=== PATIENT | male | born 1955 | race African-American/Black ===

== ENCOUNTER 2016-08-25 15:22 | Inpatient (IN) | payer OTHER ==
[2016-08-25 15:35] VITALS: BMI 25.5
--- NOTE | 2016-08-25 15:36 | PDOC ---
Rapid Medical Evaluation Time Seen by Provider: 08/25/16 15:29 Medical Evaluation: Allergies Allergy/AdvReac Type Severity Reaction Status Date / Time Penicillins Allergy Severe Rash Verified 08/25/16 15:32 seafood Allergy Severe Rash Uncoded 08/25/16 15:32 08/25/16 15:34 I have performed a brief in-person evaluation of this patient. The patient presents with a chief complaint of: 61y/o M cardiac hx, COPD p/w 1 week progressive cough, SOB. Sent by Dr. Neves to r/o PNA. Pertinent physical exam findings: tachy, O2 86-94% bibasilar coarse breath sounds, slight wheezing abd soft tachy I have ordered the following: sepsis protocol initiated 2/2 tachy and relative hypoxia, r/o pna ekg, cxr The patient will proceed to the ED for further evaluation.
[2016-08-25 16:22] LABS: BASOPHIL 0.3 % (0-2.0); MCH 28.4 pg (25.7-33.7); MCHC 33.3 g/dl (32.0-35.9); MEAN CELL VOLUME 85.1 fl (80-96); MEAN PLT VOLUME 7.6 fl (7.5-11.1); NEUTROPHILS 83.7 % (42.8-82.8); PLATELET COUNT 385 K/MM3 (134-434); RDW 15.2 % (11.9-15.9); WHITE BLOOD COUNT 11.2 K/mm3 (4.0-10.0)
[2016-08-25] MEDS ORDERED: ALBUTEROL SO4 2.5/IPRATROPIUM 0.5 INH SOL 3 ML VIAL.NEB. NEB ONE ×3 (16:37→17:30)
[2016-08-25 16:47] LABS: URINE APPEARANCE CLEAR; URINE BILIRUBIN NEGATIVE (NEGATIVE); URINE BLOOD NEGATIVE (NEGATIVE); URINE COLOR YELLOW; URINE GLUCOSE (UA) NEGATIVE (NEGATIVE); URINE KETONE TRACE (NEGATIVE); URINE LEUK ESTERASE NEGATIVE (NEGATIVE); URINE NITRITE NEGATIVE (NEGATIVE); URINE PROTEIN NEGATIVE (NEGATIVE); URINE UROBILINOGEN NEGATIVE E.U./dl (0.2-1.0)
--- NOTE | 2016-08-25 16:56 | PDOC ---
History of Present Illness <Gabriela Carter - Last Filed: 08/25/16 18:23> - History of Present Illness Initial Comments: 08/25/16 17:29 The patient is a 61 year old male with a past medical hx of COPD, asthma, CAD s/ p PCI and stents s/p CABG in 2013, HTN, HLD who presents to the ED complaining of cough and shortness of breath for 4 days. He reports his cough is productive. The patient reports he saw his PCP on Wednesday and was given a Zpack for his symptoms. The patient notes no relief of his symptoms despite taking the Zpack. The patient states he has oxygen at home but is not fully dependent on it. He states he used his nebulizer treatment one time today. He reports associated chills and diarrhea. The patient denies fever, chest pain The patient denies nausea, vomiting, abdominal pain PCP: Dr. Hendrix Advertising Agent: Dr. Bernabe Social: Former smoker Allergies: Penicillins <Cheri Solorio - Last Filed: 08/25/16 18:42> - General Chief Complaint: Shortness of Breath Stated Complaint: SOB, WHEEZING Time Seen by Provider: 08/25/16 15:29 Past History - Past Medical History Anemia: No Asthma: No Cancer: No Cardiac Disorders: Yes ([place], stent, BYPASS) CVA: No COPD: Yes CHF: Yes Dementia: No Diabetes: No GI Disorders: No Disorders: No HTN: Yes Hypercholesterolemia: Yes Liver Disease: No Psychiatric Problems: Yes (anxiety) Seizures: No Thyroid Disease: No - Surgical History Abdominal Surgery: No Appendectomy: No Cardiac Surgery: Yes (Stent, cardiaccath) Cholecystectomy: No Lung Surgery: No Neurologic Surgery: No Orthopedic Surgery: Yes (KNEE) - Immunization History Immunization Up to Date: Yes - Psycho/Social/Smoking Cessation Hx Anxiety: No Suicidal Ideation: No Smoking Status: No Smoking History: Former smoker Have you smoked in the past 12 months: No Number of Cigarettes Smoked Daily: 0 If you are a former smoker, when did you quit?: 2 years Information on smoking cessation initiated: No Hx Alcohol Use: No Drug/Substance Use Hx: No Substance Use Type: None Hx Substance Use Treatment: No <Gabriela Carter - Last Filed: 08/25/16 18:23> <Cheri Solorio - Last Filed: 02/28/17 18:42> - Past Medical History Allergies/Adverse Reactions: Allergies Allergy/AdvReac Type Severity Reaction Status Date / Time Penicillins Allergy Severe Rash Verified 08/25/16 15:32 seafood Allergy Severe Rash Uncoded 08/25/16 15:32 Home Medications: Ambulatory Orders Acetaminophen [Tylenol .Regular Strength -] 650 mg PO Q6H PRN #0 tablet Albuterol 2.5/Ipratropium 0.5 [Duoneb -] 1 amp NEB QIDR amp 05/27/16 Budesonide/Formeterol Fumarate [SYMBICORT 80/4.5mcg -] 1 puff IH BID inhaler Clopidogrel Bisulfate [Plavix -] 75 mg PO DAILY tablet 05/27/16 Furosemide [Lasix -] 40 mg PO DAILY tablet 05/27/16 Metoprolol Tartrate [Lopressor -] 25 mg PO DAILY 08/25/16 Prednisone [Deltasone -] 10 mg PO DAILY 08/25/16 Respiratory Specific PMHX - Complaint Specific PMHX Angina: No <Gabriela Carter - Last Filed: 08/25/16 18:23> Review of Systems - Review of Systems Able to Perform ROS?: Yes Comments:: 08/25/16 17:29 CONSTITUTIONAL: +Chills Absent: fever, diaphoresis, generalized weakness, malaise, loss of appetite HEENT: Absent: rhinorrhea, nasal congestion, throat pain, throat swelling, difficulty swallowing, mouth swelling, ear pain, eye pain, visual Changes CARDIOVASCULAR: Absent: chest pain, syncope, palpitations, irregular heart rate, lightheadedness , peripheral edema RESPIRATORY: +Cough, shortness of breath. Absent: orthopnea, wheezing, stridor, hemoptysis GASTROINTESTINAL: +Diarrhea Absent: abdominal pain, abdominal distension, nausea, vomiting, constipation, melena, hematochezia GENITOURINARY: Absent: dysuria, frequency, urgency, hesitancy, hematuria, flank pain, genital pain MUSCULOSKELETAL: Absent: myalgia, arthralgia, joint swelling SKIN: Absent: rash, itching, pallor NEUROLOGIC: Absent: headache, focal weakness or paresthesias, dizziness, unsteady gait, seizure, mental status changes, bladder or bowel incontinence PSYCHIATRIC: Absent: anxiety, depression, suicidal or homicidal ideation, hallucinations. <Cheri Solorio - Last Filed: 08/25/16 18:42> *Physical Exam - Vital Signs Last Vital Signs Temp Pulse Resp BP Pulse Ox 98.1 F 116 H 24 130/98 94 L 08/25/16 15:32 08/25/16 15:32 08/25/16 15:32 08/25/16 15:32 08/25/16 15:32 <Gabriela Carter - Last Filed: 08/25/16 18:23> - Vital Signs Last Vital Signs Temp Pulse Resp BP Pulse Ox 98.1 F 116 H 24 130/98 94 L 08/25/16 15:32 08/25/16 15:32 08/25/16 15:32 08/25/16 15:32 08/25/16 15:32 - Physical Exam Comments: GENERAL: Well developed, well nourished. Awake and alert. HEENT: Normocephalic, atraumatic. PERRLA, EOMI. No conjunctival pallor. Sclera are non- icteric. Moist mucous membranes. Oropharynx is clear. NECK: Supple. Full ROM. No JVD. Carotid pulses 2+ and symmetric, without bruits. No thyromegaly. No lymphadenopathy. CARDIOVASCULAR: +Tachycardic. Regular rhythm. No murmurs, rubs, or gallops. Distal pulses are 2 + and symmetric. PULMONARY: +Hypoxic, dyspneic, scattered rhonchorous breath sounds. No rales. ABDOMINAL: Soft. Non-tender. Non-distended. No rebound or guarding. No organomegaly. Normoactive bowel sounds. MUSCULOSKELETAL Normal range of motion at all joints. No bony deformities or tenderness. No CVA tenderness. EXTREMITIES: +1+ pitting edema bilateral lower extremities. No cyanosis. No clubbing. No calf tenderness. SKIN: Warm and dry. Normal capillary refill. No rashes. No jaundice. NEUROLOGICAL: Alert, awake, appropriate. Cranial nerves 2-12 intact. No deficits to light touch and temperature in face, upper extremities and lower extremities. Normal speech. PSYCHIATRIC: Cooperative. Good eye contact. Appropriate mood and affect. <IsisCheri perez - Last Filed: 08/25/16 18:42> ED Treatment Course - LABORATORY CBC & Chemistry Diagram: 08/25/16 16:06 08/25/16 16:06 - ADDITIONAL ORDERS Additional order review: Laboratory Results 08/25/16 16:06 INR Cancelled PTT (Actin FS) Cancelled 08/25/16 16:06 RBC 4.66 MCV 85.1 MCHC 33.3 RDW 15.2 D MPV 7.6 Neutrophils % 83.7 H Lymphocytes % 10.2 D Monocytes % 5.8 Eosinophils % 0.0 Basophils % 0.3 - Medications Given in the ED: ED Medications Discontinued Medications Generic Name Dose Route Start Last Admin Trade Name Freq PRN Reason Stop Dose Admin Albuterol/Ipratropium 1 amp 08/25/16 16:37 08/25/16 16:44 Duoneb - NEB 08/25/16 16:38 1 amp ONCE ONE Administration <Gabriela Carter - Last Filed: 08/25/16 18:23> - LABORATORY CBC & Chemistry Diagram: 08/25/16 16:06 08/25/16 16:06 - ADDITIONAL ORDERS Additional order review: Laboratory Results 08/25/16 08/25/16 08/25/16 17:15 16:06 16:06 INR PTT (Actin FS) VBG pH 7.33 POC VBG pCO2 65.7 H* D POC VBG pO2 24.9 L Mixed VBG HCO3 34.3 H Sodium 138 Potassium 4.6 Chloride 95 L Carbon Dioxide 32 Anion Gap 11 BUN 12 D Creatinine 0.9 Creat Clearance w eGFR > 60 Random Glucose 115 H D Lactic Acid 1.392 Calcium 9.6 Total Bilirubin 0.9 D AST 20 D ALT 27 D Alkaline Phosphatase 206 H D Creatine Kinase 80 Troponin I < 0.02 D B-Natriuretic Peptide 46.19 Total Protein 8.2 D Albumin 3.8 D Urine Color Urine Appearance Urine pH Ur Specific [place] Urine Protein Urine Glucose (UA) Urine Ketones Urine Blood Urine Nitrite Urine Bilirubin Urine Urobilinogen Ur Leukocyte Esterase 08/25/16 08/25/16 16:06 16:06 INR Cancelled PTT (Actin FS) Cancelled VBG pH POC VBG pCO2 POC VBG pO2 Mixed VBG HCO3 Sodium Potassium Chloride Carbon Dioxide Anion Gap BUN Creatinine Creat Clearance w eGFR Random Glucose Lactic Acid Calcium Total Bilirubin AST ALT Alkaline Phosphatase Creatine Kinase Troponin I B-Natriuretic Peptide Total Protein Albumin Urine Color Yellow Urine Appearance Clear Urine pH 5.0 Ur Specific [place] 1.023 Urine Protein Negative Urine Glucose (UA) Negative Urine Ketones Trace H Urine Blood Negative Urine Nitrite Negative Urine Bilirubin Negative Urine Urobilinogen Negative Ur Leukocyte Esterase Negative 08/25/16 16:06 Influenza Types A,B Antigen (ISRA) - Final Nasopharyngeal Swab - Final 08/25/16 16:06 RBC 4.66 MCV 85.1 MCHC 33.3 RDW 15.2 D MPV 7.6 Neutrophils % 83.7 H Lymphocytes % 10.2 D Monocytes % 5.8 Eosinophils % 0.0 Basophils % 0.3 - RADIOLOGY Radiograph Interpretation: 08/25/16 17:40 Chest X-Ray No discrete infiltrate or pleural effusion is noted. There has been no definite interval change in comparison to a previous radiographic study of 2015. Advanced centrilobular emphysema is noted (as also visualized on a chest CT exam of 02/12/2016). The heart, demarco and mediastinum demonstrate no obvious abnormality. Status post median sternotomy. Impression: No definite interval change is seen as discussed. Reported By: Nacho Avalos MD 08/25/16 1720 - Medications Given in the ED: ED Medications Discontinued Medications Generic Name Dose Route Start Last Admin Trade Name Freq PRN Reason Stop Dose Admin Albuterol/Ipratropium 1 amp 08/25/16 16:37 08/25/16 16:44 Duoneb - NEB 08/25/16 16:38 1 amp ONCE ONE Administration <Cheir Solorio - Last Filed: 08/25/16 18:42> Medical Decision Making - Medical Decision Making 08/25/16 16:57 61 yo male with PMH copd,CAD, s/p cabg presents for increasing dyspnea and cough for past 3-4 adys -he was referred in by his pulmonololgist Dr Neves -primary physician Dr Todd Vs tachycardia 115, hypoxic 89% on room air -course rhonchi b/l on lung asculatation -cvs tachy -scant pitting edema differential includes pna,copd exacerbation,chf -curently receiving resp treatment and placed on 2 L nasal cannula 08/25/16 18:20 negative cardiac enzyme -bnp is normal cxr negative IMP copd exavcerba <Gabriela Carter - Last Filed: 08/25/16 18:23> - Medical Decision Making 08/25/16 18:[address] Hendrix at 1824, patients case was discussed <Cheri Solorio - Last Filed: 08/25/16 18:42> *DC/Admit/Observation/Transfer - Discharge Dispostion Admit: Yes <Gabriela Carter - Last Filed: 08/25/16 18:23> - Attestations Scribe Attestion: 08/25/16 17:29 Documentation prepared by Cheri Solorio, acting as dental assistant medical assistant for Gabriela Carter MD/DO. <Cheri Solorio - Last Filed: 08/25/16 18:42> Diagnosis at time of Disposition: COPD exacerbation, Acute on chronic respiratory failure with hypoxemia, Cough - Referrals Referrals: Yohana Hendrix MD [Primary Care Provider] -
[2016-08-25 17:00] LABS: ALBUMIN 3.8 g/dl (3.4-5.0); ANION GAP 11 (8-16); BILIRUBIN,TOTAL 0.9 mg/dL (0.2-1.0); CALCIUM 9.6 mg/dL (8.5-10.1); CO2 32 mmol/L (21-32); CREATININE 0.9 mg/dL (0.7-1.3); GLUCOSE,RANDOM 115 mg/dL (74-106); SGOT/AST 20 U/L (15-37); SGPT/ALT 27 U/L (12-78); TOT PROT 8.2 g/dl (6.4-8.2)
[2016-08-25 17:03] LABS: ALK PHOS 206 U/L (45-117); TROPONIN I < 0.02 ng/ml (0.00-0.05)
[2016-08-25 17:26] LABS: VENOUS PH 7.33 (7.32-7.42)
[2016-08-25] MEDS ORDERED: methylPREDNISolone NA SUCC 125 MG/2 ML VIAL IVPB ONE (17:26)
[2016-08-25 17:27] LABS: VENOUS BLOOD GAS HCO3 34.3 meq/L (19-25)
[2016-08-25] MEDS ORDERED: methylPREDNISolone NA SUCC 125 MG/2 ML VIAL ONE (17:30)
[2016-08-25 17:59] LABS: INR 1.06 (0.82-1.09); PROTHROMBIN TIME (PATIENT) 11.7 SEC (9.98-11.88)
[2016-08-25] MEDS: cefTRIAXone 1 GM/50 ML BAG (PRE-DOCKED) IVPB SCH (22:39)
[2016-08-25] MEDS: ALPRAZolam 0.25 MG TABLET PO PRN (22:40)
[2016-08-25] MEDS: AZITHROMYCIN IVPB 250 MG in DEXTROSE 5%-WATER - 250 ML IVPB SCH (22:52)
[2016-08-25] MEDS: BUDESONIDE/FORMETEROL FUMARATE 80/4.5 mcg INHALER IH SCH (22:52)
[2016-08-26] MEDS: ALBUTEROL SO4 2.5/IPRATROPIUM 0.5 INH SOL 3 ML VIAL.NEB. NEB SCH ×3 (00:18→11:10)
--- NOTE | 2016-08-26 00:38 | HOSP ---
Subjective - Review of Symptoms Events since last encounter: RN call to inform that patient was getting IV azithromycin and it infiltrated in surrounding tissue Patient seen and examined. Patient complains of pain in site of infiltration, denies and numbness and weakness. Denies rash, Moving all fingers of left had. on exam FL 151/78 hr 119 SPO2 95% ON 2 L chest ; scattered rhonci breath sounds. No rales. CVS s1s2 normal local exam: Left upper limb moving all fingers, sensation to touch intact, power 5/5, peripheral pulses palpable. mild swelling preset in site of infiltration, tender to touch, no erythema. Adv ; Remove IV line from site of infiltration. limb elevation cold compression Physical Examination Vital Signs: Vital Signs Temperature 98.1 F 08/25/16 15:32 Pulse Rate 118 H 08/25/16 19:02 Respiratory Rate 20 08/25/16 19:02 Blood Pressure 139/108 08/25/16 19:02 O2 Sat by Pulse Oximetry (%) 100 08/25/16 19:02 Visit type - Emergency Visit Emergency Visit: Yes ED Registration Date: 08/25/16 Care time: The patient presented to the Emergency Department on the above date and was hospitalized for further evaluation of their emergent condition. - New Patient This patient is new to me today: Yes Date on this admission: 08/26/16 - Critical Care Critical Care patient: No
[2016-08-26] MEDS: ACETAMINOPHEN 325 MG TABLET (FP) PO PRN ×2 (00:44→10:40)
[2016-08-26] MEDS: methylPREDNISolone NA SUCC 40 MG/1 ML VIAL IVPB SCH ×2 (01:43→10:40)
[2016-08-26] MEDS ORDERED: PT OWN MED DRAWER 7, Y5N ONE ×2 (06:23→21:16)
[2016-08-26 07:28] LABS: MCH 28.3 pg (25.7-33.7); MCHC 33.1 g/dl (32.0-35.9); MEAN CELL VOLUME 85.5 fl (80-96); MEAN PLT VOLUME 7.2 fl (7.5-11.1); PLATELET COUNT 347 K/MM3 (134-434); RDW 14.7 % (11.9-15.9); WHITE BLOOD COUNT 8.4 K/mm3 (4.0-10.0)
[2016-08-26 07:59] LABS: ALBUMIN 3.2 g/dl (3.4-5.0); ANION GAP 7 (8-16); BILIRUBIN,TOTAL 0.6 mg/dL (0.2-1.0); CALCIUM 9.3 mg/dL (8.5-10.1); CO2 31 mmol/L (21-32); CREATININE 0.8 mg/dL (0.7-1.3); GLUCOSE,RANDOM 124 mg/dL (74-106); SGOT/AST 15 U/L (15-37); SGPT/ALT 20 U/L (12-78)
[2016-08-26 08:00] LABS: ALK PHOS 175 U/L (45-117); TOT PROT 7.1 g/dl (6.4-8.2)
[2016-08-26] MEDS: CLOPIDOGREL BISULFATE 75 MG TABLET (FP) PO SCH (10:40)
[2016-08-26] MEDS: FUROSEMIDE 40 MG TABLET (FP) PO SCH (10:42)
[2016-08-26] MEDS: BUDESONIDE/FORMETEROL FUMARATE 80/4.5 mcg INHALER IH SCH ×2 (10:42→21:25)
[2016-08-26] MEDS: cefTRIAXone 1 GM/50 ML BAG (PRE-DOCKED) IVPB SCH ×2 (11:37→21:25)
[2016-08-26] MEDS: AZITHROMYCIN IVPB 250 MG in DEXTROSE 5%-WATER - 250 ML IVPB SCH (12:17)
--- NOTE | 2016-08-26 13:19 | CONSULT ---
Consultation: REQUESTING PROVIDER: CONSULT REQUEST: We have been asked to medically evaluate this patient for sob HISTORY OF PRESENT ILLNESS: This is a 61 yo m with PMH of COPD on 2L at home (noncompliant), past heavy smoker, asthma, CAD s/p PCI, CABG 2013, HTN, HLD, who presents due to SOB that started 4 days ago and has gotten worse. He reports increased cough productive of yellow flem, chills and diarrhea. His PCP prescribed him a Z Pack past wed, which helped loosen his respiratory secretions but didnt improve his sob. He currently feels unimproved from presentation. He is able to ambulate to bathroom on 2 L O2. He denies f/c, n/v, chest pain, abd pain, h/a, rhinorrhea or throat pain. Denies sick contacts. 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 REVIEW OF SYSTEMS: CONSTITUTIONAL: Absent: diaphoresis, malaise, loss of appetite, weight change HEENT: Absent: rhinorrhea, nasal congestion, throat pain, throat swelling CARDIOVASCULAR: Absent: chest pain, syncope, palpitations, peripheral edema RESPIRATORY: Absent: orthopnea, stridor, hemoptysis GASTROINTESTINAL: Absent: abdominal pain, abdominal distension, nausea, vomiting GENITOURINARY: Absent: dysuria MUSCULOSKELETAL: Absent: myalgia, arthralgia SKIN: Absent: rash, itching, pallor HEMATOLOGIC/IMMUNOLOGIC: Absent: frequent infections ENDOCRINE: Absent: heat intolerance, cold intolerance NEUROLOGIC: Absent: headache, focal weakness or paresthesias, dizziness PSYCHIATRIC: Absent: anxiety, depression PHYSICAL EXAMINATION Vital Signs - 24 hr 08/25/16 08/25/16 08/26/16 19:02 21:00 01:48 Temperature 98.9 F Pulse Rate 118 H 119 H 89 Respiratory 20 24 Rate Blood Pressure 139/108 151/78 O2 Sat by Pulse 100 95 Oximetry (%) 08/26/16 08/26/16 08/26/16 02:00 06:00 10:00 Temperature 97.8 F 97.8 F Pulse Rate 92 H 108 H Respiratory 20 24 Rate Blood Pressure 127/72 127/78 O2 Sat by Pulse 100 Oximetry (%) GENERAL: Awake, alert, and fully oriented, in no acute distress. HEAD: Normal with no signs of trauma. EYES: Pupils equal, round and reactive to light, extraocular movements intact, sclera anicteric, conjunctiva clear. EARS, NOSE, THROAT: Moist mucous membranes. NECK: supple without JVD LUNGS: diffusely restricted air movement, no wheezes HEART: Regular rate and rhythm, normal S1 and S2 ABDOMEN: Soft, nontender, not distended, normoactive bowel sounds MUSCULOSKELETAL: No CVA tenderness. UPPER EXTREMITIES: No peripheral edema. LOWER EXTREMITIES: No peripheral edema. NEUROLOGICAL: Cranial nerves II-XII grossly intact. Normal speech. PSYCHIATRIC: Cooperative. Good eye contact. Appropriate mood and affect. SKIN: Warm, dry Laboratory Results - last 24 hr 08/26/16 08/26/16 07:15 07:15 WBC 8.4 RBC 4.35 Hgb 12.3 Hct 37.2 MCV 85.5 MCHC 33.1 RDW 14.7 Plt Count 347 MPV 7.2 L Sodium 137 Potassium 4.6 Chloride 99 Carbon Dioxide 31 Anion Gap 7 L BUN 15 D Creatinine 0.8 Creat Clearance w eGFR > 60 Random Glucose 124 H Calcium 9.3 Total Bilirubin 0.6 D AST 15 D ALT 20 D Alkaline Phosphatase 175 H Total Protein 7.1 Albumin 3.2 L Active Medications Generic Name Dose Route Start Last Admin Trade Name Freq PRN Reason Stop Dose Admin Acetaminophen 650 mg 08/25/16 21:11 08/26/16 10:40 Tylenol - PO 650 mg Q6H PRN Administration FEVER OR PAIN Albuterol/Ipratropium 1 amp 08/26/16 00:00 08/26/16 06:11 Duoneb - NEB 1 amp QIDR VIOLA Administration Alprazolam 0.5 mg 08/25/16 21:13 08/25/16 22:40 Xanax - PO 0.5 mg HS PRN Administration Budesonide/Formoterol Fumarate 1 puff 08/25/16 22:00 08/26/16 10:42 Symbicort 80/4.5mcg - IH 1 inh BID VIOLA Administration Ceftriaxone Sodium 1 gm 08/25/16 22:00 08/26/16 11:37 Rocephin 1gm Ivpb (Pre-Docked) IVPB 1 gm BID VIOLA Administration Clopidogrel Bisulfate 75 mg 08/26/16 10:00 08/26/16 10:40 Plavix - PO 75 mg DAILY VIOLA Administration Furosemide 40 mg 08/26/16 10:00 08/26/16 10:42 Lasix - PO 40 mg DAILY VIOLA Administration Azithromycin 250 mg/ Dextrose 250 mls @ 250 mls/hr 08/25/16 21:15 08/26/16 12: 17 IVPB 08/27/16 10:59 250 mls/hr DAILY VIOLA Administration Methylprednisolone Sodium Succinate 40 mg 08/26/16 02:00 08/26/16 10:40 Solu-Medrol - IVPB 40 mg Q8H-IV VIOLA Administration ASSESSMENT/PLAN: Acute on chonic COPD exacerbation with hypoxemic, hypercarbic respiratory failure -possibly superimposed PNA -CXR unremarkable -noncompliant with home O2 (supposed to wear continuously) -clinically unimproved at this time -Medrol 40 Q8 -azithromycin, rocephin day 2 -daliresp, spiriva -symbicort, dioneb -supplemental O2 NC, possible BIPAP if desats -will require pulmonary rehab CAD -s/p PCI, CABG -No apparent acute events/exacerbation -regular outpatient cardiac f/u HTN -lasix HLD -continue home meds Dispo: We will continue to follow the patient. Thank you for this consultative opportunity. Problem List - Problems (1) Acute on chronic respiratory failure with hypoxemia Code(s): J96.21 - ACUTE AND CHRONIC RESPIRATORY FAILURE WITH HYPOXIA (2) Acute on chronic respiratory failure with hypoxia and hypercapnia Code(s): J96.21 - ACUTE AND CHRONIC RESPIRATORY FAILURE WITH HYPOXIA J96.22 - ACUTE AND CHRONIC RESPIRATORY FAILURE WITH HYPERCAPNIA (3) COPD exacerbation Code(s): J44.1 - CHRONIC OBSTRUCTIVE PULMONARY DISEASE W (ACUTE) EXACERBATION (4) Cough Code(s): R05 - COUGH (5) Abnormal LFTs Code(s): R79.89 - OTHER SPECIFIED ABNORMAL FINDINGS OF BLOOD CHEMISTRY (6) Anxiety Code(s): F41.9 - ANXIETY DISORDER, UNSPECIFIED (7) CAD (coronary artery disease) Code(s): I25.10 - ATHSCL HEART DISEASE OF [place] CORONARY ARTERY W/O ANG PCTRS Qualifiers: Coronary Disease-Associated Artery/Lesion type: [place] artery [place] vs. transplanted heart: [place] heart Associated angina: without angina Qualified Code(s): I25.10 - Atherosclerotic heart disease of [place] coronary artery without angina pectoris (8) COPD (chronic obstructive pulmonary disease) Code(s): J44.9 - CHRONIC OBSTRUCTIVE PULMONARY DISEASE, UNSPECIFIED (9) HTN (hypertension) Code(s): I10 - ESSENTIAL (PRIMARY) HYPERTENSION Qualifiers: Hypertension type: essential hypertension Qualified Code(s): I10 - Essential (primary) hypertension (10) History of coronary artery bypass graft Code(s): Z95.1 - PRESENCE OF AORTOCORONARY BYPASS GRAFT (11) History of percutaneous coronary intervention Code(s): Z98.89 - OTHER SPECIFIED POSTPROCEDURAL STATES * DO NOT USE * (12) Hypercholesterolemia Code(s): E78.0 - PURE HYPERCHOLESTEROLEMIA * DO NOT USE * (13) Pneumonia Code(s): J18.9 - PNEUMONIA, UNSPECIFIED ORGANISM Visit type - Emergency Visit Emergency Visit: Yes ED Registration Date: 08/25/16 Care time: The patient presented to the Emergency Department on the above date and was hospitalized for further evaluation of their emergent condition. - New Patient This patient is new to me today: Yes Date on this admission: 08/26/16 - Critical Care Critical Care patient: No
--- NOTE | 2016-08-26 13:59 | PN ---
Teaching Attending Note Name of Resident: Monique Rhoades ATTENDING PHYSICIAN STATEMENT I saw and evaluated the patient. I reviewed the resident's note and discussed the case with the resident. I agree with the resident's findings and plan as documented. PULMONARY CONSULTATION IMP ACUTE ON CHRONIC HYPOXEMIC/HYPERCAPNEC RESPIRATORY FAILURE COPD EXACERBATION ASHD /P CABG,STENTS HTN HLD PLAN IV STEROIDS INHALED BRONCHODILATORS O2 BIPAP IF PT DEVELOPES INCREASED RESPIRATORY DISTRESS,HYPERCAPNEA ANTIBIOTICS ABG DALIRESP DR GONZALEZ Problem List - Problems (1) Acute on chronic respiratory failure with hypoxia and hypercapnia Code(s): J96.21 - ACUTE AND CHRONIC RESPIRATORY FAILURE WITH HYPOXIA J96.22 - ACUTE AND CHRONIC RESPIRATORY FAILURE WITH HYPERCAPNIA (2) COPD exacerbation Code(s): J44.1 - CHRONIC OBSTRUCTIVE PULMONARY DISEASE W (ACUTE) EXACERBATION (3) Cough Code(s): R05 - COUGH (4) Anxiety Code(s): F41.9 - ANXIETY DISORDER, UNSPECIFIED (5) CAD (coronary artery disease) Code(s): I25.10 - ATHSCL HEART DISEASE OF [place] CORONARY ARTERY W/O ANG PCTRS Qualifiers: Coronary Disease-Associated Artery/Lesion type: [place] artery [place] vs. transplanted heart: [place] heart Associated angina: without angina Qualified Code(s): I25.10 - Atherosclerotic heart disease of [place] coronary artery without angina pectoris (6) COPD (chronic obstructive pulmonary disease) Code(s): J44.9 - CHRONIC OBSTRUCTIVE PULMONARY DISEASE, UNSPECIFIED (7) HTN (hypertension) Code(s): I10 - ESSENTIAL (PRIMARY) HYPERTENSION Qualifiers: Hypertension type: essential hypertension Qualified Code(s): I10 - Essential (primary) hypertension (8) History of coronary artery bypass graft Code(s): Z95.1 - PRESENCE OF AORTOCORONARY BYPASS GRAFT
--- NOTE | 2016-08-26 14:13 | EKG ---
Test Reason : Blood Pressure : / mmHG Vent. Rate : 110 BPM Atrial Rate : 110 BPM P-R Int : 112 ms QRS Dur : 130 ms QT Int : 352 ms P-R-T Axes : 079 085 061 degrees QTc Int : 476 ms POOR DATA QUALITY, INTERPRETATION MAY BE ADVERSELY AFFECTED SINUS TACHYCARDIA WITH OCCASIONAL PREMATURE VENTRICULAR COMPLEXES POSSIBLE LEFT ATRIAL ENLARGEMENT RIGHT BUNDLE BRANCH BLOCK ABNORMAL ECG WHEN COMPARED WITH ECG OF 21-MAY-2016 16:33, PREMATURE VENTRICULAR COMPLEXES ARE NOW PRESENT Confirmed by BRIANNA RAMOS, TORSTEN ([id number]) on 08/26/2016 2:13:27 PM Referred By: Confirmed By:TORSTEN REED MD
[2016-08-26] MEDS: methylPREDNISolone NA SUCC 125 MG/2 ML VIAL IVPB SCH ×2 (15:05→20:33)
[2016-08-26] MEDS: TIOTROPIUM BROMIDE 18 MCG/INH (DEVICE W/ 5 CAPSULES) IH SCH (16:50)
[2016-08-26] MEDS: ROFLUMILAST 500 MCG TABLET PO SCH (16:50)
--- NOTE | 2016-08-26 18:33 | HP ---
DATE OF ADMISSION: HISTORY: This is a 61-year-old male known to have COPD, ASHD status post coronary artery bypass graft surgery who was sent by Dr. Neves to the emergency room because of increasing shortness of breath. In the ER, chest x-ray was done, which was no infiltrate. Got admitted with the diagnosis of acute exacerbation of COPD. This morning he is feeling a little better. PHYSICAL EXAMINATION: General: Awake, alert, and oriented not in distress. Vital Signs: BP 130/80, pulse 72, respirations 20, temperature 97. HEENT: Unremarkable. NECK: Supple. No JVD. LUNGS: Air entry poor both sides. HEART: S1, S2 normal. No S3, S4. ABDOMEN: Soft, nontender. EXTREMITIES: Legs, no edema. NEUROLOGIC: Grossly normal. LABORATORY: At the time of admission, WBC 11.2 and this morning 8.4. Hemoglobin 12.3. Chemistry: Electrolytes are normal. Albumin 3.2. Chest x-ray: Chronic changes, no acute infiltrate. IMPRESSION: Exacerbation of chronic obstructive pulmonary disease, arteriosclerotic heart disease. PLAN: IV steroids. IV antibiotics. Pulmonary consult, Dr. Neves. Will follow. ARACELY JIMENEZ M.D. [id number]
[2016-08-26] MEDS: ALBUTEROL SO4 0.083% IH SOL 2.5 MG/3 ML VIAL.NEB. NEB PRN (20:41)
[2016-08-26] MEDS: ALPRAZolam 0.25 MG TABLET PO PRN (21:25)
[2016-08-27] MEDS: methylPREDNISolone NA SUCC 125 MG/2 ML VIAL IVPB SCH ×4 (03:25→20:09)
[2016-08-27] MEDS: ALBUTEROL SO4 0.083% IH SOL 2.5 MG/3 ML VIAL.NEB. NEB PRN ×2 (03:38→20:00)
--- NOTE | 2016-08-27 09:03 | PN ---
Progress Note, Physician Chief Complaint: SOB persists History of Present Illness: Dr Zapien pulmonary consult appreciated - Current Medication List Current Medications: Active Medications Acetaminophen (Tylenol -) 650 mg PO Q6H PRN PRN Reason: FEVER OR PAIN Last Admin: 08/26/16 10:40 Dose: 650 mg Albuterol Sulfate (Ventolin 0.083% Nebulizer Soln -) 1 amp NEB Q4H PRN PRN Reason: SHORT OF BREATH/WHEEZING Last Admin: 08/27/16 03:38 Dose: 1 amp Alprazolam (Xanax -) 0.5 mg PO HS PRN Last Admin: 08/26/16 21:25 Dose: 0.5 mg Budesonide/Formoterol Fumarate (Symbicort 80/4.5mcg -) 1 puff IH BID [facility] Last Admin: 08/26/16 21:25 Dose: 1 inh Ceftriaxone Sodium (Rocephin 1gm Ivpb (Pre-Docked)) 1 gm IVPB BID [facility] Last Admin: 08/26/16 21:25 Dose: 1 gm Clopidogrel Bisulfate (Plavix -) 75 mg PO DAILY [facility] Last Admin: 08/26/16 10:40 Dose: 75 mg Furosemide (Lasix -) 40 mg PO DAILY [facility] Last Admin: 08/26/16 10:42 Dose: 40 mg Azithromycin 250 mg/ Dextrose 250 mls @ 250 mls/hr IVPB DAILY [facility] Stop: 08/27/16 10:59 Last Admin: 08/26/16 12:17 Dose: 250 mls/hr Methylprednisolone Sodium Succinate (Solu-Medrol -) 60 mg IVPB Q6H-IV [facility] Last Admin: 08/27/16 03:25 Dose: 60 mg Roflumilast (Daliresp -) 500 mcg PO DAILY [facility] Last Admin: 08/26/16 16:50 Dose: 500 mcg Tiotropium [place] (Spiriva -) 1 puff IH DAILY [facility] Last Admin: 08/26/16 16:50 Dose: 1 pfu - Objective Vital Signs: Vital Signs Temperature 97.9 F 08/27/16 06:00 Pulse Rate 109 H 08/27/16 06:00 Respiratory Rate 18 08/27/16 06:00 Blood Pressure 116/70 08/27/16 06:00 O2 Sat by Pulse Oximetry (%) 98 08/26/16 21:00 Constitutional: Yes: Mild Distress Eyes: Yes: WNL HENT: Yes: WNL Neck: Yes: WNL Cardiovascular: Yes: WNL Respiratory: Yes: On Nasal O2, SOB Gastrointestinal: Yes: WNL ...Rectal Exam: Yes: Deferred Genitourinary: Yes: WNL Breast(s): Yes: WNL Musculoskeletal: Yes: WNL Neurological: Yes: Alert Labs: CBC, BMP 08/26/16 07:15 08/26/16 07:15 INR, PTT INR 1.06 (0.82-1.09) 08/25/16 16:06 Assessment/Plan Continue same trt
[2016-08-27] MEDS ORDERED: PT OWN MED DRAWER 7, Y5N ONE ×2 (09:57→20:42)
[2016-08-27] MEDS: ROFLUMILAST 500 MCG TABLET PO SCH (10:18)
[2016-08-27] MEDS: FUROSEMIDE 40 MG TABLET (FP) PO SCH (10:18)
[2016-08-27] MEDS: cefTRIAXone 1 GM/50 ML BAG (PRE-DOCKED) IVPB SCH ×2 (10:19→21:13)
[2016-08-27] MEDS: CLOPIDOGREL BISULFATE 75 MG TABLET (FP) PO SCH (10:19)
[2016-08-27] MEDS: TIOTROPIUM BROMIDE 18 MCG/INH (DEVICE W/ 5 CAPSULES) IH SCH (10:19)
[2016-08-27] MEDS: BUDESONIDE/FORMETEROL FUMARATE 80/4.5 mcg INHALER IH SCH ×2 (10:23→21:13)
[2016-08-27] MEDS: AZITHROMYCIN IVPB 250 MG in DEXTROSE 5%-WATER - 250 ML IVPB SCH (10:23)
--- NOTE | 2016-08-27 11:35 | PN ---
Physical Exam: SUBJECTIVE: Patient seen and examined Patient resting in bed comfortably NAD. No acute events. afebrile and hemodynamically stable. 98% on 2 L. states he vomited at night duwe to severe cough, which has now improved. States he feels a little less sob as well. yellow sputum. 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 Denies f/c , chest pain, abd pain, n/v, h/a, diarrhea, dysuria. OBJECTIVE: Vital Signs Period Temp Pulse Resp BP Sys/Ellison Pulse Ox Last 24 Hr 97.2 F-98.5 F 109-112 16-24 116-142/68-79 98 GENERAL: Awake, alert, and fully oriented, in no acute distress. HEAD: Normal with no signs of trauma. EYES: Pupils equal, round and reactive to light, extraocular movements intact, sclera anicteric, conjunctiva clear. EARS, NOSE, THROAT: Moist mucous membranes. NECK: supple without JVD LUNGS: slightly improved air movement HEART: Regular rate and rhythm, normal S1 and S2 ABDOMEN: Soft, nontender, not distended, normoactive bowel sounds MUSCULOSKELETAL: No CVA tenderness. UPPER EXTREMITIES: No peripheral edema. LOWER EXTREMITIES: No peripheral edema. NEUROLOGICAL: Cranial nerves II-XII grossly intact. Normal speech. PSYCHIATRIC: Cooperative. Good eye contact. Appropriate mood and affect. SKIN: Warm, dry Active Medications Generic Name Dose Route Start Last Admin Trade Name Freq PRN Reason Stop Dose Admin Acetaminophen 650 mg 08/25/16 21:11 08/26/16 10:40 Tylenol - PO 650 mg Q6H PRN Administration FEVER OR PAIN Albuterol Sulfate 1 amp 08/26/16 14:03 08/27/16 03:38 Ventolin 0.083% Nebulizer Soln - NEB 1 amp Q4H PRN Administration SHORT OF BREATH/WHEEZING Alprazolam 0.5 mg 08/25/16 21:13 08/26/16 21:25 Xanax - PO 0.5 mg HS PRN Administration Budesonide/Formoterol Fumarate 1 puff 08/25/16 22:00 08/27/16 10:23 Symbicort 80/4.5mcg - IH 1 inh BID [facility] Administration Ceftriaxone Sodium 1 gm 08/25/16 22:00 08/27/16 10:19 Rocephin 1gm Ivpb (Pre-Docked) IVPB 1 gm BID [facility] Administration Clopidogrel Bisulfate 75 mg 08/26/16 10:00 08/27/16 10:19 Plavix - PO 75 mg DAILY [facility] Administration Furosemide 40 mg 08/26/16 10:00 08/27/16 10:18 Lasix - PO 40 mg DAILY [facility] Administration Methylprednisolone Sodium Succinate 60 mg 08/26/16 15:00 08/27/16 10:18 Solu-Medrol - IVPB 60 mg Q6H-IV [facility] Administration Roflumilast 500 mcg 08/26/16 14:15 08/27/16 10:18 Daliresp - PO 500 mcg DAILY [facility] Administration Tiotropium [place] 1 puff 08/26/16 14:15 08/27/16 10:19 Spiriva - IH 1 pfu DAILY [facility] Administration ASSESSMENT/PLAN: 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 Thank you for this consultative opportunity. Problem List - Problems (1) Acute on chronic respiratory failure with hypoxemia Code(s): J96.21 - ACUTE AND CHRONIC RESPIRATORY FAILURE WITH HYPOXIA (2) Acute on chronic respiratory failure with hypoxia and hypercapnia Code(s): J96.21 - ACUTE AND CHRONIC RESPIRATORY FAILURE WITH HYPOXIA J96.22 - ACUTE AND CHRONIC RESPIRATORY FAILURE WITH HYPERCAPNIA (3) COPD exacerbation Code(s): J44.1 - CHRONIC OBSTRUCTIVE PULMONARY DISEASE W (ACUTE) EXACERBATION (4) Cough Code(s): R05 - COUGH (5) Abnormal LFTs Code(s): R79.89 - OTHER SPECIFIED ABNORMAL FINDINGS OF BLOOD CHEMISTRY (6) Anxiety Code(s): F41.9 - ANXIETY DISORDER, UNSPECIFIED (7) CAD (coronary artery disease) Code(s): I25.10 - ATHSCL HEART DISEASE OF [place] CORONARY ARTERY W/O ANG PCTRS Qualifiers: Coronary Disease-Associated Artery/Lesion type: [place] artery [place] vs. transplanted heart: [place] heart Associated angina: without angina Qualified Code(s): I25.10 - Atherosclerotic heart disease of [place] coronary artery without angina pectoris (8) COPD (chronic obstructive pulmonary disease) Code(s): J44.9 - CHRONIC OBSTRUCTIVE PULMONARY DISEASE, UNSPECIFIED (9) HTN (hypertension) Code(s): I10 - ESSENTIAL (PRIMARY) HYPERTENSION Qualifiers: Hypertension type: essential hypertension Qualified Code(s): I10 - Essential (primary) hypertension (10) History of coronary artery bypass graft Code(s): Z95.1 - PRESENCE OF AORTOCORONARY BYPASS GRAFT (11) History of percutaneous coronary intervention Code(s): Z98.89 - OTHER SPECIFIED POSTPROCEDURAL STATES * DO NOT USE * (12) Hypercholesterolemia Code(s): E78.0 - PURE HYPERCHOLESTEROLEMIA * DO NOT USE * (13) Pneumonia Code(s): J18.9 - PNEUMONIA, UNSPECIFIED ORGANISM Visit type - Emergency Visit Emergency Visit: Yes ED Registration Date: 08/25/16 Care time: The patient presented to the Emergency Department on the above date and was hospitalized for further evaluation of their emergent condition. - New Patient This patient is new to me today: No - Critical Care Critical Care patient: No - Discharge Referral Referred to [facility] Med P.C.: No
--- NOTE | 2016-08-27 16:13 | PN ---
Teaching Attending Note Name of Resident: Monique Rhoades ATTENDING PHYSICIAN STATEMENT I saw and evaluated the patient. I reviewed the resident's note and discussed the case with the resident. I agree with the resident's findings and plan as documented. IMP ACUTE ON CHRONIC HYPOXEMIC/HYPERCAPNEC RESPIRATORY FAILURE COPD EXACERBATION ASHD /P CABG,STENTS HTN HLD PLAN IV STEROIDS INHALED BRONCHODILATORS O2 BIPAP IF PT DEVELOPES INCREASED RESPIRATORY DISTRESS,HYPERCAPNEA ANTIBIOTICS ABG ONEYDA DAMON MD
[2016-08-27] MEDS: ALPRAZolam 0.25 MG TABLET PO PRN (20:45)
[2016-08-28] MEDS: methylPREDNISolone NA SUCC 125 MG/2 ML VIAL IVPB SCH ×4 (04:13→20:58)
[2016-08-28] MEDS: ALBUTEROL SO4 0.083% IH SOL 2.5 MG/3 ML VIAL.NEB. NEB PRN ×3 (06:35→14:00)
--- NOTE | 2016-08-28 08:59 | PN ---
Progress Note, Physician Chief Complaint: SOB persists History of Present Illness: On IV steroids and IV antibiotics - Current Medication List Current Medications: Active Medications Acetaminophen (Tylenol -) 650 mg PO Q6H PRN PRN Reason: FEVER OR PAIN Last Admin: 08/26/16 10:40 Dose: 650 mg Albuterol Sulfate (Ventolin 0.083% Nebulizer Soln -) 1 amp NEB Q4H PRN PRN Reason: SHORT OF BREATH/WHEEZING Last Admin: 08/28/16 06:35 Dose: 1 amp Alprazolam (Xanax -) 0.5 mg PO HS PRN Last Admin: 08/27/16 20:45 Dose: 0.5 mg Budesonide/Formoterol Fumarate (Symbicort 80/4.5mcg -) 1 puff IH BID [facility] Last Admin: 08/27/16 21:13 Dose: 1 inh Ceftriaxone Sodium (Rocephin 1gm Ivpb (Pre-Docked)) 1 gm IVPB BID [facility] Last Admin: 08/27/16 21:13 Dose: 1 gm Clopidogrel Bisulfate (Plavix -) 75 mg PO DAILY [facility] Last Admin: 08/27/16 10:19 Dose: 75 mg Furosemide (Lasix -) 40 mg PO DAILY [facility] Last Admin: 08/27/16 10:18 Dose: 40 mg Methylprednisolone Sodium Succinate (Solu-Medrol -) 60 mg IVPB Q6H-IV [facility] Last Admin: 08/28/16 04:13 Dose: 60 mg Roflumilast (Daliresp -) 500 mcg PO DAILY [facility] Last Admin: 08/27/16 10:18 Dose: 500 mcg Tiotropium [place] (Spiriva -) 1 puff IH DAILY [facility] Last Admin: 08/27/16 10:19 Dose: 1 pfu - Objective Vital Signs: Vital Signs Temperature 98.3 F 08/28/16 06:00 Pulse Rate 101 H 08/28/16 06:00 Respiratory Rate 18 08/28/16 06:00 Blood Pressure 133/81 08/28/16 06:00 O2 Sat by Pulse Oximetry (%) 98 08/27/16 21:00 Constitutional: Yes: Mild Distress Eyes: Yes: WNL HENT: Yes: WNL Neck: Yes: WNL Cardiovascular: Yes: WNL Respiratory: Yes: On Nasal O2, Poor Air Entry Gastrointestinal: Yes: WNL ...Rectal Exam: Yes: Deferred Genitourinary: Yes: WNL Musculoskeletal: Yes: WNL Edema: LUE: Trace, RUE: Trace, LLE: Trace, RLE: Trace Neurological: Yes: Alert Psychiatric: Yes: WNL Labs: CBC, BMP 08/26/16 07:15 08/26/16 07:15 INR, PTT INR 1.06 (0.82-1.09) 08/25/16 16:06 Assessment/Plan Continue same trt
[2016-08-28] MEDS ORDERED: PT OWN MED DRAWER 7, Y5N ONE ×2 (09:02→20:53)
[2016-08-28] MEDS: CLOPIDOGREL BISULFATE 75 MG TABLET (FP) PO SCH (10:13)
[2016-08-28] MEDS: FUROSEMIDE 40 MG TABLET (FP) PO SCH (10:13)
[2016-08-28] MEDS: TIOTROPIUM BROMIDE 18 MCG/INH (DEVICE W/ 5 CAPSULES) IH SCH (10:14)
[2016-08-28] MEDS: cefTRIAXone 1 GM/50 ML BAG (PRE-DOCKED) IVPB SCH (10:14)
[2016-08-28] MEDS: ROFLUMILAST 500 MCG TABLET PO SCH (10:15)
[2016-08-28] MEDS: BUDESONIDE/FORMETEROL FUMARATE 80/4.5 mcg INHALER IH SCH ×2 (10:15→20:59)
--- NOTE | 2016-08-28 12:51 | PN ---
Teaching Attending Note Name of Resident: Monique Rhoades ATTENDING PHYSICIAN STATEMENT I saw and evaluated the patient. I reviewed the resident's note and discussed the case with the resident. I agree with the resident's findings and plan as documented. PULMONARY alert,less dyspneic,+cough IMP ACUTE ON CHRONIC HYPOXEMIC/HYPERCAPNEC RESPIRATORY FAILURE COPD EXACERBATION ASHD /P CABG,STENTS HTN HLD PLAN CONTINUE IV STEROIDS SAME DOSE INHALED BRONCHODILATORS O2 BIPAP IF PT DEVELOPES INCREASED RESPIRATORY DISTRESS,HYPERCAPNEA ANTIBIOTICS DALIRESP DR GONZALEZ Problem List - Problems (1) Acute on chronic respiratory failure with hypoxia and hypercapnia Code(s): J96.21 - ACUTE AND CHRONIC RESPIRATORY FAILURE WITH HYPOXIA J96.22 - ACUTE AND CHRONIC RESPIRATORY FAILURE WITH HYPERCAPNIA (2) COPD exacerbation Code(s): J44.1 - CHRONIC OBSTRUCTIVE PULMONARY DISEASE W (ACUTE) EXACERBATION (3) Cough Code(s): R05 - COUGH (4) Anxiety Code(s): F41.9 - ANXIETY DISORDER, UNSPECIFIED (5) CAD (coronary artery disease) Code(s): I25.10 - ATHSCL HEART DISEASE OF [place] CORONARY ARTERY W/O ANG PCTRS Qualifiers: Coronary Disease-Associated Artery/Lesion type: [place] artery [place] vs. transplanted heart: [place] heart Associated angina: without angina Qualified Code(s): I25.10 - Atherosclerotic heart disease of [place] coronary artery without angina pectoris (6) COPD (chronic obstructive pulmonary disease) Code(s): J44.9 - CHRONIC OBSTRUCTIVE PULMONARY DISEASE, UNSPECIFIED (7) HTN (hypertension) Code(s): I10 - ESSENTIAL (PRIMARY) HYPERTENSION Qualifiers: Hypertension type: essential hypertension Qualified Code(s): I10 - Essential (primary) hypertension (8) History of coronary artery bypass graft Code(s): Z95.1 - PRESENCE OF AORTOCORONARY BYPASS GRAFT Problem List - Problems (1) Acute on chronic respiratory failure with hypoxia and hypercapnia Code(s): J96.21 - ACUTE AND CHRONIC RESPIRATORY FAILURE WITH HYPOXIA J96.22 - ACUTE AND CHRONIC RESPIRATORY FAILURE WITH HYPERCAPNIA (2) COPD exacerbation Code(s): J44.1 - CHRONIC OBSTRUCTIVE PULMONARY DISEASE W (ACUTE) EXACERBATION (3) Cough Code(s): R05 - COUGH (4) Anxiety Code(s): F41.9 - ANXIETY DISORDER, UNSPECIFIED (5) CAD (coronary artery disease) Code(s): I25.10 - ATHSCL HEART DISEASE OF [place] CORONARY ARTERY W/O ANG PCTRS Qualifiers: Coronary Disease-Associated Artery/Lesion type: [place] artery [place] vs. transplanted heart: [place] heart Associated angina: without angina Qualified Code(s): I25.10 - Atherosclerotic heart disease of [place] coronary artery without angina pectoris (6) COPD (chronic obstructive pulmonary disease) Code(s): J44.9 - CHRONIC OBSTRUCTIVE PULMONARY DISEASE, UNSPECIFIED (7) HTN (hypertension) Code(s): I10 - ESSENTIAL (PRIMARY) HYPERTENSION Qualifiers: Hypertension type: essential hypertension Qualified Code(s): I10 - Essential (primary) hypertension (8) History of coronary artery bypass graft Code(s): Z95.1 - PRESENCE OF AORTOCORONARY BYPASS GRAFT
--- NOTE | 2016-08-28 15:57 | PN ---
Physical Exam: SUBJECTIVE: Patient seen and examined Patient resting in bed comfortably NAD. No acute events. afebrile and hemodynamically stable. 97% on 3 L. States he feels a little less sob and less cough. clearer sputum. 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 Denies f/c, chest pain, abd pain, n/v, h/a, diarrhea, dysuria. OBJECTIVE: Vital Signs Period Temp Pulse Resp BP Sys/Ellison Pulse Ox Last 24 Hr 97.9 F-98.3 F 84-121 16-22 124-140/74-89 93-98 GENERAL: Awake, alert, and fully oriented, in no acute distress. HEAD: Normal with no signs of trauma. EYES: Pupils equal, round and reactive to light, extraocular movements intact, sclera anicteric, conjunctiva clear. EARS, NOSE, THROAT: Moist mucous membranes. NECK: supple without JVD LUNGS: slightly improved air movement, diffuse wheezes HEART: Regular rate and rhythm, normal S1 and S2 ABDOMEN: Soft, nontender, not distended, normoactive bowel sounds MUSCULOSKELETAL: No CVA tenderness. UPPER EXTREMITIES: No peripheral edema. LOWER EXTREMITIES: No peripheral edema. NEUROLOGICAL: Cranial nerves II-XII grossly intact. Normal speech. PSYCHIATRIC: Cooperative. Good eye contact. Appropriate mood and affect. SKIN: Warm, dry Active Medications Generic Name Dose Route Start Last Admin Trade Name Freq PRN Reason Stop Dose Admin Acetaminophen 650 mg 08/25/16 21:11 08/26/16 10:40 Tylenol - PO 650 mg Q6H PRN Administration FEVER OR PAIN Albuterol Sulfate 1 amp 08/26/16 14:03 08/28/16 14:00 Ventolin 0.083% Nebulizer Soln - NEB 1 amp Q4H PRN Administration SHORT OF BREATH/WHEEZING Alprazolam 0.5 mg 08/25/16 21:13 08/27/16 20:45 Xanax - PO 0.5 mg HS PRN Administration Alprazolam 0.5 mg 08/28/16 15:48 Xanax - PO TID PRN ANXIETY Budesonide/Formoterol Fumarate 1 puff 08/25/16 22:00 08/28/16 10:15 Symbicort 80/4.5mcg - IH 1 inh BID [facility] Administration Clopidogrel Bisulfate 75 mg 08/26/16 10:00 08/28/16 10:13 Plavix - PO 75 mg DAILY [facility] Administration Furosemide 40 mg 08/26/16 10:00 08/28/16 10:13 Lasix - PO 40 mg DAILY [facility] Administration Methylprednisolone Sodium Succinate 60 mg 08/26/16 15:00 08/28/16 15:26 Solu-Medrol - IVPB 60 mg Q6H-IV [facility] Administration Roflumilast 500 mcg 08/26/16 14:15 08/28/16 10:15 Daliresp - PO 500 mcg DAILY [facility] Administration Tiotropium [place] 1 puff 08/26/16 14:15 08/28/16 10:14 Spiriva - IH 1 pfu DAILY [facility] Administration ASSESSMENT/PLAN: 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 Thank you for this consultative opportunity. Problem List - Problems (1) Acute on chronic respiratory failure with hypoxemia Code(s): J96.21 - ACUTE AND CHRONIC RESPIRATORY FAILURE WITH HYPOXIA (2) Acute on chronic respiratory failure with hypoxia and hypercapnia Code(s): J96.21 - ACUTE AND CHRONIC RESPIRATORY FAILURE WITH HYPOXIA J96.22 - ACUTE AND CHRONIC RESPIRATORY FAILURE WITH HYPERCAPNIA (3) COPD exacerbation Code(s): J44.1 - CHRONIC OBSTRUCTIVE PULMONARY DISEASE W (ACUTE) EXACERBATION (4) Cough Code(s): R05 - COUGH (5) Abnormal LFTs Code(s): R79.89 - OTHER SPECIFIED ABNORMAL FINDINGS OF BLOOD CHEMISTRY (6) Anxiety Code(s): F41.9 - ANXIETY DISORDER, UNSPECIFIED (7) CAD (coronary artery disease) Code(s): I25.10 - ATHSCL HEART DISEASE OF [place] CORONARY ARTERY W/O ANG PCTRS Qualifiers: Coronary Disease-Associated Artery/Lesion type: [place] artery [place] vs. transplanted heart: [place] heart Associated angina: without angina Qualified Code(s): I25.10 - Atherosclerotic heart disease of [place] coronary artery without angina pectoris (8) COPD (chronic obstructive pulmonary disease) Code(s): J44.9 - CHRONIC OBSTRUCTIVE PULMONARY DISEASE, UNSPECIFIED (9) HTN (hypertension) Code(s): I10 - ESSENTIAL (PRIMARY) HYPERTENSION Qualifiers: Hypertension type: essential hypertension Qualified Code(s): I10 - Essential (primary) hypertension (10) History of coronary artery bypass graft Code(s): Z95.1 - PRESENCE OF AORTOCORONARY BYPASS GRAFT (11) History of percutaneous coronary intervention Code(s): Z98.89 - OTHER SPECIFIED POSTPROCEDURAL STATES * DO NOT USE * (12) Hypercholesterolemia Code(s): E78.0 - PURE HYPERCHOLESTEROLEMIA * DO NOT USE * (13) Pneumonia Code(s): J18.9 - PNEUMONIA, UNSPECIFIED ORGANISM Visit type - Emergency Visit Emergency Visit: Yes ED Registration Date: 08/25/16 Care time: The patient presented to the Emergency Department on the above date and was hospitalized for further evaluation of their emergent condition. - New Patient This patient is new to me today: No - Critical Care Critical Care patient: No - Discharge Referral Referred to [facility] Med P.C.: No
[2016-08-28] MEDS: ALPRAZolam 0.25 MG TABLET PO PRN (16:00)
--- NOTE | 2016-08-28 16:26 | CON.CARD ---
Consult Consult Specialty:: Cardiology Reason for Consultation:: SOB - History of Present Illness History of Present Illness: This is a 61 yo m with PMH of COPD on 2L at home (noncompliant), past heavy smoker, asthma, CAD s/p PCI, CABG 2013, HTN, HLD, who presents due to SOB that started 4 days ago and has gotten worse. He reports increased cough productive of yellow flem, chills and diarrhea. His PCP prescribed him a Z Pack past wed, which helped loosen his respiratory secretions but didnt improve his sob. He currently feels unimproved from presentation. He is able to ambulate to bathroom on 2 L O2. He denies f/c, n/v, chest pain, abd pain, h/a, rhinorrhea or throat pain. Denies sick contacts. 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 CABG SVG to RCA 2013 Dr. Medrano Medical History Reviewed Condition Date Treating Physician Comments Abnormal stress test showing inferior wall ischemia April 09, 2014 [facility] CAD- Stent o RCA 2007 [facility] COPD QUALITY RN oRCA prior stent site, o/w nonobstructive ds 2013 Dr. Nava [facility] Rheumatoid Arthritis unsucesfull QUALITY RN attempt 2013 [facility] - History Source History Provided By: Patient, Medical Record - Past Medical History Cardio/Vascular: Yes: CAD, HTN, Hyperlipdemia Pulmonary: Yes: COPD - Past Surgical History Past Surgical History: Yes: CABG, Stent - Alcohol/Substance Use Hx Alcohol Use: No - Smoking History Smoking history: Former smoker Have you smoked in the past 12 months: No Aproximately how many cigarettes per day: 0 If you are a former smoker, when did you quit?: 2 years Home Medications - Allergies Allergies/Adverse Reactions: Allergies Allergy/AdvReac Type Severity Reaction Status Date / Time Penicillins Allergy Severe Rash Verified 08/25/16 15:32 seafood Allergy Severe Rash Uncoded 08/25/16 15:32 - Home Medications Home Medications: Ambulatory Orders Acetaminophen [Tylenol .Regular Strength -] 650 mg PO Q6H PRN #0 tablet Albuterol 2.5/Ipratropium 0.5 [Duoneb -] 1 amp NEB QIDR amp 05/27/16 Budesonide/Formeterol Fumarate [SYMBICORT 80/4.5mcg -] 1 puff IH BID inhaler Clopidogrel Bisulfate [Plavix -] 75 mg PO DAILY tablet 05/27/16 Furosemide [Lasix -] 40 mg PO DAILY tablet 05/27/16 Metoprolol Tartrate [Lopressor -] 25 mg PO DAILY 08/25/16 Prednisone [Deltasone -] 10 mg PO DAILY 08/25/16 Family Disease History - Family Disease History Family Disease History: Other: Brother (Lupus) Review of Systems - Review of Systems Constitutional: reports: No Symptoms Eyes: reports: No Symptoms HENT: reports: No Symptoms Neck: reports: No Symptoms Cardiovascular: reports: No Symptoms Respiratory: reports: SOB Gastrointestinal: reports: No Symptoms Genitourinary: reports: No Symptoms Breasts: reports: No Symptoms Reported Musculoskeletal: reports: No Symptoms Integumentary: reports: No Symptoms Neurological: reports: No Symptoms Endocrine: reports: No Symptoms Hematology/Lymphatic: reports: No Symptoms Psychiatric: reports: No Symptoms Vital Signs: Vital Signs Temperature 97.9 F 08/28/16 14:57 Pulse Rate 121 H 08/28/16 14:57 Respiratory Rate 22 08/28/16 14:57 Blood Pressure 140/74 08/28/16 14:57 O2 Sat by Pulse Oximetry (%) 93 L 08/28/16 10:05 Constitutional: Yes: Well Nourished, No Distress, Calm Eyes: Yes: WNL, Conjunctiva Clear, EOM Intact HENT: Yes: WNL, Atraumatic, Normocephalic Neck: Yes: WNL, Supple, Trachea Midline Respiratory: Yes: Diminished, SOB, Wheezes Gastrointestinal: Yes: WNL, Normal Bowel Sounds Renal/: Yes: WNL Cardiovascular: Yes: WNL, Regular Rate and Rhythm Musculoskeletal: Yes: WNL Extremities: Yes: WNL Integumentary: Yes: WNL Neurological: Yes: WNL, Alert, Oriented ...Motor Strength: WNL Psychiatric: Yes: WNL, Alert, Oriented - Other Data Labs, Other Data: CBC, BMP 08/26/16 07:15 08/26/16 07:15 INR, PTT INR 1.06 (0.82-1.09) 08/25/16 16:06 Laboratory Tests 08/25/16 08/25/16 08/25/16 16:06 16:06 16:06 WBC 11.2 H D RBC 4.66 Hgb 13.2 D Hct 39.6 MCV 85.1 MCHC 33.3 RDW 15.2 D Plt Count 385 MPV 7.6 Neutrophils % 83.7 H Lymphocytes % 10.2 D Monocytes % 5.8 Eosinophils % 0.0 Basophils % 0.3 INR 1.06 PTT (Actin FS) 32.0 VBG pH POC VBG pCO2 POC VBG pO2 Mixed VBG HCO3 Sodium Potassium Chloride Carbon Dioxide Anion Gap BUN Creatinine Creat Clearance w eGFR Random Glucose Lactic Acid Calcium Total Bilirubin AST ALT Alkaline Phosphatase Creatine Kinase Troponin I B-Natriuretic Peptide Total Protein Albumin Urine Color Yellow Urine Appearance Clear Urine pH 5.0 Ur Specific [place] 1.023 Urine Protein Negative Urine Glucose (UA) Negative Urine Ketones Trace H Urine Blood Negative Urine Nitrite Negative Urine Bilirubin Negative Urine Urobilinogen Negative Ur Leukocyte Esterase Negative 08/25/16 08/25/16 08/25/16 16:06 16:06 17:08 WBC RBC Hgb Hct MCV MCHC RDW Plt Count MPV Neutrophils % Lymphocytes % Monocytes % Eosinophils % Basophils % INR PTT (Actin FS) VBG pH POC VBG pCO2 POC VBG pO2 Mixed VBG HCO3 Sodium 138 Potassium 4.6 Chloride 95 L Carbon Dioxide 32 Anion Gap 11 BUN 12 D Creatinine 0.9 Creat Clearance w eGFR > 60 Random Glucose 115 H D Lactic Acid 1.392 1.541 Calcium 9.6 Total Bilirubin 0.9 D AST 20 D ALT 27 D Alkaline Phosphatase 206 H D Creatine Kinase 80 Troponin I < 0.02 D B-Natriuretic Peptide 46.19 Total Protein 8.2 D Albumin 3.8 D Urine Color Urine Appearance Urine pH Ur Specific [place] Urine Protein Urine Glucose (UA) Urine Ketones Urine Blood Urine Nitrite Urine Bilirubin Urine Urobilinogen Ur Leukocyte Esterase 08/25/16 08/26/16 08/26/16 17:15 07:15 07:15 WBC 8.4 RBC 4.35 Hgb 12.3 Hct 37.2 MCV 85.5 MCHC 33.1 RDW 14.7 Plt Count 347 MPV 7.2 L Neutrophils % Lymphocytes % Monocytes % Eosinophils % Basophils % INR PTT (Actin FS) VBG pH 7.33 POC VBG pCO2 65.7 H* D POC VBG pO2 24.9 L Mixed VBG HCO3 34.3 H Sodium 137 Potassium 4.6 Chloride 99 Carbon Dioxide 31 Anion Gap 7 L BUN 15 D Creatinine 0.8 Creat Clearance w eGFR > 60 Random Glucose 124 H Lactic Acid Calcium 9.3 Total Bilirubin 0.6 D AST 15 D ALT 20 D Alkaline Phosphatase 175 H Creatine Kinase Troponin I B-Natriuretic Peptide Total Protein 7.1 Albumin 3.2 L Urine Color Urine Appearance Urine pH Ur Specific [place] Urine Protein Urine Glucose (UA) Urine Ketones Urine Blood Urine Nitrite Urine Bilirubin Urine Urobilinogen Ur Leukocyte Esterase Imaging - Results Chest X-ray: Image Reviewed (emphysema s/p cabg) EKG: Image Reviewed (sr rep abn) Assessment/Plan ashd s/p pci s/p cabg copd chf hld Plan cont present rx check bnp cont lasix cont plavix
[2016-08-29] MEDS: methylPREDNISolone NA SUCC 125 MG/2 ML VIAL IVPB SCH ×4 (04:15→21:30)
[2016-08-29] MEDS: ALBUTEROL SO4 0.083% IH SOL 2.5 MG/3 ML VIAL.NEB. NEB PRN ×3 (05:44→22:20)
[2016-08-29] MEDS: ALPRAZolam 0.25 MG TABLET PO PRN ×3 (09:03→22:31)
[2016-08-29] MEDS: FUROSEMIDE 40 MG TABLET (FP) PO SCH (09:03)
[2016-08-29] MEDS: CLOPIDOGREL BISULFATE 75 MG TABLET (FP) PO SCH (09:03)
--- NOTE | 2016-08-29 09:03 | PN ---
Progress Note, Physician History of Present Illness: Still C/O SOB - Current Medication List Current Medications: Active Medications Acetaminophen (Tylenol -) 650 mg PO Q6H PRN PRN Reason: FEVER OR PAIN Last Admin: 08/26/16 10:40 Dose: 650 mg Albuterol Sulfate (Ventolin 0.083% Nebulizer Soln -) 1 amp NEB Q4H PRN PRN Reason: SHORT OF BREATH/WHEEZING Last Admin: 08/29/16 05:44 Dose: 1 amp Alprazolam (Xanax -) 0.5 mg PO TID PRN PRN Reason: ANXIETY Last Admin: 08/28/16 16:00 Dose: 0.5 mg Budesonide/Formoterol Fumarate (Symbicort 80/4.5mcg -) 1 puff IH BID [facility] Last Admin: 08/28/16 20:59 Dose: 1 inh Clopidogrel Bisulfate (Plavix -) 75 mg PO DAILY [facility] Last Admin: 08/28/16 10:13 Dose: 75 mg Furosemide (Lasix -) 40 mg PO DAILY [facility] Last Admin: 08/28/16 10:13 Dose: 40 mg Methylprednisolone Sodium Succinate (Solu-Medrol -) 60 mg IVPB Q6H-IV [facility] Last Admin: 08/29/16 04:15 Dose: 60 mg Roflumilast (Daliresp -) 500 mcg PO DAILY [facility] Last Admin: 08/28/16 10:15 Dose: 500 mcg Tiotropium [place] (Spiriva -) 1 puff IH DAILY [facility] Last Admin: 08/28/16 10:14 Dose: 1 pfu - Objective Vital Signs: Vital Signs Temperature 97.9 F 08/29/16 06:00 Pulse Rate 105 H 08/29/16 06:00 Respiratory Rate 22 08/29/16 06:00 Blood Pressure 149/83 08/29/16 06:00 O2 Sat by Pulse Oximetry (%) 93 L 08/28/16 21:00 Constitutional: Yes: Mild Distress Eyes: Yes: WNL HENT: Yes: WNL Neck: Yes: WNL Cardiovascular: Yes: WNL Respiratory: Yes: Poor Air Entry Gastrointestinal: Yes: WNL ...Rectal Exam: Yes: Deferred Genitourinary: Yes: WNL Breast(s): Yes: WNL Musculoskeletal: Yes: WNL Extremities: Yes: WNL Edema: Yes Edema: LUE: Trace, RUE: Trace, LLE: Trace, RLE: Trace Peripheral Pulses WNL: Yes Neurological: Yes: Alert Labs: CBC, BMP 08/26/16 07:15 08/26/16 07:15 INR, PTT INR 1.06 (0.82-1.09) 08/25/16 16:06
[2016-08-29] MEDS ORDERED: PT OWN MED DRAWER 7, Y5N ONE ×2 (09:05→21:02)
[2016-08-29] MEDS: TIOTROPIUM BROMIDE 18 MCG/INH (DEVICE W/ 5 CAPSULES) IH SCH (09:10)
[2016-08-29] MEDS: BUDESONIDE/FORMETEROL FUMARATE 80/4.5 mcg INHALER IH SCH ×2 (09:10→22:31)
[2016-08-29] MEDS: ROFLUMILAST 500 MCG TABLET PO SCH (09:10)
--- NOTE | 2016-08-29 09:10 | PN ---
Progress Note, Physician History of Present Illness: This is a 61 yo m with PMH of COPD on 2L at home (noncompliant), past heavy smoker, asthma, CAD s/p PCI, CABG 2013, HTN, HLD, who presents due to SOB that started 4 days ago and has gotten worse. He reports increased cough productive of yellow flem, chills and diarrhea. His PCP prescribed him a Z Pack past wed, which helped loosen his respiratory secretions but didnt improve his sob. He currently feels unimproved from presentation. He is able to ambulate to bathroom on 2 L O2. He denies f/c, n/v, chest pain, abd pain, h/a, rhinorrhea or throat pain. Denies sick contacts. 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 CABG SVG to RCA 2013 Dr. Medrano Medical History Reviewed Condition Date Treating Physician Comments Abnormal stress test showing inferior wall ischemia April 09, 2014 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 [facility] Rheumatoid Arthritis unsucesfull MOLDER attempt 2013 [facility] - Current Medication List Current Medications: Active Medications Acetaminophen (Tylenol -) 650 mg PO Q6H PRN PRN Reason: FEVER OR PAIN Last Admin: 08/26/16 10:40 Dose: 650 mg Albuterol Sulfate (Ventolin 0.083% Nebulizer Soln -) 1 amp NEB Q4H PRN PRN Reason: SHORT OF BREATH/WHEEZING Last Admin: 08/29/16 05:44 Dose: 1 amp Alprazolam (Xanax -) 0.5 mg PO TID PRN PRN Reason: ANXIETY Last Admin: 08/28/16 16:00 Dose: 0.5 mg Budesonide/Formoterol Fumarate (Symbicort 80/4.5mcg -) 1 puff IH BID [facility] Last Admin: 08/28/16 20:59 Dose: 1 inh Clopidogrel Bisulfate (Plavix -) 75 mg PO DAILY [facility] Last Admin: 08/28/16 10:13 Dose: 75 mg Furosemide (Lasix -) 40 mg PO DAILY [facility] Last Admin: 08/28/16 10:13 Dose: 40 mg Methylprednisolone Sodium Succinate (Solu-Medrol -) 60 mg IVPB Q6H-IV [facility] Last Admin: 08/29/16 04:15 Dose: 60 mg Roflumilast (Daliresp -) 500 mcg PO DAILY [facility] Last Admin: 08/28/16 10:15 Dose: 500 mcg Tiotropium [place] (Spiriva -) 1 puff IH DAILY [facility] Last Admin: 08/28/16 10:14 Dose: 1 pfu - Objective Vital Signs: Vital Signs Temperature 97.9 F 08/29/16 06:00 Pulse Rate 105 H 08/29/16 06:00 Respiratory Rate 22 08/29/16 06:00 Blood Pressure 149/83 08/29/16 06:00 O2 Sat by Pulse Oximetry (%) 93 L 08/28/16 21:00 Eyes: Yes: WNL, Conjunctiva Clear, EOM Intact HENT: Yes: WNL, Atraumatic, Normocephalic Neck: Yes: WNL, Supple, Trachea Midline Cardiovascular: Yes: WNL, Regular Rate and Rhythm Respiratory: Yes: WNL, Poor Air Entry, SOB, Wheezes Gastrointestinal: Yes: WNL, Normal Bowel Sounds Genitourinary: Yes: WNL Musculoskeletal: Yes: WNL Extremities: Yes: WNL Edema: No Edema: LLE: 1+, RLE: 1+ Integumentary: Yes: WNL Neurological: Yes: WNL, Alert, Oriented ...Motor Strength: WNL Psychiatric: Yes: WNL Labs: CBC, BMP 08/26/16 07:15 08/26/16 07:15 INR, PTT INR 1.06 (0.82-1.09) 08/25/16 16:06 Assessment/Plan ashd s/p pci s/p cabg copd chf hld Plan cont present rx check bnp cont lasix cont plavix
--- NOTE | 2016-08-29 11:59 | PN ---
Progress Note, Physician History of Present Illness: pulmonary alert,less dyspneic - Current Medication List Current Medications: Active Medications Acetaminophen (Tylenol -) 650 mg PO Q6H PRN PRN Reason: FEVER OR PAIN Last Admin: 08/26/16 10:40 Dose: 650 mg Albuterol Sulfate (Ventolin 0.083% Nebulizer Soln -) 1 amp NEB Q4H PRN PRN Reason: SHORT OF BREATH/WHEEZING Last Admin: 08/29/16 05:44 Dose: 1 amp Alprazolam (Xanax -) 0.5 mg PO TID PRN PRN Reason: ANXIETY Last Admin: 08/29/16 09:03 Dose: 0.5 mg Budesonide/Formoterol Fumarate (Symbicort 80/4.5mcg -) 1 puff IH BID [facility] Last Admin: 08/29/16 09:10 Dose: 1 inh Clopidogrel Bisulfate (Plavix -) 75 mg PO DAILY [facility] Last Admin: 08/29/16 09:03 Dose: 75 mg Furosemide (Lasix -) 40 mg PO DAILY [facility] Last Admin: 08/29/16 09:03 Dose: 40 mg Methylprednisolone Sodium Succinate (Solu-Medrol -) 60 mg IVPB Q6H-IV [facility] Last Admin: 08/29/16 09:03 Dose: 60 mg Roflumilast (Daliresp -) 500 mcg PO DAILY [facility] Last Admin: 08/29/16 09:10 Dose: 500 mcg Tiotropium [place] (Spiriva -) 1 puff IH DAILY [facility] Last Admin: 08/29/16 09:10 Dose: 1 pfu - Objective Vital Signs: Vital Signs Temperature 97.7 F 08/29/16 09:00 Pulse Rate 120 H 08/29/16 09:00 Respiratory Rate 22 08/29/16 09:00 Blood Pressure 145/82 08/29/16 09:00 O2 Sat by Pulse Oximetry (%) 97 08/29/16 09:00 Constitutional: Yes: Well Nourished, Calm Eyes: Yes: WNL HENT: Yes: WNL Neck: Yes: WNL Cardiovascular: Yes: Regular Rate and Rhythm, S1, S2 Respiratory: Yes: Rhonchi ([place] rhonchi) Gastrointestinal: Yes: Normal Bowel Sounds, Soft Extremities: Yes: WNL Edema: Yes Labs: CBC, BMP 08/26/16 07:15 08/26/16 07:15 INR, PTT INR 1.06 (0.82-1.09) 08/25/16 16:06 Problem List - Problems (1) Acute on chronic respiratory failure with hypoxia and hypercapnia Code(s): J96.21 - ACUTE AND CHRONIC RESPIRATORY FAILURE WITH HYPOXIA J96.22 - ACUTE AND CHRONIC RESPIRATORY FAILURE WITH HYPERCAPNIA (2) COPD exacerbation Code(s): J44.1 - CHRONIC OBSTRUCTIVE PULMONARY DISEASE W (ACUTE) EXACERBATION (3) Cough Code(s): R05 - COUGH (4) Anxiety Code(s): F41.9 - ANXIETY DISORDER, UNSPECIFIED (5) CAD (coronary artery disease) Code(s): I25.10 - ATHSCL HEART DISEASE OF [place] CORONARY ARTERY W/O ANG PCTRS Qualifiers: Coronary Disease-Associated Artery/Lesion type: [place] artery [place] vs. transplanted heart: [place] heart Associated angina: without angina Qualified Code(s): I25.10 - Atherosclerotic heart disease of [place] coronary artery without angina pectoris (6) COPD (chronic obstructive pulmonary disease) Code(s): J44.9 - CHRONIC OBSTRUCTIVE PULMONARY DISEASE, UNSPECIFIED (7) HTN (hypertension) Code(s): I10 - ESSENTIAL (PRIMARY) HYPERTENSION Qualifiers: Hypertension type: essential hypertension Qualified Code(s): I10 - Essential (primary) hypertension (8) History of coronary artery bypass graft Code(s): Z95.1 - PRESENCE OF AORTOCORONARY BYPASS GRAFT Assessment/Plan IMP ACUTE ON CHRONIC HYPOXEMIC/HYPERCAPNEC RESPIRATORY FAILURE COPD EXACERBATION ASHD /P CABG,STENTS HTN HLD PLAN CONTINUE IV STEROIDS INHALED BRONCHODILATORS O2 BIPAP IF PT DEVELOPES INCREASED RESPIRATORY DISTRESS,HYPERCAPNEA ANTIBIOTICS DALIRESP DR GONZALEZ Problem List - Problems (1) Acute on chronic respiratory failure with hypoxia and hypercapnia Code(s): J96.21 - ACUTE AND CHRONIC RESPIRATORY FAILURE WITH HYPOXIA J96.22 - ACUTE AND CHRONIC RESPIRATORY FAILURE WITH HYPERCAPNIA (2) COPD exacerbation Code(s): J44.1 - CHRONIC OBSTRUCTIVE PULMONARY DISEASE W (ACUTE) EXACERBATION (3) Cough Code(s): R05 - COUGH (4) Anxiety Code(s): F41.9 - ANXIETY DISORDER, UNSPECIFIED (5) CAD (coronary artery disease) Code(s): I25.10 - ATHSCL HEART DISEASE OF [place] CORONARY ARTERY W/O ANG PCTRS Qualifiers: Coronary Disease-Associated Artery/Lesion type: [place] artery [place] vs. transplanted heart: [place] heart Associated angina: without angina Qualified Code(s): I25.10 - Atherosclerotic heart disease of [place] coronary artery without angina pectoris (6) COPD (chronic obstructive pulmonary disease) Code(s): J44.9 - CHRONIC OBSTRUCTIVE PULMONARY DISEASE, UNSPECIFIED (7) HTN (hypertension) Code(s): I10 - ESSENTIAL (PRIMARY) HYPERTENSION Qualifiers: Hypertension type: essential hypertension Qualified Code(s): I10 - Essential (primary) hypertension (8) History of coronary artery bypass graft Code(s): Z95.1 - PRESENCE OF AORTOCORONARY BYPASS GRAFT
[2016-08-30] MEDS: methylPREDNISolone NA SUCC 125 MG/2 ML VIAL IVPB SCH ×2 (02:26→09:07)
[2016-08-30] MEDS ORDERED: PT OWN MED DRAWER 7, Y5N ONE ×2 (08:53→21:00)
[2016-08-30] MEDS: FUROSEMIDE 40 MG TABLET (FP) PO SCH (09:06)
[2016-08-30] MEDS: ROFLUMILAST 500 MCG TABLET PO SCH (09:07)
[2016-08-30] MEDS: CLOPIDOGREL BISULFATE 75 MG TABLET (FP) PO SCH (09:07)
[2016-08-30] MEDS: TIOTROPIUM BROMIDE 18 MCG/INH (DEVICE W/ 5 CAPSULES) IH SCH (09:07)
[2016-08-30] MEDS: BUDESONIDE/FORMETEROL FUMARATE 80/4.5 mcg INHALER IH SCH ×2 (09:08→21:44)
--- NOTE | 2016-08-30 09:31 | PN ---
Progress Note, Physician History of Present Illness: This is a 61 yo m with PMH of COPD on 2L at home (noncompliant), past heavy smoker, asthma, CAD s/p PCI, CABG 2013, HTN, HLD, who presents due to SOB that started 4 days ago and has gotten worse. He reports increased cough productive of yellow flem, chills and diarrhea. His PCP prescribed him a Z Pack past wed, which helped loosen his respiratory secretions but didnt improve his sob. He currently feels unimproved from presentation. He is able to ambulate to bathroom on 2 L O2. He denies f/c, n/v, chest pain, abd pain, h/a, rhinorrhea or throat pain. Denies sick contacts. 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 CABG SVG to RCA 2013 Dr. 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 Nava [facility] Rheumatoid Arthritis unsucesfull AUTOMOTIVE PARTS COORDINATOR attempt 2013 [facility] - Current Medication List Current Medications: Active Medications Acetaminophen (Tylenol -) 650 mg PO Q6H PRN PRN Reason: FEVER OR PAIN Last Admin: 08/26/16 10:40 Dose: 650 mg Albuterol Sulfate (Ventolin 0.083% Nebulizer Soln -) 1 amp NEB Q4H PRN PRN Reason: SHORT OF BREATH/WHEEZING Last Admin: 08/29/16 22:20 Dose: 1 amp Alprazolam (Xanax -) 0.5 mg PO TID PRN PRN Reason: ANXIETY Last Admin: 08/29/16 22:31 Dose: 0.5 mg Budesonide/Formoterol Fumarate (Symbicort 80/4.5mcg -) 1 puff IH BID [facility] Last Admin: 08/30/16 09:08 Dose: 1 inh Clopidogrel Bisulfate (Plavix -) 75 mg PO DAILY [facility] Last Admin: 08/30/16 09:07 Dose: 75 mg Furosemide (Lasix -) 40 mg PO DAILY [facility] Last Admin: 08/30/16 09:06 Dose: 40 mg Methylprednisolone Sodium Succinate (Solu-Medrol -) 60 mg IVPB Q6H-IV [facility] Last Admin: 08/30/16 09:07 Dose: 60 mg Roflumilast (Daliresp -) 500 mcg PO DAILY [facility] Last Admin: 08/30/16 09:07 Dose: 500 mcg Tiotropium [place] (Spiriva -) 1 puff IH DAILY [facility] Last Admin: 08/30/16 09:07 Dose: 1 pfu - Objective Vital Signs: Vital Signs Temperature 97.6 F 08/30/16 09:16 Pulse Rate 108 H 08/30/16 09:16 Respiratory Rate 24 08/30/16 09:16 Blood Pressure 120/90 08/30/16 09:16 O2 Sat by Pulse Oximetry (%) 100 08/29/16 21:00 Eyes: Yes: WNL, Conjunctiva Clear, EOM Intact HENT: Yes: WNL, Atraumatic, Normocephalic Neck: Yes: WNL, Supple, Trachea Midline Cardiovascular: Yes: WNL, Regular Rate and Rhythm Respiratory: Yes: WNL, Regular, CTA Bilaterally Gastrointestinal: Yes: WNL, Normal Bowel Sounds Genitourinary: Yes: WNL Musculoskeletal: Yes: WNL Extremities: Yes: WNL Edema: No Integumentary: Yes: WNL Neurological: Yes: WNL, Alert, Oriented ...Motor Strength: WNL Psychiatric: Yes: WNL Labs: CBC, BMP 08/26/16 07:15 08/26/16 07:15 INR, PTT INR 1.06 (0.82-1.09) 08/25/16 16:06
--- NOTE | 2016-08-30 12:43 | PN ---
Progress Note, Physician History of Present Illness: PULMONARY ALERT,LESS CONGESTED,STILL VERY DYSPNEIC WITH MIN EXERTION - Current Medication List Current Medications: Active Medications Acetaminophen (Tylenol -) 650 mg PO Q6H PRN PRN Reason: FEVER OR PAIN Last Admin: 08/26/16 10:40 Dose: 650 mg Albuterol Sulfate (Ventolin 0.083% Nebulizer Soln -) 1 amp NEB Q4H PRN PRN Reason: SHORT OF BREATH/WHEEZING Last Admin: 08/29/16 22:20 Dose: 1 amp Alprazolam (Xanax -) 0.5 mg PO TID PRN PRN Reason: ANXIETY Last Admin: 08/29/16 22:31 Dose: 0.5 mg Budesonide/Formoterol Fumarate (Symbicort 80/4.5mcg -) 1 puff IH BID [facility] Last Admin: 08/30/16 09:08 Dose: 1 inh Clopidogrel Bisulfate (Plavix -) 75 mg PO DAILY [facility] Last Admin: 08/30/16 09:07 Dose: 75 mg Furosemide (Lasix -) 40 mg PO DAILY [facility] Last Admin: 08/30/16 09:06 Dose: 40 mg Methylprednisolone Sodium Succinate (Solu-Medrol -) 60 mg IVPB Q6H-IV [facility] Last Admin: 08/30/16 09:07 Dose: 60 mg Roflumilast (Daliresp -) 500 mcg PO DAILY [facility] Last Admin: 08/30/16 09:07 Dose: 500 mcg Tiotropium [place] (Spiriva -) 1 puff IH DAILY [facility] Last Admin: 08/30/16 09:07 Dose: 1 pfu - Objective Vital Signs: Vital Signs Temperature 97.6 F 08/30/16 09:16 Pulse Rate 108 H 08/30/16 09:16 Respiratory Rate 24 08/30/16 09:16 Blood Pressure 120/90 08/30/16 09:16 O2 Sat by Pulse Oximetry (%) 95 08/30/16 09:00 Constitutional: Yes: Well Nourished, Calm Eyes: Yes: WNL HENT: Yes: WNL Neck: Yes: WNL Cardiovascular: Yes: Regular Rate and Rhythm, S1, S2 Respiratory: Yes: Rhonchi (ELIUD RHONCHI) Gastrointestinal: Yes: Normal Bowel Sounds, Soft Extremities: Yes: WNL Edema: Yes Labs: CBC, BMP Problem List - Problems (1) Acute on chronic respiratory failure with hypoxia and hypercapnia Code(s): J96.21 - ACUTE AND CHRONIC RESPIRATORY FAILURE WITH HYPOXIA J96.22 - ACUTE AND CHRONIC RESPIRATORY FAILURE WITH HYPERCAPNIA (2) COPD exacerbation Code(s): J44.1 - CHRONIC OBSTRUCTIVE PULMONARY DISEASE W (ACUTE) EXACERBATION (3) Cough Code(s): R05 - COUGH (4) Anxiety Code(s): F41.9 - ANXIETY DISORDER, UNSPECIFIED (5) CAD (coronary artery disease) Code(s): I25.10 - ATHSCL HEART DISEASE OF [place] CORONARY ARTERY W/O ANG PCTRS Qualifiers: Coronary Disease-Associated Artery/Lesion type: [place] artery [place] vs. transplanted heart: [place] heart Associated angina: without angina Qualified Code(s): I25.10 - Atherosclerotic heart disease of [place] coronary artery without angina pectoris (6) COPD (chronic obstructive pulmonary disease) Code(s): J44.9 - CHRONIC OBSTRUCTIVE PULMONARY DISEASE, UNSPECIFIED (7) HTN (hypertension) Code(s): I10 - ESSENTIAL (PRIMARY) HYPERTENSION Qualifiers: Hypertension type: essential hypertension Qualified Code(s): I10 - Essential (primary) hypertension (8) History of coronary artery bypass graft Code(s): Z95.1 - PRESENCE OF AORTOCORONARY BYPASS GRAFT Assessment/Plan IMP ACUTE ON CHRONIC HYPOXEMIC/HYPERCAPNEC RESPIRATORY FAILURE COPD EXACERBATION ASHD /P CABG,STENTS HTN HLD PLAN TAPER STEROIDS INHALED BRONCHODILATORS O2 BIPAP IF PT DEVELOPES INCREASED RESPIRATORY DISTRESS,HYPERCAPNEA ONEYDA GONZALEZ Problem List - Problems (1) Acute on chronic respiratory failure with hypoxia and hypercapnia Code(s): J96.21 - ACUTE AND CHRONIC RESPIRATORY FAILURE WITH HYPOXIA J96.22 - ACUTE AND CHRONIC RESPIRATORY FAILURE WITH HYPERCAPNIA (2) COPD exacerbation Code(s): J44.1 - CHRONIC OBSTRUCTIVE PULMONARY DISEASE W (ACUTE) EXACERBATION (3) Cough Code(s): R05 - COUGH (4) Anxiety Code(s): F41.9 - ANXIETY DISORDER, UNSPECIFIED (5) CAD (coronary artery disease) Code(s): I25.10 - ATHSCL HEART DISEASE OF [place] CORONARY ARTERY W/O ANG PCTRS Qualifiers: Coronary Disease-Associated Artery/Lesion type: [place] artery [place] vs. transplanted heart: [place] heart Associated angina: without angina Qualified Code(s): I25.10 - Atherosclerotic heart disease of [place] coronary artery without angina pectoris (6) COPD (chronic obstructive pulmonary disease) Code(s): J44.9 - CHRONIC OBSTRUCTIVE PULMONARY DISEASE, UNSPECIFIED (7) HTN (hypertension) Code(s): I10 - ESSENTIAL (PRIMARY) HYPERTENSION Qualifiers: Hypertension type: essential hypertension Qualified Code(s): I10 - Essential (primary) hypertension (8) History of coronary artery bypass graft Code(s): Z95.1 - PRESENCE OF AORTOCORONARY BYPASS GRAFT
[2016-08-30] MEDS: ALBUTEROL SO4 0.083% IH SOL 2.5 MG/3 ML VIAL.NEB. NEB PRN (13:20)
--- NOTE | 2016-08-30 13:33 | PN ---
Progress Note, Physician Chief Complaint: SOB History of Present Illness: Case discussed with Dr Neves ,patient may need pulmonery rehab - Current Medication List Current Medications: Active Medications Acetaminophen (Tylenol -) 650 mg PO Q6H PRN PRN Reason: FEVER OR PAIN Last Admin: 08/26/16 10:40 Dose: 650 mg Albuterol Sulfate (Ventolin 0.083% Nebulizer Soln -) 1 amp NEB Q4H PRN PRN Reason: SHORT OF BREATH/WHEEZING Last Admin: 08/29/16 22:20 Dose: 1 amp Alprazolam (Xanax -) 0.5 mg PO TID PRN PRN Reason: ANXIETY Last Admin: 08/29/16 22:31 Dose: 0.5 mg Budesonide/Formoterol Fumarate (Symbicort 80/4.5mcg -) 1 puff IH BID [facility] Last Admin: 08/30/16 09:08 Dose: 1 inh Clopidogrel Bisulfate (Plavix -) 75 mg PO DAILY [facility] Last Admin: 08/30/16 09:07 Dose: 75 mg Furosemide (Lasix -) 40 mg PO DAILY [facility] Last Admin: 08/30/16 09:06 Dose: 40 mg Levofloxacin (Levaquin 500 Mg Premixed Ivpb -) 100 mls @ 100 mls/hr IVPB DAILY [facility] Methylprednisolone Sodium Succinate (Solu-Medrol -) 40 mg IVPB Q8H-IV [facility] Roflumilast (Daliresp -) 500 mcg PO DAILY [facility] Last Admin: 08/30/16 09:07 Dose: 500 mcg Tiotropium [place] (Spiriva -) 1 puff IH DAILY [facility] Last Admin: 08/30/16 09:07 Dose: 1 pfu - Objective Vital Signs: Vital Signs Temperature 97.6 F 08/30/16 09:16 Pulse Rate 108 H 08/30/16 09:16 Respiratory Rate 24 08/30/16 09:16 Blood Pressure 120/90 08/30/16 09:16 O2 Sat by Pulse Oximetry (%) 95 08/30/16 09:00 Constitutional: Yes: Mild Distress, Pallor HENT: Yes: WNL Neck: Yes: WNL Cardiovascular: Yes: WNL Respiratory: Yes: On Nasal O2 Gastrointestinal: Yes: WNL ...Rectal Exam: Yes: Deferred Genitourinary: Yes: WNL Edema: LLE: 1+, RLE: 1+ Labs: CBC, BMP 08/26/16 07:15 08/26/16 07:15 INR, PTT INR 1.06 (0.82-1.09) 08/25/16 16:06 Assessment/Plan Continue same trt
[2016-08-30] MEDS: methylPREDNISolone NA SUCC 40 MG/1 ML VIAL IVPB SCH ×3 (14:49→17:37)
[2016-08-30] MEDS: ALPRAZolam 0.25 MG TABLET PO PRN ×2 (14:51→21:44)
[2016-08-30] MEDS: LEVOFLOXACIN 500 MG IVPB 100 ML IVPB SCH (14:55)
[2016-08-31] MEDS: methylPREDNISolone NA SUCC 40 MG/1 ML VIAL IVPB SCH (01:55)
--- NOTE | 2016-08-31 09:37 | PN ---
Progress Note, Physician Chief Complaint: SOB persists History of Present Illness: COPD and ASHD Feels little better needs pulmonary rehab - Current Medication List Current Medications: Active Medications Acetaminophen (Tylenol -) 650 mg PO Q6H PRN PRN Reason: FEVER OR PAIN Last Admin: 08/26/16 10:40 Dose: 650 mg Albuterol Sulfate (Ventolin 0.083% Nebulizer Soln -) 1 amp NEB Q4H PRN PRN Reason: SHORT OF BREATH/WHEEZING Last Admin: 08/30/16 13:20 Dose: 1 amp Alprazolam (Xanax -) 0.5 mg PO TID PRN PRN Reason: ANXIETY Last Admin: 08/30/16 21:44 Dose: 0.5 mg Budesonide/Formoterol Fumarate (Symbicort 80/4.5mcg -) 1 puff IH BID [facility] Last Admin: 08/30/16 21:44 Dose: 1 inh Clopidogrel Bisulfate (Plavix -) 75 mg PO DAILY [facility] Last Admin: 08/30/16 09:07 Dose: 75 mg Furosemide (Lasix -) 40 mg PO DAILY [facility] Last Admin: 08/30/16 09:06 Dose: 40 mg Levofloxacin (Levaquin 500 Mg Premixed Ivpb -) 100 mls @ 100 mls/hr IVPB DAILY [facility] Last Admin: 08/30/16 14:55 Dose: 100 mls/hr Methylprednisolone Sodium Succinate (Solu-Medrol -) 40 mg IVPB Q8H-IV [facility] Last Admin: 08/31/16 01:55 Dose: 40 mg Roflumilast (Daliresp -) 500 mcg PO DAILY [facility] Last Admin: 08/30/16 09:07 Dose: 500 mcg Tiotropium [place] (Spiriva -) 1 puff IH DAILY [facility] Last Admin: 08/30/16 09:07 Dose: 1 pfu - Objective Vital Signs: Vital Signs Temperature 97.8 F 08/31/16 06:00 Pulse Rate 115 H 08/31/16 06:00 Respiratory Rate 22 08/31/16 06:00 Blood Pressure 135/89 08/31/16 06:00 O2 Sat by Pulse Oximetry (%) 99 08/30/16 21:00 Constitutional: Yes: Anxious Eyes: Yes: WNL HENT: Yes: WNL Neck: Yes: WNL Cardiovascular: Yes: WNL Respiratory: Yes: On Nasal O2, Poor Air Entry Gastrointestinal: Yes: WNL ...Rectal Exam: Yes: Deferred Genitourinary: Yes: WNL Musculoskeletal: Yes: WNL Edema: LLE: Trace, RLE: Trace Integumentary: Yes: WNL Neurological: Yes: Alert ...Motor Strength: WNL Labs: CBC, BMP 08/26/16 07:15 08/26/16 07:15 INR, PTT INR 1.06 (0.82-1.09) 08/25/16 16:06 Assessment/Plan Short term pulmonary rehab
[2016-08-31] MEDS: BUDESONIDE/FORMETEROL FUMARATE 80/4.5 mcg INHALER IH SCH ×2 (10:10→21:26)
[2016-08-31] MEDS: CLOPIDOGREL BISULFATE 75 MG TABLET (FP) PO SCH (10:11)
[2016-08-31] MEDS: FUROSEMIDE 40 MG TABLET (FP) PO SCH (10:11)
[2016-08-31] MEDS: ROFLUMILAST 500 MCG TABLET PO SCH (10:12)
[2016-08-31] MEDS: TIOTROPIUM BROMIDE 18 MCG/INH (DEVICE W/ 5 CAPSULES) IH SCH (10:20)
[2016-08-31] MEDS: ALPRAZolam 0.25 MG TABLET PO PRN ×2 (10:28→21:26)
[2016-08-31] MEDS: LEVOFLOXACIN 500 MG IVPB 100 ML IVPB SCH (10:28)
[2016-08-31] MEDS: predniSONE 20 MG TABLET (UD) PO SCH ×2 (10:29→21:26)
--- NOTE | 2016-08-31 10:51 | PN ---
Progress Note, Physician History of Present Illness: This is a 61 yo m with PMH of COPD on 2L at home (noncompliant), past heavy smoker, asthma, CAD s/p PCI, CABG 2013, HTN, HLD, who presents due to SOB that started 4 days ago and has gotten worse. He reports increased cough productive of yellow flem, chills and diarrhea. His PCP prescribed him a Z Pack past wed, which helped loosen his respiratory secretions but didnt improve his sob. He currently feels unimproved from presentation. He is able to ambulate to bathroom on 2 L O2. He denies f/c, n/v, chest pain, abd pain, h/a, rhinorrhea or throat pain. Denies sick contacts. 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 CABG SVG to RCA 2013 Dr. Medrano Medical History Reviewed Condition Date Treating Physician Comments Abnormal stress test showing inferior wall ischemia April 09, 2014 [facility] CAD- Stent o RCA 2007 [facility] COPD GRINDER TENDER oRCA prior stent site, o/w nonobstructive ds 2013 Dr. Nava [facility] Rheumatoid Arthritis unsucesfull GRINDER TENDER attempt 2013 [facility] - Current Medication List Current Medications: Active Medications Acetaminophen (Tylenol -) 650 mg PO Q6H PRN PRN Reason: FEVER OR PAIN Last Admin: 08/26/16 10:40 Dose: 650 mg Albuterol Sulfate (Ventolin 0.083% Nebulizer Soln -) 1 amp NEB Q4H PRN PRN Reason: SHORT OF BREATH/WHEEZING Last Admin: 08/30/16 13:20 Dose: 1 amp Alprazolam (Xanax -) 0.5 mg PO TID PRN PRN Reason: ANXIETY Last Admin: 08/31/16 10:28 Dose: 0.5 mg Budesonide/Formoterol Fumarate (Symbicort 80/4.5mcg -) 1 puff IH BID [facility] Last Admin: 08/31/16 10:10 Dose: 1 inh Clopidogrel Bisulfate (Plavix -) 75 mg PO DAILY [facility] Last Admin: 08/31/16 10:11 Dose: 75 mg Furosemide (Lasix -) 40 mg PO DAILY [facility] Last Admin: 08/31/16 10:11 Dose: 40 mg Levofloxacin (Levaquin 500 Mg Premixed Ivpb -) 100 mls @ 100 mls/hr IVPB DAILY [facility] Last Admin: 08/31/16 10:28 Dose: 100 mls/hr Prednisone (Deltasone -) 20 mg PO BID [facility] Last Admin: 08/31/16 10:29 Dose: 20 mg Roflumilast (Daliresp -) 500 mcg PO DAILY [facility] Last Admin: 08/31/16 10:12 Dose: 500 mcg Tiotropium [place] (Spiriva -) 1 puff IH DAILY [facility] Last Admin: 08/31/16 10:20 Dose: 1 pfu - Objective Vital Signs: Vital Signs Temperature 97 F L 08/31/16 10:00 Pulse Rate 118 H 08/31/16 10:00 Respiratory Rate 22 08/31/16 10:00 Blood Pressure 126/79 08/31/16 10:00 O2 Sat by Pulse Oximetry (%) 99 08/30/16 21:00 Eyes: Yes: WNL, Conjunctiva Clear, EOM Intact HENT: Yes: WNL, Atraumatic, Normocephalic Neck: Yes: WNL, Supple, Trachea Midline Cardiovascular: Yes: WNL, Regular Rate and Rhythm Respiratory: Yes: WNL, Regular, CTA Bilaterally Gastrointestinal: Yes: WNL, Normal Bowel Sounds Genitourinary: Yes: WNL Musculoskeletal: Yes: WNL Extremities: Yes: WNL Edema: No Integumentary: Yes: WNL Neurological: Yes: WNL, Alert, Oriented ...Motor Strength: WNL Psychiatric: Yes: WNL Labs: CBC, BMP 08/26/16 07:15 08/26/16 07:15 INR, PTT INR 1.06 (0.82-1.09) 08/25/16 16:06 Assessment/Plan ashd s/p pci s/p cabg copd chf hld Plan cont present rx check bnp cont lasix cont plavix
[2016-08-31] MEDS: ALBUTEROL SO4 0.083% IH SOL 2.5 MG/3 ML VIAL.NEB. NEB PRN ×2 (10:54→22:30)
--- NOTE | 2016-08-31 15:10 | PN ---
Physical Exam: SUBJECTIVE: Patient seen and examined Patient resting in bed comfortably NAD. No acute events. afebrile and hemodynamically stable. 98% on 3 L NC. States he feels a little better. Reduced cough and clearer sputum. Ambulating with O2. States he feels below his baseline 1 year ago. Denies f/c, chest pain, abd pain, n/v, h/a, diarrhea, dysuria. OBJECTIVE: Vital Signs Period Temp Pulse Resp BP Sys/Ellison Pulse Ox Last 24 Hr 97 F-97.8 F 106-120 16-22 126-136/79-95 95-99 GENERAL: Awake, alert, and fully oriented, in no acute distress. HEAD: Normal with no signs of trauma. EYES: Pupils equal, round and reactive to light, extraocular movements intact, sclera anicteric, conjunctiva clear. EARS, NOSE, THROAT: Moist mucous membranes. NECK: supple without JVD LUNGS: slightly improved air movement, no wheeze HEART: Regular rate and rhythm, normal S1 and S2 ABDOMEN: Soft, nontender, not distended, normoactive bowel sounds MUSCULOSKELETAL: No CVA tenderness. UPPER EXTREMITIES: No peripheral edema. LOWER EXTREMITIES: No peripheral edema. NEUROLOGICAL: Cranial nerves II-XII grossly intact. Normal speech. PSYCHIATRIC: Cooperative. Good eye contact. Appropriate mood and affect. SKIN: Warm, dry Active Medications Generic Name Dose Route Start Last Admin Trade Name Freq PRN Reason Stop Dose Admin Acetaminophen 650 mg 08/25/16 21:11 08/26/16 10:40 Tylenol - PO 650 mg Q6H PRN Administration FEVER OR PAIN Albuterol Sulfate 1 amp 08/26/16 14:03 08/31/16 10:54 Ventolin 0.083% Nebulizer Soln - NEB 1 amp Q4H PRN Administration SHORT OF BREATH/WHEEZING Alprazolam 0.5 mg 08/28/16 15:48 08/31/16 10:28 Xanax - PO 0.5 mg TID PRN Administration ANXIETY Budesonide/Formoterol Fumarate 1 puff 08/25/16 22:00 08/31/16 10:10 Symbicort 80/4.5mcg - IH 1 inh BID [facility] Administration Clopidogrel Bisulfate 75 mg 08/26/16 10:00 08/31/16 10:11 Plavix - PO 75 mg DAILY [facility] Administration Furosemide 40 mg 08/26/16 10:00 08/31/16 10:11 Lasix - PO 40 mg DAILY [facility] Administration Levofloxacin 100 mls @ 100 mls/hr 08/30/16 13:30 08/31/16 10:28 Levaquin 500 Mg Premixed Ivpb - IVPB 100 mls/hr DAILY [facility] Administration Prednisone 20 mg 08/31/16 10:00 08/31/16 10:29 Deltasone - PO 20 mg BID [facility] Administration Roflumilast 500 mcg 08/26/16 14:15 08/31/16 10:12 Daliresp - PO 500 mcg DAILY [facility] Administration Tiotropium [place] 1 puff 08/26/16 14:15 08/31/16 10:20 Spiriva - IH 1 pfu DAILY [facility] Administration ASSESSMENT/PLAN: Acute on chonic COPD exacerbation with hypoxemic, hypercarbic respiratory failure -possibly superimposed PNA -CXR unremarkable -noncompliant with home O2 (supposed to wear continuously) -slight clinical improvement -finishd azithromycin, rocephin -levaquin day 2 -daliresp, spiriva -symbicort, albuterol, spiriva -supplemental O2 NC, possible BIPAP if desats -will require pulmonary rehab CAD -s/p PCI, CABG -No apparent acute events/exacerbation -regular outpatient cardiac f/u HTN -lasix HLD -continue home meds Dispo: We will continue to follow the patient. Thank you for this consultative opportunity. Problem List - Problems (1) Acute on chronic respiratory failure with hypoxemia Code(s): J96.21 - ACUTE AND CHRONIC RESPIRATORY FAILURE WITH HYPOXIA (2) Acute on chronic respiratory failure with hypoxia and hypercapnia Code(s): J96.21 - ACUTE AND CHRONIC RESPIRATORY FAILURE WITH HYPOXIA J96.22 - ACUTE AND CHRONIC RESPIRATORY FAILURE WITH HYPERCAPNIA (3) COPD exacerbation Code(s): J44.1 - CHRONIC OBSTRUCTIVE PULMONARY DISEASE W (ACUTE) EXACERBATION (4) Cough Code(s): R05 - COUGH (5) Abnormal LFTs Code(s): R79.89 - OTHER SPECIFIED ABNORMAL FINDINGS OF BLOOD CHEMISTRY (6) Anxiety Code(s): F41.9 - ANXIETY DISORDER, UNSPECIFIED (7) CAD (coronary artery disease) Code(s): I25.10 - ATHSCL HEART DISEASE OF [place] CORONARY ARTERY W/O ANG PCTRS Qualifiers: Coronary Disease-Associated Artery/Lesion type: [place] artery [place] vs. transplanted heart: [place] heart Associated angina: without angina Qualified Code(s): I25.10 - Atherosclerotic heart disease of [place] coronary artery without angina pectoris (8) COPD (chronic obstructive pulmonary disease) Code(s): J44.9 - CHRONIC OBSTRUCTIVE PULMONARY DISEASE, UNSPECIFIED (9) HTN (hypertension) Code(s): I10 - ESSENTIAL (PRIMARY) HYPERTENSION Qualifiers: Hypertension type: essential hypertension Qualified Code(s): I10 - Essential (primary) hypertension (10) History of coronary artery bypass graft Code(s): Z95.1 - PRESENCE OF AORTOCORONARY BYPASS GRAFT (11) History of percutaneous coronary intervention Code(s): Z98.89 - OTHER SPECIFIED POSTPROCEDURAL STATES * DO NOT USE * (12) Hypercholesterolemia Code(s): E78.0 - PURE HYPERCHOLESTEROLEMIA * DO NOT USE * (13) Pneumonia Code(s): J18.9 - PNEUMONIA, UNSPECIFIED ORGANISM Visit type - Emergency Visit Emergency Visit: Yes ED Registration Date: 08/25/16 Care time: The patient presented to the Emergency Department on the above date and was hospitalized for further evaluation of their emergent condition. - New Patient This patient is new to me today: No - Critical Care Critical Care patient: No - Discharge Referral Referred to [facility] No
--- NOTE | 2016-08-31 16:34 | PN ---
Progress Note (short form) - Note Progress Note: PULMONARY Breathing slightly improved. Still with cough productive of rai sputum and wheezing with exertion. Last Vital Signs Temp Pulse Resp BP Pulse Ox 98.1 F 122 H 22 135/70 98 08/31/16 15:24 08/31/16 15:24 08/31/16 15:24 08/31/16 15:24 08/31/16 10:54 Gen: NAD in chair Heart: tachycardic, regular Lung: scattered wheezes, rhonchi Abd: soft, nontender Ext: + edema CBC, BMP 08/26/16 07:15 08/26/16 07:15 Active Medications Acetaminophen (Tylenol -) 650 mg PO Q6H PRN PRN Reason: FEVER OR PAIN Last Admin: 08/26/16 10:40 Dose: 650 mg Albuterol Sulfate (Ventolin 0.083% Nebulizer Soln -) 1 amp NEB Q4H PRN PRN Reason: SHORT OF BREATH/WHEEZING Last Admin: 08/31/16 10:54 Dose: 1 amp Budesonide/Formoterol Fumarate (Symbicort 80/4.5mcg -) 1 puff IH BID [facility] Last Admin: 08/31/16 10:10 Dose: 1 inh Clopidogrel Bisulfate (Plavix -) 75 mg PO DAILY [facility] Last Admin: 08/31/16 10:11 Dose: 75 mg Furosemide (Lasix -) 40 mg PO DAILY [facility] Last Admin: 08/31/16 10:11 Dose: 40 mg Levofloxacin (Levaquin 500 Mg Premixed Ivpb -) 100 mls @ 100 mls/hr IVPB DAILY [facility] Last Admin: 08/31/16 10:28 Dose: 100 mls/hr Prednisone (Deltasone -) 20 mg PO BID [facility] Last Admin: 08/31/16 10:29 Dose: 20 mg Roflumilast (Daliresp -) 500 mcg PO DAILY [facility] Last Admin: 08/31/16 10:12 Dose: 500 mcg Tiotropium [place] (Spiriva -) 1 puff IH DAILY [facility] Last Admin: 08/31/16 10:20 Dose: 1 pfu A/P Acute on Chronic Hypoxic and Hypercapneic Respiratory Failure Acute COPD Exacerbation CAD HTN Hyperlipidemia - prednisone taper - complete antibiotic course - inhaled brochodilators - O2 to keep SpO2 >90% - lasix - agree with pulmonary rehab - DVT prophylaxis
[2016-09-01] MEDS: ALBUTEROL SO4 0.083% IH SOL 2.5 MG/3 ML VIAL.NEB. NEB PRN ×3 (06:40→22:00)
--- NOTE | 2016-09-01 08:47 | PN ---
Progress Note, Physician Chief Complaint: Pt sitting up at bedside; shows faint pink on tissue after blowing nose; denies sheri bleed. No chest pain; +dyspnea on mild exertion. He is anxious (worried over whether it is better to return home, a "small and dirty place" where he takes care of himself, or go to a temporary fpc "to get stronger first "). History of Present Illness: The patient is a 61 year old male with a past medical hx of COPD, asthma, CAD s/ p PCI and stents s/p CABG in 2013, HTN, HLD who presents to the ED complaining of cough and shortness of breath for 4 days. He reports his cough is productive. The patient reports he saw his PCP on Wednesday and was given a Zpack for his symptoms. The patient notes no relief of his symptoms despite taking the Zpack. The patient states he has oxygen at home but is not fully dependent on it. He states he used his nebulizer treatment one time today. He reports associated chills and diarrhea. The patient denies fever, chest pain The patient denies nausea, vomiting, abdominal pain - Current Medication List Current Medications: Active Medications Acetaminophen (Tylenol -) 650 mg PO Q6H PRN PRN Reason: FEVER OR PAIN Last Admin: 08/26/16 10:40 Dose: 650 mg Albuterol Sulfate (Ventolin 0.083% Nebulizer Soln -) 1 amp NEB Q4H PRN PRN Reason: SHORT OF BREATH/WHEEZING Last Admin: 09/01/16 06:40 Dose: 1 amp Alprazolam (Xanax -) 0.5 mg PO TID PRN PRN Reason: ANXIETY Last Admin: 08/31/16 21:26 Dose: 0.5 mg Budesonide/Formoterol Fumarate (Symbicort 80/4.5mcg -) 1 puff IH BID [facility] Last Admin: 08/31/16 21:26 Dose: 1 inh Clopidogrel Bisulfate (Plavix -) 75 mg PO DAILY [facility] Last Admin: 08/31/16 10:11 Dose: 75 mg Furosemide (Lasix -) 40 mg PO DAILY [facility] Last Admin: 08/31/16 10:11 Dose: 40 mg Levofloxacin (Levaquin 500 Mg Premixed Ivpb -) 100 mls @ 100 mls/hr IVPB DAILY [facility] Last Admin: 08/31/16 10:28 Dose: 100 mls/hr Prednisone (Deltasone -) 20 mg PO BID [facility] Last Admin: 08/31/16 21:26 Dose: 20 mg Roflumilast (Daliresp -) 500 mcg PO DAILY [facility] Last Admin: 08/31/16 10:12 Dose: 500 mcg Tiotropium [place] (Spiriva -) 1 puff IH DAILY [facility] Last Admin: 08/31/16 10:20 Dose: 1 pfu - Objective Vital Signs: Vital Signs Temperature 98.0 F 09/01/16 06:00 Pulse Rate 106 H 09/01/16 06:00 Respiratory Rate 20 09/01/16 06:00 Blood Pressure 143/86 09/01/16 06:00 O2 Sat by Pulse Oximetry (%) 97 08/31/16 21:00 Constitutional: Yes: Anxious Eyes: Yes: WNL HENT: Yes: WNL Neck: Yes: WNL Cardiovascular: Yes: Tachycardia Respiratory: Yes: Diminished, Wheezes Gastrointestinal: Yes: Soft ...Rectal Exam: Yes: Deferred Genitourinary: No: Anuria Musculoskeletal: Yes: WNL Extremities: Yes: WNL Edema: No Peripheral Pulses WNL: Yes Integumentary: Yes: WNL Neurological: Yes: Alert, Oriented Psychiatric: Yes: Alert, Oriented Labs: CBC, BMP 08/26/16 07:15 08/26/16 07:15 INR, PTT INR 1.06 (0.82-1.09) 08/25/16 16:06 - ....Imaging Chest X-ray: Image Reviewed (COPD (emphysema); no acute infiltrate or congestion ) Problem List - Problems (1) COPD exacerbation Code(s): J44.1 - CHRONIC OBSTRUCTIVE PULMONARY DISEASE W (ACUTE) EXACERBATION (2) Cough Code(s): R05 - COUGH (3) Abnormal LFTs Code(s): R79.89 - OTHER SPECIFIED ABNORMAL FINDINGS OF BLOOD CHEMISTRY (4) Anxiety Code(s): F41.9 - ANXIETY DISORDER, UNSPECIFIED (5) CAD (coronary artery disease) Code(s): I25.10 - ATHSCL HEART DISEASE OF [place] CORONARY ARTERY W/O ANG PCTRS Qualifiers: Coronary Disease-Associated Artery/Lesion type: [place] artery [place] vs. transplanted heart: [place] heart Associated angina: without angina Qualified Code(s): I25.10 - Atherosclerotic heart disease of [place] coronary artery without angina pectoris (6) HTN (hypertension) Code(s): I10 - ESSENTIAL (PRIMARY) HYPERTENSION Qualifiers: Hypertension type: essential hypertension Qualified Code(s): I10 - Essential (primary) hypertension (7) History of coronary artery bypass graft Assessment/Plan: quit cigarettes after the CABG in 2014. Pt was on metoprolol "for years"; f/u pulmonary workup. If no bronchial asthma, consider restarting beta blockers. On clopidogrel (though denies allergy to ASA). Code(s): Z95.1 - PRESENCE OF AORTOCORONARY BYPASS GRAFT (8) History of percutaneous coronary intervention Code(s): Z98.89 - OTHER SPECIFIED POSTPROCEDURAL STATES * DO NOT USE * (9) Hypercholesterolemia Assessment/Plan: f/u lipid panel (HDL>120 a year ago). Code(s): E78.0 - PURE HYPERCHOLESTEROLEMIA * DO NOT USE * (10) Diastolic CHF Code(s): I50.30 - UNSPECIFIED DIASTOLIC (CONGESTIVE) HEART FAILURE (11) Nosebleed Assessment/Plan: no gross bleed noted; Hb WNL. On clopidogrel. Continue observation. Code(s): R04.0 - EPISTAXIS
[2016-09-01] MEDS ORDERED: PT OWN MED DRAWER 7, Y5N ONE ×3 (09:07→13:21)
[2016-09-01] MEDS: predniSONE 20 MG TABLET (UD) PO SCH ×2 (09:10→21:02)
[2016-09-01] MEDS: FUROSEMIDE 40 MG TABLET (FP) PO SCH (09:10)
[2016-09-01] MEDS: LEVOFLOXACIN 500 MG IVPB 100 ML IVPB SCH (09:10)
[2016-09-01] MEDS: ROFLUMILAST 500 MCG TABLET PO SCH (09:10)
[2016-09-01] MEDS: ALPRAZolam 0.25 MG TABLET PO PRN ×2 (09:10→21:02)
[2016-09-01] MEDS: CLOPIDOGREL BISULFATE 75 MG TABLET (FP) PO SCH (09:10)
[2016-09-01] MEDS: BUDESONIDE/FORMETEROL FUMARATE 80/4.5 mcg INHALER IH SCH ×2 (09:13→21:02)
--- NOTE | 2016-09-01 09:21 | PN ---
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 If no he can be discharged home with VNS - Current Medication List Current Medications: Active Medications Acetaminophen (Tylenol -) 650 mg PO Q6H PRN PRN Reason: FEVER OR PAIN Last Admin: 08/26/16 10:40 Dose: 650 mg Albuterol Sulfate (Ventolin 0.083% Nebulizer Soln -) 1 amp NEB Q4H PRN PRN Reason: SHORT OF BREATH/WHEEZING Last Admin: 09/01/16 06:40 Dose: 1 amp Alprazolam (Xanax -) 0.5 mg PO TID PRN PRN Reason: ANXIETY Last Admin: 09/01/16 09:10 Dose: 0.5 mg Budesonide/Formoterol Fumarate (Symbicort 80/4.5mcg -) 1 puff IH BID [facility] Last Admin: 09/01/16 09:13 Dose: 1 inh Clopidogrel Bisulfate (Plavix -) 75 mg PO DAILY [facility] Last Admin: 09/01/16 09:10 Dose: 75 mg Furosemide (Lasix -) 40 mg PO DAILY [facility] Last Admin: 09/01/16 09:10 Dose: 40 mg Levofloxacin (Levaquin 500 Mg Premixed Ivpb -) 100 mls @ 100 mls/hr IVPB DAILY [facility] Last Admin: 09/01/16 09:10 Dose: 100 mls/hr Prednisone (Deltasone -) 20 mg PO BID [facility] Last Admin: 09/01/16 09:10 Dose: 20 mg Roflumilast (Daliresp -) 500 mcg PO DAILY [facility] Last Admin: 09/01/16 09:10 Dose: 500 mcg Tiotropium [place] (Spiriva -) 1 puff IH DAILY [facility] Last Admin: 08/31/16 10:20 Dose: 1 pfu - Objective Vital Signs: Vital Signs Temperature 98.0 F 09/01/16 06:00 Pulse Rate 106 H 09/01/16 06:00 Respiratory Rate 20 09/01/16 06:00 Blood Pressure 143/86 09/01/16 06:00 O2 Sat by Pulse Oximetry (%) 97 08/31/16 21:00 Constitutional: Yes: No Distress Eyes: Yes: WNL HENT: Yes: WNL Neck: Yes: WNL Cardiovascular: Yes: WNL Respiratory: Yes: WNL, On Nasal O2 ...Rectal Exam: Yes: Deferred Genitourinary: Yes: WNL Edema: LUE: 1+, RUE: 1+, LLE: 1+, RLE: 1+ Neurological: Yes: Alert ...Motor Strength: WNL Psychiatric: Yes: WNL Labs: CBC, BMP 08/26/16 07:15 08/26/16 07:15 INR, PTT INR 1.06 (0.82-1.09) 08/25/16 16:06
[2016-09-01] MEDS: TIOTROPIUM BROMIDE 18 MCG/INH (DEVICE W/ 5 CAPSULES) IH SCH (12:00)
--- NOTE | 2016-09-01 14:05 | PN ---
Progress Note (short form) - Note Progress Note: PULMONARY Breathing slightly improved. cough productive of yellow sputum and wheezing with exertion. Last Vital Signs Temp Pulse Resp BP Pulse Ox 97.8 F 123 H 20 137/83 95 09/01/16 09:20 09/01/16 09:20 09/01/16 09:20 09/01/16 09:20 09/01/16 09:00 Gen: NAD in chair Heart: tachycardic, regular Lung: distant breath sounds Abd: soft, nontender Ext: + edema CBC, BMP 08/26/16 07:15 08/26/16 07:15 Active Medications Acetaminophen (Tylenol -) 650 mg PO Q6H PRN PRN Reason: FEVER OR PAIN Last Admin: 08/26/16 10:40 Dose: 650 mg Albuterol Sulfate (Ventolin 0.083% Nebulizer Soln -) 1 amp NEB Q4H PRN PRN Reason: SHORT OF BREATH/WHEEZING Last Admin: 09/01/16 12:11 Dose: 1 amp Alprazolam (Xanax -) 0.5 mg PO TID PRN PRN Reason: ANXIETY Last Admin: 09/01/16 09:10 Dose: 0.5 mg Budesonide/Formoterol Fumarate (Symbicort 80/4.5mcg -) 1 puff IH BID [facility] Last Admin: 09/01/16 09:13 Dose: 1 inh Clopidogrel Bisulfate (Plavix -) 75 mg PO DAILY [facility] Last Admin: 09/01/16 09:10 Dose: 75 mg Furosemide (Lasix -) 40 mg PO DAILY [facility] Last Admin: 09/01/16 09:10 Dose: 40 mg Levofloxacin (Levaquin 500 Mg Premixed Ivpb -) 100 mls @ 100 mls/hr IVPB DAILY [facility] Last Admin: 09/01/16 09:10 Dose: 100 mls/hr Prednisone (Deltasone -) 20 mg PO BID [facility] Last Admin: 09/01/16 09:10 Dose: 20 mg Roflumilast (Daliresp -) 500 mcg PO DAILY [facility] Last Admin: 09/01/16 09:10 Dose: 500 mcg Tiotropium [place] (Spiriva -) 1 puff IH DAILY [facility] Last Admin: 08/31/16 10:20 Dose: 1 pfu A/P Acute on Chronic Hypoxic and Hypercapneic Respiratory Failure Acute COPD Exacerbation CAD HTN Hyperlipidemia - prednisone taper - complete antibiotic course - inhaled brochodilators - O2 to keep SpO2 >90% - lasix - recommend inpatient pulmonary rehab - DVT prophylaxis
--- NOTE | 2016-09-02 09:21 | PN ---
Progress Note, Physician Chief Complaint: SOB little better History of Present Illness: DC home cancelled Dr Marshall highly recommends pulmonary rehab - Current Medication List Current Medications: Active Medications Acetaminophen (Tylenol -) 650 mg PO Q6H PRN PRN Reason: FEVER OR PAIN Last Admin: 08/26/16 10:40 Dose: 650 mg Albuterol Sulfate (Ventolin 0.083% Nebulizer Soln -) 1 amp NEB Q4H PRN PRN Reason: SHORT OF BREATH/WHEEZING Last Admin: 09/01/16 22:00 Dose: 1 amp Alprazolam (Xanax -) 0.5 mg PO TID PRN PRN Reason: ANXIETY Last Admin: 09/01/16 21:02 Dose: 0.5 mg Budesonide/Formoterol Fumarate (Symbicort 80/4.5mcg -) 1 puff IH BID [facility] Last Admin: 09/01/16 21:02 Dose: 1 inh Clopidogrel Bisulfate (Plavix -) 75 mg PO DAILY [facility] Last Admin: 09/01/16 09:10 Dose: 75 mg Furosemide (Lasix -) 40 mg PO DAILY [facility] Last Admin: 09/01/16 09:10 Dose: 40 mg Levofloxacin (Levaquin 500 Mg Premixed Ivpb -) 100 mls @ 100 mls/hr IVPB DAILY [facility] Last Admin: 09/01/16 09:10 Dose: 100 mls/hr Prednisone (Deltasone -) 20 mg PO BID [facility] Last Admin: 09/01/16 21:02 Dose: 20 mg Roflumilast (Daliresp -) 500 mcg PO DAILY [facility] Last Admin: 09/01/16 09:10 Dose: 500 mcg Tiotropium [place] (Spiriva -) 1 puff IH DAILY [facility] Last Admin: 09/01/16 12:00 Dose: 1 pfu - Objective Vital Signs: Vital Signs Temperature 98.1 F 09/02/16 04:00 Pulse Rate 107 H 09/02/16 04:00 Respiratory Rate 20 09/02/16 04:00 Blood Pressure 119/78 09/02/16 04:00 O2 Sat by Pulse Oximetry (%) 97 09/01/16 21:00 Constitutional: Yes: Anxious Eyes: Yes: WNL HENT: Yes: WNL Neck: Yes: WNL Cardiovascular: Yes: WNL Respiratory: Yes: On Nasal O2 Gastrointestinal: Yes: WNL ...Rectal Exam: Yes: WNL Edema: LUE: Trace, RUE: Trace, LLE: Trace, RLE: Trace Neurological: Yes: Alert Psychiatric: Yes: Alert Labs: CBC, BMP 08/26/16 07:15 08/26/16 07:15 INR, PTT INR 1.06 (0.82-1.09) 08/25/16 16:06
[2016-09-02] MEDS: ROFLUMILAST 500 MCG TABLET PO SCH (09:40)
[2016-09-02] MEDS: TIOTROPIUM BROMIDE 18 MCG/INH (DEVICE W/ 5 CAPSULES) IH SCH (09:40)
[2016-09-02] MEDS: CLOPIDOGREL BISULFATE 75 MG TABLET (FP) PO SCH (09:41)
[2016-09-02] MEDS: predniSONE 20 MG TABLET (UD) PO SCH ×2 (09:41→22:07)
[2016-09-02] MEDS: FUROSEMIDE 40 MG TABLET (FP) PO SCH (09:41)
[2016-09-02] MEDS: LEVOFLOXACIN 500 MG IVPB 100 ML IVPB SCH (09:41)
[2016-09-02] MEDS: BUDESONIDE/FORMETEROL FUMARATE 80/4.5 mcg INHALER IH SCH ×2 (09:41→22:07)
[2016-09-02] MEDS ORDERED: ATORVASTATIN CA 40 MG TABLET (FP) PO ONE (09:45)
--- NOTE | 2016-09-02 12:20 | PN ---
Progress Note, Physician History of Present Illness: This is a 61 yo m with PMH of COPD on 2L at home (noncompliant), past heavy smoker, asthma, CAD s/p PCI, CABG 2013, HTN, HLD, who presents due to SOB that started 4 days ago and has gotten worse. He reports increased cough productive of yellow flem, chills and diarrhea. His PCP prescribed him a Z Pack past wed, which helped loosen his respiratory secretions but didnt improve his sob. He currently feels unimproved from presentation. He is able to ambulate to bathroom on 2 L O2. He denies f/c, n/v, chest pain, abd pain, h/a, rhinorrhea or throat pain. Denies sick contacts. 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 CABG SVG to RCA 2013 Dr. 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 attempt 2013 [facility] - Current Medication List Current Medications: Active Medications Acetaminophen (Tylenol -) 650 mg PO Q6H PRN PRN Reason: FEVER OR PAIN Last Admin: 08/26/16 10:40 Dose: 650 mg Albuterol Sulfate (Ventolin 0.083% Nebulizer Soln -) 1 amp NEB Q4H PRN PRN Reason: SHORT OF BREATH/WHEEZING Last Admin: 09/01/16 22:00 Dose: 1 amp Alprazolam (Xanax -) 0.5 mg PO TID PRN PRN Reason: ANXIETY Last Admin: 09/01/16 21:02 Dose: 0.5 mg Budesonide/Formoterol Fumarate (Symbicort 80/4.5mcg -) 1 puff IH BID [facility] Last Admin: 09/02/16 09:41 Dose: 1 inh Clopidogrel Bisulfate (Plavix -) 75 mg PO DAILY [facility] Last Admin: 09/02/16 09:41 Dose: 75 mg Furosemide (Lasix -) 40 mg PO DAILY [facility] Last Admin: 09/02/16 09:41 Dose: 40 mg Levofloxacin (Levaquin 500 Mg Premixed Ivpb -) 100 mls @ 100 mls/hr IVPB DAILY [facility] Last Admin: 09/02/16 09:41 Dose: 100 mls/hr Prednisone (Deltasone -) 20 mg PO BID [facility] Last Admin: 09/02/16 09:41 Dose: 20 mg Roflumilast (Daliresp -) 500 mcg PO DAILY [facility] Last Admin: 09/02/16 09:40 Dose: 500 mcg Tiotropium [place] (Spiriva -) 1 puff IH DAILY [facility] Last Admin: 09/02/16 09:40 Dose: 1 pfu - Objective Vital Signs: Vital Signs Temperature 98.3 F 09/02/16 09:00 Pulse Rate 101 H 09/02/16 10:21 Respiratory Rate 20 09/02/16 09:00 Blood Pressure 130/67 09/02/16 09:00 O2 Sat by Pulse Oximetry (%) 97 09/02/16 10:21 Eyes: Yes: WNL, Conjunctiva Clear, EOM Intact HENT: Yes: WNL, Atraumatic, Normocephalic Neck: Yes: WNL, Supple, Trachea Midline Cardiovascular: Yes: WNL, Regular Rate and Rhythm Respiratory: Yes: WNL, Regular, CTA Bilaterally Gastrointestinal: Yes: WNL, Normal Bowel Sounds Genitourinary: Yes: WNL Musculoskeletal: Yes: WNL Extremities: Yes: WNL Edema: No Integumentary: Yes: WNL Neurological: Yes: WNL, Alert, Oriented ...Motor Strength: WNL Psychiatric: Yes: WNL Labs: CBC, BMP 08/26/16 07:15 08/26/16 07:15 INR, PTT INR 1.06 (0.82-1.09) 08/25/16 16:06 Assessment/Plan Problems (1) COPD exacerbation Code(s): J44.1 - CHRONIC OBSTRUCTIVE PULMONARY DISEASE W (ACUTE) EXACERBATION (2) Cough Code(s): R05 - COUGH (3) Abnormal LFTs Code(s): R79.89 - OTHER SPECIFIED ABNORMAL FINDINGS OF BLOOD CHEMISTRY (4) Anxiety Code(s): F41.9 - ANXIETY DISORDER, UNSPECIFIED (5) CAD (coronary artery disease) Code(s): I25.10 - ATHSCL HEART DISEASE OF [place] CORONARY ARTERY W/O ANG PCTRS Qualifiers: Coronary Disease-Associated Artery/Lesion type: [place] artery [place] vs. transplanted heart: lime heart Associated angina: without angina Qualified Code(s): I25.10 - Atherosclerotic heart disease of [place] coronary artery without angina pectoris (6) HTN (hypertension) Code(s): I10 - ESSENTIAL (PRIMARY) HYPERTENSION Qualifiers: Hypertension type: essential hypertension Qualified Code(s): I10 - Essential (primary) hypertension (7) History of coronary artery bypass graft Assessment/Plan: quit cigarettes after the CABG in 2014. Pt was on metoprolol "for years"; f/u pulmonary workup. If no bronchial asthma, consider restarting beta blockers. On clopidogrel (though denies allergy to ASA). Code(s): Z95.1 - PRESENCE OF AORTOCORONARY BYPASS GRAFT (8) History of percutaneous coronary intervention Code(s): Z98.89 - OTHER SPECIFIED POSTPROCEDURAL STATES * DO NOT USE * (9) Hypercholesterolemia Assessment/Plan: f/u lipid panel (HDL>120 a year ago). Code(s): E78.0 - PURE HYPERCHOLESTEROLEMIA * DO NOT USE * (10) Diastolic CHF Code(s): I50.30 - UNSPECIFIED DIASTOLIC (CONGESTIVE) HEART FAILURE (11) Nosebleed Assessment/Plan: no gross bleed noted; Hb WNL. On clopidogrel. Continue observation. Code(s): R04.0 - EPISTAXIS
[2016-09-02] MEDS: ALPRAZolam 0.25 MG TABLET PO PRN ×2 (14:26→22:07)
--- NOTE | 2016-09-02 15:45 | PN ---
Progress Note (short form) - Note Progress Note: PULMONARY VSS/AFEBNRILE SUBJECTIVE IMPROVEMENT ANICTERIC DISTANT WITYH SCATTERED WHEEZE S1S2 BS+ SOFT NO EDEMA LABS/MEDS/NOTES/IMAGING REVIEWED IMP ACUTE ON CHRONIC HYPOXEMIC/HYPERCAPNEC RESPIRATORY FAILURE RESOLVED COPD EXACERBATION ASHD /P CABG,STENTS HTN HLD PLAN ORAL STEROIDS INHALED BRONCHODILATORS O2 BIPAP IF PT DEVELOPES INCREASED RESPIRATORY DISTRESS,HYPERCAPNEA ANTIBIOTICS DALIRESP NO OBJECTION TO CONTINUING TREATMENT AT SHORT TERM REHAB Leo DAMON MD
[2016-09-02] MEDS ORDERED: PT OWN MED DRAWER 7, Y5N ONE (22:01)
[2016-09-02] MEDS: ALBUTEROL SO4 0.083% IH SOL 2.5 MG/3 ML VIAL.NEB. NEB PRN (22:29)
[2016-09-03] MEDS: ALBUTEROL SO4 0.083% IH SOL 2.5 MG/3 ML VIAL.NEB. NEB PRN (06:30)
[2016-09-03] MEDS ORDERED: PT OWN MED DRAWER 7, Y5N ONE (08:34)
[2016-09-03] MEDS: CLOPIDOGREL BISULFATE 75 MG TABLET (FP) PO SCH (09:05)
[2016-09-03] MEDS: FUROSEMIDE 40 MG TABLET (FP) PO SCH (09:05)
[2016-09-03] MEDS: TIOTROPIUM BROMIDE 18 MCG/INH (DEVICE W/ 5 CAPSULES) IH SCH (09:05)
[2016-09-03] MEDS: BUDESONIDE/FORMETEROL FUMARATE 80/4.5 mcg INHALER IH SCH (09:05)
[2016-09-03] MEDS: predniSONE 20 MG TABLET (UD) PO SCH (09:05)
[2016-09-03] MEDS: LEVOFLOXACIN 500 MG IVPB 100 ML IVPB SCH (09:05)
[2016-09-03 09:09] VITALS: BP 137/77; PULSE 110; TEMP 97.5
--- NOTE | 2016-09-03 09:12 | DS ---
Physical Examination Vital Signs: Vital Signs Temperature 98.5 F 09/03/16 06:00 Pulse Rate 106 H 09/03/16 06:00 Respiratory Rate 18 09/03/16 06:00 Blood Pressure 128/70 09/03/16 06:00 O2 Sat by Pulse Oximetry (%) 98 09/02/16 21:00 Findings/Remarks: Admitted with exacerbation of COPD treated with IV steroids and antibiotics Improved,needs pulmonary rehab .He is also known to have ASHD S/P CABG Constitutional: Yes: Mild Distress Eyes: Yes: WNL HENT: Yes: WNL Neck: Yes: WNL Cardiovascular: Yes: WNL Respiratory: Yes: On Nasal O2 Gastrointestinal: Yes: WNL ...Rectal Exam: Yes: Deferred Renal/: Yes: WNL Edema: Yes Edema: LUE: Trace, RUE: Trace, LLE: Trace, RLE: Trace Neurological: Yes: Alert ...Motor Strength: WNL Psychiatric: Yes: Alert Labs: CBC, BMP 08/26/16 07:15 08/26/16 07:15 Discharge Summary Reason For Visit: OBSTRUCTIVE CHRONIC BRONCHITIS WITH EXACERBATION Current Active Problems Acute on chronic respiratory failure with hypoxemia (Acute) Acute on chronic respiratory failure with hypoxia and hypercapnia (Acute) COPD exacerbation (Acute) Cough (Acute) Diastolic CHF (Acute) Nosebleed (Acute) - Instructions Diet, Activity, Other Instructions: PLEASE HAVE STUDENT OUTREACH COORDINATOR CALL RESPIRATORY [phone] TO REMIND THE PATIENT OF THE DATE OF SLEEP CONSULTATION APPOINTMENT ALREADY SCHEDULED. Referrals: Yohana Hendrix MD [Primary Care Provider] - - Home Medications Comprehensive Discharge Medication List: Ambulatory Orders Acetaminophen [Tylenol .Regular Strength -] 650 mg PO Q6H PRN #0 tablet Albuterol 2.5/Ipratropium 0.5 [Duoneb -] 1 amp NEB QIDR amp 05/27/16 Budesonide/Formeterol Fumarate [SYMBICORT 80/4.5mcg -] 1 puff IH BID inhaler Clopidogrel Bisulfate [Plavix -] 75 mg PO DAILY tablet 05/27/16 Furosemide [Lasix -] 40 mg PO DAILY tablet 05/27/16 Metoprolol Tartrate [Lopressor -] 25 mg PO DAILY 08/25/16 Prednisone [Deltasone -] 10 mg PO DAILY 08/25/16
[2016-09-03] MEDS: ALPRAZolam 0.25 MG TABLET PO PRN (09:34)
[2016-09-03] MEDS: ROFLUMILAST 500 MCG TABLET PO SCH (10:04)
== END 2016-09-03 10:53 | DRG 140 ==
LOC: JER 15:22 → JERBED 18:33 → J5S 19:17
PROVIDERS: ADMIT Internal Medicine; ATTEND Internal Medicine
PROC: 3E0F7GC Introduction of Other Therapeutic Substance into Respiratory Tract, Via Natural or Artificial Opening (ICD-10-PCS; principal; 2016-08-26)
DX: J44.1 Chronic obstructive pulmonary disease with (acute) exacerbation (principal); J96.21 Acute and chronic respiratory failure with hypoxia; J96.22 Acute and chronic respiratory failure with hypercapnia; I11.0 Hypertensive heart disease with heart failure; I50.30 Unspecified diastolic (congestive) heart failure; F41.9 Anxiety disorder, unspecified; R04.0 Epistaxis; I25.10 Atherosclerotic heart disease of native coronary artery without angina pectoris; R79.89 Other specified abnormal findings of blood chemistry; F17.210 Nicotine dependence, cigarettes, uncomplicated; Z95.5 Presence of coronary angioplasty implant and graft; Z91.14 Patient's other noncompliance with medication regimen; Z99.81 Dependence on supplemental oxygen; Z95.1 Presence of aortocoronary bypass graft
CPT/HCPCS: 36415; 71010-TC; 80053; 80061; 81003; 82550; 82803; 83605; 83721; 83880; 84484; 85025; 85027; 85610; 85730; 87040; 87254; 87804; 93005; 93010; 94640; 94761; 99284-25

== ENCOUNTER 2016-12-27 08:42 | Emergency (ER) | payer OTHER ==
[2016-12-27 08:59] VITALS: BMI 25.0
[2016-12-27] MEDS ORDERED: KETOROLAC TROMETHAMINE 30 MG/1 ML VIAL IVPUSH ONE (09:21)
--- NOTE | 2016-12-27 09:21 | PDOC ---
History of Present Illness - General History Source: Patient, Old Records Exam Limitations: No Limitations - History of Present Illness Initial Comments: 12/27/16 09:51 The patient is a 61 year old male with a past medical history of COPD (on home O2 2L NC), asthma, CAD s/p PCI and stents s/p CABG in 2013, HTN, HLD who presents to the emergency department today with shortness of breath and left suprapubic pain for 2 days. The patient states that his pain was manageable when first presenting but has since become worsening. He notes that his pain is exacerbated by movement. He had one episode on non-bilious non-bloody vomit yesterday. PCP: Dr. Hendrix [phone] PAST MEDICAL HISTORY: COPD, asthma, CAD, HTN, HLD PAST SURGICAL HISTORY: PCI and stents s/p CABG in 2013, SOCIAL HISTORY: Former smoker (quit 2013). Denies EtOH use since 1978 ALLERGIES: Penicillins, Seafood <Sid Morales - Last Filed: 12/27/16 12:24> - General History Source: Patient, Old Records Exam Limitations: No Limitations <Mine Mcdermott - Last Filed: 12/27/16 14:04> - General Chief Complaint: Pain, Acute Stated Complaint: PELVIC PAIN Time Seen by Provider: 12/27/16 09:14 Past History <Sid Morales - Last Filed: 12/27/16 12:24> - Past Medical History Anemia: No Asthma: No Cancer: No Cardiac Disorders: Yes (PR, stent, BYPASS) CVA: No COPD: Yes CHF: Yes Dementia: No Diabetes: No GI Disorders: No Disorders: No HTN: Yes Hypercholesterolemia: Yes Liver Disease: No Psychiatric Problems: Yes (anxiety) Seizures: No Thyroid Disease: No - Surgical History Abdominal Surgery: No Appendectomy: No Cardiac Surgery: Yes (Stent, cardiaccath) Cholecystectomy: No Lung Surgery: No Neurologic Surgery: No Orthopedic Surgery: Yes (KNEE) - Immunization History Immunization Up to Date: Yes - Psycho/Social/Smoking Cessation Hx Anxiety: No Suicidal Ideation: No Smoking Status: No Smoking History: Former smoker Have you smoked in the past 12 months: No Number of Cigarettes Smoked Daily: 0 If you are a former smoker, when did you quit?: 2 years Information on smoking cessation initiated: No Hx Alcohol Use: No (1978) Drug/Substance Use Hx: No Substance Use Type: None Hx Substance Use Treatment: No <Mine Mcdermott - Last Filed: 12/27/16 14:04> - Past Medical History Allergies/Adverse Reactions: Allergies Allergy/AdvReac Type Severity Reaction Status Date / Time Penicillins Allergy Severe Rash Verified 08/25/16 15:32 seafood Allergy Severe Rash Uncoded 08/25/16 15:32 Home Medications: Ambulatory Orders Albuterol 2.5/Ipratropium 0.5 [Duoneb -] 1 amp NEB QIDR amp 05/27/16 Budesonide/Formeterol Fumarate [SYMBICORT 80/4.5mcg -] 1 puff IH BID inhaler Clopidogrel Bisulfate [Plavix -] 75 mg PO DAILY tablet 05/27/16 Furosemide [Lasix -] 40 mg PO DAILY tablet 05/27/16 Prednisone [Deltasone -] 10 mg PO DAILY 08/25/16 Clindamycin [Cleocin -] 300 mg PO TID #21 capsule 12/27/16 Ramipril 5 mg PO DAILY 12/27/16 Simvastatin 40 mg PO DAILY 12/27/16 Review of Systems - Review of Systems Able to Perform ROS?: Yes Comments:: 12/27/16 09:51 CONSTITUTIONAL: Absent: fever, chills, diaphoresis, generalized weakness, malaise, loss of appetite HEENT: Absent: rhinorrhea, nasal congestion, throat pain, throat swelling, difficulty swallowing, mouth swelling, ear pain, eye pain, visual Changes CARDIOVASCULAR: Absent: chest pain, syncope, palpitations, irregular heart rate, lightheadedness , peripheral edema RESPIRATORY: Present: Shortness of breath Absent: cough, dyspnea with exertion, orthopnea, wheezing, stridor, hemoptysis GASTROINTESTINAL: Present: vomiting, left suprabupic pain Absent: abdominal distension, nausea, diarrhea, constipation, melena, hematochezia GENITOURINARY: Absent: dysuria, frequency, urgency, hesitancy, hematuria, flank pain, genital pain MUSCULOSKELETAL: Absent: myalgia, arthralgia, joint swelling SKIN: Absent: rash, itching, pallor HEMATOLOGIC/IMMUNOLOGIC: Absent: easy bleeding, easy bruising, lymphadenopathy, frequent infections ENDOCRINE: Absent: unexplained weight gain, unexplained weight loss, heat intolerance, cold intolerance NEUROLOGIC: Absent: headache, focal weakness or paresthesias, dizziness, unsteady gait, seizure, mental status changes, bladder or bowel incontinence PSYCHIATRIC: Absent: anxiety, depression, suicidal or homicidal ideation, hallucinations. <Sid Morales - Last Filed: 12/27/16 12:24> *Physical Exam - Vital Signs Last Vital Signs Temp Pulse Resp BP Pulse Ox 97.5 F L 109 H 22 125/87 99 12/27/16 08:50 12/27/16 08:50 12/27/16 08:50 12/27/16 08:50 12/27/16 08:50 - Physical Exam Comments: 12/27/16 09:51 GENERAL: Well developed, well nourished. Awake and alert. In no acute distress. HEENT: Normocephalic, atraumatic. PERRLA, EOMI. No conjunctival pallor. Sclera are non- icteric. Moist mucous membranes. Oropharynx is clear. NECK: Supple. Full ROM. No JVD. Carotid pulses 2+ and symmetric, without bruits. No thyromegaly. No lymphadenopathy. CARDIOVASCULAR: Regular rate and rhythm. No murmurs, rubs, or gallops. Distal pulses are 2+ and symmetric. PULMONARY: (+) No evidence of respiratory distress. Lungs clear to auscultation bilaterally. No wheezing, rales or rhonchi. Breath sounds are discount but clear ABDOMINAL: (+) Soft. LLQ and left inguinal tenderness no inguinal hernias, penis is circumcised. Non-distended. No rebound or guarding. No organomegaly. Normoactive bowel sounds. MUSCULOSKELETAL Normal range of motion at all joints. No bony deformities or tenderness. No CVA tenderness. EXTREMITIES: No cyanosis. No clubbing. No edema. No calf tenderness. SKIN: Warm and dry. Normal capillary refill. No rashes. No jaundice. NEUROLOGICAL: Alert, awake, appropriate. Cranial nerves 2-12 intact. No deficits to light touch and temperature in face, upper extremities and lower extremities. No motor deficits in the in face, upper extremities and lower extremities. Normoreflexic in the upper and lower extremities. Normal speech. Toes are downgoing bilaterally. Gait is normal without ataxia. PSYCHIATRIC: Cooperative. Good eye contact. Appropriate mood and affect. <Sid Morales - Last Filed: 12/27/16 12:24> - Vital Signs Last Vital Signs Temp Pulse Resp BP Pulse Ox 97.5 F L 109 H 22 125/87 99 12/27/16 08:50 12/27/16 08:50 12/27/16 08:50 12/27/16 08:50 12/27/16 08:50 <Mine Mcdermott - Last Filed: 12/27/16 14:04> ED Treatment Course - LABORATORY CBC & Chemistry Diagram: 12/27/16 09:25 12/27/16 09:25 - ADDITIONAL ORDERS Additional order review: Laboratory Results 12/27/16 09:25 Phosphorus Cancelled - RADIOLOGY Radiograph Interpretation: 12/27/16 10:52 EXAM#: TYPE/EXAM: RESULT: [id number] CT/ABDOMEN PELVIS CT W/O CONTR ADDENDUM * ADDENDUM #1 Addendum: Centrilobular emphysema is seen involving the partially imaged lower chest. ORIGINAL REPORT Abdomen and pelvis CT (without contrast) Clinical information: left lower quadrant pain Multiplanar imaging was performed. As requested no intravenous or oral contrast was administered. Diffuse colonic diverticulosis is noted without evidence of acute diverticulitis. Mild to moderate prostate enlargement. Small left inguinal hernia containing fat only. The appendix appears unremarkable. Colonic fecal retention which is probably moderate. No evidence of pneumoperitoneum, free intraperitoneal fluid or bowel obstruction. A right flank hernia is noted into which the descending colon bulges. No left-sided flank hernia is seen. There is equivocal subtle hepatic surface irregularity along the right lobe inferiorly. Clinical/ laboratory correlation is suggested in regards to possible cirrhosis. The spleen, pancreas, gallbladder, and adrenal glands and kidneys demonstrate no discrete noncontrast pathology. There is mild atherosclerotic dilatation of the infrarenal aorta. Somewhat prominent atherosclerotic aortic wall calcifications are noted. No definite lymphadenopathy is seen. Impression: No definite CT findings of acute pathology are identified. Colonic diverticulosis. Right flank hernia with the ascending colon bulging into the hernia defect. Small left inguinal hernia containing fat only. Equivocal subtle CT evidence of hepatic cirrhosis. atherosclerotic aortic wall calcifications are noted which may be somewhat more prominent than would be expected for the patient's chronologic age. Mild L1 superior endplate compression fracture which appears chronic. No bony retropulsion is seen. Reported By: Nacho Avalos MD 12/27/[address] (without contrast) Clinical information: left lower quadrant pain Multiplanar imaging was performed. As requested no intravenous or oral contrast was administered. Diffuse colonic diverticulosis is noted without evidence of acute diverticulitis. Mild to moderate prostate enlargement. Small left inguinal hernia containing fat only. The appendix appears unremarkable. Colonic fecal retention which is probably moderate. No evidence of pneumoperitoneum, free intraperitoneal fluid or bowel obstruction. A right flank hernia is noted into which the descending colon bulges. No left-sided flank hernia is seen. There is equivocal subtle hepatic surface irregularity along the right lobe inferiorly. Clinical/ laboratory correlation is suggested in regards to possible cirrhosis. The spleen, pancreas, gallbladder, and adrenal glands and kidneys demonstrate no discrete noncontrast pathology. There is mild atherosclerotic dilatation of the infrarenal aorta. Somewhat prominent atherosclerotic aortic wall calcifications are noted. No definite lymphadenopathy is seen. Impression: No definite CT findings of acute pathology are identified. Colonic diverticulosis. Right flank hernia with the ascending colon bulging into the hernia defect. Small left inguinal hernia containing fat only. Equivocal subtle CT evidence of hepatic cirrhosis. atherosclerotic aortic wall calcifications are noted which may be somewhat more prominent than would be expected for the patient's chronologic age. Mild L1 superior endplate compression fracture which appears chronic. No bony retropulsion is seen. Reported By: Nacho Avalos MD [id number] - Medications Given in the ED: ED Medications Discontinued Medications Generic Name Dose Route Start Last Admin Trade Name Mauriq PRN Reason Stop Dose Admin Ketorolac Tromethamine 30 mg 12/27/16 09:21 12/27/16 09:28 Toradol Injection - IVPUSH 12/27/16 09:22 30 mg ONCE ONE Administration <Sid Morales - Last Filed: 12/27/16 12:24> - LABORATORY CBC & Chemistry Diagram: 12/27/16 09:25 12/27/16 09:25 <Mine Mcdermott - Last Filed: 12/27/16 14:04> Medical Decision Making - Medical Decision Making 12/27/16 09:23 61-year-old male with history of COPDon home O2 2 L nasal cannula, CHF, hypertension, coronary artery disease status post CABG presents the emergency Department with complaints of 2 day history of left lower quadrant pain radiating into the groin. Differential diagnosis includes but is not limited to : Diverticulitis/diverticulosis, nephrolithiasis, UTI, muscular strain. Plan: 1. Labs 2. Urine analysis 3. EKG 4. Pain management 5. Antiemetics 6. CT scan of abdomen and pelvis without contrast 7. Observe and reevaluate 12/27/16 14:00 Addendum: Labs are reviewed and are noted in the EMR. Urine analysis showed several red blood cells therefore CT scan of the abdomen and pelvis was performed which shows a small fat containing left inguinal hernia, diverticular disease without evidence of diverticulitis and no other acute intra-abdominal process. I have reevaluated the patient at this time and he continues to complain of left groin pain at this time. He appears to have inguinal lymphadenopathy that is present to palpation. The left lower extremity ultrasound to rule out DVT was obtained and was indeed negative for deep vein thrombosis. I have discussed the case with the patient's primary care physician and the plan is to discharge home, follow up with Dr. Richter tomorrow and will discharge on clindamycin 300 mg 3 times a day for 7 days. I have also instructed the patient to return to the emergency department if his symptoms persist, worsen, or new symptoms arise. <Mine Mcdermott - Last Filed: 12/27/16 14:04> *DC/Admit/Observation/Transfer - Attestations Scribe Attestion: 12/27/16 09:52 Documentation prepared by Sid Morales, acting as medical technologist blood bank for Mine Mcdermott MD. <Sid Morales - Last Filed: 12/27/16 12:24> - Discharge Dispostion Admit: No - Attestations Physician Attestion: 12/27/16 09:24 I, Dr. Mine Mcdermott, attest that the scribes documentation that appears above has been prepared under my direction and personally reviewed by me in its entirety. I confirmed that the note above accurately reflects all work, treatment, procedures, and medical decision-making performed by me. <Mine Mcdermott - Last Filed: 12/27/16 14:04> Diagnosis at time of Disposition: LLQ pain - Discharge Dispostion Disposition: HOME Condition at time of disposition: Stable - Prescriptions Prescriptions: Clindamycin [Cleocin -] 300 mg PO TID #21 capsule - Referrals Referrals: Yohana Hendrix MD [Primary Care Provider] - - Patient Instructions Printed Discharge Instructions: Groin Hernia -- Adult Additional Instructions: You are being discharged with a precription for an antibiotic called Clindamycin 300-take one tablet 3 times per day for one week for a presumed lymphadenitis. Please follow-up with Dr. Richter in the office tomorrow. You may take tylenol as needed for pain. Return to the ED if symptoms persist, worsen or new symptoms arise.
[2016-12-27] MEDS ORDERED: KETOROLAC TROMETHAMINE 30 MG/1 ML VIAL ONE (09:35)
[2016-12-27 09:46] LABS: WHITE BLOOD COUNT 16.3 K/mm3 (4.0-10.0)
[2016-12-27 09:50] LABS: URINE APPEARANCE CLEAR; URINE BILIRUBIN NEGATIVE (NEGATIVE); URINE BLOOD NEGATIVE (NEGATIVE); URINE COLOR YELLOW; URINE GLUCOSE (UA) NEGATIVE (NEGATIVE); URINE KETONE TRACE (NEGATIVE); URINE LEUK ESTERASE NEGATIVE (NEGATIVE); URINE NITRITE NEGATIVE (NEGATIVE); URINE UROBILINOGEN NEGATIVE E.U./dl (0.2-1.0)
[2016-12-27 09:50] LABS: BASOPHIL 0.3 % (0-2.0); EOSINOPHIL 0.8 % (0-4.5); MCH 25.9 pg (25.7-33.7); MCHC 32.3 g/dl (32.0-35.9); MEAN CELL VOLUME 80.1 fl (80-96); MEAN PLT VOLUME 7.3 fl (7.5-11.1); NEUTROPHILS 75.7 % (42.8-82.8); PLATELET COUNT 532 K/MM3 (134-434); RDW 15.1 % (11.9-15.9)
[2016-12-27 09:54] LABS: URINE PROTEIN 1+ (NEGATIVE)
[2016-12-27 09:55] LABS: ANION GAP 9 (8-16); BILIRUBIN,TOTAL 0.5 mg/dL (0.2-1.0); CALCIUM 9.4 mg/dL (8.5-10.1); CO2 30 mmol/L (21-32); CREATININE 0.8 mg/dL (0.7-1.3); GLUCOSE,RANDOM 112 mg/dL (74-106); MAGNESIUM 2.1 mg/dL (1.8-2.4); PHOSPHOROUS 3.3 mg/dL (2.5-4.9); SGOT/AST 25 U/L (15-37); SGPT/ALT 26 U/L (12-78); TOT PROT 7.7 g/dl (6.4-8.2)
[2016-12-27 09:55] LABS: URINE MUCUS FEW; URINE RBC <1 /hpf (0-3); URINE WBC 4 /hpf (3-5)
[2016-12-27 09:56] LABS: ALK PHOS 213 U/L (45-117); TROPONIN I < 0.02 ng/ml (0.00-0.05)
[2016-12-27 10:53] VITALS: BP 134/76; PULSE 68; TEMP 98.2
[2016-12-27] MEDS ORDERED: OXYCODONE/APAP 5/325MG COMBO TABLET PO ONE (11:02)
[2016-12-27] MEDS ORDERED: OXYCODONE/APAP 5/325MG COMBO TABLET ONE (11:04)
[2016-12-27] MEDS ORDERED: CLINDAMYCIN HCL 150 MG CAPSULE (FP) PO ONE (12:35)
[2016-12-27] MEDS ORDERED: CLINDAMYCIN HCL 150 MG CAPSULE (FP) ONE (12:39)
--- NOTE | 2016-12-27 17:24 | EKG ---
Test Reason : Blood Pressure : / mmHG Vent. Rate : 106 BPM Atrial Rate : 106 BPM P-R Int : 120 ms QRS Dur : 130 ms QT Int : 354 ms P-R-T Axes : 077 086 072 degrees QTc Int : 470 ms SINUS TACHYCARDIA RIGHT BUNDLE BRANCH BLOCK ABNORMAL ECG WHEN COMPARED WITH ECG OF 25-AUG-2016 16:17, PREMATURE VENTRICULAR COMPLEXES ARE NO LONGER PRESENT Confirmed by BRIANNA RAMOS, TORSTEN ([id number]) on 12/27/2016 5:23:58 PM Referred By: Confirmed By:TORSTEN REED MD
== END 2016-12-27 15:10 | disposition home or self-care (01) ==
LOC: JER 08:42
PROC: 3E0333Z Introduction of Anti-inflammatory into Peripheral Vein, Percutaneous Approach (ICD-10-PCS; principal; 2016-12-27)
DX: R10.32 Left lower quadrant pain (principal); I25.10 Atherosclerotic heart disease of native coronary artery without angina pectoris; I11.0 Hypertensive heart disease with heart failure; Z95.1 Presence of aortocoronary bypass graft; Z95.5 Presence of coronary angioplasty implant and graft; E78.00 Pure hypercholesterolemia, unspecified; Z99.81 Dependence on supplemental oxygen
CPT/HCPCS: 36415; 71020-TC; 74176-TC; 80053; 81003; 81015; 82550; 82553; 83690; 83735; 84100; 84484; 85025; 93005; 93010; 93971-TC; 96374; 99282-25

== ENCOUNTER 2017-01-02 16:32 | Inpatient (IN) | payer OTHER ==
[2017-01-02 16:39] VITALS: BMI 24.2
[2017-01-02 17:59] LABS: BASOPHIL 0.2 % (0-2.0); EOSINOPHIL 0.1 % (0-4.5); MCHC 31.6 g/dl (32.0-35.9); MEAN CELL VOLUME 79.1 fl (80-96); MEAN PLT VOLUME 7.3 fl (7.5-11.1); NEUTROPHILS 85.2 % (42.8-82.8); PLATELET COUNT 510 K/MM3 (134-434); RDW 15.4 % (11.9-15.9); WHITE BLOOD COUNT 15.2 K/mm3 (4.0-10.0)
--- NOTE | 2017-01-02 17:59 | PDOC ---
History of Present Illness - General Chief Complaint: SIRS, Suspected/Possible Stated Complaint: PAIN, ACUTE Time Seen by Provider: 01/02/17 16:50 - History of Present Illness Initial Comments: 01/02/17 17:52 Patient is a 61M with a PMH of CAD s/p stents and bypass, HLD and HTN here today complaining of left inguinal pain. He visited this emergency department on 12/27 with similar complaints. His white count was elevated to 16. His CT showed a non-incarcerated hernia in his right flank and left inguinal area, and a chronic compression fracture in L1. His UA was normal. He was discharged with clindamycin and told to follow up with his pcp. He presented again to the ED because the pain in left inguinal pain. The pain radiates down his left leg and to his left back. He states that he had one episode of clear emesis. He endorses shortness of breath. He denies saddle anesthesia, bowel incontinence, problems urinating, pain in testicles, chest pain, fevers and chills. His last bowel movement was this morning and did not contain blood. Past History - Past Medical History Allergies/Adverse Reactions: Allergies Allergy/AdvReac Type Severity Reaction Status Date / Time Penicillins Allergy Severe Rash Verified 01/02/17 16:34 seafood Allergy Severe Rash Uncoded 01/02/17 16:34 Home Medications: Ambulatory Orders Albuterol 2.5/Ipratropium 0.5 [Duoneb -] 1 amp NEB QIDR amp 05/27/16 Budesonide/Formeterol Fumarate [SYMBICORT 80/4.5mcg -] 1 puff IH BID inhaler Clopidogrel Bisulfate [Plavix -] 75 mg PO DAILY tablet 05/27/16 Furosemide [Lasix -] 40 mg PO DAILY tablet 05/27/16 Prednisone [Deltasone -] 10 mg PO DAILY 08/25/16 Clindamycin [Cleocin -] 300 mg PO TID #21 capsule 12/27/16 Oxycodone HCl/Acetaminophen [Percocet 5-325 mg Tablet] 1 tab PO Q4H #10 tablet MDD 4 12/27/16 Ramipril 5 mg PO DAILY 12/27/16 Simvastatin 40 mg PO DAILY 12/27/16 Anemia: No Asthma: No Cancer: No Cardiac Disorders: Yes (FL, stent, BYPASS) CVA: No COPD: Yes CHF: Yes Dementia: No Diabetes: No GI Disorders: No Disorders: No HTN: Yes Hypercholesterolemia: Yes Liver Disease: No Psychiatric Problems: Yes (anxiety) Seizures: No Thyroid Disease: No Other medical history: o2 prn - Surgical History Abdominal Surgery: No Appendectomy: No Cardiac Surgery: Yes (Stent, cardiaccath) Cholecystectomy: No Lung Surgery: No Neurologic Surgery: No Orthopedic Surgery: Yes (KNEE) - Immunization History Immunization Up to Date: Yes - Psycho/Social/Smoking Cessation Hx Anxiety: No Suicidal Ideation: No Smoking Status: No Smoking History: Former smoker Have you smoked in the past 12 months: No Number of Cigarettes Smoked Daily: 0 If you are a former smoker, when did you quit?: 2 years Information on smoking cessation initiated: No Hx Alcohol Use: No Drug/Substance Use Hx: No Substance Use Type: None Hx Substance Use Treatment: No Abd/GI Specific PMHX - Complaint Specific PMHX GERD: No GI Ulcer Disease: No Review of Systems - Review of Systems Constitutional: No: Chills, Fever HEENTM: No: Recent change in vision Respiratory: Yes: Shortness of Breath Cardiac (ROS): No: Chest Pain, Palpitations ABD/GI: Yes: Nausea, Vomiting. No: Constipated, Diarrhea : No: Dysuria, Frequency, Incontinence Musculoskeletal: Yes: Back Pain, Joint Pain, Muscle Pain Integumentary: No: Rash Neurological: No: Headache *Physical Exam - Vital Signs Last Vital Signs Temp Pulse Resp BP Pulse Ox 98.1 F 132 H 20 118/65 93 L 01/02/17 16:35 01/02/17 16:35 01/02/17 16:35 01/02/17 16:35 01/02/17 16:35 - Physical Exam Comments: 01/02/17 18:25 Constitutional: Well nourished, overweight, in moderate distress Head: Normocephalic, atraumatic HEENT: External inspection is normal, loss of front right tooth CV: Tachycardic, regular rhythm, no murmurs, rubs or gallops Resp: Normal work of breathing, clear to auscultation bilaterally Abd: Tender in lower left quadrant, no palpable organomegaly or pulsatile masses , no palpable hernias. Normal bowel sounds. : Normal external genitalia, no inguinal hernia Rectal: Normal rectal tone, no sheri blood or masses Ext: 2+ pulses in lower extremities, warm Neuro: No focal neuro deficits, 2+ DTRs in both knees, CN2-12 intact ED Treatment Course - LABORATORY CBC & Chemistry Diagram: 01/02/17 17:43 01/02/17 17:43 Medical Decision Making - Medical Decision Making 01/02/17 18:31 Patient is a 61 year old male with history of CAD s/p stents and bypass, and COPD here today complaining of inguinal pain. Tachycardic with ECG showing RBBB. RBBB is unchanged from ECG on 08/17/16. No new changes on his ECG. Differential diagnosis for the left inguinal pain includes, but is not limited to: musculoskeletal pain, radiculopathy, incarcerated hernia, diverticulitis, UTI. Believe that radiculopathy is most likely given prior re-assuring CT scans on 12/27, normal UA on 12/27 and physical exam. Due to persistent tachycardia, will get D-dimer to attempt to rule out PE. CMP, CBC and UA also ordered. Prior CT showed chronic fracture of L1. 01/02/17 20:07 D-dimer >5000. CTA ordered to rule out PE. 01/02/17 21:15 Hip and pelvis x-ray reviewed and show no fracture or dislocation. CTA negative for PE. HR down from 130 to 104 after fluids. *DC/Admit/Observation/Transfer Diagnosis at time of Disposition: Intractable pain, Sinus tachycardia Compression fracture of first lumbar vertebra Qualifiers: Encounter type: initial encounter Fracture type: closed Qualified Code(s): S32.010A - Wedge compression fracture of first lumbar vertebra, initial encounter for closed fracture Radiculopathy Qualifiers: Spinal region: lumbar Qualified Code(s): M54.16 - Radiculopathy, lumbar region - Discharge Dispostion Condition at time of disposition: Fair Admit: Yes - Referrals Referrals: Yohana Hendrix MD [Primary Care Provider] -
[2017-01-02] MEDS ORDERED: SODIUM CHLORIDE 500 ML IV STA (18:03)
[2017-01-02] MEDS ORDERED: ALBUTEROL SO4 2.5/IPRATROPIUM 0.5 INH SOL 3 ML VIAL.NEB. NEB ONE (18:14)
[2017-01-02 18:26] LABS: URINE APPEARANCE CLEAR; URINE BILIRUBIN NEGATIVE (NEGATIVE); URINE BLOOD NEGATIVE (NEGATIVE); URINE COLOR YELLOW; URINE GLUCOSE (UA) NEGATIVE (NEGATIVE); URINE KETONE TRACE (NEGATIVE); URINE LEUK ESTERASE NEGATIVE (NEGATIVE); URINE NITRITE NEGATIVE (NEGATIVE); URINE PROTEIN NEGATIVE (NEGATIVE); URINE UROBILINOGEN 2.0 E.U/dl E.U./dl (0.2-1.0)
[2017-01-02 18:32] LABS: ALBUMIN 3.2 g/dl (3.4-5.0); ALK PHOS 178 U/L (45-117); ANION GAP 7 (8-16); BILIRUBIN,TOTAL 0.6 mg/dL (0.2-1.0); CALCIUM 8.8 mg/dL (8.5-10.1); CO2 32 mmol/L (21-32); GLUCOSE,RANDOM 125 mg/dL (74-106); SGOT/AST 18 U/L (15-37); SGPT/ALT 19 U/L (12-78); TOT PROT 7.6 g/dl (6.4-8.2)
--- NOTE | 2017-01-02 21:08 | PDOC ---
Attending Attestation - Resident Resident Name: Raul Shahid - ED Attending Attestation I have performed the following: I have examined & evaluated the patient, The case was reviewed & discussed with the resident, I agree w/resident's findings & plan, Exceptions are as noted - HPI HPI: 01/02/17 21:10 61-year-old male with multiple comorbidities, presents to the ER with atraumatic left sided low back pain, left hip pain and left leg pain for the past several days that is not effectively controlled by mouth Percocet, and is increased in severity. Patient been seen and evaluated in this ER previously and underwent a CT of abdomen and pelvis which revealed a compression fracture of the superior endplate of L1, a left inguinal hernia containing fat only, but no evidence of nephrolithiasis or other acute intra-abdominal pathology. - Physicial Exam PE: 01/02/17 21:14 In the ER, patient is awake and alert, tachycardic, afebrile, in mild distress. Physical exam reveals reproducible left lower back paraspinal tenderness to palpation, pain with internal/external rotation of left hip as well as pain along the proximal anterior aspect of the left thigh. Patient is neurovascularly intact distally with intact DTRs and good rectal tone as per Dr. Gaffney's evaluation. - Medical Decision Making 01/02/17 21:15 Patient is a 61-year-old male with multiple comorbidities who presents with signs and symptoms of likely L1 radiculopathy that may be related to the compression fracture identified earlier on the CT. There is no evidence of cauda equina or conus medullaris at this time. Left hip x-ray reveals no evidence of significant DJD or avascular necrosis of the left hip. Patient's EKG is unchanged from previous and reveals underlying RBBB; d-dimer was elevated and CTA was obtained. There is no evidence of pulmonary embolism at this time. Will discuss with PMD. Will reassess.
[2017-01-02] MEDS ORDERED: morphine CARPU-JECT 4 MG/1 ML DISP.SYRIN IVPUSH ONE (22:35)
[2017-01-02] MEDS ORDERED: morphine CARPU-JECT 4 MG/1 ML DISP.SYRIN ONE (23:35)
[2017-01-02] MEDS ORDERED: OXYCODONE/APAP 5/325MG COMBO TABLET PO SCH (23:45)
[2017-01-02] MEDS ORDERED: HYDROmorphone HCL CARPU-JECT 1 MG/1 ML DISP.SYRIN IVPB PRN (23:59)
[2017-01-02] MEDS ORDERED: ONDANSETRON 4 MG/2 ML VIAL IVPB PRN (23:59)
[2017-01-03] MEDS: oxyCODONE HCL 5 MG TABLET PO PRN ×3 (06:50→21:40)
[2017-01-03] MEDS: ACETAMINOPHEN 325 MG TABLET (FP) PO PRN ×3 (06:53→21:40)
[2017-01-03 07:38] LABS: BASOPHIL 0.6 % (0-2.0); EOSINOPHIL 1.9 % (0-4.5); MCH 25.7 pg (25.7-33.7); MCHC 32.6 g/dl (32.0-35.9); NEUTROPHILS 68.3 % (42.8-82.8); PLATELET COUNT 409 K/MM3 (134-434); RDW 15.4 % (11.9-15.9); WHITE BLOOD COUNT 8.8 K/mm3 (4.0-10.0)
[2017-01-03 08:17] LABS: ALBUMIN 2.6 g/dl (3.4-5.0); ALK PHOS 149 U/L (45-117); ANION GAP 5 (8-16); BILIRUBIN,TOTAL 0.6 mg/dL (0.2-1.0); CALCIUM 8.6 mg/dL (8.5-10.1); CO2 33 mmol/L (21-32); CREATININE 0.8 mg/dL (0.7-1.3); GLUCOSE,RANDOM 77 mg/dL (74-106); SGOT/AST 17 U/L (15-37); SGPT/ALT 16 U/L (12-78); TOT PROT 6.3 g/dl (6.4-8.2)
[2017-01-03] MEDS: RAMIPRIL 5 MG CAPSULE (FP) PO SCH (09:47)
[2017-01-03] MEDS: predniSONE 10 MG TABLET (UD) PO SCH (09:47)
[2017-01-03] MEDS: BUDESONIDE/FORMETEROL FUMARATE 80/4.5 mcg INHALER IH SCH ×2 (09:48→21:22)
[2017-01-03] MEDS: CLOPIDOGREL BISULFATE 75 MG TABLET (FP) PO SCH (09:48)
[2017-01-03] MEDS: LIDOCAINE 5% TOPICAL PATCH TP SCH (09:48)
[2017-01-03] MEDS: FUROSEMIDE 40 MG TABLET (FP) PO SCH (09:48)
--- NOTE | 2017-01-03 09:54 | PN ---
Progress Note (short form) - Note Progress Note: NEUROSURGERY H/O CAD s/p CABG and stent, HTN, COPD, hypercholesterolemia reportedly with back pain and L hip/thigh pain for about 10l days duration; no reported trauma Chart reviewed CT scans of chest (7-7) and Abd (7-2) reviewed relevant to spine pathology L1 mild superior endplate depression of approximately 10-15% centrally with mild superior endplate retropulsion but no canal compromise; osteopenia Does not appear to be a neurosurgical candidate given relatively mild CT scan pathology of spine Medical management for osteoporosis Consider pain management input for pain (pain management injection vs vertebroplasty if persistent pain) DVT prophylaxis Full consult to follow
[2017-01-03] MEDS: ALBUTEROL SO4 2.5/IPRATROPIUM 0.5 INH SOL 3 ML VIAL.NEB. NEB SCH ×4 (11:33→23:04)
--- NOTE | 2017-01-03 12:46 | HP ---
Admitting History and Physical - Primary Care Physician PCP: Yohana Hendrix - Admission Chief Complaint: Left lumbar pain Radiates to Left LE History of Present Illness: 61 yrs old man multiple medical co-morbidities H/O HTN, COPD Emphysema GOLD stage 4 on Home O2 CAD chronic back pain, patient has been having lower back pain for past few wks fort that he visited ED last wk work up shows compression fracture of LA Endplate, patient was discharged home on Po pain medication, remained symptomatic, now pain aggravated to 10/10 radiates to Left Hip, LE like electrical sensations, unable to sleep to pain denies any sensory loss in saddle area or bowel bl;adder incontinence, considering L1 compression fracture, intractable pain and co-morbidities admitted for inpatient pain management and evaluation, denies any fever, chills, nausea, vomiting, dysuria or diarrhea, at base line ET limited. On Home O2. - Past Medical History Cardiovascular: Yes: CAD, HTN, Hyperlipdemia Pulmonary: Yes: COPD - Past Surgical History Past Surgical History: Yes: CABG, Stent - Smoking History Smoking history: Former smoker Have you smoked in the past 12 months: No Aproximately how many cigarettes per day: 0 If you are a former smoker, when did you quit?: 2 years - Alcohol/Substance Use Hx Alcohol Use: No Home Medications - Allergies Allergies/Adverse Reactions: Allergies Allergy/AdvReac Type Severity Reaction Status Date / Time Penicillins Allergy Severe Rash Verified 01/02/17 16:34 seafood Allergy Severe Rash Uncoded 01/02/17 16:34 - Home Medications Home Medications: Ambulatory Orders Albuterol 2.5/Ipratropium 0.5 [Duoneb -] 1 amp NEB QIDR amp 05/27/16 Budesonide/Formeterol Fumarate [SYMBICORT 80/4.5mcg -] 1 puff IH BID inhaler Clopidogrel Bisulfate [Plavix -] 75 mg PO DAILY tablet 05/27/16 Furosemide [Lasix -] 40 mg PO DAILY tablet 05/27/16 Prednisone [Deltasone -] 10 mg PO DAILY 08/25/16 Clindamycin [Cleocin -] 300 mg PO TID #21 capsule 12/27/16 Oxycodone HCl/Acetaminophen [Percocet 5-325 mg Tablet] 1 tab PO Q4H #10 tablet MDD 4 12/27/16 Ramipril 5 mg PO DAILY 12/27/16 Simvastatin 40 mg PO DAILY 12/27/16 Family Disease History - Family Disease History Family Disease History: Heart Disease: Grandparent, Other: Brother (Lupus) Review of Systems - Review of Systems Constitutional: denies: Chills, Diaphoresis, Fever, Unintentional Wgt. Loss HENT: reports: No Symptoms. denies: Difficult Swallowing, Ear Discharge Neck: reports: No Symptoms. denies: Decreased ROM, Lumps, Pain on Movement Cardiovascular: reports: No Symptoms. denies: Chest Pain, Edema, Palpitations Respiratory: reports: Exercise Intolerance, Orthopnea, SOB on Exertion Gastrointestinal: denies: Abdominal Pain, Bloating, Constipation Breasts: reports: No Symptoms Reported Musculoskeletal: reports: Back Pain, Decreased ROM, Extremity Pain, Muscle Pain. denies: Joint Swelling Neurological: reports: No Symptoms. denies: Change in LOC, Change in Speech, Confusion Endocrine: reports: No Symptoms. denies: Excessive Sweating, Flushing Hematology/Lymphatic: reports: No Symptoms. denies: Easily Bruised, Excessive Bleeding Psychiatric: reports: No Symptoms Pain Intensity: 10 Physical Examination Vital Signs: Vital Signs Temperature 98.6 F 01/03/17 09:37 Pulse Rate 99 H 01/03/17 11:33 Respiratory Rate 18 01/03/17 09:37 Blood Pressure 114/67 01/03/17 09:37 O2 Sat by Pulse Oximetry (%) 100 01/03/17 11:33 P Exam: Middle aged man looks elder to his age c/o sever Back pain HEENT: Mm moist, no anemia, PERRLA, EOMI NECK: No JVd, No Bruit, Normal thyroid CHEST: B/L Distant sound , Crepts + CVS: s1S2 R no m/g/R ABD: No distention, mild inguinal hermit, no Distention, Non tender Bs + EXT: Tenderness in Lumbar area, No edema feet, No calf Tenderness, Pulses + DEHYDROGENATION SUPERVISOR: AOX3 Normal speech Normal Cranil N 2-12 Noral sensation; Motor Exam Limited due to pain no gross weakness Reflex + Cerbellar Not tested due tp pain. Labs: CBC, BMP 01/03/17 06:05 01/03/17 06:05 Laboratory Results - last 24 hr 01/02/17 01/02/17 01/02/17 17:43 17:43 18:11 WBC 15.2 H RBC 4.38 Hgb 10.9 L Hct 34.7 L MCV 79.1 L MCH 25.0 L MCHC 31.6 L RDW 15.4 Plt Count 510 H MPV 7.3 L Neutrophils % 85.2 H Lymphocytes % 8.9 D Monocytes % 5.6 Eosinophils % 0.1 D Basophils % 0.2 D-Dimer Sodium 135 L Potassium 4.5 Chloride 96 L Carbon Dioxide 32 Anion Gap 7 L BUN 19 H D Creatinine 1.0 D Creat Clearance w eGFR > 60 Random Glucose 125 H Hemoglobin A1c % Calcium 8.8 Total Bilirubin 0.6 AST 18 D ALT 19 D Alkaline Phosphatase 178 H Total Protein 7.6 Albumin 3.2 L Urine Color Yellow Urine Appearance Clear Urine pH 5.0 Ur Specific [place] 1.020 Urine Protein Negative Urine Glucose (UA) Negative Urine Ketones Trace H Urine Blood Negative Urine Nitrite Negative Urine Bilirubin Negative Urine Urobilinogen 2.0 e.u/dl Ur Leukocyte Esterase Negative 01/02/17 01/03/17 01/03/17 18:11 06:05 06:05 WBC 8.8 D RBC 4.05 Hgb 10.4 L Hct 32.0 L MCV 79.0 L MCH 25.7 MCHC 32.6 RDW 15.4 Plt Count 409 MPV 7.0 L Neutrophils % 68.3 Lymphocytes % 19.9 D Monocytes % 9.3 Eosinophils % 1.9 D Basophils % 0.6 D-Dimer > 5000 H Sodium 138 Potassium 4.7 Chloride 100 Carbon Dioxide 33 H Anion Gap 5 L BUN 17 Creatinine 0.8 Creat Clearance w eGFR > 60 Random Glucose 77 D Hemoglobin A1c % Calcium 8.6 Total Bilirubin 0.6 AST 17 ALT 16 Alkaline Phosphatase 149 H Total Protein 6.3 L Albumin 2.6 L Urine Color Urine Appearance Urine pH Ur Specific [place] Urine Protein Urine Glucose (UA) Urine Ketones Urine Blood Urine Nitrite Urine Bilirubin Urine Urobilinogen Ur Leukocyte Esterase Imaging - Results Chest X-ray: Report Reviewed (COPD) X-ray: Report Reviewed (Rt Hip and Pelvis chronic JDJ) Cat Scan: Report Reviewed (Abdomen 12/27/2016; No Renal calculi L1 Endplate compression fracture) EKG: Report Reviewed (Sinus Tcahycardia) Problem List - Problems (1) Compression fracture of L1 lumbar vertebra Assessment/Plan: Patient present L1 radiculopathy with Ct shows L1 endplate compression fracture , no clinical sign of cord compression, Pain control, Neurosurgery consult, F/U MRI Lumbosacral spine. Code(s): S32.010A - WEDGE COMPRESSION FRACTURE OF FIRST LUMBAR VERTEBRA, INIT Qualifiers: Encounter type: initial encounter Fracture type: closed Qualified Code(s): S32.010A - Wedge compression fracture of first lumbar vertebra, initial encounter for closed fracture (2) Acute on chronic respiratory failure with hypoxia and hypercapnia Assessment/Plan: Cont all home medication atient is on Po prednisone Code(s): J96.21 - ACUTE AND CHRONIC RESPIRATORY FAILURE WITH HYPOXIA J96.22 - ACUTE AND CHRONIC RESPIRATORY FAILURE WITH HYPERCAPNIA (3) Diastolic CHF Assessment/Plan: compeated cont Lasix Code(s): I50.30 - UNSPECIFIED DIASTOLIC (CONGESTIVE) HEART FAILURE Qualifiers : Congestive heart failure chronicity: chronic Qualified Code(s): I50.32 - Chronic diastolic (congestive) heart failure (4) CAD (coronary artery disease) Assessment/Plan: S/P CABG no active issue cont all home medications. Code(s): I25.10 - ATHSCL HEART DISEASE OF [place] CORONARY ARTERY W/O ANG PCTRS Qualifiers: Coronary Disease-Associated Artery/Lesion type: [place] artery [place] vs. transplanted heart: [place] heart Associated angina: without angina Qualified Code(s): I25.10 - Atherosclerotic heart disease of [place] coronary artery without angina pectoris (5) Hypercholesterolemia Assessment/Plan: Cont Statin F/U Lipid panel Code(s): E78.0 - PURE HYPERCHOLESTEROLEMIA * DO NOT USE * (6) HTN (hypertension) Assessment/Plan: Well controlled cont all home meds. Code(s): I10 - ESSENTIAL (PRIMARY) HYPERTENSION Qualifiers: Hypertension type: essential hypertension Qualified Code(s): I10 - Essential (primary) hypertension (7) Inguinal hernia Assessment/Plan: Left sided Non obstructed as per Ct only fatty tissue Code(s): K40.90 - UNIL INGUINAL HERNIA, W/O OBST OR GANGR, NOT SPCF RECUR
[2017-01-03] MEDS ORDERED: ALPRAZolam 0.25 MG TABLET PO PRN (13:43)
[2017-01-03] MEDS: ATORVASTATIN CA 20 MG TABLET (FP) PO SCH (21:21)
[2017-01-03] MEDS: LIDOCAINE PATCH REMOVAL MC SCH (21:22)
[2017-01-04] MEDS: ALBUTEROL SO4 2.5/IPRATROPIUM 0.5 INH SOL 3 ML VIAL.NEB. NEB SCH ×3 (06:40→18:49)
[2017-01-04 08:39] LABS: ALBUMIN 2.7 g/dl (3.4-5.0); ANION GAP 7 (8-16); CALCIUM 8.7 mg/dL (8.5-10.1); CO2 31 mmol/L (21-32); GLUCOSE,RANDOM 82 mg/dL (74-106)
[2017-01-04 08:43] LABS: ALK PHOS 148 U/L (45-117); BILIRUBIN,TOTAL 0.6 mg/dL (0.2-1.0); CREATININE 0.7 mg/dL (0.7-1.3); SGOT/AST 15 U/L (15-37); SGPT/ALT 14 U/L (12-78); TOT PROT 6.4 g/dl (6.4-8.2)
[2017-01-04 09:45] LABS: BASOPHIL 0.3 % (0-2.0); EOSINOPHIL 1.7 % (0-4.5); MCHC 32.6 g/dl (32.0-35.9); MEAN CELL VOLUME 79.7 fl (80-96); MEAN PLT VOLUME 7.2 fl (7.5-11.1); NEUTROPHILS 78.4 % (42.8-82.8); PLATELET COUNT 404 K/MM3 (134-434); RDW 15.4 % (11.9-15.9); WHITE BLOOD COUNT 10.3 K/mm3 (4.0-10.0)
[2017-01-04] MEDS: FUROSEMIDE 40 MG TABLET (FP) PO SCH (11:23)
[2017-01-04] MEDS: LIDOCAINE 5% TOPICAL PATCH TP SCH (11:23)
[2017-01-04] MEDS: ACETAMINOPHEN 325 MG TABLET (FP) PO PRN ×2 (11:25→20:10)
[2017-01-04] MEDS: oxyCODONE HCL 5 MG TABLET PO PRN ×2 (11:25→20:11)
[2017-01-04] MEDS: CLOPIDOGREL BISULFATE 75 MG TABLET (FP) PO SCH (11:25)
[2017-01-04] MEDS: predniSONE 10 MG TABLET (UD) PO SCH (11:25)
[2017-01-04] MEDS: RAMIPRIL 5 MG CAPSULE (FP) PO SCH (11:25)
[2017-01-04] MEDS: BUDESONIDE/FORMETEROL FUMARATE 80/4.5 mcg INHALER IH SCH ×2 (11:26→22:43)
[2017-01-04] MEDS: ENOXAPARIN NA (PORCINE) 40 MG/0.4 ML DISP.SYRIN SQ SCH (11:26)
--- NOTE | 2017-01-04 13:51 | EKG ---
Test Reason : Blood Pressure : / mmHG Vent. Rate : 128 BPM Atrial Rate : 128 BPM P-R Int : 126 ms QRS Dur : 128 ms QT Int : 310 ms P-R-T Axes : 079 094 064 degrees QTc Int : 452 ms SINUS TACHYCARDIA POSSIBLE LEFT ATRIAL ENLARGEMENT RIGHT BUNDLE BRANCH BLOCK ABNORMAL ECG WHEN COMPARED WITH ECG OF 27-DEC-2016 10:56, NO SIGNIFICANT CHANGE WAS FOUND Confirmed by ELOISA TIRADO MD ([id number]) on 01/04/2017 1:50:37 PM Referred By: Confirmed By:ELOISA TIRADO MD
--- NOTE | 2017-01-04 14:20 | PN ---
Progress Note (short form) - Note Progress Note: NEUROSURGERY CONSULT DICTATED H/O CAD s/p CABG and stent, HTN, COPD, RA, hypercholesterolemia reportedly with back pain and L hip/thigh pain for about 10l days duration; no reported trauma. Has been on steroids frequently Chart reviewed PE: Geneal- occ B wheeze; Neuro- L IP/Quad 3-4- pain limited; Sensation- mild numbness L anrterio thigh CT scans of chest (7-7) and Abd (7-2): L1 mild superior endplate depression of approximately 10-15% centrally with mild superior endplate retropulsion but no canal compromise; osteopenia Not a neurosurgical candidate given relatively mild CT scan pathology of spine Medical management for osteoporosis Added gabapentin Tx d/w pt Consider pain management input if persistent pain DVT prophylaxis
[2017-01-04] MEDS: GABAPENTIN 100 MG CAPSULE (FP) PO SCH ×2 (15:28→22:43)
--- NOTE | 2017-01-04 19:54 | PN ---
Progress Note, Physician Chief Complaint: Lt lower quadrant pain persists History of Present Illness: Admitted with Lt lower quadrent pain No real positive findings - Current Medication List Current Medications: Active Medications Acetaminophen (Tylenol -) 325 mg PO Q4H PRN PRN Reason: PAIN Stop: 01/06/17 00:07 Last Admin: 01/04/17 11:25 Dose: 325 mg Albuterol/Ipratropium (Duoneb -) 1 amp NEB QIDR [facility] Last Admin: 01/04/17 18:49 Dose: 1 amp Alprazolam (Xanax -) 0.5 mg PO Q8H PRN PRN Reason: ANXIETY Last Admin: 01/04/17 11:24 Dose: 0.5 mg Atorvastatin Calcium (Lipitor -) 20 mg PO HS [facility] Last Admin: 01/03/17 21:21 Dose: 20 mg Budesonide/Formoterol Fumarate (Symbicort 80/4.5mcg -) 1 puff IH BID [facility] Last Admin: 01/04/17 11:26 Dose: 1 puff Clopidogrel Bisulfate (Plavix -) 75 mg PO DAILY [facility] Last Admin: 01/04/17 11:25 Dose: 75 mg Enoxaparin Sodium (Lovenox -) 40 mg SQ DAILY [facility] Last Admin: 01/04/17 11:26 Dose: 40 mg Furosemide (Lasix -) 40 mg PO DAILY [facility] Last Admin: 01/04/17 11:23 Dose: 40 mg Gabapentin (Neurontin -) 100 mg PO TID [facility] Last Admin: 01/04/17 15:28 Dose: 100 mg Hydromorphone HCl (Dilaudid Injection -) 1 mg IVPB Q6H PRN PRN Reason: PAIN Lidocaine (Lidoderm Patch -) 1 patch TP DAILY [facility] Last Admin: 01/04/17 11:23 Dose: 1 patch Miscellaneous (Lidoderm Patch Removal) 1 each MC DAILY@2200 [facility] Last Admin: 01/03/17 21:22 Dose: 1 each Ondansetron HCl (Zofran Injection) 4 mg IVPB Q6H PRN PRN Reason: NAUSEA Oxycodone HCl (Roxicodone -) 5 mg PO Q4H PRN PRN Reason: PAIN Last Admin: 01/04/17 11:25 Dose: 5 mg Prednisone (Deltasone -) 10 mg PO DAILY [facility] Last Admin: 01/04/17 11:25 Dose: 10 mg Ramipril (Altace -) 5 mg PO DAILY [facility] Last Admin: 01/04/17 11:25 Dose: 5 mg - Objective Vital Signs: Vital Signs Temperature 97.8 F 01/04/17 16:47 Pulse Rate 105 H 01/04/17 16:47 Respiratory Rate 20 01/04/17 16:47 Blood Pressure 122/69 01/04/17 16:47 O2 Sat by Pulse Oximetry (%) 96 01/04/17 11:24 Constitutional: Yes: Mild Distress Eyes: Yes: WNL HENT: Yes: WNL Neck: Yes: WNL Cardiovascular: Yes: WNL Respiratory: Yes: WNL Gastrointestinal: Yes: WNL ...Rectal Exam: Yes: Deferred Genitourinary: Yes: WNL Edema: No Psychiatric: Yes: WNL Labs: CBC, BMP 01/04/17 06:10 01/04/17 06:10 Assessment/Plan case examined with Dr Humphrey At present advised pain management
--- NOTE | 2017-01-04 20:25 | CONSULT ---
Consult Consult Specialty:: General Surgery Referred by:: Dr. Hendrix Reason for Consultation:: possible left inguinal hernia - History of Present Illness Chief Complaint: left groin pain History of Present Illness: 61yo M with multiple medical problems including CAD s/p CABG and stents on plavix, COPD on home O2 and steroids, chronic back pain, complains of severe left groin pain for at least a week with radiation to the testicle, LLQ, as well as left sacroiliac region and gluteal pain. It hurts when he moves, is not associated with urinary or bowel symptoms, no nausea or vomiting. He has seen his PMD recently, who thought he had possibly a chronically incarcerated inguinal hernia, and has seen a surgeon as an outpatient, who told him he did not appreciate a hernia, and he should go to the ER if the pain got worse. He was in the ER 12/27 and had an abd/pelvis CT showing small LIH with fat only and chronic L1 endplate compression fx. He returned to ER yesterday and was admitted with intractable pain. Has been seen by neurosurgery and has MRI pending, but per NS, CT changes are too mild for surgery. Surgery is consulted to evaluate for left inguinal hernia. - History Source History Provided By: Patient, Medical Record, Caregiver (Dr. Hendrix) Limitations to Obtaining History: No Limitations - Past Medical History Cardio/Vascular: Yes: CAD, HTN, Hyperlipdemia Pulmonary: Yes: COPD, O2 Dependent Musculoskeletal: Yes: Chronic low back pain - Past Surgical History Past Surgical History: Yes: CABG, Stent - Alcohol/Substance Use Hx Alcohol Use: No (quit 1978) History of Substance Use: reports: None - Smoking History Smoking history: Former smoker Have you smoked in the past 12 months: No Aproximately how many cigarettes per day: 0 (1.5ppd x many years) If you are a former smoker, when did you quit?: 2 years Home Medications - Allergies Allergies/Adverse Reactions: Allergies Allergy/AdvReac Type Severity Reaction Status Date / Time Penicillins Allergy Severe Rash Verified 01/02/17 16:34 seafood Allergy Severe Rash Uncoded 01/02/17 16:34 - Home Medications Home Medications: Ambulatory Orders Albuterol 2.5/Ipratropium 0.5 [Duoneb -] 1 amp NEB QIDR amp 05/27/16 Budesonide/Formeterol Fumarate [SYMBICORT 80/4.5mcg -] 1 puff IH BID inhaler Clopidogrel Bisulfate [Plavix -] 75 mg PO DAILY tablet 05/27/16 Furosemide [Lasix -] 40 mg PO DAILY tablet 05/27/16 Prednisone [Deltasone -] 10 mg PO DAILY 08/25/16 Clindamycin [Cleocin -] 300 mg PO TID #21 capsule 12/27/16 Oxycodone HCl/Acetaminophen [Percocet 5-325 mg Tablet] 1 tab PO Q4H #10 tablet MDD 4 12/27/16 Ramipril 5 mg PO DAILY 12/27/16 Simvastatin 40 mg PO DAILY 12/27/16 Family Disease History - Family Disease History Family Disease History: Heart Disease: Grandparent, Other: Brother (Lupus) Review of Systems - Review of Systems Cardiovascular: denies: Chest Pain, Palpitations Respiratory: reports: Exercise Intolerance, SOB on Exertion. denies: Cough Gastrointestinal: reports: Abdominal Pain (LLQ/left groin) Genitourinary: reports: Testicular Pain (left - from groin). denies: Burning, Dysuria Musculoskeletal: reports: Back Pain, Extremity Pain (back of left knee, pain radiating down leg), Joint Pain (posterior left hip - over SI region and gluteus , paraspinal) Integumentary: denies: Bruising, Rash Physical Exam Vital Signs: Vital Signs Temperature 97.8 F 01/04/17 16:47 Pulse Rate 105 H 01/04/17 16:47 Respiratory Rate 20 01/04/17 16:47 Blood Pressure 122/69 01/04/17 16:47 O2 Sat by Pulse Oximetry (%) 96 01/04/17 11:24 Constitutional: Yes: Well Nourished, Anxious, Moderate Distress Eyes: Yes: Conjunctiva Clear, EOM Intact HENT: Yes: Atraumatic, Normocephalic Neck: Yes: Supple, Trachea Midline Cardiovascular: Yes: Regular Rate and Rhythm, Tachycardia (mild) Respiratory: Yes: Regular, On Nasal O2 (2L), Rhonchi (few scattered), SOB on Exertion Gastrointestinal: Yes: Normal Bowel Sounds, Soft, Hernia (possible small impulse at left inguinal ring - extremely uncomfortable with palpation of bilateral inguinal canals, L>R; left cord itself nontender, left testicle itself nontender, groin area and canal very tender). No: Distention, Tenderness (except as exam nears left groin) ...Rectal Exam: Yes: Deferred Renal/: No: CVA Tenderness - Left (tender lower down over left sacroiliac area and gluteus), Scrotal Edema Musculoskeletal: Yes: Back Pain, Muscle Pain Extremities: No: Cool, Cyanosis Edema: No Peripheral Pulses WNL: Yes Integumentary: No: Jaundice, Rash Neurological: Yes: Alert, Oriented Psychiatric: Yes: Alert, Oriented Labs: CBC, BMP 01/04/17 06:10 01/04/17 06:10 Imaging - Results X-ray: Report Reviewed (no acute pathology left hip/pelvis) Cat Scan: Report Reviewed (L1 superior endplate and vertebral body chronic compression deformities), Image Reviewed (R flank hernia with ascending colon ( asymptomatic), small left fat-containing inguinal hernia) Ultrasound: Report Reviewed (no DVT) MRI: Pending (lumbosacral spine) Problem List - Problems (1) Left groin pain Assessment/Plan: incidental finding of right flank hernia - asymptomatic - would not treat small fat-containing left inguinal hernia on CT difficult to appreciate hernia on clinical exam pt's pain pattern, discomfort with exam of bilateral inguinal rings and posterior left pain is not consistent with LIH being the primary source of his discomfort L1 compression fracture, even if chronic, could be related MRI pending poor surgical candidate secondary to comorbidities - would not repair LIH at this time would treat pending MRI results for pain as per neurosurgery consider PT consult, possible orthotics for lower back brace? Thank you for the opportunity to participate in the care of this patient Code(s): R10.32 - LEFT LOWER QUADRANT PAIN (2) Compression fracture of L1 lumbar vertebra Assessment/Plan: neurosurgery consulted MRI pending could be related to pain radiating to left posterior and anterior regions, including groin Code(s): S32.010A - WEDGE COMPRESSION FRACTURE OF FIRST LUMBAR VERTEBRA, INIT Qualifiers: Encounter type: initial encounter Fracture type: closed Qualified Code(s): S32.010A - Wedge compression fracture of first lumbar vertebra, initial encounter for closed fracture (3) CAD (coronary artery disease) Code(s): I25.10 - ATHSCL HEART DISEASE OF [place] CORONARY ARTERY W/O ANG PCTRS Qualifiers: Coronary Disease-Associated Artery/Lesion type: [place] artery [place] vs. transplanted heart: [place] heart Associated angina: without angina Qualified Code(s): I25.10 - Atherosclerotic heart disease of [place] coronary artery without angina pectoris (4) COPD (chronic obstructive pulmonary disease) Assessment/Plan: on home O2, 2L NC - states he doesn't use it all the time severe emphysematous changes with bullae bilaterally on CT Code(s): J44.9 - CHRONIC OBSTRUCTIVE PULMONARY DISEASE, UNSPECIFIED Qualifiers : COPD type: emphysema Emphysema type: unspecified Qualified Code( s): J43.9 - Emphysema, unspecified (5) Diastolic CHF Code(s): I50.30 - UNSPECIFIED DIASTOLIC (CONGESTIVE) HEART FAILURE Qualifiers : Congestive heart failure chronicity: chronic Qualified Code(s): I50.32 - Chronic diastolic (congestive) heart failure (6) HTN (hypertension) Code(s): I10 - ESSENTIAL (PRIMARY) HYPERTENSION Qualifiers: Hypertension type: essential hypertension Qualified Code(s): I10 - Essential (primary) hypertension
[2017-01-04] MEDS: LIDOCAINE PATCH REMOVAL MC SCH (22:43)
[2017-01-04] MEDS: ATORVASTATIN CA 20 MG TABLET (FP) PO SCH (22:43)
[2017-01-05] MEDS: ALBUTEROL SO4 2.5/IPRATROPIUM 0.5 INH SOL 3 ML VIAL.NEB. NEB SCH ×5 (06:12→23:36)
[2017-01-05] MEDS: GABAPENTIN 100 MG CAPSULE (FP) PO SCH ×3 (06:37→22:59)
--- NOTE | 2017-01-05 08:44 | PN ---
Progress Note (short form) - Note Progress Note: NEUROSURGERY Pain improving Sitting up at bedside PE: Geneal- occ B wheeze; Neuro- L IP/Quad 3-4- pain limited; Sensation- mild numbness L anterior thigh CT scans of chest (7-7) and Abd (7-2): L1 mild superior endplate depression of approximately 10-15% centrally with mild superior endplate retropulsion but no canal compromise; osteopenia MRI- small intrathecal 7 mm L2 lesion c/w schwannoma or meningioma; L L2-3 foramenal HNP with L L2-3 root impingement Not a neurosurgical candidate given relatively mild CT scan pathology of spine Added gabapentin, can increase to 300 mg tid Tx d/w pt Consider pain management input if persistent pain DVT prophylaxis D/W Dr Hendrix
--- NOTE | 2017-01-05 09:11 | PN ---
Progress Note, Physician Chief Complaint: Still has pain,but less History of Present Illness: MRI report noted Case discussed in detail with Dr Wen His symptoms are consistent with MRI findings,herniated lumbar disc Advised epidural ing by pain management - Current Medication List Current Medications: Active Medications Acetaminophen (Tylenol -) 325 mg PO Q4H PRN PRN Reason: PAIN Stop: 01/06/17 00:07 Last Admin: 01/04/17 20:10 Dose: 325 mg Albuterol/Ipratropium (Duoneb -) 1 amp NEB QIDR [facility] Last Admin: 01/05/17 06:12 Dose: 1 amp Alprazolam (Xanax -) 0.5 mg PO Q8H PRN PRN Reason: ANXIETY Last Admin: 01/04/17 11:24 Dose: 0.5 mg Atorvastatin Calcium (Lipitor -) 20 mg PO HS [facility] Last Admin: 01/04/17 22:43 Dose: 20 mg Budesonide/Formoterol Fumarate (Symbicort 80/4.5mcg -) 1 puff IH BID [facility] Last Admin: 01/04/17 22:43 Dose: 1 puff Clopidogrel Bisulfate (Plavix -) 75 mg PO DAILY [facility] Last Admin: 01/04/17 11:25 Dose: 75 mg Enoxaparin Sodium (Lovenox -) 40 mg SQ DAILY [facility] Last Admin: 01/04/17 11:26 Dose: 40 mg Furosemide (Lasix -) 40 mg PO DAILY [facility] Last Admin: 01/04/17 11:23 Dose: 40 mg Gabapentin (Neurontin -) 100 mg PO TID [facility] Last Admin: 01/05/17 06:37 Dose: 100 mg Hydromorphone HCl (Dilaudid Injection -) 1 mg IVPB Q6H PRN PRN Reason: PAIN Lidocaine (Lidoderm Patch -) 1 patch TP DAILY [facility] Last Admin: 01/04/17 11:23 Dose: 1 patch Miscellaneous (Lidoderm Patch Removal) 1 each MC DAILY@2200 [facility] Last Admin: 01/04/17 22:43 Dose: 1 each Ondansetron HCl (Zofran Injection) 4 mg IVPB Q6H PRN PRN Reason: NAUSEA Oxycodone HCl (Roxicodone -) 5 mg PO Q4H PRN PRN Reason: PAIN Last Admin: 01/04/17 20:11 Dose: 5 mg Prednisone (Deltasone -) 10 mg PO DAILY [facility] Last Admin: 01/04/17 11:25 Dose: 10 mg Ramipril (Altace -) 5 mg PO DAILY [facility] Last Admin: 01/04/17 11:25 Dose: 5 mg - Objective Vital Signs: Vital Signs Temperature 98.4 F 01/05/17 07:09 Pulse Rate 99 H 01/05/17 07:09 Respiratory Rate 20 01/05/17 07:09 Blood Pressure 128/74 01/05/17 07:09 O2 Sat by Pulse Oximetry (%) 96 01/04/17 21:00 Constitutional: Yes: Mild Distress Eyes: Yes: WNL HENT: Yes: WNL Neck: Yes: WNL Cardiovascular: Yes: WNL Respiratory: Yes: On BiPap, On Nasal O2, Poor Air Entry Gastrointestinal: Yes: Normal Bowel Sounds ...Rectal Exam: Yes: Deferred Genitourinary: Yes: WNL Edema: No Labs: CBC, BMP 01/04/17 06:10 01/04/17 06:10 Assessment/Plan Consult Dr Long pain management
[2017-01-05] MEDS: FUROSEMIDE 40 MG TABLET (FP) PO SCH (09:44)
[2017-01-05] MEDS: predniSONE 10 MG TABLET (UD) PO SCH (09:44)
[2017-01-05] MEDS: CLOPIDOGREL BISULFATE 75 MG TABLET (FP) PO SCH (09:44)
[2017-01-05] MEDS: oxyCODONE HCL 5 MG TABLET PO PRN ×2 (09:44→19:55)
[2017-01-05] MEDS: RAMIPRIL 5 MG CAPSULE (FP) PO SCH (09:44)
[2017-01-05] MEDS: LIDOCAINE 5% TOPICAL PATCH TP SCH (09:44)
[2017-01-05] MEDS: ENOXAPARIN NA (PORCINE) 40 MG/0.4 ML DISP.SYRIN SQ SCH (09:44)
[2017-01-05] MEDS: ACETAMINOPHEN 325 MG TABLET (FP) PO PRN ×2 (09:45→19:55)
--- NOTE | 2017-01-05 09:48 | CONS ---
DATE OF CONSULTATION: 01/04/2017 REQUESTING PHYSICIAN: Yohana Hendrix MD CONSULTING PHYSICIAN: Raul Alicea MD, Neurosurgery. CHIEF COMPLAINT: Left-sided back pain, hip pain, and left knee pain. HISTORY OF PRESENT ILLNESS: The patient is a 61-year-old, right-handed male with a history of coronary artery disease status post CABG and stent placement, hypertension, COPD, rheumatoid arthritis, and hypercholesterolemia, with complaint of left-sided lower back and left-sided leg pain of 10 days' duration. He stated that he did not sustain any recent fall or trauma. He had been coughing quite a lot because of his COPD. He has not done so recently. He denied any fevers or chills or any recent infection. PAST MEDICAL HISTORY: Significant for coronary artery disease, hypertension, COPD, rheumatoid arthritis, hypercholesterolemia. CURRENT MEDICATIONS: Include Lidoderm patch, Zofran, prednisone, Tylenol, Altace, Lovenox, Xanax, DuoNeb, Lipitor, Lasix, Roxicodone, Plavix, and Dilaudid p.r.n. ALLERGIES: There are allergies to PENICILLIN and SEAFOOD. SOCIAL HISTORY: He used to smoke up to 2013, when he quit. He drinks alcohol socially. He is not working. REVIEW OF SYSTEMS: Otherwise negative for major cardiovascular, pulmonary, gastrointestinal, genitourinary, endocrinological, neurological, psychological problems except for the above. PHYSICAL EXAMINATION: Vital Signs: Temperature is 98.4, blood pressure is 120/72 with pulse rate of 100. O2 saturation is 96% on 2 L. HEENT: Examination shows him to be normocephalic, atraumatic, anicteric. Neck: Supple with no carotid bruit. Coronary: Examination demonstrated a regular rhythm. Lungs: Clear bilaterally. Abdomen: Benign. Extremities: Examination shows no signs of DVT. Neurologic: He is awake, alert, and oriented x4. Cranial nerve examination is intact 2-12. Motor examination shows weakness in his left iliopsoas and quadriceps with approx 3 to 4-/5 strength. Sensory examination shows diminished sensation in the left anterior thigh just short of the left knee. Deep tendon reflexes are hyporeflexic throughout. There is no pathologic long-track sign. Gait is not tested for safety reasons. Lower Back: Examination shows left-sided paraspinal muscle spasm near the lumbosacral junction. He has a positive straight leg raise on the left side at about 45 degrees, as well as a positive left-sided Marco maneuver. LABORATORY EXAMINATION: White blood cell count 10,300, hemoglobin is 10.6, and platelet count is 404,000. Serum sodium is 137, potassium is 4.7. BUN and creatinine are 14 and 0.7, respectively. Urinalysis shows trace ketone. CT scan of the abdomen was reviewed from 8 days earlier, which demonstrated from the spine perspective an L1 superior endplate depression of approximately 10% to 15% . The similar finding was re-demonstrated on a CTA of the chest done 2 days earlier. There is mild bulging in the superior cortex of L1 but no significant compromise of the spinal canal. On a CTA of the chest, the patient is noted to have significant emphysematous changes. Lower extremity duplex demonstrated no DVT. IMPRESSION: 1. Superior L1 endplate osteoporotic compression fracture. 2. Left lower extremity radicular pain. 3. Coronary artery disease/hypertension. 4. Rheumatoid arthritis. 5. Hypercholesterolemia. RECOMMENDATIONS: The patient presented with a 10-day history of left-sided back pain and left-sided hip, groin, and left knee pain. He also has associated weakness of the proximal left lower extremity. His admission hip x-ray did not demonstrate acute pathology such as avascular necrosis by report. He may indeed have lumbar radiculopathy even though there is no significant canal compromise or neurological element of compression at this time. Of course, pain management could be considered if the pain persists. I took the liberty of putting the patient on gabapentin 300 mg p.o. t.i.d. for the treatment of his radicular symptoms. Hopefully, the medication and physical therapy can help with symptoms adequately. MRI is indicated to locate any compressive lesions to address his source of pain. I do not see indications for neurosurgical intervention at this time as patient has not undergone much medical treatment, and his condition is improving. All questions were answered. The pros and cons of treatment approaches were discussed. RAUL ALICEA M.D. IRINA/[id number] MTDD
[2017-01-05] MEDS: BUDESONIDE/FORMETEROL FUMARATE 80/4.5 mcg INHALER IH SCH ×2 (09:51→22:04)
--- NOTE | 2017-01-05 16:40 | CONSULT ---
Consult Consult Specialty:: Pain Management Referred by:: Dr. Richter Reason for Consultation:: Back pain - History of Present Illness Chief Complaint: Back pain History of Present Illness: 61 yr old with acute onset of back pain with h/o chronic back pain with multiple medical comorbidities, pain 7/10 radiating left lower extremity with numbness and tingling. medication is helping. no bowel/bladder incontinence. - History Source History Provided By: Patient Limitations to Obtaining History: No Limitations - Past Medical History ACID PURIFIER: No: Alzheimer's, CVA, Dementia, Migraine, Multiple Sclerosis, Peripheral Neuropathy, Parkinson's, Seizure, Syncope, TIA, Vertigo, Other Cardio/Vascular: Yes: CAD, HTN, Hyperlipdemia Pulmonary: Yes: COPD Musculoskeletal: Yes: Chronic low back pain - Past Surgical History Past Surgical History: Yes: CABG, Stent - Alcohol/Substance Use Hx Alcohol Use: No History of Substance Use: reports: None - Smoking History Smoking history: Former smoker Have you smoked in the past 12 months: No Aproximately how many cigarettes per day: 0 If you are a former smoker, when did you quit?: 2 years Home Medications - Allergies Allergies/Adverse Reactions: Allergies Allergy/AdvReac Type Severity Reaction Status Date / Time Penicillins Allergy Severe Rash Verified 01/02/17 16:34 seafood Allergy Severe Rash Uncoded 01/02/17 16:34 - Home Medications Home Medications: Ambulatory Orders Albuterol 2.5/Ipratropium 0.5 [Duoneb -] 1 amp NEB QIDR amp 05/27/16 Budesonide/Formeterol Fumarate [SYMBICORT 80/4.5mcg -] 1 puff IH BID inhaler Clopidogrel Bisulfate [Plavix -] 75 mg PO DAILY tablet 05/27/16 Furosemide [Lasix -] 40 mg PO DAILY tablet 05/27/16 Prednisone [Deltasone -] 10 mg PO DAILY 08/25/16 Clindamycin [Cleocin -] 300 mg PO TID #21 capsule 12/27/16 Oxycodone HCl/Acetaminophen [Percocet 5-325 mg Tablet] 1 tab PO Q4H #10 tablet MDD 4 12/27/16 Ramipril 5 mg PO DAILY 12/27/16 Simvastatin 40 mg PO DAILY 12/27/16 Family Disease History - Family Disease History Family Disease History: Heart Disease: Grandparent, Other: Brother (Lupus) Review of Systems - Review of Systems Constitutional: reports: No Symptoms Eyes: reports: No Symptoms HENT: reports: No Symptoms Neck: reports: No Symptoms Respiratory: reports: Exercise Intolerance, SOB, SOB on Exertion Gastrointestinal: reports: No Symptoms Genitourinary: reports: No Symptoms Musculoskeletal: reports: Back Pain, Decreased ROM Neurological: reports: Numbness Endocrine: reports: No Symptoms Psychiatric: reports: No Symptoms Pain Intensity: 7 Physical Exam Vital Signs: Vital Signs Temperature 97.8 F 01/05/17 15:23 Pulse Rate 106 H 01/05/17 15:23 Respiratory Rate 21 01/05/17 15:23 Blood Pressure 118/63 01/05/17 09:34 O2 Sat by Pulse Oximetry (%) 96 01/04/17 21:00 Constitutional: Yes: Well Nourished Eyes: Yes: WNL HENT: Yes: WNL Neck: Yes: WNL Respiratory: Yes: On Nasal O2 Gastrointestinal: Yes: WNL Musculoskeletal: Yes: Back Pain, Joint Stiffness, Muscle Pain Extremities: Yes: WNL Edema: No Neurological: Yes: WNL, Alert, Oriented, Cran Nerves II-XII Intact, Paresthesia ...Motor Strength: WNL Psychiatric: Yes: WNL Labs: CBC, BMP 01/04/17 06:10 01/04/17 06:10 Current Medications Generic Name Dose Route Start Last Admin Trade Name Freq PRN Reason Stop Dose Admin Acetaminophen 325 mg 01/03/17 00:08 01/05/17 09:45 Tylenol - PO 01/06/17 00:07 325 mg Q4H PRN Administration PAIN Albuterol/Ipratropium 1 amp 01/03/17 00:00 01/05/17 11:00 Duoneb - NEB 1 amp QIDR [facility] Administration Alprazolam 0.5 mg 01/03/17 13:43 01/04/17 11:24 Xanax - PO 0.5 mg Q8H PRN Administration ANXIETY Atorvastatin Calcium 20 mg 01/03/17 22:00 01/04/17 22:43 Lipitor - PO 20 mg HS [facility] Administration Budesonide/Formoterol Fumarate 1 puff 01/03/17 10:00 01/05/17 09:51 Symbicort 80/4.5mcg - IH 1 puff BID [facility] Administration Clopidogrel Bisulfate 75 mg 01/03/17 10:00 01/05/17 09:44 Plavix - PO 75 mg DAILY [facility] Administration Enoxaparin Sodium 40 mg 01/04/17 10:00 01/05/17 09:44 Lovenox - SQ 40 mg DAILY [facility] Administration Furosemide 40 mg 01/03/17 10:00 01/05/17 09:44 Lasix - PO 40 mg DAILY [facility] Administration Gabapentin 100 mg 01/04/17 14:30 01/05/17 14:11 Neurontin - PO 100 mg TID [facility] Administration Hydromorphone HCl 1 mg 01/02/17 23:59 Dilaudid Injection - IVPB Q6H PRN PAIN Lidocaine 1 patch 01/03/17 10:00 01/05/17 09:44 Lidoderm Patch - TP 1 patch DAILY [facility] Administration Miscellaneous 1 each 01/03/17 22:00 01/04/17 22:43 Lidoderm Patch Removal MC 1 each DAILY@2200 [facility] Administration Ondansetron HCl 4 mg 01/02/17 23:59 Zofran Injection IVPB Q6H PRN NAUSEA Oxycodone HCl 5 mg 01/03/17 00:08 01/05/17 09:44 Roxicodone - PO 5 mg Q4H PRN Administration PAIN Prednisone 10 mg 01/03/17 10:00 01/05/17 09:44 Deltasone - PO 10 mg DAILY [facility] Administration Ramipril 5 mg 01/03/17 10:00 01/05/17 09:44 Altace - PO 5 mg DAILY [facility] Administration Imaging - Results X-ray: Pending MRI: Pending Problem List - Problems (1) Lumbar disc herniation Assessment/Plan: Patient will benefit with lumbar epidural but he is on plavix which needs to hold for 7-10 days. he will benefit with outpatient PT. and current medication. Thank for your kind referral Dr. Long [phone] Code(s): M51.26 - OTHER INTERVERTEBRAL DISC DISPLACEMENT, LUMBAR REGION
[2017-01-05] MEDS ORDERED: PT OWN MED DRAWER 7, Y5N ONE (22:06)
[2017-01-05] MEDS: ATORVASTATIN CA 20 MG TABLET (FP) PO SCH (22:59)
[2017-01-05] MEDS: LIDOCAINE PATCH REMOVAL MC SCH (23:00)
[2017-01-06] MEDS: oxyCODONE HCL 5 MG TABLET PO PRN ×2 (00:36→07:32)
[2017-01-06] MEDS: ALBUTEROL SO4 2.5/IPRATROPIUM 0.5 INH SOL 3 ML VIAL.NEB. NEB SCH (06:07)
[2017-01-06] MEDS: GABAPENTIN 100 MG CAPSULE (FP) PO SCH (06:23)
[2017-01-06 07:26] VITALS: BP 145/73; PULSE 102; TEMP 97.2
--- NOTE | 2017-01-06 08:19 | PN ---
Progress Note (short form) - Note Progress Note: NEUROSURGERY Pain 7-810, worse in AM Standing up at bedside PE: Geneal- Lungs clear B; Neuro- L IP/Quad 3-4- pain limited; Sensation- mild numbness L anterior thigh CT scans of chest (7-7) and Abd (7-2): L1 mild superior endplate depression of approximately 10-15% centrally with mild superior endplate retropulsion but no canal compromise; osteopenia MRI- small intrathecal 7 mm L2 lesion c/w benign schwannoma or meningioma; L L2- 3 foramenal HNP with L L2-3 root impingement; L2 fx is chronic Not a neurosurgical candidate as patient has not tried much medical/ conservative tx If worsening neurological condition or pain despite conservative tx could consider surgical intervention Added gabapentin, can increase to 300 mg tid LS MRI with conchita baseline to assess intrathecal lesion needed prior any surgical intervention Pain management input noted Cardiology input for holding ASA/plavix potentially per pain management DVT prophylaxis D/W Dr Hendrix yesterday
--- NOTE | 2017-01-06 09:03 | DS ---
Physical Examination Vital Signs: Vital Signs Temperature 97.2 F L 01/06/17 07:26 Pulse Rate 102 H 01/06/17 07:26 Respiratory Rate 20 01/06/17 07:26 Blood Pressure 145/73 01/06/17 07:26 O2 Sat by Pulse Oximetry (%) 96 01/06/17 07:26 Findings/Remarks: Herniated disc Constitutional: Yes: No Distress Eyes: Yes: WNL HENT: Yes: WNL Neck: Yes: WNL Cardiovascular: Yes: WNL Respiratory: Yes: Poor Air Entry Gastrointestinal: Yes: WNL ...Rectal Exam: Yes: Deferred Renal/: Yes: WNL Musculoskeletal: Yes: WNL Extremities: Yes: WNL Edema: No Neurological: Yes: WNL ...Motor Strength: WNL Psychiatric: Yes: Alert Labs: CBC, BMP 01/04/17 06:10 01/04/17 06:10 Discharge Summary Reason For Visit: COMPRESSION FRACTURE OF L1 LUMBER VERTEB Current Active Problems Compression fracture of L1 lumbar vertebra (Acute) Inguinal hernia (Acute) Intractable pain (Acute) Left groin pain (Acute) Lumbar disc herniation (Acute) Radiculopathy (Acute) Sinus tachycardia (Acute) - Instructions Referrals: Yohana Hendrix MD [Primary Care Provider] - - Home Medications Comprehensive Discharge Medication List: Ambulatory Orders Albuterol 2.5/Ipratropium 0.5 [Duoneb -] 1 amp NEB QIDR amp 05/27/16 Budesonide/Formeterol Fumarate [SYMBICORT 80/4.5mcg -] 1 puff IH BID inhaler Clopidogrel Bisulfate [Plavix -] 75 mg PO DAILY tablet 05/27/16 Furosemide [Lasix -] 40 mg PO DAILY tablet 05/27/16 Prednisone [Deltasone -] 10 mg PO DAILY 08/25/16 Clindamycin [Cleocin -] 300 mg PO TID #21 capsule 12/27/16 Oxycodone HCl/Acetaminophen [Percocet 5-325 mg Tablet] 1 tab PO Q4H #10 tablet MDD 4 12/27/16 Ramipril 5 mg PO DAILY 12/27/16 Simvastatin 40 mg PO DAILY 12/27/16
[2017-01-06] MEDS ORDERED: PT OWN MED DRAWER 7, Y5N ONE (09:41)
[2017-01-06] MEDS: FUROSEMIDE 40 MG TABLET (FP) PO SCH (09:43)
[2017-01-06] MEDS: predniSONE 10 MG TABLET (UD) PO SCH (09:43)
[2017-01-06] MEDS: RAMIPRIL 5 MG CAPSULE (FP) PO SCH (09:43)
[2017-01-06] MEDS: LIDOCAINE 5% TOPICAL PATCH TP SCH (09:43)
[2017-01-06] MEDS: CLOPIDOGREL BISULFATE 75 MG TABLET (FP) PO SCH (09:44)
[2017-01-06] MEDS: ENOXAPARIN NA (PORCINE) 40 MG/0.4 ML DISP.SYRIN SQ SCH (09:44)
[2017-01-06] MEDS: BUDESONIDE/FORMETEROL FUMARATE 80/4.5 mcg INHALER IH SCH (09:44)
== END 2017-01-06 13:17 | disposition home or self-care (01) | DRG 543 ==
LOC: JER 16:32 → JERBED 22:39 → UNDOADMIN 22:51 → JERBED 22:51 → J8W 23:45
PROVIDERS: ADMIT Internal Medicine; ATTEND Internal Medicine
DX: M80.88XA Other osteoporosis with current pathological fracture, vertebra(e), initial encounter for fracture (principal); I50.32 Chronic diastolic (congestive) heart failure; M51.16 Intervertebral disc disorders with radiculopathy, lumbar region; I25.10 Atherosclerotic heart disease of native coronary artery without angina pectoris; Z95.1 Presence of aortocoronary bypass graft; Z95.5 Presence of coronary angioplasty implant and graft; J44.9 Chronic obstructive pulmonary disease, unspecified; I25.2 Old myocardial infarction; F41.9 Anxiety disorder, unspecified; K40.90 Unilateral inguinal hernia, without obstruction or gangrene, not specified as recurrent; I45.10 Unspecified right bundle-branch block; M85.88 Other specified disorders of bone density and structure, other site; Z99.81 Dependence on supplemental oxygen; I11.0 Hypertensive heart disease with heart failure; Z87.891 Personal history of nicotine dependence; R20.2 Paresthesia of skin; D36.10 Benign neoplasm of peripheral nerves and autonomic nervous system, unspecified
CPT/HCPCS: 36415; 71275-TC; 72148-TC; 73523-TC; 80053; 81003; 83036; 85025; 85379; 93005; 93010; 93970-TC; 94640; 99285-25

== ENCOUNTER 2017-10-20 16:44 | Inpatient (IN) | payer OTHER ==
--- NOTE | 2017-10-20 16:47 | PDOC ---
Rapid Medical Evaluation Time Seen by Provider: 10/20/17 16:46 Medical Evaluation: Allergies Allergy/AdvReac Type Severity Reaction Status Date / Time Penicillins Allergy Severe Rash Verified 01/02/17 16:34 seafood Allergy Severe Rash Uncoded 01/02/17 16:34 10/20/17 16:46 I have performed a brief in-person evaluation of this patient. The patient presents with a chief complaint of: hx of HTN, COPD, emphysema, CAD , CHF, having b/l leg swelling, R leg pain "feels like there's a nail in my foot " x 2 days Pertinent physical exam findings: audible wheezing, dyspnea on exertion, tachy to 122 I have ordered the following: labs, ekg, cxr The patient will proceed to the ED for further evaluation. Discharge Disposition - Diagnosis Edema - Referrals - Patient Instructions - Post Discharge Activity
[2017-10-20] MEDS ORDERED: ASPIRIN 81 MG CHEWABLE TABLETS PO ONE (16:50)
--- NOTE | 2017-10-20 18:53 | PDOC ---
History of Present Illness - General Chief Complaint: Edema Stated Complaint: EDEMA Time Seen by Provider: 10/20/17 16:46 - History of Present Illness Initial Comments: 10/20/17 20:12 The patient is a 62 year old male with a history of HTN, HLD, COPD, CHF who presents for evaluation of lower extremity swelling and pain. The patient reports worsening lower extremity edema and pain with difficulty walking over the past few days prompting his presentation to the ED for evaluation. The patient reports that he is on 40mg Lasix for chronic lower extremity edema, but notes that it has been helping to improve his symptoms. He otherwise denies fevers, chills, SOB, chest pain, nausea, vomiting, abdominal pain, or changes with urination or bowel movements. Past History - Past Medical History Allergies/Adverse Reactions: Allergies Allergy/AdvReac Type Severity Reaction Status Date / Time Penicillins Allergy Severe Rash Verified 10/20/17 16:46 seafood Allergy Severe Rash Uncoded 10/20/17 16:46 Home Medications: Ambulatory Orders Albuterol 2.5/Ipratropium 0.5 [Duoneb -] 1 amp NEB QIDR amp 05/27/16 Budesonide/Formeterol Fumarate [SYMBICORT 80/4.5mcg -] 1 puff IH BID inhaler Clopidogrel Bisulfate [Plavix -] 75 mg PO DAILY tablet 05/27/16 Furosemide [Lasix -] 40 mg PO DAILY tablet 05/27/16 predniSONE [Deltasone -] 10 mg PO DAILY 08/25/16 Ramipril 5 mg PO DAILY 12/27/16 Simvastatin 40 mg PO DAILY 12/27/16 Acetaminophen W/ Codeine #3 [Tylenol # 3 -] 1 tab PO BID 10/20/17 Anemia: No Asthma: No Cancer: No Cardiac Disorders: Yes (OK, stent, BYPASS) CVA: No COPD: Yes (2L) CHF: Yes Dementia: No Diabetes: No GI Disorders: No Disorders: No HTN: Yes Hypercholesterolemia: Yes Liver Disease: No Psychiatric Problems: Yes (anxiety) Seizures: No Thyroid Disease: No - Surgical History Abdominal Surgery: No Appendectomy: No Cardiac Surgery: Yes (Stent, cardiaccath) Cholecystectomy: No Lung Surgery: No Neurologic Surgery: No Orthopedic Surgery: Yes (KNEE) - Immunization History Immunization Up to Date: Yes - Suicide/Smoking/Psychosocial Hx Smoking Status: No Smoking History: Former smoker Have you smoked in the past 12 months: No Number of Cigarettes Smoked Daily: 0 If you are a former smoker, when did you quit?: 3YRS Information on smoking cessation initiated: No Hx Alcohol Use: No Drug/Substance Use Hx: No Substance Use Type: None Hx Substance Use Treatment: No Review of Systems - Review of Systems Comments:: 10/20/17 20:15 Constitutional: No fevers, chills, fatigue, malaise HEENT: No Rhinorrhea, nasal congestion, visual changes Cardiovascular: No chest pain, syncope, palpitations, lightheadedness Respiratory: No Cough, SOB, Hemoptysis, Gastrointestinal: No Abdominal pain, Nausea, Vomiting, Constipation, Diarrhea, Melena Genitourinary: No Dysuria, Frequency, Urgency, Hesitancy, Hematuria, Flank pain Musculoskeletal: No Myalgia, arthralgia Skin: Lower Extremity Swelling and Pain. No rashes, itching, bruising, pallor Neurologic: No Headache, Dizziness, Numbness, Weakness, or Tingling Psychiatric: No Hallucinations. No SI or HI *Physical Exam - Vital Signs Last Vital Signs Temp Pulse Resp BP Pulse Ox 98.3 F 122 H 22 140/45 98 10/20/17 16:47 10/20/17 16:47 10/20/17 16:47 10/20/17 16:47 10/20/17 16:47 - Physical Exam Comments: 10/20/17 20:16 General Appearance: Nourished. No Apparent Distress HEENT: EOMI, STEVE. No Pharyngeal Erythema, Tonsillar Exudate, Tonsillar Erythema Neck: No Cervical Lymphadenopathy Respiratory/Chest: Lungs Clear, Normal Breath Sounds. No Crackles, Rales, Rhonchi, Wheezing Cardiovascular: Regular Rhythm, Regular Rate. No Murmur, Gallops, Rubs Gastrointestinal/Abdominal: Normal Bowel Sounds, Soft. No Guarding, Rebound, Tenderness Musculoskeletal: No CVA Tenderness Extremity: 2+ Pitting Edema in the lower extremities right leg worse then the left leg. Tenderness to palpation along the right lower extremity. Normal Capillary Refill Integumentary: Normal Color, Dry, Warm Neurologic: Fully Oriented, Alert, Normal Mood/Affect, Normal Response, Heart Score/ECG Review #1 ECG reviewed & interpreted by me at: 20:19 (Sinus Tachycardia to 116 with a RBBB and Left posterior fascicular block) General ECG Interpretation: Sinus Rhythm, No acute ischemic changes Compared to previous ECG there are: No significant change ED Treatment Course - LABORATORY CBC & Chemistry Diagram: 10/20/17 18:10 10/20/17 18:10 - RADIOLOGY Radiology Studies Ordered: Category Date Time Status DUPLEX VASCUL US-2LEGS [US] Stat Ultrasound 10/20/17 18:52 Ordered Medical Decision Making - Medical Decision Making 10/20/17 20:20 The patient is a 62 year old male with a history of HTN, HLD, COPD, CHF who presents for evaluation of lower extremity swelling and pain. Differential includes but is not limited to: ACS, CHF, DVT, Infectious, Metabolic Derangement. Given the patient's history we will obtain a cbc, cmp, bnp, troponin, chest plain film, ekg, and DVT US to evaluate further for possible etiologies. We will treat in the meantime with lasix here in the ED. We will continue to monitor and reassess. Likely observation admission for chf vs. fluid overload. 10/20/17 22:41 CBC demonstrates an elevated wbc to 12.5. CMP, bnp, troponin, are unremarkable. Chest plain film demonstrates hyperinflation, but no acute pathology as preliminarily read by ER physician. DVT US does not demonstrate evidence of DVT as read by our radiologist. Given the patient's worsening lower extremity edema with pain, we believe he requires observation admission for further management. We discussed the case with Dr. Hendrix who accepted the patient for admission. We discussed the results and plan with the patient who voiced understanding and is agreeable. *DC/Admit/Observation/Transfer Diagnosis at time of Disposition: Edema Qualifiers: Edema type: unspecified Qualified Code(s): R60.9 - Edema, unspecified Diastolic CHF Qualifiers: Heart failure chronicity: unspecified Qualified Code(s): I50.30 - Unspecified diastolic (congestive) heart failure - Discharge Dispostion Condition at time of disposition: Stable Admit: Yes - Referrals Referrals: Yohana Hendrix MD [Primary Care Provider] - - Patient Instructions - Post Discharge Activity
[2017-10-20] MEDS ORDERED: ASPIRIN 81 MG CHEWABLE TABLETS ONE (19:02)
--- NOTE | 2017-10-20 19:30 | PDOC ---
Attending Attestation - Resident Resident Name: Moses Mckeon
[2017-10-20] MEDS ORDERED: FUROSEMIDE 40 MG/4 ML INJECTABLE VIAL IVPUSH ONE (19:41)
[2017-10-20] MEDS ORDERED: FUROSEMIDE 40 MG/4 ML INJECTABLE VIAL ONE (19:56)
[2017-10-20 21:51] LABS: BASO % 0.3 % (0-2.0); EOS % 0.3 % (0-4.5); HEMATOCRIT 34.8 % (35.4-49); HEMOGLOBIN 11.5 GM/dL (11.7-16.9); LYMPH % 12.7 % (8-40); MCH 26.9 pg (25.7-33.7); MCHC 32.9 g/dl (32.0-35.9); MEAN CELL VOLUME 81.6 fl (80-96); MONO % 7.5 % (3.8-10.2); NEUT % 79.2 % (42.8-82.8); PLATELET COUNT 469 K/MM3 (134-434); RBC 4.27 M/mm3 (4.00-5.60); RDW 14.9 % (11.9-15.9); WHITE BLOOD COUNT 12.3 K/mm3 (4.0-10.0)
[2017-10-20 22:15] LABS: INR 1.12 (0.82-1.09); PROTHROMBIN TIME (PATIENT) 12.7 SEC (9.7-13.0)
[2017-10-20 22:25] LABS: ALBUMIN 3.1 g/dl (3.4-5.0); ANION GAP 6 (8-16); BILIRUBIN,TOTAL 0.8 mg/dL (0.2-1.0); BLOOD UREA NITROGEN 10 mg/dL (7-18); CALCIUM 8.8 mg/dL (8.5-10.1); CHLORIDE 99 mmol/L (98-107); CO2 31 mmol/L (21-32); CREATININE 0.9 mg/dL (0.7-1.3); GLUCOSE,RANDOM 73 mg/dL (74-106); POTASSIUM 4.5 mmol/L (3.5-5.1); SGOT/AST 19 U/L (15-37); SGPT/ALT 19 U/L (12-78); SODIUM 136 mmol/L (136-145); TOT PROT 7.7 g/dl (6.4-8.2)
[2017-10-20 22:28] LABS: ALK PHOS 160 U/L (45-117); N-TERMINAL BNP 110.88 pg/ml (5-125)
[2017-10-21 01:36] VITALS: BMI 25.2
[2017-10-21] MEDS: ALBUTEROL SO4 0.083% IH SOL 2.5 MG/3 ML VIAL.NEB. NEB PRN ×3 (09:58→20:20)
[2017-10-21] MEDS ORDERED: FUROSEMIDE 100 MG/10 ML INJECTABLE VIAL IVPB SCH (10:00)
[2017-10-21] MEDS ORDERED: ceFAZolin SODIUM 1 GM VIAL IVPB SCH (10:00)
[2017-10-21] MEDS ORDERED: ceFAZolin SODIUM 1 GM VIAL ONE ×2 (10:16→20:55)
[2017-10-21] MEDS ORDERED: DEXTROSE 5%-WATER - 50 ML IVPB ONE ×2 (10:16→20:55)
[2017-10-21] MEDS: FUROSEMIDE 40 MG/4 ML INJECTABLE VIAL IVPB SCH (10:18)
[2017-10-21] MEDS: CEFAZOLIN 1 GM in DEXTROSE 5%-WATER - 50 ML IVPB SCH ×2 (10:18→21:48)
[2017-10-21] MEDS: RAMIPRIL 5 MG CAPSULE (FP) PO SCH (10:18)
[2017-10-21] MEDS: HYDROCORTISONE SOD SUCCINATE 100 MG/2 ML VIAL IVPB SCH ×2 (10:18→17:10)
--- NOTE | 2017-10-21 10:39 | HP ---
DATE OF ADMISSION: 10/21/2017 This is a 62-year-old male known to have COPD, CHF, coronary artery disease, diabetes, and arthritis. Came to the emergency room yesterday with complaints of short of breath, right leg swelling, and inability to walk. All the symptoms are getting progressively worse. He had multiple admissions in the past, coronary artery bypass graft which was done about 4 years ago. He lives alone, has grown-up children. ALLERGIES: No known allergies. SOCIAL HISTORY: Not a smoker now. PHYSICAL EXAMINATION: General: At present, he is awake and talking, in severe distress. Vital Signs: Blood pressure is 120/70, temperature 98, pulse 106, respirations 20. HEENT: Unremarkable. Lungs: Bilateral wheeze present. Air entry is poor. Heart: S1, S2 normal. No S3 or S4. Abdomen: Soft. Musculoskeletal: There is tenderness all over the body. Right leg is swollen. There is no calf tenderness. Neurological: Examination is grossly normal. Chest x-ray negative. DVT studies negative. LABORATORY REPORTS: WBC 13.3, hemoglobin 11.5. Chemistry: Electrolytes are normal. Blood sugar 73. B peptide is normal, 110. IMPRESSION: 1. Acute exacerbation of chronic obstructive pulmonary disease. 2. Congestive heart failure. 3. Exacerbation of arthritis. PLAN: IV steroids, rheumatology consult to Dr. Larson, continue his present medications. Will follow. ARACELY JIMENEZ M.D. [id number]
--- NOTE | 2017-10-21 12:58 | EKG ---
Test Reason : Blood Pressure : / mmHG Vent. Rate : 116 BPM Atrial Rate : 116 BPM P-R Int : 140 ms QRS Dur : 126 ms QT Int : 354 ms P-R-T Axes : 113 123 095 degrees QTc Int : 492 ms SUSPECT ARM LEAD REVERSAL, INTERPRETATION ASSUMES NO REVERSAL SINUS TACHYCARDIA RIGHT BUNDLE BRANCH BLOCK LEFT POSTERIOR FASCICULAR BLOCK BIFASCICULAR BLOCK ABNORMAL ECG WHEN COMPARED WITH ECG OF 02-JAN-2017 16:50, NO SIGNIFICANT CHANGE WAS FOUND Confirmed by ARABELLA PIZANO MD ([id number]) on 10/21/2017 12:58:21 PM Referred By: Confirmed By:ARABELLA PIZANO MD
[2017-10-21] MEDS: ACETAMINOPHEN 325 MG TABLET (FP) PO PRN ×2 (13:12→17:09)
[2017-10-21] MEDS: oxyCODONE HCL 5 MG TABLET PO PRN ×2 (13:12→17:09)
[2017-10-21] MEDS: ATORVASTATIN CA 20 MG TABLET (FP) PO SCH (21:48)
[2017-10-22] MEDS: HYDROCORTISONE SOD SUCCINATE 100 MG/2 ML VIAL IVPB SCH ×3 (01:05→18:20)
[2017-10-22] MEDS: oxyCODONE HCL 5 MG TABLET PO PRN (01:05)
[2017-10-22] MEDS: ACETAMINOPHEN 325 MG TABLET (FP) PO PRN (01:06)
[2017-10-22] MEDS: ALBUTEROL SO4 0.083% IH SOL 2.5 MG/3 ML VIAL.NEB. NEB PRN ×3 (07:50→23:17)
--- NOTE | 2017-10-22 09:09 | PN ---
Progress Note, Physician Chief Complaint: SOB better History of Present Illness: Admitted with SOB and difficulty in walking SOB better,Rt calf pain and tenderness persists - Current Medication List Current Medications: Active Medications Acetaminophen (Tylenol -) 650 mg PO Q4H PRN PRN Reason: PAIN LEVEL 6-10 Stop: 10/24/17 11:48 Last Admin: 10/22/17 01:06 Dose: 650 mg Albuterol Sulfate (Ventolin 0.083% Nebulizer Soln -) 1 amp NEB Q4H PRN PRN Reason: SHORT OF BREATH/WHEEZING Last Admin: 10/21/17 20:20 Dose: 1 amp Atorvastatin Calcium (Lipitor -) 20 mg PO HS [facility] Last Admin: 10/21/17 21:48 Dose: 20 mg Clopidogrel Bisulfate (Plavix -) 75 mg PO DAILY [facility] Furosemide (Lasix Injection -) 80 mg IVPB DAILY [facility] Last Admin: 10/21/17 10:18 Dose: 80 mg Hydrocortisone Sodium Succinate (Solu-Cortef -) 100 mg IVPB Q8H [facility] Last Admin: 10/22/17 01:05 Dose: 100 mg Cefazolin Sodium 1 gm/ (Dextrose) 50 mls @ 100 mls/hr IVPB BID [facility] Last Admin: 10/21/17 21:48 Dose: 100 mls/hr Oxycodone HCl (Roxicodone -) 10 mg PO Q4H PRN PRN Reason: PAIN LEVEL 6-10 Last Admin: 10/22/17 01:05 Dose: 10 mg Ramipril (Altace -) 5 mg PO DAILY [facility] Last Admin: 10/21/17 10:18 Dose: 5 mg - Objective Vital Signs: Vital Signs Temperature 98.1 F 10/22/17 08:29 Pulse Rate 108 H 10/22/17 08:29 Respiratory Rate 20 10/22/17 08:29 Blood Pressure 130/69 10/22/17 08:29 O2 Sat by Pulse Oximetry (%) 98 10/21/17 21:00 Constitutional: Yes: Mild Distress Eyes: Yes: WNL HENT: Yes: WNL, Other Cardiovascular: Yes: WNL Respiratory: Yes: On Nasal O2 Gastrointestinal: Yes: WNL ...Rectal Exam: Yes: Deferred Genitourinary: Yes: WNL Musculoskeletal: Yes: Muscle Pain Extremities: Yes: Calf Tenderness Edema: No Integumentary: Yes: WNL Neurological: Yes: Alert Labs: CBC, BMP 10/20/17 18:10 10/20/17 18:10 INR, PTT INR 1.12 (0.82-1.09) 10/20/17 18:10 Assessment/Plan DC percoset Tylenol #3 for pain
[2017-10-22] MEDS ORDERED: ceFAZolin SODIUM 1 GM VIAL ONE ×2 (11:32→21:34)
[2017-10-22] MEDS ORDERED: DEXTROSE 5%-WATER - 50 ML IVPB ONE ×2 (11:33→21:35)
[2017-10-22] MEDS: CEFAZOLIN 1 GM in DEXTROSE 5%-WATER - 50 ML IVPB SCH ×2 (11:36→21:59)
[2017-10-22] MEDS: RAMIPRIL 5 MG CAPSULE (FP) PO SCH (11:36)
[2017-10-22] MEDS: FUROSEMIDE 40 MG/4 ML INJECTABLE VIAL IVPB SCH (11:36)
[2017-10-22] MEDS: CLOPIDOGREL BISULFATE 75 MG TABLET (FP) PO SCH (11:36)
[2017-10-22] MEDS: ACETAMINOPHEN WITH CODEINE 300MG/30MG TABLET PO PRN (14:51)
--- NOTE | 2017-10-22 16:39 | CONSULT ---
Consult Consult Specialty:: Rheumatology - History of Present Illness History of Present Illness: 62 year old male with a history of HTN, HLD, COPD, chronic low back paion, coronary artery disease (s/p CABG), CHF and rheumatoid arthritis, admitted with pain and edema and pain in lower limbs. The patient has history of sero-positive rheumatoid arthritis since 2005. I saw him once in my office in 2007, at that time he had very active disease, however he could not follow-up with me due to insurance problems. Apparently he did not follow-up with other rheumatologists and was not treated with DMARDs. The patient has been coping with the pain, however in the last few months he has had progression of pain in knees and hands and difficulty in walking. The pain is accompanied by 1 hour morning stiffness. - History Source History Provided By: Patient, Medical Record - Past Medical History Cardio/Vascular: Yes: CAD, HTN, Hyperlipdemia Pulmonary: Yes: COPD Musculoskeletal: Yes: Chronic low back pain Rheumatology: Yes: Rheumatoid Arthritis - Past Surgical History Past Surgical History: Yes: CABG, Stent - Alcohol/Substance Use Hx Alcohol Use: No History of Substance Use: reports: None - Smoking History Smoking history: Former smoker Have you smoked in the past 12 months: No Aproximately how many cigarettes per day: 0 If you are a former smoker, when did you quit?: 3YRS Home Medications - Allergies Allergies/Adverse Reactions: Allergies Allergy/AdvReac Type Severity Reaction Status Date / Time Penicillins Allergy Severe Rash Verified 10/20/17 16:46 seafood Allergy Severe Rash Uncoded 10/20/17 16:46 - Home Medications Home Medications: Ambulatory Orders Albuterol 2.5/Ipratropium 0.5 [Duoneb -] 1 amp NEB QIDR amp 05/27/16 Budesonide/Formeterol Fumarate [SYMBICORT 80/4.5mcg -] 1 puff IH BID inhaler Clopidogrel Bisulfate [Plavix -] 75 mg PO DAILY tablet 05/27/16 Furosemide [Lasix -] 40 mg PO DAILY tablet 05/27/16 predniSONE [Deltasone -] 10 mg PO DAILY 08/25/16 Ramipril 5 mg PO DAILY 12/27/16 Simvastatin 40 mg PO DAILY 12/27/16 Acetaminophen W/ Codeine #3 [Tylenol # 3 -] 1 tab PO BID 10/20/17 Family Disease History - Family Disease History Family Disease History: Heart Disease: Grandparent, Other: Brother (Lupus) Review of Systems - Review of Systems Constitutional: reports: Malaise Eyes: reports: No Symptoms HENT: reports: No Symptoms Neck: reports: No Symptoms Cardiovascular: reports: Shortness of Breath Respiratory: reports: SOB Gastrointestinal: reports: No Symptoms Musculoskeletal: reports: Other (See HPI) Physical Exam Vital Signs: Vital Signs Temperature 97.8 F 10/22/17 15:23 Pulse Rate 116 H 10/22/17 15:23 Respiratory Rate 20 10/22/17 15:23 Blood Pressure 110/60 10/22/17 15:23 O2 Sat by Pulse Oximetry (%) 98 10/22/17 09:00 Constitutional: Yes: Moderate Distress Eyes: Yes: WNL HENT: Yes: WNL Neck: Yes: WNL Cardiovascular: Yes: WNL Respiratory: Yes: Rales Gastrointestinal: Yes: WNL Musculoskeletal: Yes: Other (15 swollen joints (Swelling of both wrists, in the right hand swelling of the 2nd, 3rd and 5th MCPs and 1st, 2nd and 3rd PIPs. In the left hand swelling of the 2nd MPC and all PIPs. Both knees were swollen)) Labs: CBC, BMP 10/20/17 18:10 10/20/17 18:10 Problem List - Problems (1) Rheumatoid arthritis Assessment/Plan: Sero-positive rheumatoid arthritis, disease very active/ As the patient has significant COPD, and CHF, he is not candidate for Methotrextae of biological DMARDs. Plan: X rays hands and kenes. Start Sulfasalazine 500 gm PO BID for 1 week, then 1 gr BID. Code(s): M06.9 - RHEUMATOID ARTHRITIS, UNSPECIFIED (2) Rheumatoid arthritis involving ankle with positive rheumatoid factor Code(s): M05.779 - RHEU ARTHRIT W RHEU FACTOR OF UNSP ANK/FT W/O ORG/SYS INVOLV (3) Rheumatoid arthritis of multiple sites without organ or system involvement with positive rheumatoid factor Code(s): M05.79 - RHEU ARTHRITIS W RHEU FACTOR MULT SITE W/O ORG/SYS INVOLV
[2017-10-22] MEDS: ATORVASTATIN CA 20 MG TABLET (FP) PO SCH (21:59)
[2017-10-23] MEDS: HYDROCORTISONE SOD SUCCINATE 100 MG/2 ML VIAL IVPB SCH (01:40)
[2017-10-23 06:51] LABS: HEMATOCRIT 32.7 % (35.4-49); HEMOGLOBIN 11.1 GM/dL (11.7-16.9); MCH 27.6 pg (25.7-33.7); MCHC 33.9 g/dl (32.0-35.9); MEAN CELL VOLUME 81.4 fl (80-96); MEAN PLT VOLUME 6.9 fl (7.5-11.1); PLATELET COUNT 471 K/MM3 (134-434); RBC 4.02 M/mm3 (4.00-5.60); RDW 14.5 % (11.9-15.9); WHITE BLOOD COUNT 16.7 K/mm3 (4.0-10.0)
[2017-10-23] MEDS: ACETAMINOPHEN WITH CODEINE 300MG/30MG TABLET PO PRN ×2 (07:07→17:29)
[2017-10-23 07:20] LABS: ALBUMIN 2.7 g/dl (3.4-5.0); ANION GAP 3 (8-16); BLOOD UREA NITROGEN 19 mg/dL (7-18); CALCIUM 8.8 mg/dL (8.5-10.1); CHLORIDE 97 mmol/L (98-107); CO2 36 mmol/L (21-32); GLUCOSE,RANDOM 114 mg/dL (74-106); POTASSIUM 4.6 mmol/L (3.5-5.1); SODIUM 136 mmol/L (136-145)
[2017-10-23 07:31] LABS: ALK PHOS 134 U/L (45-117); BILIRUBIN,TOTAL 0.4 mg/dL (0.2-1.0); CREATININE 0.9 mg/dL (0.7-1.3); SGOT/AST 15 U/L (15-37); SGPT/ALT 13 U/L (12-78); TOT PROT 7.2 g/dl (6.4-8.2)
[2017-10-23] MEDS: ALBUTEROL SO4 0.083% IH SOL 2.5 MG/3 ML VIAL.NEB. NEB PRN ×2 (08:30→20:05)
--- NOTE | 2017-10-23 08:44 | PN ---
Progress Note, Physician Chief Complaint: Feels better - Current Medication List Current Medications: Active Medications Acetaminophen (Tylenol -) 650 mg PO Q4H PRN PRN Reason: PAIN LEVEL 6-10 Stop: 10/24/17 11:48 Last Admin: 10/22/17 01:06 Dose: 650 mg Acetaminophen/Codeine Phosphate (Tylenol # 3 -) 2 tab PO Q4H PRN PRN Reason: PAIN LEVEL 4 - 6 Last Admin: 10/23/17 07:07 Dose: 2 tab Albuterol Sulfate (Ventolin 0.083% Nebulizer Soln -) 1 amp NEB Q4H PRN PRN Reason: SHORT OF BREATH/WHEEZING Last Admin: 10/23/17 08:30 Dose: 1 amp Atorvastatin Calcium (Lipitor -) 20 mg PO HS [facility] Last Admin: 10/22/17 21:59 Dose: 20 mg Clopidogrel Bisulfate (Plavix -) 75 mg PO DAILY [facility] Last Admin: 10/22/17 11:36 Dose: 75 mg Furosemide (Lasix Injection -) 80 mg IVPB DAILY [facility] Last Admin: 10/22/17 11:36 Dose: 80 mg Cefazolin Sodium 1 gm/ (Dextrose) 50 mls @ 100 mls/hr IVPB BID [facility] Last Admin: 10/22/17 21:59 Dose: 100 mls/hr Methylprednisolone Sodium Succinate (Solu-Medrol -) 40 mg IVPUSH Q8H-IV [facility] Ramipril (Altace -) 5 mg PO DAILY [facility] Last Admin: 10/22/17 11:36 Dose: 5 mg Sulfasalazine (Azulfidine En-Tabs -) 500 mg PO BID [facility] Last Admin: 10/22/17 21:59 Dose: 500 mg - Objective Vital Signs: Vital Signs Temperature 97.7 F 10/23/17 06:46 Pulse Rate 99 H 10/23/17 06:46 Respiratory Rate 19 10/23/17 06:46 Blood Pressure 100/60 10/23/17 06:46 O2 Sat by Pulse Oximetry (%) 98 10/22/17 21:00 Constitutional: Yes: No Distress Eyes: Yes: WNL HENT: Yes: WNL Neck: Yes: WNL Cardiovascular: Yes: WNL Respiratory: Yes: WNL, On Nasal O2 Gastrointestinal: Yes: WNL ...Rectal Exam: Yes: Deferred Edema: LLE: 1+, RLE: 1+ Neurological: Yes: Alert Psychiatric: Yes: Alert Labs: CBC, BMP 10/23/17 06:27 10/23/17 06:27 INR, PTT INR 1.12 (0.82-1.09) 10/20/17 18:10 Assessment/Plan reduce IV steroids
[2017-10-23] MEDS ORDERED: DEXTROSE 5%-WATER - 50 ML IVPB ONE ×2 (09:50→20:47)
[2017-10-23] MEDS ORDERED: ceFAZolin SODIUM 1 GM VIAL ONE ×2 (09:50→20:46)
[2017-10-23] MEDS: CEFAZOLIN 1 GM in DEXTROSE 5%-WATER - 50 ML IVPB SCH ×2 (10:17→21:22)
[2017-10-23] MEDS: CLOPIDOGREL BISULFATE 75 MG TABLET (FP) PO SCH (10:21)
[2017-10-23] MEDS: RAMIPRIL 5 MG CAPSULE (FP) PO SCH (10:25)
[2017-10-23] MEDS: methylPREDNISolone NA SUCC 40 MG/1 ML VIAL IVPUSH SCH ×2 (10:32→17:29)
[2017-10-23] MEDS: FUROSEMIDE 40 MG/4 ML INJECTABLE VIAL IVPB SCH (10:40)
[2017-10-23] MEDS: ATORVASTATIN CA 20 MG TABLET (FP) PO SCH (21:20)
[2017-10-24] MEDS: methylPREDNISolone NA SUCC 40 MG/1 ML VIAL IVPUSH SCH ×3 (02:16→17:21)
[2017-10-24] MEDS: ALBUTEROL SO4 0.083% IH SOL 2.5 MG/3 ML VIAL.NEB. NEB PRN ×4 (02:52→23:19)
[2017-10-24 09:41] LABS: URINE APPEARANCE CLEAR; URINE BILIRUBIN NEGATIVE (<2.0 mg/dL); URINE BLOOD NEGATIVE (NEGATIVE); URINE COLOR AMBER; URINE GLUCOSE (UA) NEGATIVE (NEGATIVE); URINE KETONE NEGATIVE (NEGATIVE); URINE LEUK ESTERASE NEGATIVE (NEGATIVE); URINE NITRITE NEGATIVE (NEGATIVE); URINE PROTEIN NEGATIVE (NEGATIVE); URINE UROBILINOGEN 4.0 E.U/dl mg/dL (0.2-1.0)
--- NOTE | 2017-10-24 10:13 | PN ---
Progress Note, Physician Chief Complaint: Patient still c/o Rt knee and calf pain , less SOB - Current Medication List Current Medications: Active Medications Acetaminophen (Tylenol -) 650 mg PO Q4H PRN PRN Reason: PAIN LEVEL 6-10 Stop: 10/24/17 11:48 Last Admin: 10/22/17 01:06 Dose: 650 mg Acetaminophen/Codeine Phosphate (Tylenol # 3 -) 2 tab PO Q4H PRN PRN Reason: PAIN LEVEL 4 - 6 Last Admin: 10/23/17 17:29 Dose: 2 tab Albuterol Sulfate (Ventolin 0.083% Nebulizer Soln -) 1 amp NEB Q4H PRN PRN Reason: SHORT OF BREATH/WHEEZING Last Admin: 10/24/17 02:52 Dose: 1 amp Atorvastatin Calcium (Lipitor -) 20 mg PO HS [facility] Last Admin: 10/23/17 21:20 Dose: 20 mg Clopidogrel Bisulfate (Plavix -) 75 mg PO DAILY [facility] Last Admin: 10/23/17 10:21 Dose: 75 mg Furosemide (Lasix Injection -) 80 mg IVPB DAILY [facility] Last Admin: 10/23/17 10:40 Dose: 80 mg Cefazolin Sodium 1 gm/ (Dextrose) 50 mls @ 100 mls/hr IVPB BID [facility] Last Admin: 10/23/17 21:22 Dose: 100 mls/hr Methylprednisolone Sodium Succinate (Solu-Medrol -) 40 mg IVPUSH Q8H-IV [facility] Last Admin: 10/24/17 02:16 Dose: 40 mg Ramipril (Altace -) 5 mg PO DAILY [facility] Last Admin: 10/23/17 10:25 Dose: 5 mg Sulfasalazine (Azulfidine En-Tabs -) 500 mg PO BID [facility] Last Admin: 10/23/17 21:26 Dose: 500 mg - Objective Vital Signs: Vital Signs Temperature 98.2 F 10/24/17 06:00 Pulse Rate 90 10/24/17 06:00 Respiratory Rate 20 10/24/17 06:00 Blood Pressure 106/65 10/24/17 06:00 O2 Sat by Pulse Oximetry (%) 95 10/23/17 21:00 Labs: CBC, BMP 10/23/17 06:27 10/23/17 06:27 INR, PTT INR 1.12 (0.82-1.09) 10/20/17 18:10
--- NOTE | 2017-10-24 10:20 | PN ---
Progress Note, Physician Chief Complaint: Patient still c/o Rt knee and calf pain , less SOB History of Present Illness: 62 yrs old man multiple Co-morbidities including advanced COPD on Home O2, HTN, CAD s/p CABG, RA non complint with meds due to insurance issue, lives alone admitted with worsening joints swelling and pain with SOB so far w/u consistent with RA flare and imagong shows Rt LE Hematoma. - Current Medication List Current Medications: Active Medications Acetaminophen (Tylenol -) 650 mg PO Q4H PRN PRN Reason: PAIN LEVEL 6-10 Stop: 10/24/17 11:48 Last Admin: 10/22/17 01:06 Dose: 650 mg Acetaminophen/Codeine Phosphate (Tylenol # 3 -) 2 tab PO Q4H PRN PRN Reason: PAIN LEVEL 4 - 6 Last Admin: 10/23/17 17:29 Dose: 2 tab Albuterol Sulfate (Ventolin 0.083% Nebulizer Soln -) 1 amp NEB Q4H PRN PRN Reason: SHORT OF BREATH/WHEEZING Last Admin: 10/24/17 02:52 Dose: 1 amp Atorvastatin Calcium (Lipitor -) 20 mg PO HS [facility] Last Admin: 10/23/17 21:20 Dose: 20 mg Clopidogrel Bisulfate (Plavix -) 75 mg PO DAILY [facility] Last Admin: 10/23/17 10:21 Dose: 75 mg Furosemide (Lasix Injection -) 80 mg IVPB DAILY [facility] Last Admin: 10/23/17 10:40 Dose: 80 mg Cefazolin Sodium 1 gm/ (Dextrose) 50 mls @ 100 mls/hr IVPB BID [facility] Last Admin: 10/23/17 21:22 Dose: 100 mls/hr Methylprednisolone Sodium Succinate (Solu-Medrol -) 40 mg IVPUSH Q8H-IV [facility] Last Admin: 10/24/17 02:16 Dose: 40 mg Ramipril (Altace -) 5 mg PO DAILY [facility] Last Admin: 10/23/17 10:25 Dose: 5 mg Sulfasalazine (Azulfidine En-Tabs -) 500 mg PO BID [facility] Last Admin: 10/23/17 21:26 Dose: 500 mg - Objective Vital Signs: Vital Signs Temperature 98.2 F 10/24/17 06:00 Pulse Rate 90 10/24/17 06:00 Respiratory Rate 20 10/24/17 06:00 Blood Pressure 106/65 10/24/17 06:00 O2 Sat by Pulse Oximetry (%) 95 10/23/17 21:00 Middle aged man sick looking c/o Rt calf pain HEENT: Mm moist, no anemia, PERRLA EOMI NECK: No JVd No Bruit CHEST: CTA B/L CVS: S1S2 r no m/g/r ABD: No distention non tender Bs + EXT: Rt ankle, knee swelling + Tender, Rt Calf tenderness and swelling [employer]: [employer] non focal Labs: CBC, BMP 10/23/17 06:27 10/23/17 06:27 INR, PTT INR 1.12 (0.82-1.09) 10/20/17 18:10 - ....Imaging Other: Report Reviewed (LE Doppler Suspected Rt Calf hematoma) Problem List - Problems (1) Rheumatoid arthritis involving ankle with positive rheumatoid factor Assessment/Plan: admitted with RA flare evaluted by Rhematologist will cont current management. Code(s): M05.779 - RHEU ARTHRIT W RHEU FACTOR OF UNSP ANK/FT W/O ORG/SYS INVOLV Qualifiers: Laterality: bilateral Qualified Code(s): M05.771 - Rheumatoid arthritis with rheumatoid factor of right ankle and foot without organ or systems involvement; M05.772 - Rheumatoid arthritis with rheumatoid factor of left ankle and foot without organ or systems involvement; M05.772 - Rheumatoid arthritis with rheumatoid factor of left ankle and foot without organ or systems involvement; M05.772 - Rheumatoid arthritis with rheumatoid factor of left ankle and foot without organ or systems involvement; M05.772 - Rheumatoid arthritis with rheumatoid factor of left ankle and foot without organ or systems involvement (2) Acute on chronic respiratory failure with hypoxemia Assessment/Plan: Advance COPD worsening SOB improving with Nebs and V Steroids Code(s): J96.21 - ACUTE AND CHRONIC RESPIRATORY FAILURE WITH HYPOXIA (3) History of coronary artery bypass graft Assessment/Plan: At present compensated denies any chest pain no acute St T changes Code(s): Z95.1 - PRESENCE OF AORTOCORONARY BYPASS GRAFT (4) HTN (hypertension) Assessment/Plan: Well controlled cont Home meds Code(s): I10 - ESSENTIAL (PRIMARY) HYPERTENSION Qualifiers: Hypertension type: essential hypertension Qualified Code(s): I10 - Essential (primary) hypertension (5) Chronic pain Assessment/Plan: Optimize pain control Code(s): G89.29 - OTHER CHRONIC PAIN (6) Lower extremity edema Assessment/Plan: Rt LE swelling ultrasound suspected hematoma will F/U with Vascular consult Code(s): R60.0 - LOCALIZED EDEMA
[2017-10-24] MEDS ORDERED: ceFAZolin SODIUM 1 GM VIAL ONE (11:05)
[2017-10-24] MEDS ORDERED: PT OWN MED DRAWER 7, Y5N ONE ×2 (11:05→17:10)
[2017-10-24] MEDS: CLOPIDOGREL BISULFATE 75 MG TABLET (FP) PO SCH (11:08)
[2017-10-24] MEDS: RAMIPRIL 5 MG CAPSULE (FP) PO SCH (11:08)
[2017-10-24] MEDS: CEFAZOLIN 1 GM in DEXTROSE 5%-WATER - 50 ML IVPB SCH ×2 (11:09→23:00)
[2017-10-24] MEDS: FUROSEMIDE 40 MG/4 ML INJECTABLE VIAL IVPB SCH (11:09)
[2017-10-24] MEDS: ACETAMINOPHEN WITH CODEINE 300MG/30MG TABLET PO PRN ×2 (11:23→18:39)
[2017-10-24] MEDS: RANITIDINE HCL 150 MG/10 ML UNIT-DOSE PO SCH (11:43)
[2017-10-24] MEDS: NAPROXEN 250 MG TABLET (FP) PO SCH ×2 (11:43→17:11)
[2017-10-24] MEDS: ATORVASTATIN CA 20 MG TABLET (FP) PO SCH (22:59)
[2017-10-25] MEDS: methylPREDNISolone NA SUCC 40 MG/1 ML VIAL IVPUSH SCH ×2 (02:32→10:16)
[2017-10-25] MEDS: ALBUTEROL SO4 0.083% IH SOL 2.5 MG/3 ML VIAL.NEB. NEB PRN ×2 (07:37→10:40)
--- NOTE | 2017-10-25 08:47 | DS ---
Physical Examination Vital Signs: Vital Signs Temperature 97.8 F 10/25/17 05:30 Pulse Rate 87 10/25/17 05:30 Respiratory Rate 20 10/24/17 21:16 Blood Pressure 120/68 10/25/17 05:30 O2 Sat by Pulse Oximetry (%) 100 10/24/17 21:00 Findings/Remarks: Admitted with exacerbation of br asthma and joint pains Doing well,DC home on PO prednisone Constitutional: Yes: No Distress Eyes: Yes: WNL HENT: Yes: WNL Neck: Yes: WNL Cardiovascular: Yes: WNL Respiratory: Yes: WNL Gastrointestinal: Yes: WNL ...Rectal Exam: Yes: Deferred Renal/: Yes: WNL Breast(s): Yes: WNL Musculoskeletal: Yes: WNL Edema: Yes Edema: RLE: 1+ Neurological: Yes: Alert Psychiatric: Yes: Alert Labs: CBC, BMP 10/23/17 06:27 10/23/17 06:27 Discharge Summary Reason For Visit: CONGESTIVE HEART FAILURE, EDEMA Current Active Problems Chronic pain (Acute) Congestive cardiac failure (Acute) Diastolic CHF (Acute) Edema (Acute) Lower extremity edema (Acute) Rheumatoid arthritis (Acute) Rheumatoid arthritis involving ankle with positive rheumatoid factor (Acute) Rheumatoid arthritis of multiple sites without organ or system involvement with positive rheumatoid factor (Acute) Condition: Stable - Instructions Referrals: Yohana Hendrix MD [Primary Care Provider] - - Home Medications Comprehensive Discharge Medication List: Ambulatory Orders Albuterol 2.5/Ipratropium 0.5 [Duoneb -] 1 amp NEB QIDR amp 05/27/16 Budesonide/Formeterol Fumarate [SYMBICORT 80/4.5mcg -] 1 puff IH BID inhaler Clopidogrel Bisulfate [Plavix -] 75 mg PO DAILY tablet 05/27/16 Furosemide [Lasix -] 40 mg PO DAILY tablet 05/27/16 predniSONE [Deltasone -] 10 mg PO DAILY 08/25/16 Ramipril 5 mg PO DAILY 12/27/16 Simvastatin 40 mg PO DAILY 12/27/16 Acetaminophen W/ Codeine #3 [Tylenol # 3 -] 1 tab PO BID 10/20/17
[2017-10-25 10:05] VITALS: BP 131/74; PULSE 113; TEMP 98.5
[2017-10-25] MEDS ORDERED: PT OWN MED DRAWER 7, Y5N ONE (10:08)
[2017-10-25] MEDS: NAPROXEN 250 MG TABLET (FP) PO SCH (10:12)
[2017-10-25] MEDS: RAMIPRIL 5 MG CAPSULE (FP) PO SCH (10:14)
[2017-10-25] MEDS: CLOPIDOGREL BISULFATE 75 MG TABLET (FP) PO SCH (10:15)
[2017-10-25] MEDS: RANITIDINE HCL 150 MG/10 ML UNIT-DOSE PO SCH (10:15)
[2017-10-25] MEDS: FUROSEMIDE 40 MG/4 ML INJECTABLE VIAL IVPB SCH (10:16)
[2017-10-25] MEDS ORDERED: ceFAZolin SODIUM 1 GM VIAL ONE (11:02)
[2017-10-25] MEDS: CEFAZOLIN 1 GM in DEXTROSE 5%-WATER - 50 ML IVPB SCH (11:32)
== END 2017-10-25 14:38 | disposition home or self-care (01) | DRG 545 ==
LOC: JER 16:44 → JERBED 22:39 → J6S 10-21 00:54 → OBSVTOIN 10-21 09:21
PROVIDERS: ADMIT Internal Medicine; ATTEND Internal Medicine
DX: M05.772 Rheumatoid arthritis with rheumatoid factor of left ankle and foot without organ or systems involvement (principal); J96.21 Acute and chronic respiratory failure with hypoxia; I50.33 Acute on chronic diastolic (congestive) heart failure; I45.2 Bifascicular block; J45.901 Unspecified asthma with (acute) exacerbation; I11.0 Hypertensive heart disease with heart failure; J43.9 Emphysema, unspecified; M05.771 Rheumatoid arthritis with rheumatoid factor of right ankle and foot without organ or systems involvement; I25.10 Atherosclerotic heart disease of native coronary artery without angina pectoris; I25.2 Old myocardial infarction; E78.5 Hyperlipidemia, unspecified; F41.9 Anxiety disorder, unspecified; Z87.891 Personal history of nicotine dependence; Z95.1 Presence of aortocoronary bypass graft; Z91.14 Patient's other noncompliance with medication regimen; M05.79 Rheumatoid arthritis with rheumatoid factor of multiple sites without organ or systems involvement
CPT/HCPCS: 36415; 71046-TC-FY; 73130-TC-LR-FY; 73130-TC-RT-FY; 73562-TC-LT-FY; 73562-TC-RT-FY; 80053; 81003; 82550; 83735; 83880; 84443; 84484; 85025; 85027; 85610; 85651; 93005; 93010; 93970-TC; 94640; 99283-25; 99285-25; G0378

== ENCOUNTER 2017-11-05 20:12 | Inpatient (IN) | payer OTHER ==
--- NOTE | 2017-11-05 20:50 | PDOC ---
Rapid Medical Evaluation Chief Complaint: Wound Time Seen by Provider: 11/05/17 20:45 Medical Evaluation: Allergies Allergy/AdvReac Type Severity Reaction Status Date / Time Penicillins Allergy Severe Rash Verified 10/20/17 16:46 seafood Allergy Severe Rash Uncoded 10/20/17 16:46 11/05/17 20:45 I have performed a brief-in person evaluation of this patient. The patient presents with a chief complaint of:Right leg abscess Rx by Dr. Yohana Hendrix [phone] Hendrix today @1730 hrs and was sent to the ER to have abscess I&D by Dr. Delcid RX: Abscess right leg calf. Needs surgical consult by Dr. Delcid. May need I&D under anesthesia. Pt is on Plavix. Pertinent physical exam findings: Right Calf swelling/erythema/+pain I have ordered the following: US duplex right calf, CBC/cmp/Pt The patient will proceed to the ED for further evaluation. 11/05/17 20:[address] Delcid from triage to ascertain if Dr Delcid has been notified
[2017-11-05 21:21] LABS: BASO % 0.3 % (0-2.0); EOS % 0.5 % (0-4.5); HEMATOCRIT 33.4 % (35.4-49); HEMOGLOBIN 11.1 GM/dL (11.7-16.9); LYMPH % 8.9 % (8-40); MCHC 33.3 g/dl (32.0-35.9); MEAN CELL VOLUME 81.1 fl (80-96); MEAN PLT VOLUME 7.1 fl (7.5-11.1); MONO % 6.7 % (3.8-10.2); NEUT % 83.6 % (42.8-82.8); PLATELET COUNT 391 K/MM3 (134-434); RBC 4.12 M/mm3 (4.00-5.60); RDW 15.3 % (11.9-15.9); WHITE BLOOD COUNT 12.6 K/mm3 (4.0-10.0)
[2017-11-05 21:40] LABS: INR 1.1 (0.82-1.09); PROTHROMBIN TIME (PATIENT) 12.4 SEC (9.7-13.0)
[2017-11-05 21:53] LABS: ALBUMIN 2.9 g/dl (3.4-5.0); ALK PHOS 216 U/L (45-117); ANION GAP 7 (8-16); BILIRUBIN,TOTAL 0.5 mg/dL (0.2-1.0); BLOOD UREA NITROGEN 17 mg/dL (7-18); CALCIUM 8.4 mg/dL (8.5-10.1); CHLORIDE 101 mmol/L (98-107); CO2 29 mmol/L (21-32); CREATININE 0.9 mg/dL (0.7-1.3); GLUCOSE,RANDOM 108 mg/dL (74-106); POTASSIUM 4.2 mmol/L (3.5-5.1); SGOT/AST 33 U/L (15-37); SGPT/ALT 30 U/L (12-78); SODIUM 137 mmol/L (136-145); TOT PROT 6.7 g/dl (6.4-8.2)
[2017-11-06] MEDS ORDERED: CLINDAMYCIN 600MG PREMIX IVPB 600 MG/50 ML BAG IVPB ONE ×2 (00:18→03:02)
--- NOTE | 2017-11-06 00:49 | PDOC ---
History of Present Illness - General History Source: Patient Exam Limitations: No Limitations - History of Present Illness Initial Comments: 11/06/17 01:54 Patient is a 62 year old male with a significant past medical history of HTN, CAD, Hyperlipidemia, COPD Emphysema GOLD stage 4 on Home O2 CAD chronic back pain, who was sent to the ED by his PCP for surgical consult. Patient reports experiencing right calf edema that began earlier this week. He reports going to his PCP for evaluation, who fern puss from his right calf using a needle. Patient reports PCP advised going to the ED to be admitted and be evaluation by surgery to receive an Incision and drainage for his right leg. Denies chest pain, Sob. Denies fevers, chills. Denies fevers, chills. Denies contact with sick individuals, out of state travelling. Denies any other symptoms. Allergies: Seafood. Social History: Former smoker. No alcohol. No illicit drugs. Surgical History: CABG, Stent PMD: Dr. eHndrix, Dr. Delcid <Hao Gifford - Last Filed: 11/06/17 01:54> <Elaine Villela - Last Filed: 11/06/17 06:43> - General Chief Complaint: Wound Stated Complaint: ABCESS ON LEG Time Seen by Provider: 11/05/17 20:45 Past History <Hao Gifford - Last Filed: 11/06/17 01:54> - Past Medical History Anemia: No Asthma: No Cancer: No Cardiac Disorders: Yes (CO, stent, BYPASS) CVA: No COPD: Yes (2L) CHF: Yes Dementia: No Diabetes: No GI Disorders: No Disorders: No HTN: Yes Hypercholesterolemia: Yes Liver Disease: No Psychiatric Problems: Yes (anxiety) Seizures: No Thyroid Disease: No - Surgical History Abdominal Surgery: No Appendectomy: No Cardiac Surgery: Yes (Stent, cardiaccath) Cholecystectomy: No Lung Surgery: No Neurologic Surgery: No Orthopedic Surgery: Yes (KNEE) - Immunization History Immunization Up to Date: Yes - Suicide/Smoking/Psychosocial Hx Smoking Status: No Smoking History: Never smoked Have you smoked in the past 12 months: No Number of Cigarettes Smoked Daily: 0 If you are a former smoker, when did you quit?: 3YRS Information on smoking cessation initiated: No Hx Alcohol Use: No Drug/Substance Use Hx: No Substance Use Type: None Hx Substance Use Treatment: No <VillelaElaine - Last Filed: 11/06/17 06:43> - Past Medical History Allergies/Adverse Reactions: Allergies Allergy/AdvReac Type Severity Reaction Status Date / Time Penicillins Allergy Severe Rash Verified 11/05/17 20:51 seafood Allergy Severe Rash Uncoded 11/05/17 20:51 Home Medications: Ambulatory Orders Albuterol 2.5/Ipratropium 0.5 [Duoneb -] 1 amp NEB QIDR amp 05/27/16 Budesonide/Formeterol Fumarate [SYMBICORT 80/4.5mcg -] 1 puff IH BID inhaler Clopidogrel Bisulfate [Plavix -] 75 mg PO DAILY tablet 05/27/16 Furosemide [Lasix -] 40 mg PO DAILY tablet 05/27/16 predniSONE [Deltasone -] 10 mg PO DAILY 08/25/16 Ramipril 5 mg PO DAILY 12/27/16 Simvastatin 40 mg PO DAILY 12/27/16 Acetaminophen W/ Codeine #3 [Tylenol # 3 -] 1 tab PO BID 10/20/17 Review of Systems - Review of Systems Able to Perform ROS?: Yes Comments:: 11/06/17 01:54 GENERAL/CONSTITUTIONAL: No fever or chills. No weakness. HEAD, EYES, EARS, NOSE AND THROAT: No change in vision. No ear pain or discharge. No sore throat. CARDIOVASCULAR: No chest pain or shortness of breath. RESPIRATORY: No cough, wheezing, or hemoptysis. GASTROINTESTINAL: No nausea, vomiting, diarrhea or constipation. GENITOURINARY: No dysuria, frequency, or change in urination. MUSCULOSKELETAL: +Right calf pain. No neck or back pain. SKIN: No rash NEUROLOGIC: No headache, vertigo, loss of consciousness, or change in strength/ sensation. ENDOCRINE: No increased thirst. No abnormal weight change. HEMATOLOGIC/LYMPHATIC: No anemia, easy bleeding, or history of blood clots. ALLERGIC/IMMUNOLOGIC: No hives or skin allergy. <Hao Gifford - Last Filed: 11/06/17 01:54> *Physical Exam - Vital Signs Last Vital Signs Temp Pulse Resp BP Pulse Ox 97.8 F 122 H 16 101/53 96 11/05/17 20:44 11/05/17 20:44 11/05/17 20:44 11/05/17 20:44 11/05/17 20:44 - Physical Exam Comments: 11/06/17 01:55 GENERAL: Awake, alert, and fully oriented, in no acute distress HEAD: No signs of trauma EYES: PERRLA, EOMI, sclera anicteric, conjunctiva clear ENT: Auricles normal inspection, hearing grossly normal, nares patent, oropharynx clear without exudates. Moist mucosa NECK: Normal ROM, supple, no lymphadenopathy, JVD, or masses LUNGS: Breath sounds equal, clear to auscultation bilaterally. No wheezes, and no crackles HEART: Regular rate and rhythm, normal S1 and S2, no murmurs, rubs or gallops ABDOMEN: Soft, nontender, normoactive bowel sounds. No guarding, no rebound. No masses EXTREMITIES: +Right calf edema. +Right calf tenderness. No redness. +No hematoma Normal range of motion, no edema. No clubbing or cyanosis. No cords, erythema, or tenderness NEUROLOGICAL: Cranial nerves II through XII grossly intact. Normal speech, normal gait SKIN: Warm, Dry, normal turgor, no rashes or lesions noted. <Hao Gifford - Last Filed: 11/06/17 01:54> - Vital Signs Last Vital Signs Temp Pulse Resp BP Pulse Ox 97.8 F 122 H 16 101/53 96 11/05/17 20:44 11/05/17 20:44 11/05/17 20:44 11/05/17 20:44 11/05/17 20:44 <Elaine Villela - Last Filed: 11/06/17 06:43> ED Treatment Course - LABORATORY CBC & Chemistry Diagram: 11/05/17 21:13 11/05/17 21:13 - ADDITIONAL ORDERS Additional order review: Laboratory Results 11/05/17 11/05/17 21:13 21:13 PT with INR 12.40 INR 1.10 Sodium 137 Potassium 4.2 Chloride 101 Carbon Dioxide 29 Anion Gap 7 L BUN 17 Creatinine 0.9 Creat Clearance w eGFR > 60 Random Glucose 108 H Calcium 8.4 L Total Bilirubin 0.5 D AST 33 D ALT 30 D Alkaline Phosphatase 216 H D Total Protein 6.7 Albumin 2.9 L 11/05/17 21:13 RBC 4.12 MCV 81.1 MCHC 33.3 RDW 15.3 MPV 7.1 L Neutrophils % 83.6 H Lymphocytes % 8.9 D Monocytes % 6.7 Eosinophils % 0.5 Basophils % 0.3 <Hao Gifford - Last Filed: 11/06/17 01:54> - LABORATORY CBC & Chemistry Diagram: 11/05/17 21:13 11/05/17 21:13 - ADDITIONAL ORDERS Additional order review: Laboratory Results 11/05/17 11/05/17 21:13 21:13 PT with INR 12.40 INR 1.10 Sodium 137 Potassium 4.2 Chloride 101 Carbon Dioxide 29 Anion Gap 7 L BUN 17 Creatinine 0.9 Creat Clearance w eGFR > 60 Random Glucose 108 H Calcium 8.4 L Total Bilirubin 0.5 D AST 33 D ALT 30 D Alkaline Phosphatase 216 H D Total Protein 6.7 Albumin 2.9 L 11/05/17 21:13 RBC 4.12 MCV 81.1 MCHC 33.3 RDW 15.3 MPV 7.1 L Neutrophils % 83.6 H Lymphocytes % 8.9 D Monocytes % 6.7 Eosinophils % 0.5 Basophils % 0.3 <Elaine Villela - Last Filed: 11/06/17 06:43> Medical Decision Making - Medical Decision Making 11/06/17 06:42 Pt comes with abscess in his calf. Sent by PMD to get it drained by surgery service. Consult placed for surg and pt started on clindamycin as he is PCN allergic. <Elaine Villela - Last Filed: 11/06/17 06:43> *DC/Admit/Observation/Transfer - Attestations Scribe Attestion: 11/06/17 01:55 Documentation prepared by Hao Gifford, acting as medical review specialist for Elaine Villela MD/DO. <Hao Gifford - Last Filed: 11/06/17 01:54> - Discharge Dispostion Decision to Admit order: Yes <Elaine Villela - Last Filed: 11/06/17 06:43> Diagnosis at time of Disposition: Abscess of calf - Discharge Dispostion Condition at time of disposition: Guarded
[2017-11-06] MEDS ORDERED: VANCOMYCIN 1,000 MG in DEXTROSE 5%-WATER - 250 ML IVPB ONE (06:43)
--- NOTE | 2017-11-06 09:25 | HP ---
DATE OF ADMISSION: DATE OF DICTATION: 11/06/2017 HISTORY: This is a 62-year-old male known to have advanced COPD, coronary artery disease, status post who was recently admitted here with exacerbation of bronchial asthma and pneumonia now came to the office with swelling of the right leg. Needle aspiration showed pus so admitted with a diagnosis of abscess right leg. PHYSICAL EXAMINATION: Vital Signs: His blood pressure is 120/80, pulse 100, respirations 20, temperature 98. HEENT: Unremarkable. Neck: Supple. No JVD. Lungs: No wheezing. Heart: S1, S2 normal. No S3 or S4. Abdomen: Soft. Extremities: Right leg, there is tenderness and swelling mostly in the calf area. Neurologic: Grossly normal. LAB REPORTS: WBC 12.6, hemoglobin 11.1. Chemistry and electrolytes are normal. Blood sugar 108. Creatinine 0.9. IMPRESSION: 1. Abscess right calf. 2. Chronic obstructive pulmonary disease. PLAN: IV antibiotics. Surgical consult Dr. Delcid. ARACELY JIMENEZ M.D. [id number]
[2017-11-06] MEDS ORDERED: LIDOCAINE HCL 1%, 10 MG/ML (50 mL VIAL) SQ ONE (11:12)
[2017-11-06] MEDS ORDERED: LIDOCAINE HCL 1%, 10 MG/ML (20ML VIAL) NR ONE (11:35)
[2017-11-06] MEDS: ACETAMINOPHEN WITH CODEINE 300MG/30MG TABLET PO PRN ×2 (11:57→17:33)
--- NOTE | 2017-11-06 12:17 | CONSULT ---
Consult Consult Specialty:: Surgery Referred by:: Simeon - History of Present Illness Chief Complaint: c/O swelling in right leg for one week,. H/O CAD, chronic emphsema, hyperlipidemia, hypertension , oxygen dependent. - History Source History Provided By: Patient Limitations to Obtaining History: No Limitations - Past Medical History Cardio/Vascular: Yes: CAD, HTN, Hyperlipdemia Pulmonary: Yes: COPD Musculoskeletal: Yes: Chronic low back pain Rheumatology: Yes: Rheumatoid Arthritis - Past Surgical History Past Surgical History: Yes: CABG, Stent - Alcohol/Substance Use Hx Alcohol Use: No History of Substance Use: reports: None - Smoking History Smoking history: Never smoked Have you smoked in the past 12 months: No Aproximately how many cigarettes per day: 0 If you are a former smoker, when did you quit?: 3YRS Home Medications - Allergies Allergies/Adverse Reactions: Allergies Allergy/AdvReac Type Severity Reaction Status Date / Time Penicillins Allergy Severe Rash Verified 11/05/17 20:51 seafood Allergy Severe Rash Uncoded 11/05/17 20:51 - Home Medications Home Medications: Ambulatory Orders Albuterol 2.5/Ipratropium 0.5 [Duoneb -] 1 amp NEB QIDR amp 05/27/16 Budesonide/Formeterol Fumarate [SYMBICORT 80/4.5mcg -] 1 puff IH BID inhaler Clopidogrel Bisulfate [Plavix -] 75 mg PO DAILY tablet 05/27/16 Furosemide [Lasix -] 40 mg PO DAILY tablet 05/27/16 predniSONE [Deltasone -] 10 mg PO DAILY 08/25/16 Ramipril 5 mg PO DAILY 12/27/16 Simvastatin 40 mg PO DAILY 12/27/16 Acetaminophen W/ Codeine #3 [Tylenol # 3 -] 1 tab PO BID 10/20/17 Family Disease History - Family Disease History Family Disease History: Heart Disease: Grandparent, Other: Brother (Lupus) Review of Systems - Review of Systems Musculoskeletal: reports: Other (Pain in right calf) Physical Exam Vital Signs: Vital Signs Temperature 98 F 11/06/17 09:44 Pulse Rate 93 H 11/06/17 09:44 Respiratory Rate 20 11/06/17 09:44 Blood Pressure 107/64 11/06/17 09:44 O2 Sat by Pulse Oximetry (%) 100 11/06/17 03:40 Extremities: Yes: Other (There is a soft swelling over his right calf, No redness , no induration. ? abscess) Labs: CBC, BMP 11/05/17 21:13 11/05/17 21:13 Imaging - Results Ultrasound: Report Reviewed, Image Reviewed (Heterogeneous mass in right calf.) Problem List - Problems (1) Pain and swelling of right lower leg Code(s): M79.661 - PAIN IN RIGHT LOWER LEG; M79.89 - OTHER SPECIFIED SOFT TISSUE DISORDERS (2) COPD (chronic obstructive pulmonary disease) Code(s): J44.9 - CHRONIC OBSTRUCTIVE PULMONARY DISEASE, UNSPECIFIED Qualifiers: COPD type: emphysema Emphysema type: unspecified Qualified Code(s): J43.9 - Emphysema, unspecified (3) CAD (coronary artery disease) Code(s): I25.10 - ATHSCL HEART DISEASE OF [place] CORONARY ARTERY W/O ANG PCTRS Qualifiers: Coronary Disease-Associated Artery/Lesion type: [place] artery [place] vs. transplanted heart: [place] heart Associated angina: without angina Qualified Code(s): I25.10 - Atherosclerotic heart disease of [place] coronary artery without angina pectoris (4) HTN (hypertension) Code(s): I10 - ESSENTIAL (PRIMARY) HYPERTENSION Qualifiers: Hypertension type: essential hypertension Qualified Code(s): I10 - Essential (primary) hypertension Assessment/Plan Mass in right calf Heterogeneous mass as per ultrasound report , MRI is suggested. Will request MRI. Procedure: After explaining to the patient, consent was obtained for incision and drainage of ? abscess right leg. Time out was called. The right calf was cleansed with betadine. 1% lidocaine 10 ml was injected around the swelling in the right calf,with a no. 15 gauge needle. With a no.18 gauge needle, inserted through the anesthetised skin, was introduced into the swelling in the calf , in different direction. No pus was obtained. The aspirated fluid ( minimal , clear) was sent for culture and antibiotic sensitivity. Patient tolerated well. Tape applied. Impression : Mo acute purulent infection . Will request MRI as suggested by radiologist.
--- NOTE | 2017-11-06 12:41 | PROC ---
Procedure Note Procedure: Date : 11/05/2017 Place : Bed side. Planned : Aspiration of ? abscess right leg . Anesdthesia: Local 1%b lidocaine Surgeon : Dr. Bhavin Cruz Date 11/05/2017 Procedure: After explaining to the patient, consent was obtained for incision and drainage of ? abscess right leg. Time out was called. The right calf was cleansed with betadine. 1% lidocaine 10 ml was injected around the swelling in the right calf,with a no. 15 gauge needle. With a no.18 gauge needle, inserted through the anesthetised skin, was introduced into the swelling in the calf , in different direction. No pus was obtained. The aspirated fluid ( minimal , clear) was sent for culture and antibiotic sensitivity. Patient tolerated well. Tape applied. Impression : No acute purulent infection . Will request MRI as suggested by radiologist.
[2017-11-06] MEDS: ALBUTEROL SO4 0.083% IH SOL 2.5 MG/3 ML VIAL.NEB. NEB PRN ×2 (13:14→23:00)
[2017-11-06] MEDS: FUROSEMIDE 40 MG TABLET (FP) PO SCH (21:04)
[2017-11-06] MEDS: CLOPIDOGREL BISULFATE 75 MG TABLET (FP) PO SCH (21:04)
[2017-11-06] MEDS: predniSONE 10 MG TABLET (UD) PO SCH (21:04)
[2017-11-06] MEDS: RAMIPRIL 5 MG CAPSULE (FP) PO SCH (21:04)
[2017-11-06] MEDS: BUDESONIDE/FORMETEROL FUMARATE 80/4.5 mcg INHALER IH SCH (21:05)
[2017-11-07] MEDS: ALBUTEROL SO4 0.083% IH SOL 2.5 MG/3 ML VIAL.NEB. NEB PRN (08:31)
[2017-11-07] MEDS: predniSONE 10 MG TABLET (UD) PO SCH (09:35)
[2017-11-07] MEDS: RAMIPRIL 5 MG CAPSULE (FP) PO SCH (09:35)
[2017-11-07] MEDS: CLOPIDOGREL BISULFATE 75 MG TABLET (FP) PO SCH (09:35)
[2017-11-07] MEDS: ACETAMINOPHEN WITH CODEINE 300MG/30MG TABLET PO PRN ×2 (09:35→17:32)
[2017-11-07] MEDS: FUROSEMIDE 40 MG TABLET (FP) PO SCH (09:35)
[2017-11-07] MEDS: BUDESONIDE/FORMETEROL FUMARATE 80/4.5 mcg INHALER IH SCH ×2 (09:35→21:12)
--- NOTE | 2017-11-07 12:13 | PN ---
Progress Note, Physician - Current Medication List Current Medications: Active Medications Acetaminophen/Codeine Phosphate (Tylenol # 3 -) 1 tab PO Q6H PRN PRN Reason: PAIN LEVEL 6-10 Last Admin: 11/07/17 09:35 Dose: 1 tab Albuterol Sulfate (Ventolin 0.083% Nebulizer Soln -) 1 amp NEB Q6H PRN PRN Reason: SHORT OF BREATH/WHEEZING Last Admin: 11/07/17 08:31 Dose: 1 amp Budesonide/Formoterol Fumarate (Symbicort 80/4.5mcg -) 1 puff IH BID [facility] Last Admin: 11/07/17 09:35 Dose: 1 puff Clopidogrel Bisulfate (Plavix -) 75 mg PO DAILY [facility] Last Admin: 11/07/17 09:35 Dose: 75 mg Furosemide (Lasix -) 40 mg PO DAILY [facility] Last Admin: 11/07/17 09:35 Dose: 40 mg Prednisone (Deltasone -) 10 mg PO DAILY [facility] Last Admin: 11/07/17 09:35 Dose: 10 mg Ramipril (Altace -) 5 mg PO DAILY [facility] Last Admin: 11/07/17 09:35 Dose: 5 mg - Objective Vital Signs: Vital Signs Temperature 98 F 11/07/17 09:31 Pulse Rate 112 H 11/07/17 09:31 Respiratory Rate 24 11/07/17 09:31 Blood Pressure 121/70 11/07/17 09:31 O2 Sat by Pulse Oximetry (%) 100 11/06/17 21:00 Labs: CBC, BMP 11/05/17 21:13 11/05/17 21:13 INR, PTT INR 1.10 (0.82-1.09) 11/05/17 21:13 Problem List - Problems (1) Pain and swelling of right lower leg Code(s): M79.661 - PAIN IN RIGHT LOWER LEG; M79.89 - OTHER SPECIFIED SOFT TISSUE DISORDERS (2) COPD (chronic obstructive pulmonary disease) Code(s): J44.9 - CHRONIC OBSTRUCTIVE PULMONARY DISEASE, UNSPECIFIED Qualifiers: COPD type: emphysema Emphysema type: unspecified Qualified Code(s): J43.9 - Emphysema, unspecified (3) CAD (coronary artery disease) Code(s): I25.10 - ATHSCL HEART DISEASE OF [place] CORONARY ARTERY W/O ANG PCTRS Qualifiers: Coronary Disease-Associated Artery/Lesion type: [place] artery [place] vs. transplanted heart: [place] heart Associated angina: without angina Qualified Code(s): I25.10 - Atherosclerotic heart disease of [place] coronary artery without angina pectoris (4) HTN (hypertension) Code(s): I10 - ESSENTIAL (PRIMARY) HYPERTENSION Qualifiers: Hypertension type: essential hypertension Qualified Code(s): I10 - Essential (primary) hypertension Assessment/Plan Surgery: MRI is pending. He has no calf tenderness, no induration of calf. Continue antibiotics. Will follow MRI.
--- NOTE | 2017-11-07 14:58 | PN ---
Progress Note, Physician Chief Complaint: Leg pain better History of Present Illness: Case discussed with Dr Delcid MRI ordered Will discuss further after MRI - Current Medication List Current Medications: Active Medications Acetaminophen/Codeine Phosphate (Tylenol # 3 -) 1 tab PO Q6H PRN PRN Reason: PAIN LEVEL 6-10 Last Admin: 11/07/17 09:35 Dose: 1 tab Albuterol Sulfate (Ventolin 0.083% Nebulizer Soln -) 1 amp NEB Q6H PRN PRN Reason: SHORT OF BREATH/WHEEZING Last Admin: 11/07/17 08:31 Dose: 1 amp Budesonide/Formoterol Fumarate (Symbicort 80/4.5mcg -) 1 puff IH BID [facility] Last Admin: 11/07/17 09:35 Dose: 1 puff Clopidogrel Bisulfate (Plavix -) 75 mg PO DAILY [facility] Last Admin: 11/07/17 09:35 Dose: 75 mg Furosemide (Lasix -) 40 mg PO DAILY [facility] Last Admin: 11/07/17 09:35 Dose: 40 mg Prednisone (Deltasone -) 10 mg PO DAILY [facility] Last Admin: 11/07/17 09:35 Dose: 10 mg Ramipril (Altace -) 5 mg PO DAILY [facility] Last Admin: 11/07/17 09:35 Dose: 5 mg - Objective Vital Signs: Vital Signs Temperature 98.3 F 11/07/17 14:43 Pulse Rate 109 H 11/07/17 14:43 Respiratory Rate 24 11/07/17 14:43 Blood Pressure 102/67 11/07/17 14:43 O2 Sat by Pulse Oximetry (%) 98 11/07/17 09:00 Constitutional: Yes: No Distress Eyes: Yes: WNL HENT: Yes: WNL Neck: Yes: WNL Cardiovascular: Yes: Regular Rate and Rhythm Respiratory: Yes: On Nasal O2, Poor Air Entry Gastrointestinal: Yes: WNL ...Rectal Exam: Yes: Deferred Edema: No Edema: LLE: 1+ Neurological: Yes: Alert Labs: CBC, BMP 11/05/17 21:13 11/05/17 21:13 INR, PTT INR 1.10 (0.82-1.09) 11/05/17 21:13 Assessment/Plan Continue same trt
[2017-11-08] MEDS: ALBUTEROL SO4 0.083% IH SOL 2.5 MG/3 ML VIAL.NEB. NEB PRN ×2 (08:40→18:34)
[2017-11-08] MEDS: predniSONE 10 MG TABLET (UD) PO SCH (09:06)
[2017-11-08] MEDS: BUDESONIDE/FORMETEROL FUMARATE 80/4.5 mcg INHALER IH SCH ×2 (09:06→22:48)
[2017-11-08] MEDS: ACETAMINOPHEN WITH CODEINE 300MG/30MG TABLET PO PRN ×2 (09:06→18:10)
[2017-11-08] MEDS: FUROSEMIDE 40 MG TABLET (FP) PO SCH (09:07)
[2017-11-08] MEDS: RAMIPRIL 5 MG CAPSULE (FP) PO SCH (09:07)
--- NOTE | 2017-11-08 09:07 | PN ---
Progress Note, Physician Chief Complaint: Rt leg pain persists History of Present Illness: MRI showed large cystic mass calf muscle area - Current Medication List Current Medications: Active Medications Acetaminophen/Codeine Phosphate (Tylenol # 3 -) 1 tab PO Q6H PRN PRN Reason: PAIN LEVEL 6-10 Last Admin: 11/07/17 17:32 Dose: 1 tab Albuterol Sulfate (Ventolin 0.083% Nebulizer Soln -) 1 amp NEB Q6H PRN PRN Reason: SHORT OF BREATH/WHEEZING Last Admin: 11/07/17 08:31 Dose: 1 amp Budesonide/Formoterol Fumarate (Symbicort 80/4.5mcg -) 1 puff IH BID [facility] Last Admin: 11/07/17 21:12 Dose: 1 puff Furosemide (Lasix -) 40 mg PO DAILY [facility] Last Admin: 11/07/17 09:35 Dose: 40 mg Prednisone (Deltasone -) 10 mg PO DAILY [facility] Last Admin: 11/07/17 09:35 Dose: 10 mg Ramipril (Altace -) 5 mg PO DAILY [facility] Last Admin: 11/07/17 09:35 Dose: 5 mg - Objective Vital Signs: Vital Signs Temperature 98.4 F 11/08/17 06:51 Pulse Rate 104 H 11/08/17 06:51 Respiratory Rate 20 11/08/17 06:51 Blood Pressure 117/59 11/08/17 06:51 O2 Sat by Pulse Oximetry (%) 98 11/07/17 21:00 Constitutional: Yes: No Distress Eyes: Yes: WNL HENT: Yes: WNL Neck: Yes: WNL Cardiovascular: Yes: WNL Respiratory: Yes: WNL Gastrointestinal: Yes: WNL Musculoskeletal: Yes: Back Pain Neurological: Yes: Alert Labs: CBC, BMP 11/05/17 21:13 11/05/17 21:13 INR, PTT INR 1.10 (0.82-1.09) 11/05/17 21:13 - ....Imaging MRI: Report Reviewed Assessment/Plan Will discuss with Dr Delcid regarding surgical exicion
--- NOTE | 2017-11-08 12:41 | CON.CARD ---
Consult Consult Specialty:: Cardiology - History of Present Illness History of Present Illness: Patient is a 62 year old male with a significant past medical history of HTN, CAD, Hyperlipidemia, COPD Emphysema GOLD stage 4 on Home O2 CAD chronic back pain, who was sent to the ED by his PCP for surgical consult. Patient reports experiencing right calf edema that began earlier this week. He reports going to his PCP for evaluation, who fren puss from his right calf using a needle. Patient reports PCP advised going to the ED to be admitted and be evaluation by surgery to receive an Incision and drainage for his right leg. Denies chest pain, Sob. Denies fevers, chills. Denies fevers, chills. Denies contact with sick individuals, out of state travelling. Denies any other symptoms. Allergies: Seafood. Social History: Former smoker. No alcohol. No illicit drugs. Surgical History: CABG, Stent PMD: Dr. Hendrix, Dr. Delcid [facility] Abnormal stress test showing inferior wall ischemia April 09, 2014 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 [facility] Rheumatoid Arthritis unsucesful TRANSIT WORKER attempt 2013 [facility] - History Source History Provided By: Patient, Medical Record - Past Medical History Cardio/Vascular: Yes: CAD, HTN, Hyperlipdemia Pulmonary: Yes: COPD Musculoskeletal: Yes: Chronic low back pain Rheumatology: Yes: Rheumatoid Arthritis - Past Surgical History Past Surgical History: Yes: CABG, Stent - Alcohol/Substance Use Hx Alcohol Use: No History of Substance Use: reports: None - Smoking History Smoking history: Never smoked Have you smoked in the past 12 months: No Aproximately how many cigarettes per day: 0 If you are a former smoker, when did you quit?: 3YRS Home Medications - Allergies Allergies/Adverse Reactions: Allergies Allergy/AdvReac Type Severity Reaction Status Date / Time Penicillins Allergy Severe Rash Verified 11/05/17 20:51 seafood Allergy Severe Rash Uncoded 11/05/17 20:51 - Home Medications Home Medications: Ambulatory Orders Albuterol 2.5/Ipratropium 0.5 [Duoneb -] 1 amp NEB QIDR amp 05/27/16 Budesonide/Formeterol Fumarate [SYMBICORT 80/4.5mcg -] 1 puff IH BID inhaler Clopidogrel Bisulfate [Plavix -] 75 mg PO DAILY tablet 05/27/16 Furosemide [Lasix -] 40 mg PO DAILY tablet 05/27/16 predniSONE [Deltasone -] 10 mg PO DAILY 08/25/16 Ramipril 5 mg PO DAILY 12/27/16 Simvastatin 40 mg PO DAILY 12/27/16 Acetaminophen W/ Codeine #3 [Tylenol # 3 -] 1 tab PO BID 10/20/17 Family Disease History - Family Disease History Family Disease History: Heart Disease: Grandparent, Other: Brother (Lupus) Review of Systems - Review of Systems Constitutional: reports: No Symptoms Eyes: reports: No Symptoms HENT: reports: No Symptoms Neck: reports: No Symptoms Cardiovascular: reports: Edema Respiratory: reports: SOB, SOB on Exertion Gastrointestinal: reports: No Symptoms Genitourinary: reports: No Symptoms Breasts: reports: No Symptoms Reported Musculoskeletal: reports: No Symptoms Integumentary: reports: No Symptoms Neurological: reports: No Symptoms Endocrine: reports: No Symptoms Hematology/Lymphatic: reports: No Symptoms Psychiatric: reports: No Symptoms Vital Signs: Vital Signs Temperature 98.3 F 11/08/17 10:00 Pulse Rate 102 H 11/08/17 10:00 Respiratory Rate 20 11/08/17 10:00 Blood Pressure 137/75 11/08/17 10:00 O2 Sat by Pulse Oximetry (%) 98 11/08/17 09:00 Constitutional: Yes: Well Nourished, No Distress, Calm Eyes: Yes: WNL, Conjunctiva Clear, EOM Intact HENT: Yes: WNL, Atraumatic, Normocephalic Neck: Yes: WNL, Supple, Trachea Midline Respiratory: Yes: WNL, Regular, CTA Bilaterally Gastrointestinal: Yes: WNL, Normal Bowel Sounds Renal/: Yes: WNL Cardiovascular: Yes: WNL, Regular Rate and Rhythm Heart Sounds: Yes: S1, S2 Musculoskeletal: Yes: WNL Extremities: Yes: WNL Edema: LLE: 1+, RLE: 2+ Integumentary: Yes: WNL Neurological: Yes: WNL, Alert, Oriented ...Motor Strength: WNL Psychiatric: Yes: WNL, Alert, Oriented - Other Data Labs, Other Data: CBC, BMP 11/05/17 21:13 11/05/17 21:13 INR, PTT INR 1.10 (0.82-1.09) 11/05/17 21:13 Laboratory Tests 11/05/17 11/05/17 11/05/17 21:13 21:13 21:13 WBC 12.6 H RBC 4.12 Hgb 11.1 L Hct 33.4 L MCV 81.1 MCH 27.0 MCHC 33.3 RDW 15.3 Plt Count 391 MPV 7.1 L Neutrophils % 83.6 H Lymphocytes % 8.9 D Monocytes % 6.7 Eosinophils % 0.5 Basophils % 0.3 PT with INR 12.40 INR 1.10 Sodium 137 Potassium 4.2 Chloride 101 Carbon Dioxide 29 Anion Gap 7 L BUN 17 Creatinine 0.9 Creat Clearance w eGFR > 60 Random Glucose 108 H Calcium 8.4 L Total Bilirubin 0.5 D AST 33 D ALT 30 D Alkaline Phosphatase 216 H D Total Protein 6.7 Albumin 2.9 L Imaging - Results Chest X-ray: Image Reviewed (hyperinflated lungs no effusion) EKG: Pending Problem List - Problems (1) Abscess of calf Code(s): L02.419 - CUTANEOUS ABSCESS OF LIMB, UNSPECIFIED (2) Pain and swelling of right lower leg Code(s): M79.661 - PAIN IN RIGHT LOWER LEG; M79.89 - OTHER SPECIFIED SOFT TISSUE DISORDERS (3) Abnormal LFTs Code(s): R79.89 - OTHER SPECIFIED ABNORMAL FINDINGS OF BLOOD CHEMISTRY (4) Acute on chronic respiratory failure with hypoxemia Code(s): J96.21 - ACUTE AND CHRONIC RESPIRATORY FAILURE WITH HYPOXIA (5) Acute on chronic respiratory failure with hypoxia and hypercapnia Code(s): J96.21 - ACUTE AND CHRONIC RESPIRATORY FAILURE WITH HYPOXIA; J96.22 - ACUTE AND CHRONIC RESPIRATORY FAILURE WITH HYPERCAPNIA (6) Anxiety Code(s): F41.9 - ANXIETY DISORDER, UNSPECIFIED (7) CAD (coronary artery disease) Code(s): I25.10 - ATHSCL HEART DISEASE OF [place] CORONARY ARTERY W/O ANG PCTRS Qualifiers: Coronary Disease-Associated Artery/Lesion type: [place] artery [place] vs. transplanted heart: [place] heart Associated angina: without angina Qualified Code(s): I25.10 - Atherosclerotic heart disease of [place] coronary artery without angina pectoris (8) COPD (chronic obstructive pulmonary disease) Code(s): J44.9 - CHRONIC OBSTRUCTIVE PULMONARY DISEASE, UNSPECIFIED Qualifiers: COPD type: emphysema Emphysema type: unspecified Qualified Code(s): J43.9 - Emphysema, unspecified (9) COPD exacerbation Code(s): J44.1 - CHRONIC OBSTRUCTIVE PULMONARY DISEASE W (ACUTE) EXACERBATION (10) Chronic pain Code(s): G89.29 - OTHER CHRONIC PAIN (11) Compression fracture of L1 lumbar vertebra Code(s): S32.010A - WEDGE COMPRESSION FRACTURE OF FIRST LUMBAR VERTEBRA, INIT Qualifiers: Encounter type: initial encounter Fracture type: closed Qualified Code(s) : S32.010A - Wedge compression fracture of first lumbar vertebra, initial encounter for closed fracture (12) Congestive cardiac failure Code(s): I50.9 - HEART FAILURE, UNSPECIFIED (13) Cough Code(s): R05 - COUGH (14) Diastolic CHF Code(s): I50.30 - UNSPECIFIED DIASTOLIC (CONGESTIVE) HEART FAILURE Qualifiers: Heart failure chronicity: unspecified Qualified Code(s): I50.30 - Unspecified diastolic (congestive) heart failure (15) Edema Code(s): R60.9 - EDEMA, UNSPECIFIED Qualifiers: Edema type: unspecified Qualified Code(s): R60.9 - Edema, unspecified (16) HTN (hypertension) Code(s): I10 - ESSENTIAL (PRIMARY) HYPERTENSION Qualifiers: Hypertension type: essential hypertension Qualified Code(s): I10 - Essential (primary) hypertension (17) History of coronary artery bypass graft Code(s): Z95.1 - PRESENCE OF AORTOCORONARY BYPASS GRAFT (18) History of percutaneous coronary intervention Code(s): Z98.89 - OTHER SPECIFIED POSTPROCEDURAL STATES * DO NOT USE * (19) Hypercholesterolemia Code(s): E78.0 - PURE HYPERCHOLESTEROLEMIA * DO NOT USE * (20) Hyperkalemia Code(s): E87.5 - HYPERKALEMIA (21) Inguinal hernia Code(s): K40.90 - UNIL INGUINAL HERNIA, W/O OBST OR GANGR, NOT SPCF RECUR (22) Intractable pain Code(s): R52 - PAIN, UNSPECIFIED (23) LLQ pain Code(s): R10.32 - LEFT LOWER QUADRANT PAIN (24) Left groin pain Code(s): R10.32 - LEFT LOWER QUADRANT PAIN (25) Lower extremity edema Code(s): R60.0 - LOCALIZED EDEMA (26) Lumbar disc herniation Code(s): M51.26 - OTHER INTERVERTEBRAL DISC DISPLACEMENT, LUMBAR REGION (27) Nosebleed Code(s): R04.0 - EPISTAXIS (28) PSVT (paroxysmal supraventricular tachycardia) Code(s): I47.1 - SUPRAVENTRICULAR TACHYCARDIA (29) Pneumonia Code(s): J18.9 - PNEUMONIA, UNSPECIFIED ORGANISM (30) Radiculopathy Code(s): M54.10 - RADICULOPATHY, SITE UNSPECIFIED Qualifiers: Spinal region: lumbar Qualified Code(s): M54.16 - Radiculopathy, lumbar region (31) Rheumatoid arthritis Code(s): M06.9 - RHEUMATOID ARTHRITIS, UNSPECIFIED (32) Rheumatoid arthritis involving ankle with positive rheumatoid factor Code(s): M05.779 - RHEU ARTHRIT W RHEU FACTOR OF UNSP ANK/FT W/O ORG/SYS INVOLV Qualifiers: Laterality: bilateral Qualified Code(s): M05.771 - Rheumatoid arthritis with rheumatoid factor of right ankle and foot without organ or systems involvement; M05.772 - Rheumatoid arthritis with rheumatoid factor of left ankle and foot without organ or systems involvement; M05.772 - Rheumatoid arthritis with rheumatoid factor of left ankle and foot without organ or systems involvement; M05.772 - Rheumatoid arthritis with rheumatoid factor of left ankle and foot without organ or systems involvement; M05.772 - Rheumatoid arthritis with rheumatoid factor of left ankle and foot without organ or systems involvement (33) Rheumatoid arthritis of multiple sites without organ or system involvement with positive rheumatoid factor Code(s): M05.79 - RHEU ARTHRITIS W RHEU FACTOR MULT SITE W/O ORG/SYS INVOLV (34) Sinus tachycardia Code(s): R00.0 - TACHYCARDIA, UNSPECIFIED Assessment/Plan ashd cabg pci chf severe copd o2 dependent edema l ext abscess/cellulitis Plan check ekg BNP not sure patient in CHF will checks BNP
--- NOTE | 2017-11-08 19:26 | PN ---
Progress Note, Physician - Current Medication List Current Medications: Active Medications Acetaminophen/Codeine Phosphate (Tylenol # 3 -) 1 tab PO Q6H PRN PRN Reason: PAIN LEVEL 6-10 Last Admin: 11/08/17 18:10 Dose: 1 tab Albuterol Sulfate (Ventolin 0.083% Nebulizer Soln -) 1 amp NEB Q6H PRN PRN Reason: SHORT OF BREATH/WHEEZING Last Admin: 11/08/17 18:34 Dose: 1 amp Budesonide/Formoterol Fumarate (Symbicort 80/4.5mcg -) 1 puff IH BID [facility] Last Admin: 11/08/17 09:06 Dose: 1 puff Furosemide (Lasix -) 40 mg PO DAILY [facility] Last Admin: 11/08/17 09:07 Dose: 40 mg Prednisone (Deltasone -) 10 mg PO DAILY [facility] Last Admin: 11/08/17 09:06 Dose: 10 mg Ramipril (Altace -) 5 mg PO DAILY [facility] Last Admin: 11/08/17 09:07 Dose: 5 mg - Objective Vital Signs: Vital Signs Temperature 99 F 11/08/17 16:20 Pulse Rate 109 H 11/08/17 16:20 Respiratory Rate 20 11/08/17 16:20 Blood Pressure 99/47 11/08/17 16:20 O2 Sat by Pulse Oximetry (%) 98 11/08/17 09:00 Labs: CBC, BMP 11/05/17 21:13 11/05/17 21:13 INR, PTT INR 1.10 (0.82-1.09) 11/05/17 21:13 Problem List - Problems (1) Pain and swelling of right lower leg Code(s): M79.661 - PAIN IN RIGHT LOWER LEG; M79.89 - OTHER SPECIFIED SOFT TISSUE DISORDERS (2) COPD (chronic obstructive pulmonary disease) Code(s): J44.9 - CHRONIC OBSTRUCTIVE PULMONARY DISEASE, UNSPECIFIED Qualifiers: COPD type: emphysema Emphysema type: unspecified Qualified Code(s): J43.9 - Emphysema, unspecified (3) CAD (coronary artery disease) Code(s): I25.10 - ATHSCL HEART DISEASE OF [place] CORONARY ARTERY W/O ANG PCTRS Qualifiers: Coronary Disease-Associated Artery/Lesion type: [place] artery [place] vs. transplanted heart: [place] heart Associated angina: without angina Qualified Code(s): I25.10 - Atherosclerotic heart disease of [place] coronary artery without angina pectoris (4) HTN (hypertension) Code(s): I10 - ESSENTIAL (PRIMARY) HYPERTENSION Qualifiers: Hypertension type: essential hypertension Qualified Code(s): I10 - Essential (primary) hypertension Assessment/Plan MRI of the leg shows a multiseptated learge cyst extending from the popliteal fossa, ? bakers cyst. among the differential diagnosis. MRI of the right knee is suggested. This is a complex problem and probably an orthopedic problem. I have discussed with Dr. Hendrix. Will obtain orthopedic consultation, with Dr. De Los Santos. MRI of the right knee is requested.
[2017-11-08 20:32] VITALS: BMI 24.3
[2017-11-09] MEDS: ACETAMINOPHEN WITH CODEINE 300MG/30MG TABLET PO PRN ×2 (06:55→14:43)
[2017-11-09] MEDS: ALBUTEROL SO4 0.083% IH SOL 2.5 MG/3 ML VIAL.NEB. NEB PRN ×2 (07:10→20:10)
[2017-11-09 09:04] LABS: N-TERMINAL BNP 66.47 pg/ml (5-125)
--- NOTE | 2017-11-09 09:04 | PN ---
Progress Note, Physician Chief Complaint: C/O pain Rt knee and leg History of Present Illness: Case discussed with Dr Delcid ,advised MRI of Rt knee Also ortho consult to Dr De Los Santos - Current Medication List Current Medications: Active Medications Acetaminophen/Codeine Phosphate (Tylenol # 3 -) 1 tab PO Q6H PRN PRN Reason: PAIN LEVEL 6-10 Last Admin: 11/09/17 06:55 Dose: 1 tab Albuterol Sulfate (Ventolin 0.083% Nebulizer Soln -) 1 amp NEB Q6H PRN PRN Reason: SHORT OF BREATH/WHEEZING Last Admin: 11/09/17 07:10 Dose: 1 amp Budesonide/Formoterol Fumarate (Symbicort 80/4.5mcg -) 1 puff IH BID [facility] Last Admin: 11/08/17 22:48 Dose: 1 puff Furosemide (Lasix -) 40 mg PO DAILY [facility] Last Admin: 11/08/17 09:07 Dose: 40 mg Prednisone (Deltasone -) 10 mg PO DAILY [facility] Last Admin: 11/08/17 09:06 Dose: 10 mg Ramipril (Altace -) 5 mg PO DAILY [facility] Last Admin: 11/08/17 09:07 Dose: 5 mg - Objective Vital Signs: Vital Signs Temperature 98.6 F 11/09/17 06:52 Pulse Rate 95 H 11/09/17 06:52 Respiratory Rate 20 11/09/17 06:52 Blood Pressure 103/52 11/09/17 06:52 O2 Sat by Pulse Oximetry (%) 100 11/08/17 21:00 Constitutional: Yes: Anxious Eyes: Yes: WNL HENT: Yes: WNL Neck: Yes: WNL Cardiovascular: Yes: WNL Respiratory: Yes: On Nasal O2 Genitourinary: Yes: WNL Edema: RLE: 1+ Neurological: Yes: Alert Labs: CBC, BMP 11/05/17 21:13 11/05/17 21:13 INR, PTT INR 1.10 (0.82-1.09) 11/05/17 21:13 Assessment/Plan Will discuss with Dr Delcid regarding surgical exicion 11/09/17 Start mertazepam for sleep
[2017-11-09] MEDS ORDERED: PT OWN MED DRAWER 7, Y5N ONE (09:56)
[2017-11-09] MEDS: FUROSEMIDE 40 MG TABLET (FP) PO SCH (10:20)
[2017-11-09] MEDS: predniSONE 10 MG TABLET (UD) PO SCH (10:21)
[2017-11-09] MEDS: RAMIPRIL 5 MG CAPSULE (FP) PO SCH (10:21)
[2017-11-09] MEDS: BUDESONIDE/FORMETEROL FUMARATE 80/4.5 mcg INHALER IH SCH ×2 (10:22→21:42)
--- NOTE | 2017-11-09 11:50 | EKG ---
Test Reason : Blood Pressure : / mmHG Vent. Rate : 094 BPM Atrial Rate : 094 BPM P-R Int : 118 ms QRS Dur : 148 ms QT Int : 374 ms P-R-T Axes : 082 077 065 degrees QTc Int : 467 ms NORMAL SINUS RHYTHM RIGHT BUNDLE BRANCH BLOCK ABNORMAL ECG WHEN COMPARED WITH ECG OF 08-NOV-2017 14:13, NO SIGNIFICANT CHANGE WAS FOUND Confirmed by MD SAIGE, ZAID (2012) on 11/09/2017 11:50:18 AM Referred By: BRIANNA SARMIENTO DR Confirmed By:ZAID MOULTON MD
--- NOTE | 2017-11-09 11:56 | EKG ---
Test Reason : Blood Pressure : / mmHG Vent. Rate : 106 BPM Atrial Rate : 106 BPM P-R Int : 114 ms QRS Dur : 128 ms QT Int : 346 ms P-R-T Axes : 082 094 068 degrees QTc Int : 459 ms SINUS TACHYCARDIA RIGHT BUNDLE BRANCH BLOCK ABNORMAL ECG WHEN COMPARED WITH ECG OF 20-OCT-2017 18:05, NO SIGNIFICANT CHANGE WAS FOUND Confirmed by MD SAIGE, ZAID ([id number]) on 11/09/2017 11:55:53 AM Referred By: Confirmed By:ZAID MOULTON MD
[2017-11-09] MEDS ORDERED: LIDOCAINE HCL 1%, 10 MG/ML (50 mL VIAL) SQ ONE (12:42)
[2017-11-09] MEDS ORDERED: LIDOCAINE HCL 1%, 10 MG/ML (20ML VIAL) ONE (12:44)
--- NOTE | 2017-11-09 12:50 | PN ---
Progress Note, Physician Chief Complaint: Pt A&Ox3; c/o pain in right knee; no chest pain:; +hortness of breath on minimal exertion (chronic COPD). History of Present Illness: Patient is a 62 year old male with a significant past medical history of HTN, CAD-->CABG), Hyperlipidemia, COPD Emphysema GOLD stage 4 on Home O2 CAD chronic back pain, who was sent to the ED by his PCP for surgical consult. Patient reports experiencing right calf edema that began earlier this week. He reports going to his PCP for evaluation, who fern puss from his right calf using a needle. Patient reports PCP advised going to the ED to be admitted and be evaluation by surgery to receive an Incision and drainage for his right leg. Denies chest pain, Sob. Denies fevers, chills. Denies fevers, chills. Denies contact with sick individuals, out of state travelling. Denies any other symptoms. Allergies: Seafood. Social History: Former smoker (quit when underwent CABG several years ago). No alcohol. No illicit drugs. Surgical History: CABG, Stent PMD: Dr. Hendrix, Dr. Delcid - Current Medication List Current Medications: Active Medications Albuterol Sulfate (Ventolin 0.083% Nebulizer Soln -) 1 amp NEB Q6H PRN PRN Reason: SHORT OF BREATH/WHEEZING Last Admin: 11/09/17 07:10 Dose: 1 amp Budesonide/Formoterol Fumarate (Symbicort 80/4.5mcg -) 1 puff IH BID [facility] Last Admin: 11/09/17 10:22 Dose: 1 puff Furosemide (Lasix -) 40 mg PO DAILY [facility] Last Admin: 11/09/17 10:20 Dose: 40 mg Lidocaine HCl (Xylocaine 1%) 5 ml SQ ONCE ONE Stop: 11/09/17 12:43 Mirtazapine (Remeron -) 7.5 mg PO HS [facility] Prednisone (Deltasone -) 10 mg PO DAILY [facility] Last Admin: 11/09/17 10:21 Dose: 10 mg Ramipril (Altace -) 5 mg PO DAILY [facility] Last Admin: 11/09/17 10:21 Dose: 5 mg - Objective Vital Signs: Vital Signs Temperature 98.2 F 11/09/17 09:00 Pulse Rate 93 H 11/09/17 09:00 Respiratory Rate 20 11/09/17 09:00 Blood Pressure 119/65 11/09/17 09:00 O2 Sat by Pulse Oximetry (%) 100 11/09/17 09:00 Constitutional: Yes: Anxious Eyes: Yes: WNL HENT: Yes: WNL Neck: Yes: WNL Cardiovascular: Yes: Regular Rate and Rhythm Respiratory: Yes: Diminished Gastrointestinal: Yes: Soft ...Rectal Exam: Yes: Deferred Genitourinary: No: Anuria Breast(s): Yes: WNL Musculoskeletal: Yes: Muscle Weakness Extremities: Yes: Deformity (RLE bandaged (s/p right calf fluid removal)) Neurological: Yes: WNL Psychiatric: Yes: Other (anxiety/depression) Labs: CBC, BMP 11/05/17 21:13 11/05/17 21:13 INR, PTT INR 1.10 (0.82-1.09) 11/05/17 21:13 - ....Imaging EKG: Image Reviewed (NSR; RBBB) Problem List - Problems (1) Abscess of calf Assessment/Plan: s/p drainage today. F/u with surgeon; f/u cultures. Code(s): L02.419 - CUTANEOUS ABSCESS OF LIMB, UNSPECIFIED (2) Acute on chronic respiratory failure with hypoxemia Assessment/Plan: Pt has been attending pulmonary clinic (Dr. Neves). F?u ECHO for LVEF Code(s): J96.21 - ACUTE AND CHRONIC RESPIRATORY FAILURE WITH HYPOXIA (3) Anxiety Code(s): F41.9 - ANXIETY DISORDER, UNSPECIFIED (4) CAD (coronary artery disease) Assessment/Plan: s/p CABG ?2013 after coronary stents. Denies hx SD. Aggressive lipid control with statin, diet, exercise. Code(s): I25.10 - ATHSCL HEART DISEASE OF [place] CORONARY ARTERY W/O ANG PCTRS Qualifiers: Coronary Disease-Associated Artery/Lesion type: [place] artery [place] vs. transplanted heart: [place] heart Associated angina: without angina Qualified Code(s): I25.10 - Atherosclerotic heart disease of [place] coronary artery without angina pectoris (5) COPD (chronic obstructive pulmonary disease) Assessment/Plan: BNP 66.47 Quit cigarettes when had CABG ? 2013. Code(s): J44.9 - CHRONIC OBSTRUCTIVE PULMONARY DISEASE, UNSPECIFIED Qualifiers: COPD type: emphysema Emphysema type: unspecified Qualified Code(s): J43.9 - Emphysema, unspecified
--- NOTE | 2017-11-09 13:09 | CON.ORTH ---
Consult Reason for Consultation:: right calf swelling, knee pain - Past Medical History Cardio/Vascular: Yes: CAD, HTN, Hyperlipdemia Pulmonary: Yes: COPD Musculoskeletal: Yes: Chronic low back pain Rheumatology: Yes: Rheumatoid Arthritis - Past Surgical History Past Surgical History: Yes: CABG, Stent - Alcohol/Substance Use Hx Alcohol Use: No History of Substance Use: reports: None - Smoking History Smoking history: Never smoked Have you smoked in the past 12 months: No Aproximately how many cigarettes per day: 0 If you are a former smoker, when did you quit?: 3YRS Home Medications - Allergies Allergies/Adverse Reactions: Allergies Allergy/AdvReac Type Severity Reaction Status Date / Time Penicillins Allergy Severe Rash Verified 11/05/17 20:51 seafood Allergy Severe Rash Uncoded 11/05/17 20:51 - Home Medications Home Medications: Ambulatory Orders Albuterol 2.5/Ipratropium 0.5 [Duoneb -] 1 amp NEB QIDR amp 05/27/16 Budesonide/Formeterol Fumarate [SYMBICORT 80/4.5mcg -] 1 puff IH BID inhaler Clopidogrel Bisulfate [Plavix -] 75 mg PO DAILY tablet 05/27/16 Furosemide [Lasix -] 40 mg PO DAILY tablet 05/27/16 predniSONE [Deltasone -] 10 mg PO DAILY 08/25/16 Ramipril 5 mg PO DAILY 12/27/16 Simvastatin 40 mg PO DAILY 12/27/16 Acetaminophen W/ Codeine #3 [Tylenol # 3 -] 1 tab PO BID 10/20/17 Family Disease History - Family Disease History Family Disease History: Heart Disease: Grandparent, Other: Brother (Lupus) Physical Exam for Ortho Vital Signs: Vital Signs Temperature 98.2 F 11/09/17 09:00 Pulse Rate 93 H 11/09/17 09:00 Respiratory Rate 20 11/09/17 09:00 Blood Pressure 119/65 11/09/17 09:00 O2 Sat by Pulse Oximetry (%) 100 11/09/17 09:00 Labs: CBC, BMP 11/05/17 21:13 11/05/17 21:13 INR, PTT INR 1.10 (0.82-1.09) 11/05/17 21:13 - Lower Extremity Knee: Yes: Right, Pain, Swelling, Tenderness, Other (+ ttp medially, rom 0-130, + mcmurrays, calf tense no erythema, nvi) Imaging - Results X-ray: Report Reviewed, Image Reviewed MRI: Report Reviewed, Image Reviewed Assessment/Plan 62 year old male with a significant past medical history of HTN, CAD, Hyperlipidemia, COPD Emphysema GOLD stage 4 on Home O2 CAD chronic back pain, who was sent to the ED by his PCP for surgical consult. Patient reports experiencing right calf edema that began earlier this week. a/p Right knee internal derangement with ruptured bakers cyst After consent obtained, time out performed, under sterile technique calf was injected with 1% lidocaine, calf was aspirated and 30 cc of cloudy fluid was aspirated, aspiration tolerated well, compression dressing applied. fluid sent for analysis MRI was ordered for right knee wbat elevation ROM execises f/u with MRI d/w Dr. De Los Santos
[2017-11-09 14:33] LABS: GLUCOSE,SYNOVIAL FLUID 2 mg/dL
[2017-11-09 14:41] LABS: TOTAL PROTEIN,SYNOVIAL FLUID 4 gm/dL
[2017-11-09 15:15] LABS: SYNOVIAL FLUID RBC 0 /mm3
[2017-11-09 15:16] LABS: SYNOVIAL FLUID SOURCE SYNOVIAL
[2017-11-09 15:27] LABS: CRYSTALS,SYNOVIAL FLUID NEGATIVE
[2017-11-09 16:25] LABS: SYNOVIAL FLUID LYMPHOCYTES 7 %; SYNOVIAL FLUID MACROPHAGES 11 %; SYNOVIAL FLUID NEUTROPHILS 82 %
[2017-11-09] MEDS: MIRTAZAPINE 15 MG TABLET (FP) PO SCH (21:42)
[2017-11-10] MEDS: ALBUTEROL SO4 0.083% IH SOL 2.5 MG/3 ML VIAL.NEB. NEB PRN ×2 (07:20→13:12)
[2017-11-10] MEDS ORDERED: PT OWN MED DRAWER 7, Y5N ONE (09:09)
[2017-11-10] MEDS: predniSONE 10 MG TABLET (UD) PO SCH (09:16)
[2017-11-10] MEDS: BUDESONIDE/FORMETEROL FUMARATE 80/4.5 mcg INHALER IH SCH ×2 (09:16→21:29)
[2017-11-10] MEDS: FUROSEMIDE 40 MG TABLET (FP) PO SCH (09:16)
[2017-11-10] MEDS: RAMIPRIL 5 MG CAPSULE (FP) PO SCH (09:20)
[2017-11-10] MEDS: ACETAMINOPHEN WITH CODEINE 300MG/30MG TABLET PO PRN ×2 (11:14→21:28)
--- NOTE | 2017-11-10 12:54 | PN ---
Progress Note, Physician History of Present Illness: Patient is a 62 year old male with a significant past medical history of HTN, CAD, Hyperlipidemia, COPD Emphysema GOLD stage 4 on Home O2 CAD chronic back pain, who was sent to the ED by his PCP for surgical consult. Patient reports experiencing right calf edema that began earlier this week. He reports going to his PCP for evaluation, who fern puss from his right calf using a needle. Patient reports PCP advised going to the ED to be admitted and be evaluation by surgery to receive an Incision and drainage for his right leg. Denies chest pain, Sob. Denies fevers, chills. Denies fevers, chills. Denies contact with sick individuals, out of state travelling. Denies any other symptoms. Allergies: Seafood. Social History: Former smoker. No alcohol. No illicit drugs. Surgical History: CABG, Stent PMD: Dr. Hendrix, 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 Nava at [facility] Rheumatoid Arthritis unsucesful ETHYLBENZENE CONVERTER HELPER attempt 2013 [facility] - Current Medication List Current Medications: Active Medications Acetaminophen/Codeine Phosphate (Tylenol # 3 -) 1 tab PO Q6H PRN PRN Reason: PAIN 5-10 Last Admin: 11/10/17 11:14 Dose: 1 tab Albuterol Sulfate (Ventolin 0.083% Nebulizer Soln -) 1 amp NEB Q6H PRN PRN Reason: SHORT OF BREATH/WHEEZING Last Admin: 11/10/17 07:20 Dose: 1 amp Budesonide/Formoterol Fumarate (Symbicort 80/4.5mcg -) 1 puff IH BID [facility] Last Admin: 11/10/17 09:16 Dose: 1 puff Furosemide (Lasix -) 40 mg PO DAILY [facility] Last Admin: 11/10/17 09:16 Dose: 40 mg Mirtazapine (Remeron -) 7.5 mg PO HS [facility] Last Admin: 11/09/17 21:42 Dose: 7.5 mg Prednisone (Deltasone -) 10 mg PO DAILY [facility] Last Admin: 11/10/17 09:16 Dose: 10 mg Ramipril (Altace -) 5 mg PO DAILY [facility] Last Admin: 11/10/17 09:20 Dose: 5 mg - Objective Vital Signs: Vital Signs Temperature 98.6 F 11/10/17 06:00 Pulse Rate 92 H 11/10/17 06:00 Respiratory Rate 20 11/10/17 09:00 Blood Pressure 122/72 11/10/17 06:00 O2 Sat by Pulse Oximetry (%) 100 11/10/17 09:00 Eyes: Yes: WNL, Conjunctiva Clear, EOM Intact HENT: Yes: WNL, Atraumatic, Normocephalic Neck: Yes: WNL, Supple, Trachea Midline Cardiovascular: Yes: WNL, Regular Rate and Rhythm Respiratory: Yes: WNL, Regular, CTA Bilaterally Gastrointestinal: Yes: WNL, Normal Bowel Sounds Genitourinary: Yes: WNL Musculoskeletal: Yes: WNL Extremities: Yes: WNL Edema: Yes Integumentary: Yes: WNL Neurological: Yes: WNL, Alert, Oriented ...Motor Strength: WNL Psychiatric: Yes: WNL Labs: CBC, BMP 11/05/17 21:13 11/05/17 21:13 INR, PTT INR 1.10 (0.82-1.09) 11/05/17 21:13 Problem List - Problems (1) Abscess of calf Code(s): L02.419 - CUTANEOUS ABSCESS OF LIMB, UNSPECIFIED (2) Pain and swelling of right lower leg Code(s): M79.661 - PAIN IN RIGHT LOWER LEG; M79.89 - OTHER SPECIFIED SOFT TISSUE DISORDERS (3) Abnormal LFTs Code(s): R79.89 - OTHER SPECIFIED ABNORMAL FINDINGS OF BLOOD CHEMISTRY (4) Acute on chronic respiratory failure with hypoxemia Code(s): J96.21 - ACUTE AND CHRONIC RESPIRATORY FAILURE WITH HYPOXIA (5) Acute on chronic respiratory failure with hypoxia and hypercapnia Code(s): J96.21 - ACUTE AND CHRONIC RESPIRATORY FAILURE WITH HYPOXIA; J96.22 - ACUTE AND CHRONIC RESPIRATORY FAILURE WITH HYPERCAPNIA (6) Anxiety Code(s): F41.9 - ANXIETY DISORDER, UNSPECIFIED (7) CAD (coronary artery disease) Code(s): I25.10 - ATHSCL HEART DISEASE OF [place] CORONARY ARTERY W/O ANG PCTRS Qualifiers: Coronary Disease-Associated Artery/Lesion type: [place] artery [place] vs. transplanted heart: [place] heart Associated angina: without angina Qualified Code(s): I25.10 - Atherosclerotic heart disease of [place] coronary artery without angina pectoris (8) COPD (chronic obstructive pulmonary disease) Code(s): J44.9 - CHRONIC OBSTRUCTIVE PULMONARY DISEASE, UNSPECIFIED Qualifiers: COPD type: emphysema Emphysema type: unspecified Qualified Code(s): J43.9 - Emphysema, unspecified (9) COPD exacerbation Code(s): J44.1 - CHRONIC OBSTRUCTIVE PULMONARY DISEASE W (ACUTE) EXACERBATION (10) Chronic pain Code(s): G89.29 - OTHER CHRONIC PAIN (11) Compression fracture of L1 lumbar vertebra Code(s): S32.010A - WEDGE COMPRESSION FRACTURE OF FIRST LUMBAR VERTEBRA, INIT Qualifiers: Encounter type: initial encounter Fracture type: closed Qualified Code(s) : S32.010A - [place] compression fracture of first lumbar vertebra, initial encounter for closed fracture (12) Congestive cardiac failure Code(s): I50.9 - HEART FAILURE, UNSPECIFIED (13) Cough Code(s): R05 - COUGH (14) Diastolic CHF Code(s): I50.30 - UNSPECIFIED DIASTOLIC (CONGESTIVE) HEART FAILURE Qualifiers: Heart failure chronicity: unspecified Qualified Code(s): I50.30 - Unspecified diastolic (congestive) heart failure (15) Edema Code(s): R60.9 - EDEMA, UNSPECIFIED Qualifiers: Edema type: unspecified Qualified Code(s): R60.9 - Edema, unspecified (16) HTN (hypertension) Code(s): I10 - ESSENTIAL (PRIMARY) HYPERTENSION Qualifiers: Hypertension type: essential hypertension Qualified Code(s): I10 - Essential (primary) hypertension (17) History of coronary artery bypass graft Code(s): Z95.1 - PRESENCE OF AORTOCORONARY BYPASS GRAFT (18) History of percutaneous coronary intervention Code(s): Z98.89 - OTHER SPECIFIED POSTPROCEDURAL STATES * DO NOT USE * (19) Hypercholesterolemia Code(s): E78.0 - PURE HYPERCHOLESTEROLEMIA * DO NOT USE * (20) Hyperkalemia Code(s): E87.5 - HYPERKALEMIA (21) Inguinal hernia Code(s): K40.90 - UNIL INGUINAL HERNIA, W/O OBST OR GANGR, NOT SPCF RECUR (22) Intractable pain Code(s): R52 - PAIN, UNSPECIFIED (23) LLQ pain Code(s): R10.32 - LEFT LOWER QUADRANT PAIN (24) Left groin pain Code(s): R10.32 - LEFT LOWER QUADRANT PAIN (25) Lower extremity edema Code(s): R60.0 - LOCALIZED EDEMA (26) Lumbar disc herniation Code(s): M51.26 - OTHER INTERVERTEBRAL DISC DISPLACEMENT, LUMBAR REGION (27) Nosebleed Code(s): R04.0 - EPISTAXIS (28) PSVT (paroxysmal supraventricular tachycardia) Code(s): I47.1 - SUPRAVENTRICULAR TACHYCARDIA (29) Pneumonia Code(s): J18.9 - PNEUMONIA, UNSPECIFIED ORGANISM (30) Radiculopathy Code(s): M54.10 - RADICULOPATHY, SITE UNSPECIFIED Qualifiers: Spinal region: lumbar Qualified Code(s): M54.16 - Radiculopathy, lumbar region (31) Rheumatoid arthritis Code(s): M06.9 - RHEUMATOID ARTHRITIS, UNSPECIFIED (32) Rheumatoid arthritis involving ankle with positive rheumatoid factor Code(s): M05.779 - RHEU ARTHRIT W RHEU FACTOR OF UNSP ANK/FT W/O ORG/SYS INVOLV Qualifiers: Laterality: bilateral Qualified Code(s): M05.771 - Rheumatoid arthritis with rheumatoid factor of right ankle and foot without organ or systems involvement; M05.772 - Rheumatoid arthritis with rheumatoid factor of left ankle and foot without organ or systems involvement; M05.772 - Rheumatoid arthritis with rheumatoid factor of left ankle and foot without organ or systems involvement; M05.772 - Rheumatoid arthritis with rheumatoid factor of left ankle and foot without organ or systems involvement; M05.772 - Rheumatoid arthritis with rheumatoid factor of left ankle and foot without organ or systems involvement (33) Rheumatoid arthritis of multiple sites without organ or system involvement with positive rheumatoid factor Code(s): M05.79 - RHEU ARTHRITIS W RHEU FACTOR MULT SITE W/O ORG/SYS INVOLV (34) Sinus tachycardia Code(s): R00.0 - TACHYCARDIA, UNSPECIFIED Assessment/Plan - Problems (1) Abscess of calf Assessment/Plan: s/p drainage POD #1 F/u with surgeon; f/u cultures. Code(s): L02.419 - CUTANEOUS ABSCESS OF LIMB, UNSPECIFIED (2) Acute on chronic respiratory failure with hypoxemia Assessment/Plan: Pt has been attending pulmonary clinic (Dr. Neves). F?u ECHO for LVEF BNP nl. doubt CHF Code(s): J96.21 - ACUTE AND CHRONIC RESPIRATORY FAILURE WITH HYPOXIA (3) Anxiety Code(s): F41.9 - ANXIETY DISORDER, UNSPECIFIED (4) CAD (coronary artery disease) Assessment/Plan: s/p CABG ?2013 after coronary stents. Denies hx [place]. Aggressive lipid control with statin, diet, exercise. Code(s): I25.10 - ATHSCL HEART DISEASE OF [place] CORONARY ARTERY W/O ANG PCTRS Qualifiers: Coronary Disease-Associated Artery/Lesion type: [place] artery [place] vs. transplanted heart: [place] heart Associated angina: without angina Qualified Code(s): I25.10 - Atherosclerotic heart disease of [place] coronary artery without angina pectoris (5) COPD (chronic obstructive pulmonary disease) Assessment/Plan: BNP 66.47 Quit cigarettes when had CABG ? 2013. Code(s): J44.9 - CHRONIC OBSTRUCTIVE PULMONARY DISEASE, UNSPECIFIED Qualifiers: COPD type: emphysema Emphysema type: unspecified Qualified Code(s): J43.9 - Emphysema, unspecified
--- NOTE | 2017-11-10 14:10 | PN ---
Progress Note (short form) - Note Progress Note: Ortho Pt seen and examined s/p aspiration of calf. feeling better today. h/o of RA Selected Entries 11/10/17 06:00 Temperature 98.6 F Pulse Rate 92 H Respiratory 20 Rate Blood Pressure 122/72 Laboratory Tests 11/09/17 13:00 Synovial Source Synovial Synovial WBC 54941 Synovial Neutrophils 82 Synovial Crystals Negative cultures neg to date 1+ effusion, +ttp (improved), rom 0-110, calf less tense, nvi MRI + large joint effusion and bakers cyst a/p Fluid accumulation probably from RA, recent cultures neg No surgical intervention at this time elevation wbat ok to d/c from ortho pov can f/u as outpt d/w Dr. Horne
--- NOTE | 2017-11-10 14:27 | PN ---
Progress Note, Physician Chief Complaint: feels better History of Present Illness: 30 cc fluid removed from area MRI of the knee showed large amount of fluid in the knee - Current Medication List Current Medications: Active Medications Acetaminophen/Codeine Phosphate (Tylenol # 3 -) 1 tab PO Q6H PRN PRN Reason: PAIN 5-10 Last Admin: 11/10/17 11:14 Dose: 1 tab Albuterol Sulfate (Ventolin 0.083% Nebulizer Soln -) 1 amp NEB Q6H PRN PRN Reason: SHORT OF BREATH/WHEEZING Last Admin: 11/10/17 07:20 Dose: 1 amp Budesonide/Formoterol Fumarate (Symbicort 80/4.5mcg -) [address] [facility] Last Admin: 11/10/17 09:16 Dose: 1 puff Furosemide (Lasix -) [address] [facility] Last Admin: 11/10/17 09:16 Dose: 40 mg Mirtazapine (Remeron -) 7.[address] [facility] Last Admin: 11/09/17 21:42 Dose: 7.5 mg Prednisone (Deltasone -) [address] [facility] Last Admin: 11/10/17 09:16 Dose: 10 mg Ramipril (Altace -) [address] [facility] Last Admin: 11/10/17 09:20 Dose: 5 mg - Objective Vital Signs: Vital Signs Temperature 97.8 F 11/10/17 10:00 Pulse Rate 108 H 11/10/17 10:00 Respiratory Rate 20 11/10/17 10:00 Blood Pressure 126/74 11/10/17 10:00 O2 Sat by Pulse Oximetry (%) 100 11/10/17 09:00 Constitutional: Yes: Mild Distress Eyes: Yes: WNL HENT: Yes: WNL Neck: Yes: WNL Cardiovascular: Yes: Regular Rate and Rhythm Respiratory: Yes: On Nasal O2 Genitourinary: Yes: WNL Musculoskeletal: Yes: Joint Stiffness Labs: CBC, BMP 11/05/17 21:13 11/05/17 21:13 INR, PTT INR 1.10 (0.82-1.09) 11/05/17 21:13 Assessment/Plan Will discuss with Dr Delcid
[2017-11-10] MEDS: MIRTAZAPINE 15 MG TABLET (FP) PO SCH (21:29)
[2017-11-11] MEDS: ALBUTEROL SO4 0.083% IH SOL 2.5 MG/3 ML VIAL.NEB. NEB PRN (08:30)
--- NOTE | 2017-11-11 09:03 | DS ---
Physical Examination Vital Signs: Vital Signs Temperature 98 F 11/11/17 06:58 Pulse Rate 99 H 11/11/17 06:58 Respiratory Rate 20 11/11/17 06:58 Blood Pressure 114/68 11/11/17 06:58 O2 Sat by Pulse Oximetry (%) 100 11/10/17 21:00 Constitutional: Yes: Anxious, Pallor HENT: Yes: WNL Neck: Yes: WNL Cardiovascular: Yes: WNL Respiratory: Yes: On Nasal O2 ...Rectal Exam: Yes: WNL Breast(s): Yes: WNL Musculoskeletal: Yes: Joint Swelling Extremities: Yes: Calf Tenderness Edema: RLE: 1+ Neurological: Yes: Alert Psychiatric: Yes: Alert Labs: CBC, BMP 11/05/17 21:13 11/05/17 21:13 Discharge Summary Reason For Visit: ABSCELL OF CALF Current Active Problems Abscess of calf (Acute) Pain and swelling of right lower leg (Acute) Condition: Guarded - Instructions Referrals: Yohana Hendrix MD [Primary Care Provider] - - Home Medications Comprehensive Discharge Medication List: Ambulatory Orders Albuterol 2.5/Ipratropium 0.5 [Duoneb -] 1 amp NEB QIDR amp 05/27/16 Budesonide/Formeterol Fumarate [SYMBICORT 80/4.5mcg -] 1 puff IH BID inhaler Clopidogrel Bisulfate [Plavix -] 75 mg PO DAILY tablet 05/27/16 Furosemide [Lasix -] 40 mg PO DAILY tablet 05/27/16 predniSONE [Deltasone -] 10 mg PO DAILY 08/25/16 Ramipril 5 mg PO DAILY 12/27/16 Simvastatin 40 mg PO DAILY 12/27/16 Acetaminophen W/ Codeine #3 [Tylenol # 3 -] 1 tab PO BID 10/20/17
[2017-11-11] MEDS ORDERED: PT OWN MED DRAWER 7, Y5N ONE (09:22)
--- NOTE | 2017-11-11 09:26 | PN ---
Progress Note (short form) - Note Progress Note: Pt seen and examined. He states his left calf/lower leg still hurts, but is improving. He is able to ambulate and fully weight bear. NVI Good ROM throughout Still has moderate swelling of the left calf, ankle, lower leg. No drainage, no tense compartments. Fluid more consistent with RA inflammatory fluid than acute infection Imp Overall doing better, still with some pain and swelling. Rec Better elevation more of the day Can ambulate, WBAT No surgical intervention needed at this time
[2017-11-11] MEDS: FUROSEMIDE 40 MG TABLET (FP) PO SCH (09:58)
[2017-11-11] MEDS: predniSONE 10 MG TABLET (UD) PO SCH (09:58)
[2017-11-11] MEDS: RAMIPRIL 5 MG CAPSULE (FP) PO SCH (09:58)
[2017-11-11] MEDS: BUDESONIDE/FORMETEROL FUMARATE 80/4.5 mcg INHALER IH SCH (09:58)
[2017-11-11] MEDS: ACETAMINOPHEN WITH CODEINE 300MG/30MG TABLET PO PRN (10:04)
[2017-11-11 10:36] VITALS: BP 120/77; PULSE 120; TEMP 98.8
== END 2017-11-11 13:24 | disposition home or self-care (01) | DRG 545 ==
LOC: JER 20:12 → JERBED 11-06 00:49 → J8W 11-06 04:24
PROVIDERS: ADMIT Internal Medicine; ATTEND Internal Medicine
PROC: 0Y9H3ZX Drainage of Right Lower Leg, Percutaneous Approach, Diagnostic (ICD-10-PCS; principal; 2017-11-06)
PROC: 0S9C3ZX Drainage of Right Knee Joint, Percutaneous Approach, Diagnostic (ICD-10-PCS; 2017-11-09)
DX: M06.9 Rheumatoid arthritis, unspecified (principal); J96.21 Acute and chronic respiratory failure with hypoxia; I50.32 Chronic diastolic (congestive) heart failure; L02.415 Cutaneous abscess of right lower limb; M66.0 Rupture of popliteal cyst; M25.461 Effusion, right knee; I25.10 Atherosclerotic heart disease of native coronary artery without angina pectoris; E78.5 Hyperlipidemia, unspecified; J43.9 Emphysema, unspecified; Z99.81 Dependence on supplemental oxygen; M54.9 Dorsalgia, unspecified; Z87.891 Personal history of nicotine dependence; Z95.1 Presence of aortocoronary bypass graft; F41.9 Anxiety disorder, unspecified; I11.0 Hypertensive heart disease with heart failure; M23.8X1 Other internal derangements of right knee
CPT/HCPCS: 36415; 73718-TC; 73721-RT-TC; 80053; 80061; 82150; 82945; 83615; 83721; 83880; 84157; 84439; 85025; 85610; 87070; 87075; 87186; 87205; 89051; 89060; 93005; 93010; 93306-TC; 93971-TC; 94640; 99282-25

== ENCOUNTER 2018-05-25 13:27 | Emergency (ER) | payer OTHER ==
[2018-05-25 13:31] VITALS: BP 115/66; TEMP 98.6; BMI 22.3
[2018-05-25] MEDS ORDERED: ALBUTEROL SO4 2.5/IPRATROPIUM 0.5 INH SOL 3 ML VIAL.NEB. NEB ONE ×2 (16:05→16:54)
--- NOTE | 2018-05-25 16:24 | PDOC ---
History of Present Illness - History of Present Illness Initial Comments: Moses Noel Jr is a 63yo man with a PMH of CAD s/p CABG, COPD on home O2, HTN, HLD, CHF, RA on methotrexate, and anxiety who was sent to the ED by his primary physician for tachycardia and report of blood-tinged sputum and nasal secretions recently. Mr Noel reports that he has noticed some blood 'sometimes" when he coughs or blows his nose. He denies any significant episodes of bleeding at any point. He says that he actually feels at his baseline state of health, but he went to see his PMD about the blood. He reports that he was told that his heartbeat is very fast and that he needed to be seen in the ED because it might be something serious. He says that he was a little confused about the need to be seen because his heart rate is "always fast" and he believes it is due to his frequent albuterol use. 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 <Awilda Cho - Last Filed: 05/25/18 19:25> <Elisa Parks - Last Filed: 05/25/18 20:09> - General Chief Complaint: Tachycardia Stated Complaint: TACHYCARDIA (PCP SENT) Past History - Past Medical History Anemia: No Asthma: No Cancer: No Cardiac Disorders: Yes (SD, stent, BYPASS) CVA: No COPD: Yes (2L) CHF: Yes Dementia: No Diabetes: No GI Disorders: No Disorders: No HTN: Yes Hypercholesterolemia: Yes Liver Disease: No Psychiatric Problems: Yes (anxiety) Seizures: No Thyroid Disease: No - Surgical History Abdominal Surgery: No Appendectomy: No Cardiac Surgery: Yes (Stent, cardiaccath) Cholecystectomy: No Lung Surgery: No Neurologic Surgery: No Orthopedic Surgery: Yes (KNEE) - Immunization History Immunization Up to Date: Yes - Suicide/Smoking/Psychosocial Hx Smoking Status: No Smoking History: Unknown if ever smoked Have you smoked in the past 12 months: No Number of Cigarettes Smoked Daily: 0 If you are a former smoker, when did you quit?: 3YRS Hx Alcohol Use: No Drug/Substance Use Hx: No Substance Use Type: None Hx Substance Use Treatment: No <Awilda Cho - Last Filed: 05/25/18 19:25> <Elisa Parks Kaseyrosalinda - Last Filed: 05/25/18 20:09> - Past Medical History Allergies/Adverse Reactions: Allergies Allergy/AdvReac Type Severity Reaction Status Date / Time Penicillins Allergy Severe Rash Verified 05/25/18 13:31 seafood Allergy Severe Rash Uncoded 05/25/18 13:31 Home Medications: Ambulatory Orders Albuterol Sulfate Inhaler - [Ventolin Hfa Inhaler -] 1 - 2 inh PO Q4H PRN Budesonide/Formeterol Fumarate [SYMBICORT 160/4.5mcg -] 1 inh PO BID 05/25/18 Clopidogrel Bisulfate [Plavix] 75 mg PO DAILY 05/25/18 Folic Acid 1 mg PO DAILY 05/25/18 Furosemide [Lasix] 40 mg PO DAILY 05/25/18 Hydroxychloroquine Sulfate [Plaquenil] 200 mg PO BID 05/25/18 Methotrexate [Mexate -] 15 mg PO Q7D 05/25/18 Ramipril [Altace] 5 mg PO DAILY 05/25/18 Simvastatin [Zocor -] 40 mg PO HS 05/25/18 Review of Systems - Review of Systems Comments:: General: No fevers, no chills, no weight or appetite change, no malaise HEENT: No changes in vision, no changes in hearing, no congestion, no sore throat. +blood-tinged rhinorrhea CV: No chest pain, no palpitations, +chronic LE edema Pulm: +COPD, on home O2, no changes GI: No nausea or vomiting, no change in bowel habits, no melena. +heartburn : No frequency, no urgency, no dysuria Musc: +RA involving multiple joints. No recent injury Skin: No rash, no lesions, no erythema Endo: No excessive thirst, no heat/cold intolerance Heme: No unusual bruising or bleeding, no swollen glands Neuro: No syncope, no numbness/tingling, no focal weakness Vasc: No claudication Psych: No recent change in mood, no SI or HI <RaphaelAwilda hurd - Last Filed: 05/25/18 19:25> *Physical Exam - Vital Signs Last Vital Signs Temp Pulse Resp BP Pulse Ox 98.6 F 130 H 18 115/66 94 L 05/25/18 13:28 05/25/18 13:28 05/25/18 13:28 05/25/18 13:28 05/25/18 13:28 - Physical Exam Comments: General: Comfortable, no acute distress HEENT: PERRL, EOMI, voice normal, normal neck ROM, no LAD Cards: Tachycardic, regular, no murmur appreciated Pulm: Comfortable on supplemental O2 by NC. Poor air movement diffusely. No wheezing, crackles appreciated. Abd: Soft, nontender, nondistended Ext: Atraumatic. BLE 2+ pitting edema. Multiple joints warm, swollen (baseline per pt). ROM intact. Strength 5/5 and equal bilaterally Vasc: Extremities WWP. Skin: Normal color, no rashes or lesions Neuro: A&Ox3, CN grossly intact, normal speech, motor/sensory grossly intact and symmetric Psych: Mood appropriate to situation <Awilda Cho - Last Filed: 05/25/18 19:25> - Vital Signs Last Vital Signs Temp Pulse Resp BP Pulse Ox 98.6 F 118 H 20 115/66 100 05/25/18 13:28 05/25/18 17:27 05/25/18 17:27 05/25/18 13:28 05/25/18 17:27 <Elisa Parks - Last Filed: 05/25/18 20:09> Moderate Sedation - Procedure Monitoring Vital Signs: Procedure Monitoring Vital Signs Temperature 98.6 F 05/25/18 13:28 Pulse Rate 130 H 05/25/18 13:28 Respiratory Rate 18 05/25/18 13:28 Blood Pressure 115/66 05/25/18 13:28 O2 Sat by Pulse Oximetry (%) 94 L 05/25/18 13:28 <Awilda Cho - Last Filed: 05/25/18 19:25> - Procedure Monitoring Vital Signs: Procedure Monitoring Vital Signs Temperature 98.6 F 05/25/18 13:28 Pulse Rate 118 H 05/25/18 17:27 Respiratory Rate 20 05/25/18 17:27 Blood Pressure 115/66 05/25/18 13:28 O2 Sat by Pulse Oximetry (%) 100 05/25/18 17:27 <Elisa Parks - Last Filed: 05/25/18 20:09> ED Treatment Course - LABORATORY CBC & Chemistry Diagram: 05/25/18 16:42 05/25/18 16:42 - RADIOLOGY Radiology Studies Ordered: Category Date Time Status CHEST PA & LAT [RAD] Stat Radiology 05/25/18 15:58 Ordered <Awilda Cho - Last Filed: 05/25/18 19:25> - LABORATORY CBC & Chemistry Diagram: 05/25/18 16:42 05/25/18 16:42 - ADDITIONAL ORDERS Additional order review: Laboratory Results 05/25/18 05/25/18 05/25/18 18:17 18:17 16:42 PT with INR 14.10 H INR 1.19 H PTT (Actin FS) 28.3 Sodium 133 L Potassium 5.2 H Chloride 95 L Carbon Dioxide 31 Anion Gap 8 BUN 14 Creatinine 0.9 Creat Clearance w eGFR > 60 Random Glucose 84 Calcium 9.3 Total Bilirubin 0.9 AST 23 ALT 18 Alkaline Phosphatase 187 H Total Protein 7.8 Albumin 3.2 L TSH 1.26 D 05/25/18 16:42 RBC 3.98 L MCV 82.8 MCHC 34.6 RDW 16.2 H MPV 7.4 L Neutrophils % 76.9 Lymphocytes % 13.3 D Monocytes % 9.0 Eosinophils % 0.4 Basophils % 0.4 - RADIOLOGY Radiology Studies Ordered: Category Date Time Status CHEST CTA [CT] Stat CT Scan 05/25/18 18:13 Ordered DUPLEX VASCUL US-1 LEG [US] Stat Ultrasound 05/25/18 18:13 Completed - Medications Given in the ED: ED Medications Discontinued Medications Generic Name Dose Route Start Last Admin Trade Name Mauriq PRN Reason Stop Dose Admin Albuterol/Ipratropium 1 amp 05/25/18 16:05 05/25/18 17:00 Duoneb - NEB 05/25/18 16:06 1 amp ONCE ONE Administration Sodium Chloride 1,000 ml 05/25/18 16:35 05/25/18 18:35 Normal Saline - IV 05/25/18 16:36 Not Given ONCE ONE Sodium Chloride 500 ml 05/25/18 17:05 05/25/18 18:35 Normal Saline - IV 05/25/18 17:06 500 ml ONCE ONE Administration <Elisa Parks - Last Filed: 05/25/18 20:09> Medical Decision Making - Medical Decision Making 05/25/18 16:24 Moses Noel Jr is a 63yo...... - Per pt, feels at baseline. Vitals initially with tachycardia to 130, but HR 122 on EKG similar to previously recorded vitals. BP appears to be at pt's baseline - EKG with RBBB, similar to previous in chart - CBC, CMP, CXR, influenza swab for evaluation 05/25/18 19:27 - Labs reviewed, no concerning abnormalities - CXR without acute pathology - Tachycardia down to 118 per minute - Seen by Dr Parks. Patient reporting rt calf pain. Ordered right duplex ultrasound to r/o DVT and CTA to evaluate for PE given tachycardia. Patient signed out to Dr Sky. Discussed with Dr Parks. Awilda Cho PGY1 <Awilda Cho - Last Filed: 05/25/18 19:25> *DC/Admit/Observation/Transfer <Awilda Cho - Last Filed: 05/25/18 19:25> <Elisa Parks - Last Filed: 05/25/18 20:09> Diagnosis at time of Disposition: Sinus tachycardia, Leg pain - Referrals Referrals: Yohana Hendrix MD [Primary Care Provider] - - Patient Instructions - Post Discharge Activity
--- NOTE | 2018-05-25 16:34 | PDOC ---
Attending Attestation - Resident Resident Name: MarquisAwilda - ED Attending Attestation I have performed the following: I have examined & evaluated the patient, The case was reviewed & discussed with the resident, I agree w/resident's findings & plan - HPI HPI: 05/25/18 20:03 63YOM, with a significant past medical history of HIV (according to CONFIDENTIAL SECRETARY note from today, viral load controlled) HTN, DM, COPD, CAD, CVA and prostate cancer, who presents to the emergency department with, tachycardia. Patient was being seen at his PCPs office for slight hemoptysis and blood tinged nasal congestion when he blows his nose and was noted to be tachycardic. Patient endorses right calf pain which he believes is chronic, which he attributed to RA. He denies any recent fevers, chills, headache or dizziness. He denies any recent nausea, vomit, diarrhea or constipation. He denies any recent chest pain or shortness of breath. He denies any recent dysuria, frequency, urgency or hematuria. Allergies: Seafood. Social History: Former smoker. No alcohol. No illicit drugs. Surgical History: CABG, Stent PMD: Dr. Hendrix, Dr. Delcid - Physicial Exam PE: 05/25/18 20:03 NAD, well appearing, speaking clear sentences. PERRL, EOMI, MMM, nl conjunctiva , anicteric; neck supple. on supp O2. lungs clear, RRR, abdomen soft nontender. GONZALES x4, no focal neuro deficits. No peripheral edema. +RLE calf tenderness, popliteal tenderness. normal color for ethnicity, WWP. NVI - Medical Decision Making 05/25/18 20:04 DDx SOB: ACS, DVT, PE, CHF, pulmonary edema, pleurisy, pneumonia, viral syndrome. effusion. anemia, electrolyte/metabolic derangements. vitals with tachycardia in 130s (always elevated, baseline in high 90s to 120s) . on baseline O2 supplementation. spO2 94% on O2 but comfortable, speaking full sentences. labs and lytes normal, flu neg. coags normal. CXR with copd hyperinflated lungs, no focal infiltrate. EKG with sinus tachy 122 bpm, also old RBBB, no change from prior. Duplex and CTA to r/o DVt/PE respectively as he is tachycardic and has risk factors and higher tachycardia than usual. dispo ending per results. 05/25/18 20:05 05/25/18 20:06 05/25/18 20:08 Heart Score/ECG Review - ECG Impressions Normal ECG: Yes Tachycardia: Sinus Comment:: 05/25/18 20:07 EKG sinus tachycardia, no interval abnormalities, wide QRS, RBBB, ST and T wave segments and morphology normal. Nonspecific T wave abnormalities - unchanged from prior.
[2018-05-25] MEDS ORDERED: SODIUM CHLORIDE 0.9% 500 ML INFUS.BAG IV ONE ×2 (16:35→17:05)
[2018-05-25 17:16] LABS: BASO % 0.4 % (0-2.0); EOS % 0.4 % (0-4.5); HEMATOCRIT 32.9 % (35.4-49); HEMOGLOBIN 11.4 GM/dL (11.7-16.9); LYMPH % 13.3 % (8-40); MCH 28.6 pg (25.7-33.7); MCHC 34.6 g/dl (32.0-35.9); MEAN CELL VOLUME 82.8 fl (80-96); MEAN PLT VOLUME 7.4 fl (7.5-11.1); NEUT % 76.9 % (42.8-82.8); PLATELET COUNT 554 K/MM3 (134-434); RBC 3.98 M/mm3 (4.00-5.60); RDW 16.2 % (11.9-15.9)
[2018-05-25 17:28] VITALS: PULSE 118
[2018-05-25 17:45] LABS: ALBUMIN 3.2 g/dl (3.4-5.0); ALK PHOS 187 U/L (45-117); ANION GAP 8 MMOL/L (8-16); BILIRUBIN,TOTAL 0.9 mg/dL (0.2-1); BLOOD UREA NITROGEN 14 mg/dL (7-18); CALCIUM 9.3 mg/dL (8.5-10.1); CHLORIDE 95 mmol/L (98-107); CO2 31 mmol/L (21-32); CREATININE 0.9 mg/dL (0.55-1.3); GLUCOSE,RANDOM 84 mg/dL (74-106); POTASSIUM 5.2 mmol/L (3.5-5.1); SGOT/AST 23 U/L (15-37); SGPT/ALT 18 U/L (13-61); SODIUM 133 mmol/L (136-145); TOT PROT 7.8 g/dl (6.4-8.2)
[2018-05-25 18:44] LABS: INR 1.19 (0.83-1.09); PROTHROMBIN TIME (PATIENT) 14.1 SEC (9.7-13.0)
[2018-05-25 18:47] LABS: ACTIVATED PTT 28.3 SECONDS (25.2-36.5)
--- NOTE | 2018-05-26 11:59 | EKG ---
Test Reason : Blood Pressure : / mmHG Vent. Rate : 122 BPM Atrial Rate : 122 BPM P-R Int : 134 ms QRS Dur : 122 ms QT Int : 324 ms P-R-T Axes : 086 109 074 degrees QTc Int : 461 ms SINUS TACHYCARDIA POSSIBLE LEFT ATRIAL ENLARGEMENT RIGHT BUNDLE BRANCH BLOCK ABNORMAL ECG WHEN COMPARED WITH ECG OF 09-NOV-2017 09:09, QRS DURATION HAS DECREASED Confirmed by ARABELLA PIZANO MD ([id number]) on 05/26/2018 11:59:15 AM Referred By: Confirmed By:ARABELLA PIZANO MD
== END 2018-05-25 21:59 | disposition home or self-care (01) ==
LOC: JER 13:27
PROC: 3E0F7GC Introduction of Other Therapeutic Substance into Respiratory Tract, Via Natural or Artificial Opening (ICD-10-PCS; principal; 2018-05-25)
PROC: 3E0337Z Introduction of Electrolytic and Water Balance Substance into Peripheral Vein, Percutaneous Approach (ICD-10-PCS; 2018-05-25)
DX: R00.0 Tachycardia, unspecified (principal); M79.606 Pain in leg, unspecified; I25.10 Atherosclerotic heart disease of native coronary artery without angina pectoris; Z95.1 Presence of aortocoronary bypass graft; J44.9 Chronic obstructive pulmonary disease, unspecified; I10 Essential (primary) hypertension; E78.5 Hyperlipidemia, unspecified; M06.9 Rheumatoid arthritis, unspecified
CPT/HCPCS: 36415; 71046-TC-FY; 71275-TC; 80053; 84443; 85025; 85610; 85730; 87804; 93005; 93010; 93971-TC; 94640; 96360; 99282-25

== ENCOUNTER 2019-06-04 19:45 | Inpatient (IN) | payer OTHER ==
--- NOTE | 2019-06-04 20:02 | PDOC ---
History of Present Illness - General Chief Complaint: Shortness of Breath Stated Complaint: DIFFICULTY BREATHING Time Seen by Provider: 06/04/19 20:00 - History of Present Illness Initial Comments: 06/04/19 20:01 HPI: Patient denies fever, chills, night sweats, SIDDIQUI, vision change, chest pain, palpitations, SOB, cough, leg swelling, abdominal pain, nausea, vomiting, diarrhea, constipation, dysuria, hematuria, BPR, lightheadedness, weakness, sensory changes. PMHx: as noted above ROS: as noted SHx: Denies tobacco use; no alcohol use; no rec drugs Allergies: NKDA ROS: GENERAL/CONSTITUTIONAL: No fever or chills. No weakness. HEAD, EYES, EARS, NOSE AND THROAT: No change in vision. No ear pain or discharge. No sore throat. CARDIOVASCULAR: No chest pain or shortness of breath RESPIRATORY: No cough, wheezing, or hemoptysis. GASTROINTESTINAL: No nausea, vomiting, diarrhea or constipation. GENITOURINARY: No dysuria, frequency, or change in urination. MUSCULOSKELETAL: No joint or muscle swelling or pain. No neck or back pain. SKIN: No rash NEUROLOGIC: No headache, vertigo, loss of consciousness, or change in strength/ sensation. ENDOCRINE: No increased thirst. No abnormal weight change HEMATOLOGIC/LYMPHATIC: No anemia, easy bleeding, or history of blood clots. ALLERGIC/IMMUNOLOGIC: No hives or skin allergy. PE: GENERAL: Awake, alert, and fully oriented, no acute distress HEAD: No signs of trauma, normocephalic, atraumatic EYES: EOMI, sclera anicteric, conjunctiva clear ENT: Auricles normal inspection, hearing grossly normal, nares patent, oropharynx clear without exudates. Moist mucosa NECK: Normal ROM, no lymphadenopathy LUNGS: No increased work of breathing, symmetrical chest rise, clear to auscultation bilaterally, no wheezes, crackles or rhonchi HEART: Regular rate and rhythm, normal S1 and S2, no murmurs, peripheral pulses 2+ and equal bilaterally. ABDOMEN: Soft, nondistended, nontender, normoactive bowel sounds. No guarding, no rebound. No masses. No CVAT EXTREMITIES: Normal inspection, Normal range of motion, no edema. No clubbing or cyanosis. NEUROLOGICAL: Cranial nerves II through XII grossly intact. Normal speech, normal gait, no focal sensorimotor deficits SKIN: Warm, Dry, normal turgor, no rashes or lesions noted Past History - Past Medical History Allergies/Adverse Reactions: Allergies Allergy/AdvReac Type Severity Reaction Status Date / Time Penicillins Allergy Severe Rash Verified 05/25/18 13:31 seafood Allergy Severe Rash Uncoded 05/25/18 13:31 Home Medications: Ambulatory Orders Albuterol Sulfate Inhaler - [Ventolin Hfa Inhaler -] 1 - 2 inh PO Q4H PRN Budesonide/Formeterol Fumarate [SYMBICORT 160/4.5mcg -] 1 inh PO BID 05/25/18 Clopidogrel Bisulfate [Plavix] 75 mg PO DAILY 05/25/18 Folic Acid 1 mg PO DAILY 05/25/18 Furosemide [Lasix] 40 mg PO DAILY 05/25/18 Hydroxychloroquine Sulfate [Plaquenil] 200 mg PO BID 05/25/18 Methotrexate [Mexate -] 15 mg PO Q7D 05/25/18 Ramipril [Altace] 5 mg PO DAILY 05/25/18 Simvastatin [Zocor -] 40 mg PO HS 05/25/18 Anemia: No Asthma: No Cancer: No Cardiac Disorders: Yes ([place], stent, BYPASS) CVA: No COPD: Yes (2L) CHF: Yes Dementia: No Diabetes: No GI Disorders: No Disorders: No HTN: Yes Hypercholesterolemia: Yes Liver Disease: No Psychiatric Problems: Yes (anxiety) Seizures: No Thyroid Disease: No - Surgical History Abdominal Surgery: No Appendectomy: No Cardiac Surgery: Yes (Stent, cardiaccath) Cholecystectomy: No Lung Surgery: No Neurologic Surgery: No Orthopedic Surgery: Yes (KNEE) - Immunization History Immunization Up to Date: Yes - Psycho Social/Smoking Cessation Hx Smoking Status: No Smoking History: Unknown if ever smoked Have you smoked in the past 12 months: No Number of Cigarettes Smoked Daily: 0 If you are a former smoker, when did you quit?: 3YRS Hx Alcohol Use: No Drug/Substance Use Hx: No Substance Use Type: None Hx Substance Use Treatment: No
[2019-06-04] MEDS ORDERED: MAGNESIUM SULF 50% (8.12 MEQ/2 ML-1 GM VIAL) IVPB ONE (20:24)
[2019-06-04] MEDS ORDERED: ALBUTEROL SO4 2.5/IPRATROPIUM 0.5 INH SOL 3 ML VIAL.NEB. NEB ONE ×2 (20:24→20:45)
[2019-06-04] MEDS ORDERED: methylPREDNISolone NA SUCC 125 MG/2 ML VIAL IVPB ONE (20:24)
[2019-06-04] MEDS ORDERED: methylPREDNISolone NA SUCC 125 MG/2 ML VIAL ONE (20:43)
[2019-06-04] MEDS ORDERED: MAGNESIUM 1GM/D5W - 2 GM/200 ML IVPB IVPB ONE (20:44)
[2019-06-04 20:52] LABS: BASO % 0.2 % (0-2.0); HEMATOCRIT 44.2 % (35.4-49); LYMPH % 2.4 % (8-40); MCH 29.6 pg (25.7-33.7); MCHC 31.7 g/dl (32.0-35.9); MEAN CELL VOLUME 93.3 fl (80-96); MEAN PLT VOLUME 7.5 fl (7.5-11.1); MONO % 9.5 % (3.8-10.2); NEUT % 87.9 % (42.8-82.8); PLATELET COUNT 367 K/MM3 (134-434); RBC 4.74 M/mm3 (4.00-5.60); RDW 15.8 % (11.9-15.9); WHITE BLOOD COUNT 22.7 K/mm3 (4.0-10.0)
[2019-06-04] MEDS ORDERED: VANCOMYCIN 1,000 MG in DEXTROSE 5%-WATER - 250 ML IVPB ONE (20:53)
[2019-06-04] MEDS ORDERED: AZTREONAM 1 GM VIAL (RESTRICTED TO ID) IVPB ONE (20:55)
[2019-06-04] MEDS ORDERED: PROPOFOL 1,000,000 MCG/100 ML VIAL ONE (20:56)
[2019-06-04] MEDS ORDERED: PROPOFOL 20 ML ONE (20:56)
[2019-06-04] MEDS ORDERED: RAPID SEQUENCE INTUBATION KIT NR ONE (20:57)
[2019-06-04] MEDS ORDERED: SUCCINYLCHOLINE CHLORIDE 200 MG/10 ML VIAL IVPUSH ONE (21:00)
[2019-06-04] MEDS ORDERED: ETOMIDATE 20 MG/10 ML AMPUL IVPUSH ONE (21:00)
[2019-06-04 21:21] LABS: ALBUMIN 3.9 g/dl (3.4-5.0); ALK PHOS 102 U/L (45-117); ANION GAP 6 MMOL/L (8-16); BILIRUBIN,TOTAL 1.2 mg/dL (0.2-1); BLOOD UREA NITROGEN 23.9 mg/dL (7-18); CALCIUM 8.8 mg/dL (8.5-10.1); CHLORIDE 96 mmol/L (98-107); CO2 35 mmol/L (21-32); GLUCOSE,RANDOM 123 mg/dL (74-106); POTASSIUM 5.2 mmol/L (3.5-5.1); SGOT/AST 29 U/L (15-37); SGPT/ALT 34 U/L (13-61); SODIUM 137 mmol/L (136-145); TOT PROT 7.5 g/dl (6.4-8.2)
--- NOTE | 2019-06-04 21:31 | PDOC ---
History of Present Illness - General Chief Complaint: Shortness of Breath Stated Complaint: DIFFICULTY BREATHING Time Seen by Provider: 06/04/19 20:00 History Source: Patient Exam Limitations: No Limitations - History of Present Illness Initial Comments: 06/04/19 22:40 63yo man with a PMH of CAD s/p CABG, COPD on home O2 (on a list for lung transplant), HTN, HLD, HIV, CHF, RA on methotrexate, and anxiety presents to the emergency department with respiratory distress from home. Per the patient's family member, he was having SOB today over the past 24 hours and was increasingly short of breath. Per the daughter, she states he wanted to present earlier but did not. On history intake, the patient was speaking in 1 word answers and lethargic. He stated he felt short of breath and had chest tightness. Denies fevers, nausea, vomiting, dysuria, abdominal pain. Allergies: PCN Past History - Past Medical History Allergies/Adverse Reactions: Allergies Allergy/AdvReac Type Severity Reaction Status Date / Time Penicillins Allergy Severe Rash Verified 06/04/19 20:16 seafood Allergy Severe Rash Uncoded 06/04/19 20:16 Home Medications: Ambulatory Orders Albuterol Sulfate Inhaler - [Ventolin Hfa Inhaler -] 1 - 2 inh PO Q4H PRN Budesonide/Formeterol Fumarate [SYMBICORT 160/4.5mcg -] 1 inh PO BID 05/25/18 Clopidogrel Bisulfate [Plavix] 75 mg PO DAILY 05/25/18 Folic Acid 1 mg PO DAILY 05/25/18 Furosemide [Lasix] 40 mg PO DAILY 05/25/18 Hydroxychloroquine Sulfate [Plaquenil] 200 mg PO BID 05/25/18 Methotrexate [Mexate -] 15 mg PO Q7D 05/25/18 Ramipril [Altace] 5 mg PO DAILY 05/25/18 Simvastatin [Zocor -] 40 mg PO HS 05/25/18 Azithromycin 1 tab PO WEEKLY 06/04/19 Clonazepam 0.5 mg PO BID 06/04/19 Fluticasone/Umeclidin/Vilanter [Trelegy Ellipta 100-62.5-25] 1 puff 06/04/19 Anemia: No Asthma: No Cancer: No Cardiac Disorders: Yes ([place], stent, BYPASS) CVA: No COPD: Yes (2L) CHF: Yes Dementia: No Diabetes: No GI Disorders: No Disorders: No HTN: Yes Hypercholesterolemia: Yes Liver Disease: No Psychiatric Problems: Yes (anxiety) Seizures: No Thyroid Disease: No - Surgical History Abdominal Surgery: No Appendectomy: No Cardiac Surgery: Yes (Stent, cardiaccath) Cholecystectomy: No Lung Surgery: No Neurologic Surgery: No Orthopedic Surgery: Yes (KNEE) - Immunization History Immunization Up to Date: Yes - Psycho Social/Smoking Cessation Hx Smoking Status: No Smoking History: Unknown if ever smoked Have you smoked in the past 12 months: No Number of Cigarettes Smoked Daily: 0 If you are a former smoker, when did you quit?: 3YRS Hx Alcohol Use: No Drug/Substance Use Hx: No Substance Use Type: None Hx Substance Use Treatment: No Review of Systems - Review of Systems Able to Perform ROS?: No (AMS) *Physical Exam - Vital Signs Last Vital Signs Temp Pulse Resp BP Pulse Ox 108 H 24 H 123/60 99 06/04/19 20:12 06/04/19 20:12 06/04/19 20:12 06/04/19 20:42 Procedures - Intubation Intubation Method: orotracheal Blade used: Mac Tube Size (Fr): 7.0 Medications: Etomidate, Succinylcholine Tube position @ lip (cm): 24 Tube position confirmed by: Direct visualization, CO2 detector, Chest x-ray, Breath sounds Breath Sounds after Intubation: equal Intubation Complications: no complications Post Intubation Xray: Yes ED Treatment Course - LABORATORY CBC & Chemistry Diagram: 06/07/19 06:30 06/07/19 06:30 - ADDITIONAL ORDERS Additional order review: Laboratory Results 06/04/19 06/04/19 20:30 20:30 Anticoagulation Therapy No Result Required. O2 Delivery Device No Result Required. Oxygen Flow Rate No Result Required. Vent Mode No Result Required. Vent Rate No Result Required. Mechanical Rate No Result Required. Pressure Support Vent No Result Required. Sodium 137 Potassium 5.2 H Chloride 96 L Carbon Dioxide 35 H Anion Gap 6 L BUN 23.9 H Creatinine 1.0 Est GFR (CKD-EPI)AfAm 93.08 Est GFR (CKD-EPI)NonAf 80.31 Random Glucose 123 H Calcium 8.8 Total Bilirubin 1.2 H AST 29 ALT 34 Alkaline Phosphatase 102 Total Protein 7.5 Albumin 3.9 - RADIOLOGY Radiology Studies Ordered: Category Date Time Status HEAD CT WITHOUT CONTRAST [CT] Stat CT Scan 06/04/19 20:23 Ordered - Medications Given in the ED: ED Medications Discontinued Medications Generic Name Dose Route Start Last Admin Trade Name Rafi PRN Reason Stop Dose Admin Albuterol/Ipratropium 3 amp 06/04/19 20:24 06/04/19 20:40 Duoneb - NEB 06/04/19 20:25 3 amp ONCE ONE Administration Magnesium Sulfate 2 gm 06/04/19 20:24 06/04/19 20:40 Magnesium Sulfate IVPB 06/04/19 20:25 2 gm ONCE ONE Administration Methylprednisolone Sodium Succinate 125 mg 06/04/19 20:24 06/04/19 20:40 Solu-Medrol - IVPB 06/04/19 20:25 125 mg ONCE ONE Administration Medical Decision Making - Medical Decision Making 06/04/19 21:47 63yo man with a PMH of CAD s/p CABG, COPD on home O2 (on a list for lung transplant), HTN, HLD, HIV, CHF, RA on methotrexate, and anxiety presents to the emergency department with respiratory distress from home. Initial vitals: Initial Vital Signs Temp Pulse Resp BP Pulse Ox 98.7 F 103 H 27 H 147/56 L 100 06/04/19 19:45 06/04/19 19:45 06/04/19 19:45 06/04/19 19:45 06/04/19 19:45 Work up: COPD exacerbation likely given past medical history over CHF exacerbation based on POCUS and physical exam PE: severe decreased breath sounds with audible rhonchi cardiac: rrr without murmurs abdomen: diffusely tender on palpation PCOUS: echo shows decreased EF with LV lateral wall motion abnormality, no b lines on US, IVC 100% collapsible. no pericardial effusion. no pleural effusion Patient was placed on bipap given suspected hypercarbia respiratory failure. the patient was placed on for 15 minutes and determined to have worsening mental status. initially, the patient would respond to verbal and physical stimulation. Currently, the patient is not responding to physical stimulation but maintaining 100% O2 on 100% FiO2 on bipap. Consent to intubate obtained from patient's daughter. Laboratory Tests 06/04/19 06/04/19 06/04/19 20:20 20:30 20:30 WBC 22.7 H RBC 4.74 Hgb 14.0 Hct 44.2 D MCV 93.3 MCH 29.6 MCHC 31.7 L RDW 15.8 Plt Count 367 D MPV 7.5 Absolute Neuts (auto) 20.0 H Total Counted 100 Neutrophils % 87.9 H Neutrophils % (Manual) 87.0 H Band Neutrophils % 3.0 Lymphocytes % 2.4 L D Lymphocytes % (Manual) 2.0 L Monocytes % 9.5 Monocytes % (Manual) 8 Eosinophils % 0.0 D Basophils % 0.2 Nucleated RBC % 0 Differential Comment Man diff performed Platelet Estimate Adequate Platelet Comment Poikilocytosis 1+ Anisocytosis 1+ Macrocytosis 1+ Ovalocytes 1+ Anticoagulation Therapy Puncture Site Patient Temperature ABG pH ABG pCO2 at Pt Temp ABG pO2 at Pt Temp ABG HCO3 ABG O2 Sat (Measured) ABG O2 Content ABG Base Excess Michael Test Carboxyhemoglobin Methemoglobin O2 Delivery Device Oxygen Flow Rate Vent Mode Vent Rate Mechanical Rate PEEP Pressure Support Vent Sodium 137 Potassium 5.2 H Chloride 96 L Carbon Dioxide 35 H Anion Gap 6 L BUN 23.9 H Creatinine 1.0 Est GFR (CKD-EPI)AfAm 93.08 Est GFR (CKD-EPI)NonAf 80.31 Random Glucose 123 H Lactic Acid 4.0 H* Calcium 8.8 Magnesium 2.6 H Total Bilirubin 1.2 H AST 29 ALT 34 Alkaline Phosphatase 102 Creatine Kinase 196 Creatine Kinase Index 4.5 CK-MB (CK-2) 8.9 H Troponin I < 0.02 Total Protein 7.5 Albumin 3.9 06/04/19 06/04/19 20:30 21:35 WBC RBC Hgb Hct MCV MCH MCHC RDW Plt Count MPV Absolute Neuts (auto) Total Counted Neutrophils % Neutrophils % (Manual) Band Neutrophils % Lymphocytes % Lymphocytes % (Manual) Monocytes % Monocytes % (Manual) Eosinophils % Basophils % Nucleated RBC % Differential Comment Platelet Estimate Platelet Comment Poikilocytosis Anisocytosis Macrocytosis Ovalocytes Anticoagulation Therapy Cancelled No Result Required. Puncture Site Cancelled Right radial Patient Temperature Cancelled ABG pH Cancelled 7.09 L* ABG pCO2 at Pt Temp Cancelled > 100 H* ABG pO2 at Pt Temp Cancelled 323 H ABG HCO3 Cancelled No Result Required. ABG O2 Sat (Measured) Cancelled 99.3 H ABG O2 Content Cancelled 17.8 ABG Base Excess Cancelled No Result Required. Michael Test Cancelled Positive Carboxyhemoglobin Cancelled 0.7 Methemoglobin Cancelled < 1.0 O2 Delivery Device Cancelled No Result Required. Oxygen Flow Rate Cancelled 80% Vent Mode Cancelled A/c Vent Rate Cancelled 18 Mechanical Rate Cancelled No Result Required. PEEP Cancelled 5.0 Pressure Support Vent Cancelled 400 Sodium Potassium Chloride Carbon Dioxide Anion Gap BUN Creatinine Est GFR (CKD-EPI)AfAm Est GFR (CKD-EPI)NonAf Random Glucose Lactic Acid Calcium Magnesium Total Bilirubin AST ALT Alkaline Phosphatase Creatine Kinase Creatine Kinase Index CK-MB (CK-2) Troponin I Total Protein Albumin ABG consistent with hypercapnea hypoxic respiratory failure likely secondary to severe COPD exacerbation. Leukocytosis present, elevated lactic acid, and negative troponin. Aztreonam and vancomycin given in the emergency department. Patient was intubated (refer to procedure note) Patient was admitted to the ICU for COPD exacerbation requiring intubation and now in respiratory failure. EKG: NSR without ST elevations or depressions. bifasicular block noted. Dispo: Admit Discharge - Discharge Information Problems reviewed: Yes Clinical Impression/Diagnosis: Acute on chronic respiratory failure with hypoxia and hypercapnia Condition: Critical - Follow up/Referral - Patient Discharge Instructions - Post Discharge Activity
[2019-06-04] MEDS ORDERED: SODIUM CHLORIDE 1,000 ML IV STA (21:34)
[2019-06-04] MEDS ORDERED: fentaNYL CITRATE 250 MCG/5 ML VIAL IVPUSH ONE (21:52)
[2019-06-04] MEDS ORDERED: fentaNYL CITRATE 250 MCG/5 ML VIAL ONE (21:52)
[2019-06-04 21:54] LABS: ARTERIAL BLD GAS O2 SATURATION 99.3 % (95-98); CARBOXYHEMOGLOBIN 0.7 % (0-2)
[2019-06-04 21:59] LABS: ALLENS TEST POSITIVE
[2019-06-04] MEDS ORDERED: FENTANYL INJECTION 500 MCG in DEXTROSE 5%-WATER - 90 ML IVPB SCH ×2 (22:00→23:30)
[2019-06-04 22:03] LABS: ARTERIAL BLOOD GAS PCO2 > 100 mmHg (35-45); ARTERIAL BLOOD GAS PO2 323 mmHg (80-100); ARTERIAL BLOOD GAS pH 7.09 (7.35-7.45)
[2019-06-04] MEDS ORDERED: MIDAZOLAM 100 MG in SODIUM CHLORIDE 100 ML IVPB SCH (22:15)
[2019-06-04] MEDS ORDERED: MEROPENEM 1 GM in DEXTROSE 5%-WATER 100 ML IVPB ONE (22:17)
[2019-06-04] MEDS ORDERED: VANCOMYCIN 1 GM in D5W (PRE-DOCKED) 1,000 MG/250 ML IVPB ONE (22:18)
--- NOTE | 2019-06-04 22:33 | PDOC ---
Documentation entered by Flakita Jarvis SCRIBE, acting as scribe for Vahe Grimes MD. Vahe Grimes MD: This documentation has been prepared by the Simona villalpando Nirvannie, SCRIBE, under my direction and personally reviewed by me in its entirety. I confirm that the documentation accurately reflects all work, treatment, procedures, and medical decision making performed by me. Attending Attestation - Resident Resident Name: Alonzo Antoine - ED Attending Attestation I have performed the following: I have examined & evaluated the patient, The case was reviewed & discussed with the resident, I agree w/resident's findings & plan - HPI HPI: 06/04/19 22:13 CC: Shortness of breath and chest pain. HPI: 63 years old past medical history significant for CAD status post CABG COPD on home O2 awaiting lung transplant HIV, hypertension, hyperlipidemia, CHF, rheumatoid arthritis on methotrexate presents to the emergency department with weakness lethargy difficulty breathing History limited progressively worsening over the last few days. - Physicial Exam PE: 06/04/19 23:32 Vitals: Triage Vital signs reviewed General Appearance: Moderate respiratory distress Head: Atraumatic, Eyes: Pupils equal reactive round, extraocular movement intact Neck: Supple; no Nucal rigidity Chest Wall: Nontender Cardiac: Tachycardic Lungs: Coarse breath sounds at bases Abdomen: Soft mild diffuse tenderness no rebound no guarding Extremities: Full range of motion to all extremities, no cyanosis, clubbing, or edema Skin: Warm and dry, no rashes or lesions, no rash, no petechiae - Critical Care Time Total Critical Care Time: 45 Critical Care Statement: The care of this patient involved high complexity decision making to prevent further life threatening deterioration of the patient 's condition and/or to evaluate & treat vital organ system(s) failure or risk of failure. - Medical Decision Making 06/04/19 23:33 64 years old with multiple comorbidities end-stage CO2 awaiting lung transplant presents to the ED in respiratory distress afebrile Given lethargy and altered mental status sepsis work-up initiated Patient immediately placed on BiPAP however patient's mental status continued to deteriorate concern for airway compromise and protection of airway decision made to intubate patient See intubation note Patient successfully intubated with no complications stat ABG ordered ABG demonstrates hypercapnic respiratory failure Patient covered with broad-spectrum antibiotics aztreonam given given penicillin allergy. Given altered mental status and mild diffuse abdominal discomfort when patient was more alert will obtain CTs of head chest abdomen pelvis to rule out other underlying pathology ICU has been consulted Patient will be admitted to the ICU for further management disease
--- NOTE | 2019-06-04 23:01 | CONSULT ---
Consultation: REQUESTING PROVIDER: CONSULT REQUEST: We have been asked to medically evaluate this patient for (specify). HISTORY OF PRESENT ILLNESS: This is a 64 year old male with past medical history significant for HTN, HLD, DM, COPD (on home O2 and awaiting lung transplant), CAD (s/p CABG), CHF, RA (on methotrexate), CVA and prostate CA. Patient was unconscious and therefore unable to provide a history. As per ER team, he presented to the ER from home with complaints of gradually worsening SOB and chest pain over the past 24 hours. Upon presentation, he was lethargic and speaking in 1 word sentences. He denied any fevers, chills, nausea, vomiting, dysuria, or abdominal pain. He is allergic to Penicillins. REVIEW OF SYSTEMS: Unable to assess, patient sedated. PHYSICAL EXAMINATION Vital Signs - 24 hr 06/04/19 06/04/19 06/04/19 19:45 20:12 20:42 Temperature 98.7 F Pulse Rate 103 H Pulse Rate [ 108 H Left Radial] Respiratory 27 H 24 H Rate Blood Pressure 147/56 L Blood Pressure 123/60 [Left Arm] O2 Sat by Pulse 100 99 99 Oximetry (%) 06/04/19 21:32 Temperature Pulse Rate Pulse Rate [ Left Radial] Respiratory 18 Rate Blood Pressure Blood Pressure [Left Arm] O2 Sat by Pulse Oximetry (%) GENERAL: Intubated and sedated EYES: OMAR LUNGS: Decreased breath sounds B/L with audible rhonchi HEART: RRR, S1, S2, no wheezes or murmurs ABDOMEN: Soft, tender LOWER EXTREMITIES: Warm, well-perfused. No calf tenderness. No peripheral edema. NEUROLOGICAL: Intubated and sedated SKIN: Dry Laboratory Results - last 24 hr 06/04/19 06/04/19 06/04/19 20:20 20:30 20:30 WBC 22.7 H RBC 4.74 Hgb 14.0 Hct 44.2 D MCV 93.3 MCH 29.6 MCHC 31.7 L RDW 15.8 Plt Count 367 D MPV 7.5 Absolute Neuts (auto) 20.0 H Neutrophils % 87.9 H Lymphocytes % 2.4 L D Monocytes % 9.5 Eosinophils % 0.0 D Basophils % 0.2 Nucleated RBC % 0 Anticoagulation Therapy Puncture Site Patient Temperature ABG pH ABG pCO2 at Pt Temp ABG pO2 at Pt Temp ABG HCO3 ABG O2 Sat (Measured) ABG O2 Content ABG Base Excess Michael Test Carboxyhemoglobin Methemoglobin O2 Delivery Device Oxygen Flow Rate Vent Mode Vent Rate Mechanical Rate PEEP Pressure Support Vent Sodium 137 Potassium 5.2 H Chloride 96 L Carbon Dioxide 35 H Anion Gap 6 L BUN 23.9 H Creatinine 1.0 Est GFR (CKD-EPI)AfAm 93.08 Est GFR (CKD-EPI)NonAf 80.31 Random Glucose 123 H Lactic Acid 4.0 H* Calcium 8.8 Total Bilirubin 1.2 H AST 29 ALT 34 Alkaline Phosphatase 102 Total Protein 7.5 Albumin 3.9 06/04/19 06/04/19 20:30 21:35 WBC RBC Hgb Hct MCV MCH MCHC RDW Plt Count MPV Absolute Neuts (auto) Neutrophils % Lymphocytes % Monocytes % Eosinophils % Basophils % Nucleated RBC % Anticoagulation Therapy Cancelled No Result Required. Puncture Site Cancelled Right radial Patient Temperature Cancelled ABG pH Cancelled 7.09 L* ABG pCO2 at Pt Temp Cancelled > 100 H* ABG pO2 at Pt Temp Cancelled 323 H ABG HCO3 Cancelled No Result Required. ABG O2 Sat (Measured) Cancelled 99.3 H ABG O2 Content Cancelled 17.8 ABG Base Excess Cancelled No Result Required. Michael Test Cancelled Positive Carboxyhemoglobin Cancelled 0.7 Methemoglobin Cancelled < 1.0 O2 Delivery Device Cancelled No Result Required. Oxygen Flow Rate Cancelled 80% Vent Mode Cancelled A/c Vent Rate Cancelled 18 Mechanical Rate Cancelled No Result Required. PEEP Cancelled 5.0 Pressure Support Vent Cancelled 400 Sodium Potassium Chloride Carbon Dioxide Anion Gap BUN Creatinine Est GFR (CKD-EPI)AfAm Est GFR (CKD-EPI)NonAf Random Glucose Lactic Acid Calcium Total Bilirubin AST ALT Alkaline Phosphatase Total Protein Albumin Active Medications Generic Name Dose Route Start Last Admin Trade Name Freq PRN Reason Stop Dose Admin Midazolam HCl 100 mg/ Sodium 100 mls @ 2.8 mls/hr 06/04/19 22:15 Chloride IVPB TITR VIOLA Protocol 2.8 MG/HR ASSESSMENT/PLAN: 64M with PMH of [place], HLD, DM, COPD, CAD, CHF, RA, CVA and prostate CA. Presented to the ER from home on 06/04 with complaints of gradually worsening SOB and chest pain over the past 24 hours. He was lethargic on presentation and subsequently intubated. 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 - Head CT ordered #Respiratory - Acute on chronic respiratory failure with hypoxia and hypercapnia - ABG: pH 7.09, pCO2 >100, pO2 323 - CT Chest pending - CXR: Patchy infiltrates in Rt lower lobe, awaiting official reading - Duonebs, Solu-Medrol, Mag, #CVS - Hx of HTN: Will confirm and resume home meds when appropriate - POC US in ER: decreased EF with LV lateral wall motion abnormality, no b lines , IVC 100% collapsible, no pericardial effusion, no pleural effusion #ID - WBC 22.7 with neutrophilia - LA 4.0 - Blood, urine cx pending - Aztreonam, Imipenem, Vanco given #GI - CT AP pending #Renal - BUN 23.9, Cr 1.0 #FEN - N/S - K+ 5.2, #Dispo - Admit to ICU - We will continue to follow the patient. Thank you for this consultative opportunity. Visit type - Emergency Visit Emergency Visit: Yes ED Registration Date: 06/04/19 Care time: The patient presented to the Emergency Department on the above date and was hospitalized for further evaluation of their emergent condition. - New Patient This patient is new to me today: Yes Date on this admission: 06/07/19 - Critical Care Critical Care patient: Yes Total Critical Care Time (in minutes): 39 Critical Care Statement: The care of this patient involved high complexity decision making to prevent further life threatening deterioration of the patient 's condition and/or to evaluate & treat vital organ system(s) failure or risk of failure. ATTENDING PHYSICIAN STATEMENT I saw and evaluated the patient. I reviewed the resident's note and discussed the case with the resident. I agree with the resident's findings and plan as documented. SUBJECTIVE: OBJECTIVE: ASSESSMENT AND PLAN:
[2019-06-04] MEDS ORDERED: PROPOFOL 200 MG/20 ML VIAL IVPUSH ONE ×2 (23:07→23:08)
[2019-06-04] MEDS: PROPOFOL 1,000,000 MCG/100 ML VIAL IVPB SCH (23:09)
[2019-06-04] MEDS ORDERED: AZTREONAM 1 GM VIAL (RESTRICTED TO ID) ONE (23:14)
[2019-06-04] MEDS ORDERED: VANCOMYCIN IVPB ONE (23:14)
[2019-06-04 23:25] LABS: ANISOCYTOSIS 1+; MACROCYTOSIS 1+; OVALOCYTE 1+; PLATELET ESTIMATE ADEQUATE
[2019-06-05 00:14] LABS: ARTERIAL BLD GAS O2 SATURATION 99.5 % (95-98); ARTERIAL BLOOD GAS BASE EXCESS 0.2 meq/l (-2-2); ARTERIAL BLOOD GAS PO2 197 mmHg (80-100)
[2019-06-05 00:24] LABS: ALLENS TEST POSITIVE
[2019-06-05 00:26] LABS: ARTERIAL BLOOD GAS PCO2 80.2 mmHg (35-45)
[2019-06-05] MEDS ORDERED: PNEUMOC 13-VAL CONJ-DIP CRM/PF 0.5 ML DISP.SYRIN IM ONE ×2 (01:08→06:00)
[2019-06-05 03:03] LABS: MAGNESIUM 2.6 mg/dL (1.8-2.4)
[2019-06-05 05:57] LABS: ALLENS TEST POSITIVE
[2019-06-05 06:02] LABS: ARTERIAL BLD GAS O2 SATURATION 99.5 % (95-98); ARTERIAL BLOOD GAS BASE EXCESS 5.1 meq/l (-2-2); ARTERIAL BLOOD GAS PCO2 62.6 mmHg (35-45); ARTERIAL BLOOD GAS PO2 180 mmHg (80-100); ARTERIAL BLOOD GAS pH 7.33 (7.35-7.45)
[2019-06-05] MEDS ORDERED: SODIUM CHLORIDE 1,000 ML IV SCH ×4 (06:15→09:00)
[2019-06-05 07:05] LABS: HEMATOCRIT 34.9 % (35.4-49); HEMOGLOBIN 11.3 GM/dL (11.7-16.9); LYMPH % 1.5 % (8-40); MCH 29.8 pg (25.7-33.7); MCHC 32.5 g/dl (32.0-35.9); MEAN CELL VOLUME 91.8 fl (80-96); MEAN PLT VOLUME 7.5 fl (7.5-11.1); MONO % 2.6 % (3.8-10.2); NEUT % 95.9 % (42.8-82.8); PLATELET COUNT 282 K/MM3 (134-434); RDW 15.9 % (11.9-15.9); WHITE BLOOD COUNT 18.8 K/mm3 (4.0-10.0)
[2019-06-05 07:43] LABS: ALBUMIN 2.8 g/dl (3.4-5.0); BILIRUBIN,TOTAL 0.8 mg/dL (0.2-1); BLOOD UREA NITROGEN 16.7 mg/dL (7-18); CALCIUM 8.3 mg/dL (8.5-10.1); CREATININE 0.7 mg/dL (0.55-1.3); MAGNESIUM 2.9 mg/dL (1.8-2.4); PHOSPHOROUS 2.1 mg/dL (2.5-4.9); TOT PROT 5.9 g/dl (6.4-8.2)
[2019-06-05] MEDS: ALBUTEROL SO4 2.5/IPRATROPIUM 0.5 INH SOL 3 ML VIAL.NEB. NEB SCH ×4 (08:30→20:01)
[2019-06-05] MEDS: ALBUTEROL SO4 0.083% IH SOL 2.5 MG/3 ML VIAL.NEB. NEB SCH ×2 (08:30→12:00)
[2019-06-05] MEDS ORDERED: methylPREDNISolone NA SUCC 40 MG/1 ML VIAL IVPUSH SCH (10:00)
[2019-06-05 10:26] LABS: ANISOCYTOSIS 1+; MACROCYTOSIS 0; PLATELET ESTIMATE NORMAL
--- NOTE | 2019-06-05 11:15 | HP ---
DATE OF ADMISSION: 06/04/2019 HISTORY: This is a 64-year-old male known to me for many years diagnosed to have COPD, coronary artery disease, status post bypass surgery. Came to the emergency room yesterday with short of breath for the last 2-3 days. He was not getting better. He was feeling better. In the emergency room, he was hypoxic and was retaining CO2. Had to be intubated and placed on the respirator. Now he is in the ICU. He is awake. He wants tube to be taken out. PRESENT MEDICATIONS: Xanax 0.5 b.i.d., Viagra for the COPD, Symbicort inhalation, Plavix 75 mg once a day, simvastatin 40 mg once a day, and ramipril 5 mg once a day. PHYSICAL EXAMINATION: Vital Signs: His BP is 100/60, respirations 18, temperature 98, pulse 96. HEENT: Unremarkable. Has ET tube in place. Sedated. Lungs: Breath sounds reduced both sides. Heart: S1, S2 normal. No S3, S4. Abdomen: Soft. Extremities: Edema present. Neurologic: Sedated now. LABORATORY REPORTS: WBC at the time of admission was 22.7, this morning 18.8, hemoglobin 13.3, platelets 282. Chemistry; sodium 139, potassium 5, chloride 101, CO2 is 32, BUN 16, creatinine 0.6. Blood sugar 114, lactic acid came down to 1.1. Chest x-ray: No infiltrate. Expanded lung. Minimal congestion present. PLAN: Continue respirator. Continue his present medications. Will discuss with ICU attending. knows the patient well. We will follow. FINAL DIAGNOSIS: 1. Respiratory failure on respirator. 2. Chronic obstructive pulmonary disease. 3. Arteriosclerotic heart disease. Pro [id number]
--- NOTE | 2019-06-05 11:51 | PN ---
Physical Exam: SUBJECTIVE: Patient seen and examined. Taken off sedation around 0830 this morning after which patient slowly became arousable and started following commands. Extubated ~[address] on BiPAP with O2 saturation in the mid 90s. OBJECTIVE: Vital Signs Period Temp Pulse Resp BP Sys/Ellison Pulse Ox Last 24 Hr 97.8 F-98.7 F 96-108 15-27 90-147/56-86 89-100 GENERAL: The patient is awake, alert, and fully oriented HEAD: Normal with no signs of trauma. EYES: EOMI, no scleral icterus ENT: dry mucous membranes NECK: Trachea midline, supple LUNGS: Crackles bilaterally, worse at bases. no accessory muscle use HEART: RRR, no murmur ABDOMEN: Soft, nontender, nondistended, normoactive bowel sounds, no guarding EXTREMITIES: 2+ pulses, warm, well-perfused, no edema. NEUROLOGICAL: Normal speech, gait not observed. Normal gag reflex SKIN: Warm, dry Laboratory Results - last 24 hr 06/04/19 06/04/19 06/04/19 20:20 20:30 20:30 WBC 22.7 H RBC 4.74 Hgb 14.0 Hct 44.2 D MCV 93.3 MCH 29.6 MCHC 31.7 L RDW 15.8 Plt Count 367 D MPV 7.5 Absolute Neuts (auto) 20.0 H Total Counted 100 Neutrophils % 87.9 H Neutrophils % (Manual) 87.0 H Band Neutrophils % 3.0 Lymphocytes % 2.4 L D Lymphocytes % (Manual) 2.0 L Monocytes % 9.5 Monocytes % (Manual) 8 Eosinophils % 0.0 D Eosinophils % (Manual) Basophils % 0.2 Basophils % (Manual) Myelocytes % (Man) Promyelocytes % (Man) Blast Cells % (Manual) Nucleated RBC % 0 Metamyelocytes Differential Comment Man diff performed Hypochromia Platelet Estimate Adequate Platelet Comment Polychromasia Poikilocytosis 1+ Anisocytosis 1+ Microcytosis Macrocytosis 1+ Ovalocytes 1+ Anticoagulation Therapy Puncture Site Patient Temperature ABG pH ABG pCO2 at Pt Temp ABG pO2 at Pt Temp ABG HCO3 ABG O2 Sat (Measured) ABG O2 Content ABG Base Excess Michael Test Carboxyhemoglobin Methemoglobin O2 Delivery Device Oxygen Flow Rate Vent Mode Vent Rate Mechanical Rate PEEP Pressure Support Vent Sodium 137 Potassium 5.2 H Chloride 96 L Carbon Dioxide 35 H Anion Gap 6 L BUN 23.9 H Creatinine 1.0 Est GFR (CKD-EPI)AfAm 93.08 Est GFR (CKD-EPI)NonAf 80.31 Random Glucose 123 H Lactic Acid 4.0 H* Calcium 8.8 Phosphorus Magnesium 2.6 H Total Bilirubin 1.2 H AST 29 ALT 34 Alkaline Phosphatase 102 Creatine Kinase 196 Creatine Kinase Index 4.5 CK-MB (CK-2) 8.9 H Troponin I < 0.02 Total Protein 7.5 Albumin 3.9 Influenza A (Rapid) Influenza B (Rapid) 06/04/19 06/04/19 06/04/19 20:30 21:35 23:50 WBC RBC Hgb Hct MCV MCH MCHC RDW Plt Count MPV Absolute Neuts (auto) Total Counted Neutrophils % Neutrophils % (Manual) Band Neutrophils % Lymphocytes % Lymphocytes % (Manual) Monocytes % Monocytes % (Manual) Eosinophils % Eosinophils % (Manual) Basophils % Basophils % (Manual) Myelocytes % (Man) Promyelocytes % (Man) Blast Cells % (Manual) Nucleated RBC % Metamyelocytes Differential Comment Hypochromia Platelet Estimate Platelet Comment Polychromasia Poikilocytosis Anisocytosis Microcytosis Macrocytosis Ovalocytes Anticoagulation Therapy Cancelled No Result Required. No Result Required. Puncture Site Cancelled Right radial Right radial Patient Temperature Cancelled ABG pH Cancelled 7.09 L* 7.20 L ABG pCO2 at Pt Temp Cancelled > 100 H* 80.2 H* ABG pO2 at Pt Temp Cancelled 323 H 197 H ABG HCO3 Cancelled No Result Required. 29.9 H ABG O2 Sat (Measured) Cancelled 99.3 H 99.5 H ABG O2 Content Cancelled 17.8 16.6 ABG Base Excess Cancelled No Result Required. 0.2 Michael Test Cancelled Positive Positive Carboxyhemoglobin Cancelled 0.7 Methemoglobin Cancelled < 1.0 O2 Delivery Device Cancelled No Result Required. Vent Oxygen Flow Rate Cancelled 80% 60% Vent Mode Cancelled A/c A/c Vent Rate Cancelled 18 18 Mechanical Rate Cancelled No Result Required. Yes PEEP Cancelled 5.0 5.0 Pressure Support Vent Cancelled 400 400 Sodium Potassium Chloride Carbon Dioxide Anion Gap BUN Creatinine Est GFR (CKD-EPI)AfAm Est GFR (CKD-EPI)NonAf Random Glucose Lactic Acid Calcium Phosphorus Magnesium Total Bilirubin AST ALT Alkaline Phosphatase Creatine Kinase Creatine Kinase Index CK-MB (CK-2) Troponin I Total Protein Albumin Influenza A (Rapid) Influenza B (Rapid) 06/05/19 06/05/19 06/05/19 00:10 00:50 05:50 WBC RBC Hgb Hct MCV MCH MCHC RDW Plt Count MPV Absolute Neuts (auto) Total Counted Neutrophils % Neutrophils % (Manual) Band Neutrophils % Lymphocytes % Lymphocytes % (Manual) Monocytes % Monocytes % (Manual) Eosinophils % Eosinophils % (Manual) Basophils % Basophils % (Manual) Myelocytes % (Man) Promyelocytes % (Man) Blast Cells % (Manual) Nucleated RBC % Metamyelocytes Differential Comment Hypochromia Platelet Estimate Platelet Comment Polychromasia Poikilocytosis Anisocytosis Microcytosis Macrocytosis Ovalocytes Anticoagulation Therapy No Result Required. Puncture Site Right radial Patient Temperature ABG pH 7.33 L ABG pCO2 at Pt Temp 62.6 H ABG pO2 at Pt Temp 180 H ABG HCO3 32.1 H ABG O2 Sat (Measured) 99.5 H ABG O2 Content 16.3 ABG Base Excess 5.1 H Michael Test Positive Carboxyhemoglobin Methemoglobin O2 Delivery Device Vent Oxygen Flow Rate 60% Vent Mode A/c Vent Rate 18 Mechanical Rate Yes PEEP 5.0 Pressure Support Vent 400 Sodium Potassium Chloride Carbon Dioxide Anion Gap BUN Creatinine Est GFR (CKD-EPI)AfAm Est GFR (CKD-EPI)NonAf Random Glucose Lactic Acid 1.7 Calcium Phosphorus Magnesium Total Bilirubin AST ALT Alkaline Phosphatase Creatine Kinase Creatine Kinase Index CK-MB (CK-2) Troponin I Total Protein Albumin Influenza A (Rapid) Negative Influenza B (Rapid) Negative 06/05/19 06/05/19 06/05/19 06:00 06:20 06:20 WBC 18.8 H RBC 3.80 L Hgb 11.3 L Hct 34.9 L D MCV 91.8 MCH 29.8 MCHC 32.5 RDW 15.9 Plt Count 282 D MPV 7.5 Absolute Neuts (auto) 18.0 H Total Counted Neutrophils % 95.9 H Neutrophils % (Manual) 95.0 H Band Neutrophils % 0.0 Lymphocytes % 1.5 L D Lymphocytes % (Manual) 2.0 L Monocytes % 2.6 L Monocytes % (Manual) 2 L Eosinophils % 0.0 Eosinophils % (Manual) 0.0 Basophils % 0.0 Basophils % (Manual) 0.0 Myelocytes % (Man) 0 Promyelocytes % (Man) 0 Blast Cells % (Manual) 0 Nucleated RBC % 0 Metamyelocytes 1 Differential Comment Hypochromia 0 Platelet Estimate Normal Platelet Comment Polychromasia 0 Poikilocytosis 0 Anisocytosis 1+ Microcytosis 0 Macrocytosis 0 Ovalocytes Anticoagulation Therapy Puncture Site Patient Temperature ABG pH ABG pCO2 at Pt Temp ABG pO2 at Pt Temp ABG HCO3 ABG O2 Sat (Measured) ABG O2 Content ABG Base Excess Michael Test Carboxyhemoglobin Methemoglobin O2 Delivery Device Oxygen Flow Rate Vent Mode Vent Rate Mechanical Rate PEEP Pressure Support Vent Sodium 139 Potassium 5.0 Chloride 101 Carbon Dioxide 32 Anion Gap 6 L BUN 16.7 Creatinine 0.7 Est GFR (CKD-EPI)AfAm 117.22 Est GFR (CKD-EPI)NonAf 101.14 Random Glucose 114 H Lactic Acid 1.1 Calcium 8.3 L Phosphorus 2.1 L Magnesium 2.9 H Total Bilirubin 0.8 AST 25 ALT 25 Alkaline Phosphatase 76 Creatine Kinase Creatine Kinase Index CK-MB (CK-2) Troponin I Total Protein 5.9 L Albumin 2.8 L Influenza A (Rapid) Influenza B (Rapid) Active Medications Generic Name Dose Route Start Last Admin Trade Name Freq PRN Reason Stop Dose Admin Albuterol Sulfate 1 amp 06/05/19 08:00 06/05/19 08:30 Ventolin 0.083% Nebulizer Soln - NEB Not Given RQ4H VIOLA Albuterol/Ipratropium 1 amp 06/05/19 08:00 06/05/19 11:07 Duoneb - NEB 1 amp RQID VIOLA Administration Chlorhexidine Gluconate 1 applic 06/05/19 22:00 Hibiclens For Decolonization - TP HS VIOLA Clopidogrel Bisulfate 75 mg 06/05/19 11:45 Plavix - PO DAILY VIOLA Heparin Sodium (Porcine) 5,000 unit 06/05/19 14:00 Heparin - SQ TID VIOLA Propofol 1,000,000 mcg in 100 mls @ 4.218 mls/hr 06/04/19 23:15 06/04/19 23: 11 Diprivan - IVPB 6 mcg/kg/min TITR VIOLA 2.531 mls/hr Titration Protocol 10 MCG/KG/MIN Fentanyl 500 mcg/ Dextrose 100 mls @ 5 mls/hr 06/04/19 23:30 06/05/19 01:00 IVPB 50 mcg/hr TITR VIOLA 10 mls/hr Titration 25 MCG/HR Sodium Chloride 1,000 mls @ 75 mls/hr 06/05/19 09:00 06/05/19 09:16 Normal Saline - IV 75 mls/hr ASDIR VIOLA Administration Azithromycin 500 mg in 250 mls @ 250 mls/hr 06/05/19 11:45 Zithromax 500mg Ivpb (Pre-Docked) IVPB DAILY VIOLA Methylprednisolone Sodium Succinate 40 mg 06/05/19 18:00 Solu-Medrol - IVPUSH Q8H-IV VIOLA Mupirocin 1 applic 06/05/19 10:00 Bactroban Ointment (For Decolonization) - NS 06/10/19 09:59 BID VIOLA ASSESSMENT/PLAN: 64 y/o/m with PMH of [place], HLD, DM, COPD, CAD, CHF, RA, CVA and prostate CA. Presented to the ER from home on 06/04 with complaints of gradually worsening SOB and chest pain over the past 24 hours. He was lethargic on presentation and subsequently intubated. 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 Adjust BiPAP settings as necessary - CT Chest pending - CXR without significant change from prior, no obvious acute process seen, waiting official read - Emphysematous changes seen on chest CT - Duonebs - Solu-medrol 40mg IV Q8hr #CVS - Hx of HTN: Will confirm and resume home meds when appropriate - POC US in ER: decreased EF with LV lateral wall motion abnormality, no b lines , IVC 100% collapsible, no pericardial effusion, no pleural effusion #ID - WBC 18.8, afebrile, monitor - Lactic acid normalized - Blood, urine cx without growth to date - Aztreonam, Imipenem, Vanco given in ED - Started on Azithromycin 500mg daily #GI - CTAP - Mild hepatic steatosis with subtle hepatic surface nodularity is concerning for early cirrhosis. #Renal - BUN/Cr - 16.7/0.7 #Prophylaxis - Plavix #FEN - N/S @ 42mls/hr - monitor and replete lytes as needed #Dispo - Continue ICU monitoring Visit type - Emergency Visit Emergency Visit: Yes ED Registration Date: 06/04/19 Care time: The patient presented to the Emergency Department on the above date and was hospitalized for further evaluation of their emergent condition. - New Patient This patient is new to me today: Yes Date on this admission: 06/05/19 - Critical Care Critical Care patient: Yes Total Critical Care Time (in minutes): 36 Critical Care Statement: The care of this patient involved high complexity decision making to prevent further life threatening deterioration of the patient 's condition and/or to evaluate & treat vital organ system(s) failure or risk of failure. ATTENDING PHYSICIAN STATEMENT I saw and evaluated the patient. I reviewed the resident's note and discussed the case with the resident. I agree with the resident's findings and plan as documented. SUBJECTIVE: OBJECTIVE: ASSESSMENT AND PLAN:
[2019-06-05] MEDS: AZITHROMYCIN IVPB 500 MG/250 ML BAG IVPB SCH (11:59)
[2019-06-05] MEDS: CLOPIDOGREL BISULFATE 75 MG TABLET (FP) PO SCH (11:59)
--- NOTE | 2019-06-05 12:03 | PN ---
Teaching Attending Note Name of Resident: Kay Montejo ATTENDING PHYSICIAN STATEMENT I saw and evaluated the patient. I reviewed the resident's note and discussed the case with the resident. I agree with the resident's findings and plan as documented. SUBJECTIVE: Pt seen and examined in the ICU. Intubated, awake off sedation. Tolerated CPAP/ PS and subsequently extubated to BiPAP during rounds. OBJECTIVE: Vital Signs Period Temp Pulse Resp BP Sys/Ellison Pulse Ox Last 24 Hr 97.8 F-98.7 F 96-108 15-27 90-147/56-86 89-100 Intake & Output 06/02/19 06/03/19 06/04/19 06/05/19 23:59 23:59 23:59 23:59 Intake Total 1151 Output Total 350 Balance 801 Weight 58.559 kg 58.542 kg Gen: extubated Heart: RRR Lung: decreased breath sounds at the bases Abd: soft, nontender Ext: no edema CBC, BMP 06/05/19 06:20 06/05/19 06:20 Active Medications Albuterol Sulfate (Ventolin 0.083% Nebulizer Soln -) 1 amp NEB RQ4H VIOLA Last Admin: 06/05/19 12:00 Dose: Not Given Albuterol/Ipratropium (Duoneb -) 1 amp NEB RQID VIOLA Last Admin: 06/05/19 11:07 Dose: 1 amp Chlorhexidine Gluconate (Hibiclens For Decolonization -) 1 applic TP HS VIOLA Clopidogrel Bisulfate (Plavix -) 75 mg PO DAILY VIOLA Last Admin: 06/05/19 11:59 Dose: 75 mg Heparin Sodium (Porcine) (Heparin -) 5,000 unit SQ TID VIOLA Propofol (Diprivan -) 1,000,000 mcg in 100 mls @ 4.218 mls/hr IVPB TITR VIOLA; Protocol Last Titration: 06/04/19 23:11 Dose: 6 mcg/kg/min, 2.531 mls/hr Fentanyl 500 mcg/ Dextrose 100 mls @ 5 mls/hr IVPB TITR VIOLA Last Titration: 06/05/19 01:00 Dose: 50 mcg/hr, 10 mls/hr Sodium Chloride (Normal Saline -) 1,000 mls @ 75 mls/hr IV ASDIR VIOLA Last Admin: 06/05/19 09:16 Dose: 75 mls/hr Azithromycin (Zithromax 500mg Ivpb (Pre-Docked)) 500 mg in 250 mls @ 250 mls/ hr IVPB DAILY [facility] Last Admin: 06/05/19 11:59 Dose: 250 mls/hr Methylprednisolone Sodium Succinate (Solu-Medrol -) 40 mg IVPUSH Q8H-IV VIOLA Mupirocin (Bactroban Ointment (For Decolonization) -) 1 applic NS BID VIOLA Stop: 06/10/19 09:59 ASSESSMENT AND PLAN: Acute on Chronic Hypoxic and Hypercapneic Respiratory Failure Acute COPD Exacerbation Emphysema CAD HTN DM Hyperlipidemia Rheumatoid Arthritis h/o CVA Prostate Ca Anemia - pt extubated - continue BiPAP - continue medrol - inhaled bronchodilators standing and PRN - O2 to keep Spo2 88-92% - azithromycin - IVF - continue ICU monitoring critical care time spent in reviewing chart, evaluating patient and formulating plan 35 min
--- NOTE | 2019-06-05 13:36 | EKG ---
Test Reason : Blood Pressure : / mmHG Vent. Rate : 106 BPM Atrial Rate : 106 BPM P-R Int : 116 ms QRS Dur : 130 ms QT Int : 366 ms P-R-T Axes : 085 142 074 degrees QTc Int : 486 ms POOR DATA QUALITY, INTERPRETATION MAY BE ADVERSELY AFFECTED BASELINE ARTIFACT SINUS TACHYCARDIA WITH OCCASIONAL PREMATURE VENTRICULAR COMPLEXES RIGHT BUNDLE BRANCH BLOCK LEFT POSTERIOR FASCICULAR BLOCK BIFASCICULAR BLOCK ABNORMAL ECG WHEN COMPARED WITH ECG OF 25-MAY-2018 13:34, PREMATURE VENTRICULAR COMPLEXES ARE NOW PRESENT Confirmed by LINDSEY DE ANDA MD ([id number]) on 06/05/2019 1:35:53 PM Referred By: Confirmed By:LINDSEY DE ANDA MD
[2019-06-05] MEDS ORDERED: HEPARIN NA (PORCINE) 5,000 UNITS/ML 1ML VIAL SQ SCH (14:00)
[2019-06-05] MEDS: SODIUM CHLORIDE 1,000 ML IV SCH (14:10)
[2019-06-05 14:15] LABS: ARTERIAL BLD GAS O2 SATURATION 93.3 % (95-98); ARTERIAL BLOOD GAS BASE EXCESS 4.7 meq/l (-2-2); ARTERIAL BLOOD GAS PCO2 62.3 mmHg (35-45); ARTERIAL BLOOD GAS PO2 66.6 mmHg (80-100); ARTERIAL BLOOD GAS pH 7.33 (7.35-7.45)
[2019-06-05 14:24] LABS: ALLENS TEST POSITIVE
[2019-06-05] MEDS ORDERED: ALBUTEROL SO4 0.083% IH SOL 2.5 MG/3 ML VIAL.NEB. NEB PRN (15:40)
[2019-06-05] MEDS ORDERED: PT OWN MED DRAWER 7, Y5N ONE (17:00)
[2019-06-05] MEDS: methylPREDNISolone NA SUCC 40 MG/1 ML VIAL IVPUSH SCH (17:10)
[2019-06-05 21:01] LABS: EPI CELLS 2.7 /HPF (0-5/HPF); HYALINE CASTS 11 /lpf (0-8); PH,URINE 5.5 (5.0-8.0); URINE APPEARANCE CLOUDY; URINE BACTERIA 1.2 /hpf (NEGATIVE); URINE BILIRUBIN NEGATIVE (NEGATIVE); URINE COLOR YELLOW; URINE GLUCOSE (UA) NEGATIVE (NEGATIVE); URINE KETONE 1+ (NEGATIVE); URINE LEUK ESTERASE 1+ (NEGATIVE); URINE NITRITE NEGATIVE (NEGATIVE); URINE PROTEIN 1+ (NEGATIVE); URINE RBC 1107 /hpf (0-4); URINE WBC 32 /hpf (0-5)
[2019-06-05] MEDS: CHLORHEXIDINE GLUCONATE 4% CLEANSER FOR DECOLONIZATION TP SCH (21:18)
[2019-06-05] MEDS: MUPIROCIN 2% TOPICAL OINTMENT FOR DECOLONIZATION NS SCH (21:20)
[2019-06-06] MEDS: PROPOFOL 1,000,000 MCG/100 ML VIAL IVPB SCH (01:21)
[2019-06-06] MEDS: methylPREDNISolone NA SUCC 40 MG/1 ML VIAL IVPUSH SCH ×3 (01:22→17:24)
[2019-06-06] MEDS ORDERED: LABETALOL HCL 5 MG/1 ML (100MG/20 ML VIAL) IVPUSH ONE ×2 (04:12→04:57)
[2019-06-06 06:30] LABS: HEMATOCRIT 36.2 % (35.4-49); HEMOGLOBIN 11.9 GM/dL (11.7-16.9); MCHC 32.9 g/dl (32.0-35.9); MEAN CELL VOLUME 91.1 fl (80-96); MEAN PLT VOLUME 7.5 fl (7.5-11.1); PLATELET COUNT 292 K/MM3 (134-434); RBC 3.97 M/mm3 (4.00-5.60); RDW 16.2 % (11.9-15.9); WHITE BLOOD COUNT 18.2 K/mm3 (4.0-10.0)
[2019-06-06 06:46] LABS: ALBUMIN 3.1 g/dl (3.4-5.0); BILIRUBIN,TOTAL 0.6 mg/dL (0.2-1); CREATININE 0.8 mg/dL (0.55-1.3); MAGNESIUM 2.6 mg/dL (1.8-2.4); PHOSPHOROUS 3.2 mg/dL (2.5-4.9); TOT PROT 6.5 g/dl (6.4-8.2)
[2019-06-06 07:03] LABS: ARTERIAL BLD GAS O2 SATURATION 93.8 % (95-98); ARTERIAL BLOOD GAS BASE EXCESS 7.8 meq/l (-2-2); ARTERIAL BLOOD GAS PCO2 60.1 mmHg (35-45); ARTERIAL BLOOD GAS PO2 68.9 mmHg (80-100); ARTERIAL BLOOD GAS pH 7.38 (7.35-7.45)
[2019-06-06 07:09] LABS: ALLENS TEST POSITIVE
[2019-06-06] MEDS: ALBUTEROL SO4 2.5/IPRATROPIUM 0.5 INH SOL 3 ML VIAL.NEB. NEB SCH ×4 (07:50→20:22)
--- NOTE | 2019-06-06 09:22 | PN ---
Physical Exam: SUBJECTIVE: Patient seen and examined. Complaints that he feels anxious, still does not feel like he is breathing comfortably. No acute events overnight. OBJECTIVE: Vital Signs Period Temp Pulse Resp BP Sys/Ellison Pulse Ox Last 24 Hr 97.5 F-98.5 F 94-126 16-22 123-153/63-85 91-100 GENERAL: The patient is awake, alert, and fully oriented, in mild respiratory distress. HEAD: Normal with no signs of trauma. EYES: EOMI ENT: on BiPAP, dry mucous membranes NECK: trachea midline, supple LUNGS: crackles bilaterally, no accessory muscle use, no wheezing HEART: RRR, no murmur ABDOMEN: Soft, nontender, nondistended, normoactive bowel sounds, no guarding, no rebound EXTREMITIES: 2+ pulses, warm NEUROLOGICAL: Normal speech, gait not observed. PSYCH: anxious mood SKIN: Warm, dry Laboratory Results - last 24 hr 06/05/19 06/05/19 06/05/19 06:20 13:55 20:30 WBC RBC Hgb Hct MCV MCH MCHC RDW Plt Count MPV Neutrophils % (Manual) 95.0 H Band Neutrophils % 0.0 Lymphocytes % (Manual) 2.0 L Monocytes % (Manual) 2 L Eosinophils % (Manual) 0.0 Basophils % (Manual) 0.0 Myelocytes % (Man) 0 Promyelocytes % (Man) 0 Blast Cells % (Manual) 0 Metamyelocytes 1 Hypochromia 0 Platelet Estimate Normal Polychromasia 0 Poikilocytosis 0 Anisocytosis 1+ Microcytosis 0 Macrocytosis 0 Anticoagulation Therapy No Result Required. Puncture Site Right radial ABG pH 7.33 L ABG pCO2 at Pt Temp 62.3 H ABG pO2 at Pt Temp 66.6 L ABG HCO3 31.8 H ABG O2 Sat (Measured) 93.3 L ABG O2 Content 15.6 ABG Base Excess 4.7 H Michael Test Positive O2 Delivery Device No Result Required. Oxygen Flow Rate Yes Vent Mode No Result Required. Vent Rate 16 Mechanical Rate No Result Required. Pressure Support Vent No Result Required. Sodium Potassium Chloride Carbon Dioxide Anion Gap BUN Creatinine Est GFR (CKD-EPI)AfAm Est GFR (CKD-EPI)NonAf Random Glucose Calcium Phosphorus Magnesium Total Bilirubin AST ALT Alkaline Phosphatase Total Protein Albumin Urine Color Yellow Urine Appearance Cloudy Urine pH 5.5 Ur Specific [place] 1.021 Urine Protein 1+ H Urine Glucose (UA) Negative Urine Ketones 1+ H Urine Blood 3+ H Urine Nitrite Negative Urine Bilirubin Negative Urine Urobilinogen 1.0 Ur Leukocyte Esterase 1+ H Urine WBC (Auto) 32 Urine RBC (Auto) 1107 Urine Casts (Auto) 11 U Epithel Cells (Auto) 2.7 Urine Bacteria (Auto) 1.2 06/06/19 06/06/19 06/06/19 05:33 05:33 06:00 WBC 18.2 H RBC 3.97 L Hgb 11.9 Hct 36.2 MCV 91.1 MCH 30.0 MCHC 32.9 RDW 16.2 H Plt Count 292 MPV 7.5 Neutrophils % (Manual) Band Neutrophils % Lymphocytes % (Manual) Monocytes % (Manual) Eosinophils % (Manual) Basophils % (Manual) Myelocytes % (Man) Promyelocytes % (Man) Blast Cells % (Manual) Metamyelocytes Hypochromia Platelet Estimate Polychromasia Poikilocytosis Anisocytosis Microcytosis Macrocytosis Anticoagulation Therapy Puncture Site Left radial ABG pH 7.38 ABG pCO2 at Pt Temp 60.1 H ABG pO2 at Pt Temp 68.9 L ABG HCO3 34.4 H ABG O2 Sat (Measured) 93.8 L ABG O2 Content 15.5 ABG Base Excess 7.8 H Michael Test Positive O2 Delivery Device Bipap Oxygen Flow Rate Yes Vent Mode Vent Rate 16 Mechanical Rate Pressure Support Vent Sodium 139 Potassium 5.0 Chloride 98 Carbon Dioxide 36 H Anion Gap 5 L BUN 15.0 Creatinine 0.8 Est GFR (CKD-EPI)AfAm 110.96 Est GFR (CKD-EPI)NonAf 95.74 Random Glucose 130 H Calcium 9.0 Phosphorus 3.2 Magnesium 2.6 H Total Bilirubin 0.6 AST 25 ALT 28 Alkaline Phosphatase 80 Total Protein 6.5 Albumin 3.1 L Urine Color Urine Appearance Urine pH Ur Specific [place] Urine Protein Urine Glucose (UA) Urine Ketones Urine Blood Urine Nitrite Urine Bilirubin Urine Urobilinogen Ur Leukocyte Esterase Urine WBC (Auto) Urine RBC (Auto) Urine Casts (Auto) U Epithel Cells (Auto) Urine Bacteria (Auto) Active Medications Generic Name Dose Route Start Last Admin Trade Name Freq PRN Reason Stop Dose Admin Albuterol Sulfate 1 amp 06/05/19 15:40 06/06/19 04:20 Ventolin 0.083% Nebulizer Soln - NEB 1 amp RQ4H PRN Administration Dyspnea Albuterol/Ipratropium 1 amp 06/05/19 08:00 06/06/19 07:50 Duoneb - NEB 1 amp RQID VIOLA Administration Chlorhexidine Gluconate 1 applic 06/05/19 22:00 06/05/19 21:18 Hibiclens For Decolonization - TP 1 applic HS VIOLA Administration Clopidogrel Bisulfate 75 mg 06/05/19 11:45 06/05/19 11:59 Plavix - PO 75 mg DAILY VIOLA Administration Propofol 1,000,000 mcg in 100 mls @ 4.218 mls/hr 06/04/19 23:15 06/06/19 01: 21 Diprivan - IVPB Not Given TITR VIOLA Protocol 10 MCG/KG/MIN Azithromycin 500 mg in 250 mls @ 250 mls/hr 06/05/19 11:45 06/05/19 11:59 Zithromax 500mg Ivpb (Pre-Docked) IVPB 250 mls/hr DAILY VIOLA Administration Sodium Chloride 1,000 mls @ 42 mls/hr 06/05/19 13:51 06/05/19 14:10 Normal Saline - IV 42 mls/hr ASDIR VIOLA Administration Methylprednisolone Sodium Succinate 40 mg 06/05/19 18:00 06/06/19 01:22 Solu-Medrol - IVPUSH 40 mg Q8H-IV VIOLA Administration Mupirocin 1 applic 06/05/19 10:00 06/05/19 21:20 Bactroban Ointment (For Decolonization) - NS 06/10/19 09:59 Not Given BID VIOLA ASSESSMENT/PLAN: 64 y/o/m with PMH of [place], HLD, DM, COPD, CAD, CHF, RA, CVA and prostate CA. Presented to the ER from home on 06/04 with complaints of gradually worsening SOB and chest pain over the past 24 hours. He was lethargic on presentation and subsequently intubated. 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 Adjust BiPAP settings as necessary - Emphysematous changes seen on chest CT - Duonebs - Solu-medrol 40mg IV Q8hr #CVS - Hx of HTN: resume medications as appropriate - POC US in ER: decreased EF with LV lateral wall motion abnormality, no b lines , IVC 100% collapsible, no pericardial effusion, no pleural effusion - Can use Hydralazine for BP control, avoid Beta Blockers due to COPD exacerbation #ID - WBC 18.2, afebrile, monitor - Lactic acid normalized - Blood, urine cx without growth to date - Aztreonam, Imipenem, Vanco given in ED - Started on Azithromycin 500mg daily #GI - CTAP - Mild hepatic steatosis with subtle hepatic surface nodularity is concerning for early cirrhosis. #Renal - BUN/Cr - 15/0.8 #Prophylaxis - Plavix #FEN - N/S @ 42mls/hr - monitor and replete lytes as needed #Dispo - Continue ICU monitoring Visit type - Emergency Visit Emergency Visit: Yes ED Registration Date: 06/04/19 Care time: The patient presented to the Emergency Department on the above date and was hospitalized for further evaluation of their emergent condition. - New Patient This patient is new to me today: No - Critical Care Critical Care patient: Yes Total Critical Care Time (in minutes): 36 Critical Care Statement: The care of this patient involved high complexity decision making to prevent further life threatening deterioration of the patient 's condition and/or to evaluate & treat vital organ system(s) failure or risk of failure. ATTENDING PHYSICIAN STATEMENT I saw and evaluated the patient. I reviewed the resident's note and discussed the case with the resident. I agree with the resident's findings and plan as documented. SUBJECTIVE: OBJECTIVE: ASSESSMENT AND PLAN:
--- NOTE | 2019-06-06 09:55 | PN ---
Progress Note, Physician Chief Complaint: has problems in breathing History of Present Illness: S/P extubation on bipap - Current Medication List Current Medications: Active Medications Albuterol Sulfate (Ventolin 0.083% Nebulizer Soln -) 1 amp NEB RQ4H PRN PRN Reason: Dyspnea Last Admin: 06/06/19 04:20 Dose: 1 amp Albuterol/Ipratropium (Duoneb -) 1 amp NEB RQID [facility] Last Admin: 06/06/19 07:50 Dose: 1 amp Chlorhexidine Gluconate (Hibiclens For Decolonization -) 1 applic TP HS [facility] Last Admin: 06/05/19 21:18 Dose: 1 applic Clopidogrel Bisulfate (Plavix -) 75 mg PO DAILY [facility] Last Admin: 06/05/19 11:59 Dose: 75 mg Propofol (Diprivan -) 1,000,000 mcg in 100 mls @ 4.218 mls/hr IVPB TITR VIOLA; Protocol Last Admin: 06/06/19 01:21 Dose: Not Given Azithromycin (Zithromax 500mg Ivpb (Pre-Docked)) 500 mg in 250 mls @ 250 mls/ hr IVPB DAILY [facility] Last Admin: 06/05/19 11:59 Dose: 250 mls/hr Sodium Chloride (Normal Saline -) 1,000 mls @ 42 mls/hr IV ASDIR [facility] Last Admin: 06/05/19 14:10 Dose: 42 mls/hr Methylprednisolone Sodium Succinate (Solu-Medrol -) 40 mg IVPUSH Q8H-IV [facility]OLA Last Admin: 06/06/19 01:22 Dose: 40 mg Mupirocin (Bactroban Ointment (For Decolonization) -) 1 applic NS BID [facility] Stop: 06/10/19 09:59 Last Admin: 06/05/19 21:20 Dose: Not Given - Objective Vital Signs: Vital Signs Temperature 97.5 F L 06/06/19 06:00 Pulse Rate 107 H 06/06/19 08:00 Respiratory Rate 21 H 06/06/19 08:00 Blood Pressure 170/91 06/06/19 08:00 O2 Sat by Pulse Oximetry (%) 96 06/06/19 08:34 Constitutional: Yes: Moderate Distress Eyes: Yes: WNL HENT: Yes: WNL Neck: Yes: WNL Cardiovascular: Yes: Regular Rate and Rhythm, Tachycardia Respiratory: Yes: On BiPap Gastrointestinal: Yes: Normal Bowel Sounds ...Rectal Exam: Yes: Deferred Genitourinary: Yes: WNL Edema: LUE: 1+, RUE: 1+, LLE: 1+, RLE: 1+ Neurological: Yes: Alert Labs: CBC, BMP 06/06/19 05:33 06/06/19 05:33 Assessment/Plan Continue same trt
[2019-06-06] MEDS: CLOPIDOGREL BISULFATE 75 MG TABLET (FP) PO SCH (10:10)
[2019-06-06] MEDS: AZITHROMYCIN IVPB 500 MG/250 ML BAG IVPB SCH (10:53)
[2019-06-06] MEDS: MUPIROCIN 2% TOPICAL OINTMENT FOR DECOLONIZATION NS SCH ×2 (10:53→21:48)
--- NOTE | 2019-06-06 11:17 | PN ---
Teaching Attending Note Name of Resident: Kay Montejo ATTENDING PHYSICIAN STATEMENT I saw and evaluated the patient. I reviewed the resident's note and discussed the case with the resident. I agree with the resident's findings and plan as documented. SUBJECTIVE: Pt seen and examined in the ICU. Remains extubated on BiPAP. No fevers recorded. +cough and wheezing. OBJECTIVE: Vital Signs Period Temp Pulse Resp BP Sys/Ellison Pulse Ox Last 24 Hr 97.3 F-98.3 F 94-126 16-22 123-170/63-91 94-100 Intake & Output 06/03/19 06/04/19 06/05/19 06/06/19 23:59 23:59 23:59 23:59 Intake Total 2214 394 Output Total 2525 450 Balance -311 -56 Weight 58.559 kg 58.542 kg 60.963 kg Gen: tachypneic on BiPAP Heart: RRR Lung: scattered rhonchi Abd: soft, nontender Ext: + edema CBC, BMP 06/06/19 05:33 06/06/19 05:33 Active Medications Albuterol Sulfate (Ventolin 0.083% Nebulizer Soln -) 1 amp NEB RQ4H PRN PRN Reason: Dyspnea Last Admin: 06/06/19 04:20 Dose: 1 amp Albuterol/Ipratropium (Duoneb -) 1 amp NEB RQID [facility] Last Admin: 06/06/19 07:50 Dose: 1 amp Chlorhexidine Gluconate (Hibiclens For Decolonization -) 1 applic TP HS [facility] Last Admin: 06/05/19 21:18 Dose: 1 applic Clopidogrel Bisulfate (Plavix -) 75 mg PO DAILY [facility] Last Admin: 06/06/19 10:10 Dose: 75 mg Propofol (Diprivan -) 1,000,000 mcg in 100 mls @ 4.218 mls/hr IVPB TITR [facility]; Protocol Last Admin: 06/06/19 01:21 Dose: Not Given Azithromycin (Zithromax 500mg Ivpb (Pre-Docked)) 500 mg in 250 mls @ 250 mls/ hr IVPB DAILY [facility] Last Admin: 06/06/19 10:53 Dose: 250 mls/hr Sodium Chloride (Normal Saline -) 1,000 mls @ 42 mls/hr IV ASDIR [facility] Last Admin: 06/05/19 14:10 Dose: 42 mls/hr Methylprednisolone Sodium Succinate (Solu-Medrol -) 40 mg IVPUSH Q8H-IV [facility] Last Admin: 06/06/19 10:53 Dose: 40 mg Mupirocin (Bactroban Ointment (For Decolonization) -) 1 applic NS BID [facility] Stop: 06/10/19 09:59 Last Admin: 06/06/19 10:53 Dose: 1 applic ASSESSMENT AND PLAN: Acute on Chronic Hypoxic and Hypercapneic Respiratory Failure Acute COPD Exacerbation Emphysema CAD HTN DM Hyperlipidemia Rheumatoid Arthritis h/o CVA Prostate Ca Anemia - continue BiPAP - can attempt HFOT - continue medrol - inhaled bronchodilators standing and PRN - O2 to keep Spo2 88-92% - azithromycin - IVF - continue ICU monitoring critical care time spent in reviewing chart, evaluating patient and formulating plan 35 min
[2019-06-06] MEDS ORDERED: MORPHINE SULFATE 2 MG/ML VIAL IVPUSH ONE (11:45)
[2019-06-06] MEDS: SODIUM CHLORIDE 1,000 ML IV SCH (17:24)
[2019-06-06] MEDS: CHLORHEXIDINE GLUCONATE 4% CLEANSER FOR DECOLONIZATION TP SCH (21:48)
[2019-06-07] MEDS: methylPREDNISolone NA SUCC 40 MG/1 ML VIAL IVPUSH SCH ×3 (01:50→19:03)
[2019-06-07] MEDS: ALBUTEROL SO4 2.5/IPRATROPIUM 0.5 INH SOL 3 ML VIAL.NEB. NEB SCH ×4 (07:08→20:06)
--- NOTE | 2019-06-07 07:18 | PN ---
Physical Exam: SUBJECTIVE: Patient seen and examined by the bedside. Was anxious overnight and received 1mg Morphine, which alleviated his anxiety. OBJECTIVE: Vital Signs Period Temp Pulse Resp BP Sys/Ellison Pulse Ox Last 24 Hr 97.3 F-98.0 F 77-119 20-29 104-170/60-105 80-100 GENERAL: AOx3 HEAD: Normal with no signs of trauma. EYES: EOMI ENT: on BiPAP, dry mucous membranes NECK: trachea midline, supple LUNGS: crackles bilaterally, no accessory muscle use, no wheezing HEART: RRR, no murmur ABDOMEN: Soft, nontender, nondistended, normoactive bowel sounds, no guarding, no rebound EXTREMITIES: 2+ pulses, warm, no peripheral edema NEUROLOGICAL: Normal speech, gait not observed. PSYCH: anxious mood SKIN: Warm, dry Laboratory Results - last 24 hr 06/06/19 06:00 Puncture Site Left radial ABG pH 7.38 ABG pCO2 at Pt Temp 60.1 H ABG pO2 at Pt Temp 68.9 L ABG HCO3 34.4 H ABG O2 Sat (Measured) 93.8 L ABG O2 Content 15.5 ABG Base Excess 7.8 H Michael Test Positive O2 Delivery Device Bipap Oxygen Flow Rate Yes Vent Rate 16 Active Medications Generic Name Dose Route Start Last Admin Trade Name Freq PRN Reason Stop Dose Admin Albuterol Sulfate 1 amp 06/05/19 15:40 06/06/19 04:20 Ventolin 0.083% Nebulizer Soln - NEB 1 amp RQ4H PRN Administration Dyspnea Albuterol/Ipratropium 1 amp 06/05/19 08:00 06/07/19 07:08 Duoneb - NEB 1 amp RQID [facility] Administration Chlorhexidine Gluconate 1 applic 06/05/19 22:00 06/06/19 21:48 Hibiclens For Decolonization - TP 1 applic HS [facility] Administration Clopidogrel Bisulfate 75 mg 06/05/19 11:45 06/06/19 10:10 Plavix - PO 75 mg DAILY [facility] Administration Azithromycin 500 mg in 250 mls @ 250 mls/hr 06/05/19 11:45 06/06/19 10:53 Zithromax 500mg Ivpb (Pre-Docked) IVPB 250 mls/hr DAILY [facility] Administration Sodium Chloride 1,000 mls @ 42 mls/hr 06/05/19 13:51 06/06/19 17:24 Normal Saline - IV 42 mls/hr ASDIR [facility] Administration Methylprednisolone Sodium Succinate 40 mg 06/05/19 18:00 06/07/19 01:50 Solu-Medrol - IVPUSH 40 mg Q8H-IV [facility] Administration Mupirocin 1 applic 06/05/19 10:00 06/06/19 21:48 Bactroban Ointment (For Decolonization) - NS 06/10/19 09:59 1 applic BID [facility] Administration ASSESSMENT/PLAN: 64 y/o/m with PMH of [place], HLD, DM, COPD, CAD, CHF, RA, CVA and prostate CA. Presented to the ER from home on 06/04 with complaints of gradually worsening SOB and chest pain over the past 24 hours. He was lethargic on presentation and subsequently intubated. Extubated on 06/05 #ANHYDROUS [employer] - Extubated on 06/05 - Head CT - no acute pathology #Respiratory - Acute on chronic respiratory failure with hypoxia and hypercapnia requiring intubation on 06/04, extubated on 06/05 - Currently on BiPAP, will attempt to wean off BiPAP and start Hi Flow - CXR 06/07: Congestion at bases B/L, official read pending - Given 40mg Lasix - Emphysematous changes seen on chest CT 06/04 - Duonebs, Solu-medrol 40mg IV Q8hr #CVS - Hx of HTN: Can use Hydralazine for BP control, avoid Beta Blockers due to COPD exacerbation, resume home meds when appropriate - Cardio recs: BNP, Echo ordered - Clopidogrel 75mg (home emd) - POC US in ER: decreased EF with LV lateral wall motion abnormality, no b lines , IVC 100% collapsible, no pericardial effusion, no pleural effusion #ID - WBC 14.9, afebrile overnight - Lactic acid normalized - Blood, urine cx without growth to date - Azithromycin 500mg started 06/05 #GI - CTAP - Mild hepatic steatosis with subtle hepatic surface nodularity is concerning for early cirrhosis. #Renal - Cr 0.8 #Prophylaxis - Started on Heparin 5000U #FEN - N/S @ 42mls/hr - Resume diet once off BiPAP #Dispo - Continue ICU monitoring ATTENDING PHYSICIAN STATEMENT I saw and evaluated the patient. I reviewed the resident's note and discussed the case with the resident. I agree with the resident's findings and plan as documented. SUBJECTIVE: OBJECTIVE: ASSESSMENT AND PLAN:
[2019-06-07 07:42] LABS: HEMATOCRIT 35.9 % (35.4-49); HEMOGLOBIN 12.1 GM/dL (11.7-16.9); MCH 30.3 pg (25.7-33.7); MCHC 33.5 g/dl (32.0-35.9); MEAN CELL VOLUME 90.3 fl (80-96); MEAN PLT VOLUME 7.4 fl (7.5-11.1); PLATELET COUNT 317 K/MM3 (134-434); RBC 3.98 M/mm3 (4.00-5.60); RDW 15.1 % (11.9-15.9); WHITE BLOOD COUNT 14.9 K/mm3 (4.0-10.0)
[2019-06-07 08:31] LABS: BILIRUBIN,TOTAL 0.6 mg/dL (0.2-1); BLOOD UREA NITROGEN 23.5 mg/dL (7-18); CALCIUM 9.3 mg/dL (8.5-10.1); CREATININE 0.8 mg/dL (0.55-1.3); MAGNESIUM 2.8 mg/dL (1.8-2.4); PHOSPHOROUS 3.3 mg/dL (2.5-4.9); POTASSIUM 4.7 mmol/L (3.5-5.1); TOT PROT 6.5 g/dl (6.4-8.2)
[2019-06-07] MEDS: AZITHROMYCIN IVPB 500 MG/250 ML BAG IVPB SCH (09:22)
[2019-06-07] MEDS: CLOPIDOGREL BISULFATE 75 MG TABLET (FP) PO SCH (09:22)
[2019-06-07] MEDS ORDERED: POTASSIUM CHLORIDE 10 MEQ PREMIX IVPB (POTASSIUM RIDER) IVPB SCH (09:32)
--- NOTE | 2019-06-07 09:32 | PN ---
Progress Note, Physician Chief Complaint: On BiPap History of Present Illness: Exacerbation of COPD, respiratory failure - Current Medication List Current Medications: Active Medications Albuterol Sulfate (Ventolin 0.083% Nebulizer Soln -) 1 amp NEB RQ4H PRN PRN Reason: Dyspnea Last Admin: 06/06/19 04:20 Dose: 1 amp Albuterol/Ipratropium (Duoneb -) 1 amp NEB RQID [facility] Last Admin: 06/07/19 07:08 Dose: 1 amp Chlorhexidine Gluconate (Hibiclens For Decolonization -) 1 applic TP HS [facility] Last Admin: 06/06/19 21:48 Dose: 1 applic Clopidogrel Bisulfate (Plavix -) 75 mg PO DAILY [facility] Last Admin: 06/06/19 10:10 Dose: 75 mg Azithromycin (Zithromax 500mg Ivpb (Pre-Docked)) 500 mg in 250 mls @ 250 mls/ hr IVPB DAILY [facility] Last Admin: 06/06/19 10:53 Dose: 250 mls/hr Sodium Chloride (Normal Saline -) 1,000 mls @ 42 mls/hr IV ASDIR [facility] Last Admin: 06/06/19 17:24 Dose: 42 mls/hr Methylprednisolone Sodium Succinate (Solu-Medrol -) 40 mg IVPUSH Q8H-IV [facility] Last Admin: 06/07/19 01:50 Dose: 40 mg Mupirocin (Bactroban Ointment (For Decolonization) -) 1 applic NS BID [facility] Stop: 06/10/19 09:59 Last Admin: 06/06/19 21:48 Dose: 1 applic - Objective Vital Signs: Vital Signs Temperature 98.0 F 06/07/19 06:00 Pulse Rate 111 H 06/07/19 06:00 Respiratory Rate 22 H 06/07/19 06:00 Blood Pressure 130/105 H 06/07/19 06:00 O2 Sat by Pulse Oximetry (%) 97 06/07/19 08:38 Constitutional: Yes: Mild Distress Eyes: Yes: WNL HENT: Yes: WNL Neck: Yes: WNL Cardiovascular: Yes: Tachycardia Respiratory: Yes: On BiPap Gastrointestinal: Yes: Normal Bowel Sounds Edema: LLE: 1+, RLE: 1+ Neurological: Yes: Alert Labs: CBC, BMP 06/07/19 06:30 06/07/19 06:30 Assessment/Plan Change IV fluid
--- NOTE | 2019-06-07 10:29 | EKG ---
Test Reason : Blood Pressure : / mmHG Vent. Rate : 089 BPM Atrial Rate : 089 BPM P-R Int : 126 ms QRS Dur : 134 ms QT Int : 386 ms P-R-T Axes : 103 117 049 degrees QTc Int : 469 ms NORMAL SINUS RHYTHM RIGHT BUNDLE BRANCH BLOCK LEFT POSTERIOR FASCICULAR BLOCK BIFASCICULAR BLOCK ABNORMAL ECG WHEN COMPARED WITH ECG OF 04-JUN-2019 20:13, PREMATURE VENTRICULAR COMPLEXES ARE NO LONGER PRESENT Confirmed by BRIANNA RAMOS, TORSTEN ([id number]) on 06/07/2019 10:28:37 AM Referred By: Confirmed By:TORSTEN REED MD
[2019-06-07] MEDS ORDERED: FUROSEMIDE 100 MG/10 ML INJECTABLE VIAL IVPUSH ONE (11:04)
[2019-06-07] MEDS: AMINO ACIDS 4.25%/D5W 1,000 ML IV SCH (11:27)
--- NOTE | 2019-06-07 11:39 | CON.CARD ---
Consult Consult Specialty:: Cardiology - History of Present Illness History of Present Illness: 63yo man with a PMH of CAD s/p CABG, COPD on home O2 (on a list for lung transplant), HTN, HLD, HIV, CHF, RA on methotrexate, and anxiety presents to the emergency department with respiratory distress from home. Per the patient's family member, he was having SOB today over the past 24 hours and was increasingly short of breath. Per the daughter, she states he wanted to present earlier but did not. On history intake, the patient was speaking in 1 word answers and lethargic. He stated he felt short of breath and had chest tightness. Denies fevers, nausea, vomiting, dysuria, abdominal pain. PE: severe decreased breath sounds with audible rhonchi cardiac: rrr without murmurs abdomen: diffusely tender on palpation H Past medical history Major events CABG SVG to RCA 2013 Dr. Medrano Ongoing medical problems Abnormal stress test showing inferior wall ischemia April 09, 2014 [facility] CAD- Stent oRCA [address] 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 attempt 2013 [facility] - Past Medical History Cardio/Vascular: Yes: CAD, HTN, Hyperlipdemia Pulmonary: Yes: COPD Musculoskeletal: Yes: Chronic low back pain Rheumatology: Yes: Rheumatoid Arthritis - Past Surgical History Past Surgical History: Yes: CABG, Stent - Alcohol/Substance Use Hx Alcohol Use: No History of Substance Use: reports: None - Smoking History Smoking history: Unknown if ever smoked Have you smoked in the past 12 months: No Aproximately how many cigarettes per day: 0 If you are a former smoker, when did you quit?: 3YRS Home Medications - Allergies Allergies/Adverse Reactions: Allergies Allergy/AdvReac Type Severity Reaction Status Date / Time Penicillins Allergy Severe Rash Verified 06/04/19 20:16 seafood Allergy Severe Rash Uncoded 06/04/19 20:16 - Home Medications Home Medications: Ambulatory Orders Albuterol Sulfate Inhaler - [Ventolin Hfa Inhaler -] 1 - 2 inh PO Q4H PRN Budesonide/Formeterol Fumarate [SYMBICORT 160/4.5mcg -] 1 inh PO BID 05/25/18 Clopidogrel Bisulfate [Plavix] 75 mg PO DAILY 05/25/18 Folic Acid 1 mg PO DAILY 05/25/18 Furosemide [Lasix] 40 mg PO DAILY 05/25/18 Hydroxychloroquine Sulfate [Plaquenil] 200 mg PO BID 05/25/18 Methotrexate [Mexate -] 15 mg PO Q7D 05/25/18 Ramipril [Altace] 5 mg PO DAILY 05/25/18 Simvastatin [Zocor -] 40 mg PO HS 05/25/18 Azithromycin 1 tab PO WEEKLY 06/04/19 Clonazepam 0.5 mg PO BID 06/04/19 Fluticasone/Umeclidin/Vilanter [Trelegy Ellipta 100-62.5-25] 1 puff 06/04/19 Review of Systems - Review of Systems Constitutional: reports: No Symptoms Eyes: reports: No Symptoms HENT: reports: No Symptoms Neck: reports: No Symptoms Cardiovascular: reports: Shortness of Breath Respiratory: reports: Cough, SOB, SOB on Exertion Gastrointestinal: reports: No Symptoms Genitourinary: reports: No Symptoms Breasts: reports: No Symptoms Reported Musculoskeletal: reports: No Symptoms Integumentary: reports: No Symptoms Neurological: reports: No Symptoms Endocrine: reports: No Symptoms Hematology/Lymphatic: reports: No Symptoms Psychiatric: reports: No Symptoms Vital Signs: Vital Signs Temperature 98.0 F 06/07/19 06:00 Pulse Rate 111 H 06/07/19 06:00 Respiratory Rate 22 H 06/07/19 06:00 Blood Pressure 130/105 H 06/07/19 06:00 O2 Sat by Pulse Oximetry (%) 97 06/07/19 08:38 Constitutional: Yes: Mild Distress Eyes: Yes: WNL, Conjunctiva Clear, EOM Intact HENT: Yes: WNL, Atraumatic, Normocephalic Neck: Yes: WNL, Supple, Trachea Midline Respiratory: Yes: Diminished Gastrointestinal: Yes: WNL, Normal Bowel Sounds Renal/: Yes: WNL Cardiovascular: Yes: WNL, Regular Rate and Rhythm Heart Sounds: Yes: S1, S2 Musculoskeletal: Yes: WNL Extremities: Yes: WNL Edema: Yes Integumentary: Yes: WNL Neurological: Yes: WNL, Alert, Oriented ...Motor Strength: WNL Psychiatric: Yes: WNL, Alert, Oriented - Other Data Labs, Other Data: CBC, BMP 06/07/19 06:30 06/07/19 06:30 Laboratory Tests 06/04/19 06/04/19 06/04/19 20:20 20:30 20:30 WBC 22.7 H RBC 4.74 Hgb 14.0 Hct 44.2 D MCV 93.3 MCH 29.6 MCHC 31.7 L RDW 15.8 Plt Count 367 D MPV 7.5 Absolute Neuts (auto) 20.0 H Total Counted 100 Neutrophils % 87.9 H Neutrophils % (Manual) 87.0 H Band Neutrophils % 3.0 Lymphocytes % 2.4 L D Lymphocytes % (Manual) 2.0 L Monocytes % 9.5 Monocytes % (Manual) 8 Eosinophils % 0.0 D Eosinophils % (Manual) Basophils % 0.2 Basophils % (Manual) Myelocytes % (Man) Promyelocytes % (Man) Blast Cells % (Manual) Nucleated RBC % 0 Metamyelocytes Differential Comment Man diff performed Hypochromia Platelet Estimate Adequate Platelet Comment Polychromasia Poikilocytosis 1+ Anisocytosis 1+ Microcytosis Macrocytosis 1+ Ovalocytes 1+ Anticoagulation Therapy Puncture Site Patient Temperature ABG pH ABG pCO2 at Pt Temp ABG pO2 at Pt Temp ABG HCO3 ABG O2 Sat (Measured) ABG O2 Content ABG Base Excess Michael Test Carboxyhemoglobin Methemoglobin O2 Delivery Device Oxygen Flow Rate Vent Mode Vent Rate Mechanical Rate PEEP Pressure Support Vent Sodium 137 Potassium 5.2 H Chloride 96 L Carbon Dioxide 35 H Anion Gap 6 L BUN 23.9 H Creatinine 1.0 Est GFR (CKD-EPI)AfAm 93.08 Est GFR (CKD-EPI)NonAf 80.31 Random Glucose 123 H Lactic Acid 4.0 H* Calcium 8.8 Phosphorus Magnesium 2.6 H Total Bilirubin 1.2 H AST 29 ALT 34 Alkaline Phosphatase 102 Creatine Kinase 196 Creatine Kinase Index 4.5 CK-MB (CK-2) 8.9 H Troponin I < 0.02 Total Protein 7.5 Albumin 3.9 Urine Color Urine Appearance Urine pH Ur Specific [place] Urine Protein Urine Glucose (UA) Urine Ketones Urine Blood Urine Nitrite Urine Bilirubin Urine Urobilinogen Ur Leukocyte Esterase Urine WBC (Auto) Urine RBC (Auto) Urine Casts (Auto) U Epithel Cells (Auto) Urine Bacteria (Auto) Influenza A (Rapid) Influenza B (Rapid) 06/04/19 06/04/19 06/04/19 20:30 21:35 23:50 WBC RBC Hgb Hct MCV MCH MCHC RDW Plt Count MPV Absolute Neuts (auto) Total Counted Neutrophils % Neutrophils % (Manual) Band Neutrophils % Lymphocytes % Lymphocytes % (Manual) Monocytes % Monocytes % (Manual) Eosinophils % Eosinophils % (Manual) Basophils % Basophils % (Manual) Myelocytes % (Man) Promyelocytes % (Man) Blast Cells % (Manual) Nucleated RBC % Metamyelocytes Differential Comment Hypochromia Platelet Estimate Platelet Comment Polychromasia Poikilocytosis Anisocytosis Microcytosis Macrocytosis Ovalocytes Anticoagulation Therapy Cancelled No Result Required. No Result Required. Puncture Site Cancelled Right radial Right radial Patient Temperature Cancelled ABG pH Cancelled 7.09 L* 7.20 L ABG pCO2 at Pt Temp Cancelled > 100 H* 80.2 H* ABG pO2 at Pt Temp Cancelled 323 H 197 H ABG HCO3 Cancelled No Result Required. 29.9 H ABG O2 Sat (Measured) Cancelled 99.3 H 99.5 H ABG O2 Content Cancelled 17.8 16.6 ABG Base Excess Cancelled No Result Required. 0.2 Michael Test Cancelled Positive Positive Carboxyhemoglobin Cancelled 0.7 Methemoglobin Cancelled < 1.0 O2 Delivery Device Cancelled No Result Required. Vent Oxygen Flow Rate Cancelled 80% 60% Vent Mode Cancelled A/c A/c Vent Rate Cancelled 18 18 Mechanical Rate Cancelled No Result Required. Yes PEEP Cancelled 5.0 5.0 Pressure Support Vent Cancelled 400 400 Sodium Potassium Chloride Carbon Dioxide Anion Gap BUN Creatinine Est GFR (CKD-EPI)AfAm Est GFR (CKD-EPI)NonAf Random Glucose Lactic Acid Calcium Phosphorus Magnesium Total Bilirubin AST ALT Alkaline Phosphatase Creatine Kinase Creatine Kinase Index CK-MB (CK-2) Troponin I Total Protein Albumin Urine Color Urine Appearance Urine pH Ur Specific [place] Urine Protein Urine Glucose (UA) Urine Ketones Urine Blood Urine Nitrite Urine Bilirubin Urine Urobilinogen Ur Leukocyte Esterase Urine WBC (Auto) Urine RBC (Auto) Urine Casts (Auto) U Epithel Cells (Auto) Urine Bacteria (Auto) Influenza A (Rapid) Influenza B (Rapid) 06/05/19 06/05/19 06/05/19 00:10 00:50 05:50 WBC RBC Hgb Hct MCV MCH MCHC RDW Plt Count MPV Absolute Neuts (auto) Total Counted Neutrophils % Neutrophils % (Manual) Band Neutrophils % Lymphocytes % Lymphocytes % (Manual) Monocytes % Monocytes % (Manual) Eosinophils % Eosinophils % (Manual) Basophils % Basophils % (Manual) Myelocytes % (Man) Promyelocytes % (Man) Blast Cells % (Manual) Nucleated RBC % Metamyelocytes Differential Comment Hypochromia Platelet Estimate Platelet Comment Polychromasia Poikilocytosis Anisocytosis Microcytosis Macrocytosis Ovalocytes Anticoagulation Therapy No Result Required. Puncture Site Right radial Patient Temperature ABG pH 7.33 L ABG pCO2 at Pt Temp 62.6 H ABG pO2 at Pt Temp 180 H ABG HCO3 32.1 H ABG O2 Sat (Measured) 99.5 H ABG O2 Content 16.3 ABG Base Excess 5.1 H Michael Test Positive Carboxyhemoglobin Methemoglobin O2 Delivery Device Vent Oxygen Flow Rate 60% Vent Mode A/c Vent Rate 18 Mechanical Rate Yes PEEP 5.0 Pressure Support Vent 400 Sodium Potassium Chloride Carbon Dioxide Anion Gap BUN Creatinine Est GFR (CKD-EPI)AfAm Est GFR (CKD-EPI)NonAf Random Glucose Lactic Acid 1.7 Calcium Phosphorus Magnesium Total Bilirubin AST ALT Alkaline Phosphatase Creatine Kinase Creatine Kinase Index CK-MB (CK-2) Troponin I Total Protein Albumin Urine Color Urine Appearance Urine pH Ur Specific [place] Urine Protein Urine Glucose (UA) Urine Ketones Urine Blood Urine Nitrite Urine Bilirubin Urine Urobilinogen Ur Leukocyte Esterase Urine WBC (Auto) Urine RBC (Auto) Urine Casts (Auto) U Epithel Cells (Auto) Urine Bacteria (Auto) Influenza A (Rapid) Negative Influenza B (Rapid) Negative 06/05/19 06/05/19 06/05/19 06:00 06:20 06:20 WBC 18.8 H RBC 3.80 L Hgb 11.3 L Hct 34.9 L D MCV 91.8 MCH 29.8 MCHC 32.5 RDW 15.9 Plt Count 282 D MPV 7.5 Absolute Neuts (auto) 18.0 H Total Counted Neutrophils % 95.9 H Neutrophils % (Manual) 95.0 H Band Neutrophils % 0.0 Lymphocytes % 1.5 L D Lymphocytes % (Manual) 2.0 L Monocytes % 2.6 L Monocytes % (Manual) 2 L Eosinophils % 0.0 Eosinophils % (Manual) 0.0 Basophils % 0.0 Basophils % (Manual) 0.0 Myelocytes % (Man) 0 Promyelocytes % (Man) 0 Blast Cells % (Manual) 0 Nucleated RBC % 0 Metamyelocytes 1 Differential Comment Hypochromia 0 Platelet Estimate Normal Platelet Comment Polychromasia 0 Poikilocytosis 0 Anisocytosis 1+ Microcytosis 0 Macrocytosis 0 Ovalocytes Anticoagulation Therapy Puncture Site Patient Temperature ABG pH ABG pCO2 at Pt Temp ABG pO2 at Pt Temp ABG HCO3 ABG O2 Sat (Measured) ABG O2 Content ABG Base Excess Michael Test Carboxyhemoglobin Methemoglobin O2 Delivery Device Oxygen Flow Rate Vent Mode Vent Rate Mechanical Rate PEEP Pressure Support Vent Sodium 139 Potassium 5.0 Chloride 101 Carbon Dioxide 32 Anion Gap 6 L BUN 16.7 Creatinine 0.7 Est GFR (CKD-EPI)AfAm 117.22 Est GFR (CKD-EPI)NonAf 101.14 Random Glucose 114 H Lactic Acid 1.1 Calcium 8.3 L Phosphorus 2.1 L Magnesium 2.9 H Total Bilirubin 0.8 AST 25 ALT 25 Alkaline Phosphatase 76 Creatine Kinase Creatine Kinase Index CK-MB (CK-2) Troponin I Total Protein 5.9 L Albumin 2.8 L Urine Color Urine Appearance Urine pH Ur Specific [place] Urine Protein Urine Glucose (UA) Urine Ketones Urine Blood Urine Nitrite Urine Bilirubin Urine Urobilinogen Ur Leukocyte Esterase Urine WBC (Auto) Urine RBC (Auto) Urine Casts (Auto) U Epithel Cells (Auto) Urine Bacteria (Auto) Influenza A (Rapid) Influenza B (Rapid) 06/05/19 06/05/19 06/06/19 13:55 20:30 05:33 WBC 18.2 H RBC 3.97 L Hgb 11.9 Hct 36.2 MCV 91.1 MCH 30.0 MCHC 32.9 RDW 16.2 H Plt Count 292 MPV 7.5 Absolute Neuts (auto) Total Counted Neutrophils % Neutrophils % (Manual) Band Neutrophils % Lymphocytes % Lymphocytes % (Manual) Monocytes % Monocytes % (Manual) Eosinophils % Eosinophils % (Manual) Basophils % Basophils % (Manual) Myelocytes % (Man) Promyelocytes % (Man) Blast Cells % (Manual) Nucleated RBC % Metamyelocytes Differential Comment Hypochromia Platelet Estimate Platelet Comment Polychromasia Poikilocytosis Anisocytosis Microcytosis Macrocytosis Ovalocytes Anticoagulation Therapy No Result Required. Puncture Site Right radial Patient Temperature ABG pH 7.33 L ABG pCO2 at Pt Temp 62.3 H ABG pO2 at Pt Temp 66.6 L ABG HCO3 31.8 H ABG O2 Sat (Measured) 93.3 L ABG O2 Content 15.6 ABG Base Excess 4.7 H Michael Test Positive Carboxyhemoglobin Methemoglobin O2 Delivery Device No Result Required. Oxygen Flow Rate Yes Vent Mode No Result Required. Vent Rate 16 Mechanical Rate No Result Required. PEEP Pressure Support Vent No Result Required. Sodium Potassium Chloride Carbon Dioxide Anion Gap BUN Creatinine Est GFR (CKD-EPI)AfAm Est GFR (CKD-EPI)NonAf Random Glucose Lactic Acid Calcium Phosphorus Magnesium Total Bilirubin AST ALT Alkaline Phosphatase Creatine Kinase Creatine Kinase Index CK-MB (CK-2) Troponin I Total Protein Albumin Urine Color Yellow Urine Appearance Cloudy Urine pH 5.5 Ur Specific [place] 1.021 Urine Protein 1+ H Urine Glucose (UA) Negative Urine Ketones 1+ H Urine Blood 3+ H Urine Nitrite Negative Urine Bilirubin Negative Urine Urobilinogen 1.0 Ur Leukocyte Esterase 1+ H Urine WBC (Auto) 32 Urine RBC (Auto) 1107 Urine Casts (Auto) 11 U Epithel Cells (Auto) 2.7 Urine Bacteria (Auto) 1.2 Influenza A (Rapid) Influenza B (Rapid) 06/06/19 06/06/19 06/07/19 05:33 06:00 06:30 WBC 14.9 H RBC 3.98 L Hgb 12.1 Hct 35.9 MCV 90.3 MCH 30.3 MCHC 33.5 RDW 15.1 Plt Count 317 MPV 7.4 L Absolute Neuts (auto) Total Counted Neutrophils % Neutrophils % (Manual) Band Neutrophils % Lymphocytes % Lymphocytes % (Manual) Monocytes % Monocytes % (Manual) Eosinophils % Eosinophils % (Manual) Basophils % Basophils % (Manual) Myelocytes % (Man) Promyelocytes % (Man) Blast Cells % (Manual) Nucleated RBC % Metamyelocytes Differential Comment Hypochromia Platelet Estimate Platelet Comment Polychromasia Poikilocytosis Anisocytosis Microcytosis Macrocytosis Ovalocytes Anticoagulation Therapy Puncture Site Left radial Patient Temperature ABG pH 7.38 ABG pCO2 at Pt Temp 60.1 H ABG pO2 at Pt Temp 68.9 L ABG HCO3 34.4 H ABG O2 Sat (Measured) 93.8 L ABG O2 Content 15.5 ABG Base Excess 7.8 H Michael Test Positive Carboxyhemoglobin Methemoglobin O2 Delivery Device Bipap Oxygen Flow Rate Yes Vent Mode Vent Rate 16 Mechanical Rate PEEP Pressure Support Vent Sodium 139 Potassium 5.0 Chloride 98 Carbon Dioxide 36 H Anion Gap 5 L BUN 15.0 Creatinine 0.8 Est GFR (CKD-EPI)AfAm 110.96 Est GFR (CKD-EPI)NonAf 95.74 Random Glucose 130 H Lactic Acid Calcium 9.0 Phosphorus 3.2 Magnesium 2.6 H Total Bilirubin 0.6 AST 25 ALT 28 Alkaline Phosphatase 80 Creatine Kinase Creatine Kinase Index CK-MB (CK-2) Troponin I Total Protein 6.5 Albumin 3.1 L Urine Color Urine Appearance Urine pH Ur Specific [place] Urine Protein Urine Glucose (UA) Urine Ketones Urine Blood Urine Nitrite Urine Bilirubin Urine Urobilinogen Ur Leukocyte Esterase Urine WBC (Auto) Urine RBC (Auto) Urine Casts (Auto) U Epithel Cells (Auto) Urine Bacteria (Auto) Influenza A (Rapid) Influenza B (Rapid) 06/07/19 06:30 WBC RBC Hgb Hct MCV MCH MCHC RDW Plt Count MPV Absolute Neuts (auto) Total Counted Neutrophils % Neutrophils % (Manual) Band Neutrophils % Lymphocytes % Lymphocytes % (Manual) Monocytes % Monocytes % (Manual) Eosinophils % Eosinophils % (Manual) Basophils % Basophils % (Manual) Myelocytes % (Man) Promyelocytes % (Man) Blast Cells % (Manual) Nucleated RBC % Metamyelocytes Differential Comment Hypochromia Platelet Estimate Platelet Comment Polychromasia Poikilocytosis Anisocytosis Microcytosis Macrocytosis Ovalocytes Anticoagulation Therapy Puncture Site Patient Temperature ABG pH ABG pCO2 at Pt Temp ABG pO2 at Pt Temp ABG HCO3 ABG O2 Sat (Measured) ABG O2 Content ABG Base Excess Michael Test Carboxyhemoglobin Methemoglobin O2 Delivery Device Oxygen Flow Rate Vent Mode Vent Rate Mechanical Rate PEEP Pressure Support Vent Sodium 142 Potassium 4.7 Chloride 99 Carbon Dioxide 38 H Anion Gap 5 L BUN 23.5 H Creatinine 0.8 Est GFR (CKD-EPI)AfAm 110.96 Est GFR (CKD-EPI)NonAf 95.74 Random Glucose 108 H Lactic Acid Calcium 9.3 Phosphorus 3.3 Magnesium 2.8 H Total Bilirubin 0.6 AST 22 ALT 27 Alkaline Phosphatase 80 Creatine Kinase Creatine Kinase Index CK-MB (CK-2) Troponin I Total Protein 6.5 Albumin 3.0 L Urine Color Urine Appearance Urine pH Ur Specific [place] Urine Protein Urine Glucose (UA) Urine Ketones Urine Blood Urine Nitrite Urine Bilirubin Urine Urobilinogen Ur Leukocyte Esterase Urine WBC (Auto) Urine RBC (Auto) Urine Casts (Auto) U Epithel Cells (Auto) Urine Bacteria (Auto) Influenza A (Rapid) Influenza B (Rapid) Imaging - Results Chest X-ray: Image Reviewed (s/p OHS no i/e) EKG: Image Reviewed (s tachy rep abn) Problem List - Problems (1) Acute on chronic respiratory failure with hypoxia and hypercapnia Code(s): J96.21 - ACUTE AND CHRONIC RESPIRATORY FAILURE WITH HYPOXIA; J96.22 - ACUTE AND CHRONIC RESPIRATORY FAILURE WITH HYPERCAPNIA (2) Abnormal LFTs Code(s): R79.89 - OTHER SPECIFIED ABNORMAL FINDINGS OF BLOOD CHEMISTRY (3) Abscess of calf Code(s): L02.419 - CUTANEOUS ABSCESS OF LIMB, UNSPECIFIED (4) Acute on chronic respiratory failure with hypoxemia Code(s): J96.21 - ACUTE AND CHRONIC RESPIRATORY FAILURE WITH HYPOXIA (5) Anxiety Code(s): F41.9 - ANXIETY DISORDER, UNSPECIFIED (6) CAD (coronary artery disease) Code(s): I25.10 - ATHSCL HEART DISEASE OF [place] CORONARY ARTERY W/O ANG PCTRS Qualifiers: Coronary Disease-Associated Artery/Lesion type: [place] artery [place] vs. transplanted heart: [place] heart Associated angina: without angina Qualified Code(s): I25.10 - Atherosclerotic heart disease of [place] coronary artery without angina pectoris (7) COPD (chronic obstructive pulmonary disease) Code(s): J44.9 - CHRONIC OBSTRUCTIVE PULMONARY DISEASE, UNSPECIFIED Qualifiers: COPD type: emphysema Emphysema type: unspecified Qualified Code(s): J43.9 - Emphysema, unspecified (8) COPD exacerbation Code(s): J44.1 - CHRONIC OBSTRUCTIVE PULMONARY DISEASE W (ACUTE) EXACERBATION (9) Chronic pain Code(s): G89.29 - OTHER CHRONIC PAIN (10) Compression fracture of L1 lumbar vertebra Code(s): S32.010A - [place]GE COMPRESSION FRACTURE OF FIRST LUMBAR VERTEBRA, INIT Qualifiers: Encounter type: initial encounter (11) Congestive cardiac failure Code(s): I50.9 - HEART FAILURE, UNSPECIFIED (12) Cough Code(s): R05 - COUGH (13) Diastolic CHF Code(s): I50.30 - UNSPECIFIED DIASTOLIC (CONGESTIVE) HEART FAILURE Qualifiers: Heart failure chronicity: unspecified Qualified Code(s): I50.30 - Unspecified diastolic (congestive) heart failure (14) Edema Code(s): R60.9 - EDEMA, UNSPECIFIED Qualifiers: Edema type: unspecified Qualified Code(s): R60.9 - Edema, unspecified (15) HTN (hypertension) Code(s): I10 - ESSENTIAL (PRIMARY) HYPERTENSION Qualifiers: Hypertension type: essential hypertension Qualified Code(s): I10 - Essential (primary) hypertension (16) History of coronary artery bypass graft Code(s): Z95.1 - PRESENCE OF AORTOCORONARY BYPASS GRAFT (17) History of percutaneous coronary intervention Code(s): Z98.89 - OTHER SPECIFIED POSTPROCEDURAL STATES * DO NOT USE * (18) Hypercholesterolemia Code(s): E78.0 - PURE HYPERCHOLESTEROLEMIA * DO NOT USE * (19) Hyperkalemia Code(s): E87.5 - HYPERKALEMIA (20) Inguinal hernia Code(s): K40.90 - UNIL INGUINAL HERNIA, W/O OBST OR GANGR, NOT SPCF RECUR (21) Intractable pain Code(s): R52 - PAIN, UNSPECIFIED (22) LLQ pain Code(s): R10.32 - LEFT LOWER QUADRANT PAIN (23) Left groin pain Code(s): R10.32 - LEFT LOWER QUADRANT PAIN (24) Leg pain Code(s): M79.606 - PAIN IN LEG, UNSPECIFIED (25) Lower extremity edema Code(s): R60.0 - LOCALIZED EDEMA (26) Lumbar disc herniation Code(s): M51.26 - OTHER INTERVERTEBRAL DISC DISPLACEMENT, LUMBAR REGION (27) Nosebleed Code(s): R04.0 - EPISTAXIS (28) PSVT (paroxysmal supraventricular tachycardia) Code(s): I47.1 - SUPRAVENTRICULAR TACHYCARDIA (29) Pain and swelling of right lower leg Code(s): M79.661 - PAIN IN RIGHT LOWER LEG; M79.89 - OTHER SPECIFIED SOFT TISSUE DISORDERS (30) Pneumonia Code(s): J18.9 - PNEUMONIA, UNSPECIFIED ORGANISM (31) Radiculopathy Code(s): M54.10 - RADICULOPATHY, SITE UNSPECIFIED Qualifiers: Spinal region: lumbar Qualified Code(s): M54.16 - Radiculopathy, lumbar region (32) Rheumatoid arthritis Code(s): M06.9 - RHEUMATOID ARTHRITIS, UNSPECIFIED (33) Rheumatoid arthritis involving ankle with positive rheumatoid factor Code(s): M05.779 - RHEU ARTHRIT W RHEU FACTOR OF UNSP ANK/FT W/O ORG/SYS INVOLV Qualifiers: Laterality: bilateral Qualified Code(s): M05.771 - Rheumatoid arthritis with rheumatoid factor of right ankle and foot without organ or systems involvement; M05.772 - Rheumatoid arthritis with rheumatoid factor of left ankle and foot without organ or systems involvement (34) Rheumatoid arthritis of multiple sites without organ or system involvement with positive rheumatoid factor Code(s): M05.79 - RHEU ARTHRITIS W RHEU FACTOR MULT SITE W/O ORG/SYS INVOLV (35) Sinus tachycardia Code(s): R00.0 - TACHYCARDIA, UNSPECIFIED Assessment/Plan Acute on Chronic Hypoxic and Hypercapneic Respiratory Failure Acute COPD Exacerbation Emphysema CAD s/p CABG HTN DM Hyperlipidemia Rheumatoid Arthritis h/o CVA Prostate Ca Anemia Lactic acidosis CABG SVG to RCA 2013 Dr. Medrano Abnormal stress test showing inferior wall ischemia April 09, 2014 [facility] CAD- Stent oRCA 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
--- NOTE | 2019-06-07 11:54 | PN ---
Teaching Attending Note Name of Resident: Steve Hernandez ATTENDING PHYSICIAN STATEMENT I saw and evaluated the patient. I reviewed the resident's note and discussed the case with the resident. I agree with the resident's findings and plan as documented. SUBJECTIVE: Pt seen and examined in the ICU. Remains tachypneic on BiPAP. CXR showing bibasilar effusions. OBJECTIVE: Vital Signs Period Temp Pulse Resp BP Sys/Ellison Pulse Ox Last 24 Hr 97.5 F-98.0 F 77-119 20-29 104-157/60-105 89-100 Intake & Output 06/04/19 06/05/19 06/06/19 06/07/19 23:59 23:59 23:59 23:59 Intake Total 2214 1058 210 Output Total 2525 1025 275 Balance -311 33 -65 Weight 58.559 kg 58.542 kg 60.781 kg 58.2 kg Gen: tachypneic on BiPAP Heart: RRR Lung: distant breath sounds Abd: soft, nontender Ext: + edema CBC, BMP 06/07/19 06:30 06/07/19 06:30 Active Medications Albuterol Sulfate (Ventolin 0.083% Nebulizer Soln -) 1 amp NEB RQ4H PRN PRN Reason: Dyspnea Last Admin: 06/06/19 04:20 Dose: 1 amp Albuterol/Ipratropium (Duoneb -) 1 amp NEB RQID [facility] Last Admin: 06/07/19 11:51 Dose: 1 amp Chlorhexidine Gluconate (Hibiclens For Decolonization -) 1 applic TP HS [facility] Last Admin: 06/06/19 21:48 Dose: 1 applic Clopidogrel Bisulfate (Plavix -) 75 mg PO DAILY [facility] Last Admin: 06/07/19 09:22 Dose: 75 mg Heparin Sodium (Porcine) (Heparin -) 5,000 unit SQ TID [facility] Azithromycin (Zithromax 500mg Ivpb (Pre-Docked)) 500 mg in 250 mls @ 250 mls/ hr IVPB DAILY [facility] Last Admin: 06/07/19 09:22 Dose: 250 mls/hr Amino Acids (Clinimix -) 1,000 mls @ 84 mls/hr IV Q12H [facility] Last Admin: 06/07/19 11:27 Dose: 84 mls/hr Methylprednisolone Sodium Succinate (Solu-Medrol -) 40 mg IVPUSH Q8H-IV [facility] Last Admin: 06/07/19 09:23 Dose: 40 mg Morphine Sulfate (Morphine Sulfate) 2 mg IVPUSH Q4H PRN PRN Reason: PAIN LEVEL 6-10 Mupirocin (Bactroban Ointment (For Decolonization) -) 1 applic NS BID [facility] Stop: 06/10/19 09:59 Last Admin: 06/06/19 21:48 Dose: 1 applic ASSESSMENT AND PLAN: Acute on Chronic Hypoxic and Hypercapneic Respiratory Failure Acute COPD Exacerbation Emphysema CAD HTN DM Hyperlipidemia Rheumatoid Arthritis h/o CVA Prostate Ca Anemia - continue BiPAP - can attempt HFOT - continue medrol - inhaled bronchodilators standing and PRN - lasix today - monitor urine output, creatinine - O2 to keep Spo2 88-92% - azithromycin - continue ICU monitoring critical care time spent in reviewing chart, evaluating patient and formulating plan 35 min
[2019-06-07] MEDS: MORPHINE SULFATE 2 MG/ML VIAL IVPUSH PRN (12:19)
--- NOTE | 2019-06-07 13:47 | ECHO ---
Name: NICOLE CLEARY, JR Exam:Adult Echocardiogram Study Date: 06/07/2019 12:46 PM Age: 64 yrs Height: 64 in Weight: 128 lb BSA: 1.6 m2 MMode/2D Measurements & Calculations IVSd: 1.1 cm Ao root diam: 3.1 cm LVIDd: 3.7 cm LA dimension: 2.2 cm LVIDs: 2.7 cm LVPWd: 0.91 cm LVPWs: 1.2 cm EDV(Teich): 59.1 ml ESV(Teich): 26.5 ml LVOT diam: 2.4 cm RV S George: 9.7 cm/sec Doppler Measurements & Calculations MV E max george: 47.1 cm/sec Ao V2 max: 77.3 cm/sec MV A max george: 88.3 cm/sec Ao max P.4 mmHg MV E/A: 0.53 MV dec time: 0.07 sec ROBINSON(V,D): 3.8 cm2 LV V1 max P.7 mmHg TR max george: 275.5 cm/sec LV V1 max: 65.0 cm/sec TR max P.6 mmHg PA V2 max: 104.7 cm/sec Med Peak E' George: 4.0 cm/sec PA max P.4 mmHg Med E/e': 11.7 Lat Peak E' George: 7.1 cm/sec Lat E/e': 6.7 Procedure A two-dimensional transthoracic echocardiogram with color flow and Doppler was performed. Left Ventricle The left ventricular size, thickness and function are normal. The left ventricular ejection fraction is normal. Septal motion is consistent with post-operative state. Right Ventricle The right ventricle is not well visualized. Atria Normal left and right atrial size and function. Mitral Valve There is mild mitral valve thickening. There is no mitral valve stenosis. There is mild mitral regurg itation. Tricuspid Valve There is mild tricuspid valve thickening. There is no tricuspid stenosis. There is mild tricuspid regurgitation. Right ventricular systolic pressure is elevated at 40-50mmHg. Aortic Valve The aortic valve is not well visualized. No hemodynamically significant valvular aortic stenosis. No aortic regurgitation is present. Pulmonic Valve The pulmonic valve is not well visualized. Great Vessels The aortic root is normal size. Pericardium/Pleura There is no pericardial effusion. Interpretation Summary The left ventricular size, thickness and function are normal The left ventricular ejection fraction is normal. Septal motion is consistent with post-operative state. There is mild mitral regurgitation. There is mild tricuspid regurgitation. Right ventricular systolic pressure is elevated at 40-50mmHg. MD Mark Vaughn 06/07/2019 01:46 PM
[2019-06-07] MEDS: HEPARIN NA (PORCINE) 5,000 UNITS/ML 1ML VIAL SQ SCH ×2 (16:50→21:47)
[2019-06-07] MEDS: MUPIROCIN 2% TOPICAL OINTMENT FOR DECOLONIZATION NS SCH ×3 (16:51→21:47)
[2019-06-07] MEDS: CHLORHEXIDINE GLUCONATE 4% CLEANSER FOR DECOLONIZATION TP SCH (21:47)
[2019-06-08] MEDS: AMINO ACIDS 4.25%/D5W 1,000 ML IV SCH ×2 (00:53→15:06)
[2019-06-08] MEDS: methylPREDNISolone NA SUCC 40 MG/1 ML VIAL IVPUSH SCH ×4 (01:44→22:06)
[2019-06-08] MEDS: HEPARIN NA (PORCINE) 5,000 UNITS/ML 1ML VIAL SQ SCH ×3 (06:13→22:06)
--- NOTE | 2019-06-08 07:16 | PN ---
Physical Exam: SUBJECTIVE: Patient seen and examined. Patient able to speak in full sentences today with less SOB. Still feels uncomfortable. Complains of hunger, will trial off BiPAP so patient has an opportunity to eat. OBJECTIVE: Vital Signs Period Temp Pulse Resp BP Sys/Ellison Pulse Ox Last 24 Hr 97.8 F-98.3 F 74-116 14-22 110-143/68-88 95-100 GENERAL: The patient is awake, alert, and fully oriented, in mild respiratory distress. HEAD: Normal with no signs of trauma. EYES: EOMI, no scleral icterus ENT: on BiPAP, dry mucous membranes NECK: trachea midline, supple LUNGS: crackles bilaterally, no accessory muscle use, no wheezing HEART: RRR, no murmur ABDOMEN: Soft, nontender, nondistended, normoactive bowel sounds, no guarding, no rebound EXTREMITIES: 2+ pulses, warm NEUROLOGICAL: Normal speech, gait not observed. PSYCH: anxious mood SKIN: Warm, dry Laboratory Results - last 24 hr 06/07/19 06/07/19 06:30 06:30 WBC 14.9 H RBC 3.98 L Hgb 12.1 Hct 35.9 MCV 90.3 MCH 30.3 MCHC 33.5 RDW 15.1 Plt Count 317 MPV 7.4 L Sodium 142 Potassium 4.7 Chloride 99 Carbon Dioxide 38 H Anion Gap 5 L BUN 23.5 H Creatinine 0.8 Est GFR (CKD-EPI)AfAm 110.96 Est GFR (CKD-EPI)NonAf 95.74 Random Glucose 108 H Calcium 9.3 Phosphorus 3.3 Magnesium 2.8 H Total Bilirubin 0.6 AST 22 ALT 27 Alkaline Phosphatase 80 Total Protein 6.5 Albumin 3.0 L Active Medications Generic Name Dose Route Start Last Admin Trade Name Freq PRN Reason Stop Dose Admin Albuterol Sulfate 1 amp 06/05/19 15:40 06/06/19 04:20 Ventolin 0.083% Nebulizer Soln - NEB 1 amp RQ4H PRN Administration Dyspnea Albuterol/Ipratropium 1 amp 06/05/19 08:00 06/07/19 20:06 Duoneb - NEB 1 amp RQID [facility] Administration Chlorhexidine Gluconate 1 applic 06/05/19 22:00 06/07/19 21:47 Hibiclens For Decolonization - TP 1 applic HS [facility] Administration Clopidogrel Bisulfate 75 mg 06/05/19 11:45 06/07/19 09:22 Plavix - PO 75 mg DAILY [facility] Administration Heparin Sodium (Porcine) 5,000 unit 06/07/19 14:00 06/08/19 06:13 Heparin - SQ 5,000 unit TID [facility] Administration Azithromycin 500 mg in 250 mls @ 250 mls/hr 06/05/19 11:45 06/07/19 09:22 Zithromax 500mg Ivpb (Pre-Docked) IVPB 250 mls/hr DAILY [facility] Administration Amino Acids 1,000 mls @ 84 mls/hr 06/07/19 09:45 06/08/19 00:53 Clinimix - IV 84 mls/hr Q12H [facility] Administration Methylprednisolone Sodium Succinate 40 mg 06/05/19 18:00 06/08/19 01:44 Solu-Medrol - IVPUSH 40 mg Q8H-IV [facility] Administration Morphine Sulfate 2 mg 06/07/19 11:05 06/07/19 12:19 Morphine Sulfate IVPUSH 2 mg Q4H PRN Administration PAIN LEVEL 6-10 Mupirocin 1 applic 06/05/19 10:00 06/07/19 21:47 Bactroban Ointment (For Decolonization) - NS 06/10/19 09:59 1 applic BID [facility] Administration ASSESSMENT/PLAN: 64 y/o/m with PMH of [place], HLD, DM, COPD, CAD, CHF, RA, CVA and prostate CA. Presented to the ER from home on 06/04 with complaints of gradually worsening SOB and chest pain over the past 24 hours. He was lethargic on presentation and subsequently intubated. Extubated on 06/05 #[employer] - Extubated on 06/05 - Head CT - no acute pathology #Respiratory - Acute on chronic respiratory failure with hypoxia and hypercapnia requiring intubation on 06/04, extubated on 06/05 - Currently on BiPAP, trial on Venti Mask and continue to wean as tolerated - CXR shows improvement at bases. - Given 40mg Lasix yesterday with good response - Emphysematous changes seen on chest CT 06/04 - Duonebs, Solu-medrol 60mg IV Q6hr #CVS - Hx of HTN: Can use Hydralazine for BP control, avoid Beta Blockers due to COPD exacerbation, resume home meds when appropriate - ECHO showing normal EF, elevated RV systolic pressure - BNP elevated to 2675, higher than prior admissions - Clopidogrel 75mg (home med) - POC US in ER: decreased EF with LV lateral wall motion abnormality, no b lines , IVC 100% collapsible, no pericardial effusion, no pleural effusion #ID - WBC 11.7, afebrile - Lactic acid normalized - Blood, urine cx without growth to date - Azithromycin 500mg started 06/05 #GI - CTAP - Mild hepatic steatosis with subtle hepatic surface nodularity is concerning for early cirrhosis. #Renal - Cr 0.8 #Prophylaxis - Heparin #FEN - Clinimix with multivitamin additive @84mls/hr - dysphagia puree diet started #Dispo - Continue ICU monitoring Visit type - Emergency Visit Emergency Visit: Yes ED Registration Date: 06/04/19 Care time: The patient presented to the Emergency Department on the above date and was hospitalized for further evaluation of their emergent condition. - New Patient This patient is new to me today: No - Critical Care Critical Care patient: Yes Total Critical Care Time (in minutes): 36 Critical Care Statement: The care of this patient involved high complexity decision making to prevent further life threatening deterioration of the patient 's condition and/or to evaluate & treat vital organ system(s) failure or risk of failure. ATTENDING PHYSICIAN STATEMENT I saw and evaluated the patient. I reviewed the resident's note and discussed the case with the resident. I agree with the resident's findings and plan as documented. SUBJECTIVE: OBJECTIVE: ASSESSMENT AND PLAN:
[2019-06-08 07:44] LABS: BASO % 0.2 % (0-2.0); HEMATOCRIT 37.3 % (35.4-49); HEMOGLOBIN 12.5 GM/dL (11.7-16.9); MCH 30.4 pg (25.7-33.7); MCHC 33.6 g/dl (32.0-35.9); MEAN CELL VOLUME 90.4 fl (80-96); MEAN PLT VOLUME 7.4 fl (7.5-11.1); NEUT % 92.8 % (42.8-82.8); PLATELET COUNT 319 K/MM3 (134-434); RBC 4.13 M/mm3 (4.00-5.60); RDW 15.4 % (11.9-15.9); WHITE BLOOD COUNT 11.7 K/mm3 (4.0-10.0)
[2019-06-08 08:25] LABS: ALBUMIN 2.8 g/dl (3.4-5.0); BILIRUBIN,TOTAL 0.7 mg/dL (0.2-1); BLOOD UREA NITROGEN 30.5 mg/dL (7-18); CALCIUM 9.2 mg/dL (8.5-10.1); CREATININE 0.7 mg/dL (0.55-1.3); N-TERMINAL BNP 2675.5 pg/ml (5-125); POTASSIUM 4.6 mmol/L (3.5-5.1); TOT PROT 6.2 g/dl (6.4-8.2)
[2019-06-08] MEDS: ALBUTEROL SO4 2.5/IPRATROPIUM 0.5 INH SOL 3 ML VIAL.NEB. NEB SCH ×4 (08:30→20:30)
[2019-06-08 09:12] LABS: PLATELET ESTIMATE NORMAL
[2019-06-08] MEDS: MORPHINE SULFATE 2 MG/ML VIAL IVPUSH PRN ×2 (09:55→16:33)
--- NOTE | 2019-06-08 10:07 | PN ---
Progress Note, Physician Chief Complaint: Feels little better History of Present Illness: S/P extubation - Current Medication List Current Medications: Active Medications Albuterol Sulfate (Ventolin 0.083% Nebulizer Soln -) 1 amp NEB RQ4H PRN PRN Reason: Dyspnea Last Admin: 06/06/19 04:20 Dose: 1 amp Albuterol/Ipratropium (Duoneb -) 1 amp NEB RQID [facility] Last Admin: 06/08/19 08:30 Dose: 1 amp Chlorhexidine Gluconate (Hibiclens For Decolonization -) 1 applic TP HS [facility] Last Admin: 06/07/19 21:47 Dose: 1 applic Clopidogrel Bisulfate (Plavix -) 75 mg PO DAILY [facility] Last Admin: 06/07/19 09:22 Dose: 75 mg Heparin Sodium (Porcine) (Heparin -) 5,000 unit SQ TID [facility] Last Admin: 06/08/19 06:13 Dose: 5,000 unit Azithromycin (Zithromax 500mg Ivpb (Pre-Docked)) 500 mg in 250 mls @ 250 mls/ hr IVPB DAILY [facility] Last Admin: 06/07/19 09:22 Dose: 250 mls/hr Amino Acids (Clinimix -) 1,000 mls @ 84 mls/hr IV Q12H [facility] Last Admin: 06/08/19 00:53 Dose: 84 mls/hr Methylprednisolone Sodium Succinate (Solu-Medrol -) 60 mg IVPUSH Q6H-IV [facility] Morphine Sulfate (Morphine Sulfate) 2 mg IVPUSH Q4H PRN PRN Reason: PAIN LEVEL 6-10 Last Admin: 06/08/19 09:55 Dose: 2 mg Mupirocin (Bactroban Ointment (For Decolonization) -) 1 applic NS BID [facility] Stop: 06/10/19 09:59 Last Admin: 06/07/19 21:47 Dose: 1 applic - Objective Vital Signs: Vital Signs Temperature 98.3 F 06/08/19 02:00 Pulse Rate 90 06/08/19 08:00 Respiratory Rate 18 06/08/19 08:00 Blood Pressure 150/102 H 06/08/19 08:00 O2 Sat by Pulse Oximetry (%) 100 06/08/19 09:00 Constitutional: Yes: Anxious Eyes: Yes: WNL HENT: Yes: WNL Neck: Yes: WNL Cardiovascular: Yes: Tachycardia Respiratory: Yes: On Venti-Mask Gastrointestinal: Yes: Normal Bowel Sounds ...Rectal Exam: Yes: WNL Genitourinary: Yes: WNL Musculoskeletal: Yes: Muscle Weakness Edema: LLE: Trace, RLE: Trace Neurological: Yes: Alert Labs: CBC, BMP 06/08/19 06:58 06/08/19 06:58 Assessment/Plan Continue same trt
[2019-06-08] MEDS: CLOPIDOGREL BISULFATE 75 MG TABLET (FP) PO SCH (10:22)
[2019-06-08] MEDS: AZITHROMYCIN IVPB 500 MG/250 ML BAG IVPB SCH (10:25)
[2019-06-08] MEDS: MUPIROCIN 2% TOPICAL OINTMENT FOR DECOLONIZATION NS SCH ×2 (10:25→22:06)
--- NOTE | 2019-06-08 11:50 | PN ---
Teaching Attending Note Name of Resident: Kay Montejo ATTENDING PHYSICIAN STATEMENT I saw and evaluated the patient. I reviewed the resident's note and discussed the case with the resident. I agree with the resident's findings and plan as documented. SUBJECTIVE: Pt seen and examined in the ICU. Has been dependent on BiPAP but breathing slightly improved today. Able to speak longer sentences. OBJECTIVE: Vital Signs Period Temp Pulse Resp BP Sys/Ellison Pulse Ox Last 24 Hr 97.8 F-98.3 F 74-116 14-22 110-150/68-102 95-100 Intake & Output 06/05/19 06/06/19 06/07/19 06/08/19 23:59 23:59 23:59 23:59 Intake Total 2214 1058 1426 581 Output Total 2525 1025 2036 200 Balance -311 33 -610 381 Weight 58.542 kg 60.781 kg 58.2 kg 59.562 kg Gen: less tachypneic but still with accessory muscle use Heart: RRR Lung: distant breath sounds Abd: soft, nontender Ext: no edema CBC, BMP 06/08/19 06:58 06/08/19 06:58 Active Medications Albuterol Sulfate (Ventolin 0.083% Nebulizer Soln -) 1 amp NEB RQ4H PRN PRN Reason: Dyspnea Last Admin: 06/06/19 04:20 Dose: 1 amp Albuterol/Ipratropium (Duoneb -) 1 amp NEB RQID [facility] Last Admin: 06/08/19 08:30 Dose: 1 amp Chlorhexidine Gluconate (Hibiclens For Decolonization -) 1 applic TP HS [facility] Last Admin: 06/07/19 21:47 Dose: 1 applic Clopidogrel Bisulfate (Plavix -) 75 mg PO DAILY [facility] Last Admin: 06/08/19 10:22 Dose: 75 mg Heparin Sodium (Porcine) (Heparin -) 5,000 unit SQ TID [facility] Last Admin: 06/08/19 06:13 Dose: 5,000 unit Amino Acids (Clinimix -) 1,000 mls @ 84 mls/hr IV Q12H [facility] Last Admin: 06/08/19 00:53 Dose: 84 mls/hr Methylprednisolone Sodium Succinate (Solu-Medrol -) 60 mg IVPUSH Q6H-IV [facility] Last Admin: 06/08/19 10:21 Dose: 60 mg Morphine Sulfate (Morphine Sulfate) 2 mg IVPUSH Q4H PRN PRN Reason: PAIN LEVEL 6-10 Last Admin: 06/08/19 09:55 Dose: 2 mg Mupirocin (Bactroban Ointment (For Decolonization) -) 1 applic NS BID [facility] Stop: 06/10/19 09:59 Last Admin: 06/08/19 10:25 Dose: 1 applic ASSESSMENT AND PLAN: Acute on Chronic Hypoxic and Hypercapneic Respiratory Failure Acute COPD Exacerbation Emphysema CAD HTN DM Hyperlipidemia Rheumatoid Arthritis h/o CVA Prostate Ca Anemia - continue BiPAP - can attempt ventimask - increase medrol - inhaled bronchodilators standing and PRN - lasix as needed - monitor urine output, creatinine - O2 to keep Spo2 88-92% - azithromycin - continue ICU monitoring for tenuous respiratory status critical care time spent in reviewing chart, evaluating patient and formulating plan 35 min
[2019-06-08] MEDS ORDERED: MULTIVIT INJECTION ADULT 10 ML in AMINO ACIDS 4.25%/D5W 1,000 ML IV SCH (12:57)
[2019-06-08] MEDS: MULTIVIT INJ. ADULT COMBO WITH VIT K 1 COMBO 10 ML VIAL IV SCH (15:07)
[2019-06-08] MEDS: CHLORHEXIDINE GLUCONATE 4% CLEANSER FOR DECOLONIZATION TP SCH (22:06)
[2019-06-09] MEDS: AMINO ACIDS 4.25%/D5W 1,000 ML IV SCH ×2 (01:15→08:00)
[2019-06-09] MEDS ORDERED: predniSONE 20 MG TABLET (UD) PO ONE (03:57)
[2019-06-09] MEDS ORDERED: PREDNISONE PO ONE (05:00)
[2019-06-09] MEDS: methylPREDNISolone NA SUCC 40 MG/1 ML VIAL IVPUSH SCH ×4 (05:03→23:24)
[2019-06-09] MEDS ORDERED: predniSONE 20 MG TABLET (UD) ONE (05:18)
[2019-06-09] MEDS ORDERED: predniSONE 10 MG TABLET (UD) ONE (05:19)
[2019-06-09] MEDS: HEPARIN NA (PORCINE) 5,000 UNITS/ML 1ML VIAL SQ SCH ×3 (06:19→23:24)
[2019-06-09 06:45] LABS: HEMATOCRIT 39.9 % (35.4-49); HEMOGLOBIN 13.5 GM/dL (11.7-16.9); MCH 30.6 pg (25.7-33.7); MCHC 33.8 g/dl (32.0-35.9); MEAN CELL VOLUME 90.4 fl (80-96); MEAN PLT VOLUME 7.7 fl (7.5-11.1); PLATELET COUNT 326 K/MM3 (134-434); RBC 4.41 M/mm3 (4.00-5.60); RDW 15.3 % (11.9-15.9); WHITE BLOOD COUNT 9.1 K/mm3 (4.0-10.0)
[2019-06-09 07:25] LABS: BILIRUBIN,TOTAL 0.9 mg/dL (0.2-1); BLOOD UREA NITROGEN 27.1 mg/dL (7-18); CALCIUM 9.5 mg/dL (8.5-10.1); CREATININE 0.8 mg/dL (0.55-1.3); MAGNESIUM 2.7 mg/dL (1.8-2.4); PHOSPHOROUS 3.5 mg/dL (2.5-4.9); POTASSIUM 4.6 mmol/L (3.5-5.1); TOT PROT 6.5 g/dl (6.4-8.2)
[2019-06-09] MEDS: ALBUTEROL SO4 2.5/IPRATROPIUM 0.5 INH SOL 3 ML VIAL.NEB. NEB SCH ×4 (08:15→20:48)
--- NOTE | 2019-06-09 09:52 | PN ---
Teaching Attending Note Name of Resident: Kay Montejo ATTENDING PHYSICIAN STATEMENT I saw and evaluated the patient. I reviewed the resident's note and discussed the case with the resident. I agree with the resident's findings and plan as documented. SUBJECTIVE: Patient seen and examined in the ICU. Awake and alert on NIPPV support. Reports feeling a little better today. Able to speak longer sentences. Still tachypneic at rest OBJECTIVE: Intake & Output 06/06/19 06/07/19 06/08/19 06/09/19 23:59 23:59 23:59 23:59 Intake Total 1058 1426 2171 336 Output Total 1025 2036 1270 800 Balance 33 610 901 -464 Weight 134 lb 128 lb 4.944 oz 131 lb 5 oz 130 lb Last Vital Signs Temp Pulse Resp BP Pulse Ox 98 F 89 18 140/78 99 06/09/19 06:00 06/09/19 06:00 06/09/19 06:00 06/09/19 06:00 06/09/19 08:15 Active Medications Albuterol Sulfate (Ventolin 0.083% Nebulizer Soln -) 1 amp NEB RQ4H PRN PRN Reason: Dyspnea Last Admin: 06/06/19 04:20 Dose: 1 amp Albuterol/Ipratropium (Duoneb -) 1 amp NEB RQID [facility] Last Admin: 06/09/19 08:15 Dose: 1 amp Chlorhexidine Gluconate (Hibiclens For Decolonization -) 1 applic TP HS [facility] Last Admin: 06/08/19 22:06 Dose: 1 applic Clonazepam (Klonopin -) 0.5 mg PO BID PRN PRN Reason: ANXIETY Clopidogrel Bisulfate (Plavix -) 75 mg PO DAILY [facility] Last Admin: 06/08/19 10:22 Dose: 75 mg Heparin Sodium (Porcine) (Heparin -) 5,000 unit SQ TID [facility] Last Admin: 06/09/19 06:19 Dose: 5,000 unit Amino Acids (Clinimix -) 1,000 mls @ 84 mls/hr IV Q12H [facility] Last Admin: 06/09/19 01:15 Dose: Not Given Methylprednisolone Sodium Succinate (Solu-Medrol -) 60 mg IVPUSH Q6H-IV [facility] Last Admin: 06/09/19 05:03 Dose: Not Given Morphine Sulfate (Morphine Sulfate) 2 mg IVPUSH Q4H PRN PRN Reason: PAIN LEVEL 6-10 Last Admin: 06/08/19 16:33 Dose: 2 mg Multivitamins/Minerals (Infuvite Adult -) 10 ml IV DAILY [facility] Last Admin: 06/08/19 15:07 Dose: 10 ml Mupirocin (Bactroban Ointment (For Decolonization) -) 1 applic NS BID [facility] Stop: 06/10/19 09:59 Last Admin: 06/08/19 22:06 Dose: 1 applic Gen: Awake and responsive on NIPPV support, less tachypneic but still with accessory muscle use Heart: RRR Lung: distant breath sounds Abd: soft, nontender Ext: no edema Laboratory Results - last 24 hr 06/08/19 06/09/19 06/09/19 11:18 06:20 06:20 WBC 9.1 RBC 4.41 Hgb 13.5 Hct 39.9 MCV 90.4 MCH 30.6 MCHC 33.8 RDW 15.3 Plt Count 326 MPV 7.7 Sodium 138 Potassium 4.6 Chloride 95 L Carbon Dioxide 39 H Anion Gap 4 L BUN 27.1 H Creatinine 0.8 Est GFR (CKD-EPI)AfAm 110.96 Est GFR (CKD-EPI)NonAf 95.74 Random Glucose 97 Calcium 9.5 Phosphorus 3.5 Magnesium 2.7 H Total Bilirubin 0.9 AST 13 L ALT 25 Alkaline Phosphatase 73 Total Protein 6.5 Albumin 3.0 L HIV 1&2 Ag/Ab, 4th Gen Non reactive ASSESSMENT AND PLAN: Acute on Chronic Hypoxic and Hypercapneic Respiratory Failure Acute COPD Exacerbation Emphysema CAD HTN DM Hyperlipidemia Rheumatoid Arthritis h/o CVA Prostate Ca Anemia - continue NIPPV support - can attempt ventimask as tolerated - Medrol at current dose - inhaled bronchodilators standing and PRN - lasix as needed - monitor urine output, creatinine - O2 to keep Spo2 88-92% - azithromycin - continue ICU monitoring for tenuous respiratory status Dr Reynolds
--- NOTE | 2019-06-09 10:01 | PN ---
Progress Note, Physician History of Present Illness: CoPD exaceebation,respiratory failure - Current Medication List Current Medications: Active Medications Albuterol Sulfate (Ventolin 0.083% Nebulizer Soln -) 1 amp NEB RQ4H PRN PRN Reason: Dyspnea Last Admin: 06/06/19 04:20 Dose: 1 amp Albuterol/Ipratropium (Duoneb -) 1 amp NEB RQID [facility] Last Admin: 06/09/19 08:15 Dose: 1 amp Chlorhexidine Gluconate (Hibiclens For Decolonization -) 1 applic TP HS [facility] Last Admin: 06/08/19 22:06 Dose: 1 applic Clonazepam (Klonopin -) 0.5 mg PO BID PRN PRN Reason: ANXIETY Clopidogrel Bisulfate (Plavix -) 75 mg PO DAILY [facility] Last Admin: 06/08/19 10:22 Dose: 75 mg Heparin Sodium (Porcine) (Heparin -) 5,000 unit SQ TID [facility] Last Admin: 06/09/19 06:19 Dose: 5,000 unit Amino Acids (Clinimix -) 1,000 mls @ 84 mls/hr IV Q12H [facility] Last Admin: 06/09/19 01:15 Dose: Not Given Methylprednisolone Sodium Succinate (Solu-Medrol -) 60 mg IVPUSH Q6H-IV [facility] Last Admin: 06/09/19 05:03 Dose: Not Given Morphine Sulfate (Morphine Sulfate) 2 mg IVPUSH Q4H PRN PRN Reason: PAIN LEVEL 6-10 Last Admin: 06/08/19 16:33 Dose: 2 mg Multivitamins/Minerals (Infuvite Adult -) 10 ml IV DAILY [facility] Last Admin: 06/08/19 15:07 Dose: 10 ml Mupirocin (Bactroban Ointment (For Decolonization) -) 1 applic NS BID [facility] Stop: 06/10/19 09:59 Last Admin: 06/08/19 22:06 Dose: 1 applic - Objective Vital Signs: Vital Signs Temperature 98 F 06/09/19 06:00 Pulse Rate 89 06/09/19 06:00 Respiratory Rate 18 06/09/19 06:00 Blood Pressure 140/78 06/09/19 06:00 O2 Sat by Pulse Oximetry (%) 99 06/09/19 08:15 Constitutional: Yes: Anxious Eyes: Yes: WNL HENT: Yes: WNL Neck: Yes: WNL Cardiovascular: Yes: Tachycardia Respiratory: Yes: On BiPap, SOB Gastrointestinal: Yes: WNL ...Rectal Exam: Yes: WNL Genitourinary: Yes: WNL Musculoskeletal: Yes: Muscle Weakness Edema: LLE: Trace, RLE: Trace Neurological: Yes: Alert Labs: CBC, BMP 06/09/19 06:20 06/09/19 06:20 Assessment/Plan Continue ICU care
[2019-06-09] MEDS ORDERED: PT OWN MED DRAWER 7, Y5N ONE (10:13)
[2019-06-09] MEDS: MUPIROCIN 2% TOPICAL OINTMENT FOR DECOLONIZATION NS SCH ×2 (10:18→23:24)
[2019-06-09] MEDS: CLOPIDOGREL BISULFATE 75 MG TABLET (FP) PO SCH (10:19)
[2019-06-09] MEDS: clonazePAM 0.5 MG TABLET PO PRN (10:19)
[2019-06-09] MEDS: MULTIVIT INJ. ADULT COMBO WITH VIT K 1 COMBO 10 ML VIAL IV SCH ×2 (10:21→13:00)
--- NOTE | 2019-06-09 10:44 | PN ---
Physical Exam: SUBJECTIVE: Patient seen and examined. Appears to be breathing more comfortably today. Complains of anxiety, is on Clonazepam at home. Patient was able to tolerate venti mask yesterday for a short period of time. Will continue to trial venti mask today. OBJECTIVE: Vital Signs Period Temp Pulse Resp BP Sys/Ellison Pulse Ox Last 24 Hr 97.6 F-98.3 F 88-118 13-34 119-177/69-101 98-100 GENERAL: The patient is awake, alert, and fully oriented, in no acute distress HEAD: Normal with no signs of trauma. EYES: EOMI, no scleral icterus ENT: on BiPAP, dry mucous membranes NECK: trachea midline, supple LUNGS: coarse breath sounds bilaterally, no accessory muscle use, no wheezing HEART: RRR, no murmur ABDOMEN: Soft, nontender, nondistended, normoactive bowel sounds, no guarding, no rebound EXTREMITIES: 2+ pulses, warm, no edema NEUROLOGICAL: Normal speech, gait not observed. PSYCH: anxious mood SKIN: Warm, dry Laboratory Results - last 24 hr 06/08/19 06/09/19 06/09/19 11:18 06:20 06:20 WBC 9.1 RBC 4.41 Hgb 13.5 Hct 39.9 MCV 90.4 MCH 30.6 MCHC 33.8 RDW 15.3 Plt Count 326 MPV 7.7 Sodium 138 Potassium 4.6 Chloride 95 L Carbon Dioxide 39 H Anion Gap 4 L BUN 27.1 H Creatinine 0.8 Est GFR (CKD-EPI)AfAm 110.96 Est GFR (CKD-EPI)NonAf 95.74 Random Glucose 97 Calcium 9.5 Phosphorus 3.5 Magnesium 2.7 H Total Bilirubin 0.9 AST 13 L ALT 25 Alkaline Phosphatase 73 Total Protein 6.5 Albumin 3.0 L HIV 1&2 Ag/Ab, 4th Gen Non reactive Active Medications Generic Name Dose Route Start Last Admin Trade Name Freq PRN Reason Stop Dose Admin Albuterol Sulfate 1 amp 06/05/19 15:40 06/06/19 04:20 Ventolin 0.083% Nebulizer Soln - NEB 1 amp RQ4H PRN Administration Dyspnea Albuterol/Ipratropium 1 amp 06/05/19 08:00 06/09/19 08:15 Duoneb - NEB 1 amp RQID [facility] Administration Chlorhexidine Gluconate 1 applic 06/05/19 22:00 06/08/19 22:06 Hibiclens For Decolonization - TP 1 applic HS [facility] Administration Clonazepam 0.5 mg 06/09/19 08:28 06/09/19 10:19 Klonopin - PO 0.5 mg BID PRN Administration ANXIETY Clopidogrel Bisulfate 75 mg 06/05/19 11:45 06/09/19 10:19 Plavix - PO 75 mg DAILY [facility] Administration Heparin Sodium (Porcine) 5,000 unit 06/07/19 14:00 06/09/19 06:19 Heparin - SQ 5,000 unit TID [facility] Administration Amino Acids 1,000 mls @ 84 mls/hr 06/08/19 13:15 06/09/19 01:15 Clinimix - IV Not Given Q12H [facility] Methylprednisolone Sodium Succinate 60 mg 06/08/19 10:00 06/09/19 08:55 Solu-Medrol - IVPUSH 60 mg Q6H-IV [facility] Administration Morphine Sulfate 2 mg 06/07/19 11:05 06/08/19 16:33 Morphine Sulfate IVPUSH 2 mg Q4H PRN Administration PAIN LEVEL 6-10 Multivitamins/Minerals 10 ml 06/08/19 13:15 06/08/19 15:07 Infuvite Adult - IV 10 ml DAILY [facility] Administration Mupirocin 1 applic 06/05/19 10:00 06/09/19 10:18 Bactroban Ointment (For Decolonization) - NS 06/10/19 09:59 1 applic BID [facility] Administration ASSESSMENT/PLAN: 64 y/o/m with PMH of [place], HLD, DM, COPD, CAD, CHF, RA, CVA and prostate CA. Presented to the ER from home on 06/04 with complaints of gradually worsening SOB and chest pain over the past 24 hours. He was lethargic on presentation and subsequently intubated. Extubated on 06/05 #COUNTER HAND - Extubated on 06/05 - Head CT - no acute pathology - On Clonazepam at home, started on home dose for anxiety #Respiratory - Acute on chronic respiratory failure with hypoxia and hypercapnia requiring intubation on 06/04, extubated on 06/05 - Currently on BiPAP, trial on Venti Mask and continue to wean as tolerated - CXR shows improvement at bases. - Given 40mg Lasix x1 with good response - Emphysematous changes seen on chest CT 06/04 - Duonebs, Solu-medrol 60mg IV Q6hr #CVS - Hx of HTN: Can use Hydralazine for BP control, avoid Beta Blockers due to COPD exacerbation, resume home meds when appropriate - ECHO showing normal EF, elevated RV systolic pressure - BNP elevated to 2675, higher than prior admissions - Clopidogrel 75mg (home med) - POC US in ER: decreased EF with LV lateral wall motion abnormality, no b lines , IVC 100% collapsible, no pericardial effusion, no pleural effusion #ID - WBC 9.1, afebrile - Lactic acid normalized - Blood, urine cx without growth to date - Azithromycin 500mg started 06/05 #GI - CTAP - Mild hepatic steatosis with subtle hepatic surface nodularity is concerning for early cirrhosis. #Renal - Cr 0.8 #Prophylaxis - Heparin #FEN - Clinimix with multivitamin additive @84mls/hr - dysphagia puree diet started #Dispo - Continue ICU monitoring Visit type - Emergency Visit Emergency Visit: Yes ED Registration Date: 06/04/19 Care time: The patient presented to the Emergency Department on the above date and was hospitalized for further evaluation of their emergent condition. - New Patient This patient is new to me today: No - Critical Care Critical Care patient: Yes Total Critical Care Time (in minutes): 36 Critical Care Statement: The care of this patient involved high complexity decision making to prevent further life threatening deterioration of the patient 's condition and/or to evaluate & treat vital organ system(s) failure or risk of failure. ATTENDING PHYSICIAN STATEMENT I saw and evaluated the patient. I reviewed the resident's note and discussed the case with the resident. I agree with the resident's findings and plan as documented. SUBJECTIVE: OBJECTIVE: ASSESSMENT AND PLAN:
--- NOTE | 2019-06-09 14:49 | PN ---
Progress Note, Physician Chief Complaint: Pt A&Ox3; dyspnea at all times; on Bipap. No chest pain. Able to have converation, but has to stop in mid-sentence to catch his breath. History of Present Illness: 63 year old man with past medical history significant for CAD s/p CABG, end- stage COPD-- on home O2, awaiting lung transplant; HIV, hypertension, hyperlipidemia, diastolic CHF, rheumatoid arthritis on methotrexate, who presents to the emergency department with weakness, lethargy, difficulty breathing. History limited; progressively worsening ability to breathe over the last few days. - Current Medication List Current Medications: Active Medications Albuterol Sulfate (Ventolin 0.083% Nebulizer Soln -) 1 amp NEB RQ4H PRN PRN Reason: Dyspnea Last Admin: 06/06/19 04:20 Dose: 1 amp Albuterol/Ipratropium (Duoneb -) 1 amp NEB RQID [facility] Last Admin: 06/09/19 11:46 Dose: 1 amp Chlorhexidine Gluconate (Hibiclens For Decolonization -) 1 applic TP HS [facility] Last Admin: 06/08/19 22:06 Dose: 1 applic Clonazepam (Klonopin -) 0.5 mg PO BID PRN PRN Reason: ANXIETY Last Admin: 06/09/19 10:19 Dose: 0.5 mg Clopidogrel Bisulfate (Plavix -) 75 mg PO DAILY [facility] [place] Last Admin: 06/09/19 10:19 Dose: 75 mg Heparin Sodium (Porcine) (Heparin -) 5,000 unit SQ TID [facility] Last Admin: 06/09/19 06:19 Dose: 5,000 unit Amino Acids (Clinimix -) 1,000 mls @ 84 mls/hr IV Q12H [facility] [place] Last Admin: 06/09/19 01:15 Dose: Not Given Methylprednisolone Sodium Succinate (Solu-Medrol -) 60 mg IVPUSH Q6H-IV [facility] [place] Last Admin: 06/09/19 08:55 Dose: 60 mg Morphine Sulfate (Morphine Sulfate) 2 mg IVPUSH Q4H PRN PRN Reason: PAIN LEVEL 6-10 Last Admin: 06/08/19 16:33 Dose: 2 mg Multivitamins/Minerals (Infuvite Adult -) 10 ml IV DAILY [facility] [place] Last Admin: 06/08/19 15:07 Dose: 10 ml Mupirocin (Bactroban Ointment (For Decolonization) -) 1 applic NS BID [facility] Stop: 06/10/19 09:59 Last Admin: 06/09/19 10:18 Dose: 1 applic - Objective Vital Signs: Vital Signs Temperature 97.6 F 06/09/19 10:00 Pulse Rate 119 H 06/09/19 14:00 Respiratory Rate 22 H 06/09/19 14:00 Blood Pressure 137/90 06/09/19 14:00 O2 Sat by Pulse Oximetry (%) 98 06/09/19 10:00 Constitutional: Yes: Mild Distress, Thin Eyes: Yes: WNL HENT: Yes: WNL Neck: Yes: WNL Cardiovascular: Yes: Tachycardia, S1, S2, S4 Respiratory: Yes: Diminished, On BiPap, SOB, Tachypnea Gastrointestinal: Yes: Soft ...Rectal Exam: Yes: Deferred Genitourinary: No: Anuria Breast(s): Yes: WNL Musculoskeletal: Yes: Muscle Weakness Extremities: Yes: Cool Edema: No Peripheral Pulses WNL: Yes Integumentary: Yes: WNL Neurological: Yes: Alert, Oriented, Weakness Psychiatric: Yes: Alert, Oriented Labs: CBC, BMP 06/09/19 06:20 06/09/19 06:20 - ....Imaging Chest X-ray: Image Reviewed EKG: Image Reviewed Other: Image Reviewed Problem List - Problems (1) Acute on chronic respiratory failure with hypoxia and hypercapnia Assessment/Plan: On O2, steroids, and bronchodilators per sustainability coach. Code(s): J96.21 - ACUTE AND CHRONIC RESPIRATORY FAILURE WITH HYPOXIA; J96.22 - ACUTE AND CHRONIC RESPIRATORY FAILURE WITH HYPERCAPNIA (2) Anxiety Code(s): F41.9 - ANXIETY DISORDER, UNSPECIFIED (3) CAD (coronary artery disease) Assessment/Plan: On clopidogrel. F/u lipid profile, and start statin as needed. Code(s): I25.10 - ATHSCL HEART DISEASE OF [place] CORONARY ARTERY W/O ANG PCTRS Qualifiers: Coronary Disease-Associated Artery/Lesion type: [place] artery [place] vs. transplanted heart: [place] heart Associated angina: without angina Qualified Code(s): I25.10 - Atherosclerotic heart disease of [place] coronary artery without angina pectoris (4) COPD exacerbation Code(s): J44.1 - CHRONIC OBSTRUCTIVE PULMONARY DISEASE W (ACUTE) EXACERBATION (5) Cough Code(s): R05 - COUGH (6) Diastolic CHF Code(s): I50.30 - UNSPECIFIED DIASTOLIC (CONGESTIVE) HEART FAILURE Qualifiers: Heart failure chronicity: unspecified Qualified Code(s): I50.30 - Unspecified diastolic (congestive) heart failure (7) HTN (hypertension) Code(s): I10 - ESSENTIAL (PRIMARY) HYPERTENSION Qualifiers: Hypertension type: essential hypertension Qualified Code(s): I10 - Essential (primary) hypertension (8) History of coronary artery bypass graft Code(s): Z95.1 - PRESENCE OF AORTOCORONARY BYPASS GRAFT (9) Hypercholesterolemia Assessment/Plan: f/u lipid profile; start statin if needed. Code(s): E78.0 - PURE HYPERCHOLESTEROLEMIA * DO NOT USE * (10) PSVT (paroxysmal supraventricular tachycardia) Assessment/Plan: by history. Code(s): I47.1 - SUPRAVENTRICULAR TACHYCARDIA (11) Sinus tachycardia Code(s): R00.0 - TACHYCARDIA, UNSPECIFIED (12) Acute on chronic diastolic (congestive) heart failure Code(s): I50.33 - ACUTE ON CHRONIC DIASTOLIC (CONGESTIVE) HEART FAILURE (13) Elevated brain natriuretic peptide (BNP) level Assessment/Plan: Major contributer likely from pulmonary HTN with COPD exacerbation; pt also with CAD and diastolic CHF. Code(s): R79.89 - OTHER SPECIFIED ABNORMAL FINDINGS OF BLOOD CHEMISTRY (14) Anxiety and depression Code(s): F41.9 - ANXIETY DISORDER, UNSPECIFIED; F32.9 - MAJOR DEPRESSIVE DISORDER, SINGLE EPISODE, UNSPECIFIED Assessment/Plan CCU time spent: 40 minutes.
--- NOTE | 2019-06-09 21:16 | PN ---
Progress Note, Physician Chief Complaint: Pt A&Ox3; markedly dyspneic. History of Present Illness: 63 year old man with past medical history significant for CAD s/p CABG, end- stage COPD-- on home O2, awaiting lung transplant; HIV, hypertension, hyperlipidemia, diastolic CHF, rheumatoid arthritis on methotrexate, who presents to the emergency department with weakness, lethargy, difficulty breathing. History limited; progressively worsening ability to breathe over the last few days. - Current Medication List Current Medications: Active Medications Albuterol Sulfate (Ventolin 0.083% Nebulizer Soln -) 1 amp NEB RQ4H PRN PRN Reason: Dyspnea Last Admin: 06/06/19 04:20 Dose: 1 amp Albuterol/Ipratropium (Duoneb -) 1 amp NEB RQID [facility] Last Admin: 06/09/19 20:48 Dose: 1 amp Chlorhexidine Gluconate (Hibiclens For Decolonization -) 1 applic TP HS [facility] Last Admin: 06/08/19 22:06 Dose: 1 applic Clonazepam (Klonopin -) 0.5 mg PO BID PRN PRN Reason: ANXIETY Last Admin: 06/09/19 10:19 Dose: 0.5 mg Clopidogrel Bisulfate (Plavix -) 75 mg PO DAILY [facility] Last Admin: 06/09/19 10:19 Dose: 75 mg Heparin Sodium (Porcine) (Heparin -) 5,000 unit SQ TID [facility] Last Admin: 06/09/19 15:56 Dose: 5,000 unit Amino Acids (Clinimix -) 1,000 mls @ 84 mls/hr IV Q12H [facility] Last Admin: 06/09/19 08:00 Dose: 84 mls/hr Methylprednisolone Sodium Succinate (Solu-Medrol -) 60 mg IVPUSH Q6H-IV [facility] Last Admin: 06/09/19 15:57 Dose: 60 mg Morphine Sulfate (Morphine Sulfate) 2 mg IVPUSH Q4H PRN PRN Reason: PAIN LEVEL 6-10 Last Admin: 06/08/19 16:33 Dose: 2 mg Multivitamins/Minerals (Infuvite Adult -) 10 ml IV DAILY [facility] Last Admin: 06/09/19 13:00 Dose: Not Given Mupirocin (Bactroban Ointment (For Decolonization) -) 1 applic NS BID [facility] Stop: 06/10/19 09:59 Last Admin: 06/09/19 10:18 Dose: 1 applic - Objective Vital Signs: Vital Signs Temperature 97.2 F L 06/09/19 17:40 Pulse Rate 117 H 06/09/19 18:38 Respiratory Rate 24 H 06/09/19 18:38 Blood Pressure 137/83 06/09/19 18:38 O2 Sat by Pulse Oximetry (%) 95 06/09/19 20:47 Constitutional: Yes: Anxious Eyes: Yes: WNL HENT: Yes: WNL Neck: Yes: WNL Cardiovascular: Yes: Tachycardia, S1, S2, S4 Respiratory: Yes: Diminished, On BiPap Gastrointestinal: Yes: Soft ...Rectal Exam: Yes: Deferred Genitourinary: No: Anuria Breast(s): Yes: WNL Musculoskeletal: Yes: Muscle Weakness Extremities: Yes: Cool Edema: No Peripheral Pulses WNL: Yes Integumentary: Yes: WNL Neurological: Yes: Alert, Oriented, Weakness Psychiatric: Yes: Alert, Oriented, Other (anxiety/depression) Labs: CBC, BMP 06/09/19 06:20 06/09/19 06:20 Abnormal Lab Results 06/09/19 06:20 Chloride 95 L Carbon Dioxide 39 H Anion Gap 4 L BUN 27.1 H Magnesium 2.7 H AST 13 L Albumin 3.0 L - ....Imaging Chest X-ray: Image Reviewed EKG: Image Reviewed Other: Image Reviewed (telemetry: sinus tachycardia) Problem List - Problems (1) Acute on chronic respiratory failure with hypoxia and hypercapnia Assessment/Plan: On O2, steroids, and bronchodilators per story teller. Code(s): J96.21 - ACUTE AND CHRONIC RESPIRATORY FAILURE WITH HYPOXIA; J96.22 - ACUTE AND CHRONIC RESPIRATORY FAILURE WITH HYPERCAPNIA (2) CAD (coronary artery disease) Assessment/Plan: On clopidogrel. F/u lipid profile, and start statin as needed. Code(s): I25.10 - ATHSCL HEART DISEASE OF [place] CORONARY ARTERY W/O ANG PCTRS Qualifiers: Coronary Disease-Associated Artery/Lesion type: [place] artery [place] vs. transplanted heart: [place] heart Associated angina: without angina Qualified Code(s): I25.10 - Atherosclerotic heart disease of [place] coronary artery without angina pectoris (3) COPD exacerbation Assessment/Plan: see "...Respiratory Failure"). Code(s): J44.1 - CHRONIC OBSTRUCTIVE PULMONARY DISEASE W (ACUTE) EXACERBATION (4) Cough Code(s): R05 - COUGH (5) Diastolic CHF Code(s): I50.30 - UNSPECIFIED DIASTOLIC (CONGESTIVE) HEART FAILURE Qualifiers: Heart failure chronicity: unspecified Qualified Code(s): I50.30 - Unspecified diastolic (congestive) heart failure (6) HTN (hypertension) Code(s): I10 - ESSENTIAL (PRIMARY) HYPERTENSION Qualifiers: Hypertension type: essential hypertension Qualified Code(s): I10 - Essential (primary) hypertension (7) History of coronary artery bypass graft Code(s): Z95.1 - PRESENCE OF AORTOCORONARY BYPASS GRAFT (8) Hypercholesterolemia Assessment/Plan: f/u lipid profile; start statin if needed. Code(s): E78.0 - PURE HYPERCHOLESTEROLEMIA * DO NOT USE * (9) PSVT (paroxysmal supraventricular tachycardia) Assessment/Plan: by history. Code(s): I47.1 - SUPRAVENTRICULAR TACHYCARDIA (10) Sinus tachycardia Code(s): R00.0 - TACHYCARDIA, UNSPECIFIED (11) Acute on chronic diastolic (congestive) heart failure Code(s): I50.33 - ACUTE ON CHRONIC DIASTOLIC (CONGESTIVE) HEART FAILURE (12) Elevated brain natriuretic peptide (BNP) level Assessment/Plan: Major contributor likely from severe pulmonary HTN with COPD exacerbation; pt also with CAD and diastolic CHF. Code(s): R79.89 - OTHER SPECIFIED ABNORMAL FINDINGS OF BLOOD CHEMISTRY (13) Anxiety and depression Assessment/Plan: Pt is frustrated that he can no longer do even the most simple activities without becoming markedly short of breath; he says he sometimes feels he can no longer "go on". On Klonopin. Code(s): F41.9 - ANXIETY DISORDER, UNSPECIFIED; F32.9 - MAJOR DEPRESSIVE DISORDER, SINGLE EPISODE, UNSPECIFIED Assessment/Plan CCU time spent: 35 minutes.
[2019-06-09] MEDS: CHLORHEXIDINE GLUCONATE 4% CLEANSER FOR DECOLONIZATION TP SCH (23:24)
[2019-06-10] MEDS: AMINO ACIDS 4.25%/D5W 1,000 ML IV SCH ×2 (02:41→14:12)
[2019-06-10] MEDS: methylPREDNISolone NA SUCC 40 MG/1 ML VIAL IVPUSH SCH ×4 (03:52→21:09)
[2019-06-10] MEDS: HEPARIN NA (PORCINE) 5,000 UNITS/ML 1ML VIAL SQ SCH ×3 (05:54→21:10)
[2019-06-10 06:42] LABS: HEMOGLOBIN 13.2 GM/dL (11.7-16.9); MCH 30.1 pg (25.7-33.7); MEAN CELL VOLUME 91.3 fl (80-96); MEAN PLT VOLUME 7.8 fl (7.5-11.1); PLATELET COUNT 337 K/MM3 (134-434); RBC 4.39 M/mm3 (4.00-5.60); RDW 15.2 % (11.9-15.9); WHITE BLOOD COUNT 10.4 K/mm3 (4.0-10.0)
[2019-06-10 07:06] LABS: ALBUMIN 2.9 g/dl (3.4-5.0); BILIRUBIN,TOTAL 0.8 mg/dL (0.2-1); BLOOD UREA NITROGEN 28.4 mg/dL (7-18); CREATININE 0.7 mg/dL (0.55-1.3); MAGNESIUM 2.5 mg/dL (1.8-2.4); PHOSPHOROUS 3.3 mg/dL (2.5-4.9); TOT PROT 6.4 g/dl (6.4-8.2)
[2019-06-10] MEDS: ALBUTEROL SO4 2.5/IPRATROPIUM 0.5 INH SOL 3 ML VIAL.NEB. NEB SCH ×4 (08:07→20:57)
--- NOTE | 2019-06-10 08:47 | PN ---
Progress Note, Physician Chief Complaint: Patient is still complaint of shortness of breath on facemak saturating well History of Present Illness: 63 year old man with past medical history significant for CAD s/p CABG, end- stage COPD-- on home O2, awaiting lung transplant; HIV, hypertension, hyperlipidemia, diastolic CHF, rheumatoid arthritis on methotrexate, who presents to the emergency department with weakness, lethargy, difficulty breathing. - Current Medication List Current Medications: Active Medications Albuterol Sulfate (Ventolin 0.083% Nebulizer Soln -) 1 amp NEB RQ4H PRN PRN Reason: Dyspnea Last Admin: 06/06/19 04:20 Dose: 1 amp Albuterol/Ipratropium (Duoneb -) 1 amp NEB RQID [facility] Last Admin: 06/10/19 08:07 Dose: 1 amp Chlorhexidine Gluconate (Hibiclens For Decolonization -) 1 applic TP HS [facility] Last Admin: 06/09/19 23:24 Dose: 1 applic Clonazepam (Klonopin -) 0.5 mg PO BID PRN PRN Reason: ANXIETY Last Admin: 06/09/19 10:19 Dose: 0.5 mg Clopidogrel Bisulfate (Plavix -) 75 mg PO DAILY [facility] Last Admin: 06/09/19 10:19 Dose: 75 mg Heparin Sodium (Porcine) (Heparin -) 5,000 unit SQ TID [facility] Last Admin: 06/10/19 05:54 Dose: 5,000 unit Amino Acids (Clinimix -) 1,000 mls @ 84 mls/hr IV Q12H [facility] Last Admin: 06/10/19 02:41 Dose: 84 mls/hr Methylprednisolone Sodium Succinate (Solu-Medrol -) 60 mg IVPUSH Q6H-IV [facility] Last Admin: 06/10/19 03:52 Dose: 60 mg Morphine Sulfate (Morphine Sulfate) 2 mg IVPUSH Q4H PRN PRN Reason: PAIN LEVEL 6-10 Last Admin: 06/08/19 16:33 Dose: 2 mg Multivitamins/Minerals (Infuvite Adult -) 10 ml IV DAILY [facility] Last Admin: 06/09/19 13:00 Dose: Not Given Mupirocin (Bactroban Ointment (For Decolonization) -) 1 applic NS BID [facility] Stop: 06/10/19 09:59 Last Admin: 06/09/19 23:24 Dose: 1 applic - Objective Vital Signs: Vital Signs: Temperature 97.9 F 06/10/19 05:51 Pulse Rate 102 H 06/10/19 05:51 Respiratory Rate 20 06/10/19 05:51 Blood Pressure 131/87 06/10/19 05:51 O2 Sat by Pulse Oximetry (%) 98 06/10/19 08:06 General: Middle-aged man, sick looking in respiratory distress HEENT; mucous membranes moist, no anemia, no jaundice, PERRLA, no nystagmus Neck: No JVD, supple, no bruit, thyroid palpably normal, normal carotid pulsations. Chest: Bilateral diffuse wheezes with tachypnea CVS: S1-S2 regularno murmur/gallop/rub Abdomen: Nondistended, soft, bowel sounds present. 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 Problems reviewed: Yes Code(s): J96.21 - ACUTE AND CHRONIC RESPIRATORY FAILURE WITH HYPOXIA; J96.22 - ACUTE AND CHRONIC RESPIRATORY FAILURE WITH HYPERCAPNIA (2) Anxiety and depression Assessment/Plan: Continue home medication Problems reviewed: Yes Code(s): F41.9 - ANXIETY DISORDER, UNSPECIFIED; F32.9 - MAJOR DEPRESSIVE DISORDER, SINGLE EPISODE, UNSPECIFIED (3) History of coronary artery bypass graft Assessment/Plan: At present stable follow-up cardiology recommendation Problems reviewed: Yes Code(s): Z95.1 - PRESENCE OF AORTOCORONARY BYPASS GRAFT (4) Diastolic CHF Assessment/Plan: Follow cardiology recommendation Problems reviewed: Yes Code(s): I50.30 - UNSPECIFIED DIASTOLIC (CONGESTIVE) HEART FAILURE Qualifiers: Heart failure chronicity: unspecified Qualified Code(s): I50.30 - Unspecified diastolic (congestive) heart failure
[2019-06-10] MEDS: CLOPIDOGREL BISULFATE 75 MG TABLET (FP) PO SCH (09:43)
[2019-06-10] MEDS: MULTIVIT INJ. ADULT COMBO WITH VIT K 1 COMBO 10 ML VIAL IV SCH (10:23)
--- NOTE | 2019-06-10 15:02 | PN ---
Progress Note (short form) - Note Progress Note: PULM/CCM Patient seen and examined in the ICU. Awake and alert on SFM. Reports feeling a little better today. Remains tachypneic. Active Medications Albuterol Sulfate (Ventolin 0.083% Nebulizer Soln -) 1 amp NEB RQ4H PRN PRN Reason: Dyspnea Last Admin: 06/06/19 04:20 Dose: 1 amp Albuterol/Ipratropium (Duoneb -) 1 amp NEB RQID [facility] Last Admin: 06/10/19 16:32 Dose: 1 amp Chlorhexidine Gluconate (Hibiclens For Decolonization -) 1 applic TP HS [facility] Last Admin: 06/09/19 23:24 Dose: 1 applic Clonazepam (Klonopin -) 0.5 mg PO BID PRN PRN Reason: ANXIETY Last Admin: 06/09/19 10:19 Dose: 0.5 mg Clopidogrel Bisulfate (Plavix -) 75 mg PO DAILY [facility] Last Admin: 06/10/19 09:43 Dose: 75 mg Heparin Sodium (Porcine) (Heparin -) 5,000 unit SQ TID [facility] Last Admin: 06/10/19 14:11 Dose: 5,000 unit Amino Acids (Clinimix -) 1,000 mls @ 84 mls/hr IV Q12H [facility] Last Admin: 06/10/19 14:12 Dose: 84 mls/hr Methylprednisolone Sodium Succinate (Solu-Medrol -) 60 mg IVPUSH Q6H-IV [facility] Last Admin: 06/10/19 14:20 Dose: 60 mg Morphine Sulfate (Morphine Sulfate) 2 mg IVPUSH Q4H PRN PRN Reason: PAIN LEVEL 6-10 Last Admin: 06/08/19 16:33 Dose: 2 mg Multivitamins/Minerals (Infuvite Adult -) 10 ml IV DAILY [facility] Last Admin: 06/10/19 10:23 Dose: 10 ml Vital Signs Period Temp Pulse Resp BP Sys/Ellison Pulse Ox Last 24 Hr 97.2 F-97.9 F 92-119 20-26 119-142/80-90 95-100 Intake & Output 06/07/19 06/08/19 06/09/19 06/10/19 23:59 23:59 23:59 23:59 Intake Total 1426 2171 698 681 Output Total 2036 1270 1100 Balance -610 901 -402 681 Weight 58.2 kg 59.562 kg 58.967 kg 59.148 kg Gen: CA + O X3, remains tachypneic & w/ some accessory muscle use Heart: RRR Lung: distant breath sounds Abd: soft, nontender Ext: no edema CBC, BMP 06/10/19 05:41 06/10/19 05:41 Microbiology 06/04/19 20:30 Blood - Peripheral Venous Blood Culture - Final NO GROWTH AFTER 5 DAYS INCUBATION 06/04/19 20:30 Blood - Peripheral Venous Blood Culture - Final NO GROWTH AFTER 5 DAYS INCUBATION 06/05/19 00:00 Sputum - Endotrachea Suction/Ventilator Gram Stain - Final 06/05/19 00:00 Sputum - Endotrachea Suction/Ventilator Sputum Culture - Final NORMAL RESPIRATORY SULEMA 06/04/19 00:01 Urine - Urine - Catheterized Urine Culture - Final NO GROWTH OBTAINED CXR 06/09: Unchanged contour of the cardiomediastinal silhouette. Hyperaerated lungs. Increased vascular markings are noted in lower lung zones. No evidence of CHF. No pneumothorax, or large pleural effusion is seen. No evidence of a pulmonary infiltrates. No evidence of vascular congestive changes. ASSESSMENT AND PLAN: Acute on Chronic Hypoxic and Hypercapneic Respiratory Failure Acute COPD Exacerbation Emphysema CAD HTN DM Hyperlipidemia Rheumatoid Arthritis h/o CVA Prostate Ca Anemia - O2 to keep Spo2 88-92% - Nebs - Cont Nocturnal NIPPV support - Venti Mask by Day - Finish Abx - Cont Medrol - lasix as needed - monitor urine output, creatinine - Cont TPN - SQH - SCD - GI ppx - continue ICU monitoring for tenuous respiratory status [facility] ICU PULM/CCM [id number]
[2019-06-11] MEDS: CHLORHEXIDINE GLUCONATE 4% CLEANSER FOR DECOLONIZATION TP SCH ×2 (00:23→21:14)
[2019-06-11] MEDS: AMINO ACIDS 4.25%/D5W 1,000 ML IV SCH ×2 (01:58→14:06)
[2019-06-11] MEDS: methylPREDNISolone NA SUCC 40 MG/1 ML VIAL IVPUSH SCH ×2 (02:01→09:44)
[2019-06-11] MEDS: HEPARIN NA (PORCINE) 5,000 UNITS/ML 1ML VIAL SQ SCH ×3 (05:24→21:14)
[2019-06-11 06:34] LABS: HEMATOCRIT 40.4 % (35.4-49); HEMOGLOBIN 13.4 GM/dL (11.7-16.9); MCH 30.2 pg (25.7-33.7); MCHC 33.2 g/dl (32.0-35.9); MEAN CELL VOLUME 90.9 fl (80-96); MEAN PLT VOLUME 8.2 fl (7.5-11.1); PLATELET COUNT 305 K/MM3 (134-434); RBC 4.44 M/mm3 (4.00-5.60); RDW 15.2 % (11.9-15.9); WHITE BLOOD COUNT 11.3 K/mm3 (4.0-10.0)
[2019-06-11 06:57] LABS: BLOOD UREA NITROGEN 30.5 mg/dL (7-18); CREATININE 0.7 mg/dL (0.55-1.3); MAGNESIUM 2.7 mg/dL (1.8-2.4); PHOSPHOROUS 4.4 mg/dL (2.5-4.9)
[2019-06-11] MEDS: ALBUTEROL SO4 2.5/IPRATROPIUM 0.5 INH SOL 3 ML VIAL.NEB. NEB SCH ×4 (08:30→19:34)
[2019-06-11] MEDS ORDERED: PT OWN MED DRAWER 7, Y5N ONE ×2 (09:37→13:41)
--- NOTE | 2019-06-11 09:43 | PN ---
Progress Note (short form) - Note Progress Note: Seen and examined in the ICU Still w/ significant SOB but states he feels better than yesterday BiPAP overnight, on Venti-mask this AM FiO2: 35% afebrile. BP stable Current Medications Albuterol Sulfate (Ventolin 0.083% Nebulizer Soln -) 1 amp NEB RQ4H PRN PRN Reason: Dyspnea Last Admin: 06/06/19 04:20 Dose: 1 amp Albuterol/Ipratropium (Duoneb -) 1 amp NEB RQID [facility] Last Admin: 06/10/19 20:57 Dose: 1 amp Chlorhexidine Gluconate (Hibiclens For Decolonization -) 1 applic TP HS [facility] Last Admin: 06/11/19 00:23 Dose: 1 applic Clonazepam (Klonopin -) 0.5 mg PO BID PRN PRN Reason: ANXIETY Last Admin: 06/09/19 10:19 Dose: 0.5 mg Clopidogrel Bisulfate (Plavix -) 75 mg PO DAILY [facility] Last Admin: 06/10/19 09:43 Dose: 75 mg Heparin Sodium (Porcine) (Heparin -) 5,000 unit SQ TID [facility] Last Admin: 06/11/19 05:24 Dose: 5,000 unit Amino Acids (Clinimix -) 1,000 mls @ 84 mls/hr IV Q12H [facility] Last Admin: 06/11/19 01:58 Dose: 84 mls/hr Methylprednisolone Sodium Succinate (Solu-Medrol -) 60 mg IVPUSH Q6H-IV [facility] Last Admin: 06/11/19 02:01 Dose: 60 mg Morphine Sulfate (Morphine Sulfate) 2 mg IVPUSH Q4H PRN PRN Reason: PAIN LEVEL 6-10 Last Admin: 06/08/19 16:33 Dose: 2 mg Multivitamins/Minerals (Infuvite Adult -) 10 ml IV DAILY [facility] Last Admin: 06/10/19 10:23 Dose: 10 ml Vital Signs Period Temp Pulse Resp BP Sys/Ellison Pulse Ox Last 24 Hr 97.9 F-97.9 F 88-132 16-24 86-149/47-90 93-100 Intake & Output 06/08/19 06/09/19 06/10/19 06/11/19 23:59 23:59 23:59 23:59 Intake Total 2171 698 2009 681 Output Total 1270 1100 500 Balance 901 -402 2009 181 Weight 59.562 kg 58.967 kg 59.148 kg 56.608 kg Exam: General: awake and alert, depressed, mod WOB HEENT: PRRL, no JVD, anicteric sclera CV: RRR Pulm: very diminished w/ poor airmovement Abd: SNTND, +BS Ext: WWP, trace LE edema Neuro: AOx3, CN grossly intact CBC, BMP 06/11/19 05:55 06/11/19 05:55 Microbiology 06/04/19 20:30 Blood - Peripheral Venous Blood Culture - Final NO GROWTH AFTER 5 DAYS INCUBATION 06/04/19 20:30 Blood - Peripheral Venous Blood Culture - Final NO GROWTH AFTER 5 DAYS INCUBATION 06/05/19 00:00 Sputum - Endotrachea Suction/Ventilator Gram Stain - Final 06/05/19 00:00 Sputum - Endotrachea Suction/Ventilator Sputum Culture - Final NORMAL RESPIRATORY SULEMA 06/04/19 00:01 Urine - Urine - Catheterized Urine Culture - Final NO GROWTH OBTAINED ASSESSMENT AND PLAN: Acute on Chronic Hypoxic and Hypercapneic Respiratory Failure Acute COPD Exacerbation Emphysema CAD HTN DM Hyperlipidemia Rheumatoid Arthritis h/o CVA Prostate Ca Anemia - O2 to keep Spo2 88-92% - Nebs - Cont Nocturnal NIPPV support - Venti Mask by Day, will attempt HFNC for comfort - s/p Abx - change Medrol to prednisone 60mg with slow taper - lasix as needed - monitor urine output, creatinine - Cont TPN - SQH - SCD - GI ppx - continue ICU monitoring for tenuous respiratory status Bo[place] ACNP Pulm/CCM CCT: 35m
[2019-06-11] MEDS: CLOPIDOGREL BISULFATE 75 MG TABLET (FP) PO SCH (09:46)
[2019-06-11] MEDS: predniSONE 20 MG TABLET (UD) PO SCH (10:59)
[2019-06-11] MEDS: clonazePAM 0.5 MG TABLET PO PRN (11:03)
--- NOTE | 2019-06-11 12:22 | PN ---
Progress Note, Physician Chief Complaint: Patient is still complaint of shortness of breath on high flow saturating well History of Present Illness: 63 year old man with past medical history significant for CAD s/p CABG, end- stage COPD-- on home O2, awaiting lung transplant; HIV, hypertension, hyperlipidemia, diastolic CHF, rheumatoid arthritis on methotrexate, who presents to the emergency department with weakness, lethargy, difficulty breathing. - Current Medication List Current Medications: Active Medications Albuterol Sulfate (Ventolin 0.083% Nebulizer Soln -) 1 amp NEB RQ4H PRN PRN Reason: Dyspnea Last Admin: 06/06/19 04:20 Dose: 1 amp Albuterol/Ipratropium (Duoneb -) 1 amp NEB RQID [facility] Last Admin: 06/11/19 11:51 Dose: 1 amp Chlorhexidine Gluconate (Hibiclens For Decolonization -) 1 applic TP HS [facility] Last Admin: 06/11/19 00:23 Dose: 1 applic Clonazepam (Klonopin -) 0.5 mg PO BID PRN PRN Reason: ANXIETY Last Admin: 06/11/19 11:03 Dose: 0.5 mg Clopidogrel Bisulfate (Plavix -) 75 mg PO DAILY [facility] Last Admin: 06/11/19 09:46 Dose: 75 mg Heparin Sodium (Porcine) (Heparin -) 5,000 unit SQ TID [facility] Last Admin: 06/11/19 05:24 Dose: 5,000 unit Amino Acids (Clinimix -) 1,000 mls @ 84 mls/hr IV Q12H [facility] Last Admin: 06/11/19 01:58 Dose: 84 mls/hr Morphine Sulfate (Morphine Sulfate) 2 mg IVPUSH Q4H PRN PRN Reason: PAIN LEVEL 6-10 Last Admin: 06/08/19 16:33 Dose: 2 mg Multivitamins/Minerals (Infuvite Adult -) 10 ml IV DAILY [facility] Last Admin: 06/10/19 10:23 Dose: 10 ml Prednisone (Deltasone -) 60 mg PO DAILY [facility] Last Admin: 06/11/19 10:59 Dose: 60 mg - Objective Vital Signs: Vital Signs Temperature 98.2 F 06/11/19 12:00 Pulse Rate 109 H 06/11/19 12:00 Respiratory Rate 22 H 06/11/19 12:00 Blood Pressure 126/74 06/11/19 12:00 O2 Sat by Pulse Oximetry (%) 100 06/11/19 09:00 General: Middle-aged man, sick looking in respiratory distress HEENT; mucous membranes moist, no anemia, no jaundice, PERRLA, no nystagmus Neck: No JVD, supple, no bruit, thyroid palpably normal, normal carotid pulsations. Chest: Bilateral diffuse wheezes with tachypnea CVS: S1-S2 regularno murmur/gallop/rub Abdomen: Nondistended, soft, bowel sounds present. 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 Code(s): J96.21 - ACUTE AND CHRONIC RESPIRATORY FAILURE WITH HYPOXIA; J96.22 - ACUTE AND CHRONIC RESPIRATORY FAILURE WITH HYPERCAPNIA (2) Anxiety and depression Assessment/Plan: Continue home medication Code(s): F41.9 - ANXIETY DISORDER, UNSPECIFIED; F32.9 - MAJOR DEPRESSIVE DISORDER, SINGLE EPISODE, UNSPECIFIED (3) History of coronary artery bypass graft Assessment/Plan: At present stable follow-up cardiology recommendation Code(s): Z95.1 - PRESENCE OF AORTOCORONARY BYPASS GRAFT (4) Diastolic CHF Assessment/Plan: Follow cardiology recommendation Code(s): I50.30 - UNSPECIFIED DIASTOLIC (CONGESTIVE) HEART FAILURE Qualifiers: Heart failure chronicity: unspecified Qualified Code(s): I50.30 - Unspecified diastolic (congestive) heart failure
--- NOTE | 2019-06-11 12:52 | PROC ---
Procedure Note Procedure: Midline Cath: Indication: Poor IV access 5fr 20mc dualType: juan luis Pt prepped and draped in the usual sterile fashion. Lidocaine 1% w/o epi was use for local anesthesia. Under ultrasound guidance the right basilic vein was cannulated via modified seldinger tech. Good non pulsatile blood flow was noted from both pots. Sterial dressing was applied. Pt tolerated procedure well w/o complication. EBL 0. Boerem ACNP Pulm/CCM Miline: [id number] Ultrasound guidance: [id number]
[2019-06-11] MEDS: MULTIVIT INJ. ADULT COMBO WITH VIT K 1 COMBO 10 ML VIAL IV SCH (14:05)
[2019-06-12] MEDS: AMINO ACIDS 4.25%/D5W 1,000 ML IV SCH ×2 (02:23→17:27)
--- NOTE | 2019-06-12 03:55 | PN ---
Progress Note, Physician Chief Complaint: Pt A&Ox3; cannot finish a sentence without feeling dyspneic. History of Present Illness: 63 year old man with past medical history significant for CAD s/p CABG, end- stage COPD-- on home O2, awaiting lung transplant; HIV, hypertension, hyperlipidemia, diastolic CHF, rheumatoid arthritis on methotrexate, who presents to the emergency department with weakness, lethargy, difficulty breathing. History limited; progressively worsening ability to breathe over the last few days. - Current Medication List Current Medications: Active Medications Albuterol Sulfate (Ventolin 0.083% Nebulizer Soln -) 1 amp NEB RQ4H PRN PRN Reason: Dyspnea Last Admin: 06/06/19 04:20 Dose: 1 amp Albuterol/Ipratropium (Duoneb -) 1 amp NEB RQID [facility] Last Admin: 06/11/19 19:34 Dose: 1 amp Chlorhexidine Gluconate (Hibiclens For Decolonization -) 1 applic TP HS [facility] Last Admin: 06/11/19 21:14 Dose: 1 applic Clonazepam (Klonopin -) 0.5 mg PO BID PRN PRN Reason: ANXIETY Last Admin: 06/11/19 11:03 Dose: 0.5 mg Clopidogrel Bisulfate (Plavix -) 75 mg PO DAILY [facility] Last Admin: 06/11/19 09:46 Dose: 75 mg Heparin Sodium (Porcine) (Heparin -) 5,000 unit SQ TID [facility] Last Admin: 06/11/19 21:14 Dose: 5,000 unit Amino Acids (Clinimix -) 1,000 mls @ 84 mls/hr IV Q12H [facility] Last Admin: 06/12/19 02:23 Dose: 84 mls/hr Morphine Sulfate (Morphine Sulfate) 2 mg IVPUSH Q4H PRN PRN Reason: PAIN LEVEL 6-10 Last Admin: 06/08/19 16:33 Dose: 2 mg Multivitamins/Minerals (Infuvite Adult -) 10 ml IV DAILY [facility] Last Admin: 06/11/19 14:05 Dose: 10 ml Prednisone (Deltasone -) 60 mg PO DAILY [facility] Last Admin: 06/11/19 10:59 Dose: 60 mg - Objective Vital Signs: Vital Signs Temperature 98.3 F 06/11/19 18:00 Pulse Rate 100 H 06/12/19 02:00 Respiratory Rate 20 06/12/19 02:00 Blood Pressure 146/82 06/12/19 02:00 O2 Sat by Pulse Oximetry (%) 100 06/11/19 09:00 Constitutional: Yes: Anxious, Mild Distress Eyes: Yes: WNL HENT: Yes: WNL Neck: Yes: WNL Cardiovascular: Yes: WNL, S1, S2, S4 Respiratory: Yes: Diminished Gastrointestinal: Yes: Soft ...Rectal Exam: Yes: Deferred Genitourinary: No: Anuria Breast(s): Yes: WNL Musculoskeletal: Yes: Muscle Weakness Extremities: Yes: Cold Edema: No Peripheral Pulses WNL: Yes Integumentary: Yes: WNL Neurological: Yes: Alert, Oriented, Weakness Psychiatric: Yes: Alert, Oriented, Other (depression) Labs: CBC, BMP 06/11/19 05:55 06/11/19 05:55 - ....Imaging Chest X-ray: Image Reviewed EKG: Image Reviewed Other: Image Reviewed (sinus rhythm; periods of sinus tachycardia) Problem List - Problems (1) Acute on chronic respiratory failure with hypoxia and hypercapnia Assessment/Plan: Continue O2, steroids, and bronchodilators per animal skinner. Code(s): J96.21 - ACUTE AND CHRONIC RESPIRATORY FAILURE WITH HYPOXIA; J96.22 - ACUTE AND CHRONIC RESPIRATORY FAILURE WITH HYPERCAPNIA (2) CAD (coronary artery disease) Assessment/Plan: On clopidogrel. F/u lipid profile, and start statin as needed. Code(s): I25.10 - ATHSCL HEART DISEASE OF [place] CORONARY ARTERY W/O ANG PCTRS Qualifiers: Coronary Disease-Associated Artery/Lesion type: [place] artery [place] vs. transplanted heart: [place] heart Associated angina: without angina Qualified Code(s): I25.10 - Atherosclerotic heart disease of [place] coronary artery without angina pectoris (3) COPD exacerbation Assessment/Plan: see "...Respiratory Failure"). Code(s): J44.1 - CHRONIC OBSTRUCTIVE PULMONARY DISEASE W (ACUTE) EXACERBATION (4) Cough Code(s): R05 - COUGH (5) Diastolic CHF Code(s): I50.30 - UNSPECIFIED DIASTOLIC (CONGESTIVE) HEART FAILURE Qualifiers: Heart failure chronicity: unspecified Qualified Code(s): I50.30 - Unspecified diastolic (congestive) heart failure (6) HTN (hypertension) Code(s): I10 - ESSENTIAL (PRIMARY) HYPERTENSION Qualifiers: Hypertension type: essential hypertension Qualified Code(s): I10 - Essential (primary) hypertension (7) History of coronary artery bypass graft Assessment/Plan: On clopidogrel. Start statin (elevated LDL; s/p CABG). Code(s): Z95.1 - PRESENCE OF AORTOCORONARY BYPASS GRAFT (8) Hypercholesterolemia Assessment/Plan: LDL 122 mg/dL. Start statin. Code(s): E78.0 - PURE HYPERCHOLESTEROLEMIA * DO NOT USE * (9) PSVT (paroxysmal supraventricular tachycardia) Assessment/Plan: by history. Consider diltiazem for both HTN and arrhythmia. Code(s): I47.1 - SUPRAVENTRICULAR TACHYCARDIA (10) Sinus tachycardia Code(s): R00.0 - TACHYCARDIA, UNSPECIFIED (11) Acute on chronic diastolic (congestive) heart failure Code(s): I50.33 - ACUTE ON CHRONIC DIASTOLIC (CONGESTIVE) HEART FAILURE (12) Elevated brain natriuretic peptide (BNP) level Assessment/Plan: Major contributor likely from severe pulmonary HTN with COPD exacerbation; pt also with CAD and diastolic CHF. Code(s): R79.89 - OTHER SPECIFIED ABNORMAL FINDINGS OF BLOOD CHEMISTRY (13) Anxiety and depression Assessment/Plan: Pt is frustrated that he can no longer do even the most simple activities without becoming markedly short of breath; he says he sometimes feels he can no longer "go on". On Klonopin. Code(s): F41.9 - ANXIETY DISORDER, UNSPECIFIED; F32.9 - MAJOR DEPRESSIVE DISORDER, SINGLE EPISODE, UNSPECIFIED
--- NOTE | 2019-06-12 04:01 | PN ---
Progress Note, Physician - Current Medication List Current Medications: Active Medications Albuterol Sulfate (Ventolin 0.083% Nebulizer Soln -) 1 amp NEB RQ4H PRN PRN Reason: Dyspnea Last Admin: 06/06/19 04:20 Dose: 1 amp Albuterol/Ipratropium (Duoneb -) 1 amp NEB RQID [facility] Last Admin: 06/11/19 19:34 Dose: 1 amp Chlorhexidine Gluconate (Hibiclens For Decolonization -) 1 applic TP HS [facility] Last Admin: 06/11/19 21:14 Dose: 1 applic Clonazepam (Klonopin -) 0.5 mg PO BID PRN PRN Reason: ANXIETY Last Admin: 06/11/19 11:03 Dose: 0.5 mg Clopidogrel Bisulfate (Plavix -) 75 mg PO DAILY [facility] Last Admin: 06/11/19 09:46 Dose: 75 mg Heparin Sodium (Porcine) (Heparin -) 5,000 unit SQ TID [facility] Last Admin: 06/11/19 21:14 Dose: 5,000 unit Amino Acids (Clinimix -) 1,000 mls @ 84 mls/hr IV Q12H [facility] Last Admin: 06/12/19 02:23 Dose: 84 mls/hr Morphine Sulfate (Morphine Sulfate) 2 mg IVPUSH Q4H PRN PRN Reason: PAIN LEVEL 6-10 Last Admin: 06/08/19 16:33 Dose: 2 mg Multivitamins/Minerals (Infuvite Adult -) 10 ml IV DAILY [facility] Last Admin: 06/11/19 14:05 Dose: 10 ml Prednisone (Deltasone -) 60 mg PO DAILY [facility] Last Admin: 06/11/19 10:59 Dose: 60 mg - Objective Vital Signs: Vital Signs Temperature 98.3 F 06/11/19 18:00 Pulse Rate 100 H 06/12/19 02:00 Respiratory Rate 20 06/12/19 02:00 Blood Pressure 146/82 06/12/19 02:00 O2 Sat by Pulse Oximetry (%) 100 06/11/19 09:00 Labs: CBC, BMP 06/11/19 05:55 06/11/19 05:55 Problem List - Problems (1) Acute on chronic respiratory failure with hypoxia and hypercapnia Code(s): J96.21 - ACUTE AND CHRONIC RESPIRATORY FAILURE WITH HYPOXIA; J96.22 - ACUTE AND CHRONIC RESPIRATORY FAILURE WITH HYPERCAPNIA (2) CAD (coronary artery disease) Code(s): I25.10 - ATHSCL HEART DISEASE OF [place] CORONARY ARTERY W/O ANG PCTRS Qualifiers: Coronary Disease-Associated Artery/Lesion type: [place] artery [place] vs. transplanted heart: [place] heart Associated angina: without angina Qualified Code(s): I25.10 - Atherosclerotic heart disease of [place] coronary artery without angina pectoris (3) COPD exacerbation Code(s): J44.1 - CHRONIC OBSTRUCTIVE PULMONARY DISEASE W (ACUTE) EXACERBATION (4) Cough Code(s): R05 - COUGH (5) Diastolic CHF Code(s): I50.30 - UNSPECIFIED DIASTOLIC (CONGESTIVE) HEART FAILURE Qualifiers: Heart failure chronicity: unspecified Qualified Code(s): I50.30 - Unspecified diastolic (congestive) heart failure (6) HTN (hypertension) Code(s): I10 - ESSENTIAL (PRIMARY) HYPERTENSION Qualifiers: Hypertension type: essential hypertension Qualified Code(s): I10 - Essential (primary) hypertension (7) History of coronary artery bypass graft Code(s): Z95.1 - PRESENCE OF AORTOCORONARY BYPASS GRAFT (8) Hypercholesterolemia Code(s): E78.0 - PURE HYPERCHOLESTEROLEMIA * DO NOT USE * (9) PSVT (paroxysmal supraventricular tachycardia) Code(s): I47.1 - SUPRAVENTRICULAR TACHYCARDIA (10) Sinus tachycardia Code(s): R00.0 - TACHYCARDIA, UNSPECIFIED (11) Acute on chronic diastolic (congestive) heart failure Code(s): I50.33 - ACUTE ON CHRONIC DIASTOLIC (CONGESTIVE) HEART FAILURE (12) Elevated brain natriuretic peptide (BNP) level Code(s): R79.89 - OTHER SPECIFIED ABNORMAL FINDINGS OF BLOOD CHEMISTRY (13) Anxiety and depression Code(s): F41.9 - ANXIETY DISORDER, UNSPECIFIED; F32.9 - MAJOR DEPRESSIVE DISORDER, SINGLE EPISODE, UNSPECIFIED
[2019-06-12] MEDS: HEPARIN NA (PORCINE) 5,000 UNITS/ML 1ML VIAL SQ SCH ×2 (05:09→14:35)
[2019-06-12 07:32] LABS: ARTERIAL BLD GAS O2 SATURATION 90.8 % (95-98); ARTERIAL BLOOD GAS BASE EXCESS 9.3 meq/l (-2-2); ARTERIAL BLOOD GAS PCO2 53.3 mmHg (35-45); ARTERIAL BLOOD GAS pH 7.43 (7.35-7.45)
[2019-06-12 07:36] LABS: ALLENS TEST POSITIVE
[2019-06-12] MEDS: ALBUTEROL SO4 2.5/IPRATROPIUM 0.5 INH SOL 3 ML VIAL.NEB. NEB SCH ×4 (07:40→21:25)
[2019-06-12 07:59] LABS: BLOOD UREA NITROGEN 29.1 mg/dL (7-18); CALCIUM 8.9 mg/dL (8.5-10.1); CREATININE 0.7 mg/dL (0.55-1.3); MAGNESIUM 2.5 mg/dL (1.8-2.4); PHOSPHOROUS 2.3 mg/dL (2.5-4.9); POTASSIUM 4.6 mmol/L (3.5-5.1)
[2019-06-12 08:24] LABS: HEMATOCRIT 40.2 % (35.4-49); HEMOGLOBIN 13.4 GM/dL (11.7-16.9); MCH 30.4 pg (25.7-33.7); MCHC 33.3 g/dl (32.0-35.9); MEAN CELL VOLUME 91.3 fl (80-96); MEAN PLT VOLUME 8.1 fl (7.5-11.1); PLATELET COUNT 297 K/MM3 (134-434); RBC 4.41 M/mm3 (4.00-5.60); RDW 15.5 % (11.9-15.9)
--- NOTE | 2019-06-12 09:59 | PN ---
Progress Note, Physician Chief Complaint: Feels better History of Present Illness: Admitted with reparatory failure S/P extubation - Current Medication List Current Medications: Active Medications Albuterol Sulfate (Ventolin 0.083% Nebulizer Soln -) 1 amp NEB RQ4H PRN PRN Reason: Dyspnea Last Admin: 06/06/19 04:20 Dose: 1 amp Albuterol/Ipratropium (Duoneb -) 1 amp NEB RQID [facility] Last Admin: 06/12/19 07:40 Dose: 1 amp Chlorhexidine Gluconate (Hibiclens For Decolonization -) 1 applic TP HS [facility] Last Admin: 06/11/19 21:14 Dose: 1 applic Clonazepam (Klonopin -) 0.5 mg PO BID PRN PRN Reason: ANXIETY Last Admin: 06/11/19 11:03 Dose: 0.5 mg Clopidogrel Bisulfate (Plavix -) 75 mg PO DAILY [facility] Last Admin: 06/11/19 09:46 Dose: 75 mg Heparin Sodium (Porcine) (Heparin -) 5,000 unit SQ TID [facility] Last Admin: 06/12/19 05:09 Dose: 5,000 unit Amino Acids (Clinimix -) 1,000 mls @ 84 mls/hr IV Q12H [facility] Last Admin: 06/12/19 02:23 Dose: 84 mls/hr Morphine Sulfate (Morphine Sulfate) 2 mg IVPUSH Q4H PRN PRN Reason: PAIN LEVEL 6-10 Last Admin: 06/08/19 16:33 Dose: 2 mg Multivitamins/Minerals (Infuvite Adult -) 10 ml IV DAILY [facility] Last Admin: 06/11/19 14:05 Dose: 10 ml Prednisone (Deltasone -) 60 mg PO DAILY [facility] Last Admin: 06/11/19 10:59 Dose: 60 mg - Objective Vital Signs: Vital Signs Temperature 98.1 F 06/12/19 06:00 Pulse Rate 101 H 06/12/19 08:00 Respiratory Rate 16 06/12/19 08:00 Blood Pressure 119/96 06/12/19 08:00 O2 Sat by Pulse Oximetry (%) 98 06/12/19 08:55 Constitutional: Yes: Anxious Eyes: Yes: WNL HENT: Yes: WNL Neck: Yes: WNL Cardiovascular: Yes: WNL, Tachycardia Respiratory: Yes: On Nasal O2 Gastrointestinal: Yes: Normal Bowel Sounds ...Rectal Exam: Yes: Deferred Musculoskeletal: Yes: Muscle Weakness Neurological: Yes: Alert Labs: CBC, BMP 06/12/19 06:38 06/12/19 06:38 - ....Imaging X-ray: Report Reviewed Assessment/Plan Can be transferred to regular floor
[2019-06-12] MEDS: predniSONE 20 MG TABLET (UD) PO SCH (10:56)
--- NOTE | 2019-06-12 10:56 | PN ---
Progress Note, Physician History of Present Illness: 63yo man with a PMH of CAD s/p CABG, COPD on home O2 (on a list for lung transplant), HTN, HLD, HIV, CHF, RA on methotrexate, and anxiety presents to the emergency department with respiratory distress from home. Per the patient's family member, he was having SOB today over the past 24 hours and was increasingly short of breath. Per the daughter, she states he wanted to present earlier but did not. On history intake, the patient was speaking in 1 word answers and lethargic. He stated he felt short of breath and had chest tightness. Denies fevers, nausea, vomiting, dysuria, abdominal pain. PE: severe decreased breath sounds with audible rhonchi cardiac: rrr without murmurs abdomen: diffusely tender on palpation PMH Past medical history Major events CABG SVG to RCA 2013 Dr. Medrano Ongoing medical problems Abnormal stress test showing inferior wall ischemia April 09, 2014 [facility] CAD- Stent oRCA 2007 [facility] COPD CREDIT SPECIALIST oRCA prior stent site, o/w nonobstructive ds [address] [facility] Rheumatoid Arthritis unsucesful CREDIT SPECIALIST attempt 2013 [facility] - Current Medication List Current Medications: Active Medications Albuterol Sulfate (Ventolin 0.083% Nebulizer Soln -) 1 amp NEB RQ4H PRN PRN Reason: Dyspnea Last Admin: 06/06/19 04:20 Dose: 1 amp Albuterol/Ipratropium (Duoneb -) 1 amp NEB RQID [facility] Last Admin: 06/12/19 07:40 Dose: 1 amp Chlorhexidine Gluconate (Hibiclens For Decolonization -) 1 applic TP HS [facility] Last Admin: 06/11/19 21:14 Dose: 1 applic Clonazepam (Klonopin -) 0.5 mg PO BID PRN PRN Reason: ANXIETY Last Admin: 06/11/19 11:03 Dose: 0.5 mg Clopidogrel Bisulfate (Plavix -) 75 mg PO DAILY [facility] Last Admin: 06/11/19 09:46 Dose: 75 mg Heparin Sodium (Porcine) (Heparin -) 5,000 unit SQ TID [facility] Last Admin: 06/12/19 05:09 Dose: 5,000 unit Amino Acids (Clinimix -) 1,000 mls @ 84 mls/hr IV Q12H [facility] Last Admin: 06/12/19 02:23 Dose: 84 mls/hr Morphine Sulfate (Morphine Sulfate) 2 mg IVPUSH Q4H PRN PRN Reason: PAIN LEVEL 6-10 Last Admin: 06/08/19 16:33 Dose: 2 mg Multivitamins/Minerals (Infuvite Adult -) 10 ml IV DAILY [facility] Last Admin: 06/11/19 14:05 Dose: 10 ml Prednisone (Deltasone -) 60 mg PO DAILY [facility] Last Admin: 06/11/19 10:59 Dose: 60 mg - Objective Vital Signs: Vital Signs Temperature 98.1 F 06/12/19 06:00 Pulse Rate 101 H 06/12/19 08:00 Respiratory Rate 16 06/12/19 08:00 Blood Pressure 119/96 06/12/19 08:00 O2 Sat by Pulse Oximetry (%) 98 06/12/19 08:55 Eyes: Yes: WNL, Conjunctiva Clear, EOM Intact HENT: Yes: WNL, Atraumatic, Normocephalic Neck: Yes: WNL, Supple, Trachea Midline Cardiovascular: Yes: WNL, Regular Rate and Rhythm Respiratory: Yes: Diminished Gastrointestinal: Yes: WNL, Normal Bowel Sounds Genitourinary: Yes: WNL Musculoskeletal: Yes: WNL Extremities: Yes: WNL Edema: No Integumentary: Yes: WNL Neurological: Yes: WNL, Alert, Oriented ...Motor Strength: WNL Psychiatric: Yes: WNL Labs: CBC, BMP 06/12/19 06:38 06/12/19 06:38 Problem List - Problems (1) Acute on chronic respiratory failure with hypoxia and hypercapnia Code(s): J96.21 - ACUTE AND CHRONIC RESPIRATORY FAILURE WITH HYPOXIA; J96.22 - ACUTE AND CHRONIC RESPIRATORY FAILURE WITH HYPERCAPNIA (2) Abnormal LFTs Code(s): R79.89 - OTHER SPECIFIED ABNORMAL FINDINGS OF BLOOD CHEMISTRY (3) Abscess of calf Code(s): L02.419 - CUTANEOUS ABSCESS OF LIMB, UNSPECIFIED (4) Acute on chronic respiratory failure with hypoxemia Code(s): J96.21 - ACUTE AND CHRONIC RESPIRATORY FAILURE WITH HYPOXIA (5) Anxiety Code(s): F41.9 - ANXIETY DISORDER, UNSPECIFIED (6) CAD (coronary artery disease) Code(s): I25.10 - ATHSCL HEART DISEASE OF [place] CORONARY ARTERY W/O ANG PCTRS Qualifiers: Coronary Disease-Associated Artery/Lesion type: [place] artery [place] vs. transplanted heart: [place] heart Associated angina: without angina Qualified Code(s): I25.10 - Atherosclerotic heart disease of [place] coronary artery without angina pectoris (7) COPD (chronic obstructive pulmonary disease) Code(s): J44.9 - CHRONIC OBSTRUCTIVE PULMONARY DISEASE, UNSPECIFIED Qualifiers: COPD type: emphysema Emphysema type: unspecified Qualified Code(s): J43.9 - Emphysema, unspecified (8) COPD exacerbation Code(s): J44.1 - CHRONIC OBSTRUCTIVE PULMONARY DISEASE W (ACUTE) EXACERBATION (9) Chronic pain Code(s): G89.29 - OTHER CHRONIC PAIN (10) Compression fracture of L1 lumbar vertebra Code(s): S32.010A - WEDGE COMPRESSION FRACTURE OF FIRST LUMBAR VERTEBRA, INIT Qualifiers: Encounter type: initial encounter (11) Congestive cardiac failure Code(s): I50.9 - HEART FAILURE, UNSPECIFIED (12) Cough Code(s): R05 - COUGH (13) Diastolic CHF Code(s): I50.30 - UNSPECIFIED DIASTOLIC (CONGESTIVE) HEART FAILURE Qualifiers: Heart failure chronicity: unspecified Qualified Code(s): I50.30 - Unspecified diastolic (congestive) heart failure (14) Edema Code(s): R60.9 - EDEMA, UNSPECIFIED Qualifiers: Edema type: unspecified Qualified Code(s): R60.9 - Edema, unspecified (15) HTN (hypertension) Code(s): I10 - ESSENTIAL (PRIMARY) HYPERTENSION Qualifiers: Hypertension type: essential hypertension Qualified Code(s): I10 - Essential (primary) hypertension (16) History of coronary artery bypass graft Code(s): Z95.1 - PRESENCE OF AORTOCORONARY BYPASS GRAFT (17) History of percutaneous coronary intervention Code(s): Z98.89 - OTHER SPECIFIED POSTPROCEDURAL STATES * DO NOT USE * (18) Hypercholesterolemia Code(s): E78.0 - PURE HYPERCHOLESTEROLEMIA * DO NOT USE * (19) Hyperkalemia Code(s): E87.5 - HYPERKALEMIA (20) Inguinal hernia Code(s): K40.90 - UNIL INGUINAL HERNIA, W/O OBST OR GANGR, NOT SPCF RECUR (21) Intractable pain Code(s): R52 - PAIN, UNSPECIFIED (22) LLQ pain Code(s): R10.32 - LEFT LOWER QUADRANT PAIN (23) Left groin pain Code(s): R10.32 - LEFT LOWER QUADRANT PAIN (24) Leg pain Code(s): M79.606 - PAIN IN LEG, UNSPECIFIED (25) Lower extremity edema Code(s): R60.0 - LOCALIZED EDEMA (26) Lumbar disc herniation Code(s): M51.26 - OTHER INTERVERTEBRAL DISC DISPLACEMENT, LUMBAR REGION (27) Nosebleed Code(s): R04.0 - EPISTAXIS (28) PSVT (paroxysmal supraventricular tachycardia) Code(s): I47.1 - SUPRAVENTRICULAR TACHYCARDIA (29) Pain and swelling of right lower leg Code(s): M79.661 - PAIN IN RIGHT LOWER LEG; M79.89 - OTHER SPECIFIED SOFT TISSUE DISORDERS (30) Pneumonia Code(s): J18.9 - PNEUMONIA, UNSPECIFIED ORGANISM (31) Radiculopathy Code(s): M54.10 - RADICULOPATHY, SITE UNSPECIFIED Qualifiers: Spinal region: lumbar Qualified Code(s): M54.16 - Radiculopathy, lumbar region (32) Rheumatoid arthritis Code(s): M06.9 - RHEUMATOID ARTHRITIS, UNSPECIFIED (33) Rheumatoid arthritis involving ankle with positive rheumatoid factor Code(s): M05.779 - RHEU ARTHRIT W RHEU FACTOR OF UNSP ANK/FT W/O ORG/SYS INVOLV Qualifiers: Laterality: bilateral Qualified Code(s): M05.771 - Rheumatoid arthritis with rheumatoid factor of right ankle and foot without organ or systems involvement; M05.772 - Rheumatoid arthritis with rheumatoid factor of left ankle and foot without organ or systems involvement (34) Rheumatoid arthritis of multiple sites without organ or system involvement with positive rheumatoid factor Code(s): M05.79 - RHEU ARTHRITIS W RHEU FACTOR MULT SITE W/O ORG/SYS INVOLV (35) Sinus tachycardia Code(s): R00.0 - TACHYCARDIA, UNSPECIFIED Assessment/Plan Acute on Chronic Hypoxic and Hypercapneic Respiratory Failure Acute COPD Exacerbation Emphysema CAD s/p CABG HTN DM Hyperlipidemia Rheumatoid Arthritis h/o CVA Prostate Ca Anemia Lactic acidosis CABG SVG to RCA 2013 Dr. Medrano Abnormal stress test showing inferior wall ischemia April 09, 2014 [facility] CAD- Stent oRCA 2007 [facility] COPD CREDIT SPECIALIST oRCA prior stent site, o/w nonobstructive ds [address] [facility] unsucesful CREDIT SPECIALIST attempt 2013 [facility] Plan echo BNP comt present rx as per pulmonary and ICU team cc time spent 37 min
[2019-06-12] MEDS: CLOPIDOGREL BISULFATE 75 MG TABLET (FP) PO SCH (10:57)
--- NOTE | 2019-06-12 10:57 | PN ---
Progress Note, Physician History of Present Illness: 64 y/o M with a hx of HTN, HLD,DM<COPD CAD s/p CABG, CHF, RA,CVA admitted 06/04 for respiratory failure with hypoxia and hypercapnia complaining of productive cough this a.m (green phlegm) currenlty on high flow O2. denies chest pain, fever, nausea, vomiting, diarrhea. Has been tolerating PO intake - Current Medication List Current Medications: Active Medications Albuterol Sulfate (Ventolin 0.083% Nebulizer Soln -) 1 amp NEB RQ4H PRN PRN Reason: Dyspnea Last Admin: 06/06/19 04:20 Dose: 1 amp Albuterol/Ipratropium (Duoneb -) 1 amp NEB RQID [facility] Last Admin: 06/12/19 07:40 Dose: 1 amp Chlorhexidine Gluconate (Hibiclens For Decolonization -) 1 applic TP HS [facility] [place] Last Admin: 06/11/19 21:14 Dose: 1 applic Clonazepam (Klonopin -) 0.5 mg PO BID PRN PRN Reason: ANXIETY Last Admin: 06/11/19 11:03 Dose: 0.5 mg Clopidogrel Bisulfate (Plavix -) 75 mg PO DAILY [facility] [place] Last Admin: 06/11/19 09:46 Dose: 75 mg Heparin Sodium (Porcine) (Heparin -) 5,000 unit SQ TID [facility] Last Admin: 06/12/19 05:09 Dose: 5,000 unit Amino Acids (Clinimix -) 1,000 mls @ 84 mls/hr IV Q12H [facility] Last Admin: 06/12/19 02:23 Dose: 84 mls/hr Morphine Sulfate (Morphine Sulfate) 2 mg IVPUSH Q4H PRN PRN Reason: PAIN LEVEL 6-10 Last Admin: 06/08/19 16:33 Dose: 2 mg Multivitamins/Minerals (Infuvite Adult -) 10 ml IV DAILY [facility] [place] Last Admin: 06/11/19 14:05 Dose: 10 ml Prednisone (Deltasone -) 60 mg PO DAILY [facility] Last Admin: 06/11/19 10:59 Dose: 60 mg - Objective Vital Signs: Vital Signs Temperature 98.1 F 06/12/19 06:00 Pulse Rate 101 H 06/12/19 08:00 Respiratory Rate 16 06/12/19 08:00 Blood Pressure 119/96 06/12/19 08:00 O2 Sat by Pulse Oximetry (%) 98 06/12/19 08:55 Constitutional: No: No Distress, Calm Eyes: Yes: WNL HENT: Yes: WNL Cardiovascular: Yes: Regular Rate and Rhythm, S1, S2. No: Bruit, Gallop Respiratory: Yes: Regular, CTA Bilaterally, Cough, Other (on high glow oxygen) Gastrointestinal: Yes: Normal Bowel Sounds, Soft. No: Palpable Mass, Tenderness , Epigastrium, Tenderness, Rebound Extremities: No: Calf Tenderness, Cold, Cool, Cyanosis Edema: No Peripheral Pulses WNL: Yes Labs: CBC, BMP 06/12/19 06:38 06/12/19 06:38 Problem List - Problems (1) Acute on chronic respiratory failure with hypoxia and hypercapnia Problems reviewed: Yes Code(s): J96.21 - ACUTE AND CHRONIC RESPIRATORY FAILURE WITH HYPOXIA; J96.22 - ACUTE AND CHRONIC RESPIRATORY FAILURE WITH HYPERCAPNIA Impression/Plan Impression/Plan: A/P 64 y/o M with extensive medical hx admitted for respiratory failure with hypoxia and hypercapnia was intubated at onset of ICU stay currently extubated and on high flow O2 pH improved to 7.43, PCO2 down to 53.3 from 100, PO2 64 alert and oriented and in NAD CV:Echo and CXR PULM: currently on high flow O2. rate has been reduced and will observed at reduced rate if tolerating, will place on 3-4L O2 nasal cannula for transfer to floor. -Okay for floor transfer per Dr. Hendrix. -Nebs PRN -Prednisone RENAL: FENGI: ENDO: ID: DVT PPX: LINES/TUBES/DRAINS: Visit type - Emergency Visit Emergency Visit: Yes ED Registration Date: 06/04/19 Care time: The patient presented to the Emergency Department on the above date and was hospitalized for further evaluation of their emergent condition. - New Patient This patient is new to me today: No - Critical Care Critical Care patient: No - Discharge Referral Referred to [facility] No
[2019-06-12] MEDS: clonazePAM 0.5 MG TABLET PO PRN ×2 (10:59→20:03)
--- NOTE | 2019-06-12 11:29 | PN ---
Teaching Attending Note Name of Resident: Ella Munguia ATTENDING PHYSICIAN STATEMENT I saw and evaluated the patient. I reviewed the resident's note and discussed the case with the resident. I agree with the resident's findings and plan as documented. SUBJECTIVE: Patient seen and examined in the ICU. Remains on HFOT. Reports feeling better. Less SOB. No CP. Intake & Output 06/09/19 06/10/19 06/11/19 06/12/19 23:59 23:59 23:59 23:59 Intake Total 698 2008 1721 588 Output Total 1100 1550 550 Balance -402 2008 171 38 Weight 130 lb 130 lb 6.4 oz 124 lb 12.8 oz 129 lb 12.8 oz Last Vital Signs Temp Pulse Resp BP Pulse Ox 98.1 F 101 H 16 119/96 98 06/12/19 06:00 06/12/19 08:00 06/12/19 08:00 06/12/19 08:00 06/12/19 08:55 Active Medications Albuterol Sulfate (Ventolin 0.083% Nebulizer Soln -) 1 amp NEB RQ4H PRN PRN Reason: Dyspnea Last Admin: 06/06/19 04:20 Dose: 1 amp Albuterol/Ipratropium (Duoneb -) 1 amp NEB RQID [facility] Last Admin: 06/12/19 07:40 Dose: 1 amp Chlorhexidine Gluconate (Hibiclens For Decolonization -) 1 applic TP HS [facility] Last Admin: 06/11/19 21:14 Dose: 1 applic Clonazepam (Klonopin -) 0.5 mg PO BID PRN PRN Reason: ANXIETY Last Admin: 06/12/19 10:59 Dose: 0.5 mg Clopidogrel Bisulfate (Plavix -) 75 mg PO DAILY [facility] Last Admin: 06/12/19 10:57 Dose: 75 mg Heparin Sodium (Porcine) (Heparin -) 5,000 unit SQ TID [facility] Last Admin: 06/12/19 05:09 Dose: 5,000 unit Amino Acids (Clinimix -) 1,000 mls @ 84 mls/hr IV Q12H [facility] Last Admin: 06/12/19 02:23 Dose: 84 mls/hr Morphine Sulfate (Morphine Sulfate) 2 mg IVPUSH Q4H PRN PRN Reason: PAIN LEVEL 6-10 Last Admin: 06/08/19 16:33 Dose: 2 mg Multivitamins/Minerals (Infuvite Adult -) 10 ml IV DAILY [facility] Last Admin: 06/11/19 14:05 Dose: 10 ml Prednisone (Deltasone -) 60 mg PO DAILY [facility] Last Admin: 06/12/19 10:56 Dose: 60 mg Exam: General: awake and alert, NAD HEENT: PRRL, no JVD, anicteric sclera CV: RRR Pulm: diminished w/ poor airmovement Abd: Soft, Non-tender, ND, (+) BS Ext: WWP, trace LE edema Neuro: AOx3, CN grossly intact Laboratory Results - last 24 hr 06/12/19 06/12/19 06/12/19 06:38 06:38 07:10 WBC 11.0 H RBC 4.41 Hgb 13.4 Hct 40.2 MCV 91.3 MCH 30.4 MCHC 33.3 RDW 15.5 Plt Count 297 MPV 8.1 Anticoagulation Therapy No Result Required. Puncture Site Right radial ABG pH 7.43 ABG pCO2 at Pt Temp 53.3 H ABG pO2 at Pt Temp 62.0 L ABG HCO3 35.0 H ABG O2 Sat (Measured) 90.8 L ABG O2 Content 16.7 ABG Base Excess 9.3 H Michael Test Positive O2 Delivery Device High flow/40 lpm Oxygen Flow Rate 35% Vent Mode No Result Required. Vent Rate No Result Required. Mechanical Rate No Result Required. Pressure Support Vent No Result Required. Sodium 139 Potassium 4.6 Chloride 98 Carbon Dioxide 38 H Anion Gap 3 L BUN 29.1 H Creatinine 0.7 Est GFR (CKD-EPI)AfAm 117.22 Est GFR (CKD-EPI)NonAf 101.14 Random Glucose 82 Calcium 8.9 Phosphorus 2.3 L Magnesium 2.5 H ASSESSMENT AND PLAN: Acute on Chronic Hypoxic and Hypercapneic Respiratory Failure Acute COPD Exacerbation Emphysema CAD HTN DM Hyperlipidemia Rheumatoid Arthritis h/o CVA Prostate Ca Anemia - Wean HFOT - O2 to keep Spo2 88-92% - BD TX PRN - Nocturnal NIPPV support - S/P Abx - Prednisone - Lasix as needed - SQH - SCD - GI ppx - 4W / 4S monitoring Dr Arce
[2019-06-12] MEDS ORDERED: PT OWN MED DRAWER 7, Y5N ONE ×2 (14:33→17:01)
[2019-06-12] MEDS ORDERED: POTASSIUM PHOSPHATE 25 MM in SODIUM CHLORIDE 250 ML IVPB ONE (15:21)
[2019-06-12 16:03] VITALS: BMI 22.1
[2019-06-12] MEDS: MULTIVIT INJ. ADULT COMBO WITH VIT K 1 COMBO 10 ML VIAL IV SCH (20:03)
[2019-06-12] MEDS: CHLORHEXIDINE GLUCONATE 4% CLEANSER FOR DECOLONIZATION TP SCH (21:42)
[2019-06-12] MEDS ORDERED: FAT EMULSIONS 250 ML IV SCH (22:00)
[2019-06-12] MEDS ORDERED: FAT EMULSIONS 20% 250 ML PREMIX INFUS.BAG IV SCH (22:00)
[2019-06-12] MEDS ORDERED: ALBUTEROL SO4 0.083% IH SOL 2.5 MG/3 ML VIAL.NEB. NEB PRN (22:44)
[2019-06-12] MEDS ORDERED: MORPHINE SULFATE 2 MG/ML VIAL IVPUSH PRN (22:44)
[2019-06-13] MEDS: AMINO ACIDS 4.25%/D5W 1,000 ML IV SCH ×3 (05:07→17:39)
[2019-06-13] MEDS: HEPARIN NA (PORCINE) 5,000 UNITS/ML 1ML VIAL SQ SCH ×3 (05:12→21:45)
[2019-06-13] MEDS: clonazePAM 0.5 MG TABLET PO PRN ×2 (05:23→21:45)
[2019-06-13 06:47] LABS: BASO % 0.1 % (0-2.0); EOS % 0.4 % (0-4.5); HEMATOCRIT 39.8 % (35.4-49); HEMOGLOBIN 13.2 GM/dL (11.7-16.9); LYMPH % 5.8 % (8-40); MCH 30.2 pg (25.7-33.7); MCHC 33.1 g/dl (32.0-35.9); MEAN CELL VOLUME 91.4 fl (80-96); MEAN PLT VOLUME 8.3 fl (7.5-11.1); MONO % 11.3 % (3.8-10.2); NEUT % 82.4 % (42.8-82.8); PLATELET COUNT 269 K/MM3 (134-434); RBC 4.36 M/mm3 (4.00-5.60); RDW 15.2 % (11.9-15.9); WHITE BLOOD COUNT 13.4 K/mm3 (4.0-10.0)
[2019-06-13 07:17] LABS: BLOOD UREA NITROGEN 26.1 mg/dL (7-18); CALCIUM 8.6 mg/dL (8.5-10.1); CREATININE 0.6 mg/dL (0.55-1.3); MAGNESIUM 2.7 mg/dL (1.8-2.4); PHOSPHOROUS 3.6 mg/dL (2.5-4.9); POTASSIUM 4.6 mmol/L (3.5-5.1)
[2019-06-13] MEDS: ALBUTEROL SO4 2.5/IPRATROPIUM 0.5 INH SOL 3 ML VIAL.NEB. NEB SCH ×4 (08:30→20:50)
--- NOTE | 2019-06-13 09:45 | EKG ---
Test Reason : Blood Pressure : / mmHG Vent. Rate : 119 BPM Atrial Rate : 119 BPM P-R Int : 094 ms QRS Dur : 120 ms QT Int : 324 ms P-R-T Axes : 088 254 069 degrees QTc Int : 455 ms SINUS TACHYCARDIA WITH SHORT ND POSSIBLE LEFT ATRIAL ENLARGEMENT PULMONARY DISEASE PATTERN RIGHT BUNDLE BRANCH BLOCK , PLUS RIGHT VENTRICULAR HYPERTROPHY ABNORMAL ECG WHEN COMPARED WITH ECG OF 04-JUN-2019 22:29, ND INTERVAL HAS DECREASED LEFT POSTERIOR FASCICULAR BLOCK IS NO LONGER PRESENT ST NO LONGER ELEVATED IN ANTERIOR LEADS T WAVE INVERSION NOW EVIDENT IN ANTERIOR LEADS Confirmed by MD Jhonny, Moses ([id number]) on 06/13/2019 9:45:40 AM Referred By: YVONNE BRITTON Confirmed By:Moses Barry MD
--- NOTE | 2019-06-13 09:47 | PN ---
Progress Note, Physician Chief Complaint: Feels better History of Present Illness: Admitted with respiratory failure - Current Medication List Current Medications: Active Medications Albuterol Sulfate (Ventolin 0.083% Nebulizer Soln -) 1 amp NEB RQ4H PRN PRN Reason: Dyspnea Albuterol/Ipratropium (Duoneb -) 1 amp NEB RQID [facility] Clonazepam (Klonopin -) 0.5 mg PO BID PRN PRN Reason: ANXIETY Last Admin: 06/13/19 05:23 Dose: 0.5 mg Clopidogrel Bisulfate (Plavix -) 75 mg PO DAILY [facility] Heparin Sodium (Porcine) (Heparin -) 5,000 unit SQ TID [facility] Last Admin: 06/13/19 05:12 Dose: 5,000 unit Amino Acids (Clinimix -) 1,000 mls @ 84 mls/hr IV Q12H [facility] Last Admin: 06/13/19 05:11 Dose: 84 mls/hr Fat Emulsion Intravenous (Intralipid -) 250 mls @ 20.833 mls/hr IV DAILY@2200 [facility] Morphine Sulfate (Morphine Sulfate) 2 mg IVPUSH Q4H PRN PRN Reason: PAIN LEVEL 6-10 Multivitamins/Minerals (Infuvite Adult -) 10 ml IV DAILY [facility] Prednisone (Deltasone -) 60 mg PO DAILY [facility] - Objective Vital Signs: Vital Signs Temperature 98 F 06/13/19 09:00 Pulse Rate 104 H 06/13/19 09:00 Respiratory Rate 20 06/13/19 09:00 Blood Pressure 100/60 06/13/19 09:00 O2 Sat by Pulse Oximetry (%) 97 06/12/19 22:00 Constitutional: Yes: No Distress Eyes: Yes: WNL HENT: Yes: WNL, Other Cardiovascular: Yes: Tachycardia Respiratory: Yes: On Nasal O2 Gastrointestinal: Yes: WNL ...Rectal Exam: Yes: Deferred Genitourinary: Yes: WNL Breast(s): Yes: WNL Edema: No Neurological: Yes: Alert Labs: CBC, BMP 06/13/19 05:38 06/13/19 05:38 - ....Imaging X-ray: Report Reviewed, Image Reviewed Assessment/Plan PT for ambulation
[2019-06-13] MEDS: predniSONE 20 MG TABLET (UD) PO SCH (09:58)
[2019-06-13] MEDS: MULTIVIT INJ. ADULT COMBO WITH VIT K 1 COMBO 10 ML VIAL IV SCH (09:58)
[2019-06-13] MEDS: CLOPIDOGREL BISULFATE 75 MG TABLET (FP) PO SCH (09:58)
[2019-06-13 10:07] LABS: ANISOCYTOSIS 1+; MACROCYTOSIS 0; OVALOCYTE 1+; PLATELET ESTIMATE NORMAL
--- NOTE | 2019-06-13 12:40 | PN ---
Progress Note (short form) - Note Progress Note: PULMONARY Breathing improving. Less cough and wheezing. Vital Signs Period Temp Pulse Resp BP Sys/Ellison Pulse Ox Last 24 Hr 97.7 F-99.5 F 94-125 17-20 100-140/60-94 97-100 Gen: less tachypneic Heart: RRR Lung: scattered rhonchi Abd: soft, nontender Ext: no edema CBC, BMP 06/13/19 05:38 06/13/19 05:38 Active Medications Albuterol Sulfate (Ventolin 0.083% Nebulizer Soln -) 1 amp NEB RQ4H PRN PRN Reason: Dyspnea Albuterol/Ipratropium (Duoneb -) 1 amp NEB RQID [facility] Last Admin: 06/13/19 08:30 Dose: 1 amp Clonazepam (Klonopin -) 0.5 mg PO BID PRN PRN Reason: ANXIETY Last Admin: 06/13/19 05:23 Dose: 0.5 mg Clopidogrel Bisulfate (Plavix -) 75 mg PO DAILY [facility] Last Admin: 06/13/19 09:58 Dose: 75 mg Heparin Sodium (Porcine) (Heparin -) 5,000 unit SQ TID [facility] Last Admin: 06/13/19 05:12 Dose: 5,000 unit Amino Acids (Clinimix -) 1,000 mls @ 84 mls/hr IV Q12H [facility] Last Admin: 06/13/19 05:11 Dose: 84 mls/hr Fat Emulsion Intravenous (Intralipid -) 250 mls @ 20.833 mls/hr IV DAILY@2200 [facility] Morphine Sulfate (Morphine Sulfate) 2 mg IVPUSH Q4H PRN PRN Reason: PAIN LEVEL 6-10 Multivitamins/Minerals (Infuvite Adult -) 10 ml IV DAILY [facility] Last Admin: 06/13/19 09:58 Dose: 10 ml Prednisone (Deltasone -) 60 mg PO DAILY [facility] Last Admin: 06/13/19 09:58 Dose: 60 mg A/P Acute on Chronic Hypoxic and Hypercapneic Respiratory Failure Acute COPD Exacerbation Emphysema CAD HTN DM Hyperlipidemia Rheumatoid Arthritis h/o CVA Prostate Ca Anemia - BiPAP as needed - prednisone taper - inhaled bronchodilators standing and PRN - O2 to keep Spo2 88-92% - DVT prophylaxis
[2019-06-13] MEDS: ATORVASTATIN CA 20 MG TABLET (FP) PO SCH (21:45)
[2019-06-13] MEDS: FAT EMULSIONS 250 ML IV SCH (21:45)
[2019-06-14] MEDS: AMINO ACIDS 4.25%/D5W 1,000 ML IV SCH ×2 (01:42→13:56)
[2019-06-14] MEDS: HEPARIN NA (PORCINE) 5,000 UNITS/ML 1ML VIAL SQ SCH ×3 (06:02→22:50)
[2019-06-14] MEDS: ALBUTEROL SO4 2.5/IPRATROPIUM 0.5 INH SOL 3 ML VIAL.NEB. NEB SCH ×4 (08:05→20:47)
--- NOTE | 2019-06-14 09:36 | PN ---
Progress Note, Physician Chief Complaint: Feels little better - Current Medication List Current Medications: Active Medications Albuterol Sulfate (Ventolin 0.083% Nebulizer Soln -) 1 amp NEB RQ4H PRN PRN Reason: Dyspnea Albuterol/Ipratropium (Duoneb -) 1 amp NEB RQID [facility] Last Admin: 06/13/19 20:50 Dose: 1 amp Atorvastatin Calcium (Lipitor -) 20 mg PO HS [facility] Last Admin: 06/13/19 21:45 Dose: 20 mg Clonazepam (Klonopin -) 0.5 mg PO BID PRN PRN Reason: ANXIETY Last Admin: 06/13/19 21:45 Dose: 0.5 mg Clopidogrel Bisulfate (Plavix -) 75 mg PO DAILY [facility] Last Admin: 06/13/19 09:58 Dose: 75 mg Heparin Sodium (Porcine) (Heparin -) 5,000 unit SQ TID [facility] Last Admin: 06/14/19 06:02 Dose: 5,000 unit Amino Acids (Clinimix -) 1,000 mls @ 84 mls/hr IV Q12H [facility] Last Admin: 06/14/19 01:42 Dose: Not Given Fat Emulsion Intravenous (Intralipid -) 250 mls @ 20.833 mls/hr IV DAILY@2200 [facility] Last Admin: 06/13/19 21:45 Dose: 20.833 mls/hr Morphine Sulfate (Morphine Sulfate) 2 mg IVPUSH Q4H PRN PRN Reason: PAIN LEVEL 6-10 Multivitamins/Minerals (Infuvite Adult -) 10 ml IV DAILY [facility] Last Admin: 06/13/19 09:58 Dose: 10 ml Prednisone (Deltasone -) 60 mg PO DAILY [facility] Last Admin: 06/13/19 09:58 Dose: 60 mg - Objective Vital Signs: Vital Signs Temperature 98.0 F 06/14/19 04:00 Pulse Rate 107 H 06/14/19 04:00 Respiratory Rate 20 06/14/19 04:00 Blood Pressure 95/57 L 06/14/19 04:00 O2 Sat by Pulse Oximetry (%) 95 06/13/19 20:40 Constitutional: Yes: Calm Eyes: Yes: WNL HENT: Yes: WNL Neck: Yes: WNL Cardiovascular: Yes: WNL Respiratory: Yes: On Nasal O2 Gastrointestinal: Yes: WNL ...Rectal Exam: Yes: WNL Genitourinary: Yes: WNL Edema: No Peripheral Pulses WNL: Yes Neurological: Yes: Alert Psychiatric: Yes: Alert Labs: CBC, BMP 06/13/19 05:38 06/13/19 05:38 Assessment/Plan Taper steroids
[2019-06-14] MEDS: predniSONE 20 MG TABLET (UD) PO SCH (10:06)
[2019-06-14] MEDS: CLOPIDOGREL BISULFATE 75 MG TABLET (FP) PO SCH (10:07)
[2019-06-14] MEDS: MULTIVIT INJ. ADULT COMBO WITH VIT K 1 COMBO 10 ML VIAL IV SCH (10:07)
[2019-06-14] MEDS: clonazePAM 0.5 MG TABLET PO PRN ×2 (10:13→22:54)
--- NOTE | 2019-06-14 11:50 | PN ---
Progress Note, Physician History of Present Illness: pulmonary alert,still dyspneic on nasal cannula - Current Medication List Current Medications: Active Medications Albuterol Sulfate (Ventolin 0.083% Nebulizer Soln -) 1 amp NEB RQ4H PRN PRN Reason: Dyspnea Albuterol/Ipratropium (Duoneb -) 1 amp NEB RQID [facility] Last Admin: 06/14/19 08:05 Dose: 1 amp Atorvastatin Calcium (Lipitor -) 20 mg PO HS [facility] Last Admin: 06/13/19 21:45 Dose: 20 mg Clonazepam (Klonopin -) 0.5 mg PO BID PRN PRN Reason: ANXIETY Last Admin: 06/14/19 10:13 Dose: 0.5 mg Clopidogrel Bisulfate (Plavix -) 75 mg PO DAILY [facility] Last Admin: 06/14/19 10:07 Dose: 75 mg Heparin Sodium (Porcine) (Heparin -) 5,000 unit SQ TID [facility] Last Admin: 06/14/19 06:02 Dose: 5,000 unit Amino Acids (Clinimix -) 1,000 mls @ 84 mls/hr IV Q12H [facility] Last Admin: 06/14/19 01:42 Dose: Not Given Fat Emulsion Intravenous (Intralipid -) 250 mls @ 20.833 mls/hr IV DAILY@2200 [facility] Last Admin: 06/13/19 21:45 Dose: 20.833 mls/hr Morphine Sulfate (Morphine Sulfate) 2 mg IVPUSH Q4H PRN PRN Reason: PAIN LEVEL 6-10 Multivitamins/Minerals (Infuvite Adult -) 10 ml IV DAILY [facility] Last Admin: 06/14/19 10:07 Dose: 10 ml Prednisone (Deltasone -) 60 mg PO DAILY [facility] Last Admin: 06/14/19 10:06 Dose: 60 mg - Objective Vital Signs: Vital Signs Temperature 98.0 F 06/14/19 04:00 Pulse Rate 107 H 06/14/19 04:00 Respiratory Rate 20 06/14/19 04:00 Blood Pressure 95/57 L 06/14/19 04:00 O2 Sat by Pulse Oximetry (%) 95 06/13/19 20:40 Constitutional: Yes: Well Nourished, Calm Eyes: Yes: WNL HENT: Yes: WNL Neck: Yes: WNL Cardiovascular: Yes: Regular Rate and Rhythm, S1, S2 Respiratory: Yes: Wheezes (scattered [place] wheezes) Gastrointestinal: Yes: Normal Bowel Sounds, Soft Extremities: Yes: WNL Edema: No Labs: Problem List - Problems (1) Acute on chronic diastolic (congestive) heart failure Code(s): I50.33 - ACUTE ON CHRONIC DIASTOLIC (CONGESTIVE) HEART FAILURE (2) CAD (coronary artery disease) Code(s): I25.10 - ATHSCL HEART DISEASE OF [place] CORONARY ARTERY W/O ANG PCTRS Qualifiers: Coronary Disease-Associated Artery/Lesion type: [place] artery [place] vs. transplanted heart: [place] heart Associated angina: without angina Qualified Code(s): I25.10 - Atherosclerotic heart disease of [place] coronary artery without angina pectoris (3) COPD exacerbation Code(s): J44.1 - CHRONIC OBSTRUCTIVE PULMONARY DISEASE W (ACUTE) EXACERBATION (4) Cough Code(s): R05 - COUGH (5) HTN (hypertension) Code(s): I10 - ESSENTIAL (PRIMARY) HYPERTENSION Qualifiers: Hypertension type: essential hypertension Qualified Code(s): I10 - Essential (primary) hypertension (6) History of coronary artery bypass graft Code(s): Z95.1 - PRESENCE OF AORTOCORONARY BYPASS GRAFT (7) Rheumatoid arthritis Code(s): M06.9 - RHEUMATOID ARTHRITIS, UNSPECIFIED Assessment/Plan A/P Acute on Chronic Hypoxic and Hypercapneic Respiratory Failure Acute COPD Exacerbation Emphysema CAD HTN DM Hyperlipidemia Rheumatoid Arthritis h/o CVA Prostate Ca Anemia - BiPAP as needed - prednisone taper - inhaled bronchodilators standing and PRN - O2 to keep Spo2 88-92% - DVT prophylaxis DR GONZALEZ
[2019-06-14] MEDS ORDERED: PT OWN MED DRAWER 7, Y5N ONE (22:15)
[2019-06-14] MEDS: FAT EMULSIONS 250 ML IV SCH (22:50)
[2019-06-14] MEDS: ATORVASTATIN CA 20 MG TABLET (FP) PO SCH (22:50)
[2019-06-15] MEDS: AMINO ACIDS 4.25%/D5W 1,000 ML IV SCH ×2 (00:15→13:10)
[2019-06-15] MEDS: HEPARIN NA (PORCINE) 5,000 UNITS/ML 1ML VIAL SQ SCH ×3 (05:41→22:26)
[2019-06-15] MEDS: ALBUTEROL SO4 2.5/IPRATROPIUM 0.5 INH SOL 3 ML VIAL.NEB. NEB SCH ×4 (08:25→20:39)
[2019-06-15] MEDS ORDERED: PT OWN MED DRAWER 7, Y5N ONE ×2 (09:29→21:13)
--- NOTE | 2019-06-15 09:54 | PN ---
Progress Note, Physician Chief Complaint: SOB persists History of Present Illness: Dr Zapien note noted Advised tappering of prednisone - Current Medication List Current Medications: Active Medications Albuterol Sulfate (Ventolin 0.083% Nebulizer Soln -) 1 amp NEB RQ4H PRN PRN Reason: Dyspnea Albuterol/Ipratropium (Duoneb -) 1 amp NEB RQID [facility] Last Admin: 06/15/19 08:25 Dose: 1 amp Atorvastatin Calcium (Lipitor -) 20 mg PO HS [facility] Last Admin: 06/14/19 22:50 Dose: 20 mg Clonazepam (Klonopin -) 0.5 mg PO BID PRN PRN Reason: ANXIETY Last Admin: 06/14/19 22:54 Dose: 0.5 mg Clopidogrel Bisulfate (Plavix -) 75 mg PO DAILY [facility] Last Admin: 06/14/19 10:07 Dose: 75 mg Heparin Sodium (Porcine) (Heparin -) 5,000 unit SQ TID [facility] Last Admin: 06/15/19 05:41 Dose: 5,000 unit Amino Acids (Clinimix -) 1,000 mls @ 84 mls/hr IV Q12H [facility] Last Admin: 06/15/19 00:15 Dose: 84 mls/hr Fat Emulsion Intravenous (Intralipid -) 250 mls @ 20.833 mls/hr IV DAILY@2200 [facility] Last Admin: 06/14/19 22:50 Dose: 20.833 mls/hr Morphine Sulfate (Morphine Sulfate) 2 mg IVPUSH Q4H PRN PRN Reason: PAIN LEVEL 6-10 Multivitamins/Minerals (Infuvite Adult -) 10 ml IV DAILY [facility] Last Admin: 06/14/19 10:07 Dose: 10 ml Prednisone (Deltasone -) 60 mg PO DAILY [facility] Last Admin: 06/14/19 10:06 Dose: 60 mg - Objective Vital Signs: Vital Signs Temperature 98.5 F 06/15/19 06:00 Pulse Rate 100 H 06/15/19 06:00 Respiratory Rate 20 06/15/19 06:00 Blood Pressure 95/55 L 06/15/19 06:00 O2 Sat by Pulse Oximetry (%) 98 06/15/19 08:25 Constitutional: Yes: Anxious Eyes: Yes: WNL HENT: Yes: WNL Neck: Yes: WNL Cardiovascular: Yes: Regular Rate and Rhythm Respiratory: Yes: Diminished, SOB Gastrointestinal: Yes: WNL ...Rectal Exam: Yes: Deferred Genitourinary: Yes: WNL Musculoskeletal: Yes: Muscle Weakness Edema: No Peripheral Pulses WNL: Yes Wound/Incision: No: Clean/Dry Neurological: Yes: Alert Labs: CBC, BMP 06/13/19 05:38 06/13/19 05:38 Assessment/Plan Reduce prednisone to 40mg daily
[2019-06-15] MEDS: predniSONE 20 MG TABLET (UD) PO SCH (10:24)
[2019-06-15] MEDS: CLOPIDOGREL BISULFATE 75 MG TABLET (FP) PO SCH (10:25)
[2019-06-15] MEDS: clonazePAM 0.5 MG TABLET PO PRN ×2 (10:25→22:30)
[2019-06-15] MEDS: MULTIVIT INJ. ADULT COMBO WITH VIT K 1 COMBO 10 ML VIAL IV SCH (10:25)
--- NOTE | 2019-06-15 12:43 | PN ---
Progress Note (short form) - Note Progress Note: PULMONARY Breathing slowly improving. Less cough and wheezing. Vital Signs Period Temp Pulse Resp BP Sys/Ellison Pulse Ox Last 24 Hr 97.5 F-98.5 F 100-116 20-22 95-100/54-63 95-98 Gen: less tachypneic Heart: RRR Lung: distant breath sounds Abd: soft, nontender Ext: no edema CBC, BMP 06/13/19 05:38 06/13/19 05:38 Active Medications Albuterol Sulfate (Ventolin 0.083% Nebulizer Soln -) 1 amp NEB RQ4H PRN PRN Reason: Dyspnea Albuterol/Ipratropium (Duoneb -) 1 amp NEB RQID [facility] Last Admin: 06/15/19 12:34 Dose: 1 amp Atorvastatin Calcium (Lipitor -) 20 mg PO HS [facility] Last Admin: 06/14/19 22:50 Dose: 20 mg Clonazepam (Klonopin -) 0.5 mg PO BID PRN PRN Reason: ANXIETY Last Admin: 06/15/19 10:25 Dose: 0.5 mg Clopidogrel Bisulfate (Plavix -) 75 mg PO DAILY [facility] Last Admin: 06/15/19 10:25 Dose: 75 mg Heparin Sodium (Porcine) (Heparin -) 5,000 unit SQ TID [facility] Last Admin: 06/15/19 05:41 Dose: 5,000 unit Amino Acids (Clinimix -) 1,000 mls @ 84 mls/hr IV Q12H [facility] Last Admin: 06/15/19 00:15 Dose: 84 mls/hr Fat Emulsion Intravenous (Intralipid -) 250 mls @ 20.833 mls/hr IV DAILY@2200 [facility] Last Admin: 06/14/19 22:50 Dose: 20.833 mls/hr Morphine Sulfate (Morphine Sulfate) 2 mg IVPUSH Q4H PRN PRN Reason: PAIN LEVEL 6-10 Multivitamins/Minerals (Infuvite Adult -) 10 ml IV DAILY [facility] Last Admin: 06/15/19 10:25 Dose: 10 ml Prednisone (Deltasone -) 40 mg PO DAILY [facility] Last Admin: 06/15/19 10:24 Dose: 40 mg A/P Acute on Chronic Hypoxic and Hypercapneic Respiratory Failure Acute COPD Exacerbation Emphysema CAD HTN DM Hyperlipidemia Rheumatoid Arthritis h/o CVA Prostate Ca Anemia - BiPAP as needed - prednisone taper - inhaled bronchodilators standing and PRN - O2 to keep Spo2 88-92% - PO as tolerated - DVT prophylaxis
[2019-06-15] MEDS: FAT EMULSIONS 250 ML IV SCH (22:25)
[2019-06-15] MEDS: ATORVASTATIN CA 20 MG TABLET (FP) PO SCH (22:26)
[2019-06-16 01:08] VITALS: TEMP 97.7
[2019-06-16] MEDS: HEPARIN NA (PORCINE) 5,000 UNITS/ML 1ML VIAL SQ SCH (06:32)
[2019-06-16] MEDS: AMINO ACIDS 4.25%/D5W 1,000 ML IV SCH (06:32)
[2019-06-16] MEDS: ALBUTEROL SO4 2.5/IPRATROPIUM 0.5 INH SOL 3 ML VIAL.NEB. NEB SCH ×2 (07:45→12:00)
--- NOTE | 2019-06-16 09:14 | DS ---
Physical Examination Vital Signs: Vital Signs Temperature 97.7 F 06/16/19 01:07 Pulse Rate 104 H 06/16/19 05:00 Respiratory Rate 20 06/16/19 05:00 Blood Pressure 121/63 06/16/19 05:00 O2 Sat by Pulse Oximetry (%) 98 06/16/19 07:43 Findings/Remarks: Admitted with respiratory failure, was intubated and on respirator Now OK on nasal O2 Also diabetic Constitutional: Yes: Anxious Eyes: Yes: WNL HENT: Yes: WNL Neck: Yes: WNL Cardiovascular: Yes: WNL Respiratory: Yes: On Nasal O2, SOB on Exertion Gastrointestinal: Yes: Normal Bowel Sounds Renal/: Yes: WNL Musculoskeletal: Yes: Muscle Weakness Edema: No Neurological: Yes: Alert Psychiatric: Yes: Alert Labs: CBC, BMP 06/13/19 05:38 06/13/19 05:38 Discharge Summary Problems reviewed: Yes Reason For Visit: DIFFICULTY BREATHING Current Active Problems Acute on chronic diastolic (congestive) heart failure (Acute) Acute on chronic respiratory failure with hypoxia and hypercapnia (Acute) Anxiety and depression (Acute) Elevated brain natriuretic peptide (BNP) level (Acute) Condition: Critical - Instructions Referrals: Yohana Hendrix MD [Primary Care Provider] - - Home Medications Comprehensive Discharge Medication List: Ambulatory Orders Albuterol Sulfate Inhaler - [Ventolin Hfa Inhaler -] 1 - 2 inh PO Q4H PRN Budesonide/Formeterol Fumarate [SYMBICORT 160/4.5mcg -] 1 inh PO BID 05/25/18 Clopidogrel Bisulfate [Plavix] 75 mg PO DAILY 05/25/18 Folic Acid 1 mg PO DAILY 05/25/18 Furosemide [Lasix] 40 mg PO DAILY 05/25/18 Hydroxychloroquine Sulfate [Plaquenil] 200 mg PO BID 05/25/18 Methotrexate [Mexate -] 15 mg PO Q7D 05/25/18 Ramipril [Altace] 5 mg PO DAILY 05/25/18 Simvastatin [Zocor -] 40 mg PO HS 05/25/18 Azithromycin 1 tab PO WEEKLY 06/04/19 Clonazepam 0.5 mg PO BID 06/04/19 Fluticasone/Umeclidin/Vilanter [Trelegy Ellipta 100-62.5-25] 1 puff 06/04/19
[2019-06-16] MEDS: CLOPIDOGREL BISULFATE 75 MG TABLET (FP) PO SCH (11:04)
[2019-06-16] MEDS: MULTIVIT INJ. ADULT COMBO WITH VIT K 1 COMBO 10 ML VIAL IV SCH (11:05)
[2019-06-16] MEDS: predniSONE 20 MG TABLET (UD) PO SCH (11:05)
[2019-06-16 13:12] VITALS: BP 110/66; PULSE 82
== END 2019-06-16 12:39 | DRG 208 ==
LOC: JER 19:45 → JERBED 22:05 → JICU 23:43 → J4W 06-12 21:22
PROVIDERS: ADMIT Internal Medicine; ATTEND Internal Medicine
PROC: 0BH17EZ Insertion of Endotracheal Airway into Trachea, Via Natural or Artificial Opening (ICD-10-PCS; principal; 2019-06-04)
PROC: 5A1935Z Respiratory Ventilation, Less than 24 Consecutive Hours (ICD-10-PCS; 2019-06-04)
PROC: 05HB33Z Insertion of Infusion Device into Right Basilic Vein, Percutaneous Approach (ICD-10-PCS; 2019-06-11)
PROC: B51MZZA Fluoroscopy of Right Upper Extremity Veins, Guidance (ICD-10-PCS; 2019-06-11)
DX: J96.21 Acute and chronic respiratory failure with hypoxia (principal); I45.2 Bifascicular block; J44.1 Chronic obstructive pulmonary disease with (acute) exacerbation; I50.30 Unspecified diastolic (congestive) heart failure; I47.1 Supraventricular tachycardia; I25.10 Atherosclerotic heart disease of native coronary artery without angina pectoris; J96.22 Acute and chronic respiratory failure with hypercapnia; E78.5 Hyperlipidemia, unspecified; I11.0 Hypertensive heart disease with heart failure; M06.9 Rheumatoid arthritis, unspecified; D64.9 Anemia, unspecified; F41.8 Other specified anxiety disorders; R79.89 Other specified abnormal findings of blood chemistry; Z95.5 Presence of coronary angioplasty implant and graft; Z95.1 Presence of aortocoronary bypass graft; Z99.81 Dependence on supplemental oxygen; Z85.46 Personal history of malignant neoplasm of prostate; Z86.73 Personal history of transient ischemic attack (TIA), and cerebral infarction without residual deficits
CPT/HCPCS: 36415; 36600; 70450-TC; 71045-TC-FY; 71260-TC; 74177-TC; 80048; 80053; 80061; 81003; 82375; 82550; 82553; 82803; 83050; 83605; 83721; 83735; 83880; 84100; 84439; 84443; 84484; 85025; 85027; 87040; 87070; 87086; 87205; 87389; 87804; 90670; 93005; 93010; 93306-TC; 94640; 94660; 97116-GP; 97161-GP; 99284-25; J1644; J7030; Q9967

== ENCOUNTER 2019-06-28 00:01 | Inpatient (IN) | payer OTHER ==
[2019-06-28] MEDS ORDERED: SODIUM CHLORIDE 1,715 ML IV ONE (00:37)
--- NOTE | 2019-06-28 00:49 | PDOC ---
History of Present Illness - General History Source: Patient Exam Limitations: No Limitations - History of Present Illness Initial Comments: 06/28/19 00:49 Patient is 64M with history of CABG, COPD on home O2 (on a list for lung transplant), HTN, HLD, HIV, CHF, RA on methotrexate, and anxiety here today complaining of 1 day of worsening shortness of breath. He states that it has gotten progressively harder for him to breathe today. Endorses associated cough. Denies nausea, vomiting, fevers, chills, chest pain, and abdominal pain. Denies dysuria, constipation, diarrhea. Endorses a mild increase in the amount of leg swelling. Patient was recently intubated in the ED for hypercarbic respiratory failure and was discharged to [facility]. Received two breathing treatments today. <Raul Shahid - Last Filed: 06/28/19 07:15> <Elisa Parks - Last Filed: 06/28/19 07:22> - General Chief Complaint: Shortness of Breath Stated Complaint: DIFFICULTY BREATHING Time Seen by Provider: 06/28/19 00:17 Past History - Past Medical History Anemia: No Asthma: No Cancer: No Cardiac Disorders: Yes ([place], stent, BYPASS) CVA: No COPD: Yes (awaiting lung transplant) CHF: Yes Dementia: No Diabetes: No GI Disorders: No Disorders: No HTN: Yes Hypercholesterolemia: Yes Liver Disease: No Psychiatric Problems: Yes (anxiety) Seizures: No Thyroid Disease: No - Surgical History Abdominal Surgery: No Appendectomy: No Cardiac Surgery: Yes (Stent, cardiaccath) Cholecystectomy: No Lung Surgery: No Neurologic Surgery: No Orthopedic Surgery: Yes (KNEE) - Immunization History Immunization Up to Date: Yes - Psycho Social/Smoking Cessation Hx Smoking Status: No Smoking History: Former smoker Have you smoked in the past 12 months: No Number of Cigarettes Smoked Daily: 0 If you are a former smoker, when did you quit?: 3YRS Information on smoking cessation initiated: No Hx Alcohol Use: No Drug/Substance Use Hx: No Substance Use Type: None Hx Substance Use Treatment: No <Raul Shahid - Last Filed: 06/28/19 07:15> <Elisa Parks - Last Filed: 06/28/19 07:22> - Past Medical History Allergies/Adverse Reactions: Allergies Allergy/AdvReac Type Severity Reaction Status Date / Time Penicillins Allergy Severe Rash Verified 06/28/19 00:21 seafood Allergy Severe Rash Uncoded 06/28/19 00:21 Home Medications: Ambulatory Orders Albuterol Sulfate Inhaler - [Ventolin Hfa Inhaler -] 1 - 2 inh PO Q4H PRN Budesonide/Formeterol Fumarate [SYMBICORT 160/4.5mcg -] 1 inh PO BID 05/25/18 Clopidogrel Bisulfate [Plavix] 75 mg PO DAILY 05/25/18 Folic Acid 1 mg PO DAILY 05/25/18 Furosemide [Lasix] 40 mg PO DAILY 05/25/18 Hydroxychloroquine Sulfate [Plaquenil] 200 mg PO BID 05/25/18 Methotrexate [Mexate -] 15 mg PO Q7D 05/25/18 Ramipril [Altace] 5 mg PO DAILY 05/25/18 Simvastatin [Zocor -] 40 mg PO HS 05/25/18 Clonazepam 0.5 mg PO BID 06/04/19 Atorvastatin Calcium 20 mg PO HS 06/28/19 Fluticasone/Umeclidin/Vilanter [Trelegy Ellipta 100-62.5-25] 1 each IH ASDIR 07/17 Ramipril 5 mg PO DAILY 06/28/19 Review of Systems - Review of Systems Able to Perform ROS?: Yes Comments:: 06/28/19 00:55 GENERAL/CONSTITUTIONAL: No fever or chills. No weakness. HEAD, EYES, EARS, NOSE AND THROAT: No change in vision. No sore throat. CARDIOVASCULAR: No chest pain +shortness of breath RESPIRATORY: +cough, no wheezing, or hemoptysis. GASTROINTESTINAL: No nausea, vomiting, diarrhea or constipation. GENITOURINARY: No dysuria, frequency, or change in urination. MUSCULOSKELETAL: No joint or muscle swelling or pain. No neck or back pain. SKIN: No rash NEUROLOGIC: No headache, vertigo, loss of consciousness, or change in strength/ sensation. ENDOCRINE: No increased thirst. No abnormal weight change HEMATOLOGIC/LYMPHATIC: No anemia, easy bleeding, or history of blood clots. ALLERGIC/IMMUNOLOGIC: No hives or skin allergy. <Raul Shahid - Last Filed: 06/28/19 07:15> *Physical Exam - Vital Signs Last Vital Signs Temp Pulse Resp BP Pulse Ox 98.7 F 118 H 22 H 123/73 100 06/28/19 00:17 06/28/19 00:17 06/28/19 00:17 06/28/19 00:17 06/28/19 00:17 - Physical Exam 06/28/19 00:56 GENERAL: Awake, alert, and fully oriented HEAD: No signs of trauma, normocephalic, atraumatic EYES: PERRLA, EOMI, sclera anicteric, conjunctiva clear ENT: Auricles normal inspection, hearing grossly normal, nares patent, oropharynx clear without exudates. Moist mucosa NECK: Normal ROM, supple, no lymphadenopathy, JVD, or masses LUNGS: Tachypneic, coarse bilaterally, worse on left HEART: Tachycardic, regular, normal S1 and S2, no murmurs, rubs or gallops, peripheral pulses normal and equal bilaterally. ABDOMEN: Soft, nontender, normoactive bowel sounds. No guarding, no rebound. No masses EXTREMITIES: Normal inspection, Normal range of motion, 2+ edema bilaterally. No clubbing or cyanosis. NEUROLOGICAL: Cranial nerves II through XII grossly intact. Normal speech, normal gait, no focal sensorimotor deficits SKIN: Warm, Dry, normal turgor, no rashes or lesions noted. <Raul Shahid - Last Filed: 06/28/19 07:15> - Vital Signs Last Vital Signs Temp Pulse Resp BP Pulse Ox 97.6 F 106 H 20 112/71 100 06/28/19 00:35 06/28/19 06:39 06/28/19 06:39 06/28/19 06:39 06/28/19 06:39 <Elisa Parks - Last Filed: 06/28/19 07:22> ED Treatment Course - LABORATORY CBC & Chemistry Diagram: 06/28/19 00:01 06/28/19 00:01 - RADIOLOGY Radiology Studies Ordered: Category Date Time Status CHEST X-RAY PORTABLE* [RAD] Stat Radiology 06/28/19 00:37 Ordered <Raul Shahid - Last Filed: 06/28/19 07:15> - LABORATORY CBC & Chemistry Diagram: 06/28/19 00:01 06/28/19 00:01 - ADDITIONAL ORDERS Additional order review: Laboratory Results 06/28/19 06/28/19 06/28/19 03:20 00:45 00:03 PT with INR 11.00 INR 0.93 PTT (Actin FS) 23.0 L Anticoagulation Therapy No Result Required. Puncture Site Right radial ABG pH 7.32 L ABG pCO2 at Pt Temp 66.3 H ABG pO2 at Pt Temp 139 H ABG HCO3 33.5 H ABG O2 Sat (Measured) 98.8 H ABG O2 Content 17.7 ABG Base Excess 5.9 H Michael Test Positive Carboxyhemoglobin 0.8 Methemoglobin < 1.0 O2 Delivery Device No Result Required. Oxygen Flow Rate No Result Required. Vent Mode No Result Required. Vent Rate No Result Required. Mechanical Rate No Result Required. Pressure Support Vent No Result Required. Sodium Potassium Chloride Carbon Dioxide Anion Gap BUN Creatinine Est GFR (CKD-EPI)AfAm Est GFR (CKD-EPI)NonAf Random Glucose Lactic Acid Calcium Total Bilirubin AST ALT Alkaline Phosphatase Troponin I 0.02 Total Protein Albumin 06/28/19 06/28/19 00:01 00:00 PT with INR INR PTT (Actin FS) Anticoagulation Therapy Puncture Site ABG pH ABG pCO2 at Pt Temp ABG pO2 at Pt Temp ABG HCO3 ABG O2 Sat (Measured) ABG O2 Content ABG Base Excess Michael Test Carboxyhemoglobin Methemoglobin O2 Delivery Device Oxygen Flow Rate Vent Mode Vent Rate Mechanical Rate Pressure Support Vent Sodium 135 L Potassium 4.5 Chloride 94 L Carbon Dioxide 35 H Anion Gap 6 L BUN 18.1 H Creatinine 0.7 Est GFR (CKD-EPI)AfAm 117.22 Est GFR (CKD-EPI)NonAf 101.14 Random Glucose 117 H Lactic Acid 0.6 Calcium 8.9 Total Bilirubin 0.8 AST 37 ALT 63 H Alkaline Phosphatase 124 H Troponin I Total Protein 6.8 Albumin 3.3 L 06/28/19 00:01 RBC 3.96 L MCV 92.9 MCHC 32.8 RDW 16.8 H MPV 8.0 Neutrophils % 97.8 H Lymphocytes % 0.8 L Monocytes % 1.4 L D Eosinophils % 0.0 D Basophils % 0.0 - Medications Given in the ED: ED Medications Discontinued Medications Generic Name Dose Route Start Last Admin Trade Name Freq PRN Reason Stop Dose Admin Albuterol/Ipratropium 1 amp 06/28/19 01:00 06/28/19 03:05 Duoneb - NEB 06/28/19 01:46 1 amp Q15M VIOLA Administration Sodium Chloride 1,715 mls @ 857.5 mls/hr 06/28/19 00:37 06/28/19 01:18 Normal Saline - 30 ml/kg infuse over 2 hr (1715 ml) 06/28/19 02:36 Not Given IV ONCE ONE Cefepime HCl 1 gm in 50 mls @ 100 mls/hr 06/28/19 00:52 06/28/19 01:18 Maxipime 1 Gm Premix Ivpb IVPB 06/28/19 01:21 Not Given ONCE ONE Cefepime HCl 1 gm/ Dextrose 100 mls @ 200 mls/hr 06/28/19 01:15 06/28/19 01: 52 IVPB 06/28/19 01:44 200 mls/hr ONCE ONE Administration Methylprednisolone Sodium Succinate 125 mg 06/28/19 00:52 06/28/19 01:17 Solu-Medrol - IVPB 06/28/19 00:53 125 mg ONCE ONE Administration Vancomycin HCl 1,000 mg 06/28/19 00:52 06/28/19 00:55 Vancomycin (Pre-Docked) IVPB 06/28/19 00:53 Not Given ONCE ONE Protocol <Elisa Parks - Last Filed: 06/28/19 07:22> Medical Decision Making - Medical Decision Making 06/28/19 00:57 Patient is 64M with history of CABG, COPD on home O2 (on a list for lung transplant), HTN, HLD, HIV, CHF, RA on methotrexate, and anxiety here today with shortness of breath. Tachycardic. Ultrasound shows b-lines on lower left field only, concerning for PNA. Patient recently admitted and working hard to breathe, so will initiate broad workup and cover for possible HAP immediately. BIPAP started. DDx includes, but is not limited to: PNA, PE, viral syndrome, influenza. Afebrile by rectal temp. 06/28/19 02:26 EKG shows sinus tachycardia with rate of 118. RBBB pattern. No st elevations/ depressions. Rightward axis. No significant t wave changes. RBBB pattern is old. CBC normal CMP reassuring. Trop pending. Lactic acid ABG shows chronic compensated respiratory acidosis. Can not explain tachycardia at this time, will do CTA to eval for PE and PNA. Patient's bipap titrated to 30% o2, work of breathing decreased. 06/28/19 07:15 Admitted to tele under Dr Hendrix. <Raul Shahid - Last Filed: 06/28/19 07:15> Discharge - Discharge Information Problems reviewed: Yes - Admission Yes <Raul Shahid - Last Filed: 06/28/19 07:15> - Admission Yes <Elisa Parks - Last Filed: 06/28/19 07:22> - Discharge Information Clinical Impression/Diagnosis: Pneumonia, Acute respiratory failure Condition: Guarded
[2019-06-28] MEDS ORDERED: CEFEPIME HCL/D5W 1 GM/50 ML BAG IVPB ONE (00:52)
[2019-06-28] MEDS ORDERED: VANCOMYCIN 1 GM in D5W (PRE-DOCKED) 1,000 MG/250 ML IVPB ONE ×2 (00:52→15:00)
[2019-06-28] MEDS ORDERED: methylPREDNISolone NA SUCC 125 MG/2 ML VIAL IVPB ONE (00:52)
--- NOTE | 2019-06-28 00:57 | PDOC ---
Attending Attestation - Resident Resident Name: Raul Shahid - ED Attending Attestation I have performed the following: I have examined & evaluated the patient, The case was reviewed & discussed with the resident, I agree w/resident's findings & plan - HPI HPI: 06/28/19 00:56 64yo man with a PMH of CAD s/p CABG, COPD on home O2 (on a list for lung transplant), HTN, HLD, HIV, CHF, RA on methotrexate, and anxiety presents to the emergency department from [facility] with acute onset of SOB and respiratory distress. Hypoxic down to 88% Full code. But there was discussion on goals of care and pt does not elect for CPR or aggressive measures. - Physicial Exam PE: 06/28/19 00:53 Agree with the resident's HPI and PE as documented in the electronic medical record. moderate respiratory distress, malaised appearing, EOMI, PERRL, nl conjunctiva , anicteric; neck supple. lungs with bilateral crackles and diminished breath sounds, left > right. tachypneic. +tachycardic. abdomen soft nontender. no rebound, guarding. Back nontender. GONZALES x4, no focal neuro deficits. 3+ pitting peripheral edema. normal color for ethnicity, WWP. 06/28/19 00:54 - Medical Decision Making 06/28/19 00:54 Vital Signs Temp Pulse Resp BP Pulse Ox 98.7 F 118 H 22 H 123/73 100 06/28/19 00:17 06/28/19 00:17 06/28/19 00:17 06/28/19 00:17 06/28/19 00:17 ddx, PE, ACS, arrhythmia, dehydration, viral s yndrome, flu, pneumonia, anemia, electrolyte/metabolic derangements Laboratory results with mild leukocytosis nonspecific. Electrolytes LFTs and creatinine are within normal limits. Negative flu. Chest x-ray without any focal infiltrate. ABG with chronic respiratory acidosis with bicarb compensation. pH is 7.32 with only CO2 of 66. Patient getting his ventilator support via BiPAP. Remains on BiPAP for his work of breathing which is much improved, oxygenating appropriately. Tachycardia is downtrending. Rectal temperature is negative, will treat with IV antibiotics for healthcare associated pneumonia given isolated B-lines seen on bedside ultrasound, vancomycin and cefepime, low risk of cross-reactivity with penicillins and cephalosporins especially with fourth-generation agent. flu neg cultures ordered and pending 06/28/19 03:26 06/28/19 04:36 CTA prelim neg for pna. blebs. no PE. atelectasis ?pna vs atelectasis covered for PNA admit to Dr Hendrix admit tele for acute on chronic respiratory failure, likely combo COPD/asthma exacerbation, pneumonia. Heart Score/ECG Review #1 ECG reviewed & interpreted by me at: 00:15 General ECG Interpretation: Sinus Rhythm, Normal Intervals Compared to previous ECG there are: No significant change 06/28/19 00:56 EKG sinus tachycardia 118 bpm, right bundle branch block present, no interval abnormalities, wide QRS, ST and T wave segments and morphology normal. Nonspecific T wave abnormalities likely rate related vs chronic.
[2019-06-28] MEDS ORDERED: ALBUTEROL SO4 2.5/IPRATROPIUM 0.5 INH SOL 3 ML VIAL.NEB. NEB ONE (01:12)
[2019-06-28] MEDS ORDERED: methylPREDNISolone NA SUCC 125 MG/2 ML VIAL ONE (01:12)
[2019-06-28 01:14] LABS: ARTERIAL BLD GAS O2 SATURATION 98.8 % (95-98); ARTERIAL BLOOD GAS BASE EXCESS 5.9 meq/l (-2-2); ARTERIAL BLOOD GAS PCO2 66.3 mmHg (35-45); ARTERIAL BLOOD GAS PO2 139 mmHg (80-100); ARTERIAL BLOOD GAS pH 7.32 (7.35-7.45); CARBOXYHEMOGLOBIN 0.8 % (0-2)
[2019-06-28] MEDS ORDERED: CEFEPIME 1 GM in DEXTROSE 5%-WATER 100 ML IVPB ONE (01:15)
[2019-06-28 01:16] LABS: ALLENS TEST POSITIVE
[2019-06-28] MEDS: ALBUTEROL SO4 2.5/IPRATROPIUM 0.5 INH SOL 3 ML VIAL.NEB. NEB SCH ×6 (01:24→20:18)
[2019-06-28 01:27] LABS: HEMATOCRIT 36.8 % (35.4-49); HEMOGLOBIN 12.1 GM/dL (11.7-16.9); LYMPH % 0.8 % (8-40); MCH 30.5 pg (25.7-33.7); MCHC 32.8 g/dl (32.0-35.9); MEAN CELL VOLUME 92.9 fl (80-96); MONO % 1.4 % (3.8-10.2); NEUT % 97.8 % (42.8-82.8); PLATELET COUNT 220 K/MM3 (134-434); RBC 3.96 M/mm3 (4.00-5.60); RDW 16.8 % (11.9-15.9); WHITE BLOOD COUNT 10.3 K/mm3 (4.0-10.0)
[2019-06-28 01:55] LABS: ALBUMIN 3.3 g/dl (3.4-5.0); BILIRUBIN,TOTAL 0.8 mg/dL (0.2-1); BLOOD UREA NITROGEN 18.1 mg/dL (7-18); CALCIUM 8.9 mg/dL (8.5-10.1); CREATININE 0.7 mg/dL (0.55-1.3); POTASSIUM 4.5 mmol/L (3.5-5.1); TOT PROT 6.8 g/dl (6.4-8.2)
[2019-06-28 04:03] LABS: INR 0.93 (0.83-1.09)
[2019-06-28 06:18] LABS: PLATELET ESTIMATE ADEQUATE
[2019-06-28 08:14] LABS: URINE APPEARANCE CLEAR; URINE BILIRUBIN NEGATIVE (NEGATIVE); URINE COLOR YELLOW; URINE GLUCOSE (UA) NEGATIVE (NEGATIVE); URINE KETONE NEGATIVE (NEGATIVE); URINE PROTEIN TRACE (NEGATIVE)
[2019-06-28 08:15] LABS: URINE LEUK ESTERASE NEGATIVE (NEGATIVE); URINE NITRITE NEGATIVE (NEGATIVE)
[2019-06-28 08:28] LABS: EPI CELLS 0.7 /HPF (0-5/HPF); HYALINE CASTS 2.58 /lpf (0-8); URINE BACTERIA 0.8 /hpf (NEGATIVE); URINE RBC 1.3 /hpf (0-4); URINE WBC 0.5 /hpf (0-5)
[2019-06-28] MEDS ORDERED: ALBUTEROL SO4 8 GM HFA INHALER IH PRN (08:42)
[2019-06-28] MEDS ORDERED: ALBUTEROL SO4 2.5/IPRATROPIUM 0.5 INH SOL 3 ML VIAL.NEB. NEB PRN (08:48)
[2019-06-28] MEDS: clonazePAM 0.5 MG TABLET PO SCH ×2 (09:16→21:29)
[2019-06-28] MEDS: methylPREDNISolone NA SUCC 40 MG/1 ML VIAL IVPUSH SCH ×2 (09:16→17:37)
[2019-06-28] MEDS: FOLIC ACID 1 MG TABLET (FP) PO SCH (09:16)
[2019-06-28] MEDS: RAMIPRIL 5 MG CAPSULE (FP) PO SCH (09:16)
[2019-06-28] MEDS: METHOTREXATE 2.5 MG TABLET PO SCH (09:46)
[2019-06-28] MEDS ORDERED: HYDROXYCHLOROQUINE SO4 200 MG TABLET (FP) PO SCH (10:00)
[2019-06-28] MEDS: BUDESONIDE/FORMETEROL FUMARATE 160/4.5 mcg INHALER IH SCH ×2 (10:56→21:29)
--- NOTE | 2019-06-28 11:30 | CON.PULM ---
Consult Consult Specialty:: Pulmonary Referred by:: KETTY Reason for Consultation:: SOB - History of Present Illness Chief Complaint: SOB/COUGH History of Present Illness: Patient is 64M with history of CABG, COPD on home O2 (considered for lung transplant), HTN, HLD, HIV, CHF, RA on methotrexate, and anxiety admitted via ED complaining of 1 day of worsening shortness of breath. He states that it has gotten progressively harder for him to breathe . Endorses associated cough. Denies nausea, vomiting, fevers, chills, chest pain, and abdominal pain. Denies dysuria, constipation, diarrhea. Endorses a mild increase in the amount of leg swelling. Patient was recently intubated in the ED for hypercarbic respiratory failure and was discharged to [facility]. 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 Cardio/Vascular: Yes: CAD, HTN, Hyperlipdemia Pulmonary: Yes: COPD, O2 Dependent, Other (bullous emphysema) Gastrointestinal: No: Ascites Heme/Onc: Yes: Anemia Infectious Disease: Yes: HIV Psych: Yes: Addictions (heroin), Anxiety Musculoskeletal: Yes: Chronic low back pain Rheumatology: Yes: Rheumatoid Arthritis - Past Surgical History Past Surgical History: Yes: CABG, Stent - Alcohol/Substance Use Hx Alcohol Use: No History of Substance Use: reports: None - Smoking History Smoking history: Former smoker Have you smoked in the past 12 months: No Aproximately how many cigarettes per day: 0 If you are a former smoker, when did you quit?: 3YRS Home Medications - Allergies Allergies/Adverse Reactions: Allergies Allergy/AdvReac Type Severity Reaction Status Date / Time Penicillins Allergy Severe Rash Verified 06/28/19 00:21 seafood Allergy Severe Rash Uncoded 06/28/19 00:21 - Home Medications Home Medications: Ambulatory Orders Albuterol Sulfate Inhaler - [Ventolin Hfa Inhaler -] 1 - 2 inh PO Q4H PRN Budesonide/Formeterol Fumarate [SYMBICORT 160/4.5mcg -] 1 inh PO BID 05/25/18 Clopidogrel Bisulfate [Plavix] 75 mg PO DAILY 05/25/18 Folic Acid 1 mg PO DAILY 05/25/18 Furosemide [Lasix] 40 mg PO DAILY 05/25/18 Hydroxychloroquine Sulfate [Plaquenil] 200 mg PO BID 05/25/18 Methotrexate [Mexate -] 15 mg PO Q7D 05/25/18 Ramipril [Altace] 5 mg PO DAILY 05/25/18 Simvastatin [Zocor -] 40 mg PO HS 05/25/18 Clonazepam 0.5 mg PO BID 06/04/19 Atorvastatin Calcium 20 mg PO HS 06/28/19 Fluticasone/Umeclidin/Vilanter [Trelegy Ellipta 100-62.5-25] 1 each IH ASDIR 07/17 Ramipril 5 mg PO DAILY 06/28/19 Family Medical History Family History: Unremarkable Review of Systems - Review of Systems Constitutional: reports: Lethargy, Loss of Appetite. denies: Fever Eyes: denies: Double Vision HENT: denies: Difficult Swallowing, Ear Discharge Neck: denies: Decreased ROM Cardiovascular: reports: Edema, Shortness of Breath. denies: Chest Pain Respiratory: reports: Cough, Exercise Intolerance, SOB on Exertion, Wheezing. denies: Hemoptysis, Orthopnea Gastrointestinal: denies: Abdominal Pain Genitourinary: denies: Burning Physical Exam Vital Sings: Vital Signs Temperature 97.6 F 06/28/19 08:32 Pulse Rate 118 H 06/28/19 10:00 Respiratory Rate 26 H 06/28/19 10:00 Blood Pressure 129/90 06/28/19 08:32 O2 Sat by Pulse Oximetry (%) 100 06/28/19 09:00 Constitutional: Yes: Anxious Eyes: Yes: EOM Intact HENT: Yes: Normocephalic Neck: Yes: Trachea Midline Cardiovascular: Yes: Regular Rate and Rhythm, S1, S2 Respiratory: Yes: Diminished Gastrointestinal: Yes: Normal Bowel Sounds, Soft Edema: No Integumentary: Yes: WNL Neurological: Yes: Alert Labs: CBC, BMP 06/28/19 00:01 06/28/19 00:01 ABG Results ABG pH 7.32 (7.35-7.45) L 06/28/19 00:45 ABG pCO2 at Pt Temp 66.3 mmHg (35-45) H 06/28/19 00:45 ABG pO2 at Pt Temp 139 mmHg (80-100) H 06/28/19 00:45 ABG HCO3 33.5 mmol/L (22-27) H 06/28/19 00:45 ABG O2 Sat (Measured) 98.8 % (95-98) H 06/28/19 00:45 ABG O2 Content 17.7 % vol 06/28/19 00:45 ABG Base Excess 5.9 meq/l (-2-2) H 06/28/19 00:45 rest reviewed Imaging - Results Chest X-ray: Report Reviewed, Image Reviewed Cat Scan: Image Reviewed Problem List - Problems (1) Acute respiratory failure Code(s): J96.00 - ACUTE RESPIRATORY FAILURE, UNSP W HYPOXIA OR HYPERCAPNIA (2) Pneumonia Code(s): J18.9 - PNEUMONIA, UNSPECIFIED ORGANISM (3) Acute on chronic respiratory failure with hypoxia and hypercapnia Code(s): J96.21 - ACUTE AND CHRONIC RESPIRATORY FAILURE WITH HYPOXIA; J96.22 - ACUTE AND CHRONIC RESPIRATORY FAILURE WITH HYPERCAPNIA (4) Anxiety and depression Code(s): F41.9 - ANXIETY DISORDER, UNSPECIFIED; F32.9 - MAJOR DEPRESSIVE DISORDER, SINGLE EPISODE, UNSPECIFIED (5) COPD (chronic obstructive pulmonary disease) Code(s): J44.9 - CHRONIC OBSTRUCTIVE PULMONARY DISEASE, UNSPECIFIED Qualifiers: COPD type: emphysema Emphysema type: unspecified Qualified Code(s): J43.9 - Emphysema, unspecified (6) Cough Code(s): R05 - COUGH (7) Edema Code(s): R60.9 - EDEMA, UNSPECIFIED Qualifiers: Edema type: unspecified Qualified Code(s): R60.9 - Edema, unspecified (8) Rheumatoid arthritis Code(s): M06.9 - RHEUMATOID ARTHRITIS, UNSPECIFIED Assessment/Plan Acute on chronic hypoxemic/hypercapneic resp failure CTA (official report pending) no obvious PE/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 base COPD on home 02 HIV/RA on Methotrexate Referred for lung transplant [facility] (patient did not submit paperwork) CABG/HTN/HLD/CHF NIPPV HS/PRN STEROIDS/BRONCHODILATORS INFLU SCREEN ID EVAL FOR HIV OBTAIN OFFICIAL REPORT CTA WILL FOLLOW Leo DAMON MD
--- NOTE | 2019-06-28 13:59 | HP ---
Admitting History and Physical - Primary Care Physician PCP: Yohana Hendrix - Admission Chief Complaint: worsening SOB History of Present Illness: 64 yrs old man multiple Co-morbidities H/O HTN< CAD s/p CABG, HfpEF, Advanced COPD on Home O2, RA on Methotrexate ( HIV -ve 06/08/2019), recently discharged to [place] after treated for Hypercarbic respiratory failure to [place] present with 1 day H/O worsening SOB /Cough and Yellow expectoration with Hypoxia, in the Ed put on BiPAP, received IV Solumedrol and Abx , ? Pneumonia in CXR , now weaned off BipAP saturating well on NC 3 Ltr feels some improvement, denies any fever , chills, nausea, vomiting or diarrhea, evaluated by Pulmonary consult. History Source: Patient - Past Medical History NNP: No: Alzheimer's Cardiovascular: Yes: CAD, HTN, Hyperlipdemia Pulmonary: Yes: COPD, O2 Dependent, Other (bullous emphysema) Gastrointestinal: No: Ascites Heme/Onc: Yes: Anemia Psych: Yes: Addictions (heroin), Anxiety Musculoskeletal: Yes: Chronic low back pain Rheumatology: Yes: Rheumatoid Arthritis - Past Surgical History Past Surgical History: Yes: CABG, Stent - Smoking History Smoking history: Former smoker Have you smoked in the past 12 months: No Aproximately how many cigarettes per day: 0 If you are a former smoker, when did you quit?: 3YRS - Alcohol/Substance Use Hx Alcohol Use: No History of Substance Use: reports: None Home Medications - Allergies Allergies/Adverse Reactions: Allergies Allergy/AdvReac Type Severity Reaction Status Date / Time Penicillins Allergy Severe Rash Verified 06/28/19 00:21 seafood Allergy Severe Rash Uncoded 06/28/19 00:21 - Home Medications Home Medications: Ambulatory Orders Albuterol Sulfate Inhaler - [Ventolin Hfa Inhaler -] 1 - 2 inh PO Q4H PRN Budesonide/Formeterol Fumarate [SYMBICORT 160/4.5mcg -] 1 inh PO BID 05/25/18 Clopidogrel Bisulfate [Plavix] 75 mg PO DAILY 05/25/18 Folic Acid 1 mg PO DAILY 05/25/18 Furosemide [Lasix] 40 mg PO DAILY 05/25/18 Hydroxychloroquine Sulfate [Plaquenil] 200 mg PO BID 05/25/18 Methotrexate [Mexate -] 15 mg PO Q7D 05/25/18 Ramipril [Altace] 5 mg PO DAILY 05/25/18 Simvastatin [Zocor -] 40 mg PO HS 05/25/18 Clonazepam 0.5 mg PO BID 06/04/19 Atorvastatin Calcium 20 mg PO HS 06/28/19 Fluticasone/Umeclidin/Vilanter [Trelegy Ellipta 100-62.5-25] 1 each IH ASDIR 07/17 Ramipril 5 mg PO DAILY 06/28/19 Family Medical History Family Hx Cardiac Disorders: Grandmother (paternal) Review of Systems - Review of Systems Constitutional: reports: Lethargy, Loss of Appetite, Weakness. denies: Fever Eyes: denies: Blurred Vision, Double Vision HENT: denies: Difficult Swallowing, Ear Discharge, Ear Pain Neck: denies: Decreased ROM, Lumps, Pain on Movement Cardiovascular: reports: Shortness of Breath. denies: Chest Pain, Edema, Palpitations Respiratory: reports: Cough, Exercise Intolerance, SOB, SOB on Exertion Gastrointestinal: denies: Abdominal Pain, Bloating, Constipation, Diarrhea Genitourinary: denies: Discharge, Dysuria, Flank Pain, Frequency Breasts: denies: Breast Implants Musculoskeletal: reports: Joint Swelling. denies: Back Pain, Crepitus Integumentary: denies: Blister, Bruising, Change in Color Neurological: denies: Change in LOC, Change in Speech, Confusion Endocrine: denies: Excessive Sweating, Flushing, Increased Hunger Psychiatric: reports: Anxiety. denies: Altered Sleep Pattern Physical Examination Vital Signs: Vital Signs Temperature 98.3 F 06/28/19 12:00 Pulse Rate 115 H 06/28/19 12:00 Respiratory Rate 24 H 06/28/19 12:00 Blood Pressure 123/63 06/28/19 12:00 O2 Sat by Pulse Oximetry (%) 99 06/28/19 12:03 Constitutional: Yes: Mild Distress Eyes: Yes: Conjunctiva Clear, EOM Intact, PERRL HENT: Yes: Normocephalic Neck: Yes: Trachea Midline. No: Decreased ROM, Lymphadenopathy Cardiovascular: Yes: Tachycardia, S1. No: JVD Respiratory: Yes: Regular, Wheezes Gastrointestinal: Yes: Normal Bowel Sounds, Soft Musculoskeletal: Yes: Joint Stiffness, Joint Swelling. No: Back Pain Extremities: No: Calf Tenderness, Cold, Delayed Capillary Refill Edema: RUE: Trace, LLE: Trace Neurological: Yes: WNL, Alert, Oriented ...Motor Strength: LUE, LLE Psychiatric: Yes: Alert, Oriented Labs: CBC,CMP WBC 10.3 K/mm3 (4.0-10.0) H 06/28/19 00:01 RBC 3.96 M/mm3 (4.00-5.60) L 06/28/19 00:01 Hgb 12.1 GM/dL (11.7-16.9) 06/28/19 00:01 Hct 36.8 % (35.4-49) 06/28/19 00: MCV 92.9 fl (80-96) 06/28/19 00: MCH 30.5 pg (25.7-33.7) 06/28/19 00: MCHC 32.8 g/dl (32.0-35.9) 06/28/19 00: RDW 16.8 % (11.9-15.9) H 06/28/19 00:01 Plt Count 220 K/MM3 (134-434) 06/28/19 00:01 MPV 8.0 fl (7.5-11.1) 06/28/19 00:01 Absolute Neuts (auto) 10.1 K/mm3 (1.5-8.0) H 06/28/19 00:01 Total Counted 100 06/28/19 00:01 Neutrophils % 97.8 % (42.8-82.8) H 06/28/19 00:01 Neutrophils % (Manual) 95.0 % (42.8-82.8) H 06/28/19 00:01 Band Neutrophils % 3.0 % 06/28/19 00:01 Lymphocytes % 0.8 % (8-40) L 06/28/19 00:01 Lymphocytes % (Manual) 1.0 % (8-40) L D 06/28/19 00:01 Monocytes % 1.4 % (3.8-10.2) L D 06/28/19 00:01 Monocytes % (Manual) 1 % (3.8-10.2) L D 06/28/19 00:01 Eosinophils % 0.0 % (0-4.5) D 06/28/19 00: Basophils % 0.0 % (0-2.0) 06/28/19 00: Nucleated RBC % 0 % (0-0) 06/28/19 00: Hypochromia 1+ 06/28/19 00: Platelet Estimate Adequate 06/28/19 00: Platelet Comment No clotting detected 06/28/19 00:01 Sodium 135 mmol/L (136-145) L 06/28/19 00: Potassium 4.5 mmol/L (3.5-5.1) 06/28/19 00: Chloride 94 mmol/L (98-107) L 06/28/19 00:01 Carbon Dioxide 35 mmol/L (21-32) H 06/28/19 00:01 Anion Gap 6 MMOL/L (8-16) L 06/28/19 00:01 BUN 18.1 mg/dL (7-18) H 06/28/19 00:01 Creatinine 0.7 mg/dL (0.55-1.3) 06/28/19 00: Est GFR (CKD-EPI)AfAm 117.22 06/28/19 00:01 Est GFR (CKD-EPI)NonAf 101.14 06/28/19 00:01 Random Glucose 117 mg/dL (74-106) H 06/28/19 00:01 Lactic Acid 0.6 mmol/L (0.4-2.0) 06/28/19 00:00 Calcium 8.9 mg/dL (8.5-10.1) 06/28/19 00:01 Total Bilirubin 0.8 mg/dL (0.2-1) 06/28/19 00: AST 37 U/L (15-37) 06/28/19 00: ALT 63 U/L (13-61) H 06/28/19 00:01 Alkaline Phosphatase 124 U/L (45-117) H 06/28/19 00:01 Troponin I 0.02 ng/ml (0.00-0.05) 06/28/19 00:03 Total Protein 6.8 g/dl (6.4-8.2) 06/28/19 00:01 Albumin 3.3 g/dl (3.4-5.0) L 06/28/19 00:01 Imaging - Results Chest X-ray: Report Reviewed (Basal infiltrate /atelctasis) Cat Scan: Report Reviewed (No PE) EKG: Report Reviewed (RBBB sinus tachycardia) Problem List - Problems (1) Acute on chronic respiratory failure with hypoxemia Assessment/Plan: Continue IV methylprednisolone 40 mg 3 times daily, bronchodilator and pulmonary input Problems reviewed: Yes Code(s): J96.21 - ACUTE AND CHRONIC RESPIRATORY FAILURE WITH HYPOXIA (2) Pneumonia Assessment/Plan: CT chest showed right lower lobe pneumonia, put on ceftriaxone 1 g daily and doxycycline ID consult, sputum culture and follow-up procalcitonin Problems reviewed: Yes Code(s): J18.9 - PNEUMONIA, UNSPECIFIED ORGANISM (3) COPD exacerbation Assessment/Plan: Severe COPD patient was referred for lung transplant, follow-up pulmonary recommendations, bronchodilators and IV hydration. Problems reviewed: Yes Code(s): J44.1 - CHRONIC OBSTRUCTIVE PULMONARY DISEASE W (ACUTE) EXACERBATION (4) Diastolic CHF Assessment/Plan: Compensated continue Lasix 40 mg daily Problems reviewed: Yes Code(s): I50.30 - UNSPECIFIED DIASTOLIC (CONGESTIVE) HEART FAILURE Qualifiers: Heart failure chronicity: unspecified Qualified Code(s): I50.30 - Unspecified diastolic (congestive) heart failure (5) Hypercholesterolemia Assessment/Plan: Continue statin Problems reviewed: Yes Code(s): E78.0 - PURE HYPERCHOLESTEROLEMIA * DO NOT USE *
[2019-06-28] MEDS ORDERED: ACETAMINOPHEN 325 MG TABLET (FP) PO PRN (14:11)
[2019-06-28] MEDS ORDERED: VANCOMYCIN 1,000 MG in DEXTROSE 5%-WATER - 250 ML IVPB SCH (14:15)
[2019-06-28] MEDS: FUROSEMIDE 40 MG/4 ML INJECTABLE VIAL IVPUSH SCH (15:38)
[2019-06-28 16:57] LABS: HEMATOCRIT 35.3 % (35.4-49); HEMOGLOBIN 11.4 GM/dL (11.7-16.9); LYMPH % 2.2 % (8-40); MCH 30.2 pg (25.7-33.7); MCHC 32.4 g/dl (32.0-35.9); MEAN CELL VOLUME 93.2 fl (80-96); MEAN PLT VOLUME 7.9 fl (7.5-11.1); MONO % 7.3 % (3.8-10.2); NEUT % 90.5 % (42.8-82.8); PLATELET COUNT 210 K/MM3 (134-434); RBC 3.79 M/mm3 (4.00-5.60); RDW 16.7 % (11.9-15.9); WHITE BLOOD COUNT 7.8 K/mm3 (4.0-10.0)
--- NOTE | 2019-06-28 17:35 | EKG ---
Test Reason : Blood Pressure : / mmHG Vent. Rate : 118 BPM Atrial Rate : 118 BPM P-R Int : 114 ms QRS Dur : 128 ms QT Int : 344 ms P-R-T Axes : 088 119 056 degrees QTc Int : 482 ms SINUS TACHYCARDIA RIGHT BUNDLE BRANCH BLOCK , PLUS RIGHT VENTRICULAR HYPERTROPHY ABNORMAL ECG WHEN COMPARED WITH ECG OF 12-JUN-2019 15:32, Baseline wander BASELINE ARTIFACT Confirmed by JOANNE RAMOS, MO ([id number]) on 06/28/2019 5:34:58 PM Referred By: Confirmed By:MO RUBIO MD
[2019-06-28] MEDS: ATORVASTATIN CA 20 MG TABLET (FP) PO SCH (21:29)
[2019-06-28] MEDS ORDERED: CEFEPIME HCL/D5W 1 GM/50 ML BAG IVPB SCH (22:00)
[2019-06-28] MEDS: CEFEPIME 1 GM in DEXTROSE 5%-WATER 100 ML IVPB SCH (22:17)
[2019-06-29] MEDS: methylPREDNISolone NA SUCC 40 MG/1 ML VIAL IVPUSH SCH ×3 (00:59→17:33)
[2019-06-29 06:20] LABS: HEMATOCRIT 32.9 % (35.4-49); HEMOGLOBIN 10.9 GM/dL (11.7-16.9); LYMPH % 5.5 % (8-40); MCH 30.4 pg (25.7-33.7); MCHC 33.1 g/dl (32.0-35.9); MEAN CELL VOLUME 91.9 fl (80-96); MEAN PLT VOLUME 7.4 fl (7.5-11.1); MONO % 13.1 % (3.8-10.2); NEUT % 81.4 % (42.8-82.8); PLATELET COUNT 188 K/MM3 (134-434); RBC 3.58 M/mm3 (4.00-5.60); RDW 16.6 % (11.9-15.9); WHITE BLOOD COUNT 6.5 K/mm3 (4.0-10.0)
[2019-06-29 07:03] LABS: BLOOD UREA NITROGEN 17.6 mg/dL (7-18); CALCIUM 8.9 mg/dL (8.5-10.1); CREATININE 0.7 mg/dL (0.55-1.3); POTASSIUM 5.1 mmol/L (3.5-5.1)
[2019-06-29] MEDS: ALBUTEROL SO4 2.5/IPRATROPIUM 0.5 INH SOL 3 ML VIAL.NEB. NEB SCH ×4 (08:37→20:45)
[2019-06-29] MEDS ORDERED: CEFEPIME HCL 1 GM VIAL (RESTRICTED TO ID) ONE (09:04)
[2019-06-29] MEDS ORDERED: DEXTROSE 5%-WATER 100 ML IVPB ONE ×2 (09:04→21:34)
[2019-06-29] MEDS: FUROSEMIDE 40 MG/4 ML INJECTABLE VIAL IVPUSH SCH (09:21)
[2019-06-29] MEDS: RAMIPRIL 5 MG CAPSULE (FP) PO SCH (09:21)
[2019-06-29] MEDS: ENOXAPARIN NA (PORCINE) 40 MG/0.4 ML DISP.SYRIN SQ SCH (09:21)
[2019-06-29] MEDS: FOLIC ACID 1 MG TABLET (FP) PO SCH (09:21)
[2019-06-29] MEDS: clonazePAM 0.5 MG TABLET PO SCH ×2 (09:21→22:00)
[2019-06-29] MEDS: CEFEPIME 1 GM in DEXTROSE 5%-WATER 100 ML IVPB SCH (09:22)
[2019-06-29] MEDS: BUDESONIDE/FORMETEROL FUMARATE 160/4.5 mcg INHALER IH SCH ×2 (09:31→22:01)
--- NOTE | 2019-06-29 10:40 | PN ---
Progress Note, Physician History of Present Illness: pulmonary alert,still dyspneic at rest - Current Medication List Current Medications: Active Medications Acetaminophen (Tylenol -) 650 mg PO Q4H PRN PRN Reason: FEVER Albuterol Sulfate (Ventolin Hfa Inhaler -) 2 puff IH Q4H PRN PRN Reason: SHORT OF BREATH/WHEEZING Albuterol/Ipratropium (Duoneb -) 1 amp NEB RQID [facility] Last Admin: 06/29/19 08:37 Dose: 1 amp Atorvastatin Calcium (Lipitor -) 20 mg PO HS [facility] Last Admin: 06/28/19 21:29 Dose: 20 mg Budesonide/Formoterol Fumarate (Symbicort 160/4.5mcg -) 1 puff IH BID [facility] Last Admin: 06/29/19 09:31 Dose: 1 puff Clonazepam (Klonopin -) 0.5 mg PO BID [facility] Last Admin: 06/29/19 09:21 Dose: 0.5 mg Enoxaparin Sodium (Lovenox -) 40 mg SQ DAILY [facility] Last Admin: 06/29/19 09:21 Dose: 40 mg Folic Acid (Folic Acid -) 1 mg PO DAILY [facility] Last Admin: 06/29/19 09:21 Dose: 1 mg Furosemide (Lasix Injection -) 40 mg IVPUSH DAILY [facility] Last Admin: 06/29/19 09:21 Dose: 40 mg Cefepime HCl (Maxipime 1 Gm Premix Ivpb) 1 gm in 50 mls @ 100 mls/hr IVPB BID [facility]; Protocol Vancomycin HCl 1,000 mg/ (Dextrose) 250 mls @ 200 mls/hr IVPB Q24H [facility]; Protocol Methotrexate (Mexate -) 15 mg PO Q7D@1000 [facility] Last Admin: 06/28/19 09:46 Dose: 15 mg Methylprednisolone Sodium Succinate (Solu-Medrol -) 40 mg IVPUSH Q8H-IV [facility] Last Admin: 06/29/19 09:21 Dose: 40 mg Ramipril (Altace -) 5 mg PO DAILY [facility] Last Admin: 06/29/19 09:21 Dose: 5 mg - Objective Vital Signs: Vital Signs Temperature 97.5 F L 06/29/19 06:00 Pulse Rate 103 H 06/29/19 06:00 Respiratory Rate 20 06/29/19 06:00 Blood Pressure 112/67 06/29/19 06:00 O2 Sat by Pulse Oximetry (%) 92 L 06/29/19 08:36 Constitutional: Yes: Calm, Thin, Other (dyspneic) Eyes: Yes: WNL HENT: Yes: WNL Neck: Yes: WNL Cardiovascular: Yes: Regular Rate and Rhythm, S1, S2 Respiratory: Yes: Diminished, Wheezes (few wheezes) Gastrointestinal: Yes: Normal Bowel Sounds, Soft Extremities: Yes: WNL Edema: Yes Labs: CBC, BMP 06/29/19 05:30 06/29/19 05:30 INR, PTT INR 0.93 (0.83-1.09) 06/28/19 03:20 Assessment/Plan Problem List - Problems (1) Acute respiratory failure Code(s): J96.00 - ACUTE RESPIRATORY FAILURE, UNSP W HYPOXIA OR HYPERCAPNIA (2) Pneumonia Code(s): J18.9 - PNEUMONIA, UNSPECIFIED ORGANISM (3) Acute on chronic respiratory failure with hypoxia and hypercapnia Code(s): J96.21 - ACUTE AND CHRONIC RESPIRATORY FAILURE WITH HYPOXIA; J96.22 - ACUTE AND CHRONIC RESPIRATORY FAILURE WITH HYPERCAPNIA (4) Anxiety and depression Code(s): F41.9 - ANXIETY DISORDER, UNSPECIFIED; F32.9 - MAJOR DEPRESSIVE DISORDER, SINGLE EPISODE, UNSPECIFIED (5) COPD (chronic obstructive pulmonary disease) Code(s): J44.9 - CHRONIC OBSTRUCTIVE PULMONARY DISEASE, UNSPECIFIED Qualifiers: COPD type: emphysema Emphysema type: unspecified Qualified Code(s): J43.9 - Emphysema, unspecified (6) Cough Code(s): R05 - COUGH (7) Edema Code(s): R60.9 - EDEMA, UNSPECIFIED Qualifiers: Edema type: unspecified Qualified Code(s): R60.9 - Edema, unspecified (8) Rheumatoid arthritis Code(s): M06.9 - RHEUMATOID ARTHRITIS, UNSPECIFIED 8 LLL nodule Assessment/Plan Acute on chronic hypoxemic/hypercapneic resp failure COPD on home 02 HIV/RA on Methotrexate Pneumonia Referred for lung transplant [facility] (patient did not submit paperwork) CABG HTN HLD CHF LLL NODULE NIPPV HS/PRN STEROIDS BRONCHODILATORS F/U CHEST CT OUTPATIENT DR GONZALEZ
--- NOTE | 2019-06-29 14:58 | PN ---
Progress Note, Physician Chief Complaint: Patient will improve now saturating well on home O2 - Current Medication List Current Medications: Active Medications Acetaminophen (Tylenol -) 650 mg PO Q4H PRN PRN Reason: FEVER Albuterol Sulfate (Ventolin Hfa Inhaler -) 2 puff IH Q4H PRN PRN Reason: SHORT OF BREATH/WHEEZING Albuterol/Ipratropium (Duoneb -) 1 amp NEB RQID [facility] Last Admin: 06/29/19 12:12 Dose: 1 amp Atorvastatin Calcium (Lipitor -) 20 mg PO HS [facility] Last Admin: 06/28/19 21:29 Dose: 20 mg Budesonide/Formoterol Fumarate (Symbicort 160/4.5mcg -) 1 puff IH BID [facility] Last Admin: 06/29/19 09:31 Dose: 1 puff Clonazepam (Klonopin -) 0.5 mg PO BID [facility] Last Admin: 06/29/19 09:21 Dose: 0.5 mg Enoxaparin Sodium (Lovenox -) 40 mg SQ DAILY [facility] Last Admin: 06/29/19 09:21 Dose: 40 mg Folic Acid (Folic Acid -) 1 mg PO DAILY [facility] Last Admin: 06/29/19 09:21 Dose: 1 mg Furosemide (Lasix Injection -) 40 mg IVPUSH DAILY [facility] Last Admin: 06/29/19 09:21 Dose: 40 mg Ceftriaxone Sodium 1 gm/ (Dextrose) 50 mls @ 100 mls/hr IVPB DAILY [facility] Doxycycline Hyclate 100 mg/ (Dextrose) 100 mls @ 100 mls/hr IVPB BID [facility] Methotrexate (Mexate -) 15 mg PO Q7D@1000 [facility] Last Admin: 06/28/19 09:46 Dose: 15 mg Methylprednisolone Sodium Succinate (Solu-Medrol -) 40 mg IVPUSH Q8H-IV [facility] Last Admin: 06/29/19 09:21 Dose: 40 mg Ramipril (Altace -) 5 mg PO DAILY [facility] Last Admin: 06/29/19 09:21 Dose: 5 mg - Objective Vital Signs: Vital Signs Temperature 97.6 F 06/29/19 10:00 Pulse Rate 100 H 06/29/19 10:00 Respiratory Rate 18 06/29/19 10:00 Blood Pressure 123/71 06/29/19 10:00 O2 Sat by Pulse Oximetry (%) 95 06/29/19 12:10 General: Young male in mild respiratory distress. HEENT; mucous membranes moist, no anemia, no jaundice, PERRLA, no nystagmus Neck: No JVD, supple, no bruit, thyroid palpably normal, normal carotid pulsations. Chest: Nontender, bilateral wheezing. CVS: S1-S2 regularno murmur/gallop/rub Abdomen: Nondistended, soft, bowel sounds present. Extremities: + edema., No calf tenderness, pulses present DIRECTOR DIABETES: AO X3 , no gross motor sensory deficit Labs: CBC, BMP 06/29/19 05:30 06/29/19 05:30 INR, PTT INR 0.93 (0.83-1.09) 06/28/19 03:20 Problem List - Problems (1) Acute on chronic respiratory failure with hypoxemia Assessment/Plan: Continue IV methylprednisolone 40 mg 3 times daily, bronchodilator and pulmonary input Code(s): J96.21 - ACUTE AND CHRONIC RESPIRATORY FAILURE WITH HYPOXIA (2) Pneumonia Assessment/Plan: CT chest showed right lower lobe pneumonia, put on ceftriaxone 1 g daily and doxycycline ID consult, sputum culture and follow-up procalcitonin Code(s): J18.9 - PNEUMONIA, UNSPECIFIED ORGANISM (3) COPD exacerbation Assessment/Plan: Severe COPD patient was referred for lung transplant, follow-up pulmonary recommendations, bronchodilators and IV hydration. Code(s): J44.1 - CHRONIC OBSTRUCTIVE PULMONARY DISEASE W (ACUTE) EXACERBATION (4) Diastolic CHF Assessment/Plan: Compensated continue Lasix 40 mg daily Code(s): I50.30 - UNSPECIFIED DIASTOLIC (CONGESTIVE) HEART FAILURE Qualifiers: Heart failure chronicity: unspecified Qualified Code(s): I50.30 - Unspecified diastolic (congestive) heart failure (5) Hypercholesterolemia Assessment/Plan: Continue statin Code(s): E78.0 - PURE HYPERCHOLESTEROLEMIA * DO NOT USE *
[2019-06-29] MEDS ORDERED: cefTRIAXone SODIUM 1 GM VIAL ONE (15:43)
[2019-06-29] MEDS ORDERED: DEXTROSE 5%-WATER - 50 ML IVPB ONE (15:43)
[2019-06-29] MEDS: CEFTRIAXONE 1 GM in DEXTROSE 5%-WATER - 50 ML IVPB SCH (15:50)
--- NOTE | 2019-06-29 18:01 | PN ---
Progress Note (short form) - Note Progress Note: ID consult dictated respiratory failure small RLL pneumonia copd exacerbation chf exacerbation agree with rocephin/doxy based on cultures urinary antigen he is HIV negative - tested last admission- Problem List - Problems (1) Acute respiratory failure Code(s): J96.00 - ACUTE RESPIRATORY FAILURE, UNSP W HYPOXIA OR HYPERCAPNIA (2) Pneumonia Code(s): J18.9 - PNEUMONIA, UNSPECIFIED ORGANISM (3) COPD exacerbation Code(s): J44.1 - CHRONIC OBSTRUCTIVE PULMONARY DISEASE W (ACUTE) EXACERBATION (4) Diastolic CHF Code(s): I50.30 - UNSPECIFIED DIASTOLIC (CONGESTIVE) HEART FAILURE Qualifiers: Heart failure chronicity: unspecified Qualified Code(s): I50.30 - Unspecified diastolic (congestive) heart failure
--- NOTE | 2019-06-29 19:47 | CONS ---
DATE OF CONSULTATION: DATE OF DICTATION: 06/29/2019 INFECTIOUS DISEASE CONSULTATION REQUESTING PHYSICIAN: Yohana Hendrix M.D. HISTORY OF PRESENT ILLNESS: This is a 64-year-old man who was recently hospitalized from June 04 to June 16 at [facility], where he had acute respiratory failure, requiring intubation. He was in the ICU. He was treated with several days of Zithromax. His admission was notable for a CHF/COPD exacerbation. He was discharged to a shelter. He was now readmitted with acute onset of 1-day history of worsening shortness of breath, with some associated cough. There has been no nausea, vomiting, fever or chills, chest pain or abdominal pain. He has had some mild increase in lower extremity swelling as well. PAST MEDICAL HISTORY: Notable for coronary artery disease, hypertension, hyperlipidemia, COPD (oxygen dependent). He has a history of anemia, chronic low back pain. He has a history of rheumatoid arthritis. PAST SURGICAL HISTORY: He has had a CABG and stenting in the past. The CABG was done 5 years ago. ALLERGIES: He states he is not allergic to PENICILLIN, although it is listed as an allergy. He is allergic to SEAFOOD. MEDICATIONS: His medications at the shelter include albuterol inhaler, Symbicort inhaler, Plavix, folic acid, furosemide, Plaquenil, methotrexate, Ramipril, Zocor, clonazepam, atorvastatin, and Ellipta inhaler. FAMILY HISTORY: Unremarkable. SOCIAL HISTORY: Prior to rehab at the shelter, he was on disability. 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 He stopped smoking 30 years ago. REVIEW OF SYSTEMS: Notable for the increased shortness of breath over the course of the last day. PHYSICAL EXAMINATION: General: He is alert. He is on BiPAP. He is able to have a conversation with me. Vital Signs: Temperature is 97.7. Pulse is 121, blood pressure 120/56. Respiratory rate is 22. He is saturating 94% on 30%. HEENT: He is normocephalic. His eyes are anicteric. He is wearing the BiPAP. Lungs: Very distant lung sounds. I do not hear any crackles. Heart: Regular rate and rhythm. He is somewhat tachycardic. Abdomen: Soft, nontender. Extremities: He has trace pretibial edema bilaterally. LABORATORY DATA: Notable for a white count on admission of 10.3, today 6.5; hemoglobin 10.9, platelets 188. BUN 17, creatinine 0.7. Urinalysis is negative. He had an HIV test done, which is negative. His influenza screen in the ER was negative as well. Sputum culture is normal tamika. Urine and blood cultures are negative. DIAGNOSTIC STUDIES: He had a CTA of his chest done that shows no evidence of PE. There is a very small right lower lobe infiltrate noted laterally. SUMMARY: This is a 64-year-old man with severe chronic obstructive pulmonary disease and congestive heart failure, admitted with worsening respiratory failure, with evidence of a small right lower lobe pneumonia. I would agree with the ceftriaxone and doxycycline. Would add a urinary antigen for completeness. Would continue diuresis and treatment with steroids as per Cardiology and Pulmonology. MALVIN HENSON M.D. [id number]
[2019-06-29] MEDS ORDERED: DOXYCYCLINE HYCLATE 100 MG VIAL ONE (21:34)
[2019-06-29] MEDS: DOXYCYCLINE INJECTION 100 MG in DEXTROSE 5%-WATER 100 ML IVPB SCH (22:00)
[2019-06-29] MEDS: ATORVASTATIN CA 20 MG TABLET (FP) PO SCH (22:00)
[2019-06-30] MEDS: methylPREDNISolone NA SUCC 40 MG/1 ML VIAL IVPUSH SCH ×3 (01:01→17:12)
[2019-06-30] MEDS: ALBUTEROL SO4 2.5/IPRATROPIUM 0.5 INH SOL 3 ML VIAL.NEB. NEB SCH ×4 (07:25→20:07)
[2019-06-30 07:36] LABS: BLOOD UREA NITROGEN 19.5 mg/dL (7-18); CREATININE 0.7 mg/dL (0.55-1.3); POTASSIUM 4.8 mmol/L (3.5-5.1)
[2019-06-30 07:40] LABS: BASO % 0.2 % (0-2.0); HEMATOCRIT 33.9 % (35.4-49); HEMOGLOBIN 11.3 GM/dL (11.7-16.9); LYMPH % 5.1 % (8-40); MCH 30.6 pg (25.7-33.7); MCHC 33.2 g/dl (32.0-35.9); MEAN CELL VOLUME 92.2 fl (80-96); MONO % 3.8 % (3.8-10.2); NEUT % 90.9 % (42.8-82.8); RBC 3.67 M/mm3 (4.00-5.60); RDW 16.3 % (11.9-15.9); WHITE BLOOD COUNT 5.1 K/mm3 (4.0-10.0)
--- NOTE | 2019-06-30 08:38 | PN ---
Progress Note, Physician Chief Complaint: Patient will improve now saturating well on home O2 - Current Medication List Current Medications: Active Medications Acetaminophen (Tylenol -) 650 mg PO Q4H PRN PRN Reason: FEVER Albuterol Sulfate (Ventolin Hfa Inhaler -) 2 puff IH Q4H PRN PRN Reason: SHORT OF BREATH/WHEEZING Albuterol/Ipratropium (Duoneb -) 1 amp NEB RQID [facility] Last Admin: 06/30/19 07:25 Dose: 1 amp Atorvastatin Calcium (Lipitor -) 20 mg PO HS [facility] Last Admin: 06/29/19 22:00 Dose: 20 mg Budesonide/Formoterol Fumarate (Symbicort 160/4.5mcg -) 1 puff IH BID [facility] Last Admin: 06/29/19 22:01 Dose: 1 puff Clonazepam (Klonopin -) 0.5 mg PO BID [facility] Last Admin: 06/29/19 22:00 Dose: 0.5 mg Enoxaparin Sodium (Lovenox -) 40 mg SQ DAILY [facility] Last Admin: 06/29/19 09:21 Dose: 40 mg Folic Acid (Folic Acid -) 1 mg PO DAILY [facility] Last Admin: 06/29/19 09:21 Dose: 1 mg Furosemide (Lasix Injection -) 40 mg IVPUSH DAILY [facility] Last Admin: 06/29/19 09:21 Dose: 40 mg Ceftriaxone Sodium 1 gm/ (Dextrose) 50 mls @ 100 mls/hr IVPB DAILY [facility] Last Admin: 06/29/19 15:50 Dose: 100 mls/hr Doxycycline Hyclate 100 mg/ (Dextrose) 100 mls @ 50 mls/hr IVPB BID [facility] Last Admin: 06/29/19 22:00 Dose: 50 mls/hr Methotrexate (Mexate -) 15 mg PO Q7D@1000 [facility] Last Admin: 06/28/19 09:46 Dose: 15 mg Methylprednisolone Sodium Succinate (Solu-Medrol -) 40 mg IVPUSH Q8H-IV [facility] Last Admin: 06/30/19 01:01 Dose: 40 mg Ramipril (Altace -) 5 mg PO DAILY [facility] Last Admin: 06/29/19 09:21 Dose: 5 mg - Objective Vital Signs: Vital Signs Temperature 97.4 F L 06/30/19 06:00 Pulse Rate 101 H 06/30/19 06:00 Respiratory Rate 20 01/03/20 06:00 Blood Pressure 136/77 06/30/19 06:00 O2 Sat by Pulse Oximetry (%) 97 06/30/19 08:11 General: Young male in mild respiratory distress. HEENT; mucous membranes moist, no anemia, no jaundice, PERRLA, no nystagmus Neck: No JVD, supple, no bruit, thyroid palpably normal, normal carotid pulsations. Chest: Nontender, bilateral wheezing. CVS: S1-S2 regularno murmur/gallop/rub Abdomen: Nondistended, soft, bowel sounds present. 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 MANAGER: AO X3 , no gross motor sensory deficit Labs: CBC, BMP 06/30/19 06:13 06/30/19 06:13 INR, PTT INR 0.93 (0.83-1.09) 06/28/19 03:20 Problem List - Problems (1) Acute on chronic respiratory failure with hypoxemia Assessment/Plan: Continue IV methylprednisolone 40 mg 3 times daily, bronchodilator and pulmonary input Code(s): J96.21 - ACUTE AND CHRONIC RESPIRATORY FAILURE WITH HYPOXIA (2) Pneumonia Assessment/Plan: CT chest showed right lower lobe pneumonia, put on ceftriaxone 1 g daily and doxycycline ID consult, sputum culture and follow-up procalcitonin Code(s): J18.9 - PNEUMONIA, UNSPECIFIED ORGANISM (3) COPD exacerbation Assessment/Plan: Severe COPD patient was referred for lung transplant, follow-up pulmonary recommendations, bronchodilators and IV hydration. Code(s): J44.1 - CHRONIC OBSTRUCTIVE PULMONARY DISEASE W (ACUTE) EXACERBATION (4) Diastolic CHF Assessment/Plan: Compensated continue Lasix 40 mg daily Code(s): I50.30 - UNSPECIFIED DIASTOLIC (CONGESTIVE) HEART FAILURE Qualifiers: Heart failure chronicity: unspecified Qualified Code(s): I50.30 - Unspecified diastolic (congestive) heart failure (5) Hypercholesterolemia Assessment/Plan: Continue statin Code(s): E78.0 - PURE HYPERCHOLESTEROLEMIA * DO NOT USE *
[2019-06-30] MEDS ORDERED: DOXYCYCLINE HYCLATE 100 MG VIAL ONE ×2 (09:15→20:25)
[2019-06-30] MEDS ORDERED: DEXTROSE 5%-WATER 100 ML IVPB ONE ×2 (09:15→20:25)
[2019-06-30] MEDS ORDERED: cefTRIAXone SODIUM 1 GM VIAL ONE (09:17)
[2019-06-30] MEDS ORDERED: DEXTROSE 5%-WATER - 50 ML IVPB ONE (09:17)
[2019-06-30] MEDS: RAMIPRIL 5 MG CAPSULE (FP) PO SCH (09:22)
[2019-06-30] MEDS: clonazePAM 0.5 MG TABLET PO SCH ×2 (09:22→21:22)
[2019-06-30] MEDS: CEFTRIAXONE 1 GM in DEXTROSE 5%-WATER - 50 ML IVPB SCH (09:22)
[2019-06-30] MEDS: DOXYCYCLINE INJECTION 100 MG in DEXTROSE 5%-WATER 100 ML IVPB SCH ×2 (09:22→21:25)
[2019-06-30] MEDS: FOLIC ACID 1 MG TABLET (FP) PO SCH (09:22)
[2019-06-30] MEDS: FUROSEMIDE 40 MG/4 ML INJECTABLE VIAL IVPUSH SCH (09:22)
[2019-06-30] MEDS: BUDESONIDE/FORMETEROL FUMARATE 160/4.5 mcg INHALER IH SCH ×2 (09:23→21:22)
[2019-06-30] MEDS: ENOXAPARIN NA (PORCINE) 40 MG/0.4 ML DISP.SYRIN SQ SCH (09:23)
--- NOTE | 2019-06-30 10:26 | PN ---
Progress Note, Physician History of Present Illness: pulmonary alert,less dypneic on nasal o2 - Current Medication List Current Medications: Active Medications Acetaminophen (Tylenol -) 650 mg PO Q4H PRN PRN Reason: FEVER Albuterol Sulfate (Ventolin Hfa Inhaler -) 2 puff IH Q4H PRN PRN Reason: SHORT OF BREATH/WHEEZING Albuterol/Ipratropium (Duoneb -) 1 amp NEB RQID [facility] Last Admin: 06/30/19 07:25 Dose: 1 amp Atorvastatin Calcium (Lipitor -) 20 mg PO HS [facility] Last Admin: 06/29/19 22:00 Dose: 20 mg Budesonide/Formoterol Fumarate (Symbicort 160/4.5mcg -) 1 puff IH BID [facility] Last Admin: 06/30/19 09:23 Dose: 1 puff Clonazepam (Klonopin -) 0.5 mg PO BID [facility] Last Admin: 06/30/19 09:22 Dose: 0.5 mg Enoxaparin Sodium (Lovenox -) 40 mg SQ DAILY [facility] Last Admin: 06/30/19 09:23 Dose: 40 mg Folic Acid (Folic Acid -) 1 mg PO DAILY [facility] Last Admin: 06/30/19 09:22 Dose: 1 mg Furosemide (Lasix Injection -) 40 mg IVPUSH DAILY [facility] Last Admin: 06/30/19 09:22 Dose: 40 mg Ceftriaxone Sodium 1 gm/ (Dextrose) 50 mls @ 100 mls/hr IVPB DAILY [facility] Last Admin: 06/30/19 09:22 Dose: 100 mls/hr Doxycycline Hyclate 100 mg/ (Dextrose) 100 mls @ 50 mls/hr IVPB BID [facility] Last Admin: 06/30/19 09:22 Dose: 50 mls/hr Methotrexate (Mexate -) 15 mg PO Q7D@1000 [facility] Last Admin: 06/28/19 09:46 Dose: 15 mg Methylprednisolone Sodium Succinate (Solu-Medrol -) 40 mg IVPUSH Q8H-IV [facility] Last Admin: 06/30/19 09:23 Dose: 40 mg Ramipril (Altace -) 5 mg PO DAILY [facility] Last Admin: 06/30/19 09:22 Dose: 5 mg - Objective Vital Signs: Vital Signs Temperature 97.4 F L 06/30/19 06:00 Pulse Rate 101 H 06/30/19 06:00 Respiratory Rate 20 06/30/19 06:00 Blood Pressure 136/77 06/30/19 06:00 O2 Sat by Pulse Oximetry (%) 97 06/30/19 08:11 Constitutional: Yes: Calm, Thin, Other (dysneic) Eyes: Yes: WNL HENT: Yes: WNL Neck: Yes: WNL Cardiovascular: Yes: Regular Rate and Rhythm, S1, S2 Respiratory: Yes: Rhonchi (few scatttered [place] rhonchi,wheezes), Wheezes Gastrointestinal: Yes: Normal Bowel Sounds, Soft Edema: Yes Labs: CBC, BMP 06/30/19 06:13 06/30/19 06:13 INR, PTT INR 0.93 (0.83-1.09) 06/28/19 03:20 Assessment/Plan Problem List - Problems (1) Acute respiratory failure Code(s): J96.00 - ACUTE RESPIRATORY FAILURE, UNSP W HYPOXIA OR HYPERCAPNIA (2) Pneumonia Code(s): J18.9 - PNEUMONIA, UNSPECIFIED ORGANISM (3) Acute on chronic respiratory failure with hypoxia and hypercapnia Code(s): J96.21 - ACUTE AND CHRONIC RESPIRATORY FAILURE WITH HYPOXIA; J96.22 - ACUTE AND CHRONIC RESPIRATORY FAILURE WITH HYPERCAPNIA (4) Anxiety and depression Code(s): F41.9 - ANXIETY DISORDER, UNSPECIFIED; F32.9 - MAJOR DEPRESSIVE DISORDER, SINGLE EPISODE, UNSPECIFIED (5) COPD (chronic obstructive pulmonary disease) Code(s): J44.9 - CHRONIC OBSTRUCTIVE PULMONARY DISEASE, UNSPECIFIED Qualifiers: COPD type: emphysema Emphysema type: unspecified Qualified Code(s): J43.9 - Emphysema, unspecified (6) Cough Code(s): R05 - COUGH (7) Edema Code(s): R60.9 - EDEMA, UNSPECIFIED Qualifiers: Edema type: unspecified Qualified Code(s): R60.9 - Edema, unspecified (8) Rheumatoid arthritis Code(s): M06.9 - RHEUMATOID ARTHRITIS, UNSPECIFIED 8 LLL nodule Assessment/Plan Acute on chronic hypoxemic/hypercapneic resp failure COPD on home 02 HIV/RA on Methotrexate Pneumonia Referred for lung transplant [facility] (patient did not submit paperwork) CABG HTN HLD CHF LLL NODULE NIPPV HS/PRN STEROIDS start taper in am BRONCHODILATORS F/U CHEST CT OUTPATIENT DR GONZALEZ
[2019-06-30 12:35] LABS: PLATELET ESTIMATE NORMAL
--- NOTE | 2019-06-30 14:06 | PN ---
Progress Note (short form) - Note Progress Note: off bipap since early am nonproductive cough feels improved Vital Signs Period Temp Pulse Resp BP Sys/Ellison Pulse Ox Last 24 Hr 97.4 F-98.1 F 100-121 18-24 93-136/53-77 94-99 cor-rrr lungs decreased bs at bases abd soft,nt ext no edema CBC, BMP 06/30/19 06:13 06/30/19 06:13 Microbiology 06/29/19 20:10 Urine For Antigen Detection Legionella Antigen - Final 06/29/19 20:10 Urine For Antigen Detection Streptococcus pneumoniae Antigen (M - Final 06/28/19 14:15 Sputum - Expectorated Gram Stain - Final 06/28/19 14:15 Sputum - Expectorated Sputum Culture - Final NORMAL RESPIRATORY SULEMA 06/28/19 00:01 Blood - Peripheral Venous Blood Culture - Preliminary NO GROWTH OBTAINED AFTER 48 HOURS, INCUBATION TO CONTINUE FOR 3 DAYS. 06/28/19 00:00 Blood - Peripheral Venous Blood Culture - Preliminary NO GROWTH OBTAINED AFTER 48 HOURS, INCUBATION TO CONTINUE FOR 3 DAYS. 06/28/19 05:15 Urine - Urine Clean Catch Urine Culture - Final NO GROWTH OBTAINED a/p respiratory failure small RLL pneumonia copd exacerbation chf exacerbation agree with rocephin/doxy based on cultures urinary antigen negative day #3 antibiotics he is HIV negative - tested last admission-
[2019-06-30] MEDS: ATORVASTATIN CA 20 MG TABLET (FP) PO SCH (21:22)
[2019-07-01] MEDS: methylPREDNISolone NA SUCC 40 MG/1 ML VIAL IVPUSH SCH ×3 (02:14→18:05)
[2019-07-01 06:45] LABS: BASO % 0.3 % (0-2.0); HEMATOCRIT 37.8 % (35.4-49); HEMOGLOBIN 12.4 GM/dL (11.7-16.9); LYMPH % 8.7 % (8-40); MCH 30.4 pg (25.7-33.7); MCHC 32.7 g/dl (32.0-35.9); MEAN CELL VOLUME 92.9 fl (80-96); MEAN PLT VOLUME 8.4 fl (7.5-11.1); MONO % 5.2 % (3.8-10.2); NEUT % 85.8 % (42.8-82.8); PLATELET COUNT 232 K/MM3 (134-434); RBC 4.07 M/mm3 (4.00-5.60); RDW 16.2 % (11.9-15.9); WHITE BLOOD COUNT 6.9 K/mm3 (4.0-10.0)
[2019-07-01 07:13] LABS: BLOOD UREA NITROGEN 21.1 mg/dL (7-18); CALCIUM 9.3 mg/dL (8.5-10.1); CREATININE 0.8 mg/dL (0.55-1.3); POTASSIUM 5.1 mmol/L (3.5-5.1)
[2019-07-01] MEDS: ALBUTEROL SO4 2.5/IPRATROPIUM 0.5 INH SOL 3 ML VIAL.NEB. NEB SCH ×4 (07:57→20:53)
[2019-07-01] MEDS ORDERED: DOXYCYCLINE HYCLATE 100 MG VIAL ONE ×2 (08:39→21:13)
[2019-07-01] MEDS ORDERED: DEXTROSE 5%-WATER 100 ML IVPB ONE ×2 (08:39→21:13)
[2019-07-01] MEDS ORDERED: DEXTROSE 5%-WATER - 50 ML IVPB ONE (08:40)
[2019-07-01] MEDS ORDERED: cefTRIAXone SODIUM 1 GM VIAL ONE (08:40)
--- NOTE | 2019-07-01 08:58 | PN ---
Progress Note, Physician Chief Complaint: Patient feels improve now saturating well on home O2 - Current Medication List Current Medications: Active Medications Acetaminophen (Tylenol -) 650 mg PO Q4H PRN PRN Reason: FEVER Albuterol Sulfate (Ventolin Hfa Inhaler -) 2 puff IH Q4H PRN PRN Reason: SHORT OF BREATH/WHEEZING Albuterol/Ipratropium (Duoneb -) 1 amp NEB RQID [facility] Last Admin: 07/01/19 07:57 Dose: 1 amp Atorvastatin Calcium (Lipitor -) 20 mg PO HS [facility] Last Admin: 06/30/19 21:22 Dose: 20 mg Budesonide/Formoterol Fumarate (Symbicort 160/4.5mcg -) 1 puff IH BID [facility] Last Admin: 06/30/19 21:22 Dose: 1 puff Clonazepam (Klonopin -) 0.5 mg PO BID [facility] Last Admin: 06/30/19 21:22 Dose: 0.5 mg Enoxaparin Sodium (Lovenox -) 40 mg SQ DAILY [facility] Last Admin: 06/30/19 09:23 Dose: 40 mg Folic Acid (Folic Acid -) 1 mg PO DAILY [facility] Last Admin: 06/30/19 09:22 Dose: 1 mg Furosemide (Lasix Injection -) 40 mg IVPUSH DAILY [facility] Last Admin: 06/30/19 09:22 Dose: 40 mg Ceftriaxone Sodium 1 gm/ (Dextrose) 50 mls @ 100 mls/hr IVPB DAILY [facility] Last Admin: 06/30/19 09:22 Dose: 100 mls/hr Doxycycline Hyclate 100 mg/ (Dextrose) 100 mls @ 50 mls/hr IVPB BID [facility] Last Admin: 06/30/19 21:25 Dose: 50 mls/hr Methotrexate (Mexate -) 15 mg PO Q7D@1000 [facility] Last Admin: 06/28/19 09:46 Dose: 15 mg Methylprednisolone Sodium Succinate (Solu-Medrol -) 40 mg IVPUSH Q8H-IV [facility] Last Admin: 07/01/19 02:14 Dose: 40 mg Ramipril (Altace -) 5 mg PO DAILY [facility] Last Admin: 06/30/19 09:22 Dose: 5 mg - Objective Vital Signs: Vital Signs Temperature 97.8 F 07/01/19 06:00 Pulse Rate 96 H 07/01/19 06:00 Respiratory Rate 22 H 07/01/19 06:00 Blood Pressure 121/74 07/01/19 06:00 O2 Sat by Pulse Oximetry (%) 97 07/01/19 07:56 General: Young male in mild respiratory distress. HEENT; mucous membranes moist, no anemia, no jaundice, PERRLA, no nystagmus Neck: No JVD, supple, no bruit, thyroid palpably normal, normal carotid pulsations. Chest: Nontender, bilateral wheezing. CVS: S1-S2 regularno murmur/gallop/rub Abdomen: Nondistended, soft, bowel sounds present. Extremities: + edema., No calf tenderness, pulses present [employer]OR: AO X3 , no gross motor sensory deficit Labs: CBC, BMP 07/01/19 06:15 07/01/19 06:15 INR, PTT INR 0.93 (0.83-1.09) 06/28/19 03:20 Problem List - Problems (1) Acute on chronic respiratory failure with hypoxemia Assessment/Plan: Continue IV methylprednisolone 40 mg 3 times daily, bronchodilator and pulmonary input Code(s): J96.21 - ACUTE AND CHRONIC RESPIRATORY FAILURE WITH HYPOXIA (2) Pneumonia Assessment/Plan: CT chest showed right lower lobe pneumonia, put on ceftriaxone 1 g daily and doxycycline ID consult, sputum culture and follow-up procalcitonin Code(s): J18.9 - PNEUMONIA, UNSPECIFIED ORGANISM (3) COPD exacerbation Assessment/Plan: Severe COPD patient was referred for lung transplant, follow-up pulmonary recommendations, bronchodilators and IV hydration. Code(s): J44.1 - CHRONIC OBSTRUCTIVE PULMONARY DISEASE W (ACUTE) EXACERBATION (4) Diastolic CHF Assessment/Plan: Compensated continue Lasix 40 mg daily Code(s): I50.30 - UNSPECIFIED DIASTOLIC (CONGESTIVE) HEART FAILURE Qualifiers: Heart failure chronicity: unspecified Qualified Code(s): I50.30 - Unspecified diastolic (congestive) heart failure (5) Hypercholesterolemia Assessment/Plan: Continue statin Code(s): E78.0 - PURE HYPERCHOLESTEROLEMIA * DO NOT USE * (6) CAD (coronary artery disease) Assessment/Plan: Stable Problems reviewed: Yes Code(s): I25.10 - ATHSCL HEART DISEASE OF [place] CORONARY ARTERY W/O ANG PCTRS (7) Rheumatoid arthritis Assessment/Plan: Cont home medications. Problems reviewed: Yes Code(s): M06.9 - RHEUMATOID ARTHRITIS, UNSPECIFIED
[2019-07-01] MEDS: ENOXAPARIN NA (PORCINE) 40 MG/0.4 ML DISP.SYRIN SQ SCH (09:32)
[2019-07-01] MEDS: FOLIC ACID 1 MG TABLET (FP) PO SCH (09:33)
[2019-07-01] MEDS: FUROSEMIDE 40 MG/4 ML INJECTABLE VIAL IVPUSH SCH (09:33)
[2019-07-01] MEDS: clonazePAM 0.5 MG TABLET PO SCH ×2 (09:33→21:17)
[2019-07-01] MEDS: CEFTRIAXONE 1 GM in DEXTROSE 5%-WATER - 50 ML IVPB SCH (09:33)
[2019-07-01] MEDS: RAMIPRIL 5 MG CAPSULE (FP) PO SCH (09:33)
[2019-07-01] MEDS: BUDESONIDE/FORMETEROL FUMARATE 160/4.5 mcg INHALER IH SCH ×2 (09:34→21:17)
[2019-07-01] MEDS: DOXYCYCLINE INJECTION 100 MG in DEXTROSE 5%-WATER 100 ML IVPB SCH ×2 (10:28→21:17)
[2019-07-01 11:08] LABS: MAGNESIUM 2.7 mg/dL (1.8-2.4)
--- NOTE | 2019-07-01 13:48 | PN ---
Progress Note (short form) - Note Progress Note: Breathing feels a little better today. Used NIPPV support until about 4 AM. Tachypneic with eating and speaking. No CP. Intake & Output 06/28/19 06/29/19 06/30/19 07/01/19 23:59 23:59 23:59 23:59 Intake Total 192 470 770 360 Output Total 1200 400 Balance 0 470 -430 -40 Weight 126 lb Last Vital Signs Temp Pulse Resp BP Pulse Ox 98.3 F 127 H 23 H 131/93 95 07/01/19 10:00 07/01/19 10:00 07/01/19 10:00 07/01/19 10:00 07/01/19 12:06 Active Medications Acetaminophen (Tylenol -) 650 mg PO Q4H PRN PRN Reason: FEVER Albuterol Sulfate (Ventolin Hfa Inhaler -) 2 puff IH Q4H PRN PRN Reason: SHORT OF BREATH/WHEEZING Albuterol/Ipratropium (Duoneb -) 1 amp NEB RQID [facility] Last Admin: 07/01/19 12:06 Dose: 1 amp Atorvastatin Calcium (Lipitor -) 20 mg PO HS [facility] Last Admin: 06/30/19 21:22 Dose: 20 mg Budesonide/Formoterol Fumarate (Symbicort 160/4.5mcg -) 1 puff IH BID [facility] Last Admin: 07/01/19 09:34 Dose: 1 puff Clonazepam (Klonopin -) 0.5 mg PO BID [facility] Last Admin: 07/01/19 09:33 Dose: 0.5 mg Enoxaparin Sodium (Lovenox -) 40 mg SQ DAILY [facility] Last Admin: 07/01/19 09:32 Dose: 40 mg Folic Acid (Folic Acid -) 1 mg PO DAILY [facility] Last Admin: 07/01/19 09:33 Dose: 1 mg Furosemide (Lasix Injection -) 40 mg IVPUSH DAILY [facility] Last Admin: 07/01/19 09:33 Dose: 40 mg Ceftriaxone Sodium 1 gm/ (Dextrose) 50 mls @ 100 mls/hr IVPB DAILY [facility] Last Admin: 07/01/19 09:33 Dose: 100 mls/hr Doxycycline Hyclate 100 mg/ (Dextrose) 100 mls @ 50 mls/hr IVPB BID [facility] Last Admin: 07/01/19 10:28 Dose: 50 mls/hr Methotrexate (Mexate -) 15 mg PO Q7D@1000 [facility] Last Admin: 06/28/19 09:46 Dose: 15 mg Methylprednisolone Sodium Succinate (Solu-Medrol -) 40 mg IVPUSH Q8H-IV [facility] Last Admin: 07/01/19 09:33 Dose: 40 mg Ramipril (Altace -) 5 mg PO DAILY [facility] Last Admin: 07/01/19 09:33 Dose: 5 mg Constitutional: Yes: Thin, Dysneic Eyes: Yes: WNL HENT: Yes: WNL Neck: Yes: WNL Cardiovascular: Yes: Regular Rate and Rhythm, S1, S2 Respiratory: Yes: Scattered Bilateral Rhonchi and Expiratory Wheezes Gastrointestinal: Yes: Normal Bowel Sounds, Soft Edema: Yes Labs: Laboratory Results - last 24 hr 06/28/19 07/01/19 07/01/19 02:00 06:15 06:15 WBC 6.9 RBC 4.07 Hgb 12.4 Hct 37.8 MCV 92.9 MCH 30.4 MCHC 32.7 RDW 16.2 H Plt Count 232 D MPV 8.4 D Absolute Neuts (auto) 5.9 Neutrophils % 85.8 H Lymphocytes % 8.7 D Monocytes % 5.2 Eosinophils % 0.0 Basophils % 0.3 Nucleated RBC % 0 Sodium 135 L Potassium 5.1 Chloride 90 L Carbon Dioxide 42 H Anion Gap 4 L BUN 21.1 H Creatinine 0.8 Est GFR (CKD-EPI)AfAm 110.96 Est GFR (CKD-EPI)NonAf 95.74 Random Glucose 113 H Calcium 9.3 Magnesium 2.7 H Adenovirus (PCR) Negative Human Metapneumovir PCR Positive H Influenza A (H1) PCR Negative Influenza B (RT-PCR) Negative Parainfluenza 1 (PCR) Negative Parainfluenza 2 (PCR) Negative Parainfluenza 3 (PCR) Negative RSV Type A (PCR) Negative RSV Type B (PCR) Negative Rhinovirus (PCR) Negative Assessment/Plan Problem List - Problems (1) Acute respiratory failure Code(s): J96.00 - ACUTE RESPIRATORY FAILURE, UNSP W HYPOXIA OR HYPERCAPNIA (2) Pneumonia Code(s): J18.9 - PNEUMONIA, UNSPECIFIED ORGANISM (3) Acute on chronic respiratory failure with hypoxia and hypercapnia Code(s): J96.21 - ACUTE AND CHRONIC RESPIRATORY FAILURE WITH HYPOXIA; J96.22 - ACUTE AND CHRONIC RESPIRATORY FAILURE WITH HYPERCAPNIA (4) Anxiety and depression Code(s): F41.9 - ANXIETY DISORDER, UNSPECIFIED; F32.9 - MAJOR DEPRESSIVE DISORDER, SINGLE EPISODE, UNSPECIFIED (5) COPD (chronic obstructive pulmonary disease) Code(s): J44.9 - CHRONIC OBSTRUCTIVE PULMONARY DISEASE, UNSPECIFIED Qualifiers: COPD type: emphysema Emphysema type: unspecified Qualified Code(s): J43.9 - Emphysema, unspecified (6) Cough Code(s): R05 - COUGH (7) Edema Code(s): R60.9 - EDEMA, UNSPECIFIED Qualifiers: Edema type: unspecified Qualified Code(s): R60.9 - Edema, unspecified (8) Rheumatoid arthritis Code(s): M06.9 - RHEUMATOID ARTHRITIS, UNSPECIFIED 8 LLL nodule Assessment/Plan Acute on chronic hypoxemic/hypercapneic resp failure COPD on home 02 HIV/RA on Methotrexate Pneumonia Referred for lung transplant [facility] (patient did not submit paperwork) CABG HTN HLD CHF LLL NODULE NIPPV HS/PRN IV STEROIDS BRONCHODILATORS F/U CHEST CT OUTPATIENT ABX PER ID SYMBICORT BID DR REEVES
[2019-07-01] MEDS: ATORVASTATIN CA 20 MG TABLET (FP) PO SCH (21:17)
[2019-07-02] MEDS: methylPREDNISolone NA SUCC 40 MG/1 ML VIAL IVPUSH SCH ×3 (02:02→17:13)
[2019-07-02 07:08] LABS: HEMATOCRIT 36.6 % (35.4-49); HEMOGLOBIN 12.1 GM/dL (11.7-16.9); LYMPH % 3.8 % (8-40); MCH 30.5 pg (25.7-33.7); MEAN CELL VOLUME 92.5 fl (80-96); MEAN PLT VOLUME 7.8 fl (7.5-11.1); MONO % 4.4 % (3.8-10.2); NEUT % 91.8 % (42.8-82.8); PLATELET COUNT 253 K/MM3 (134-434); RBC 3.95 M/mm3 (4.00-5.60); WHITE BLOOD COUNT 6.8 K/mm3 (4.0-10.0)
[2019-07-02 07:32] LABS: BLOOD UREA NITROGEN 20.9 mg/dL (7-18); CALCIUM 9.2 mg/dL (8.5-10.1); CREATININE 0.7 mg/dL (0.55-1.3); POTASSIUM 5.1 mmol/L (3.5-5.1)
[2019-07-02] MEDS: ALBUTEROL SO4 2.5/IPRATROPIUM 0.5 INH SOL 3 ML VIAL.NEB. NEB SCH ×4 (07:35→20:56)
--- NOTE | 2019-07-02 08:28 | PN ---
Progress Note, Physician Chief Complaint: Patient feels improve now saturating well on home O2 - Current Medication List Current Medications: Active Medications Acetaminophen (Tylenol -) 650 mg PO Q4H PRN PRN Reason: FEVER Albuterol Sulfate (Ventolin Hfa Inhaler -) 2 puff IH Q4H PRN PRN Reason: SHORT OF BREATH/WHEEZING Albuterol/Ipratropium (Duoneb -) 1 amp NEB RQID [facility] Last Admin: 07/02/19 07:35 Dose: 1 amp Atorvastatin Calcium (Lipitor -) 20 mg PO HS [facility] Last Admin: 07/01/19 21:17 Dose: 20 mg Budesonide/Formoterol Fumarate (Symbicort 160/4.5mcg -) 1 puff IH BID [facility] Last Admin: 07/01/19 21:17 Dose: 1 puff Clonazepam (Klonopin -) 0.5 mg PO BID [facility] Last Admin: 07/01/19 21:17 Dose: 0.5 mg Enoxaparin Sodium (Lovenox -) 40 mg SQ DAILY [facility] Last Admin: 07/01/19 09:32 Dose: 40 mg Folic Acid (Folic Acid -) 1 mg PO DAILY [facility] Last Admin: 07/01/19 09:33 Dose: 1 mg Furosemide (Lasix Injection -) 40 mg IVPUSH DAILY [facility] Last Admin: 07/01/19 09:33 Dose: 40 mg Ceftriaxone Sodium 1 gm/ (Dextrose) 50 mls @ 100 mls/hr IVPB DAILY [facility] Last Admin: 07/01/19 09:33 Dose: 100 mls/hr Doxycycline Hyclate 100 mg/ (Dextrose) 100 mls @ 50 mls/hr IVPB BID [facility] Last Admin: 07/01/19 21:17 Dose: 50 mls/hr Methotrexate (Mexate -) 15 mg PO Q7D@1000 [facility] Last Admin: 06/28/19 09:46 Dose: 15 mg Methylprednisolone Sodium Succinate (Solu-Medrol -) 40 mg IVPUSH Q8H-IV [facility] Last Admin: 07/02/19 02:02 Dose: 40 mg Ramipril (Altace -) 5 mg PO DAILY [facility] Last Admin: 07/01/19 09:33 Dose: 5 mg - Objective Vital Signs: Vital Signs Temperature 98.3 F 07/02/19 06:00 Pulse Rate 95 H 07/02/19 06:00 Respiratory Rate 20 01/05/20 06:00 Blood Pressure 123/68 07/02/19 06:00 O2 Sat by Pulse Oximetry (%) 99 07/02/19 07:35 Labs: CBC, BMP 07/02/19 06:26 07/02/19 06:26 INR, PTT INR 0.93 (0.83-1.09) 06/28/19 03:20 Problem List - Problems (1) Acute on chronic respiratory failure with hypoxemia Assessment/Plan: Continue IV methylprednisolone 40 mg 3 times daily, bronchodilator and pulmonary input Code(s): J96.21 - ACUTE AND CHRONIC RESPIRATORY FAILURE WITH HYPOXIA (2) Pneumonia Assessment/Plan: CT chest showed right lower lobe pneumonia, put on ceftriaxone 1 g daily and doxycycline ID consult, sputum culture and follow-up procalcitonin Code(s): J18.9 - PNEUMONIA, UNSPECIFIED ORGANISM (3) COPD exacerbation Assessment/Plan: Severe COPD patient was referred for lung transplant, follow-up pulmonary recommendations, bronchodilators and IV hydration. Code(s): J44.1 - CHRONIC OBSTRUCTIVE PULMONARY DISEASE W (ACUTE) EXACERBATION (4) Diastolic CHF Assessment/Plan: Compensated continue Lasix 40 mg daily Code(s): I50.30 - UNSPECIFIED DIASTOLIC (CONGESTIVE) HEART FAILURE Qualifiers: Heart failure chronicity: unspecified Qualified Code(s): I50.30 - Unspecified diastolic (congestive) heart failure (5) Hypercholesterolemia Assessment/Plan: Continue statin Code(s): E78.0 - PURE HYPERCHOLESTEROLEMIA * DO NOT USE * (6) CAD (coronary artery disease) Assessment/Plan: Stable Code(s): I25.10 - ATHSCL HEART DISEASE OF [place] CORONARY ARTERY W/O ANG PCTRS (7) Rheumatoid arthritis Assessment/Plan: Cont home medications. Code(s): M06.9 - RHEUMATOID ARTHRITIS, UNSPECIFIED
[2019-07-02] MEDS ORDERED: DEXTROSE 5%-WATER - 50 ML IVPB ONE (09:10)
[2019-07-02] MEDS ORDERED: cefTRIAXone SODIUM 1 GM VIAL ONE (09:10)
[2019-07-02] MEDS: DOXYCYCLINE HYCLATE 100 MG CAPSULE PO SCH ×2 (09:12→17:13)
[2019-07-02] MEDS: RAMIPRIL 5 MG CAPSULE (FP) PO SCH (09:12)
[2019-07-02] MEDS: PANTOPRAZOLE 20 MG TABLET (FP) PO SCH (09:12)
[2019-07-02] MEDS: FOLIC ACID 1 MG TABLET (FP) PO SCH (09:12)
[2019-07-02] MEDS: clonazePAM 0.5 MG TABLET PO SCH ×2 (09:12→21:40)
[2019-07-02] MEDS: ENOXAPARIN NA (PORCINE) 40 MG/0.4 ML DISP.SYRIN SQ SCH (09:12)
[2019-07-02] MEDS: CEFTRIAXONE 1 GM in DEXTROSE 5%-WATER - 50 ML IVPB SCH (09:12)
[2019-07-02] MEDS: FUROSEMIDE 40 MG/4 ML INJECTABLE VIAL IVPUSH SCH (09:12)
[2019-07-02] MEDS: BUDESONIDE/FORMETEROL FUMARATE 160/4.5 mcg INHALER IH SCH ×2 (09:13→21:39)
[2019-07-02 09:48] LABS: PLATELET ESTIMATE ADEQUATE
--- NOTE | 2019-07-02 10:01 | PN ---
Progress Note (short form) - Note Progress Note: Breathing feels a little better today. Used NIPPV support until about 6 AM. Appears less tachypneic with eating and speaking. No CP. Intake & Output 06/29/19 06/30/19 07/01/19 07/02/19 23:59 23:59 23:59 23:59 Intake Total 470 770 650 20 Output Total 1200 1300 600 Balance 470 -430 -650 -580 Weight 126 lb 122 lb 6.4 oz Last Vital Signs Temp Pulse Resp BP Pulse Ox 98.3 F 95 H 20 123/68 99 07/02/19 06:00 07/02/19 06:00 07/02/19 06:00 07/02/19 06:00 07/02/19 07:35 Active Medications Acetaminophen (Tylenol -) 650 mg PO Q4H PRN PRN Reason: FEVER Albuterol Sulfate (Ventolin Hfa Inhaler -) 2 puff IH Q4H PRN PRN Reason: SHORT OF BREATH/WHEEZING Albuterol/Ipratropium (Duoneb -) 1 amp NEB RQID [facility] Last Admin: 07/02/19 07:35 Dose: 1 amp Atorvastatin Calcium (Lipitor -) 20 mg PO HS [facility] Last Admin: 07/01/19 21:17 Dose: 20 mg Budesonide/Formoterol Fumarate (Symbicort 160/4.5mcg -) 1 puff IH BID [facility] Last Admin: 07/02/19 09:13 Dose: 1 puff Clonazepam (Klonopin -) 0.5 mg PO BID [facility] Last Admin: 07/02/19 09:12 Dose: 0.5 mg Diltiazem HCl (Cardizem -) 30 mg PO TID [facility] Doxycycline Hyclate (Vibramycin -) 100 mg PO BID@1000,1800 [facility] Last Admin: 07/02/19 09:12 Dose: 100 mg Enoxaparin Sodium (Lovenox -) 40 mg SQ DAILY [facility] Last Admin: 07/02/19 09:12 Dose: 40 mg Folic Acid (Folic Acid -) 1 mg PO DAILY [facility] Last Admin: 07/02/19 09:12 Dose: 1 mg Furosemide (Lasix Injection -) 40 mg IVPUSH DAILY [facility] Last Admin: 07/02/19 09:12 Dose: 40 mg Ceftriaxone Sodium 1 gm/ (Dextrose) 50 mls @ 100 mls/hr IVPB DAILY [facility] Last Admin: 07/02/19 09:12 Dose: 100 mls/hr Methotrexate (Mexate -) 15 mg PO Q7D@1000 [facility] Last Admin: 06/28/19 09:46 Dose: 15 mg Methylprednisolone Sodium Succinate (Solu-Medrol -) 40 mg IVPUSH Q8H-IV [facility] Last Admin: 07/02/19 09:12 Dose: 40 mg Pantoprazole Sodium (Protonix -) 20 mg PO DAILY [facility] Last Admin: 07/02/19 09:12 Dose: 20 mg Ramipril (Altace -) 5 mg PO DAILY [facility] Last Admin: 07/02/19 09:12 Dose: 5 mg Constitutional: Yes: Thin, Less dysneic Eyes: Yes: WNL HENT: Yes: WNL Neck: Yes: WNL Cardiovascular: Yes: Regular Rate and Rhythm, S1, S2 Respiratory: Yes: Scattered Bilateral Rhonchi and Expiratory Wheezes Gastrointestinal: Yes: Normal Bowel Sounds, Soft Edema: Yes Labs: Laboratory Results - last 24 hr 07/01/19 07/02/19 07/02/19 06:15 06:26 06:26 WBC 6.8 RBC 3.95 L Hgb 12.1 Hct 36.6 MCV 92.5 MCH 30.5 MCHC 33.0 RDW 16.0 H Plt Count 253 MPV 7.8 Absolute Neuts (auto) 6.2 Total Counted 100 Neutrophils % 91.8 H Neutrophils % (Manual) 89.0 H Band Neutrophils % 2.0 Lymphocytes % 3.8 L D Lymphocytes % (Manual) 4.0 L Monocytes % 4.4 Monocytes % (Manual) 5 D Eosinophils % 0.0 Eosinophils % (Manual) 5.0 H D Basophils % 0.0 Nucleated RBC % 0 Hypochromia 1+ Platelet Estimate Adequate Platelet Comment No clotting detected Sodium 135 L 137 Potassium 5.1 5.1 Chloride 90 L 91 L Carbon Dioxide 42 H 44 H Anion Gap 4 L 2 L BUN 21.1 H 20.9 H Creatinine 0.8 0.7 Est GFR (CKD-EPI)AfAm 110.96 117.22 Est GFR (CKD-EPI)NonAf 95.74 101.14 Random Glucose 113 H 101 Calcium 9.3 9.2 Magnesium 2.7 H Assessment/Plan Problem List - Problems (1) Acute respiratory failure Code(s): J96.00 - ACUTE RESPIRATORY FAILURE, UNSP W HYPOXIA OR HYPERCAPNIA (2) Pneumonia Code(s): J18.9 - PNEUMONIA, UNSPECIFIED ORGANISM (3) Acute on chronic respiratory failure with hypoxia and hypercapnia Code(s): J96.21 - ACUTE AND CHRONIC RESPIRATORY FAILURE WITH HYPOXIA; J96.22 - ACUTE AND CHRONIC RESPIRATORY FAILURE WITH HYPERCAPNIA (4) Anxiety and depression Code(s): F41.9 - ANXIETY DISORDER, UNSPECIFIED; F32.9 - MAJOR DEPRESSIVE DISORDER, SINGLE EPISODE, UNSPECIFIED (5) COPD (chronic obstructive pulmonary disease) Code(s): J44.9 - CHRONIC OBSTRUCTIVE PULMONARY DISEASE, UNSPECIFIED Qualifiers: COPD type: emphysema Emphysema type: unspecified Qualified Code(s): J43.9 - Emphysema, unspecified (6) Cough Code(s): R05 - COUGH (7) Edema Code(s): R60.9 - EDEMA, UNSPECIFIED Qualifiers: Edema type: unspecified Qualified Code(s): R60.9 - Edema, unspecified (8) Rheumatoid arthritis Code(s): M06.9 - RHEUMATOID ARTHRITIS, UNSPECIFIED 8 LLL nodule Assessment/Plan Acute on chronic hypoxemic/hypercapneic resp failure COPD on home 02 HIV/RA on Methotrexate Pneumonia Referred for lung transplant [facility] (patient did not submit paperwork) CABG HTN HLD CHF LLL NODULE NIPPV HS/PRN IV STEROIDS: WILL TAPER TOMORROW BRONCHODILATORS F/U CHEST CT OUTPATIENT ABX PER ID SYMBICORT BID DR REEVES
[2019-07-02] MEDS: dilTIAZem HCL 30 MG TABLET (FP) PO SCH ×2 (13:00→21:40)
[2019-07-02] MEDS: ATORVASTATIN CA 20 MG TABLET (FP) PO SCH (21:40)
[2019-07-03] MEDS: methylPREDNISolone NA SUCC 40 MG/1 ML VIAL IVPUSH SCH ×3 (02:09→21:41)
[2019-07-03] MEDS: dilTIAZem HCL 30 MG TABLET (FP) PO SCH ×3 (05:45→21:41)
[2019-07-03 06:21] LABS: BASO % 0.1 % (0-2.0); EOS % 0.1 % (0-4.5); HEMOGLOBIN 12.2 GM/dL (11.7-16.9); LYMPH % 3.3 % (8-40); MCH 30.4 pg (25.7-33.7); MCHC 32.9 g/dl (32.0-35.9); MEAN CELL VOLUME 92.3 fl (80-96); MEAN PLT VOLUME 7.5 fl (7.5-11.1); MONO % 3.7 % (3.8-10.2); NEUT % 92.8 % (42.8-82.8); PLATELET COUNT 253 K/MM3 (134-434); RBC 4.01 M/mm3 (4.00-5.60); RDW 16.2 % (11.9-15.9); WHITE BLOOD COUNT 6.8 K/mm3 (4.0-10.0)
[2019-07-03 06:49] LABS: CALCIUM 9.1 mg/dL (8.5-10.1); CREATININE 0.8 mg/dL (0.55-1.3); POTASSIUM 5.3 mmol/L (3.5-5.1)
[2019-07-03] MEDS: ALBUTEROL SO4 2.5/IPRATROPIUM 0.5 INH SOL 3 ML VIAL.NEB. NEB SCH ×4 (07:31→20:05)
--- NOTE | 2019-07-03 07:42 | PN ---
Progress Note, Physician Chief Complaint: Patient feels improve now saturating well on NC 2-3 Ltr - Current Medication List Current Medications: Active Medications Acetaminophen (Tylenol -) 650 mg PO Q4H PRN PRN Reason: FEVER Albuterol Sulfate (Ventolin Hfa Inhaler -) 2 puff IH Q4H PRN PRN Reason: SHORT OF BREATH/WHEEZING Albuterol/Ipratropium (Duoneb -) 1 amp NEB RQID [facility] Last Admin: 07/03/19 07:31 Dose: 1 amp Amoxicillin/Clavulanate Potassium (Augmentin - 500mg Tablet) 1 tab PO BID@0800, 1730 [facility] Atorvastatin Calcium (Lipitor -) 20 mg PO HS [facility] Last Admin: 07/02/19 21:40 Dose: 20 mg Budesonide/Formoterol Fumarate (Symbicort 160/4.5mcg -) 1 puff IH BID [facility] Last Admin: 07/02/19 21:39 Dose: 1 puff Clonazepam (Klonopin -) 0.5 mg PO BID [facility] Last Admin: 07/02/19 21:40 Dose: 0.5 mg Diltiazem HCl (Cardizem -) 30 mg PO TID [facility] Last Admin: 07/03/19 05:45 Dose: 30 mg Doxycycline Hyclate (Vibramycin -) 100 mg PO BID@1000,1800 [facility] Last Admin: 07/02/19 17:13 Dose: 100 mg Enoxaparin Sodium (Lovenox -) 40 mg SQ DAILY [facility] Last Admin: 07/02/19 09:12 Dose: 40 mg Folic Acid (Folic Acid -) 1 mg PO DAILY [facility] Last Admin: 07/02/19 09:12 Dose: 1 mg Furosemide (Lasix -) 40 mg PO DAILY [facility] Methotrexate (Mexate -) 15 mg PO Q7D@1000 [facility] Last Admin: 06/28/19 09:46 Dose: 15 mg Methylprednisolone Sodium Succinate (Solu-Medrol -) 40 mg IVPUSH BID [facility] Pantoprazole Sodium (Protonix -) 20 mg PO DAILY [facility] Last Admin: 07/02/19 09:12 Dose: 20 mg Ramipril (Altace -) 5 mg PO DAILY [facility] Last Admin: 07/02/19 09:12 Dose: 5 mg - Objective Vital Signs: Vital Signs Temperature 97.6 F 07/03/19 06:00 Pulse Rate 99 H 07/03/19 06:00 Respiratory Rate 20 07/03/19 06:00 Blood Pressure 107/69 07/03/19 06:00 O2 Sat by Pulse Oximetry (%) 96 07/03/19 07:32 General: Young male in mild respiratory distress. HEENT; mucous membranes moist, no anemia, no jaundice, PERRLA, no nystagmus Neck: No JVD, supple, no bruit, thyroid palpably normal, normal carotid pulsations. Chest: Nontender, bilateral wheezing. CVS: S1-S2 regularno murmur/gallop/rub Abdomen: Nondistended, soft, bowel sounds present. Extremities: + edema., No calf tenderness, pulses present DITCH RIDER: AO X3 , no gross motor sensory deficit Labs: CBC, BMP 07/03/19 05:25 07/03/19 05:25 INR, PTT INR 0.93 (0.83-1.09) 06/28/19 03:20 Problem List - Problems (1) Acute on chronic respiratory failure with hypoxemia Assessment/Plan: Taper IV methylprednisolone 40 mg BID , bronchodilator and pulmonary input Code(s): J96.21 - ACUTE AND CHRONIC RESPIRATORY FAILURE WITH HYPOXIA (2) Pneumonia Assessment/Plan: CT chest showed right lower lobe pneumonia, completed 6 days IV abx will switch to PO augmentin 500 mg BID and Doxycycline Legionella and all bacterial cultures are -ve. Code(s): J18.9 - PNEUMONIA, UNSPECIFIED ORGANISM (3) COPD exacerbation Assessment/Plan: Severe COPD patient was referred for lung transplant, follow-up pulmonary recommendations, bronchodilators and IV hydration. Code(s): J44.1 - CHRONIC OBSTRUCTIVE PULMONARY DISEASE W (ACUTE) EXACERBATION (4) Diastolic CHF Assessment/Plan: Compensated continue Po Lasix 40 mg daily Code(s): I50.30 - UNSPECIFIED DIASTOLIC (CONGESTIVE) HEART FAILURE Qualifiers: Heart failure chronicity: unspecified Qualified Code(s): I50.30 - Unspecified diastolic (congestive) heart failure (5) Hypercholesterolemia Assessment/Plan: Continue statin Code(s): E78.0 - PURE HYPERCHOLESTEROLEMIA * DO NOT USE * (6) CAD (coronary artery disease) Assessment/Plan: Stable Code(s): I25.10 - ATHSCL HEART DISEASE OF [place] CORONARY ARTERY W/O ANG PCTRS (7) Rheumatoid arthritis Assessment/Plan: Cont home medications. Code(s): M06.9 - RHEUMATOID ARTHRITIS, UNSPECIFIED
[2019-07-03] MEDS ORDERED: AMOX TR/POT CLAV 500MG/125MG TABLETS (FP) PO SCH (08:00)
[2019-07-03 09:26] LABS: ANISOCYTOSIS 0; MACROCYTOSIS 0; PLATELET ESTIMATE NORMAL
[2019-07-03] MEDS: RAMIPRIL 5 MG CAPSULE (FP) PO SCH (09:44)
[2019-07-03] MEDS: FOLIC ACID 1 MG TABLET (FP) PO SCH (09:44)
[2019-07-03] MEDS: PANTOPRAZOLE 20 MG TABLET (FP) PO SCH (09:44)
[2019-07-03] MEDS: DOXYCYCLINE HYCLATE 100 MG CAPSULE PO SCH ×2 (09:44→18:26)
[2019-07-03] MEDS: clonazePAM 0.5 MG TABLET PO SCH ×2 (09:44→21:41)
[2019-07-03] MEDS: BUDESONIDE/FORMETEROL FUMARATE 160/4.5 mcg INHALER IH SCH ×2 (09:47→21:43)
[2019-07-03] MEDS: ENOXAPARIN NA (PORCINE) 40 MG/0.4 ML DISP.SYRIN SQ SCH (09:47)
[2019-07-03] MEDS ORDERED: FUROSEMIDE 40 MG TABLET (FP) PO SCH (10:00)
[2019-07-03] MEDS: CEFUROXIME AXETIL 500 MG TABLET PO SCH ×2 (11:43→18:26)
--- NOTE | 2019-07-03 12:14 | PN ---
Progress Note (short form) - Note Progress Note: Awake and alert on NIPPV support. Reports he was placed on this AM due to elevated HR but his breathing felt stable. No CP. Intake & Output 06/30/19 07/01/19 07/02/19 07/03/19 23:59 23:59 23:59 23:59 Intake Total 770 650 640 260 Output Total 1200 1300 1250 Balance -430 -650 -610 260 Weight 126 lb 122 lb 6.4 oz 133 lb 3.2 oz Last Vital Signs Temp Pulse Resp BP Pulse Ox 97.8 F 112 H 22 H 146/72 96 07/03/19 09:05 07/03/19 09:05 07/03/19 09:05 07/03/19 09:05 07/03/19 11:43 Active Medications Acetaminophen (Tylenol -) 650 mg PO Q4H PRN PRN Reason: FEVER Albuterol Sulfate (Ventolin Hfa Inhaler -) 2 puff IH Q4H PRN PRN Reason: SHORT OF BREATH/WHEEZING Albuterol/Ipratropium (Duoneb -) 1 amp NEB RQID [facility] Last Admin: 07/03/19 11:20 Dose: 1 amp Atorvastatin Calcium (Lipitor -) 20 mg PO HS [facility] Last Admin: 07/02/19 21:40 Dose: 20 mg Budesonide/Formoterol Fumarate (Symbicort 160/4.5mcg -) 1 puff IH BID [facility] Last Admin: 07/03/19 09:47 Dose: 1 puff Cefuroxime Axetil (Ceftin -) 500 mg PO BIDWM [facility] Last Admin: 07/03/19 11:43 Dose: 500 mg Clonazepam (Klonopin -) 0.5 mg PO BID [facility] Last Admin: 07/03/19 09:44 Dose: 0.5 mg Diltiazem HCl (Cardizem -) 30 mg PO TID [facility] Last Admin: 07/03/19 05:45 Dose: 30 mg Doxycycline Hyclate (Vibramycin -) 100 mg PO BID@1000,1800 [facility] Last Admin: 07/03/19 09:44 Dose: 100 mg Enoxaparin Sodium (Lovenox -) 40 mg SQ DAILY [facility] Last Admin: 07/03/19 09:47 Dose: 40 mg Folic Acid (Folic Acid -) 1 mg PO DAILY [facility] Last Admin: 07/03/19 09:44 Dose: 1 mg Furosemide (Lasix -) 40 mg PO DAILY [facility] Last Admin: 07/03/19 09:44 Dose: 40 mg Methotrexate (Mexate -) 15 mg PO Q7D@1000 [facility] Last Admin: 06/28/19 09:46 Dose: 15 mg Methylprednisolone Sodium Succinate (Solu-Medrol -) 40 mg IVPUSH BID [facility] Last Admin: 07/03/19 09:47 Dose: 40 mg Pantoprazole Sodium (Protonix -) 20 mg PO DAILY [facility] Last Admin: 07/03/19 09:44 Dose: 20 mg Ramipril (Altace -) 5 mg PO DAILY [facility] Last Admin: 07/03/19 09:44 Dose: 5 mg Constitutional: Yes: Thin, NAD on NIPPV support Eyes: Yes: WNL HENT: Yes: WNL Neck: Yes: WNL Cardiovascular: Yes: Regular Rate and Rhythm, S1, S2 Respiratory: Yes: Scattered Bilateral Rhonchi, no Expiratory Wheezes noted Gastrointestinal: Yes: Normal Bowel Sounds, Soft Edema: Yes Labs: Laboratory Results - last 24 hr 07/03/19 07/03/19 05:25 05:25 WBC 6.8 RBC 4.01 Hgb 12.2 Hct 37.0 MCV 92.3 MCH 30.4 MCHC 32.9 RDW 16.2 H Plt Count 253 MPV 7.5 Absolute Neuts (auto) 6.3 Neutrophils % 92.8 H Neutrophils % (Manual) 93.0 H Band Neutrophils % 0.0 Lymphocytes % 3.3 L Lymphocytes % (Manual) 2.0 L D Monocytes % 3.7 L Monocytes % (Manual) 3 L Eosinophils % 0.1 D Eosinophils % (Manual) 0.0 D Basophils % 0.1 D Basophils % (Manual) 0.0 Myelocytes % (Man) 1 D Promyelocytes % (Man) 0 Blast Cells % (Manual) 0 Nucleated RBC % 0 Metamyelocytes 0 Hypochromia 0 Platelet Estimate Normal Polychromasia 0 Poikilocytosis 0 Anisocytosis 0 Microcytosis 0 Macrocytosis 0 Sodium 136 Potassium 5.3 H Chloride 91 L Carbon Dioxide 43 H Anion Gap 2 L BUN 31.0 H Creatinine 0.8 Est GFR (CKD-EPI)AfAm 110.96 Est GFR (CKD-EPI)NonAf 95.74 Random Glucose 99 Calcium 9.1 Assessment/Plan Problem List - Problems (1) Acute respiratory failure Code(s): J96.00 - ACUTE RESPIRATORY FAILURE, UNSP W HYPOXIA OR HYPERCAPNIA (2) Pneumonia Code(s): J18.9 - PNEUMONIA, UNSPECIFIED ORGANISM (3) Acute on chronic respiratory failure with hypoxia and hypercapnia Code(s): J96.21 - ACUTE AND CHRONIC RESPIRATORY FAILURE WITH HYPOXIA; J96.22 - ACUTE AND CHRONIC RESPIRATORY FAILURE WITH HYPERCAPNIA (4) Anxiety and depression Code(s): F41.9 - ANXIETY DISORDER, UNSPECIFIED; F32.9 - MAJOR DEPRESSIVE DISORDER, SINGLE EPISODE, UNSPECIFIED (5) COPD (chronic obstructive pulmonary disease) Code(s): J44.9 - CHRONIC OBSTRUCTIVE PULMONARY DISEASE, UNSPECIFIED Qualifiers: COPD type: emphysema Emphysema type: unspecified Qualified Code(s): J43.9 - Emphysema, unspecified (6) Cough Code(s): R05 - COUGH (7) Edema Code(s): R60.9 - EDEMA, UNSPECIFIED Qualifiers: Edema type: unspecified Qualified Code(s): R60.9 - Edema, unspecified (8) Rheumatoid arthritis Code(s): M06.9 - RHEUMATOID ARTHRITIS, UNSPECIFIED 8 LLL nodule Assessment/Plan Acute on chronic hypoxemic/hypercapneic resp failure COPD on home 02 HIV/RA on Methotrexate Pneumonia Referred for lung transplant [facility] (patient did not submit paperwork) CABG HTN HLD CHF LLL NODULE NIPPV HS/PRN IV STEROIDS: LEAVE AT CURRENT DOSE BRONCHODILATORS F/U CHEST CT OUTPATIENT ABX PER ID SYMBICORT BID DR REEVES
[2019-07-03] MEDS: ATORVASTATIN CA 20 MG TABLET (FP) PO SCH (21:41)
[2019-07-04] MEDS: dilTIAZem HCL 30 MG TABLET (FP) PO SCH ×3 (05:14→21:15)
[2019-07-04] MEDS: ALBUTEROL SO4 2.5/IPRATROPIUM 0.5 INH SOL 3 ML VIAL.NEB. NEB SCH ×4 (07:25→21:05)
--- NOTE | 2019-07-04 07:32 | PN ---
Progress Note, Physician - Current Medication List Current Medications: Active Medications Acetaminophen (Tylenol -) 650 mg PO Q4H PRN PRN Reason: FEVER Albuterol Sulfate (Ventolin Hfa Inhaler -) 2 puff IH Q4H PRN PRN Reason: SHORT OF BREATH/WHEEZING Albuterol/Ipratropium (Duoneb -) 1 amp NEB RQID [facility] Last Admin: 07/03/19 20:05 Dose: 1 amp Atorvastatin Calcium (Lipitor -) 20 mg PO HS [facility] Last Admin: 07/03/19 21:41 Dose: 20 mg Budesonide/Formoterol Fumarate (Symbicort 160/4.5mcg -) 1 puff IH BID [facility] Last Admin: 07/03/19 21:43 Dose: 1 puff Cefuroxime Axetil (Ceftin -) 500 mg PO BIDWM [facility] Last Admin: 07/03/19 18:26 Dose: 500 mg Clonazepam (Klonopin -) 0.5 mg PO BID [facility] Last Admin: 07/03/19 21:41 Dose: 0.5 mg Diltiazem HCl (Cardizem -) 30 mg PO TID [facility] Last Admin: 07/04/19 05:14 Dose: 30 mg Doxycycline Hyclate (Vibramycin -) 100 mg PO BID@1000,1800 [facility] Last Admin: 07/03/19 18:26 Dose: 100 mg Enoxaparin Sodium (Lovenox -) 40 mg SQ DAILY [facility] Last Admin: 07/03/19 09:47 Dose: 40 mg Folic Acid (Folic Acid -) 1 mg PO DAILY [facility] Last Admin: 07/03/19 09:44 Dose: 1 mg Furosemide (Lasix -) 40 mg PO DAILY [facility] Last Admin: 07/03/19 09:44 Dose: 40 mg Methotrexate (Mexate -) 15 mg PO Q7D@1000 [facility] Last Admin: 06/28/19 09:46 Dose: 15 mg Methylprednisolone Sodium Succinate (Solu-Medrol -) 40 mg IVPUSH BID [facility] Last Admin: 07/03/19 21:41 Dose: 40 mg Pantoprazole Sodium (Protonix -) 20 mg PO DAILY [facility] Last Admin: 07/03/19 09:44 Dose: 20 mg Ramipril (Altace -) 5 mg PO DAILY [facility] Last Admin: 07/03/19 09:44 Dose: 5 mg Tiotropium [place] (Spiriva Respimat) 2 puff IH DAILY [place] - Objective Vital Signs: Vital Signs Temperature 97.8 F 07/04/19 05:32 Pulse Rate 98 H 07/04/19 05:32 Respiratory Rate 20 07/04/19 05:32 Blood Pressure 122/78 07/04/19 05:32 O2 Sat by Pulse Oximetry (%) 98 07/04/19 04:24 General: Young male in mild respiratory distress. HEENT; mucous membranes moist, no anemia, no jaundice, PERRLA, no nystagmus Neck: No JVD, supple, no bruit, thyroid palpably normal, normal carotid pulsations. Chest: Nontender, bilateral wheezing. CVS: S1-S2 regularno murmur/gallop/rub Abdomen: Nondistended, soft, bowel sounds present. Extremities: + edema., No calf tenderness, pulses present BLADE FILER: AO X3 , no gross motor sensory deficit Labs: CBC, BMP 07/03/19 05:25 INR, PTT INR 0.93 (0.83-1.09) 06/28/19 03:20 Problem List - Problems (1) Acute on chronic respiratory failure with hypoxemia Assessment/Plan: Taper IV methylprednisolone 40 mg BID , bronchodilator and pulmonary input Code(s): J96.21 - ACUTE AND CHRONIC RESPIRATORY FAILURE WITH HYPOXIA (2) Pneumonia Assessment/Plan: CT chest showed right lower lobe pneumonia, completed 7 days IV abx will switch to PO ceftin 500 mg BID and Doxycycline Legionella and all bacterial cultures are -ve. Code(s): J18.9 - PNEUMONIA, UNSPECIFIED ORGANISM (3) COPD exacerbation Assessment/Plan: Severe COPD patient was referred for lung transplant, follow-up pulmonary recommendations, bronchodilators and IV hydration.F/U VBG for Hypercarbia add Spiriva Code(s): J44.1 - CHRONIC OBSTRUCTIVE PULMONARY DISEASE W (ACUTE) EXACERBATION (4) Diastolic CHF Assessment/Plan: Compensated continue Po Lasix 20 mg daily Code(s): I50.30 - UNSPECIFIED DIASTOLIC (CONGESTIVE) HEART FAILURE Qualifiers: Heart failure chronicity: unspecified Qualified Code(s): I50.30 - Unspecified diastolic (congestive) heart failure (5) Hypercholesterolemia Assessment/Plan: Continue statin Code(s): E78.0 - PURE HYPERCHOLESTEROLEMIA * DO NOT USE * (6) CAD (coronary artery disease) Assessment/Plan: Stable Code(s): I25.10 - ATHSCL HEART DISEASE OF [place] CORONARY ARTERY W/O ANG PCTRS (7) Rheumatoid arthritis Assessment/Plan: Cont home medications. Problems reviewed: Yes Code(s): M06.9 - RHEUMATOID ARTHRITIS, UNSPECIFIED (8) Hypercarbia Assessment/Plan: Due to advanced COPD will decrease Lasix to 20 mg F/U VBG Problems reviewed: Yes Code(s): R06.89 - OTHER ABNORMALITIES OF BREATHING
[2019-07-04 07:39] LABS: BLOOD UREA NITROGEN 28.6 mg/dL (7-18); CALCIUM 9.1 mg/dL (8.5-10.1); CREATININE 0.8 mg/dL (0.55-1.3)
[2019-07-04] MEDS: RAMIPRIL 5 MG CAPSULE (FP) PO SCH (10:44)
[2019-07-04] MEDS: methylPREDNISolone NA SUCC 40 MG/1 ML VIAL IVPUSH SCH ×2 (10:44→21:15)
[2019-07-04] MEDS: clonazePAM 0.5 MG TABLET PO SCH ×2 (10:44→21:15)
[2019-07-04] MEDS: DOXYCYCLINE HYCLATE 100 MG CAPSULE PO SCH ×2 (10:44→18:17)
[2019-07-04] MEDS: FOLIC ACID 1 MG TABLET (FP) PO SCH (10:44)
[2019-07-04] MEDS: FUROSEMIDE 20 MG TABLET (FP) PO SCH (10:44)
[2019-07-04] MEDS: PANTOPRAZOLE 20 MG TABLET (FP) PO SCH (10:44)
[2019-07-04] MEDS: TIOTROPIUM BROMIDE 2.5 MCG (SPIRIVA) RESPIMAT INHALER IH SCH (10:45)
[2019-07-04] MEDS: ENOXAPARIN NA (PORCINE) 40 MG/0.4 ML DISP.SYRIN SQ SCH (10:45)
[2019-07-04] MEDS: BUDESONIDE/FORMETEROL FUMARATE 160/4.5 mcg INHALER IH SCH ×2 (10:45→21:15)
[2019-07-04] MEDS ORDERED: PT OWN MED DRAWER 7, Y5N ONE ×2 (10:47→12:31)
[2019-07-04] MEDS: CEFUROXIME AXETIL 500 MG TABLET PO SCH ×2 (12:32→18:17)
--- NOTE | 2019-07-04 12:47 | PN ---
Progress Note (short form) - Note Progress Note: Awake and alert mildly dyspneic at rest and increases with with speaking. Used NIPPV overnight. No CP. Intake & Output 07/01/19 07/02/19 07/03/19 07/04/19 23:59 23:59 23:59 23:59 Intake Total 650 640 520 250 Output Total 1300 1250 Balance -650 -610 520 250 Weight 122 lb 6.4 oz 133 lb 3.2 oz Last Vital Signs Temp Pulse Resp BP Pulse Ox 97.8 F 98 H 20 122/78 99 07/04/19 05:32 07/04/19 05:32 07/04/19 05:32 07/04/19 05:32 07/04/19 11:48 Active Medications Acetaminophen (Tylenol -) 650 mg PO Q4H PRN PRN Reason: FEVER Albuterol Sulfate (Ventolin Hfa Inhaler -) 2 puff IH Q4H PRN PRN Reason: SHORT OF BREATH/WHEEZING Albuterol/Ipratropium (Duoneb -) 1 amp NEB RQID [facility] Last Admin: 07/04/19 11:49 Dose: 1 amp Atorvastatin Calcium (Lipitor -) 20 mg PO HS [facility] Last Admin: 07/03/19 21:41 Dose: 20 mg Budesonide/Formoterol Fumarate (Symbicort 160/4.5mcg -) 1 puff IH BID [facility] Last Admin: 07/04/19 10:45 Dose: 1 puff Cefuroxime Axetil (Ceftin -) 500 mg PO BIDWM [facility] Last Admin: 07/04/19 12:32 Dose: 500 mg Clonazepam (Klonopin -) 0.5 mg PO BID [facility] Last Admin: 07/04/19 10:44 Dose: 0.5 mg Diltiazem HCl (Cardizem -) 30 mg PO TID [facility] Last Admin: 07/04/19 05:14 Dose: 30 mg Doxycycline Hyclate (Vibramycin -) 100 mg PO BID@1000,1800 [facility] Last Admin: 07/04/19 10:44 Dose: 100 mg Enoxaparin Sodium (Lovenox -) 40 mg SQ DAILY [facility] Last Admin: 07/04/19 10:45 Dose: 40 mg Folic Acid (Folic Acid -) 1 mg PO DAILY [facility] Last Admin: 07/04/19 10:44 Dose: 1 mg Furosemide (Lasix -) 20 mg PO DAILY [facility] Last Admin: 07/04/19 10:44 Dose: 20 mg Methotrexate (Mexate -) 15 mg PO Q7D@1000 [facility] Last Admin: 06/28/19 09:46 Dose: 15 mg Methylprednisolone Sodium Succinate (Solu-Medrol -) 40 mg IVPUSH BID [facility] Last Admin: 07/04/19 10:44 Dose: 40 mg Pantoprazole Sodium (Protonix -) 20 mg PO DAILY [facility] Last Admin: 07/04/19 10:44 Dose: 20 mg Ramipril (Altace -) 5 mg PO DAILY [facility] Last Admin: 07/04/19 10:44 Dose: 5 mg Tiotropium [place] (Spiriva Respimat) 2 puff IH DAILY [facility] Last Admin: 07/04/19 10:45 Dose: 2 puff Constitutional: Yes: Thin, Mildly dyspneic at rest Eyes: Yes: WNL HENT: Yes: WNL Neck: Yes: WNL Cardiovascular: Yes: Regular Rate and Rhythm, S1, S2 Respiratory: Yes: Scattered Bilateral Rhonchi, no Expiratory Wheezes noted Gastrointestinal: Yes: Normal Bowel Sounds, Soft Edema: Yes Labs: Laboratory Results - last 24 hr 06/28/19 07/04/19 16:15 05:30 Sodium 138 Potassium 5.0 Chloride 93 L Carbon Dioxide 43 H Anion Gap 2 L BUN 28.6 H Creatinine 0.8 Est GFR (CKD-EPI)AfAm 110.96 Est GFR (CKD-EPI)NonAf 95.74 Random Glucose 112 H Calcium 9.1 Procalcitonin 0.04 Assessment/Plan Problem List - Problems (1) Acute respiratory failure Code(s): J96.00 - ACUTE RESPIRATORY FAILURE, UNSP W HYPOXIA OR HYPERCAPNIA (2) Pneumonia Code(s): J18.9 - PNEUMONIA, UNSPECIFIED ORGANISM (3) Acute on chronic respiratory failure with hypoxia and hypercapnia Code(s): J96.21 - ACUTE AND CHRONIC RESPIRATORY FAILURE WITH HYPOXIA; J96.22 - ACUTE AND CHRONIC RESPIRATORY FAILURE WITH HYPERCAPNIA (4) Anxiety and depression Code(s): F41.9 - ANXIETY DISORDER, UNSPECIFIED; F32.9 - MAJOR DEPRESSIVE DISORDER, SINGLE EPISODE, UNSPECIFIED (5) COPD (chronic obstructive pulmonary disease) Code(s): J44.9 - CHRONIC OBSTRUCTIVE PULMONARY DISEASE, UNSPECIFIED Qualifiers: COPD type: emphysema Emphysema type: unspecified Qualified Code(s): J43.9 - Emphysema, unspecified (6) Cough Code(s): R05 - COUGH (7) Edema Code(s): R60.9 - EDEMA, UNSPECIFIED Qualifiers: Edema type: unspecified Qualified Code(s): R60.9 - Edema, unspecified (8) Rheumatoid arthritis Code(s): M06.9 - RHEUMATOID ARTHRITIS, UNSPECIFIED 8 LLL nodule Assessment/Plan Acute on chronic hypoxemic/hypercapneic resp failure COPD on home 02 HIV/RA on Methotrexate Pneumonia Referred for lung transplant [facility] (patient did not submit paperwork) CABG HTN HLD CHF LLL NODULE ABG NIPPV HS/PRN IV STEROIDS: LEAVE AT CURRENT DOSE BRONCHODILATORS F/U CHEST CT OUTPATIENT ABX PER ID SYMBICORT BID DR REEVES
[2019-07-04 15:13] LABS: ARTERIAL BLD GAS O2 SATURATION 97.1 % (95-98); ARTERIAL BLOOD GAS BASE EXCESS 12.2 meq/l (-2-2); ARTERIAL BLOOD GAS PCO2 59.2 mmHg (35-45); ARTERIAL BLOOD GAS pH 7.43 (7.35-7.45)
[2019-07-04 15:16] LABS: ALLENS TEST POSITIVE
[2019-07-04] MEDS: ATORVASTATIN CA 20 MG TABLET (FP) PO SCH (21:15)
[2019-07-04 23:30] VITALS: BMI 22.8
[2019-07-05] MEDS: dilTIAZem HCL 30 MG TABLET (FP) PO SCH ×3 (06:36→21:37)
[2019-07-05 07:20] LABS: HEMATOCRIT 36.3 % (35.4-49); HEMOGLOBIN 11.9 GM/dL (11.7-16.9); LYMPH % 3.7 % (8-40); MCH 30.2 pg (25.7-33.7); MCHC 32.6 g/dl (32.0-35.9); MEAN CELL VOLUME 92.7 fl (80-96); MEAN PLT VOLUME 7.8 fl (7.5-11.1); MONO % 6.3 % (3.8-10.2); PLATELET COUNT 258 K/MM3 (134-434); RBC 3.92 M/mm3 (4.00-5.60); RDW 16.4 % (11.9-15.9); WHITE BLOOD COUNT 12.9 K/mm3 (4.0-10.0)
[2019-07-05] MEDS ORDERED: PT OWN MED DRAWER 7, Y5N ONE ×3 (07:31→17:10)
[2019-07-05] MEDS: ALBUTEROL SO4 2.5/IPRATROPIUM 0.5 INH SOL 3 ML VIAL.NEB. NEB SCH ×4 (08:10→21:10)
[2019-07-05 08:27] LABS: BLOOD UREA NITROGEN 29.6 mg/dL (7-18); CALCIUM 9.2 mg/dL (8.5-10.1); CREATININE 0.8 mg/dL (0.55-1.3); POTASSIUM 4.9 mmol/L (3.5-5.1)
[2019-07-05] MEDS: ENOXAPARIN NA (PORCINE) 40 MG/0.4 ML DISP.SYRIN SQ SCH (09:35)
[2019-07-05] MEDS: FOLIC ACID 1 MG TABLET (FP) PO SCH (09:35)
[2019-07-05] MEDS: methylPREDNISolone NA SUCC 40 MG/1 ML VIAL IVPUSH SCH ×2 (09:35→21:38)
[2019-07-05] MEDS: PANTOPRAZOLE 20 MG TABLET (FP) PO SCH (09:35)
[2019-07-05] MEDS: FUROSEMIDE 20 MG TABLET (FP) PO SCH (09:35)
[2019-07-05] MEDS: RAMIPRIL 5 MG CAPSULE (FP) PO SCH (09:35)
[2019-07-05] MEDS: DOXYCYCLINE HYCLATE 100 MG CAPSULE PO SCH ×2 (09:35→17:18)
[2019-07-05] MEDS: clonazePAM 0.5 MG TABLET PO SCH ×2 (09:35→21:38)
[2019-07-05] MEDS: CEFUROXIME AXETIL 500 MG TABLET PO SCH ×2 (09:36→17:18)
[2019-07-05] MEDS: METHOTREXATE 2.5 MG TABLET PO SCH (09:36)
[2019-07-05] MEDS: TIOTROPIUM BROMIDE 2.5 MCG (SPIRIVA) RESPIMAT INHALER IH SCH (09:41)
[2019-07-05] MEDS: BUDESONIDE/FORMETEROL FUMARATE 160/4.5 mcg INHALER IH SCH ×2 (09:42→21:39)
[2019-07-05 12:07] LABS: ANISOCYTOSIS 1+; MACROCYTOSIS 1+; OVALOCYTE 1+; PLATELET ESTIMATE NORMAL
--- NOTE | 2019-07-05 14:24 | PN ---
Progress Note (short form) - Note Progress Note: PULMONARY States breathing slighty worse than yesterday. Feels weak. +nonproductive cough. Vital Signs Period Temp Pulse Resp BP Sys/Ellison Pulse Ox Last 24 Hr 97.8 F-98.2 F 93-115 20-20 90-106/54-70 97-100 Gen: tachypneic with speaking Heart: RRR Lung: distant breath sounds Abd: soft, nontender Ext: no edema CBC, BMP 07/05/19 06:08 07/05/19 06:08 Active Medications Acetaminophen (Tylenol -) 650 mg PO Q4H PRN PRN Reason: FEVER Albuterol Sulfate (Ventolin Hfa Inhaler -) 2 puff IH Q4H PRN PRN Reason: SHORT OF BREATH/WHEEZING Albuterol/Ipratropium (Duoneb -) 1 amp NEB RQID [facility] Last Admin: 07/05/19 13:23 Dose: 1 amp Atorvastatin Calcium (Lipitor -) 20 mg PO HS [facility] Last Admin: 07/04/19 21:15 Dose: 20 mg Budesonide/Formoterol Fumarate (Symbicort 160/4.5mcg -) 1 puff IH BID [facility] Last Admin: 07/05/19 09:42 Dose: 1 puff Cefuroxime Axetil (Ceftin -) 500 mg PO BIDWM [facility] Last Admin: 07/05/19 09:36 Dose: 500 mg Clonazepam (Klonopin -) 0.5 mg PO BID [facility] Last Admin: 07/05/19 09:35 Dose: 0.5 mg Diltiazem HCl (Cardizem -) 30 mg PO TID [facility] Last Admin: 07/05/19 13:55 Dose: 30 mg Doxycycline Hyclate (Vibramycin -) 100 mg PO BID@1000,1800 [facility] Last Admin: 07/05/19 09:35 Dose: 100 mg Enoxaparin Sodium (Lovenox -) 40 mg SQ DAILY [facility] Last Admin: 07/05/19 09:35 Dose: 40 mg Folic Acid (Folic Acid -) 1 mg PO DAILY [facility] Last Admin: 07/05/19 09:35 Dose: 1 mg Furosemide (Lasix -) 20 mg PO DAILY [facility] Last Admin: 07/05/19 09:35 Dose: 20 mg Methotrexate (Mexate -) 15 mg PO Q7D@1000 [facility] Last Admin: 07/05/19 09:36 Dose: 15 mg Methylprednisolone Sodium Succinate (Solu-Medrol -) 40 mg IVPUSH BID [facility] Last Admin: 07/05/19 09:35 Dose: 40 mg Pantoprazole Sodium (Protonix -) 20 mg PO DAILY [facility] Last Admin: 07/05/19 09:35 Dose: 20 mg Ramipril (Altace -) 5 mg PO DAILY [facility] Last Admin: 07/05/19 09:35 Dose: 5 mg Tiotropium [place] (Spiriva Respimat) 2 puff IH DAILY [facility] Last Admin: 07/05/19 09:41 Dose: 2 puff A/P Acute on Chronic Hypoxic and Hypercapneic Respiratory Failure Acute COPD Exacerbation Pneumonia Rheumatoid Arthritis CAD s/p CABG Lung Nodule LV Diastolic Dysfunction Pulmonary HTN HTN Hyperlipidemia Pt does NOT have HIV - continue medrol at current dose - inhaled bronchodilators - complete antibiotics - O2 to keep SpO2 >90% - BiPAP as needed to assist in work of breathing - DVT prophylaxis
--- NOTE | 2019-07-05 17:44 | PN ---
Progress Note, Physician Chief Complaint: today feels more SOB and cough with expectoration , afebrile - Current Medication List Current Medications: Active Medications Acetaminophen (Tylenol -) 650 mg PO Q4H PRN PRN Reason: FEVER Albuterol Sulfate (Ventolin Hfa Inhaler -) 2 puff IH Q4H PRN PRN Reason: SHORT OF BREATH/WHEEZING Albuterol/Ipratropium (Duoneb -) 1 amp NEB RQID [facility] Last Admin: 07/05/19 17:22 Dose: 1 amp Atorvastatin Calcium (Lipitor -) 20 mg PO HS [facility] Last Admin: 07/04/19 21:15 Dose: 20 mg Budesonide/Formoterol Fumarate (Symbicort 160/4.5mcg -) 1 puff IH BID [facility] Last Admin: 07/05/19 09:42 Dose: 1 puff Cefuroxime Axetil (Ceftin -) 500 mg PO BIDWM [facility] Last Admin: 07/05/19 17:18 Dose: 500 mg Clonazepam (Klonopin -) 0.5 mg PO BID [facility] Last Admin: 07/05/19 09:35 Dose: 0.5 mg Diltiazem HCl (Cardizem -) 30 mg PO TID [facility] Last Admin: 07/05/19 13:55 Dose: 30 mg Doxycycline Hyclate (Vibramycin -) 100 mg PO BID@1000,1800 [facility] Last Admin: 07/05/19 17:18 Dose: 100 mg Enoxaparin Sodium (Lovenox -) 40 mg SQ DAILY [facility] Last Admin: 07/05/19 09:35 Dose: 40 mg Folic Acid (Folic Acid -) 1 mg PO DAILY [facility] Last Admin: 07/05/19 09:35 Dose: 1 mg Furosemide (Lasix -) 20 mg PO DAILY [facility] Last Admin: 07/05/19 09:35 Dose: 20 mg Methotrexate (Mexate -) 15 mg PO Q7D@1000 [facility] Last Admin: 07/05/19 09:36 Dose: 15 mg Methylprednisolone Sodium Succinate (Solu-Medrol -) 40 mg IVPUSH BID [facility] Last Admin: 07/05/19 09:35 Dose: 40 mg Pantoprazole Sodium (Protonix -) 20 mg PO DAILY [facility] Last Admin: 07/05/19 09:35 Dose: 20 mg Ramipril (Altace -) 5 mg PO DAILY [facility] Last Admin: 07/05/19 09:35 Dose: 5 mg Tiotropium [place] (Spiriva Respimat) 2 puff IH DAILY [facility] Last Admin: 07/05/19 09:41 Dose: 2 puff - Objective Vital Signs: Vital Signs Temperature 98.8 F 07/05/19 14:00 Pulse Rate 110 H 07/05/19 14:00 Respiratory Rate 07/05/19 14:00 Blood Pressure 97/65 07/05/19 14:00 O2 Sat by Pulse Oximetry (%) 96 07/05/19 17:28 Labs: CBC, BMP 07/05/19 06:08 07/05/19 06:08 INR, PTT INR 0.93 (0.83-1.09) 06/28/19 03:20 Problem List - Problems (1) Acute on chronic respiratory failure with hypoxemia Assessment/Plan: Taper IV methylprednisolone 40 mg BID , bronchodilator and pulmonary input Code(s): J96.21 - ACUTE AND CHRONIC RESPIRATORY FAILURE WITH HYPOXIA (2) Pneumonia Assessment/Plan: today c/o cough and SOB cont curret abx will F/U CXR and sputum culture Code(s): J18.9 - PNEUMONIA, UNSPECIFIED ORGANISM (3) COPD exacerbation Assessment/Plan: Severe COPD patient was referred for lung transplant, follow-up pulmonary recommendations, bronchodilators and IV hydration.F/U VBG for Hypercarbia added Spiriva Code(s): J44.1 - CHRONIC OBSTRUCTIVE PULMONARY DISEASE W (ACUTE) EXACERBATION (4) Diastolic CHF Assessment/Plan: Compensated continue Po Lasix 20 mg daily Code(s): I50.30 - UNSPECIFIED DIASTOLIC (CONGESTIVE) HEART FAILURE Qualifiers: Heart failure chronicity: unspecified Qualified Code(s): I50.30 - Unspecified diastolic (congestive) heart failure (5) Hypercholesterolemia Assessment/Plan: Continue statin Code(s): E78.0 - PURE HYPERCHOLESTEROLEMIA * DO NOT USE * (6) CAD (coronary artery disease) Assessment/Plan: Stable Code(s): I25.10 - ATHSCL HEART DISEASE OF [place] CORONARY ARTERY W/O ANG PCTRS (7) Rheumatoid arthritis Assessment/Plan: Cont home medications. Code(s): M06.9 - RHEUMATOID ARTHRITIS, UNSPECIFIED (8) Hypercarbia Assessment/Plan: Due to advanced COPD will decrease Lasix to 20 mg Code(s): R06.89 - OTHER ABNORMALITIES OF BREATHING
[2019-07-05] MEDS: ATORVASTATIN CA 20 MG TABLET (FP) PO SCH (21:38)
[2019-07-06] MEDS: dilTIAZem HCL 30 MG TABLET (FP) PO SCH ×3 (05:59→22:18)
[2019-07-06 07:35] LABS: BASO % 0.1 % (0-2.0); HEMATOCRIT 38.5 % (35.4-49); HEMOGLOBIN 12.7 GM/dL (11.7-16.9); LYMPH % 2.2 % (8-40); MCH 30.5 pg (25.7-33.7); MCHC 32.9 g/dl (32.0-35.9); MEAN CELL VOLUME 92.7 fl (80-96); MEAN PLT VOLUME 8.5 fl (7.5-11.1); MONO % 3.2 % (3.8-10.2); NEUT % 94.5 % (42.8-82.8); PLATELET COUNT 317 K/MM3 (134-434); RBC 4.16 M/mm3 (4.00-5.60); RDW 16.2 % (11.9-15.9); WHITE BLOOD COUNT 16.4 K/mm3 (4.0-10.0)
[2019-07-06 08:12] LABS: BLOOD UREA NITROGEN 33.6 mg/dL (7-18); CALCIUM 9.6 mg/dL (8.5-10.1); CREATININE 0.8 mg/dL (0.55-1.3); POTASSIUM 5.6 mmol/L (3.5-5.1)
[2019-07-06] MEDS: ALBUTEROL SO4 2.5/IPRATROPIUM 0.5 INH SOL 3 ML VIAL.NEB. NEB SCH ×4 (08:59→20:40)
[2019-07-06 09:03] LABS: ANISOCYTOSIS 0; MACROCYTOSIS 0; PLATELET ESTIMATE NORMAL
[2019-07-06] MEDS: ENOXAPARIN NA (PORCINE) 40 MG/0.4 ML DISP.SYRIN SQ SCH (09:05)
[2019-07-06] MEDS: methylPREDNISolone NA SUCC 40 MG/1 ML VIAL IVPUSH SCH ×2 (09:05→22:17)
[2019-07-06] MEDS: RAMIPRIL 5 MG CAPSULE (FP) PO SCH (09:05)
[2019-07-06] MEDS: clonazePAM 0.5 MG TABLET PO SCH ×2 (09:06→22:17)
[2019-07-06] MEDS: FUROSEMIDE 20 MG TABLET (FP) PO SCH (09:06)
[2019-07-06] MEDS: FOLIC ACID 1 MG TABLET (FP) PO SCH (09:06)
[2019-07-06] MEDS: DOXYCYCLINE HYCLATE 100 MG CAPSULE PO SCH ×2 (09:06→17:57)
[2019-07-06] MEDS: PANTOPRAZOLE 20 MG TABLET (FP) PO SCH (09:06)
[2019-07-06] MEDS: CEFUROXIME AXETIL 500 MG TABLET PO SCH ×2 (09:16→17:57)
[2019-07-06] MEDS: TIOTROPIUM BROMIDE 2.5 MCG (SPIRIVA) RESPIMAT INHALER IH SCH (09:24)
[2019-07-06] MEDS: BUDESONIDE/FORMETEROL FUMARATE 160/4.5 mcg INHALER IH SCH ×2 (09:24→22:18)
--- NOTE | 2019-07-06 11:42 | PN ---
Progress Note (short form) - Note Progress Note: Awake and alert mildly dyspneic at rest and increases with with speaking. Said he went onto the commode today and felt less SOB. Used NIPPV overnight. No CP. Intake & Output 07/03/19 07/04/19 07/05/19 07/06/19 23:59 23:59 23:59 23:59 Intake Total 520 760 480 50 Output Total 200 Balance 520 760 480 -150 Weight 133 lb 3.2 oz 122 lb Last Vital Signs Temp Pulse Resp BP Pulse Ox 98.0 F 90 22 H 120/70 98 07/06/19 10:00 07/06/19 10:00 07/06/19 10:00 07/06/19 10:00 07/05/19 22:00 Active Medications Acetaminophen (Tylenol -) 650 mg PO Q4H PRN PRN Reason: FEVER Albuterol Sulfate (Ventolin Hfa Inhaler -) 2 puff IH Q4H PRN PRN Reason: SHORT OF BREATH/WHEEZING Albuterol/Ipratropium (Duoneb -) 1 amp NEB RQID [facility] Last Admin: 07/06/19 08:59 Dose: 1 amp Atorvastatin Calcium (Lipitor -) 20 mg PO HS [facility] Last Admin: 07/05/19 21:38 Dose: 20 mg Budesonide/Formoterol Fumarate (Symbicort 160/4.5mcg -) 2 puff IH BID [facility] Cefuroxime Axetil (Ceftin -) 500 mg PO BIDWM [facility] Last Admin: 07/06/19 09:16 Dose: 500 mg Clonazepam (Klonopin -) 0.5 mg PO BID [facility] Last Admin: 07/06/19 09:06 Dose: 0.5 mg Diltiazem HCl (Cardizem -) 30 mg PO TID [facility] Last Admin: 07/06/19 05:59 Dose: 30 mg Doxycycline Hyclate (Vibramycin -) 100 mg PO BID@1000,1800 [facility] Last Admin: 07/06/19 09:06 Dose: 100 mg Enoxaparin Sodium (Lovenox -) 40 mg SQ DAILY [facility] Last Admin: 07/06/19 09:05 Dose: 40 mg Folic Acid (Folic Acid -) 1 mg PO DAILY [facility] Last Admin: 07/06/19 09:06 Dose: 1 mg Furosemide (Lasix -) 20 mg PO DAILY [facility] Last Admin: 07/06/19 09:06 Dose: 20 mg Methotrexate (Mexate -) 15 mg PO Q7D@1000 [facility] Last Admin: 07/05/19 09:36 Dose: 15 mg Methylprednisolone Sodium Succinate (Solu-Medrol -) 40 mg IVPUSH BID [facility] Last Admin: 07/06/19 09:05 Dose: 40 mg Pantoprazole Sodium (Protonix -) 20 mg PO DAILY [facility] Last Admin: 07/06/19 09:06 Dose: 20 mg Ramipril (Altace -) 5 mg PO DAILY [facility] Last Admin: 07/06/19 09:05 Dose: 5 mg Tiotropium [place] (Spiriva Respimat) 2 puff IH DAILY [facility] Last Admin: 07/06/19 09:24 Dose: 2 puff Constitutional: Yes: Thin, Mildly dyspneic at rest Eyes: Yes: WNL HENT: Yes: WNL Neck: Yes: WNL Cardiovascular: Yes: Regular Rate and Rhythm, S1, S2 Respiratory: Yes: Scattered Bilateral Rhonchi, no Expiratory Wheezes noted Gastrointestinal: Yes: Normal Bowel Sounds, Soft Edema: Yes Labs: Laboratory Results - last 24 hr 07/05/19 07/06/19 07/06/19 06:08 06:20 06:20 WBC 16.4 H RBC 4.16 Hgb 12.7 Hct 38.5 MCV 92.7 MCH 30.5 MCHC 32.9 RDW 16.2 H Plt Count 317 D MPV 8.5 Absolute Neuts (auto) 15.5 H Neutrophils % 94.5 H Neutrophils % (Manual) 91.2 H 88.0 H Band Neutrophils % 0.0 3.0 Lymphocytes % 2.2 L D Lymphocytes % (Manual) 3.9 L D 2.0 L D Monocytes % 3.2 L Monocytes % (Manual) 5 5 Eosinophils % 0.0 Eosinophils % (Manual) 0.0 0.0 Basophils % 0.1 D Basophils % (Manual) 0.0 0.0 Myelocytes % (Man) 0 D 0 Promyelocytes % (Man) 0 1 D Blast Cells % (Manual) 0 0 Nucleated RBC % 0 Metamyelocytes 0 1 D Hypochromia 0 0 Platelet Estimate Normal Normal Polychromasia 0 0 Poikilocytosis 1+ 0 Anisocytosis 1+ 0 Microcytosis 0 0 Macrocytosis 1+ 0 Ovalocytes 1+ Sodium 137 Potassium 5.6 H Chloride 95 L Carbon Dioxide 40 H Anion Gap 2 L BUN 33.6 H Creatinine 0.8 Est GFR (CKD-EPI)AfAm 110.96 Est GFR (CKD-EPI)NonAf 95.74 Random Glucose 111 H Calcium 9.6 Assessment/Plan Problem List - Problems (1) Acute respiratory failure Code(s): J96.00 - ACUTE RESPIRATORY FAILURE, UNSP W HYPOXIA OR HYPERCAPNIA (2) Pneumonia Code(s): J18.9 - PNEUMONIA, UNSPECIFIED ORGANISM (3) Acute on chronic respiratory failure with hypoxia and hypercapnia Code(s): J96.21 - ACUTE AND CHRONIC RESPIRATORY FAILURE WITH HYPOXIA; J96.22 - ACUTE AND CHRONIC RESPIRATORY FAILURE WITH HYPERCAPNIA (4) Anxiety and depression Code(s): F41.9 - ANXIETY DISORDER, UNSPECIFIED; F32.9 - MAJOR DEPRESSIVE DISORDER, SINGLE EPISODE, UNSPECIFIED (5) COPD (chronic obstructive pulmonary disease) Code(s): J44.9 - CHRONIC OBSTRUCTIVE PULMONARY DISEASE, UNSPECIFIED Qualifiers: COPD type: emphysema Emphysema type: unspecified Qualified Code(s): J43.9 - Emphysema, unspecified (6) Cough Code(s): R05 - COUGH (7) Edema Code(s): R60.9 - EDEMA, UNSPECIFIED Qualifiers: Edema type: unspecified Qualified Code(s): R60.9 - Edema, unspecified (8) Rheumatoid arthritis Code(s): M06.9 - RHEUMATOID ARTHRITIS, UNSPECIFIED 8 LLL nodule Assessment/Plan Acute on chronic hypoxemic/hypercapneic resp failure COPD on home 02 HIV/RA on Methotrexate Pneumonia Referred for lung transplant [facility] (patient did not submit paperwork) CABG HTN HLD CHF LLL NODULE ABG NIPPV HS/PRN IV STEROIDS: LEAVE AT CURRENT DOSE : CAN TRIAL PREDNISONE ON NEXT 24 TO 48 HOURS BRONCHODILATORS F/U CHEST CT OUTPATIENT ABX PER ID SYMBICORT BID HIGH RISK FOR READMISSION CONSIDER INPATIENT PULMONARY REHAB DR REEVES
[2019-07-06] MEDS ORDERED: PT OWN MED DRAWER 7, Y5N ONE (17:08)
--- NOTE | 2019-07-06 17:17 | PN ---
Progress Note (short form) - Note Progress Note: asked to f/u for leukocytosis feels much improved today ambulated, wearing NC +BM this am no diarrhea Vital Signs Period Temp Pulse Resp BP Sys/Ellison Pulse Ox Last 24 Hr 97.4 F-98.0 F 90-118 20-22 97-146/54-75 96-98 no thrush cor rrr lungs decreased bs at bases abd soft,nt ext no edema CBC, BMP 07/06/19 06:20 07/06/19 06:20 Microbiology 07/05/19 18:00 Sputum - Expectorated Gram Stain - Final 06/28/19 00:01 Blood - Peripheral Venous Blood Culture - Final NO GROWTH AFTER 5 DAYS INCUBATION 06/28/19 00:00 Blood - Peripheral Venous Blood Culture - Final NO GROWTH AFTER 5 DAYS INCUBATION 06/29/19 20:10 Urine For Antigen Detection Legionella Antigen - Final 06/29/19 20:10 Urine For Antigen Detection Streptococcus pneumoniae Antigen (M - Final 06/28/19 14:15 Sputum - Expectorated Gram Stain - Final 06/28/19 14:15 Sputum - Expectorated Sputum Culture - Final NORMAL RESPIRATORY SULEMA 06/28/19 05:15 Urine - Urine Clean Catch Urine Culture - Final NO GROWTH OBTAINED cxray 07/05 unchanged, basilar atelectasis a/p leukoctosis but clinically improving suspect increased wbc due to steroids, will observe on present meds if clinically he worsens would get repeat chest ct small RLL pneumonia-on ceftin/doxy copd exacerbation chf exacerbation he is HIV negative - tested last admission-
--- NOTE | 2019-07-06 17:23 | PN ---
Progress Note, Physician Chief Complaint: Feels bettr since yeserday move out of the bed , afebrile - Current Medication List Current Medications: Active Medications Acetaminophen (Tylenol -) 650 mg PO Q4H PRN PRN Reason: FEVER Albuterol Sulfate (Ventolin Hfa Inhaler -) 2 puff IH Q4H PRN PRN Reason: SHORT OF BREATH/WHEEZING Albuterol/Ipratropium (Duoneb -) [address] [facility] Last Admin: 07/06/19 17:14 Dose: 1 amp Atorvastatin Calcium (Lipitor -) [address] [facility] Last Admin: 07/05/19 21:38 Dose: 20 mg Budesonide/Formoterol Fumarate (Symbicort 160/4.5mcg -) [address] [facility] Cefuroxime Axetil (Ceftin -) [address] [facility] Last Admin: 07/06/19 09:16 Dose: 500 mg Clonazepam (Klonopin -) 0.[address] [facility] Last Admin: 07/06/19 09:06 Dose: 0.5 mg Diltiazem HCl (Cardizem -) [address] [facility] Last Admin: 07/06/19 14:13 Dose: 30 mg Doxycycline Hyclate (Vibramycin -) 100 mg PO BID@1000,1800 [facility] Last Admin: 07/06/19 09:06 Dose: 100 mg Enoxaparin Sodium (Lovenox -) [address] [facility] Last Admin: 07/06/19 09:05 Dose: 40 mg Folic Acid (Folic Acid -) [address] [facility] Last Admin: 07/06/19 09:06 Dose: 1 mg Furosemide (Lasix -) [address] [facility] Last Admin: 07/06/19 09:06 Dose: 20 mg Methotrexate (Mexate -) 15 mg PO Q7D@1000 [facility] Last Admin: 07/05/19 09:36 Dose: 15 mg Methylprednisolone Sodium Succinate (Solu-Medrol -) [address] [facility] Last Admin: 07/06/19 09:05 Dose: 40 mg Pantoprazole Sodium (Protonix -) [address] [facility] Last Admin: 07/06/19 09:06 Dose: 20 mg Ramipril (Altace -) [address] [facility] Last Admin: 07/06/19 09:05 Dose: 5 mg Tiotropium [place] (Spiriva Respimat) 2 puff IH DAILY [facility] Last Admin: 07/06/19 09:24 Dose: 2 puff - Objective Vital Signs: Vital Signs Temperature 97.9 F 07/06/19 14:14 Pulse Rate 118 H 07/06/19 14:14 Respiratory Rate 22 H 07/06/19 14:14 Blood Pressure 146/54 L 07/06/19 14:14 O2 Sat by Pulse Oximetry (%) 98 07/06/19 10:00 General: Young male in mild respiratory distress. HEENT; mucous membranes moist, no anemia, no jaundice, PERRLA, no nystagmus Neck: No JVD, supple, no bruit, thyroid palpably normal, normal carotid pulsations. Chest: Nontender, bilateral wheezing. CVS: S1-S2 regular no murmur/gallop/rub Abdomen: Nondistended, soft, bowel sounds present. 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 , no gross motor sensory deficit Labs: CBC, BMP 07/06/19 06:20 07/06/19 06:20 INR, PTT INR 0.93 (0.83-1.09) 06/28/19 03:20 Problem List - Problems (1) Acute on chronic respiratory failure with hypoxemia Assessment/Plan: Taper IV methylprednisolone 40 mg BID , bronchodilator and pulmonary input Code(s): J96.21 - ACUTE AND CHRONIC RESPIRATORY FAILURE WITH HYPOXIA (2) Pneumonia Assessment/Plan: today c/o cough and SOB cont curret abx will F/U CXR and sputum culture, ID input appreciated Code(s): J18.9 - PNEUMONIA, UNSPECIFIED ORGANISM (3) COPD exacerbation Assessment/Plan: Severe COPD patient was referred for lung transplant, follow-up pulmonary recommendations, bronchodilators and IV hydration.F/U VBG for Hypercarbia added Spiriva Code(s): J44.1 - CHRONIC OBSTRUCTIVE PULMONARY DISEASE W (ACUTE) EXACERBATION (4) Diastolic CHF Assessment/Plan: Compensated continue Po Lasix 20 mg daily Code(s): I50.30 - UNSPECIFIED DIASTOLIC (CONGESTIVE) HEART FAILURE Qualifiers: Heart failure chronicity: unspecified Qualified Code(s): I50.30 - Unspecified diastolic (congestive) heart failure (5) Hypercholesterolemia Assessment/Plan: Continue statin Code(s): E78.0 - PURE HYPERCHOLESTEROLEMIA * DO NOT USE * (6) CAD (coronary artery disease) Assessment/Plan: Stable Code(s): I25.10 - ATHSCL HEART DISEASE OF [place] CORONARY ARTERY W/O ANG PCTRS (7) Rheumatoid arthritis Assessment/Plan: Cont home medications. Code(s): M06.9 - RHEUMATOID ARTHRITIS, UNSPECIFIED (8) Hypercarbia Assessment/Plan: Due to advanced COPD will decrease Lasix to 20 mg Code(s): R06.89 - OTHER ABNORMALITIES OF BREATHING
[2019-07-06] MEDS ORDERED: SODIUM POLYSTYRENE SULFONATE 15 GM/60 ML BOTTLE PO ONE (17:24)
[2019-07-06] MEDS ORDERED: ACETAMINOPHEN 325 MG TABLET (FP) PO PRN (20:21)
[2019-07-06] MEDS: ATORVASTATIN CA 20 MG TABLET (FP) PO SCH (22:17)
[2019-07-07] MEDS: dilTIAZem HCL 30 MG TABLET (FP) PO SCH ×3 (06:15→21:34)
[2019-07-07 07:27] LABS: BASO % 0.1 % (0-2.0); HEMATOCRIT 38.9 % (35.4-49); HEMOGLOBIN 12.7 GM/dL (11.7-16.9); LYMPH % 2.3 % (8-40); MCH 30.3 pg (25.7-33.7); MCHC 32.6 g/dl (32.0-35.9); MEAN CELL VOLUME 92.9 fl (80-96); MEAN PLT VOLUME 7.9 fl (7.5-11.1); NEUT % 94.6 % (42.8-82.8); PLATELET COUNT 317 K/MM3 (134-434); RBC 4.19 M/mm3 (4.00-5.60); RDW 16.4 % (11.9-15.9); WHITE BLOOD COUNT 14.8 K/mm3 (4.0-10.0)
[2019-07-07] MEDS: ALBUTEROL SO4 2.5/IPRATROPIUM 0.5 INH SOL 3 ML VIAL.NEB. NEB SCH ×4 (07:40→20:40)
[2019-07-07 07:47] LABS: CALCIUM 9.6 mg/dL (8.5-10.1); CREATININE 0.8 mg/dL (0.55-1.3); POTASSIUM 4.7 mmol/L (3.5-5.1)
[2019-07-07] MEDS ORDERED: PT OWN MED DRAWER 7, Y5N ONE ×2 (08:25→09:32)
--- NOTE | 2019-07-07 08:50 | PN ---
Progress Note, Physician - Current Medication List Current Medications: Active Medications Acetaminophen (Tylenol -) 650 mg PO Q4H PRN PRN Reason: FEVER Albuterol Sulfate (Ventolin Hfa Inhaler -) 2 puff IH Q4H PRN PRN Reason: SHORT OF BREATH/WHEEZING Albuterol/Ipratropium (Duoneb -) 1 amp NEB RQID [facility] Last Admin: 07/07/19 07:40 Dose: 1 amp Atorvastatin Calcium (Lipitor -) 20 mg PO HS [facility] Last Admin: 07/06/19 22:17 Dose: 20 mg Budesonide/Formoterol Fumarate (Symbicort 160/4.5mcg -) 2 puff IH BID [facility] Last Admin: 07/06/19 22:18 Dose: 2 puff Cefuroxime Axetil (Ceftin -) 500 mg PO BIDWM [facility] Last Admin: 07/06/19 17:57 Dose: 500 mg Clonazepam (Klonopin -) 0.5 mg PO BID [facility] Last Admin: 07/06/19 22:17 Dose: 0.5 mg Diltiazem HCl (Cardizem -) 30 mg PO TID [facility] Last Admin: 07/07/19 06:15 Dose: 30 mg Enoxaparin Sodium (Lovenox -) 40 mg SQ DAILY [facility] Last Admin: 07/06/19 09:05 Dose: 40 mg Folic Acid (Folic Acid -) 1 mg PO DAILY [facility] Last Admin: 07/06/19 09:06 Dose: 1 mg Furosemide (Lasix -) 20 mg PO DAILY [facility] Last Admin: 07/06/19 09:06 Dose: 20 mg Methotrexate (Mexate -) 15 mg PO Q7D@1000 [facility] Last Admin: 07/05/19 09:36 Dose: 15 mg Methylprednisolone Sodium Succinate (Solu-Medrol -) 40 mg IVPUSH BID [facility] Last Admin: 07/06/19 22:17 Dose: 40 mg Pantoprazole Sodium (Protonix -) 20 mg PO DAILY [facility] Last Admin: 07/06/19 09:06 Dose: 20 mg Ramipril (Altace -) 5 mg PO DAILY [facility] Last Admin: 07/06/19 09:05 Dose: 5 mg Tiotropium [place] (Spiriva Respimat) 2 puff IH DAILY [facility] Last Admin: 07/06/19 09:24 Dose: 2 puff - Objective Vital Signs: Vital Signs Temperature 97.5 F L 07/07/19 02:00 Pulse Rate 108 H 07/07/19 06:00 Respiratory Rate 18 07/07/19 06:00 Blood Pressure 128/72 07/07/19 06:00 O2 Sat by Pulse Oximetry (%) 97 07/07/19 08:05 General: Young male in mild respiratory distress. HEENT; mucous membranes moist, no anemia, no jaundice, PERRLA, no nystagmus Neck: No JVD, supple, no bruit, thyroid palpably normal, normal carotid pulsations. Chest: Nontender, bilateral wheezing. CVS: S1-S2 regular no murmur/gallop/rub Abdomen: Nondistended, soft, bowel sounds present. 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 , no gross motor sensory deficit Labs: CBC, BMP 07/07/19 06:03 07/07/19 06:03 INR, PTT INR 0.93 (0.83-1.09) 06/28/19 03:20 Problem List - Problems (1) Acute on chronic respiratory failure with hypoxemia Assessment/Plan: Taper IV methylprednisolone 40 mg BID , bronchodilator and pulmonary input Code(s): J96.21 - ACUTE AND CHRONIC RESPIRATORY FAILURE WITH HYPOXIA (2) Pneumonia Assessment/Plan: today c/o cough and SOB cont curret abx will F/U CXR and sputum culture, ID input appreciated Code(s): J18.9 - PNEUMONIA, UNSPECIFIED ORGANISM (3) COPD exacerbation Code(s): J44.1 - CHRONIC OBSTRUCTIVE PULMONARY DISEASE W (ACUTE) EXACERBATION (4) Diastolic CHF Assessment/Plan: Compensated continue Po Lasix 20 mg daily Code(s): I50.30 - UNSPECIFIED DIASTOLIC (CONGESTIVE) HEART FAILURE Qualifiers: Heart failure chronicity: unspecified Qualified Code(s): I50.30 - Unspecified diastolic (congestive) heart failure (5) Hypercholesterolemia Assessment/Plan: Continue statin Code(s): E78.0 - PURE HYPERCHOLESTEROLEMIA * DO NOT USE * (6) CAD (coronary artery disease) Assessment/Plan: Stable Code(s): I25.10 - ATHSCL HEART DISEASE OF [place] CORONARY ARTERY W/O ANG PCTRS (7) Rheumatoid arthritis Assessment/Plan: Cont home medications. Code(s): M06.9 - RHEUMATOID ARTHRITIS, UNSPECIFIED (8) Hypercarbia Assessment/Plan: Due to advanced COPD will decrease Lasix to 20 mg Code(s): R06.89 - OTHER ABNORMALITIES OF BREATHING (9) Elevated WBC count Assessment/Plan: most likly due to steroid trending normal Problems reviewed: Yes Code(s): D72.829 - ELEVATED WHITE BLOOD CELL COUNT, UNSPECIFIED (10) Hyperkalemia Assessment/Plan: corrected will F/u BMP Problems reviewed: Yes Code(s): E87.5 - HYPERKALEMIA
[2019-07-07] MEDS: CEFUROXIME AXETIL 500 MG TABLET PO SCH ×2 (09:34→17:30)
[2019-07-07] MEDS: RAMIPRIL 5 MG CAPSULE (FP) PO SCH (09:35)
[2019-07-07] MEDS: ENOXAPARIN NA (PORCINE) 40 MG/0.4 ML DISP.SYRIN SQ SCH (09:35)
[2019-07-07] MEDS: methylPREDNISolone NA SUCC 40 MG/1 ML VIAL IVPUSH SCH ×2 (09:35→21:34)
[2019-07-07] MEDS: PANTOPRAZOLE 20 MG TABLET (FP) PO SCH (09:35)
[2019-07-07] MEDS: FOLIC ACID 1 MG TABLET (FP) PO SCH (09:35)
[2019-07-07] MEDS: FUROSEMIDE 20 MG TABLET (FP) PO SCH (09:35)
[2019-07-07] MEDS: clonazePAM 0.5 MG TABLET PO SCH ×2 (09:36→21:34)
[2019-07-07] MEDS: BUDESONIDE/FORMETEROL FUMARATE 160/4.5 mcg INHALER IH SCH ×2 (09:37→21:39)
[2019-07-07] MEDS: TIOTROPIUM BROMIDE 2.5 MCG (SPIRIVA) RESPIMAT INHALER IH SCH (09:37)
[2019-07-07 11:59] LABS: ANISOCYTOSIS 0; MACROCYTOSIS 0; PLATELET ESTIMATE NORMAL
--- NOTE | 2019-07-07 14:08 | PN ---
Progress Note (short form) - Note Progress Note: Developed respiratory distress after PT. Required to be placed back on NIPPV support with improvement. No CP. Intake & Output 07/04/19 07/05/19 07/06/19 07/07/19 23:59 23:59 23:59 23:59 Intake Total 534 568 4423 360 Output Total 200 200 Balance 760 480 950 160 Weight 122 lb 122 lb Last Vital Signs Temp Pulse Resp BP Pulse Ox 98.2 F 109 H 18 105/64 97 07/07/19 10:00 07/07/19 10:00 07/07/19 10:00 07/07/19 10:00 07/07/19 11:20 Active Medications Acetaminophen (Tylenol -) 650 mg PO Q4H PRN PRN Reason: FEVER Albuterol Sulfate (Ventolin Hfa Inhaler -) 2 puff IH Q4H PRN PRN Reason: SHORT OF BREATH/WHEEZING Last Admin: 07/07/19 12:40 Dose: 2 puff Albuterol/Ipratropium (Duoneb -) 1 amp NEB RQID [facility] Last Admin: 07/07/19 11:35 Dose: 1 amp Atorvastatin Calcium (Lipitor -) 20 mg PO HS [facility] Last Admin: 07/06/19 22:17 Dose: 20 mg Budesonide/Formoterol Fumarate (Symbicort 160/4.5mcg -) 2 puff IH BID [facility] Last Admin: 07/07/19 09:37 Dose: 2 puff Cefuroxime Axetil (Ceftin -) 500 mg PO BIDWM [facility] Last Admin: 07/07/19 09:34 Dose: 500 mg Clonazepam (Klonopin -) 0.5 mg PO BID [facility] Last Admin: 07/07/19 09:36 Dose: 0.5 mg Diltiazem HCl (Cardizem -) 30 mg PO TID [facility] Last Admin: 07/07/19 13:52 Dose: 30 mg Enoxaparin Sodium (Lovenox -) 40 mg SQ DAILY [facility] Last Admin: 07/07/19 09:35 Dose: 40 mg Folic Acid (Folic Acid -) 1 mg PO DAILY [facility] Last Admin: 07/07/19 09:35 Dose: 1 mg Furosemide (Lasix -) 20 mg PO DAILY [facility] Last Admin: 07/07/19 09:35 Dose: 20 mg Methotrexate (Mexate -) 15 mg PO Q7D@1000 [facility] Last Admin: 07/05/19 09:36 Dose: 15 mg Methylprednisolone Sodium Succinate (Solu-Medrol -) 40 mg IVPUSH BID [facility] Last Admin: 07/07/19 09:35 Dose: 40 mg Pantoprazole Sodium (Protonix -) 20 mg PO DAILY [facility] Last Admin: 07/07/19 09:35 Dose: 20 mg Ramipril (Altace -) 5 mg PO DAILY [facility] Last Admin: 07/07/19 09:35 Dose: 5 mg Tiotropium [place] (Spiriva Respimat) 2 puff IH DAILY [facility] Last Admin: 07/07/19 09:37 Dose: 2 puff Constitutional: Yes: Thin, Respiratory distress Eyes: Yes: WNL HENT: Yes: WNL Neck: Yes: WNL Cardiovascular: Yes: Regular Rate and Rhythm, S1, S2 Respiratory: Yes: TachypneicScattered Bilateral Rhonchi, no Expiratory Wheezes noted Gastrointestinal: Yes: Normal Bowel Sounds, Soft Edema: Yes Labs: Laboratory Results - last 24 hr 07/07/19 07/07/19 06:03 06:03 WBC 14.8 H RBC 4.19 Hgb 12.7 Hct 38.9 MCV 92.9 MCH 30.3 MCHC 32.6 RDW 16.4 H Plt Count 317 MPV 7.9 Absolute Neuts (auto) 14.0 H Neutrophils % 94.6 H Neutrophils % (Manual) 94.0 H Band Neutrophils % 1.0 Lymphocytes % 2.3 L Lymphocytes % (Manual) 2.0 L Monocytes % 3.0 L Monocytes % (Manual) 1 L Eosinophils % 0.0 Eosinophils % (Manual) 0.0 Basophils % 0.1 Basophils % (Manual) 0.0 Myelocytes % (Man) 0 Promyelocytes % (Man) 0 D Blast Cells % (Manual) 0 Nucleated RBC % 0 Metamyelocytes 2 D Hypochromia 0 Platelet Estimate Normal Polychromasia 0 Poikilocytosis 0 Anisocytosis 0 Microcytosis 0 Macrocytosis 0 Sodium 138 Potassium 4.7 Chloride 95 L Carbon Dioxide 41 H Anion Gap 2 L BUN 30.0 H Creatinine 0.8 Est GFR (CKD-EPI)AfAm 110.96 Est GFR (CKD-EPI)NonAf 95.74 Random Glucose 116 H Calcium 9.6 Assessment/Plan Problem List - Problems (1) Acute respiratory failure Code(s): J96.00 - ACUTE RESPIRATORY FAILURE, UNSP W HYPOXIA OR HYPERCAPNIA (2) Pneumonia Code(s): J18.9 - PNEUMONIA, UNSPECIFIED ORGANISM (3) Acute on chronic respiratory failure with hypoxia and hypercapnia Code(s): J96.21 - ACUTE AND CHRONIC RESPIRATORY FAILURE WITH HYPOXIA; J96.22 - ACUTE AND CHRONIC RESPIRATORY FAILURE WITH HYPERCAPNIA (4) Anxiety and depression Code(s): F41.9 - ANXIETY DISORDER, UNSPECIFIED; F32.9 - MAJOR DEPRESSIVE DISORDER, SINGLE EPISODE, UNSPECIFIED (5) COPD (chronic obstructive pulmonary disease) Code(s): J44.9 - CHRONIC OBSTRUCTIVE PULMONARY DISEASE, UNSPECIFIED Qualifiers: COPD type: emphysema Emphysema type: unspecified Qualified Code(s): J43.9 - Emphysema, unspecified (6) Cough Code(s): R05 - COUGH (7) Edema Code(s): R60.9 - EDEMA, UNSPECIFIED Qualifiers: Edema type: unspecified Qualified Code(s): R60.9 - Edema, unspecified (8) Rheumatoid arthritis Code(s): M06.9 - RHEUMATOID ARTHRITIS, UNSPECIFIED 8 LLL nodule Assessment/Plan Acute on chronic hypoxemic/hypercapneic resp failure COPD on home 02 HIV/RA on Methotrexate Pneumonia Referred for lung transplant [facility] (patient did not submit paperwork) CABG HTN HLD CHF LLL NODULE NIPPV SUPPORT IV STEROIDS: LEAVE AT CURRENT DOSE BRONCHODILATORS F/U CHEST CT OUTPATIENT ABX PER ID SYMBICORT BID HIGH RISK FOR READMISSION CONSIDER INPATIENT PULMONARY REHAB PATIENT SEEMS TO HAVE PLATEAUED: DEPENDING ON NEXT FEW DAYS: IF HE DOES NOT IMPROVE CLINICALLY: WILL DISCUSS CHRONIC VENT SUPPORT VIA TRACH DR REEVES
[2019-07-07] MEDS: ATORVASTATIN CA 20 MG TABLET (FP) PO SCH (21:33)
[2019-07-08] MEDS: dilTIAZem HCL 30 MG TABLET (FP) PO SCH ×3 (05:55→22:22)
[2019-07-08 07:06] LABS: BASO % 0.1 % (0-2.0); HEMATOCRIT 34.3 % (35.4-49); HEMOGLOBIN 11.3 GM/dL (11.7-16.9); LYMPH % 2.1 % (8-40); MCH 30.3 pg (25.7-33.7); MCHC 32.9 g/dl (32.0-35.9); MEAN CELL VOLUME 92.2 fl (80-96); MEAN PLT VOLUME 7.8 fl (7.5-11.1); MONO % 2.5 % (3.8-10.2); NEUT % 95.3 % (42.8-82.8); PLATELET COUNT 250 K/MM3 (134-434); RBC 3.73 M/mm3 (4.00-5.60); RDW 16.6 % (11.9-15.9); WHITE BLOOD COUNT 11.3 K/mm3 (4.0-10.0)
[2019-07-08 07:08] LABS: BLOOD UREA NITROGEN 32.4 mg/dL (7-18); CREATININE 0.7 mg/dL (0.55-1.3); POTASSIUM 4.6 mmol/L (3.5-5.1)
[2019-07-08] MEDS: ALBUTEROL SO4 2.5/IPRATROPIUM 0.5 INH SOL 3 ML VIAL.NEB. NEB SCH ×4 (09:00→21:25)
[2019-07-08] MEDS ORDERED: PT OWN MED DRAWER 7, Y5N ONE (09:46)
--- NOTE | 2019-07-08 10:04 | PN ---
Progress Note, Physician Chief Complaint: Feels better since yesterday move out of the bed , afebrile - Current Medication List Current Medications: Active Medications Acetaminophen (Tylenol -) 650 mg PO Q4H PRN PRN Reason: FEVER Albuterol Sulfate (Ventolin Hfa Inhaler -) 2 puff IH Q4H PRN PRN Reason: SHORT OF BREATH/WHEEZING Last Admin: 07/07/19 12:40 Dose: 2 puff Albuterol/Ipratropium (Duoneb -) 1 amp NEB RQID [facility] Last Admin: 07/08/19 09:00 Dose: 1 amp Atorvastatin Calcium (Lipitor -) 20 mg PO HS [facility] Last Admin: 07/07/19 21:33 Dose: 20 mg Budesonide/Formoterol Fumarate (Symbicort 160/4.5mcg -) 2 puff IH BID [facility] Last Admin: 07/07/19 21:39 Dose: 2 puff Cefuroxime Axetil (Ceftin -) 500 mg PO BIDWM [facility] Last Admin: 07/07/19 17:30 Dose: 500 mg Clonazepam (Klonopin -) 0.5 mg PO BID [facility] Last Admin: 07/07/19 21:34 Dose: 0.5 mg Diltiazem HCl (Cardizem -) 30 mg PO TID [facility] Last Admin: 07/08/19 05:55 Dose: 30 mg Enoxaparin Sodium (Lovenox -) 40 mg SQ DAILY [facility] Last Admin: 07/07/19 09:35 Dose: 40 mg Folic Acid (Folic Acid -) 1 mg PO DAILY [facility] Last Admin: 07/07/19 09:35 Dose: 1 mg Furosemide (Lasix -) 20 mg PO DAILY [facility] Last Admin: 07/07/19 09:35 Dose: 20 mg Methotrexate (Mexate -) 15 mg PO Q7D@1000 [facility] Last Admin: 07/05/19 09:36 Dose: 15 mg Methylprednisolone Sodium Succinate (Solu-Medrol -) 40 mg IVPUSH BID [facility] Last Admin: 07/07/19 21:34 Dose: 40 mg Pantoprazole Sodium (Protonix -) 20 mg PO DAILY [facility] Last Admin: 07/07/19 09:35 Dose: 20 mg Ramipril (Altace -) 5 mg PO DAILY [facility] Last Admin: 07/07/19 09:35 Dose: 5 mg Tiotropium [place] (Spiriva Respimat) 2 puff IH DAILY [facility] Last Admin: 07/07/19 09:37 Dose: 2 puff - Objective Vital Signs: Vital Signs Temperature 96.8 F L 07/08/19 02:00 Pulse Rate 90 07/08/19 02:00 Respiratory Rate 20 07/08/19 02:00 Blood Pressure 105/64 07/08/19 02:00 O2 Sat by Pulse Oximetry (%) 97 07/08/19 00:27 General: Young male in mild respiratory distress. HEENT; mucous membranes moist, no anemia, no jaundice, PERRLA, no nystagmus Neck: No JVD, supple, no bruit, thyroid palpably normal, normal carotid pulsations. Chest: Nontender, bilateral wheezing. CVS: S1-S2 regular no murmur/gallop/rub Abdomen: Nondistended, soft, bowel sounds present. 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 , no gross motor sensory deficit Labs: CBC, BMP 07/08/19 06:00 07/08/19 06:00 INR, PTT INR 0.93 (0.83-1.09) 06/28/19 03:20 Problem List - Problems (1) Acute on chronic respiratory failure with hypoxemia Assessment/Plan: Taper IV methylprednisolone 40 mg BID , bronchodilator and pulmonary input Code(s): J96.21 - ACUTE AND CHRONIC RESPIRATORY FAILURE WITH HYPOXIA (2) Pneumonia Assessment/Plan: today c/o cough and SOB cont curret abx will F/U CXR and sputum culture, ID input appreciated Code(s): J18.9 - PNEUMONIA, UNSPECIFIED ORGANISM (3) COPD exacerbation Assessment/Plan: Severe COPD patient was referred for lung transplant, follow-up pulmonary recommendations, bronchodilators and IV hydration.F/U VBG for Hypercarbia added Spiriva Code(s): J44.1 - CHRONIC OBSTRUCTIVE PULMONARY DISEASE W (ACUTE) EXACERBATION (4) Diastolic CHF Assessment/Plan: Compensated continue Po Lasix 20 mg daily Code(s): I50.30 - UNSPECIFIED DIASTOLIC (CONGESTIVE) HEART FAILURE Qualifiers: Heart failure chronicity: unspecified Qualified Code(s): I50.30 - Unspecified diastolic (congestive) heart failure (5) Hypercholesterolemia Assessment/Plan: Continue statin Code(s): E78.0 - PURE HYPERCHOLESTEROLEMIA * DO NOT USE * (6) CAD (coronary artery disease) Assessment/Plan: Stable Code(s): I25.10 - ATHSCL HEART DISEASE OF [place] CORONARY ARTERY W/O ANG PCTRS (7) Rheumatoid arthritis Assessment/Plan: Cont home medications. Code(s): M06.9 - RHEUMATOID ARTHRITIS, UNSPECIFIED (8) Hypercarbia Assessment/Plan: Due to advanced COPD will decrease Lasix to 20 mg Code(s): R06.89 - OTHER ABNORMALITIES OF BREATHING (9) Elevated WBC count Assessment/Plan: most likly due to steroid trending normal Code(s): D72.829 - ELEVATED WHITE BLOOD CELL COUNT, UNSPECIFIED (10) Hyperkalemia Assessment/Plan: corrected will F/u BMP Code(s): E87.5 - HYPERKALEMIA
[2019-07-08] MEDS: TIOTROPIUM BROMIDE 2.5 MCG (SPIRIVA) RESPIMAT INHALER IH SCH (10:19)
[2019-07-08] MEDS: BUDESONIDE/FORMETEROL FUMARATE 160/4.5 mcg INHALER IH SCH ×2 (10:20→22:22)
[2019-07-08] MEDS: methylPREDNISolone NA SUCC 40 MG/1 ML VIAL IVPUSH SCH (11:20)
[2019-07-08] MEDS: CEFUROXIME AXETIL 500 MG TABLET PO SCH ×2 (11:20→20:22)
[2019-07-08] MEDS: FOLIC ACID 1 MG TABLET (FP) PO SCH (11:20)
[2019-07-08] MEDS: ENOXAPARIN NA (PORCINE) 40 MG/0.4 ML DISP.SYRIN SQ SCH (11:20)
--- NOTE | 2019-07-08 11:20 | PN ---
Progress Note (short form) - Note Progress Note: PULMONARY VSS/AFEBRILE ANICTERIC CHEST DISTAANT S1S2 BS+ NO EDEMA LABS/MEDS/NOTES IMAGES REVIEWED (1) Acute respiratory failure Code(s): J96.00 - ACUTE RESPIRATORY FAILURE, UNSP W HYPOXIA OR HYPERCAPNIA (2) Pneumonia Code(s): J18.9 - PNEUMONIA, UNSPECIFIED ORGANISM (3) Acute on chronic respiratory failure with hypoxia and hypercapnia Code(s): J96.21 - ACUTE AND CHRONIC RESPIRATORY FAILURE WITH HYPOXIA; J96.22 - ACUTE AND CHRONIC RESPIRATORY FAILURE WITH HYPERCAPNIA (4) Anxiety and depression Code(s): F41.9 - ANXIETY DISORDER, UNSPECIFIED; F32.9 - MAJOR DEPRESSIVE DISORDER, SINGLE EPISODE, UNSPECIFIED (5) COPD (chronic obstructive pulmonary disease) Code(s): J44.9 - CHRONIC OBSTRUCTIVE PULMONARY DISEASE, UNSPECIFIED Qualifiers: COPD type: emphysema Emphysema type: unspecified Qualified Code(s): J43.9 - Emphysema, unspecified (6) Cough Code(s): R05 - COUGH (7) Edema Code(s): R60.9 - EDEMA, UNSPECIFIED Qualifiers: Edema type: unspecified Qualified Code(s): R60.9 - Edema, unspecified (8) Rheumatoid arthritis Code(s): M06.9 - RHEUMATOID ARTHRITIS, UNSPECIFIED Assessment/Plan Acute on chronic hypoxemic/hypercapneic resp failure CTA no obvious PE/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 base COPD on home 02 HIV/RA on Methotrexate Referred for lung transplant [facility] (patient did not submit paperwork) CABG/HTN/HLD/CHF NIPPV HS/PRN STEROIDS/BRONCHODILATORS Leo DAMON MD Problem List - Problems (1) Acute respiratory failure Code(s): J96.00 - ACUTE RESPIRATORY FAILURE, UNSP W HYPOXIA OR HYPERCAPNIA (2) Pneumonia Code(s): J18.9 - PNEUMONIA, UNSPECIFIED ORGANISM (3) Acute on chronic respiratory failure with hypoxia and hypercapnia Code(s): J96.21 - ACUTE AND CHRONIC RESPIRATORY FAILURE WITH HYPOXIA; J96.22 - ACUTE AND CHRONIC RESPIRATORY FAILURE WITH HYPERCAPNIA (4) Anxiety and depression Code(s): F41.9 - ANXIETY DISORDER, UNSPECIFIED; F32.9 - MAJOR DEPRESSIVE DISORDER, SINGLE EPISODE, UNSPECIFIED (5) COPD (chronic obstructive pulmonary disease) Code(s): J44.9 - CHRONIC OBSTRUCTIVE PULMONARY DISEASE, UNSPECIFIED Qualifiers: COPD type: emphysema Emphysema type: unspecified Qualified Code(s): J43.9 - Emphysema, unspecified (6) Cough Code(s): R05 - COUGH (7) Edema Code(s): R60.9 - EDEMA, UNSPECIFIED Qualifiers: Edema type: unspecified Qualified Code(s): R60.9 - Edema, unspecified (8) Rheumatoid arthritis Code(s): M06.9 - RHEUMATOID ARTHRITIS, UNSPECIFIED
[2019-07-08] MEDS: clonazePAM 0.5 MG TABLET PO SCH ×2 (11:21→22:22)
[2019-07-08] MEDS: FUROSEMIDE 20 MG TABLET (FP) PO SCH (11:21)
[2019-07-08] MEDS: PANTOPRAZOLE 20 MG TABLET (FP) PO SCH (11:21)
[2019-07-08] MEDS: RAMIPRIL 5 MG CAPSULE (FP) PO SCH (11:21)
[2019-07-08 11:52] LABS: ANISOCYTOSIS 0; MACROCYTOSIS 0; PLATELET ESTIMATE NORMAL
[2019-07-08] MEDS: ATORVASTATIN CA 20 MG TABLET (FP) PO SCH (22:22)
[2019-07-09] MEDS: dilTIAZem HCL 30 MG TABLET (FP) PO SCH ×3 (06:19→23:07)
[2019-07-09] MEDS ORDERED: PT OWN MED DRAWER 7, Y5N ONE ×3 (06:23→17:12)
[2019-07-09] MEDS: ALBUTEROL SO4 2.5/IPRATROPIUM 0.5 INH SOL 3 ML VIAL.NEB. NEB SCH ×4 (08:08→21:25)
[2019-07-09] MEDS: CEFUROXIME AXETIL 500 MG TABLET PO SCH ×2 (09:20→17:17)
[2019-07-09] MEDS: FUROSEMIDE 20 MG TABLET (FP) PO SCH (10:57)
[2019-07-09] MEDS: RAMIPRIL 5 MG CAPSULE (FP) PO SCH (10:57)
[2019-07-09] MEDS: predniSONE 10 MG TABLET (UD) PO SCH (10:57)
[2019-07-09] MEDS: FOLIC ACID 1 MG TABLET (FP) PO SCH (10:57)
[2019-07-09] MEDS: clonazePAM 0.5 MG TABLET PO SCH ×2 (10:57→22:18)
[2019-07-09] MEDS: PANTOPRAZOLE 20 MG TABLET (FP) PO SCH (10:57)
[2019-07-09] MEDS: ENOXAPARIN NA (PORCINE) 40 MG/0.4 ML DISP.SYRIN SQ SCH (10:57)
[2019-07-09] MEDS: BUDESONIDE/FORMETEROL FUMARATE 160/4.5 mcg INHALER IH SCH ×2 (10:58→22:18)
[2019-07-09] MEDS: TIOTROPIUM BROMIDE 2.5 MCG (SPIRIVA) RESPIMAT INHALER IH SCH (10:58)
--- NOTE | 2019-07-09 11:39 | PN ---
Progress Note (short form) - Note Progress Note: PULMONARY VSS/AFEBRILE ANICTERIC CHEST DISTAANT S1S2 BS+ NO EDEMA LABS/MEDS/NOTES IMAGES REVIEWED (1) Acute respiratory failure Code(s): J96.00 - ACUTE RESPIRATORY FAILURE, UNSP W HYPOXIA OR HYPERCAPNIA (2) Pneumonia Code(s): J18.9 - PNEUMONIA, UNSPECIFIED ORGANISM (3) Acute on chronic respiratory failure with hypoxia and hypercapnia Code(s): J96.21 - ACUTE AND CHRONIC RESPIRATORY FAILURE WITH HYPOXIA; J96.22 - ACUTE AND CHRONIC RESPIRATORY FAILURE WITH HYPERCAPNIA (4) Anxiety and depression Code(s): F41.9 - ANXIETY DISORDER, UNSPECIFIED; F32.9 - MAJOR DEPRESSIVE DISORDER, SINGLE EPISODE, UNSPECIFIED (5) COPD (chronic obstructive pulmonary disease) Code(s): J44.9 - CHRONIC OBSTRUCTIVE PULMONARY DISEASE, UNSPECIFIED Qualifiers: COPD type: emphysema Emphysema type: unspecified Qualified Code(s): J43.9 - Emphysema, unspecified (6) Cough Code(s): R05 - COUGH (7) Edema Code(s): R60.9 - EDEMA, UNSPECIFIED Qualifiers: Edema type: unspecified Qualified Code(s): R60.9 - Edema, unspecified (8) Rheumatoid arthritis Code(s): M06.9 - RHEUMATOID ARTHRITIS, UNSPECIFIED Assessment/Plan Acute on chronic hypoxemic/hypercapneic resp failure CTA no obvious PE/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 base COPD on home 02 HIV/RA on Methotrexate Referred for lung transplant [facility] (patient did not submit paperwork) CABG/HTN/HLD/CHF NIPPV HS/PRN STEROIDS/BRONCHODILATORS D/C PLANNING R [facility] Problem List - Problems (1) Acute respiratory failure Code(s): J96.00 - ACUTE RESPIRATORY FAILURE, UNSP W HYPOXIA OR HYPERCAPNIA (2) Pneumonia Code(s): J18.9 - PNEUMONIA, UNSPECIFIED ORGANISM (3) Acute on chronic respiratory failure with hypoxia and hypercapnia Code(s): J96.21 - ACUTE AND CHRONIC RESPIRATORY FAILURE WITH HYPOXIA; J96.22 - ACUTE AND CHRONIC RESPIRATORY FAILURE WITH HYPERCAPNIA (4) Anxiety and depression Code(s): F41.9 - ANXIETY DISORDER, UNSPECIFIED; F32.9 - MAJOR DEPRESSIVE DISORDER, SINGLE EPISODE, UNSPECIFIED (5) COPD (chronic obstructive pulmonary disease) Code(s): J44.9 - CHRONIC OBSTRUCTIVE PULMONARY DISEASE, UNSPECIFIED Qualifiers: COPD type: emphysema Emphysema type: unspecified Qualified Code(s): J43.9 - Emphysema, unspecified (6) Cough Code(s): R05 - COUGH (7) Edema Code(s): R60.9 - EDEMA, UNSPECIFIED Qualifiers: Edema type: unspecified Qualified Code(s): R60.9 - Edema, unspecified (8) Rheumatoid arthritis Code(s): M06.9 - RHEUMATOID ARTHRITIS, UNSPECIFIED
--- NOTE | 2019-07-09 14:38 | PN ---
Progress Note, Physician Chief Complaint: Feels better since yesterday move out of the bed , afebrile - Current Medication List Current Medications: Active Medications Acetaminophen (Tylenol -) 650 mg PO Q4H PRN PRN Reason: FEVER Albuterol Sulfate (Ventolin Hfa Inhaler -) 2 puff IH Q4H PRN PRN Reason: SHORT OF BREATH/WHEEZING Last Admin: 07/07/19 12:40 Dose: 2 puff Albuterol/Ipratropium (Duoneb -) 1 amp NEB RQID [facility] Last Admin: 07/09/19 11:03 Dose: 1 amp Atorvastatin Calcium (Lipitor -) 20 mg PO HS [facility] Last Admin: 07/08/19 22:22 Dose: 20 mg Budesonide/Formoterol Fumarate (Symbicort 160/4.5mcg -) 2 puff IH BID [facility] Last Admin: 07/09/19 10:58 Dose: 2 puff Cefuroxime Axetil (Ceftin -) 500 mg PO BIDWM [facility] Last Admin: 07/09/19 09:20 Dose: 500 mg Clonazepam (Klonopin -) 0.5 mg PO BID [facility] Last Admin: 07/09/19 10:57 Dose: 0.5 mg Diltiazem HCl (Cardizem -) 30 mg PO TID [facility] Last Admin: 07/09/19 06:19 Dose: 30 mg Enoxaparin Sodium (Lovenox -) 40 mg SQ DAILY [facility] Last Admin: 07/09/19 10:57 Dose: 40 mg Folic Acid (Folic Acid -) 1 mg PO DAILY [facility] Last Admin: 07/09/19 10:57 Dose: 1 mg Furosemide (Lasix -) 20 mg PO DAILY [facility] Last Admin: 07/09/19 10:57 Dose: 20 mg Methotrexate (Mexate -) 15 mg PO Q7D@1000 [facility] Last Admin: 07/05/19 09:36 Dose: 15 mg Pantoprazole Sodium (Protonix -) 20 mg PO DAILY [facility] Last Admin: 07/09/19 10:57 Dose: 20 mg Prednisone (Deltasone -) 30 mg PO DAILY [facility] Last Admin: 07/09/19 10:57 Dose: 30 mg Ramipril (Altace -) 5 mg PO DAILY [facility] Last Admin: 07/09/19 10:57 Dose: 5 mg Tiotropium [place] (Spiriva Respimat) 2 puff IH DAILY [facility] Last Admin: 07/09/19 10:58 Dose: 2 puff - Objective Vital Signs: Vital Signs Temperature 97.8 F 07/09/19 10:00 Pulse Rate 108 H 07/09/19 10:00 Respiratory Rate 07/09/19 10:00 Blood Pressure 98/72 07/09/19 10:00 O2 Sat by Pulse Oximetry (%) 98 07/09/19 10:00 General: Young male in mild respiratory distress. HEENT; mucous membranes moist, no anemia, no jaundice, PERRLA, no nystagmus Neck: No JVD, supple, no bruit, thyroid palpably normal, normal carotid pulsations. Chest: Nontender, bilateral wheezing. CVS: S1-S2 regular no murmur/gallop/rub Abdomen: Nondistended, soft, bowel sounds present. 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 , no gross motor sensory deficit Labs: CBC, BMP 07/08/19 06:00 07/08/19 06:00 INR, PTT INR 0.93 (0.83-1.09) 06/28/19 03:20 Problem List - Problems (1) Acute on chronic respiratory failure with hypoxemia Assessment/Plan: On PO Prednisone 40 day 2 , bronchodilator and pulmonary input Code(s): J96.21 - ACUTE AND CHRONIC RESPIRATORY FAILURE WITH HYPOXIA (2) Pneumonia Assessment/Plan: Completed abx Code(s): J18.9 - PNEUMONIA, UNSPECIFIED ORGANISM (3) COPD exacerbation Assessment/Plan: cont [place] Spiriva symbicort and Po prednisone Code(s): J44.1 - CHRONIC OBSTRUCTIVE PULMONARY DISEASE W (ACUTE) EXACERBATION (4) Diastolic CHF Assessment/Plan: Compensated continue Po Lasix 20 mg daily Code(s): I50.30 - UNSPECIFIED DIASTOLIC (CONGESTIVE) HEART FAILURE Qualifiers: Heart failure chronicity: unspecified Qualified Code(s): I50.30 - Unspecified diastolic (congestive) heart failure (5) Hypercholesterolemia Assessment/Plan: Continue statin Code(s): E78.0 - PURE HYPERCHOLESTEROLEMIA * DO NOT USE * (6) CAD (coronary artery disease) Assessment/Plan: Stable Code(s): I25.10 - ATHSCL HEART DISEASE OF [place] CORONARY ARTERY W/O ANG PCTRS (7) Rheumatoid arthritis Assessment/Plan: Cont home medications. Code(s): M06.9 - RHEUMATOID ARTHRITIS, UNSPECIFIED (8) Hypercarbia Assessment/Plan: Stable Code(s): R06.89 - OTHER ABNORMALITIES OF BREATHING (9) Hyperkalemia Assessment/Plan: corrected will F/u BMP Code(s): E87.5 - HYPERKALEMIA
--- NOTE | 2019-07-09 20:02 | CON.CARD ---
Consult Consult Specialty:: cardiology Reason for Consultation:: arrhythmia - History of Present Illness Chief Complaint: Pt A&Ox3; no chest pain or palpitations; no dizziness; +SOB History of Present Illness: 64yo man with a PMH of CAD s/p CABG, COPD on home O2 (on a list for lung transplant), HTN, HLD, HIV, CHF, RA on methotrexate, and anxiety presents to the emergency department from [facility] with acute onset of SOB and respiratory distress. Hypoxic down to 88% Full code. But there was discussion on goals of care and pt does not elect for CPR or aggressive measures. Pt states he developed "pneumonia" after recent discharge from [facility] to ID. 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 Cardio/Vascular: Yes: CAD, CHF, HTN, Hyperlipdemia Pulmonary: Yes: COPD, O2 Dependent, Other (bullous emphysema) Gastrointestinal: No: Ascites Infectious Disease: Yes: HIV Psych: Yes: Addictions (heroin), Anxiety Musculoskeletal: Yes: Chronic low back pain Rheumatology: Yes: Rheumatoid Arthritis - Past Surgical History Past Surgical History: Yes: CABG, Stent - Alcohol/Substance Use Hx Alcohol Use: No History of Substance Use: reports: None - Smoking History Smoking history: Former smoker Have you smoked in the past 12 months: No Aproximately how many cigarettes per day: 0 If you are a former smoker, when did you quit?: 3YRS Home Medications - Allergies Allergies/Adverse Reactions: Allergies Allergy/AdvReac Type Severity Reaction Status Date / Time Penicillins Allergy Severe Rash Verified 06/28/19 00:21 seafood Allergy Severe Rash Uncoded 06/28/19 00:21 - Home Medications Home Medications: Ambulatory Orders Albuterol Sulfate Inhaler - [Ventolin Hfa Inhaler -] 1 - 2 inh PO Q4H PRN Budesonide/Formeterol Fumarate [SYMBICORT 160/4.5mcg -] 1 inh PO BID 05/25/18 Clopidogrel Bisulfate [Plavix] 75 mg PO DAILY 05/25/18 Folic Acid 1 mg PO DAILY 05/25/18 Furosemide [Lasix] 40 mg PO DAILY 05/25/18 Hydroxychloroquine Sulfate [Plaquenil] 200 mg PO BID 05/25/18 Methotrexate [Mexate -] 15 mg PO Q7D 05/25/18 Ramipril [Altace] 5 mg PO DAILY 05/25/18 Simvastatin [Zocor -] 40 mg PO HS 05/25/18 Clonazepam 0.5 mg PO BID 06/04/19 Atorvastatin Calcium 20 mg PO HS 06/28/19 Fluticasone/Umeclidin/Vilanter [Trelegy Ellipta 100-62.5-25] 1 each IH ASDIR 07/17 Ramipril 5 mg PO DAILY 06/28/19 Family Medical History Family History: Denies Review of Systems - Review of Systems Constitutional: reports: Lethargy, Loss of Appetite, Weakness Eyes: reports: No Symptoms HENT: reports: No Symptoms Neck: reports: No Symptoms Cardiovascular: reports: Shortness of Breath Respiratory: reports: Exercise Intolerance, SOB, Wheezing Gastrointestinal: reports: No Symptoms Genitourinary: reports: No Symptoms Breasts: reports: No Symptoms Reported Integumentary: reports: No Symptoms Neurological: reports: No Symptoms Endocrine: reports: No Symptoms Hematology/Lymphatic: reports: No Symptoms Psychiatric: reports: Anxiety, Depression - Risk Factors Known Risk Factors: Yes: Age, Gender, Hypercholesterolemia, Hypertension, Physical Inactivity, Smoking (former), Other (diastolic CHF: depression; COPD) Vital Signs: Vital Signs Temperature 97.2 F L 07/09/19 18:00 Pulse Rate 78 07/09/19 18:00 Respiratory Rate 20 07/09/19 18:00 Blood Pressure 126/74 07/09/19 18:00 O2 Sat by Pulse Oximetry (%) 97 07/09/19 16:31 Constitutional: Yes: Anxious, Thin Eyes: Yes: WNL HENT: Yes: WNL Neck: Yes: WNL Respiratory: Yes: Diminished, Poor Air Entry, SOB Gastrointestinal: Yes: WNL Renal/: Yes: WNL Cardiovascular: Yes: Tachycardia (episode of PSVT) JVD: No Carotid Bruit: No PMI: Non-Displaced Heart Sounds: Yes: S1, Split S2, S4 Murmur: Yes: Systolic Murmur, Grade 2 Musculoskeletal: Yes: Muscle Weakness Extremities: Yes: Cool Edema: No Peripheral Pulses WNL: Yes Integumentary: Yes: WNL Neurological: Yes: Alert, Oriented, Weakness Psychiatric: Yes: Alert, Oriented, Other (depression) - Other Data Labs, Other Data: CBC, BMP 07/08/19 06:00 07/08/19 06:00 INR, PTT INR 0.93 (0.83-1.09) 06/28/19 03:20 Abnormal Lab Results 07/10/19 07/10/19 12:12 12:12 WBC 20.9 H RDW 16.6 H Absolute Neuts (auto) 19.8 H Neutrophils % 95.0 H Neutrophils % (Manual) 94.0 H Lymphocytes % 1.8 L Lymphocytes % (Manual) 2.0 L D Monocytes % 3.1 L Monocytes % (Manual) 1 L Chloride 97 L Carbon Dioxide 37 H Anion Gap 3 L BUN 31.1 H Imaging - Results Chest X-ray: Image Reviewed (hyperinflation consistent with COPD) EKG: Image Reviewed (sinus tachycardia; RBBB (unchanged)) Problem List - Problems (1) Acute respiratory failure Code(s): J96.00 - ACUTE RESPIRATORY FAILURE, UNSP W HYPOXIA OR HYPERCAPNIA (2) Elevated WBC count Code(s): D72.829 - ELEVATED WHITE BLOOD CELL COUNT, UNSPECIFIED (3) Hypercarbia Code(s): R06.89 - OTHER ABNORMALITIES OF BREATHING (4) Hyperkalemia Code(s): E87.5 - HYPERKALEMIA (5) Pneumonia Code(s): J18.9 - PNEUMONIA, UNSPECIFIED ORGANISM (6) Abnormal LFTs Assessment/Plan: mildly elevated ALT. F/u serially (especially while on statin). Code(s): R79.89 - OTHER SPECIFIED ABNORMAL FINDINGS OF BLOOD CHEMISTRY (7) Acute on chronic diastolic (congestive) heart failure Assessment/Plan: F/u BNP Hold lisinopril (no acute infiltrate on cxr; rising BUN/ development of PSVT) f/U echo for LVEF, diastolic compliance, vave status. . Code(s): I50.33 - ACUTE ON CHRONIC DIASTOLIC (CONGESTIVE) HEART FAILURE (8) Acute on chronic respiratory failure with hypoxia and hypercapnia Code(s): J96.21 - ACUTE AND CHRONIC RESPIRATORY FAILURE WITH HYPOXIA; J96.22 - ACUTE AND CHRONIC RESPIRATORY FAILURE WITH HYPERCAPNIA (9) Anxiety and depression Code(s): F41.9 - ANXIETY DISORDER, UNSPECIFIED; F32.9 - MAJOR DEPRESSIVE DISORDER, SINGLE EPISODE, UNSPECIFIED (10) COPD exacerbation Code(s): J44.1 - CHRONIC OBSTRUCTIVE PULMONARY DISEASE W (ACUTE) EXACERBATION (11) HTN (hypertension) Code(s): I10 - ESSENTIAL (PRIMARY) HYPERTENSION Qualifiers: Hypertension type: essential hypertension Qualified Code(s): I10 - Essential (primary) hypertension (12) History of coronary artery bypass graft Code(s): Z95.1 - PRESENCE OF AORTOCORONARY BYPASS GRAFT (13) History of percutaneous coronary intervention Code(s): Z98.89 - OTHER SPECIFIED POSTPROCEDURAL STATES * DO NOT USE * (14) Hypercholesterolemia Assessment/Plan: on atorvastatin (increase to 40 mg daily due to elevated LDL); f/u LFTs serally (milely elevated ALT). Code(s): E78.0 - PURE HYPERCHOLESTEROLEMIA * DO NOT USE * (15) PSVT (paroxysmal supraventricular tachycardia) Assessment/Plan: Started diltiazem (increase to 30 mg q6h, and increase as necessasry and as BP tolerates). F/u electrolytes. Serial EKG. Avoid excessive dehydration (furosemide held). Code(s): I47.1 - SUPRAVENTRICULAR TACHYCARDIA (16) Rheumatoid arthritis Code(s): M06.9 - RHEUMATOID ARTHRITIS, UNSPECIFIED (17) Sinus tachycardia Code(s): R00.0 - TACHYCARDIA, UNSPECIFIED
[2019-07-09 22:05] LABS: MAGNESIUM 2.7 mg/dL (1.8-2.4); PHOSPHOROUS 4.2 mg/dL (2.5-4.9)
[2019-07-09] MEDS: ATORVASTATIN CA 20 MG TABLET (FP) PO SCH (22:18)
[2019-07-10] MEDS: dilTIAZem HCL 30 MG TABLET (FP) PO SCH ×4 (06:26→23:53)
[2019-07-10] MEDS: ALBUTEROL SO4 2.5/IPRATROPIUM 0.5 INH SOL 3 ML VIAL.NEB. NEB SCH ×4 (08:00→20:55)
[2019-07-10] MEDS: RAMIPRIL 5 MG CAPSULE (FP) PO SCH (09:10)
[2019-07-10] MEDS: PANTOPRAZOLE 20 MG TABLET (FP) PO SCH (09:10)
[2019-07-10] MEDS: CEFUROXIME AXETIL 500 MG TABLET PO SCH ×2 (09:10→18:51)
[2019-07-10] MEDS: clonazePAM 0.5 MG TABLET PO SCH ×2 (09:10→22:41)
[2019-07-10] MEDS: FOLIC ACID 1 MG TABLET (FP) PO SCH (09:10)
[2019-07-10] MEDS: predniSONE 10 MG TABLET (UD) PO SCH (09:10)
[2019-07-10] MEDS: ENOXAPARIN NA (PORCINE) 40 MG/0.4 ML DISP.SYRIN SQ SCH (09:11)
[2019-07-10] MEDS: BUDESONIDE/FORMETEROL FUMARATE 160/4.5 mcg INHALER IH SCH ×2 (09:11→22:41)
[2019-07-10] MEDS: TIOTROPIUM BROMIDE 2.5 MCG (SPIRIVA) RESPIMAT INHALER IH SCH (09:12)
--- NOTE | 2019-07-10 09:40 | EKG ---
Test Reason : Blood Pressure : / mmHG Vent. Rate : 103 BPM Atrial Rate : 103 BPM P-R Int : 130 ms QRS Dur : 124 ms QT Int : 330 ms P-R-T Axes : 082 106 055 degrees QTc Int : 432 ms SINUS TACHYCARDIA RIGHT BUNDLE BRANCH BLOCK ABNORMAL ECG WHEN COMPARED WITH ECG OF 28-JUN-2019 00:15, NO SIGNIFICANT CHANGE WAS FOUND Confirmed by ELOISA TIRADO MD ([id number]) on 07/10/2019 9:40:30 AM Referred By: Confirmed By:ELOISA TIRADO MD
--- NOTE | 2019-07-10 12:23 | PN ---
Progress Note (short form) - Note Progress Note: PULMONARY States breathing slightly better. Less cough and wheezing. Vital Signs Period Temp Pulse Resp BP Sys/Ellison Pulse Ox Last 24 Hr 97.2 F-98.7 F 78-124 20-20 94-126/58-74 95-97 Gen: less tachypneic with speaking Heart: RRR Lung: distant breath sounds Abd: soft, nontender Ext: no edema CBC, BMP 07/08/19 06:00 07/08/19 06:00 Active Medications Acetaminophen (Tylenol -) 650 mg PO Q4H PRN PRN Reason: FEVER Albuterol Sulfate (Ventolin Hfa Inhaler -) 2 puff IH Q4H PRN PRN Reason: SHORT OF BREATH/WHEEZING Last Admin: 07/07/19 12:40 Dose: 2 puff Albuterol/Ipratropium (Duoneb -) 1 amp NEB RQID [facility] Last Admin: 07/10/19 11:25 Dose: 1 amp Atorvastatin Calcium (Lipitor -) 20 mg PO HS [facility] Last Admin: 07/09/19 22:18 Dose: 20 mg Budesonide/Formoterol Fumarate (Symbicort 160/4.5mcg -) 2 puff IH BID [facility] Last Admin: 07/10/19 09:11 Dose: 2 puff Cefuroxime Axetil (Ceftin -) 500 mg PO BIDWM [facility] Last Admin: 07/10/19 09:10 Dose: 500 mg Clonazepam (Klonopin -) 0.5 mg PO BID [facility] Last Admin: 07/10/19 09:10 Dose: 0.5 mg Diltiazem HCl (Cardizem -) 30 mg PO Q6HPO [facility] Last Admin: 07/10/19 11:38 Dose: 30 mg Enoxaparin Sodium (Lovenox -) 40 mg SQ DAILY [facility] Last Admin: 07/10/19 09:11 Dose: 40 mg Folic Acid (Folic Acid -) 1 mg PO DAILY [facility] Last Admin: 07/10/19 09:10 Dose: 1 mg Methotrexate (Mexate -) 15 mg PO Q7D@1000 [facility] Last Admin: 07/05/19 09:36 Dose: 15 mg Pantoprazole Sodium (Protonix -) 20 mg PO DAILY [facility] Last Admin: 07/10/19 09:10 Dose: 20 mg Prednisone (Deltasone -) 30 mg PO DAILY [facility] Last Admin: 07/10/19 09:10 Dose: 30 mg Ramipril (Altace -) 5 mg PO DAILY [facility] Last Admin: 07/10/19 09:10 Dose: 5 mg Tiotropium [place] (Spiriva Respimat) 2 puff IH DAILY [facility] Last Admin: 07/10/19 09:12 Dose: 2 puff A/P Acute on Chronic Hypoxic and Hypercapneic Respiratory Failure improving Acute COPD Exacerbation Pneumonia Rheumatoid Arthritis CAD s/p CABG Lung Nodule LV Diastolic Dysfunction Pulmonary HTN HTN Hyperlipidemia - slow prednisone taper - inhaled bronchodilators - complete antibiotics - O2 to keep SpO2 >90% - BiPAP at night and as needed to assist in work of breathing - DVT prophylaxis
[2019-07-10 13:00] LABS: BASO % 0.1 % (0-2.0); HEMATOCRIT 38.8 % (35.4-49); HEMOGLOBIN 12.9 GM/dL (11.7-16.9); LYMPH % 1.8 % (8-40); MCH 30.7 pg (25.7-33.7); MCHC 33.2 g/dl (32.0-35.9); MEAN CELL VOLUME 92.7 fl (80-96); MEAN PLT VOLUME 8.4 fl (7.5-11.1); MONO % 3.1 % (3.8-10.2); PLATELET COUNT 279 K/MM3 (134-434); RBC 4.19 M/mm3 (4.00-5.60); RDW 16.6 % (11.9-15.9); WHITE BLOOD COUNT 20.9 K/mm3 (4.0-10.0)
[2019-07-10 13:13] LABS: BLOOD UREA NITROGEN 31.1 mg/dL (7-18); CALCIUM 8.7 mg/dL (8.5-10.1); CREATININE 0.8 mg/dL (0.55-1.3); POTASSIUM 4.9 mmol/L (3.5-5.1)
[2019-07-10 14:29] LABS: ANISOCYTOSIS 1+; PLATELET ESTIMATE NORMAL
[2019-07-10] MEDS ORDERED: PT OWN MED DRAWER 7, Y5N ONE (18:50)
[2019-07-10] MEDS: ATORVASTATIN CA 20 MG TABLET (FP) PO SCH (22:41)
[2019-07-11] MEDS: dilTIAZem HCL 30 MG TABLET (FP) PO SCH ×2 (06:29→14:40)
--- NOTE | 2019-07-11 08:32 | PN ---
Progress Note, Physician Chief Complaint: Still c/o SOB - Current Medication List Current Medications: Active Medications Acetaminophen (Tylenol -) 650 mg PO Q4H PRN PRN Reason: FEVER Albuterol Sulfate (Ventolin Hfa Inhaler -) 2 puff IH Q4H PRN PRN Reason: SHORT OF BREATH/WHEEZING Last Admin: 07/07/19 12:40 Dose: 2 puff Albuterol/Ipratropium (Duoneb -) 1 amp NEB RQID [facility] Last Admin: 07/10/19 20:55 Dose: 1 amp Atorvastatin Calcium (Lipitor -) 20 mg PO HS [facility] Last Admin: 07/10/19 22:41 Dose: 20 mg Budesonide/Formoterol Fumarate (Symbicort 160/4.5mcg -) 2 puff IH BID [facility] Last Admin: 07/10/19 22:41 Dose: 2 puff Cefuroxime Axetil (Ceftin -) 500 mg PO BIDWM [facility] Last Admin: 07/10/19 18:51 Dose: 500 mg Clonazepam (Klonopin -) 0.5 mg PO BID [facility] Last Admin: 07/10/19 22:41 Dose: 0.5 mg Diltiazem HCl (Cardizem -) 30 mg PO Q6HPO [facility] Last Admin: 07/11/19 06:29 Dose: 30 mg Enoxaparin Sodium (Lovenox -) 40 mg SQ DAILY [facility] Last Admin: 07/10/19 09:11 Dose: 40 mg Folic Acid (Folic Acid -) 1 mg PO DAILY [facility] Last Admin: 07/10/19 09:10 Dose: 1 mg Methotrexate (Mexate -) 15 mg PO Q7D@1000 [facility] Last Admin: 07/05/19 09:36 Dose: 15 mg Pantoprazole Sodium (Protonix -) 20 mg PO DAILY [facility] Last Admin: 07/10/19 09:10 Dose: 20 mg Prednisone (Deltasone -) 30 mg PO DAILY [facility] Last Admin: 07/10/19 09:10 Dose: 30 mg Ramipril (Altace -) 5 mg PO DAILY [facility] Last Admin: 07/10/19 09:10 Dose: 5 mg Tiotropium [place] (Spiriva Respimat) 2 puff IH DAILY [facility] Last Admin: 07/10/19 09:12 Dose: 2 puff - Objective Vital Signs: Vital Signs Temperature 97.5 F L 01/14/20 06:25 Pulse Rate 107 H 07/11/19 06:25 Respiratory Rate 20 07/11/19 06:25 Blood Pressure 100/62 07/11/19 06:25 O2 Sat by Pulse Oximetry (%) 95 07/10/19 23:00 General: Young male in mild respiratory distress. HEENT; mucous membranes moist, no anemia, no jaundice, PERRLA, no nystagmus Neck: No JVD, supple, no bruit, thyroid palpably normal, normal carotid pulsations. Chest: Nontender, bilateral wheezing. CVS: S1-S2 regular no murmur/gallop/rub Abdomen: Nondistended, soft, bowel sounds present. 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 , no gross motor sensory deficit Labs: CBC, BMP 07/10/19 12:12 07/10/19 12:12 INR, PTT INR 0.93 (0.83-1.09) 06/28/19 03:20 Problem List - Problems (1) Acute on chronic respiratory failure with hypoxemia Code(s): J96.21 - ACUTE AND CHRONIC RESPIRATORY FAILURE WITH HYPOXIA (2) Pneumonia Code(s): J18.9 - PNEUMONIA, UNSPECIFIED ORGANISM (3) COPD exacerbation Code(s): J44.1 - CHRONIC OBSTRUCTIVE PULMONARY DISEASE W (ACUTE) EXACERBATION (4) Diastolic CHF Code(s): I50.30 - UNSPECIFIED DIASTOLIC (CONGESTIVE) HEART FAILURE Qualifiers: Heart failure chronicity: unspecified Qualified Code(s): I50.30 - Unspecified diastolic (congestive) heart failure (5) Hypercholesterolemia Code(s): E78.0 - PURE HYPERCHOLESTEROLEMIA * DO NOT USE * (6) CAD (coronary artery disease) Code(s): I25.10 - ATHSCL HEART DISEASE OF [place] CORONARY ARTERY W/O ANG PCTRS (7) Rheumatoid arthritis Code(s): M06.9 - RHEUMATOID ARTHRITIS, UNSPECIFIED (8) Hypercarbia Code(s): R06.89 - OTHER ABNORMALITIES OF BREATHING
--- NOTE | 2019-07-11 08:32 | PN ---
Progress Note, Physician Chief Complaint: Still c/o SOB - Current Medication List Current Medications: Active Medications Acetaminophen (Tylenol -) 650 mg PO Q4H PRN PRN Reason: FEVER Albuterol Sulfate (Ventolin Hfa Inhaler -) 2 puff IH Q4H PRN PRN Reason: SHORT OF BREATH/WHEEZING Last Admin: 07/07/19 12:40 Dose: 2 puff Albuterol/Ipratropium (Duoneb -) 1 amp NEB RQID [facility] Last Admin: 07/10/19 20:55 Dose: 1 amp Atorvastatin Calcium (Lipitor -) 20 mg PO HS [facility] Last Admin: 07/10/19 22:41 Dose: 20 mg Budesonide/Formoterol Fumarate (Symbicort 160/4.5mcg -) 2 puff IH BID [facility] Last Admin: 07/10/19 22:41 Dose: 2 puff Cefuroxime Axetil (Ceftin -) 500 mg PO BIDWM [facility] Last Admin: 07/10/19 18:51 Dose: 500 mg Clonazepam (Klonopin -) 0.5 mg PO BID [facility] Last Admin: 07/10/19 22:41 Dose: 0.5 mg Diltiazem HCl (Cardizem -) 30 mg PO Q6HPO [facility] Last Admin: 07/11/19 06:29 Dose: 30 mg Enoxaparin Sodium (Lovenox -) 40 mg SQ DAILY [facility] Last Admin: 07/10/19 09:11 Dose: 40 mg Folic Acid (Folic Acid -) 1 mg PO DAILY [facility] Last Admin: 07/10/19 09:10 Dose: 1 mg Methotrexate (Mexate -) 15 mg PO Q7D@1000 [facility] Last Admin: 07/05/19 09:36 Dose: 15 mg Pantoprazole Sodium (Protonix -) 20 mg PO DAILY [facility] Last Admin: 07/10/19 09:10 Dose: 20 mg Prednisone (Deltasone -) 30 mg PO DAILY [facility] Last Admin: 07/10/19 09:10 Dose: 30 mg Ramipril (Altace -) 5 mg PO DAILY [facility] Last Admin: 07/10/19 09:10 Dose: 5 mg Tiotropium [place] (Spiriva Respimat) 2 puff IH DAILY [facility] Last Admin: 07/10/19 09:12 Dose: 2 puff - Objective Vital Signs: Vital Signs Temperature 97.5 F L 01/13/20 06:25 Pulse Rate 107 H 07/10/19 06:25 Respiratory Rate 20 07/10/19 06:25 Blood Pressure 100/62 07/10/19 06:25 O2 Sat by Pulse Oximetry (%) 95 07/10/19 23:00 General: Young male in mild respiratory distress. HEENT; mucous membranes moist, no anemia, no jaundice, PERRLA, no nystagmus Neck: No JVD, supple, no bruit, thyroid palpably normal, normal carotid pulsations. Chest: Nontender, bilateral wheezing. CVS: S1-S2 regular no murmur/gallop/rub Abdomen: Nondistended, soft, bowel sounds present. 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 , no gross motor sensory deficit Labs: CBC, BMP 07/10/19 12:12 07/10/19 12:12 INR, PTT INR 0.93 (0.83-1.09) 06/28/19 03:20 Problem List - Problems (1) Acute on chronic respiratory failure with hypoxemia Assessment/Plan: On PO Prednisone 30 mg , bronchodilator and pulmonary input Code(s): J96.21 - ACUTE AND CHRONIC RESPIRATORY FAILURE WITH HYPOXIA (2) Pneumonia Assessment/Plan: Completed abx Code(s): J18.9 - PNEUMONIA, UNSPECIFIED ORGANISM (3) COPD exacerbation Assessment/Plan: cont Duo [place] Spiriva symbicort and Po prednisone Code(s): J44.1 - CHRONIC OBSTRUCTIVE PULMONARY DISEASE W (ACUTE) EXACERBATION (4) Diastolic CHF Assessment/Plan: Compensated continue Po Lasix 20 mg daily Code(s): I50.30 - UNSPECIFIED DIASTOLIC (CONGESTIVE) HEART FAILURE Qualifiers: Heart failure chronicity: unspecified Qualified Code(s): I50.30 - Unspecified diastolic (congestive) heart failure (5) Hypercholesterolemia Assessment/Plan: Continue statin Code(s): E78.0 - PURE HYPERCHOLESTEROLEMIA * DO NOT USE * (6) CAD (coronary artery disease) Assessment/Plan: Stable Code(s): I25.10 - ATHSCL HEART DISEASE OF [place] CORONARY ARTERY W/O ANG PCTRS (7) Rheumatoid arthritis Assessment/Plan: Cont home medications. Code(s): M06.9 - RHEUMATOID ARTHRITIS, UNSPECIFIED (8) Hypercarbia Assessment/Plan: Stable Code(s): R06.89 - OTHER ABNORMALITIES OF BREATHING
[2019-07-11] MEDS: ALBUTEROL SO4 2.5/IPRATROPIUM 0.5 INH SOL 3 ML VIAL.NEB. NEB SCH (09:17)
[2019-07-11] MEDS ORDERED: PT OWN MED DRAWER 7, Y5N ONE (10:08)
[2019-07-11] MEDS: FOLIC ACID 1 MG TABLET (FP) PO SCH (10:50)
[2019-07-11] MEDS: clonazePAM 0.5 MG TABLET PO SCH (10:50)
[2019-07-11] MEDS: PANTOPRAZOLE 20 MG TABLET (FP) PO SCH (10:50)
[2019-07-11] MEDS: predniSONE 10 MG TABLET (UD) PO SCH (10:50)
[2019-07-11] MEDS: ENOXAPARIN NA (PORCINE) 40 MG/0.4 ML DISP.SYRIN SQ SCH (10:50)
[2019-07-11] MEDS: CEFUROXIME AXETIL 500 MG TABLET PO SCH (10:50)
[2019-07-11] MEDS: RAMIPRIL 5 MG CAPSULE (FP) PO SCH (10:50)
[2019-07-11] MEDS: TIOTROPIUM BROMIDE 2.5 MCG (SPIRIVA) RESPIMAT INHALER IH SCH (10:51)
[2019-07-11] MEDS: BUDESONIDE/FORMETEROL FUMARATE 160/4.5 mcg INHALER IH SCH (10:51)
[2019-07-11] MEDS ORDERED: ATORVASTATIN CA 40 MG TABLET (FP) PO SCH (11:46)
[2019-07-11 11:52] LABS: HEMATOCRIT 38.6 % (35.4-49); HEMOGLOBIN 12.7 GM/dL (11.7-16.9); MCH 30.4 pg (25.7-33.7); MCHC 32.9 g/dl (32.0-35.9); MEAN CELL VOLUME 92.4 fl (80-96); MEAN PLT VOLUME 8.2 fl (7.5-11.1); PLATELET COUNT 276 K/MM3 (134-434); RBC 4.18 M/mm3 (4.00-5.60); RDW 16.5 % (11.9-15.9); WHITE BLOOD COUNT 22.4 K/mm3 (4.0-10.0)
[2019-07-11 11:56] LABS: BLOOD UREA NITROGEN 25.9 mg/dL (7-18); CREATININE 0.7 mg/dL (0.55-1.3); POTASSIUM 4.8 mmol/L (3.5-5.1)
[2019-07-11 12:12] LABS: ADD RBC MORPHOLOGY YES
--- NOTE | 2019-07-11 12:28 | DS ---
Physical Examination Vital Signs: Vital Signs Temperature 97.5 F L 07/11/19 06:25 Pulse Rate 107 H 07/11/19 06:25 Respiratory Rate 20 07/11/19 06:25 Blood Pressure 100/62 07/11/19 06:25 O2 Sat by Pulse Oximetry (%) 95 07/10/19 23:00 General: Young male in mild respiratory distress. HEENT; mucous membranes moist, no anemia, no jaundice, PERRLA, no nystagmus Neck: No JVD, supple, no bruit, thyroid palpably normal, normal carotid pulsations. Chest: Nontender, bilateral wheezing. CVS: S1-S2 regular no murmur/gallop/rub Abdomen: Nondistended, soft, bowel sounds present. 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 , no gross motor sensory deficit Labs: CBC, BMP 07/11/19 11:06 07/11/19 11:06 Discharge Summary Problems reviewed: Yes Reason For Visit: PNEUMONIA Current Active Problems Acute respiratory failure (Acute) Elevated WBC count (Acute) Hypercarbia (Acute) Hyperkalemia (Acute) Pneumonia (Acute) Condition: Improved - Instructions Diet, Activity, Other Instructions: low salt low cholesterol BIPAP at night and PRN setting 5 and 12 Needs PT and Respiratory PT 2-3 Ltr NC target O2 sat > 90% CBC BMP om Thurs Pulmonary consult Prednisonbe taper; 30 mg for 3 days 25 mg for 3 days 20 mg for 3 days 15 mg for 3 days 10 mg for 3 days 5 mg for 3 days. Referrals: Yohana Hendrix MD [Primary Care Provider] - 2 Weeks Modesto Bass MD [Staff Physician] - 2 Weeks Disposition: [facility] - Home Medications Comprehensive Discharge Medication List: Ambulatory Orders Albuterol Sulfate Inhaler - [Ventolin HFA Inhaler -] 1 - 2 inh PO Q4H PRN Budesonide/Formeterol Fumarate [SYMBICORT 160/4.5mcg -] 1 inh PO BID 05/25/18 Clopidogrel Bisulfate [Plavix] 75 mg PO DAILY 05/25/18 Folic Acid 1 mg PO DAILY 05/25/18 Furosemide [Lasix] 40 mg PO DAILY 05/25/18 Hydroxychloroquine Sulfate [Plaquenil] 200 mg PO BID 05/25/18 Methotrexate [Mexate -] 15 mg PO Q7D 05/25/18 Ramipril [Altace] 5 mg PO DAILY 05/25/18 Simvastatin [Zocor -] 40 mg PO HS 05/25/18 Atorvastatin Calcium 20 mg PO HS 06/28/19 Fluticasone/Umeclidin/Vilanter [Trelegy Ellipta 100-62.5-25] 1 each IH ASDIR 07/17 Ramipril 5 mg PO DAILY 06/28/19 Acetaminophen [Tylenol .Regular Strength -] 650 mg PO Q4H PRN tablet 07/11/19 Albuterol 2.5/Ipratropium 0.5 [Duoneb -] 1 amp NEB RQID amp 07/11/19 Clonazepam 0.5 mg PO BID #60 tablet MDD 2 07/11/19 Diltiazem [Cardizem -] 30 mg PO Q6HPO tablet 07/11/19 Enoxaparin [Lovenox -] 40 mg SQ DAILY disp.syrin 07/11/19 Pantoprazole Sodium [Protonix -] 20 mg PO DAILY tablet.ec 07/11/19 Tiotropium [place] [Spiriva Respimat] 2 puff IH DAILY inhaler 07/11/19 predniSONE [Deltasone -] 30 mg PO DAILY tablet 07/11/19
--- NOTE | 2019-07-11 13:00 | PN ---
Progress Note (short form) - Note Progress Note: PULMONARY Breathing slowly improving. Less cough and wheezing. Vital Signs Period Temp Pulse Resp BP Sys/Ellison Pulse Ox Last 24 Hr 97.5 F-98.2 F 105-111 20-22 92-102/53-65 95-97 Gen: less tachypneic with speaking Heart: RRR Lung: distant breath sounds Abd: soft, nontender Ext: no edema CBC, BMP 07/11/19 11:06 07/11/19 11:06 Active Medications Acetaminophen (Tylenol -) 650 mg PO Q4H PRN PRN Reason: FEVER Albuterol Sulfate (Ventolin Hfa Inhaler -) 2 puff IH Q4H PRN PRN Reason: SHORT OF BREATH/WHEEZING Last Admin: 07/07/19 12:40 Dose: 2 puff Albuterol/Ipratropium (Duoneb -) 1 amp NEB RQID [facility] Last Admin: 07/11/19 09:17 Dose: 1 amp Atorvastatin Calcium (Lipitor -) 40 mg PO [facility] Budesonide/Formoterol Fumarate (Symbicort 160/4.5mcg -) 2 puff IH BID [facility] Last Admin: 07/11/19 10:51 Dose: 2 puff Cefuroxime Axetil (Ceftin -) 500 mg PO BIDWM [facility] Last Admin: 07/11/19 10:50 Dose: 500 mg Clonazepam (Klonopin -) 0.5 mg PO BID [facility] Last Admin: 07/11/19 10:50 Dose: 0.5 mg Diltiazem HCl (Cardizem -) 30 mg PO Q6HPO [facility] Last Admin: 07/11/19 06:29 Dose: 30 mg Enoxaparin Sodium (Lovenox -) 40 mg SQ DAILY [facility] Last Admin: 07/11/19 10:50 Dose: 40 mg Folic Acid (Folic Acid -) 1 mg PO DAILY [facility] Last Admin: 07/11/19 10:50 Dose: 1 mg Methotrexate (Mexate -) 15 mg PO Q7D@1000 [facility] Last Admin: 07/05/19 09:36 Dose: 15 mg Pantoprazole Sodium (Protonix -) 20 mg PO DAILY [facility] Last Admin: 07/11/19 10:50 Dose: 20 mg Prednisone (Deltasone -) 30 mg PO DAILY [facility] Last Admin: 07/11/19 10:50 Dose: 30 mg Ramipril (Altace -) 5 mg PO DAILY [facility] Last Admin: 07/11/19 10:50 Dose: 5 mg Tiotropium [place] (Spiriva Respimat) 2 puff IH DAILY [facility] Last Admin: 07/11/19 10:51 Dose: 2 puff A/P Acute on Chronic Hypoxic and Hypercapneic Respiratory Failure improving Acute COPD Exacerbation Pneumonia Rheumatoid Arthritis CAD s/p CABG Lung Nodule LV Diastolic Dysfunction Pulmonary HTN HTN Hyperlipidemia - slow prednisone taper - inhaled bronchodilators - complete antibiotics - O2 to keep SpO2 >90% - BiPAP at night and as needed to assist in work of breathing - DVT prophylaxis
[2019-07-11 14:19] LABS: ANISOCYTOSIS 3+; MACROCYTOSIS 0; PLATELET ESTIMATE NORMAL
[2019-07-11 15:08] VITALS: BP 92/53; PULSE 76; TEMP 98.2
== END 2019-07-11 15:29 | DRG 193 ==
LOC: JER 00:01 → JERBED 05:33 → J4W 08:30
PROVIDERS: ADMIT Internal Medicine; ATTEND Internal Medicine
DX: J18.9 Pneumonia, unspecified organism (principal); J96.21 Acute and chronic respiratory failure with hypoxia; J96.22 Acute and chronic respiratory failure with hypercapnia; J44.1 Chronic obstructive pulmonary disease with (acute) exacerbation; I50.32 Chronic diastolic (congestive) heart failure; I25.10 Atherosclerotic heart disease of native coronary artery without angina pectoris; Z95.1 Presence of aortocoronary bypass graft; M06.9 Rheumatoid arthritis, unspecified; I27.20 Pulmonary hypertension, unspecified; E78.5 Hyperlipidemia, unspecified; I11.0 Hypertensive heart disease with heart failure; E87.5 Hyperkalemia; D72.829 Elevated white blood cell count, unspecified
CPT/HCPCS: 36415; 36600; 71045-TC-FY; 71275-TC; 80048; 80053; 81003; 82308; 82375; 82803; 83050; 83605; 83735; 83880; 84100; 84484; 85025; 85610; 85730; 87040; 87070; 87086; 87205; 87633; 87804; 87899; 93005; 93010; 94640; 94660; 97116-GP; 97163-GP; 99285-25; J8610; Q9967

== ENCOUNTER 2019-07-16 05:44 | Inpatient (IN) | payer OTHER ==
--- NOTE | 2019-07-16 07:12 | PDOC ---
History of Present Illness - General Chief Complaint: Respiratory Stated Complaint: Hyperventilation - History of Present Illness Initial Comments: 07/16/19 09:33 64 y/o M hx of COPD (awaiting lung transplant) CAD s/p CABG, HTN, HLD, HIV, CHF , RA on methotrexate. He was recently discharged from ICU after treatment for pneumonia and acute hypoxic respiratory failure. He presents this a.m from [facility] with shortness of breath and wheezing which began at around 6a.m this morning which woke him up from sleep. He uses BIPAP at night and was on it when this occurred. He received one breathing treatment at [facility] and reported temporary relief of his symptoms, prior to presentation. He endorses cough productive of greenish sputum and tinged with blood. He denies any chest pain, nausea, vomiting, fevers, chills. Past History - Past Medical History Allergies/Adverse Reactions: Allergies Allergy/AdvReac Type Severity Reaction Status Date / Time Penicillins Allergy Severe Rash Verified 07/16/19 06:46 shellfish derived Allergy Severe Rash Verified 07/24/19 14:23 Home Medications: Ambulatory Orders Clopidogrel Bisulfate [Plavix] 75 mg PO DAILY 05/25/18 Folic Acid 1 mg PO DAILY 05/25/18 Furosemide [Lasix] 40 mg PO DAILY 05/25/18 Methotrexate [Mexate -] 7.5 mg PO Q7D 05/25/18 Atorvastatin Calcium 20 mg PO HS 06/28/19 Fluticasone/Umeclidin/Vilanter [Trelegy Ellipta 100-62.5-25] 1 each IH ASDIR 07/17 Albuterol 2.5/Ipratropium 0.5 [Duoneb -] 1 amp NEB RQID amp 07/11/19 Clonazepam 0.5 mg PO BID #60 tablet MDD 2 07/11/19 Diltiazem [Cardizem -] 30 mg PO Q6HPO tablet 07/11/19 Enoxaparin [Lovenox -] 40 mg SQ DAILY disp.syrin 07/11/19 predniSONE [Deltasone -] 30 mg PO DAILY tablet 07/11/19 Acetaminophen [Tylenol .Regular Strength -] 650 mg PO Q6H PRN 07/16/19 Omeprazole 20 mg PO DAILY 07/16/19 Budesonide/Formeterol Fumarate [SYMBICORT 160/4.5mcg -] 2 puff IH BID inhaler 07/25/19 Tiotropium [place] [Spiriva Respimat] 2 puff IH DAILY inhaler 07/25/19 predniSONE [Deltasone -] 30 mg PO DAILY tablet 07/25/19 Anemia: No Asthma: No Cancer: No Cardiac Disorders: Yes (ME, stent, BYPASS) CVA: No COPD: Yes (awaiting lung transplant, O2 Dep) CHF: Yes Dementia: No Diabetes: No GI Disorders: No Disorders: No HTN: Yes Hypercholesterolemia: Yes Liver Disease: No Psychiatric Problems: Yes (anxiety) Seizures: No Thyroid Disease: No - Surgical History Abdominal Surgery: No Appendectomy: No Cardiac Surgery: Yes (Stent, cardiaccath) Cholecystectomy: No Lung Surgery: No Neurologic Surgery: No Orthopedic Surgery: Yes (KNEE) - Immunization History Immunization Up to Date: Yes - Psycho Social/Smoking Cessation Hx Smoking Status: No Smoking History: Unknown if ever smoked Have you smoked in the past 12 months: No Number of Cigarettes Smoked Daily: 0 If you are a former smoker, when did you quit?: 3YRS Hx Alcohol Use: No Drug/Substance Use Hx: No Substance Use Type: None Hx Substance Use Treatment: No Review of Systems - Review of Systems Constitutional: No: Chills, Fever HEENTM: No: Eye Pain, Blurred Vision Respiratory: Yes: Shortness of Breath, Wheezing. No: Cough Cardiac (ROS): No: Chest Pain, Palpitations ABD/GI: No: Nausea, Vomiting : No: Dysuria, Hematuria Musculoskeletal: No: Back Pain Integumentary: No: Pallor, Rash Neurological: No: Headache, Numbness *Physical Exam - Vital Signs Last Vital Signs Temp Pulse Resp BP Pulse Ox 98.6 F 113 H 24 H 107/78 100 07/16/19 05:45 07/16/19 05:45 07/16/19 05:45 07/16/19 05:45 07/16/19 05:45 - Physical Exam 07/16/19 08:45 GENERAL: Awake, alert, and fully oriented. HEAD: No signs of trauma, normocephalic, atraumatic EYES: PERRL EOMI, sclera anicteric, conjunctiva clear ENT: Auricles normal inspection, hearing grossly normal, nares patent, oropharynx clear without exudates. Moist mucosa NECK: Normal ROM, supple, no lymphadenopathy, JVD, or masses LUNGS: wheezing anteriorly, crackles at lung bases bilaterally, subcostal retractions. on 5L O2 NC on assessment. speaking in short sentences HEART: tacchycardic and regular rhythm, normal S1 and S2, no murmurs, rubs or gallops, 1+pedal pulses bilaterally. ABDOMEN: Soft, nontender, normoactive bowel sounds. No guarding, no rebound. No masses EXTREMITIES : 2+ pitting edema bilateral lower extremities to below the knees. Homans sign negative NEUROLOGICAL: Cranial nerves II through XII grossly intact. Normal speech, no focal sensorimotor deficits SKIN: Warm, Dry, normal turgor, no rashes or lesions noted. ecchymoses on left upper extremity and the abdomen. ED Treatment Course - LABORATORY CBC & Chemistry Diagram: 07/23/19 05:50 07/24/19 06:40 Medical Decision Making - Medical Decision Making 07/16/19 08:55 64 y/o M hx of COPD (awaiting lung transplant) CAD s/p CABG, HTN, HLD, HIV, CHF , RA on methotrexate. He was recently discharged from ICU after treatment for pneumonia and acute hypoxic respiratory failure. Pt on nasal cannula 5L at this time workup : ekg, cbc, cmp, abg, troponin, chest x-ray EKG:RBBB with right ventricular hypertrophy, new t wave inversion in V1 and V2 compared to EKG 07/10/2019. Meds: Duonebs x 4, Lasix, solumedrol, Abx (vancomycin, aztreonam) ABG PH 7.18 pco2 >100 Respiratory called for BIPAP placement. 07/16/19 10:17 Sent repeat ABG patient is still retracting on BIPAP 07/16/19 12:31 Pt ABG improved after BIPAP. pH on abg 7.39 PCo2 at [address] Yohana Hendrix's service (tele, floor) Discharge - Discharge Information Problems reviewed: Yes Clinical Impression/Diagnosis: Acute respiratory failure Qualifiers: Respiratory failure complication: unspecified whether with hypoxia or hypercapnia Qualified Code(s): J96.00 - Acute respiratory failure, unspecified whether with hypoxia or hypercapnia Condition: Guarded Disposition: INTERMEDIATE FACILITY - Follow up/Referral - Patient Discharge Instructions - Post Discharge Activity
[2019-07-16] MEDS ORDERED: ALBUTEROL SO4 2.5/IPRATROPIUM 0.5 INH SOL 3 ML VIAL.NEB. NEB ONE ×2 (07:40→16:09)
[2019-07-16] MEDS ORDERED: methylPREDNISolone NA SUCC 125 MG/2 ML VIAL IVPB ONE ×2 (07:40→12:45)
[2019-07-16] MEDS ORDERED: FUROSEMIDE 40 MG/4 ML INJECTABLE VIAL IVPUSH ONE (07:44)
[2019-07-16] MEDS: ALBUTEROL SO4 2.5/IPRATROPIUM 0.5 INH SOL 3 ML VIAL.NEB. NEB SCH ×6 (07:45→21:15)
[2019-07-16] MEDS ORDERED: methylPREDNISolone NA SUCC 125 MG/2 ML VIAL ONE ×2 (07:46→18:36)
[2019-07-16] MEDS ORDERED: FUROSEMIDE 40 MG/4 ML INJECTABLE VIAL ONE (07:46)
[2019-07-16 08:10] LABS: BASO % 0.2 % (0-2.0); EOS % 0.2 % (0-4.5); HEMATOCRIT 34.6 % (35.4-49); HEMOGLOBIN 11.4 GM/dL (11.7-16.9); LYMPH % 1.9 % (8-40); MCH 30.6 pg (25.7-33.7); MEAN CELL VOLUME 92.8 fl (80-96); MONO % 3.9 % (3.8-10.2); NEUT % 93.8 % (42.8-82.8); PLATELET COUNT 256 K/MM3 (134-434); RBC 3.73 M/mm3 (4.00-5.60); RDW 16.7 % (11.9-15.9); WHITE BLOOD COUNT 19.6 K/mm3 (4.0-10.0)
[2019-07-16] MEDS ORDERED: LIDOCAINE HCL 2% JELLY (5 ML/TUBE) ONE (08:10)
--- NOTE | 2019-07-16 08:27 | PDOC ---
Attending Attestation - Resident Resident Name: AzaliamaryJefferytelma - ED Attending Attestation I have performed the following: I have examined & evaluated the patient, The case was reviewed & discussed with the resident, I agree w/resident's findings & plan, Exceptions are as noted - HPI HPI: 07/16/19 08:20 64 M with h/o HTN, CAD s/p CABG, HfpEF, Advanced COPD on Home O2, RA on Methotrexate, HIV, recent admission for COPD, presenting to ED for worsening SOB and cough. Pt denies F/C. Denies CP. Denies any worsening lower extremity edema. - Physicial Exam PE: 07/16/19 08:27 "GENERAL: Awake, alert, and fully oriented, in no acute distress. HEAD: No signs of trauma EYES: PERRLA, EOMI, sclera anicteric, conjunctiva clear ENT: Auricles normal inspection, hearing grossly normal, nares patent, oropharynx clear without exudates. Moist mucosa NECK: Nontender, no stepoffs, Normal ROM, supple, no lymphadenopathy, JVD, or masses LUNGS: + diffuse rhonchi and wheezing HEART: Regular rate and rhythm, normal S1 and S2, no murmurs, rubs or gallops ABDOMEN: Soft, nontender, normoactive bowel sounds. No guarding, no rebound. No masses EXTREMITIES: + 1 PE BLE. No clubbing or cyanosis. No cords, erythema, or tenderness NEUROLOGICAL: Cranial nerves II through XII intact. 5/5 strength and sensation in all extremities, Normal speech, normal gait, normal cerebellar function SKIN: Warm, Dry, normal turgor, no rashes or lesions noted. - Critical Care Time Total Critical Care Time: 60 Critical Care Statement: The care of this patient involved high complexity decision making to prevent further life threatening deterioration of the patient 's condition and/or to evaluate & treat vital organ system(s) failure or risk of failure. - Medical Decision Making 07/16/19 08:27 64 M with SOB and cough. Wheezing and rhonchorous on exam. Suspect COPD flare, hypercapnic respiratory failure. Less likely volume overload. - Labs - CXR - Nebs, steroids, lasix 07/16/19 09:24 ABG pH 7.18, CO2 >100 Pt on BiPAP with continuous nebs 07/16/19 11:23 Repeat gas significantly improved, acidosis resolved, CO2 now 59
[2019-07-16 08:34] LABS: ALLENS TEST POSITIVE
[2019-07-16 08:38] LABS: ALBUMIN 3.2 g/dl (3.4-5.0); BILIRUBIN,TOTAL 0.8 mg/dL (0.2-1); BLOOD UREA NITROGEN 12.6 mg/dL (7-18); CALCIUM 8.8 mg/dL (8.5-10.1); CREATININE 0.5 mg/dL (0.55-1.3); POTASSIUM 4.6 mmol/L (3.5-5.1); TOT PROT 6.8 g/dl (6.4-8.2)
[2019-07-16 08:49] LABS: ARTERIAL BLD GAS O2 SATURATION 98.3 % (95-98); ARTERIAL BLOOD GAS PO2 162 mmHg (80-100)
[2019-07-16 08:50] LABS: CARBOXYHEMOGLOBIN 0.6 % (0-2)
[2019-07-16 08:52] LABS: ARTERIAL BLOOD GAS pH 7.18 (7.35-7.45)
[2019-07-16 08:53] LABS: ARTERIAL BLOOD GAS PCO2 > 100 mmHg (35-45)
[2019-07-16] MEDS ORDERED: VANCOMYCIN 1 GM in D5W (PRE-DOCKED) 1,000 MG/250 ML IVPB ONE (09:12)
[2019-07-16] MEDS ORDERED: AZTREONAM 1 GM in DEXTROSE 5%-WATER - 50 ML IVPB ONE (09:12)
[2019-07-16] MEDS ORDERED: AZTREONAM 1 GM VIAL (RESTRICTED TO ID) ONE ×3 (09:17→23:31)
[2019-07-16] MEDS ORDERED: VANCOMYCIN 1 GRAM (PRE-DOCKED) 1,000 MG/250 ML BAG IVPB ONE (09:18)
[2019-07-16 10:56] LABS: ARTERIAL BLOOD GAS pH 7.39 (7.35-7.45)
[2019-07-16 10:57] LABS: ARTERIAL BLD GAS O2 SATURATION 91.1 % (95-98); ARTERIAL BLOOD GAS BASE EXCESS 8.5 meq/l (-2-2); ARTERIAL BLOOD GAS PCO2 59.5 mmHg (35-45); ARTERIAL BLOOD GAS PO2 59.7 mmHg (80-100); CARBOXYHEMOGLOBIN 1.2 % (0-2)
[2019-07-16 10:59] LABS: ALLENS TEST POSITIVE
[2019-07-16 12:32] LABS: ANISOCYTOSIS 1+; MACROCYTOSIS 0; OVALOCYTE 1+; PLATELET ESTIMATE NORMAL
[2019-07-16] MEDS ORDERED: ACETAMINOPHEN 325 MG TABLET (FP) PO PRN (12:42)
[2019-07-16] MEDS ORDERED: AZTREONAM 1 GM VIAL (RESTRICTED TO ID) IVPB SCH (13:00)
[2019-07-16 14:24] LABS: MAGNESIUM 2.3 mg/dL (1.8-2.4); N-TERMINAL BNP 118.4 pg/ml (5-125)
--- NOTE | 2019-07-16 15:18 | HP ---
Admitting History and Physical - Primary Care Physician PCP: Yohana Hnedrix - Admission Chief Complaint: Confusion with respiratory distress History of Present Illness: 64 yrs old man e advanced COPD , Pulmonary Fibrosis, Home O2 and BIPAP at Night and PRN, CAD s/p CABG, Rheumatoid arthritis, Pulmonary HTN<, HfpEF, recently discharged to [facility] on 07/11/2019 after prolonged hospitalization on Prednisone taper gradually improving, last night slept off BiPAP due to hot weather, patient was found confused and SOB on arrival to ED O2 sat reported low with PCO2 98 patient was put on BIPAP rpt O2 sat ABG shows PCO2 59 patient patient denies any chest pain, fever or expectoration, feels weak saturating well on BIAPAP History Source: Patient - Past Medical History Cardiovascular: Yes: CAD, CHF, HTN, Hyperlipdemia Pulmonary: Yes: COPD, O2 Dependent, Other (bullous emphysema) Heme/Onc: Yes: Anemia Infectious Disease: Yes: HIV Psych: Yes: Addictions (heroin), Anxiety Musculoskeletal: Yes: Chronic low back pain Rheumatology: Yes: Rheumatoid Arthritis - Past Surgical History Past Surgical History: Yes: CABG, Stent - Smoking History Smoking history: Unknown if ever smoked Have you smoked in the past 12 months: No Aproximately how many cigarettes per day: 0 If you are a former smoker, when did you quit?: 3YRS - Alcohol/Substance Use Hx Alcohol Use: No History of Substance Use: reports: None Home Medications - Allergies Allergies/Adverse Reactions: Allergies Allergy/AdvReac Type Severity Reaction Status Date / Time Penicillins Allergy Severe Rash Verified 07/16/19 06:46 seafood Allergy Severe Rash Uncoded 07/16/19 06:46 - Home Medications Home Medications: Ambulatory Orders Clopidogrel Bisulfate [Plavix] 75 mg PO DAILY 05/25/18 Folic Acid 1 mg PO DAILY 05/25/18 Furosemide [Lasix] 40 mg PO DAILY 05/25/18 Methotrexate [Mexate -] 7.5 mg PO Q7D 05/25/18 Atorvastatin Calcium 20 mg PO HS 06/28/19 Fluticasone/Umeclidin/Vilanter [Trelegy Ellipta 100-62.5-25] 1 each IH ASDIR 07/17 Ramipril 5 mg PO DAILY 06/28/19 Albuterol 2.5/Ipratropium 0.5 [Duoneb -] 1 amp NEB RQID amp 07/11/19 Clonazepam 0.5 mg PO BID #60 tablet MDD 2 07/11/19 Diltiazem [Cardizem -] 30 mg PO Q6HPO tablet 07/11/19 Enoxaparin [Lovenox -] 40 mg SQ DAILY disp.syrin 07/11/19 predniSONE [Deltasone -] 30 mg PO DAILY tablet 07/11/19 Acetaminophen [Tylenol .Regular Strength -] 650 mg PO Q6H PRN 07/16/19 Omeprazole 20 mg PO DAILY 07/16/19 Family Medical History Family Hx Cancer: Father (HTN) Review of Systems - Review of Systems Constitutional: reports: Lethargy. denies: Chills, Diaphoresis, Fever Eyes: denies: Blind Spots, Blurred Vision HENT: denies: Difficult Swallowing, Ear Discharge Neck: denies: Decreased ROM, Lumps, Pain on Movement Cardiovascular: reports: Edema, Shortness of Breath. denies: Chest Pain Respiratory: reports: Cough, Exercise Intolerance, Orthopnea Gastrointestinal: denies: Abdominal Pain, Bloating, Constipation, Diarrhea Genitourinary: denies: Burning, Discharge, Dysuria Integumentary: denies: Blister, Bruising, Change in Color Neurological: reports: Confusion. denies: Change in LOC, Change in Speech Hematology/Lymphatic: denies: Easily Bruised, Excessive Bleeding Psychiatric: reports: Anxiety. denies: Altered Sleep Pattern Physical Examination Vital Signs: Vital Signs Temperature 98.6 F 07/16/19 05:45 Pulse Rate 111 H 07/16/19 14:09 Respiratory Rate 15 07/16/19 14:09 Blood Pressure 104/77 07/16/19 14:09 O2 Sat by Pulse Oximetry (%) 100 07/16/19 14:09 Middle aged sick looking man on BIPAP HEENT: Mm moist, no anemia, PERRLA EOMI NECK: No JVD No Bruit CHEST: B/L minimal wheezes CVS: S1S2 Tachycardia ABD: Non tender Bs + EXT: Trace edema INTERNATIONAL MANAGER: AOX3 Non Focal Labs: ABG Results ABG pH 7.39 (7.35-7.45) 07/16/19 10:06 ABG pCO2 at Pt Temp 59.5 mmHg (35-45) H 07/16/19 10:06 ABG pO2 at Pt Temp 59.7 mmHg (80-100) L 07/16/19 10:06 ABG HCO3 34.8 mmol/L (22-27) H 07/16/19 10:06 ABG O2 Sat (Measured) 91.1 % (95-98) L 07/16/19 10:06 ABG O2 Content 13.8 % vol 07/16/19 10:06 ABG Base Excess 8.5 meq/l (-2-2) H 07/16/19 10:06 WBC 19.6 K/mm3 (4.0-10.0) H 07/16/19 07:54 RBC 3.73 M/mm3 (4.00-5.60) L 07/16/19 07:54 Hgb 11.4 GM/dL (11.7-16.9) L 07/16/19 07:54 Hct 34.6 % (35.4-49) L 07/16/19 07:54 MCV 92.8 fl (80-96) 07/16/19 07:54 MCH 30.6 pg (25.7-33.7) 07/16/19 07:54 MCHC 33.0 g/dl (32.0-35.9) 07/16/19 07:54 RDW 16.7 % (11.9-15.9) H 07/16/19 07:54 Plt Count 256 K/MM3 (134-434) 07/16/19 07:54 MPV 9.0 fl (7.5-11.1) 07/16/19 07:54 Absolute Neuts (auto) 18.4 K/mm3 (1.5-8.0) H 07/16/19 07:54 Neutrophils % 93.8 % (42.8-82.8) H 07/16/19 07:54 Neutrophils % (Manual) 86.0 % (42.8-82.8) H 07/16/19 07:54 Band Neutrophils % 4.0 % 07/16/19 07:54 Lymphocytes % 1.9 % (8-40) L 07/16/19 07:54 Lymphocytes % (Manual) 3.0 % (8-40) L D 07/16/19 07:54 Monocytes % 3.9 % (3.8-10.2) 07/16/19 07:54 Monocytes % (Manual) 4 % (3.8-10.2) D 07/16/19 07:54 Eosinophils % 0.2 % (0-4.5) D 07/16/19 07:54 Eosinophils % (Manual) 0.0 % (0-4.5) 07/16/19 07:54 Basophils % 0.2 % (0-2.0) 07/16/19 07:54 Basophils % (Manual) 0.0 % (0-2.0) 07/16/19 07:54 Myelocytes % (Man) 0 % (0-2) D 07/16/19 07:54 Promyelocytes % (Man) 0 % (0-2) 07/16/19 07:54 Blast Cells % (Manual) 0 % (0-0) 07/16/19 07:54 Nucleated RBC % 1 % (0-0) H 07/16/19 07:54 Metamyelocytes 2 % (0-2) D 07/16/19 07:54 Hypochromia 0 07/16/19 07:54 Platelet Estimate Normal 07/16/19 07:54 Platelet Comment Present 07/16/19 07:54 Polychromasia 0 07/16/19 07:54 Poikilocytosis 1+ 07/16/19 07:54 Anisocytosis 1+ 07/16/19 07:54 Microcytosis 1+ 07/16/19 07:54 Macrocytosis 0 07/16/19 07:54 Spherocytes 1+ 07/16/19 07:54 Ovalocytes 1+ 07/16/19 07:54 Sodium 137 mmol/L (136-145) 07/16/19 07:54 Potassium 4.6 mmol/L (3.5-5.1) 07/16/19 07:54 Chloride 98 mmol/L (98-107) 07/16/19 07:54 Carbon Dioxide 35 mmol/L (21-32) H 07/16/19 07:54 Anion Gap 5 MMOL/L (8-16) L 07/16/19 07:54 BUN 12.6 mg/dL (7-18) 07/16/19 07:54 Creatinine 0.5 mg/dL (0.55-1.3) L 07/16/19 07:54 Est GFR (CKD-EPI)AfAm 134.61 07/16/19 07:54 Est GFR (CKD-EPI)NonAf 116.14 07/16/19 07:54 Random Glucose 98 mg/dL (74-106) 07/16/19 07:54 Calcium 8.8 mg/dL (8.5-10.1) 07/16/19 07:54 Magnesium 2.3 mg/dL (1.8-2.4) 07/16/19 07:54 Total Bilirubin 0.8 mg/dL (0.2-1) 07/16/19 07:54 AST 39 U/L (15-37) H 07/16/19 07:54 ALT 60 U/L (13-61) 07/16/19 07:54 Alkaline Phosphatase 127 U/L (45-117) H 07/16/19 07:54 Troponin I < 0.02 ng/ml (0.00-0.05) 07/16/19 07:54 B-Natriuretic Peptide 118.4 pg/ml (5-125) 07/16/19 07:54 Total Protein 6.8 g/dl (6.4-8.2) 07/16/19 07:54 Albumin 3.2 g/dl (3.4-5.0) L 07/16/19 07:54 Imaging - Results X-ray: Report Reviewed (CXR: No inftrates) EKG: Report Reviewed (Sinus Tachycradia no acute St T changes) Problem List - Problems (1) Acute respiratory failure with hypoxia and hypercarbia Assessment/Plan: Due to advanced COPD and non complince with BIAPA, cont BIPAP, Pulmonary consult , Duneb add Spiriva , cont current abx, improved PCO2 Problems reviewed: Yes Code(s): J96.01 - ACUTE RESPIRATORY FAILURE WITH HYPOXIA; J96.02 - ACUTE RESPIRATORY FAILURE WITH HYPERCAPNIA (2) COPD exacerbation Assessment/Plan: cont IV asteroids Nebs and BiPAP Problems reviewed: Yes Code(s): J44.1 - CHRONIC OBSTRUCTIVE PULMONARY DISEASE W (ACUTE) EXACERBATION (3) Respiratory acidosis Assessment/Plan: Due to Hypercarbia now improved Problems reviewed: Yes Code(s): E87.2 - ACIDOSIS (4) Anxiety and depression Assessment/Plan: Cont Home meds Problems reviewed: Yes Code(s): F41.9 - ANXIETY DISORDER, UNSPECIFIED; F32.9 - MAJOR DEPRESSIVE DISORDER, SINGLE EPISODE, UNSPECIFIED (5) Diastolic CHF Assessment/Plan: F/U BMP PRN Lasix and Ramipril Problems reviewed: Yes Code(s): I50.30 - UNSPECIFIED DIASTOLIC (CONGESTIVE) HEART FAILURE Qualifiers: Heart failure chronicity: unspecified Qualified Code(s): I50.30 - Unspecified diastolic (congestive) heart failure (6) History of coronary artery bypass graft Assessment/Plan: Compensated Code(s): Z95.1 - PRESENCE OF AORTOCORONARY BYPASS GRAFT (7) Rheumatoid arthritis Assessment/Plan: Cont Methotrexate wkly and Folic acid Problems reviewed: Yes Code(s): M06.9 - RHEUMATOID ARTHRITIS, UNSPECIFIED
--- NOTE | 2019-07-16 15:22 | CON.PULM ---
Consult Consult Specialty:: PULMONARY Referred by:: Dr Hendrix Reason for Consultation:: respiratory failure - History of Present Illness Chief Complaint: shortness of breath History of Present Illness: 64yo male with h/o end stage COPD, chronic hypoxic and hypercapneic respiratory failure, CAD s/p CABG, HTN, hyperlipidemia, rheumatoid arthritis, LV diastolic dysfunction, pulmonary HTN, recently admitted with COPD exacerbation who was transferred from the assisted for worsening shortness of breath and cough. No fevers, chills or sweats. States that he slept last night with the BiPAP off. Found to be hypercapneic with pCO2 >100, placed on BiPAP with improvement in symptoms. - History Source History Provided By: Patient, Medical Record Limitations to Obtaining History: No Limitations - Past Medical History Cardio/Vascular: Yes: CAD, CHF, HTN, Hyperlipdemia Pulmonary: Yes: COPD, O2 Dependent, Other (bullous emphysema) Infectious Disease: Yes: HIV Psych: Yes: Addictions (heroin), Anxiety Musculoskeletal: Yes: Chronic low back pain Rheumatology: Yes: Rheumatoid Arthritis - Past Surgical History Past Surgical History: Yes: CABG, Stent - Alcohol/Substance Use Hx Alcohol Use: No History of Substance Use: reports: None - Smoking History Smoking history: Unknown if ever smoked Have you smoked in the past 12 months: No Aproximately how many cigarettes per day: 0 If you are a former smoker, when did you quit?: 3YRS Home Medications - Allergies Allergies/Adverse Reactions: Allergies Allergy/AdvReac Type Severity Reaction Status Date / Time Penicillins Allergy Severe Rash Verified 07/16/19 06:46 seafood Allergy Severe Rash Uncoded 07/16/19 06:46 - Home Medications Home Medications: Ambulatory Orders Clopidogrel Bisulfate [Plavix] 75 mg PO DAILY 05/25/18 Folic Acid 1 mg PO DAILY 05/25/18 Furosemide [Lasix] 40 mg PO DAILY 05/25/18 Methotrexate [Mexate -] 7.5 mg PO Q7D 05/25/18 Atorvastatin Calcium 20 mg PO HS 06/28/19 Fluticasone/Umeclidin/Vilanter [Trelegy Ellipta 100-62.5-25] 1 each IH ASDIR 07/17 Ramipril 5 mg PO DAILY 06/28/19 Albuterol 2.5/Ipratropium 0.5 [Duoneb -] 1 amp NEB RQID amp 07/11/19 Clonazepam 0.5 mg PO BID #60 tablet MDD 2 07/11/19 Diltiazem [Cardizem -] 30 mg PO Q6HPO tablet 07/11/19 Enoxaparin [Lovenox -] 40 mg SQ DAILY disp.syrin 07/11/19 predniSONE [Deltasone -] 30 mg PO DAILY tablet 07/11/19 Acetaminophen [Tylenol .Regular Strength -] 650 mg PO Q6H PRN 07/16/19 Omeprazole 20 mg PO DAILY 07/16/19 Review of Systems - Review of Systems Constitutional: reports: Weakness. denies: Chills, Fever Eyes: denies: Recent Change in Vision HENT: denies: Nasal Congestion, Throat Pain Neck: denies: Stiffness, Tenderness Cardiovascular: reports: Shortness of Breath. denies: Chest Pain, Edema, Palpitations Respiratory: reports: Cough, Wheezing. denies: Hemoptysis Gastrointestinal: denies: Abdominal Pain, Nausea, Vomiting Genitourinary: denies: Dysuria, Hematuria Neurological: denies: Dizziness, Headache Endocrine: denies: Unexplained Weight Loss Physical Exam Vital Sings: Vital Signs Temperature 98.6 F 07/16/19 05:45 Pulse Rate 111 H 07/16/19 14:09 Respiratory Rate 15 07/16/19 14:09 Blood Pressure 104/77 07/16/19 14:09 O2 Sat by Pulse Oximetry (%) 100 07/16/19 14:09 Constitutional: Yes: Mild Distress Eyes: Yes: Conjunctiva Clear, EOM Intact HENT: Yes: Atraumatic, Normocephalic Neck: Yes: Supple, Trachea Midline Cardiovascular: Yes: Regular Rate and Rhythm Respiratory: Yes: Poor Air Entry ...Clubbing: No Gastrointestinal: Yes: Normal Bowel Sounds, Soft. No: Tenderness Edema: No Neurological: Yes: Alert, Oriented Labs: CBC, BMP 07/16/19 07:54 07/16/19 07:54 ABG Results ABG pH 7.39 (7.35-7.45) 07/16/19 10:06 ABG pCO2 at Pt Temp 59.5 mmHg (35-45) H 07/16/19 10:06 ABG pO2 at Pt Temp 59.7 mmHg (80-100) L 07/16/19 10:06 ABG HCO3 34.8 mmol/L (22-27) H 07/16/19 10:06 ABG O2 Sat (Measured) 91.1 % (95-98) L 07/16/19 10:06 ABG O2 Content 13.8 % vol 07/16/19 10:06 ABG Base Excess 8.5 meq/l (-2-2) H 07/16/19 10:06 Imaging - Results Chest X-ray: Report Reviewed, Image Reviewed (bibasilar atelectasis vs infiltrates) Problem List - Problems (1) Acute on chronic respiratory failure with hypoxia and hypercapnia Code(s): J96.21 - ACUTE AND CHRONIC RESPIRATORY FAILURE WITH HYPOXIA; J96.22 - ACUTE AND CHRONIC RESPIRATORY FAILURE WITH HYPERCAPNIA (2) COPD exacerbation Code(s): J44.1 - CHRONIC OBSTRUCTIVE PULMONARY DISEASE W (ACUTE) EXACERBATION Assessment/Plan Acute on Chronic Hypoxic and Hypercapneic Respiratory Failure Acute COPD Exacerbation/End Stage COPD LV Diastolic Dysfunction Pulmonary HTN CAD s/p CABG HTN Hyperlipidemia Rheumatoid Arthritis - IV medrol - inhaled bronchodilators - O2 to keep SpO2 >90% - must have BiPAP at night and PRN during day - can likely monitor off antibiotics - f/u cultures - DVT prophylaxis - prognosis guarded Thank you for this consult Pipo Marshall MD
[2019-07-16] MEDS ORDERED: dilTIAZem HCL 30 MG TABLET (FP) ONE (18:35)
[2019-07-16] MEDS: methylPREDNISolone NA SUCC 40 MG/1 ML VIAL IVPB SCH (18:43)
[2019-07-16] MEDS: AZTREONAM 1 GM in DEXTROSE 5%-WATER - 50 ML IVPB SCH (18:43)
[2019-07-16] MEDS: dilTIAZem HCL 30 MG TABLET (FP) PO SCH (18:43)
[2019-07-16] MEDS: ATORVASTATIN CA 20 MG TABLET (FP) PO SCH (22:30)
[2019-07-16] MEDS: clonazePAM 0.5 MG TABLET PO SCH (22:30)
[2019-07-16] MEDS ORDERED: DEXTROSE 5%-WATER - 50 ML IVPB ONE (23:32)
[2019-07-17] MEDS: dilTIAZem HCL 30 MG TABLET (FP) PO SCH ×4 (00:39→18:00)
[2019-07-17] MEDS: AZTREONAM 1 GM in DEXTROSE 5%-WATER - 50 ML IVPB SCH ×2 (02:01→10:12)
[2019-07-17] MEDS: methylPREDNISolone NA SUCC 40 MG/1 ML VIAL IVPB SCH ×3 (02:03→18:00)
[2019-07-17 07:30] LABS: BASO % 0.2 % (0-2.0); HEMATOCRIT 30.5 % (35.4-49); HEMOGLOBIN 10.2 GM/dL (11.7-16.9); LYMPH % 1.5 % (8-40); MCHC 33.2 g/dl (32.0-35.9); MEAN CELL VOLUME 93.1 fl (80-96); MEAN PLT VOLUME 7.7 fl (7.5-11.1); MONO % 1.4 % (3.8-10.2); NEUT % 96.9 % (42.8-82.8); PLATELET COUNT 278 K/MM3 (134-434); RBC 3.28 M/mm3 (4.00-5.60); RDW 16.3 % (11.9-15.9); WHITE BLOOD COUNT 11.6 K/mm3 (4.0-10.0)
[2019-07-17 07:33] LABS: BLOOD UREA NITROGEN 17.3 mg/dL (7-18); CALCIUM 8.8 mg/dL (8.5-10.1); CREATININE 0.7 mg/dL (0.55-1.3); POTASSIUM 4.5 mmol/L (3.5-5.1)
[2019-07-17] MEDS: ALBUTEROL SO4 2.5/IPRATROPIUM 0.5 INH SOL 3 ML VIAL.NEB. NEB SCH ×4 (08:25→20:27)
--- NOTE | 2019-07-17 09:13 | PN ---
Progress Note, Physician Chief Complaint: Patient remained stable less shortness of breath - Current Medication List Current Medications: Active Medications Acetaminophen (Tylenol -) 650 mg PO Q6H PRN PRN Reason: FEVER Albuterol/Ipratropium (Duoneb -) 1 amp NEB RQID [facility] Last Admin: 07/17/19 08:25 Dose: 1 amp Atorvastatin Calcium (Lipitor -) 20 mg PO HS [facility] Last Admin: 07/16/19 22:30 Dose: 20 mg Aztreonam (Azactam (Restricted To Id) -) 1 gm IVPB Q8H [facility]; Protocol Clonazepam (Klonopin -) 0.5 mg PO BID [facility] Last Admin: 07/16/19 22:30 Dose: 0.5 mg Clopidogrel Bisulfate (Plavix -) 75 mg PO DAILY [facility] Diltiazem HCl (Cardizem -) 30 mg PO Q6HPO [facility] Last Admin: 07/17/19 05:47 Dose: 30 mg Enoxaparin Sodium (Lovenox -) 40 mg SQ DAILY [facility] Folic Acid (Folic Acid -) 1 mg PO DAILY [facility] Aztreonam 1 gm/ Dextrose 50 mls @ 100 mls/hr IVPB Q8H-IV [facility] Stop: 07/17/19 10:29 Last Admin: 07/17/19 02:01 Dose: 100 mls/hr Methotrexate (Mexate -) 7.5 mg PO We@1000 [facility] Methylprednisolone Sodium Succinate (Solu-Medrol -) 60 mg IVPB Q8H-IV [facility] Last Admin: 07/17/19 02:03 Dose: 60 mg Pantoprazole Sodium (Protonix -) 20 mg PO DAILY [facility] - Objective Vital Signs: Vital Signs Temperature 97.5 F L 07/17/19 06:00 Pulse Rate 100 H 07/17/19 06:00 Respiratory Rate 20 07/17/19 06:00 Blood Pressure 125/82 07/17/19 06:00 O2 Sat by Pulse Oximetry (%) 100 07/17/19 08:26 Middle aged sick looking man on BIPAP HEENT: Mm moist, no anemia, PERRLA EOMI NECK: No JVD No Bruit CHEST: B/L minimal wheezes CVS: S1S2 Tachycardia ABD: Non tender Bs + EXT: Trace edema CARD STRIPPER: AOX3 Non Focal Labs: CBC, BMP 07/17/19 06:50 07/17/19 06:50 Problem List - Problems (1) Acute respiratory failure with hypoxia and hypercarbia Assessment/Plan: Due to advanced COPD and non compliance with BIAPA, cont BIPAP, Pulmonary consult, Duneb add Spiriva , cont current abx, follow-up ID and pulmonary recommendations Code(s): J96.01 - ACUTE RESPIRATORY FAILURE WITH HYPOXIA; J96.02 - ACUTE RESPIRATORY FAILURE WITH HYPERCAPNIA (2) COPD exacerbation Assessment/Plan: cont IV asteroids Nebs and BiPAP Code(s): J44.1 - CHRONIC OBSTRUCTIVE PULMONARY DISEASE W (ACUTE) EXACERBATION (3) Respiratory acidosis Assessment/Plan: Due to Hypercarbia now improved Code(s): E87.2 - ACIDOSIS (4) Anxiety and depression Assessment/Plan: Cont Home meds Code(s): F41.9 - ANXIETY DISORDER, UNSPECIFIED; F32.9 - MAJOR DEPRESSIVE DISORDER, SINGLE EPISODE, UNSPECIFIED (5) Diastolic CHF Assessment/Plan: F/U BMP PRN Lasix and Ramipril Code(s): I50.30 - UNSPECIFIED DIASTOLIC (CONGESTIVE) HEART FAILURE Qualifiers: Heart failure chronicity: unspecified Qualified Code(s): I50.30 - Unspecified diastolic (congestive) heart failure (6) History of coronary artery bypass graft Assessment/Plan: Compensated Code(s): Z95.1 - PRESENCE OF AORTOCORONARY BYPASS GRAFT (7) Rheumatoid arthritis Assessment/Plan: Cont Methotrexate wkly and Folic acid Code(s): M06.9 - RHEUMATOID ARTHRITIS, UNSPECIFIED (8) Palliative care encounter Assessment/Plan: For goals of care Problems reviewed: Yes Code(s): Z51.5 - ENCOUNTER FOR PALLIATIVE CARE
--- NOTE | 2019-07-17 10:05 | EKG ---
Test Reason : Blood Pressure : / mmHG Vent. Rate : 124 BPM Atrial Rate : 124 BPM P-R Int : 100 ms QRS Dur : 122 ms QT Int : 308 ms P-R-T Axes : 081 112 065 degrees QTc Int : 442 ms SINUS TACHYCARDIA WITH SHORT CO RIGHT BUNDLE BRANCH BLOCK , PLUS RIGHT VENTRICULAR HYPERTROPHY ABNORMAL ECG WHEN COMPARED WITH ECG OF 10-JUL-2019 09:09, NO SIGNIFICANT CHANGE WAS FOUND Confirmed by ELOISA TIRADO MD ([id number]) on 07/17/2019 10:05:06 AM Referred By: Confirmed By:ELOISA TIRADO MD
[2019-07-17] MEDS ORDERED: AZTREONAM 1 GM VIAL (RESTRICTED TO ID) ONE (10:07)
[2019-07-17] MEDS ORDERED: DEXTROSE 5%-WATER - 50 ML IVPB ONE (10:07)
[2019-07-17] MEDS: PANTOPRAZOLE 20 MG TABLET PO SCH (10:13)
[2019-07-17] MEDS: CLOPIDOGREL BISULFATE 75 MG TABLET (FP) PO SCH (10:13)
[2019-07-17] MEDS: ENOXAPARIN NA (PORCINE) 40 MG/0.4 ML DISP.SYRIN SQ SCH (10:13)
[2019-07-17] MEDS: FOLIC ACID 1 MG TABLET (FP) PO SCH (10:13)
[2019-07-17] MEDS: clonazePAM 0.5 MG TABLET PO SCH ×2 (10:13→22:22)
--- NOTE | 2019-07-17 10:33 | CON.CARD ---
Consult Consult Specialty:: Cardiology - History of Present Illness History of Present Illness: 64 yrs old man e advanced COPD , Pulmonary Fibrosis, Home O2 and BIPAP at Night and PRN, CAD s/p CABG, Rheumatoid arthritis, Pulmonary HTN<, HfpEF, recently discharged to [facility] on 07/11/2019 after prolonged hospitalization on Prednisone taper gradually improving, last night slept off BiPAP patient was found confused and SOB on arrival to ED O2 sat reported low with PCO2 98 patient was put on BIPAP rpt O2 sat ABG shows PCO2 59 patient patient denies any chest pain , fever or expectoration, feels weak saturating well on BIAPAP - History Source History Provided By: Patient, Medical Record - Past Medical History Cardio/Vascular: Yes: CAD, CHF, HTN, Hyperlipdemia Pulmonary: Yes: COPD, O2 Dependent, Other (bullous emphysema) Infectious Disease: Yes: HIV Psych: Yes: Addictions (heroin), Anxiety Musculoskeletal: Yes: Chronic low back pain Rheumatology: Yes: Rheumatoid Arthritis - Past Surgical History Past Surgical History: Yes: CABG, Stent - Alcohol/Substance Use Hx Alcohol Use: No History of Substance Use: reports: None - Smoking History Smoking history: Former smoker Have you smoked in the past 12 months: No Aproximately how many cigarettes per day: 0 If you are a former smoker, when did you quit?: 3YRS Home Medications - Allergies Allergies/Adverse Reactions: Allergies Allergy/AdvReac Type Severity Reaction Status Date / Time Penicillins Allergy Severe Rash Verified 07/16/19 06:46 seafood Allergy Severe Rash Uncoded 07/16/19 06:46 - Home Medications Home Medications: Ambulatory Orders Clopidogrel Bisulfate [Plavix] 75 mg PO DAILY 05/25/18 Folic Acid 1 mg PO DAILY 05/25/18 Furosemide [Lasix] 40 mg PO DAILY 05/25/18 Methotrexate [Mexate -] 7.5 mg PO Q7D 05/25/18 Atorvastatin Calcium 20 mg PO HS 06/28/19 Fluticasone/Umeclidin/Vilanter [Trelegy Ellipta 100-62.5-25] 1 each IH ASDIR 07/17 Ramipril 5 mg PO DAILY 06/28/19 Albuterol 2.5/Ipratropium 0.5 [Duoneb -] 1 amp NEB RQID amp 07/11/19 Clonazepam 0.5 mg PO BID #60 tablet MDD 2 07/11/19 Diltiazem [Cardizem -] 30 mg PO Q6HPO tablet 07/11/19 Enoxaparin [Lovenox -] 40 mg SQ DAILY disp.syrin 07/11/19 predniSONE [Deltasone -] 30 mg PO DAILY tablet 07/11/19 Acetaminophen [Tylenol .Regular Strength -] 650 mg PO Q6H PRN 07/16/19 Omeprazole 20 mg PO DAILY 07/16/19 Review of Systems - Review of Systems Constitutional: reports: No Symptoms Eyes: reports: No Symptoms HENT: reports: No Symptoms Neck: reports: No Symptoms Cardiovascular: reports: Shortness of Breath Respiratory: reports: SOB, SOB on Exertion Gastrointestinal: reports: No Symptoms Genitourinary: reports: No Symptoms Breasts: reports: No Symptoms Reported Musculoskeletal: reports: No Symptoms Integumentary: reports: No Symptoms Neurological: reports: No Symptoms Endocrine: reports: No Symptoms Hematology/Lymphatic: reports: No Symptoms Psychiatric: reports: No Symptoms Vital Signs: Vital Signs Temperature 97.8 F 07/17/19 09:40 Pulse Rate 105 H 07/17/19 09:40 Respiratory Rate 24 H 07/17/19 09:40 Blood Pressure 104/62 07/17/19 09:40 O2 Sat by Pulse Oximetry (%) 100 07/17/19 09:00 Constitutional: Yes: Well Nourished, No Distress, Calm Eyes: Yes: WNL, Conjunctiva Clear, EOM Intact HENT: Yes: WNL, Atraumatic, Normocephalic Neck: Yes: WNL, Supple, Trachea Midline Respiratory: Yes: Diminished, On BiPap, Poor Air Entry Gastrointestinal: Yes: WNL, Normal Bowel Sounds Renal/: Yes: WNL Cardiovascular: Yes: WNL, Regular Rate and Rhythm Heart Sounds: Yes: S1, S2 Musculoskeletal: Yes: WNL Extremities: Yes: WNL Integumentary: Yes: WNL Neurological: Yes: WNL, Alert, Oriented ...Motor Strength: WNL Psychiatric: Yes: WNL, Alert, Oriented - Other Data Labs, Other Data: CBC, BMP 07/17/19 06:50 07/17/19 06:50 Troponin, BNP 07/16/19 07:54 B-Natriuretic Peptide 118.4 Troponin, BNP 07/16/19 07:54 B-Natriuretic Peptide 118.4 Imaging - Results Chest X-ray: Image Reviewed (no i/e) EKG: Image Reviewed (s tachy RBBB) Problem List - Problems (1) Acute respiratory failure with hypoxia and hypercarbia Code(s): J96.01 - ACUTE RESPIRATORY FAILURE WITH HYPOXIA; J96.02 - ACUTE RESPIRATORY FAILURE WITH HYPERCAPNIA (2) Respiratory acidosis Code(s): E87.2 - ACIDOSIS (3) Abnormal LFTs Code(s): R79.89 - OTHER SPECIFIED ABNORMAL FINDINGS OF BLOOD CHEMISTRY (4) Abscess of calf Code(s): L02.419 - CUTANEOUS ABSCESS OF LIMB, UNSPECIFIED (5) Acute on chronic diastolic (congestive) heart failure Code(s): I50.33 - ACUTE ON CHRONIC DIASTOLIC (CONGESTIVE) HEART FAILURE (6) Acute on chronic respiratory failure with hypoxemia Code(s): J96.21 - ACUTE AND CHRONIC RESPIRATORY FAILURE WITH HYPOXIA (7) Acute on chronic respiratory failure with hypoxia and hypercapnia Code(s): J96.21 - ACUTE AND CHRONIC RESPIRATORY FAILURE WITH HYPOXIA; J96.22 - ACUTE AND CHRONIC RESPIRATORY FAILURE WITH HYPERCAPNIA (8) Acute respiratory failure Code(s): J96.00 - ACUTE RESPIRATORY FAILURE, UNSP W HYPOXIA OR HYPERCAPNIA (9) Anxiety and depression Code(s): F41.9 - ANXIETY DISORDER, UNSPECIFIED; F32.9 - MAJOR DEPRESSIVE DISORDER, SINGLE EPISODE, UNSPECIFIED (10) CAD (coronary artery disease) Code(s): I25.10 - ATHSCL HEART DISEASE OF [place] CORONARY ARTERY W/O ANG PCTRS Qualifiers: Coronary Disease-Associated Artery/Lesion type: [place] artery [place] vs. transplanted heart: [place] heart Associated angina: without angina Qualified Code(s): I25.10 - Atherosclerotic heart disease of [place] coronary artery without angina pectoris (11) COPD (chronic obstructive pulmonary disease) Code(s): J44.9 - CHRONIC OBSTRUCTIVE PULMONARY DISEASE, UNSPECIFIED Qualifiers: COPD type: emphysema Emphysema type: unspecified Qualified Code(s): J43.9 - Emphysema, unspecified (12) COPD exacerbation Code(s): J44.1 - CHRONIC OBSTRUCTIVE PULMONARY DISEASE W (ACUTE) EXACERBATION (13) Chronic pain Code(s): G89.29 - OTHER CHRONIC PAIN (14) Compression fracture of L1 lumbar vertebra Code(s): S32.010A - [place]GE COMPRESSION FRACTURE OF FIRST LUMBAR VERTEBRA, INIT Qualifiers: Encounter type: initial encounter (15) Congestive cardiac failure Code(s): I50.9 - HEART FAILURE, UNSPECIFIED (16) Cough Code(s): R05 - COUGH (17) Diastolic CHF Code(s): I50.30 - UNSPECIFIED DIASTOLIC (CONGESTIVE) HEART FAILURE Qualifiers: Heart failure chronicity: unspecified Qualified Code(s): I50.30 - Unspecified diastolic (congestive) heart failure (18) Edema Code(s): R60.9 - EDEMA, UNSPECIFIED Qualifiers: Edema type: unspecified Qualified Code(s): R60.9 - Edema, unspecified (19) Elevated WBC count Code(s): D72.829 - ELEVATED WHITE BLOOD CELL COUNT, UNSPECIFIED (20) Elevated brain natriuretic peptide (BNP) level Code(s): R79.89 - OTHER SPECIFIED ABNORMAL FINDINGS OF BLOOD CHEMISTRY (21) HTN (hypertension) Code(s): I10 - ESSENTIAL (PRIMARY) HYPERTENSION Qualifiers: Hypertension type: essential hypertension Qualified Code(s): I10 - Essential (primary) hypertension (22) History of coronary artery bypass graft Code(s): Z95.1 - PRESENCE OF AORTOCORONARY BYPASS GRAFT (23) History of percutaneous coronary intervention Code(s): Z98.89 - OTHER SPECIFIED POSTPROCEDURAL STATES * DO NOT USE * (24) Hypercarbia Code(s): R06.89 - OTHER ABNORMALITIES OF BREATHING (25) Hypercholesterolemia Code(s): E78.0 - PURE HYPERCHOLESTEROLEMIA * DO NOT USE * (26) Hyperkalemia Code(s): E87.5 - HYPERKALEMIA (27) Hyperkalemia Code(s): E87.5 - HYPERKALEMIA (28) Inguinal hernia Code(s): K40.90 - UNIL INGUINAL HERNIA, W/O OBST OR GANGR, NOT SPCF RECUR (29) Intractable pain Code(s): R52 - PAIN, UNSPECIFIED (30) LLQ pain Code(s): R10.32 - LEFT LOWER QUADRANT PAIN (31) Left groin pain Code(s): R10.32 - LEFT LOWER QUADRANT PAIN (32) Leg pain Code(s): M79.606 - PAIN IN LEG, UNSPECIFIED (33) Lower extremity edema Code(s): R60.0 - LOCALIZED EDEMA (34) Lumbar disc herniation Code(s): M51.26 - OTHER INTERVERTEBRAL DISC DISPLACEMENT, LUMBAR REGION (35) Nosebleed Code(s): R04.0 - EPISTAXIS (36) PSVT (paroxysmal supraventricular tachycardia) Code(s): I47.1 - SUPRAVENTRICULAR TACHYCARDIA (37) Pain and swelling of right lower leg Code(s): M79.661 - PAIN IN RIGHT LOWER LEG; M79.89 - OTHER SPECIFIED SOFT TISSUE DISORDERS (38) Pneumonia Code(s): J18.9 - PNEUMONIA, UNSPECIFIED ORGANISM (39) Radiculopathy Code(s): M54.10 - RADICULOPATHY, SITE UNSPECIFIED Qualifiers: Spinal region: lumbar Qualified Code(s): M54.16 - Radiculopathy, lumbar region (40) Rheumatoid arthritis Code(s): M06.9 - RHEUMATOID ARTHRITIS, UNSPECIFIED (41) Rheumatoid arthritis involving ankle with positive rheumatoid factor Code(s): M05.779 - RHEU ARTHRIT W RHEU FACTOR OF UNSP ANK/FT W/O ORG/SYS INVOLV Qualifiers: Laterality: bilateral Qualified Code(s): M05.771 - Rheumatoid arthritis with rheumatoid factor of right ankle and foot without organ or systems involvement; M05.772 - Rheumatoid arthritis with rheumatoid factor of left ankle and foot without organ or systems involvement (42) Rheumatoid arthritis of multiple sites without organ or system involvement with positive rheumatoid factor Code(s): M05.79 - RHEU ARTHRITIS W RHEU FACTOR MULT SITE W/O ORG/SYS INVOLV (43) Sinus tachycardia Code(s): R00.0 - TACHYCARDIA, UNSPECIFIED Assessment/Plan Advanced COPD , Pulmonary Fibrosis, Home O2 and BIPAP at Night and PRN, CAD s/p CABG, Rheumatoid arthritis, Pulmonary HTN<, HfpEF, no evidence of CHF bnp normal Cont telemetry Treatment as per pulmonary.
[2019-07-17] MEDS: TIOTROPIUM BROMIDE 2.5 MCG (SPIRIVA) RESPIMAT INHALER IH SCH (10:46)
[2019-07-17] MEDS: BUDESONIDE/FORMETEROL FUMARATE 160/4.5 mcg INHALER IH SCH ×2 (10:46→22:21)
--- NOTE | 2019-07-17 11:17 | PN ---
Progress Note (short form) - Note Progress Note: Awake and alert on NIPPV support. Used all night and has been using for a few hours today. Less SOB. No CP. Intake & Output 07/14/19 07/15/19 07/16/19 07/17/19 23:59 23:59 23:59 23:59 Intake Total 700 10 Balance 700 10 Weight 132 lb 6.4 oz 132 lb 6.4 oz Last Vital Signs Temp Pulse Resp BP Pulse Ox 97.8 F 105 H 24 H 104/62 100 07/17/19 09:40 07/17/19 09:40 07/17/19 09:40 07/17/19 09:40 07/17/19 09:00 Active Medications Acetaminophen (Tylenol -) 650 mg PO Q6H PRN PRN Reason: FEVER Albuterol/Ipratropium (Duoneb -) 1 amp NEB RQID [facility] Last Admin: 07/17/19 08:25 Dose: 1 amp Atorvastatin Calcium (Lipitor -) 20 mg PO HS [facility] Last Admin: 07/16/19 22:30 Dose: 20 mg Aztreonam (Azactam (Restricted To Id) -) 1 gm IVPB Q8H [facility]; Protocol Budesonide/Formoterol Fumarate (Symbicort 160/4.5mcg -) 2 puff IH BID [facility] Last Admin: 07/17/19 10:46 Dose: 2 puff Clonazepam (Klonopin -) 0.5 mg PO BID [facility] Last Admin: 07/17/19 10:13 Dose: 0.5 mg Clopidogrel Bisulfate (Plavix -) 75 mg PO DAILY [facility] Last Admin: 07/17/19 10:13 Dose: 75 mg Diltiazem HCl (Cardizem -) 30 mg PO Q6HPO [facility] Last Admin: 07/17/19 05:47 Dose: 30 mg Enoxaparin Sodium (Lovenox -) 40 mg SQ DAILY [facility] Last Admin: 07/17/19 10:13 Dose: 40 mg Folic Acid (Folic Acid -) 1 mg PO DAILY [facility] Last Admin: 07/17/19 10:13 Dose: 1 mg Methotrexate (Mexate -) 7.5 mg PO We@1000 [facility] Methylprednisolone Sodium Succinate (Solu-Medrol -) 60 mg IVPB Q8H-IV [facility] Last Admin: 07/17/19 10:12 Dose: 60 mg Pantoprazole Sodium (Protonix -) 20 mg PO DAILY [facility] Last Admin: 07/17/19 10:13 Dose: 20 mg Tiotropium [place] (Spiriva Respimat) 2 puff IH DAILY [facility] Last Admin: 07/17/19 10:46 Dose: 2 puff Constitutional: Yes: Mildly tachypneic on NIPPV support Eyes: Yes: Conjunctiva Clear, EOM Intact HENT: Yes: Atraumatic, Normocephalic Neck: Yes: Supple, Trachea Midline Cardiovascular: Yes: Regular Rate and Rhythm Respiratory: Yes: Poor Air Entry ...Clubbing: No Gastrointestinal: Yes: Normal Bowel Sounds, Soft. No: Tenderness Edema: No Neurological: Yes: Alert, Oriented Labs: Laboratory Results - last 24 hr 07/16/19 07/16/19 07/17/19 07:54 07:54 06:50 WBC 11.6 H RBC 3.28 L Hgb 10.2 L Hct 30.5 L MCV 93.1 MCH 31.0 MCHC 33.2 RDW 16.3 H Plt Count 278 MPV 7.7 D Absolute Neuts (auto) 11.2 H Neutrophils % 96.9 H Neutrophils % (Manual) 86.0 H Band Neutrophils % 4.0 Lymphocytes % 1.5 L D Lymphocytes % (Manual) 3.0 L D Monocytes % 1.4 L Monocytes % (Manual) 4 D Eosinophils % 0.0 D Eosinophils % (Manual) 0.0 Basophils % 0.2 Basophils % (Manual) 0.0 Myelocytes % (Man) 0 D Promyelocytes % (Man) 0 Blast Cells % (Manual) 0 Nucleated RBC % 1 H 0 Metamyelocytes 2 D Hypochromia 0 Platelet Estimate Normal Platelet Comment Present Polychromasia 0 Poikilocytosis 1+ Anisocytosis 1+ Microcytosis 1+ Macrocytosis 0 Spherocytes 1+ Ovalocytes 1+ Sodium 137 Potassium 4.6 Chloride 98 Carbon Dioxide 35 H Anion Gap 5 L BUN 12.6 Creatinine 0.5 L Est GFR (CKD-EPI)AfAm 134.61 Est GFR (CKD-EPI)NonAf 116.14 Random Glucose 98 Calcium 8.8 Magnesium 2.3 Total Bilirubin 0.8 AST 39 H ALT 60 Alkaline Phosphatase 127 H B-Natriuretic Peptide 118.4 Total Protein 6.8 Albumin 3.2 L 07/17/19 06:50 WBC RBC Hgb Hct MCV MCH MCHC RDW Plt Count MPV Absolute Neuts (auto) Neutrophils % Neutrophils % (Manual) Band Neutrophils % Lymphocytes % Lymphocytes % (Manual) Monocytes % Monocytes % (Manual) Eosinophils % Eosinophils % (Manual) Basophils % Basophils % (Manual) Myelocytes % (Man) Promyelocytes % (Man) Blast Cells % (Manual) Nucleated RBC % Metamyelocytes Hypochromia Platelet Estimate Platelet Comment Polychromasia Poikilocytosis Anisocytosis Microcytosis Macrocytosis Spherocytes Ovalocytes Sodium 136 Potassium 4.5 Chloride 95 L Carbon Dioxide 37 H Anion Gap 4 L BUN 17.3 Creatinine 0.7 Est GFR (CKD-EPI)AfAm 117.22 Est GFR (CKD-EPI)NonAf 101.14 Random Glucose 114 H Calcium 8.8 Magnesium Total Bilirubin AST ALT Alkaline Phosphatase B-Natriuretic Peptide Total Protein Albumin Problem List - Problems (1) Acute on chronic respiratory failure with hypoxia and hypercapnia Code(s): J96.21 - ACUTE AND CHRONIC RESPIRATORY FAILURE WITH HYPOXIA; J96.22 - ACUTE AND CHRONIC RESPIRATORY FAILURE WITH HYPERCAPNIA (2) COPD exacerbation Code(s): J44.1 - CHRONIC OBSTRUCTIVE PULMONARY DISEASE W (ACUTE) EXACERBATION Assessment/Plan Acute on Chronic Hypoxic and Hypercapneic Respiratory Failure Acute COPD Exacerbation/End Stage COPD LV Diastolic Dysfunction Pulmonary HTN CAD s/p CABG HTN Hyperlipidemia Rheumatoid Arthritis - IV medrol - inhaled bronchodilators - O2 to keep SpO2 >90% - must have NIPPV support at night and PRN during day - Low threshold to DC ABX if cultures are (-) - DVT prophylaxis - prognosis guarded Dr Reynolds
[2019-07-17 12:19] LABS: ANISOCYTOSIS 1+; MACROCYTOSIS 0; PLATELET ESTIMATE NORMAL
--- NOTE | 2019-07-17 14:23 | PN ---
Progress Note (short form) - Note Progress Note: ID CONSULT DICTATED ACUTE EXACERBATION COPD ?TRACHEOBRONCHITIS LEUKOCYTOSIS LIKELY STEROID-INDUCED D/C IV ANTIBIOTICS SHORT COURSE ZITHROMAX
--- NOTE | 2019-07-17 14:46 | CONS ---
INFECTIOUS DISEASE CONSULTATION DATE OF CONSULTATION: DATE OF DICTATION: 07/17/2019 HISTORY: The patient is a 64-year-old who was evaluated for possible pneumonia. He has a history of end-stage COPD. He has had several recent hospital admissions, one recently of which resulted in patient being intubated in the intensive care unit. He now returns from the skilled nursing with complaints of worsening shortness of breath and wheeze. The patient was admitted to the hospital on July 16, 2019. He reported cough productive of greenish sputum with occasional blood streaks at times. He was empirically treated with vancomycin and aztreonam. His course has been notable for elevated white blood cell count. At the present time, he is awake. He is seated in bed on nasal cannula O2. He denies any shortness of breath, chest pain. No fever or chills. PAST MEDICAL HISTORY: Positive for COPD, coronary artery disease, hypertension, hyperlipidemia, congestive heart failure, history of rheumatoid arthritis on methotrexate. PAST SURGICAL HISTORY: Status post coronary artery bypass graft. ALLERGIES: Listed to PENICILLIN, however, patient denies PENICILLIN allergy. MEDICATIONS: Plavix, folic acid, Lasix, methotrexate, Lipitor, ramipril, clonazepam, Cardizem, prednisone, omeprazole. SOCIAL HISTORY: Residing in a retirement facility. SYSTEMS REVIEW: Neurologic: No loss of consciousness, seizure activity, focal weakness. Cardiac: Negative chest pain or palpitations. Respiratory: As per HPI. Gastrointestinal: Negative vomiting or diarrhea. Genitourinary: Negative for urinary tract infection. LABORATORY DATA: White count on admission 19.6, presently 11.6, hematocrit 30.5, platelets 278, creatinine 0.7. Blood cultures are pending. Chest x-ray, negative for acute infiltrate. PHYSICAL EXAMINATION: General: He is seated in bed. He appears slightly short of breath at rest on nasal cannula. Vital Signs: Temperature 97.8, blood pressure 104/62, pulse 105 regular, respirations 24 per minute. HEENT: Sclerae anicteric. Heart: Sounds S1, S2. Lungs: Diminished breath sounds bilaterally. Abdomen: Soft, nontender. Extremities: Positive for peripheral edema. Positive clubbing. IMPRESSION: 1. Acute exacerbation chronic obstructive pulmonary disease. 2. Rule out tracheobronchitis. 3. Leukocytosis likely steroid induced. PLAN: Doubt recurrent pneumonia. We will discontinue IV antibiotics. Short course Zithromax for tracheobronchitis. Continue bronchodilators and steroids. Pulmonary follow up. Thank you for the kind referral. ARTURO HOANG M.D. [id number]
[2019-07-17] MEDS: AZITHROMYCIN 250 MG TABLET PO SCH (15:52)
[2019-07-17] MEDS: ATORVASTATIN CA 20 MG TABLET (FP) PO SCH (22:23)
[2019-07-18] MEDS: dilTIAZem HCL 30 MG TABLET (FP) PO SCH ×5 (01:00→23:37)
[2019-07-18] MEDS: methylPREDNISolone NA SUCC 40 MG/1 ML VIAL IVPB SCH ×3 (01:02→18:18)
--- NOTE | 2019-07-18 08:00 | PN ---
Progress Note, Physician - Current Medication List Current Medications: Active Medications Acetaminophen (Tylenol -) 650 mg PO Q6H PRN PRN Reason: FEVER Albuterol/Ipratropium (Duoneb -) 1 amp NEB RQID [facility] Last Admin: 07/17/19 20:27 Dose: 1 amp Atorvastatin Calcium (Lipitor -) 20 mg PO HS [facility] Last Admin: 07/17/19 22:23 Dose: 20 mg Azithromycin (Zithromax -) 250 mg PO DAILY [facility] Last Admin: 07/17/19 15:52 Dose: 250 mg Budesonide/Formoterol Fumarate (Symbicort 160/4.5mcg -) 2 puff IH BID [facility] Last Admin: 07/17/19 22:21 Dose: 2 puff Clonazepam (Klonopin -) 0.5 mg PO BID [facility] Last Admin: 07/17/19 22:22 Dose: 0.5 mg Clopidogrel Bisulfate (Plavix -) 75 mg PO DAILY [facility] Last Admin: 07/17/19 10:13 Dose: 75 mg Diltiazem HCl (Cardizem -) 30 mg PO Q6HPO [facility] Last Admin: 07/18/19 06:15 Dose: 30 mg Enoxaparin Sodium (Lovenox -) 40 mg SQ DAILY [facility] Last Admin: 07/17/19 10:13 Dose: 40 mg Folic Acid (Folic Acid -) 1 mg PO DAILY [facility] Last Admin: 07/17/19 10:13 Dose: 1 mg Methotrexate (Mexate -) 7.5 mg PO We@1000 [facility] Methylprednisolone Sodium Succinate (Solu-Medrol -) 60 mg IVPB Q8H-IV [facility] Last Admin: 07/18/19 01:02 Dose: 60 mg Pantoprazole Sodium (Protonix -) 20 mg PO DAILY [facility] Last Admin: 07/17/19 10:13 Dose: 20 mg Tiotropium [place] (Spiriva Respimat) 2 puff IH DAILY [facility] Last Admin: 07/17/19 10:46 Dose: 2 puff - Objective Vital Signs: Vital Signs Temperature 97.7 F 07/18/19 06:00 Pulse Rate 93 H 07/18/19 06:00 Respiratory Rate 20 07/18/19 06:00 Blood Pressure 99/61 07/18/19 06:00 O2 Sat by Pulse Oximetry (%) 99 01/20/20 20:30 Middle aged sick looking man on BIPAP HEENT: Mm moist, no anemia, PERRLA EOMI NECK: No JVD No Bruit CHEST: B/L minimal wheezes CVS: S1S2 Tachycardia ABD: Non tender Bs + EXT: Trace edema [employer]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 azithromycin follow-up pulmonary recommendations Code(s): J96.01 - ACUTE RESPIRATORY FAILURE WITH HYPOXIA; J96.02 - ACUTE RESPIRATORY FAILURE WITH HYPERCAPNIA (2) COPD exacerbation Assessment/Plan: cont IV asteroids Nebs and BiPAP Code(s): J44.1 - CHRONIC OBSTRUCTIVE PULMONARY DISEASE W (ACUTE) EXACERBATION (3) Respiratory acidosis Assessment/Plan: Due to Hypercarbia now improved Code(s): E87.2 - ACIDOSIS (4) Anxiety and depression Assessment/Plan: Cont Home meds Code(s): F41.9 - ANXIETY DISORDER, UNSPECIFIED; F32.9 - MAJOR DEPRESSIVE DISORDER, SINGLE EPISODE, UNSPECIFIED (5) Diastolic CHF Assessment/Plan: F/U BMP PRN Lasix and Ramipril Code(s): I50.30 - UNSPECIFIED DIASTOLIC (CONGESTIVE) HEART FAILURE Qualifiers: Heart failure chronicity: unspecified Qualified Code(s): I50.30 - Unspecified diastolic (congestive) heart failure (6) History of coronary artery bypass graft Assessment/Plan: Compensated Code(s): Z95.1 - PRESENCE OF AORTOCORONARY BYPASS GRAFT (7) Rheumatoid arthritis Assessment/Plan: Cont Methotrexate wkly and Folic acid Code(s): M06.9 - RHEUMATOID ARTHRITIS, UNSPECIFIED (8) Palliative care encounter Assessment/Plan: For goals of care Code(s): Z51.5 - ENCOUNTER FOR PALLIATIVE CARE
[2019-07-18] MEDS: ALBUTEROL SO4 2.5/IPRATROPIUM 0.5 INH SOL 3 ML VIAL.NEB. NEB SCH ×4 (08:06→21:05)
[2019-07-18] MEDS ORDERED: PT OWN MED DRAWER 7, Y5N ONE (09:20)
[2019-07-18] MEDS: BUDESONIDE/FORMETEROL FUMARATE 160/4.5 mcg INHALER IH SCH ×2 (09:25→21:15)
[2019-07-18] MEDS: TIOTROPIUM BROMIDE 2.5 MCG (SPIRIVA) RESPIMAT INHALER IH SCH (09:25)
[2019-07-18] MEDS: FOLIC ACID 1 MG TABLET (FP) PO SCH (09:25)
[2019-07-18] MEDS: AZITHROMYCIN 250 MG TABLET PO SCH (09:25)
[2019-07-18] MEDS: clonazePAM 0.5 MG TABLET PO SCH ×2 (09:25→21:07)
[2019-07-18] MEDS: PANTOPRAZOLE 20 MG TABLET PO SCH (09:25)
[2019-07-18] MEDS: ENOXAPARIN NA (PORCINE) 40 MG/0.4 ML DISP.SYRIN SQ SCH (09:25)
[2019-07-18] MEDS: CLOPIDOGREL BISULFATE 75 MG TABLET (FP) PO SCH (09:25)
--- NOTE | 2019-07-18 12:58 | PN ---
Progress Note (short form) - Note Progress Note: Awake and alert on NC O2. Clinically improved today but remains mildly tachypneic just at rest. Used NIPPV all night. Intake & Output 07/15/19 07/16/19 07/17/19 07/18/19 23:59 23:59 23:59 23:59 Intake Total 700 600 690 Output Total 300 Balance 700 300 690 Weight 132 lb 6.4 oz 132 lb 6.4 oz 131 lb 11.2 oz Last Vital Signs Temp Pulse Resp BP Pulse Ox 97.7 F 93 H 20 99/61 99 07/18/19 06:00 07/18/19 06:00 07/18/19 06:00 07/18/19 06:00 07/17/19 20:30 Active Medications Acetaminophen (Tylenol -) 650 mg PO Q6H PRN PRN Reason: FEVER Albuterol/Ipratropium (Duoneb -) 1 amp NEB RQID [facility] Last Admin: 07/18/19 08:06 Dose: 1 amp Atorvastatin Calcium (Lipitor -) 20 mg PO HS [facility] Last Admin: 07/17/19 22:23 Dose: 20 mg Azithromycin (Zithromax -) 250 mg PO DAILY [facility] Last Admin: 07/18/19 09:25 Dose: 250 mg Budesonide/Formoterol Fumarate (Symbicort 160/4.5mcg -) 2 puff IH BID [facility] Last Admin: 07/18/19 09:25 Dose: 2 puff Clonazepam (Klonopin -) 0.5 mg PO BID [facility] Last Admin: 07/18/19 09:25 Dose: 0.5 mg Clopidogrel Bisulfate (Plavix -) 75 mg PO DAILY [facility] Last Admin: 07/18/19 09:25 Dose: 75 mg Diltiazem HCl (Cardizem -) 30 mg PO Q6HPO [facility] Last Admin: 07/18/19 12:21 Dose: 30 mg Enoxaparin Sodium (Lovenox -) 40 mg SQ DAILY [facility] Last Admin: 07/18/19 09:25 Dose: 40 mg Folic Acid (Folic Acid -) 1 mg PO DAILY [facility] Last Admin: 07/18/19 09:25 Dose: 1 mg Methotrexate (Mexate -) 7.5 mg PO We@1000 [facility] Methylprednisolone Sodium Succinate (Solu-Medrol -) 60 mg IVPB Q8H-IV [facility] Last Admin: 07/18/19 09:24 Dose: 60 mg Pantoprazole Sodium (Protonix -) 20 mg PO DAILY [facility] Last Admin: 07/18/19 09:25 Dose: 20 mg Tiotropium [place] (Spiriva Respimat) 2 puff IH DAILY [facility] Last Admin: 07/18/19 09:25 Dose: 2 puff Constitutional: Yes: Mildly tachypneic on NC O2 Eyes: Yes: Conjunctiva Clear, EOM Intact HENT: Yes: Atraumatic, Normocephalic Neck: Yes: Supple, Trachea Midline Cardiovascular: Yes: Regular Rate and Rhythm Respiratory: Yes: Poor Air Entry ...Clubbing: No Gastrointestinal: Yes: Normal Bowel Sounds, Soft. No: Tenderness Edema: No Neurological: Yes: Alert, Oriented Labs: Problem List - Problems (1) Acute on chronic respiratory failure with hypoxia and hypercapnia Code(s): J96.21 - ACUTE AND CHRONIC RESPIRATORY FAILURE WITH HYPOXIA; J96.22 - ACUTE AND CHRONIC RESPIRATORY FAILURE WITH HYPERCAPNIA (2) COPD exacerbation Code(s): J44.1 - CHRONIC OBSTRUCTIVE PULMONARY DISEASE W (ACUTE) EXACERBATION Assessment/Plan Acute on Chronic Hypoxic and Hypercapneic Respiratory Failure Acute COPD Exacerbation/End Stage COPD LV Diastolic Dysfunction Pulmonary HTN CAD s/p CABG HTN Hyperlipidemia Rheumatoid Arthritis - Would keep IV medrol at current dose - inhaled bronchodilators - O2 to keep SpO2 >90% - must have NIPPV support at night and PRN during day - Zithromax - DVT prophylaxis - Prognosis guarded Dr Reynolds
[2019-07-18] MEDS: ATORVASTATIN CA 20 MG TABLET (FP) PO SCH (21:07)
[2019-07-19] MEDS: methylPREDNISolone NA SUCC 40 MG/1 ML VIAL IVPB SCH ×3 (00:59→17:46)
--- NOTE | 2019-07-19 04:54 | PN ---
Progress Note, Physician Chief Complaint: Pt A&Ox3; +SOB, but "tolerable" History of Present Illness: 64 M with h/o HTN, CAD s/p CABG, HfpEF, Advanced COPD on Home O2, RA on Methotrexate, HIV, recent admission for COPD, presenting to ED for worsening SOB (pt blames this on a faulty Bipap machine) and cough. Pt denies F/C. Denies CP. Denies any worsening lower extremity edema. - Current Medication List Current Medications: Active Medications Acetaminophen (Tylenol -) 650 mg PO Q6H PRN PRN Reason: FEVER Albuterol/Ipratropium (Duoneb -) 1 amp NEB RQID [facility] Last Admin: 07/18/19 21:05 Dose: 1 amp Atorvastatin Calcium (Lipitor -) 20 mg PO HS [facility] Last Admin: 07/18/19 21:07 Dose: 20 mg Azithromycin (Zithromax -) 250 mg PO DAILY [facility] Last Admin: 07/18/19 09:25 Dose: 250 mg Budesonide/Formoterol Fumarate (Symbicort 160/4.5mcg -) 2 puff IH BID [facility] Last Admin: 07/18/19 21:15 Dose: 2 puff Clonazepam (Klonopin -) 0.5 mg PO BID [facility] Last Admin: 07/18/19 21:07 Dose: 0.5 mg Clopidogrel Bisulfate (Plavix -) 75 mg PO DAILY [facility] Last Admin: 07/18/19 09:25 Dose: 75 mg Diltiazem HCl (Cardizem -) 30 mg PO Q6HPO [facility] Last Admin: 07/18/19 23:37 Dose: 30 mg Enoxaparin Sodium (Lovenox -) 40 mg SQ DAILY [facility] Last Admin: 07/18/19 09:25 Dose: 40 mg Folic Acid (Folic Acid -) 1 mg PO DAILY [facility] Last Admin: 07/18/19 09:25 Dose: 1 mg Methotrexate (Mexate -) 7.5 mg PO We@1000 [facility] Methylprednisolone Sodium Succinate (Solu-Medrol -) 60 mg IVPB Q8H-IV [facility] Last Admin: 07/19/19 00:59 Dose: 60 mg Pantoprazole Sodium (Protonix -) 20 mg PO DAILY [facility] Last Admin: 07/18/19 09:25 Dose: 20 mg Tiotropium [place] (Spiriva Respimat) 2 puff IH DAILY [facility] Last Admin: 07/18/19 09:25 Dose: 2 puff - Objective Vital Signs: Vital Signs Temperature 98 F 07/19/19 02:00 Pulse Rate 91 H 07/19/19 02:00 Respiratory Rate 20 07/19/19 02:00 Blood Pressure 108/68 07/19/19 02:00 O2 Sat by Pulse Oximetry (%) 98 07/19/19 00:35 Constitutional: Yes: Calm Eyes: Yes: WNL HENT: Yes: WNL Neck: Yes: WNL Cardiovascular: Yes: Tachycardia, S1, S2, S4 Respiratory: Yes: Diminished, On Nasal O2, SOB, Tachypnea Gastrointestinal: Yes: Soft ...Rectal Exam: Yes: Deferred Genitourinary: No: Anuria Extremities: Yes: WNL Edema: No Peripheral Pulses WNL: Yes Integumentary: Yes: Venous Stasis Changes, Other (dusky) Neurological: Yes: Alert, Oriented, Weakness Psychiatric: Yes: Alert, Oriented, Other (anxiety/depression) Labs: CBC, BMP 07/17/19 06:50 07/17/19 06:50 - ....Imaging Chest X-ray: Image Reviewed (copd; new changes at bases (infiltrate/atelectasis) ) EKG: Image Reviewed (sinus tachycardia; short TX) Problem List - Problems (1) Palliative care encounter Code(s): Z51.5 - ENCOUNTER FOR PALLIATIVE CARE (2) Acute on chronic diastolic (congestive) heart failure Assessment/Plan: on diltiazem F/u BUN/Cr Is and Os, daily weight, electrolytes. Code(s): I50.33 - ACUTE ON CHRONIC DIASTOLIC (CONGESTIVE) HEART FAILURE (3) Acute on chronic respiratory failure with hypoxia and hypercapnia Assessment/Plan: Bronchodilators, O2, steroids per patient navigator. Code(s): J96.21 - ACUTE AND CHRONIC RESPIRATORY FAILURE WITH HYPOXIA; J96.22 - ACUTE AND CHRONIC RESPIRATORY FAILURE WITH HYPERCAPNIA (4) Anxiety and depression Code(s): F41.9 - ANXIETY DISORDER, UNSPECIFIED; F32.9 - MAJOR DEPRESSIVE DISORDER, SINGLE EPISODE, UNSPECIFIED (5) CAD (coronary artery disease) Assessment/Plan: ischemic inferior wall on stress MIBI 2013 LDL cholesteol 122 mg/dL on 05/2019. Continue atorvastatin. On clopidogrel. Code(s): I25.10 - ATHSCL HEART DISEASE OF [place] CORONARY ARTERY W/O ANG PCTRS Qualifiers: Coronary Disease-Associated Artery/Lesion type: [place] artery [place] vs. transplanted heart: [place] heart Associated angina: without angina Qualified Code(s): I25.10 - Atherosclerotic heart disease of [place] coronary artery without angina pectoris (6) HTN (hypertension) Code(s): I10 - ESSENTIAL (PRIMARY) HYPERTENSION Qualifiers: Hypertension type: essential hypertension Qualified Code(s): I10 - Essential (primary) hypertension (7) History of coronary artery bypass graft Code(s): Z95.1 - PRESENCE OF AORTOCORONARY BYPASS GRAFT (8) Hypercholesterolemia Code(s): E78.0 - PURE HYPERCHOLESTEROLEMIA * DO NOT USE *
[2019-07-19] MEDS: dilTIAZem HCL 30 MG TABLET (FP) PO SCH ×4 (06:12→23:52)
[2019-07-19] MEDS: ALBUTEROL SO4 2.5/IPRATROPIUM 0.5 INH SOL 3 ML VIAL.NEB. NEB SCH ×4 (07:35→20:16)
[2019-07-19 08:09] LABS: BASO % 0.1 % (0-2.0); HEMOGLOBIN 8.7 GM/dL (11.7-16.9); LYMPH % 1.5 % (8-40); MCH 30.8 pg (25.7-33.7); MCHC 33.6 g/dl (32.0-35.9); MEAN CELL VOLUME 91.5 fl (80-96); MEAN PLT VOLUME 7.5 fl (7.5-11.1); MONO % 3.1 % (3.8-10.2); NEUT % 95.3 % (42.8-82.8); PLATELET COUNT 226 K/MM3 (134-434); RBC 2.84 M/mm3 (4.00-5.60); RDW 16.4 % (11.9-15.9); WHITE BLOOD COUNT 11.4 K/mm3 (4.0-10.0)
[2019-07-19 08:32] LABS: BLOOD UREA NITROGEN 16.4 mg/dL (7-18); CALCIUM 8.9 mg/dL (8.5-10.1); CREATININE 0.6 mg/dL (0.55-1.3); POTASSIUM 4.5 mmol/L (3.5-5.1)
[2019-07-19] MEDS ORDERED: METHOTREXATE 2.5 MG TABLET PO SCH (10:00)
[2019-07-19] MEDS ORDERED: PT OWN MED DRAWER 7, Y5N ONE (10:12)
--- NOTE | 2019-07-19 10:18 | PN ---
Progress Note, Physician Chief Complaint: Patient remained stable less shortness of breath - Current Medication List Current Medications: Active Medications Acetaminophen (Tylenol -) 650 mg PO Q6H PRN PRN Reason: FEVER Albuterol/Ipratropium (Duoneb -) 1 amp NEB RQID [facility] Last Admin: 07/19/19 07:35 Dose: 1 amp Atorvastatin Calcium (Lipitor -) 20 mg PO HS [facility] Last Admin: 07/18/19 21:07 Dose: 20 mg Azithromycin (Zithromax -) 250 mg PO DAILY [facility] Last Admin: 07/18/19 09:25 Dose: 250 mg Budesonide/Formoterol Fumarate (Symbicort 160/4.5mcg -) 2 puff IH BID [facility] Last Admin: 07/18/19 21:15 Dose: 2 puff Clonazepam (Klonopin -) 0.5 mg PO BID [facility] Last Admin: 07/18/19 21:07 Dose: 0.5 mg Clopidogrel Bisulfate (Plavix -) 75 mg PO DAILY [facility] Last Admin: 07/18/19 09:25 Dose: 75 mg Diltiazem HCl (Cardizem -) 30 mg PO Q6HPO [facility] Last Admin: 07/19/19 06:12 Dose: 30 mg Enoxaparin Sodium (Lovenox -) 40 mg SQ DAILY [facility] Last Admin: 07/18/19 09:25 Dose: 40 mg Folic Acid (Folic Acid -) 1 mg PO DAILY [facility] Last Admin: 07/18/19 09:25 Dose: 1 mg Methotrexate (Mexate -) 7.5 mg PO We@1000 [facility] Methylprednisolone Sodium Succinate (Solu-Medrol -) 60 mg IVPB Q8H-IV [facility] Last Admin: 07/19/19 00:59 Dose: 60 mg Pantoprazole Sodium (Protonix -) 20 mg PO DAILY [facility] Last Admin: 07/18/19 09:25 Dose: 20 mg Tiotropium [place] (Spiriva Respimat) 2 puff IH DAILY [facility] Last Admin: 07/18/19 09:25 Dose: 2 puff - Objective Vital Signs: Vital Signs Temperature 97.4 F L 07/19/19 06:00 Pulse Rate 90 07/19/19 06:00 Respiratory Rate 20 07/19/19 06:00 Blood Pressure 116/59 L 07/19/19 06:00 O2 Sat by Pulse Oximetry (%) 98 07/19/19 00:35 Middle aged sick looking man on BIPAP HEENT: Mm moist, no anemia, PERRLA EOMI NECK: No JVD No Bruit CHEST: B/L minimal wheezes CVS: S1S2 Tachycardia ABD: Non tender Bs + EXT: Trace edema [employer]: AOX3 Non Focal Labs: Labs: CBC, BMP 07/19/19 06:40 07/19/19 06:40 Problem List - Problems (1) Acute respiratory failure with hypoxia and hypercarbia Assessment/Plan: Due to advanced COPD and non compliance with BIAPA, cont BIPAP, Pulmonary consult, Gurmeet add Spiriva , on p.o. azithromycin follow-up pulmonary recommendations Code(s): J96.01 - ACUTE RESPIRATORY FAILURE WITH HYPOXIA; J96.02 - ACUTE RESPIRATORY FAILURE WITH HYPERCAPNIA (2) COPD exacerbation Assessment/Plan: cont IV asteroids Nebs and BiPAP Code(s): J44.1 - CHRONIC OBSTRUCTIVE PULMONARY DISEASE W (ACUTE) EXACERBATION (3) Respiratory acidosis Assessment/Plan: Due to Hypercarbia now improved Code(s): E87.2 - ACIDOSIS (4) Anxiety and depression Assessment/Plan: Cont Home meds Code(s): F41.9 - ANXIETY DISORDER, UNSPECIFIED; F32.9 - MAJOR DEPRESSIVE DISORDER, SINGLE EPISODE, UNSPECIFIED (5) Diastolic CHF Assessment/Plan: F/U BMP PRN Lasix and Ramipril Code(s): I50.30 - UNSPECIFIED DIASTOLIC (CONGESTIVE) HEART FAILURE Qualifiers: Heart failure chronicity: unspecified Qualified Code(s): I50.30 - Unspecified diastolic (congestive) heart failure (6) History of coronary artery bypass graft Assessment/Plan: Compensated Code(s): Z95.1 - PRESENCE OF AORTOCORONARY BYPASS GRAFT (7) Rheumatoid arthritis Assessment/Plan: Cont Methotrexate wkly and Folic acid Code(s): M06.9 - RHEUMATOID ARTHRITIS, UNSPECIFIED (8) Palliative care encounter Assessment/Plan: For goals of care Code(s): Z51.5 - ENCOUNTER FOR PALLIATIVE CARE
[2019-07-19] MEDS: clonazePAM 0.5 MG TABLET PO SCH ×2 (10:42→21:23)
[2019-07-19] MEDS: FOLIC ACID 1 MG TABLET (FP) PO SCH (10:42)
[2019-07-19] MEDS: CLOPIDOGREL BISULFATE 75 MG TABLET (FP) PO SCH (10:43)
[2019-07-19] MEDS: PANTOPRAZOLE 20 MG TABLET PO SCH (10:43)
[2019-07-19] MEDS: ENOXAPARIN NA (PORCINE) 40 MG/0.4 ML DISP.SYRIN SQ SCH (10:43)
[2019-07-19] MEDS: TIOTROPIUM BROMIDE 2.5 MCG (SPIRIVA) RESPIMAT INHALER IH SCH (10:45)
[2019-07-19] MEDS: AZITHROMYCIN 250 MG TABLET PO SCH (10:45)
[2019-07-19] MEDS: BUDESONIDE/FORMETEROL FUMARATE 160/4.5 mcg INHALER IH SCH ×2 (10:45→21:22)
--- NOTE | 2019-07-19 11:02 | PN ---
Progress Note, Physician History of Present Illness: 64 yrs old man e advanced COPD , Pulmonary Fibrosis, Home O2 and BIPAP at Night and PRN, CAD s/p CABG, Rheumatoid arthritis, Pulmonary HTN<, HfpEF, recently discharged to [facility] on 07/11/2019 after prolonged hospitalization on Prednisone taper gradually improving, last night slept off BiPAP patient was found confused and SOB on arrival to ED O2 sat reported low with PCO2 98 patient was put on BIPAP rpt O2 sat ABG shows PCO2 59 patient patient denies any chest pain , fever or expectoration, feels weak saturating well on BIAPAP - Current Medication List Current Medications: Active Medications Acetaminophen (Tylenol -) 650 mg PO Q6H PRN PRN Reason: FEVER Albuterol/Ipratropium (Duoneb -) 1 amp NEB RQID [facility] Last Admin: 07/19/19 07:35 Dose: 1 amp Atorvastatin Calcium (Lipitor -) 20 mg PO HS [facility] Last Admin: 07/18/19 21:07 Dose: 20 mg Azithromycin (Zithromax -) 250 mg PO DAILY [facility] Last Admin: 07/19/19 10:45 Dose: 250 mg Budesonide/Formoterol Fumarate (Symbicort 160/4.5mcg -) 2 puff IH BID [facility] Last Admin: 07/19/19 10:45 Dose: 2 puff Clonazepam (Klonopin -) 0.5 mg PO BID [facility] Last Admin: 07/19/19 10:42 Dose: 0.5 mg Clopidogrel Bisulfate (Plavix -) 75 mg PO DAILY [facility] Last Admin: 07/19/19 10:43 Dose: 75 mg Diltiazem HCl (Cardizem -) 30 mg PO Q6HPO [facility] Last Admin: 07/19/19 06:12 Dose: 30 mg Enoxaparin Sodium (Lovenox -) 40 mg SQ DAILY [facility] Last Admin: 07/19/19 10:43 Dose: 40 mg Folic Acid (Folic Acid -) 1 mg PO DAILY [facility] Last Admin: 07/19/19 10:42 Dose: 1 mg Methotrexate (Mexate -) 7.5 mg PO We@1000 [facility] Last Admin: 07/19/19 10:43 Dose: 7.5 mg Methylprednisolone Sodium Succinate (Solu-Medrol -) 60 mg IVPB Q8H-IV [facility] Last Admin: 07/19/19 10:44 Dose: 60 mg Pantoprazole Sodium (Protonix -) 20 mg PO DAILY [facility] Last Admin: 07/19/19 10:43 Dose: 20 mg Tiotropium [place] (Spiriva Respimat) 2 puff IH DAILY [facility] Last Admin: 07/19/19 10:45 Dose: 2 puff - Objective Vital Signs: Vital Signs Temperature 97.4 F L 07/19/19 06:00 Pulse Rate 90 07/19/19 06:00 Respiratory Rate 20 07/19/19 06:00 Blood Pressure 116/59 L 07/19/19 06:00 O2 Sat by Pulse Oximetry (%) 98 07/19/19 00:35 Eyes: Yes: WNL, Conjunctiva Clear, EOM Intact HENT: Yes: WNL, Atraumatic, Normocephalic Neck: Yes: WNL, Supple, Trachea Midline Cardiovascular: Yes: WNL, Regular Rate and Rhythm Respiratory: Yes: Diminished Gastrointestinal: Yes: WNL, Normal Bowel Sounds Genitourinary: Yes: WNL Musculoskeletal: Yes: WNL Extremities: Yes: WNL Edema: No Integumentary: Yes: WNL Neurological: Yes: WNL, Alert, Oriented ...Motor Strength: WNL Psychiatric: Yes: WNL Labs: CBC, BMP 07/19/19 06:40 07/19/19 06:40 Problem List - Problems (1) Acute respiratory failure with hypoxia and hypercarbia Code(s): J96.01 - ACUTE RESPIRATORY FAILURE WITH HYPOXIA; J96.02 - ACUTE RESPIRATORY FAILURE WITH HYPERCAPNIA (2) Respiratory acidosis Code(s): E87.2 - ACIDOSIS (3) Abnormal LFTs Code(s): R79.89 - OTHER SPECIFIED ABNORMAL FINDINGS OF BLOOD CHEMISTRY (4) Abscess of calf Code(s): L02.419 - CUTANEOUS ABSCESS OF LIMB, UNSPECIFIED (5) Acute on chronic diastolic (congestive) heart failure Code(s): I50.33 - ACUTE ON CHRONIC DIASTOLIC (CONGESTIVE) HEART FAILURE (6) Acute on chronic respiratory failure with hypoxemia Code(s): J96.21 - ACUTE AND CHRONIC RESPIRATORY FAILURE WITH HYPOXIA (7) Acute on chronic respiratory failure with hypoxia and hypercapnia Code(s): J96.21 - ACUTE AND CHRONIC RESPIRATORY FAILURE WITH HYPOXIA; J96.22 - ACUTE AND CHRONIC RESPIRATORY FAILURE WITH HYPERCAPNIA (8) Acute respiratory failure Code(s): J96.00 - ACUTE RESPIRATORY FAILURE, UNSP W HYPOXIA OR HYPERCAPNIA (9) Anxiety and depression Code(s): F41.9 - ANXIETY DISORDER, UNSPECIFIED; F32.9 - MAJOR DEPRESSIVE DISORDER, SINGLE EPISODE, UNSPECIFIED (10) CAD (coronary artery disease) Code(s): I25.10 - ATHSCL HEART DISEASE OF [place] CORONARY ARTERY W/O ANG PCTRS Qualifiers: Coronary Disease-Associated Artery/Lesion type: [place] artery [place] vs. transplanted heart: [place] heart Associated angina: without angina Qualified Code(s): I25.10 - Atherosclerotic heart disease of [place] coronary artery without angina pectoris (11) COPD (chronic obstructive pulmonary disease) Code(s): J44.9 - CHRONIC OBSTRUCTIVE PULMONARY DISEASE, UNSPECIFIED Qualifiers: COPD type: emphysema Emphysema type: unspecified Qualified Code(s): J43.9 - Emphysema, unspecified (12) COPD exacerbation Code(s): J44.1 - CHRONIC OBSTRUCTIVE PULMONARY DISEASE W (ACUTE) EXACERBATION (13) Chronic pain Code(s): G89.29 - OTHER CHRONIC PAIN (14) Compression fracture of L1 lumbar vertebra Code(s): S32.010A - WEDGE COMPRESSION FRACTURE OF FIRST LUMBAR VERTEBRA, INIT Qualifiers: Encounter type: initial encounter (15) Congestive cardiac failure Code(s): I50.9 - HEART FAILURE, UNSPECIFIED (16) Cough Code(s): R05 - COUGH (17) Diastolic CHF Code(s): I50.30 - UNSPECIFIED DIASTOLIC (CONGESTIVE) HEART FAILURE Qualifiers: Heart failure chronicity: unspecified Qualified Code(s): I50.30 - Unspecified diastolic (congestive) heart failure (18) Edema Code(s): R60.9 - EDEMA, UNSPECIFIED Qualifiers: Edema type: unspecified Qualified Code(s): R60.9 - Edema, unspecified (19) Elevated WBC count Code(s): D72.829 - ELEVATED WHITE BLOOD CELL COUNT, UNSPECIFIED (20) Elevated brain natriuretic peptide (BNP) level Code(s): R79.89 - OTHER SPECIFIED ABNORMAL FINDINGS OF BLOOD CHEMISTRY (21) HTN (hypertension) Code(s): I10 - ESSENTIAL (PRIMARY) HYPERTENSION Qualifiers: Hypertension type: essential hypertension Qualified Code(s): I10 - Essential (primary) hypertension (22) History of coronary artery bypass graft Code(s): Z95.1 - PRESENCE OF AORTOCORONARY BYPASS GRAFT (23) History of percutaneous coronary intervention Code(s): Z98.89 - OTHER SPECIFIED POSTPROCEDURAL STATES * DO NOT USE * (24) Hypercarbia Code(s): R06.89 - OTHER ABNORMALITIES OF BREATHING (25) Hypercholesterolemia Code(s): E78.0 - PURE HYPERCHOLESTEROLEMIA * DO NOT USE * (26) Hyperkalemia Code(s): E87.5 - HYPERKALEMIA (27) Hyperkalemia Code(s): E87.5 - HYPERKALEMIA (28) Inguinal hernia Code(s): K40.90 - UNIL INGUINAL HERNIA, W/O OBST OR GANGR, NOT SPCF RECUR (29) Intractable pain Code(s): R52 - PAIN, UNSPECIFIED (30) LLQ pain Code(s): R10.32 - LEFT LOWER QUADRANT PAIN (31) Left groin pain Code(s): R10.32 - LEFT LOWER QUADRANT PAIN (32) Leg pain Code(s): M79.606 - PAIN IN LEG, UNSPECIFIED (33) Lower extremity edema Code(s): R60.0 - LOCALIZED EDEMA (34) Lumbar disc herniation Code(s): M51.26 - OTHER INTERVERTEBRAL DISC DISPLACEMENT, LUMBAR REGION (35) Nosebleed Code(s): R04.0 - EPISTAXIS (36) PSVT (paroxysmal supraventricular tachycardia) Code(s): I47.1 - SUPRAVENTRICULAR TACHYCARDIA (37) Pain and swelling of right lower leg Code(s): M79.661 - PAIN IN RIGHT LOWER LEG; M79.89 - OTHER SPECIFIED SOFT TISSUE DISORDERS (38) Pneumonia Code(s): J18.9 - PNEUMONIA, UNSPECIFIED ORGANISM (39) Radiculopathy Code(s): M54.10 - RADICULOPATHY, SITE UNSPECIFIED Qualifiers: Spinal region: lumbar Qualified Code(s): M54.16 - Radiculopathy, lumbar region (40) Rheumatoid arthritis Code(s): M06.9 - RHEUMATOID ARTHRITIS, UNSPECIFIED (41) Rheumatoid arthritis involving ankle with positive rheumatoid factor Code(s): M05.779 - RHEU ARTHRIT W RHEU FACTOR OF UNSP ANK/FT W/O ORG/SYS INVOLV Qualifiers: Laterality: bilateral Qualified Code(s): M05.771 - Rheumatoid arthritis with rheumatoid factor of right ankle and foot without organ or systems involvement; M05.772 - Rheumatoid arthritis with rheumatoid factor of left ankle and foot without organ or systems involvement (42) Rheumatoid arthritis of multiple sites without organ or system involvement with positive rheumatoid factor Code(s): M05.79 - RHEU ARTHRITIS W RHEU FACTOR MULT SITE W/O ORG/SYS INVOLV (43) Sinus tachycardia Code(s): R00.0 - TACHYCARDIA, UNSPECIFIED Assessment/Plan - Problems (1) Palliative care encounter Code(s): Z51.5 - ENCOUNTER FOR PALLIATIVE CARE (2) Acute on chronic diastolic (congestive) heart failure Assessment/Plan: on diltiazem F/u BUN/Cr Is and Os, daily weight, electrolytes. Code(s): I50.33 - ACUTE ON CHRONIC DIASTOLIC (CONGESTIVE) HEART FAILURE (3) Acute on chronic respiratory failure with hypoxia and hypercapnia Assessment/Plan: Bronchodilators, O2, steroids per biodiesel division manager. Code(s): J96.21 - ACUTE AND CHRONIC RESPIRATORY FAILURE WITH HYPOXIA; J96.22 - ACUTE AND CHRONIC RESPIRATORY FAILURE WITH HYPERCAPNIA (4) Anxiety and depression Code(s): F41.9 - ANXIETY DISORDER, UNSPECIFIED; F32.9 - MAJOR DEPRESSIVE DISORDER, SINGLE EPISODE, UNSPECIFIED (5) CAD (coronary artery disease) Assessment/Plan: ischemic inferior wall on stress MIBI 2013 LDL cholesteol 122 mg/dL on 05/2019. Continue atorvastatin. On clopidogrel. Code(s): I25.10 - ATHSCL HEART DISEASE OF [place] CORONARY ARTERY W/O ANG PCTRS Qualifiers: Coronary Disease-Associated Artery/Lesion type: [place] artery [place] vs. transplanted heart: [place] heart Associated angina: without angina Qualified Code(s): I25.10 - Atherosclerotic heart disease of [place] coronary artery without angina pectoris (6) HTN (hypertension) Code(s): I10 - ESSENTIAL (PRIMARY) HYPERTENSION Qualifiers: Hypertension type: essential hypertension Qualified Code(s): I10 - Essential (primary) hypertension (7) History of coronary artery bypass graft Code(s): Z95.1 - PRESENCE OF AORTOCORONARY BYPASS GRAFT (8) Hypercholesterolemia Code(s): E78.0 - PURE HYPERCHOLESTEROLEMIA * DO NOT USE *
[2019-07-19 12:24] LABS: OVALOCYTE 1+; PLATELET ESTIMATE ADEQUATE
--- NOTE | 2019-07-19 15:58 | PN ---
Progress Note (short form) - Note Progress Note: PULMONARY Remains on BiPAP. Alert, awake but more tired today. Vital Signs Period Temp Pulse Resp BP Sys/Ellison Pulse Ox Last 24 Hr 97.4 F-98.0 F 86-108 99-116/58-68 98-100 Gen: mildly tachypneic on BiPAP Heart: RRR Lung: decreased breath sounds at the bases Abd: soft, nontender Ext: no edema CBC, BMP 07/19/19 06:40 07/19/19 06:40 Active Medications Acetaminophen (Tylenol -) 650 mg PO Q6H PRN PRN Reason: FEVER Albuterol/Ipratropium (Duoneb -) 1 amp NEB RQID [facility] Last Admin: 07/19/19 11:05 Dose: 1 amp Atorvastatin Calcium (Lipitor -) 20 mg PO HS [facility] Last Admin: 07/18/19 21:07 Dose: 20 mg Azithromycin (Zithromax -) 250 mg PO DAILY [facility] Last Admin: 07/19/19 10:45 Dose: 250 mg Budesonide/Formoterol Fumarate (Symbicort 160/4.5mcg -) 2 puff IH BID [facility] Last Admin: 07/19/19 10:45 Dose: 2 puff Clonazepam (Klonopin -) 0.5 mg PO BID [facility] Last Admin: 07/19/19 10:42 Dose: 0.5 mg Clopidogrel Bisulfate (Plavix -) 75 mg PO DAILY [facility] Last Admin: 07/19/19 10:43 Dose: 75 mg Diltiazem HCl (Cardizem -) 30 mg PO Q6HPO [facility] Last Admin: 07/19/19 12:00 Dose: 30 mg Enoxaparin Sodium (Lovenox -) 40 mg SQ DAILY [facility] Last Admin: 07/19/19 10:43 Dose: 40 mg Folic Acid (Folic Acid -) 1 mg PO DAILY [facility] Last Admin: 07/19/19 10:42 Dose: 1 mg Methotrexate (Mexate -) 7.5 mg PO We@1000 [facility] Last Admin: 07/19/19 10:43 Dose: 7.5 mg Methylprednisolone Sodium Succinate (Solu-Medrol -) 60 mg IVPB Q8H-IV [facility] Last Admin: 07/19/19 10:44 Dose: 60 mg Pantoprazole Sodium (Protonix -) 20 mg PO DAILY [facility] Last Admin: 07/19/19 10:43 Dose: 20 mg Tiotropium [place] (Spiriva Respimat) 2 puff IH DAILY [facility] Last Admin: 07/19/19 10:45 Dose: 2 puff A/P Acute on Chronic Hypoxic and Hypercapneic Respiratory Failure Acute COPD Exacerbation/End Stage COPD LV Diastolic Dysfunction Pulmonary HTN CAD s/p CABG HTN Hyperlipidemia Rheumatoid Arthritis - continue medrol - inhaled bronchodilators - O2 to keep SpO2 >90% - must have BiPAP at night and PRN during day - f/u cultures - DVT prophylaxis Problem List - Problems (1) Acute on chronic respiratory failure with hypoxia and hypercapnia Code(s): J96.21 - ACUTE AND CHRONIC RESPIRATORY FAILURE WITH HYPOXIA; J96.22 - ACUTE AND CHRONIC RESPIRATORY FAILURE WITH HYPERCAPNIA (2) COPD exacerbation Code(s): J44.1 - CHRONIC OBSTRUCTIVE PULMONARY DISEASE W (ACUTE) EXACERBATION
[2019-07-19] MEDS: ATORVASTATIN CA 20 MG TABLET (FP) PO SCH (21:23)
[2019-07-20] MEDS: methylPREDNISolone NA SUCC 40 MG/1 ML VIAL IVPB SCH ×3 (01:03→17:47)
[2019-07-20] MEDS: dilTIAZem HCL 30 MG TABLET (FP) PO SCH ×3 (06:17→17:46)
[2019-07-20] MEDS: ALBUTEROL SO4 2.5/IPRATROPIUM 0.5 INH SOL 3 ML VIAL.NEB. NEB SCH ×4 (08:00→20:08)
--- NOTE | 2019-07-20 09:44 | PN ---
Progress Note, Physician Chief Complaint: Patient remained stable less shortness of breath, feeling weak - Current Medication List Current Medications: Active Medications Acetaminophen (Tylenol -) 650 mg PO Q6H PRN PRN Reason: FEVER Albuterol/Ipratropium (Duoneb -) 1 amp NEB RQID [facility] Last Admin: 07/20/19 08:00 Dose: 1 amp Atorvastatin Calcium (Lipitor -) 20 mg PO HS [facility] Last Admin: 07/19/19 21:23 Dose: 20 mg Azithromycin (Zithromax -) 250 mg PO DAILY [facility] Last Admin: 07/19/19 10:45 Dose: 250 mg Budesonide/Formoterol Fumarate (Symbicort 160/4.5mcg -) 2 puff IH BID [facility] Last Admin: 07/19/19 21:22 Dose: 2 puff Clonazepam (Klonopin -) 0.5 mg PO BID [facility] Last Admin: 07/19/19 21:23 Dose: 0.5 mg Clopidogrel Bisulfate (Plavix -) 75 mg PO DAILY [facility] Last Admin: 07/19/19 10:43 Dose: 75 mg Diltiazem HCl (Cardizem -) 30 mg PO Q6HPO [facility] Last Admin: 07/20/19 06:17 Dose: 30 mg Enoxaparin Sodium (Lovenox -) 40 mg SQ DAILY [facility] Last Admin: 07/19/19 10:43 Dose: 40 mg Folic Acid (Folic Acid -) 1 mg PO DAILY [facility] Last Admin: 07/19/19 10:42 Dose: 1 mg Methotrexate (Mexate -) 7.5 mg PO We@1000 [facility] Last Admin: 07/19/19 10:43 Dose: 7.5 mg Methylprednisolone Sodium Succinate (Solu-Medrol -) 60 mg IVPB Q8H-IV [facility] Last Admin: 07/20/19 01:03 Dose: 60 mg Pantoprazole Sodium (Protonix -) 20 mg PO DAILY [facility] Last Admin: 07/19/19 10:43 Dose: 20 mg Tiotropium [place] (Spiriva Respimat) 2 puff IH DAILY [facility] Last Admin: 07/19/19 10:45 Dose: 2 puff - Objective Vital Signs: Vital Signs Temperature 98.0 F 07/20/19 06:00 Pulse Rate 90 07/20/19 06:00 Respiratory Rate 20 07/20/19 06:00 Blood Pressure 115/60 07/20/19 06:00 O2 Sat by Pulse Oximetry (%) 99 07/19/19 21:00 Middle aged sick looking man on BIPAP HEENT: Mm moist, no anemia, PERRLA EOMI NECK: No JVD No Bruit CHEST: B/L minimal wheezes CVS: S1S2 Tachycardia ABD: Non tender Bs + EXT: Trace edema FIELD NURSE CASE 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 azithromycin follow-up pulmonary recommendations Code(s): J96.01 - ACUTE RESPIRATORY FAILURE WITH HYPOXIA; J96.02 - ACUTE RESPIRATORY FAILURE WITH HYPERCAPNIA (2) COPD exacerbation Assessment/Plan: cont IV asteroids Nebs and BiPAP Code(s): J44.1 - CHRONIC OBSTRUCTIVE PULMONARY DISEASE W (ACUTE) EXACERBATION (3) Respiratory acidosis Assessment/Plan: Due to Hypercarbia now improved Code(s): E87.2 - ACIDOSIS (4) Anxiety and depression Assessment/Plan: Cont Home meds Code(s): F41.9 - ANXIETY DISORDER, UNSPECIFIED; F32.9 - MAJOR DEPRESSIVE DISORDER, SINGLE EPISODE, UNSPECIFIED (5) Diastolic CHF Assessment/Plan: F/U BMP PRN Lasix and Ramipril Code(s): I50.30 - UNSPECIFIED DIASTOLIC (CONGESTIVE) HEART FAILURE Qualifiers: Heart failure chronicity: unspecified Qualified Code(s): I50.30 - Unspecified diastolic (congestive) heart failure (6) History of coronary artery bypass graft Assessment/Plan: Compensated Code(s): Z95.1 - PRESENCE OF AORTOCORONARY BYPASS GRAFT (7) Rheumatoid arthritis Assessment/Plan: Cont Methotrexate wkly and Folic acid Code(s): M06.9 - RHEUMATOID ARTHRITIS, UNSPECIFIED (8) Palliative care encounter Assessment/Plan: For goals of care Code(s): Z51.5 - ENCOUNTER FOR PALLIATIVE CARE
[2019-07-20] MEDS: clonazePAM 0.5 MG TABLET PO SCH ×2 (10:27→22:00)
[2019-07-20] MEDS: ENOXAPARIN NA (PORCINE) 40 MG/0.4 ML DISP.SYRIN SQ SCH (10:27)
[2019-07-20] MEDS: FOLIC ACID 1 MG TABLET (FP) PO SCH (10:27)
[2019-07-20] MEDS: CLOPIDOGREL BISULFATE 75 MG TABLET (FP) PO SCH (10:28)
[2019-07-20] MEDS: TIOTROPIUM BROMIDE 2.5 MCG (SPIRIVA) RESPIMAT INHALER IH SCH (10:28)
[2019-07-20] MEDS: PANTOPRAZOLE 20 MG TABLET PO SCH (10:28)
[2019-07-20] MEDS: BUDESONIDE/FORMETEROL FUMARATE 160/4.5 mcg INHALER IH SCH ×2 (10:29→22:00)
[2019-07-20] MEDS: AZITHROMYCIN 250 MG TABLET PO SCH (10:29)
--- NOTE | 2019-07-20 11:01 | PN ---
Progress Note, Physician Chief Complaint: Pt A&Ox3; sitting up in chair; no chest pain, status respiratory state. However , earlier in am, tried to stand with assistance, but was too weak. This has made him feel "hopeless" History of Present Illness: 64 M with h/o HTN, CAD s/p CABG, HfpEF, Advanced COPD on Home O2, RA on Methotrexate, HIV, recent admission for COPD, presenting to ED for worsening SOB (pt blames this on a faulty Bipap machine) and cough. Pt denies F/C. Denies CP. Denies any worsening lower extremity edema. - Current Medication List Current Medications: Active Medications Acetaminophen (Tylenol -) 650 mg PO Q6H PRN PRN Reason: FEVER Albuterol/Ipratropium (Duoneb -) 1 amp NEB RQID [facility] Last Admin: 07/20/19 08:00 Dose: 1 amp Atorvastatin Calcium (Lipitor -) 20 mg PO HS [facility] Last Admin: 07/19/19 21:23 Dose: 20 mg Azithromycin (Zithromax -) 250 mg PO DAILY [facility] Last Admin: 07/20/19 10:29 Dose: 250 mg Budesonide/Formoterol Fumarate (Symbicort 160/4.5mcg -) 2 puff IH BID [facility] Last Admin: 07/20/19 10:29 Dose: 2 puff Clonazepam (Klonopin -) 0.5 mg PO BID [facility] Last Admin: 07/20/19 10:27 Dose: 0.5 mg Clopidogrel Bisulfate (Plavix -) 75 mg PO DAILY [facility] Last Admin: 07/20/19 10:28 Dose: 75 mg Diltiazem HCl (Cardizem -) 30 mg PO Q6HPO [facility] Last Admin: 07/20/19 06:17 Dose: 30 mg Enoxaparin Sodium (Lovenox -) 40 mg SQ DAILY [facility] Last Admin: 07/20/19 10:27 Dose: 40 mg Folic Acid (Folic Acid -) 1 mg PO DAILY [facility] Last Admin: 07/20/19 10:27 Dose: 1 mg Methotrexate (Mexate -) 7.5 mg PO We@1000 [facility] Last Admin: 07/19/19 10:43 Dose: 7.5 mg Methylprednisolone Sodium Succinate (Solu-Medrol -) 60 mg IVPB Q8H-IV [facility] Last Admin: 07/20/19 10:28 Dose: 60 mg Pantoprazole Sodium (Protonix -) 20 mg PO DAILY [facility] Last Admin: 07/20/19 10:28 Dose: 20 mg Tiotropium [place] (Spiriva Respimat) 2 puff IH DAILY [facility] Last Admin: 07/20/19 10:28 Dose: 2 puff - Objective Vital Signs: Vital Signs Temperature 98.0 F 07/20/19 06:00 Pulse Rate 90 07/20/19 06:00 Respiratory Rate 20 07/20/19 06:00 Blood Pressure 115/60 07/20/19 06:00 O2 Sat by Pulse Oximetry (%) 99 07/19/19 21:00 Constitutional: Yes: Anxious Eyes: Yes: WNL HENT: Yes: Pharyngeal Erythema Neck: Yes: WNL Cardiovascular: Yes: S1, S2 Respiratory: Yes: Diminished, SOB Gastrointestinal: Yes: Soft ...Rectal Exam: Yes: Deferred Genitourinary: No: Anuria Breast(s): Yes: WNL Musculoskeletal: Yes: Muscle Weakness Extremities: Yes: Cool Edema: No Peripheral Pulses WNL: Yes Integumentary: Yes: WNL Neurological: Yes: Alert, Oriented, Weakness Psychiatric: Yes: Alert, Oriented, Other (depression) Labs: CBC, BMP 07/19/19 06:40 07/19/19 06:40 - ....Imaging Chest X-ray: Image Reviewed EKG: Image Reviewed Problem List - Problems (1) Palliative care encounter Code(s): Z51.5 - ENCOUNTER FOR PALLIATIVE CARE (2) Acute on chronic diastolic (congestive) heart failure Assessment/Plan: on diltiazem F/u BUN/Cr Is and Os, daily weight, electrolytes. 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 Code(s): J96.21 - ACUTE AND CHRONIC RESPIRATORY FAILURE WITH HYPOXIA; J96.22 - ACUTE AND CHRONIC RESPIRATORY FAILURE WITH HYPERCAPNIA (4) Anxiety and depression Assessment/Plan: Pt request speaking with psychiatrist/psychologist. Code(s): F41.9 - ANXIETY DISORDER, UNSPECIFIED; F32.9 - MAJOR DEPRESSIVE DISORDER, SINGLE EPISODE, UNSPECIFIED (5) CAD (coronary artery disease) Assessment/Plan: ischemic inferior wall on stress MIBI 2013 LDL cholesteol 122 mg/dL on 05/2019. Continue atorvastatin, and keep LDL <70 mg/dL. On clopidogrel. Code(s): I25.10 - ATHSCL HEART DISEASE OF [place] CORONARY ARTERY W/O ANG PCTRS Qualifiers: Coronary Disease-Associated Artery/Lesion type: [place] artery [place] vs. transplanted heart: [place] heart Associated angina: without angina Qualified Code(s): I25.10 - Atherosclerotic heart disease of [place] coronary artery without angina pectoris (6) HTN (hypertension) Code(s): I10 - ESSENTIAL (PRIMARY) HYPERTENSION Qualifiers: Hypertension type: essential hypertension Qualified Code(s): I10 - Essential (primary) hypertension (7) History of coronary artery bypass graft Code(s): Z95.1 - PRESENCE OF AORTOCORONARY BYPASS GRAFT (8) Hypercholesterolemia Code(s): E78.0 - PURE HYPERCHOLESTEROLEMIA * DO NOT USE * (9) Depression Assessment/Plan: Pt alert and oriented; morose. When asked what he would like to do, he at one point said "lethal injection, so I won't bother other people". He says "you wouldn't believe all the things going on in my mine, but I know you don't have time for it all". He readily agrees to speak with a psychologist. He is on Klonopin. He is also to have palliatve care discussion. Code(s): F32.9 - MAJOR DEPRESSIVE DISORDER, SINGLE EPISODE, UNSPECIFIED
--- NOTE | 2019-07-20 12:52 | PN ---
Progress Note (short form) - Note Progress Note: Awake and alert on NIPPV support in a chair. Could not stand with PT. Feels hopeless. Intake & Output 07/17/19 07/18/19 07/19/19 07/20/19 23:59 23:59 23:59 23:59 Intake Total 600 1200 480 260 Output Total 300 300 650 300 Balance 300 900 -170 -40 Weight 132 lb 6.4 oz 131 lb 11.2 oz Last Vital Signs Temp Pulse Resp BP Pulse Ox 98.0 F 90 20 115/60 97 07/20/19 06:00 07/20/19 06:00 07/20/19 06:00 07/20/19 06:00 07/20/19 11:32 Active Medications Acetaminophen (Tylenol -) 650 mg PO Q6H PRN PRN Reason: FEVER Albuterol/Ipratropium (Duoneb -) 1 amp NEB RQID [facility] Last Admin: 07/20/19 11:31 Dose: 1 amp Atorvastatin Calcium (Lipitor -) 20 mg PO HS [facility] Last Admin: 07/19/19 21:23 Dose: 20 mg Azithromycin (Zithromax -) 250 mg PO DAILY [facility] Last Admin: 07/20/19 10:29 Dose: 250 mg Budesonide/Formoterol Fumarate (Symbicort 160/4.5mcg -) 2 puff IH BID [facility] Last Admin: 07/20/19 10:29 Dose: 2 puff Clonazepam (Klonopin -) 0.5 mg PO BID [facility] Last Admin: 07/20/19 10:27 Dose: 0.5 mg Clopidogrel Bisulfate (Plavix -) 75 mg PO DAILY [facility] Last Admin: 07/20/19 10:28 Dose: 75 mg Diltiazem HCl (Cardizem -) 30 mg PO Q6HPO [facility] Last Admin: 07/20/19 06:17 Dose: 30 mg Enoxaparin Sodium (Lovenox -) 40 mg SQ DAILY [facility] Last Admin: 07/20/19 10:27 Dose: 40 mg Folic Acid (Folic Acid -) 1 mg PO DAILY [facility] Last Admin: 07/20/19 10:27 Dose: 1 mg Methotrexate (Mexate -) 7.5 mg PO We@1000 [facility] Last Admin: 07/19/19 10:43 Dose: 7.5 mg Methylprednisolone Sodium Succinate (Solu-Medrol -) 40 mg IVPB Q8H-IV [facility] Pantoprazole Sodium (Protonix -) 20 mg PO DAILY [facility] Last Admin: 07/20/19 10:28 Dose: 20 mg Tiotropium [place] (Spiriva Respimat) 2 puff IH DAILY [facility] Last Admin: 07/20/19 10:28 Dose: 2 puff Constitutional: Yes: Mildly tachypneic on NIPPV support Eyes: Yes: Conjunctiva Clear, EOM Intact HENT: Yes: Atraumatic, Normocephalic Neck: Yes: Supple, Trachea Midline Cardiovascular: Yes: Regular Rate and Rhythm Respiratory: Yes: Poor Air Entry ...Clubbing: No Gastrointestinal: Yes: Normal Bowel Sounds, Soft. No: Tenderness Edema: No Neurological: Yes: Alert, Oriented Labs: Laboratory Results - last 24 hr 07/17/19 06:50 Procalcitonin 0.12 H Problem List - Problems (1) Acute on chronic respiratory failure with hypoxia and hypercapnia Code(s): J96.21 - ACUTE AND CHRONIC RESPIRATORY FAILURE WITH HYPOXIA; J96.22 - ACUTE AND CHRONIC RESPIRATORY FAILURE WITH HYPERCAPNIA (2) COPD exacerbation Code(s): J44.1 - CHRONIC OBSTRUCTIVE PULMONARY DISEASE W (ACUTE) EXACERBATION Assessment/Plan Acute on Chronic Hypoxic and Hypercapneic Respiratory Failure Acute COPD Exacerbation/End Stage COPD LV Diastolic Dysfunction Pulmonary HTN CAD s/p CABG HTN Hyperlipidemia Rheumatoid Arthritis - Wean IV Medrol - inhaled bronchodilators - O2 to keep SpO2 >90% - must have NIPPV support at night and PRN during day - Zithromax - DVT prophylaxis - Prognosis guarded - Noted for psychologist evaluation and Palliative Care evaluation Dr Reynolds
--- NOTE | 2019-07-20 20:17 | CON.PSL ---
Psychology Consult History Provided By: Patient Limitations to Obtaining History: Clinical Condition Current Medications: Active Medications Acetaminophen (Tylenol -) 650 mg PO Q6H PRN PRN Reason: FEVER Albuterol/Ipratropium (Duoneb -) 1 amp NEB RQID [facility] Last Admin: 07/20/19 16:00 Dose: 1 amp Atorvastatin Calcium (Lipitor -) 20 mg PO HS [facility] Last Admin: 07/19/19 21:23 Dose: 20 mg Azithromycin (Zithromax -) 250 mg PO DAILY [facility] Last Admin: 07/20/19 10:29 Dose: 250 mg Budesonide/Formoterol Fumarate (Symbicort 160/4.5mcg -) 2 puff IH BID [facility] Last Admin: 07/20/19 10:29 Dose: 2 puff Clonazepam (Klonopin -) 0.5 mg PO BID [facility] Last Admin: 07/20/19 10:27 Dose: 0.5 mg Clopidogrel Bisulfate (Plavix -) 75 mg PO DAILY [facility] Last Admin: 07/20/19 10:28 Dose: 75 mg Diltiazem HCl (Cardizem -) 30 mg PO Q6HPO [facility] Last Admin: 07/20/19 17:46 Dose: 30 mg Enoxaparin Sodium (Lovenox -) 40 mg SQ DAILY [facility] Last Admin: 07/20/19 10:27 Dose: 40 mg Folic Acid (Folic Acid -) 1 mg PO DAILY [facility] Last Admin: 07/20/19 10:27 Dose: 1 mg Methotrexate (Mexate -) 7.5 mg PO We@1000 [facility] Last Admin: 07/19/19 10:43 Dose: 7.5 mg Methylprednisolone Sodium Succinate (Solu-Medrol -) 40 mg IVPB Q8H-IV [facility] Last Admin: 07/20/19 17:47 Dose: 40 mg Pantoprazole Sodium (Protonix -) 20 mg PO DAILY [facility] Last Admin: 07/20/19 10:28 Dose: 20 mg Tiotropium [place] (Spiriva Respimat) 2 puff IH DAILY [facility] Last Admin: 07/20/19 10:28 Dose: 2 puff Allergies: Allergies Allergy/AdvReac Type Severity Reaction Status Date / Time Penicillins Allergy Severe Rash Verified 07/16/19 06:46 seafood Allergy Severe Rash Uncoded 07/16/19 06:46 Does patient have pain?: Yes (Appears to be in significant discomfort.) Hx Alcohol Use: No Hx Substance Use: No Hx Substance Use Treatment: No Current Medical Exam-Psy Attention: Alert Orientation: Time, Person, Place Expressive: Coherent Receptive: Age Appropriate Comprehension of Spoken Words Hallucinations: Absent Thought Process: Intact Depression: Severe Hopelessness: Yes Loss of Interest: Yes Anxiety Level: Severe Danger to Self and Others: No (He admitted to wishing he would not wake up if he were unconscious, but he clearly denied that he would attempt to take his life.) Sleep: Poorly Appetite: Good, Fair Problem List - Problem (1) Major depress dis, severe Code(s): F32.2 - MAJOR DEPRESSV DISORD, SINGLE EPSD, SEV W/O PSYCH FEATURES (2) Anxiety about health Code(s): F41.8 - OTHER SPECIFIED ANXIETY DISORDERS Assessment/Plan Mr. Noel was receptive to the assessment session. However, he struggled with speaking due to breathing difficulty and mucus being coughed up during the session. Although formal memory testing was not performed, he was able to share past, recent and current information about family, jobs and other experiences. He did not appear to be easily distracted. He indicated that he requires assistance with filling out paperwork for getting on the lung transplant list. Perhaps a volunteer or nurse's aide could be assigned to that task. Supportive counseling will continue to be provided.
[2019-07-20] MEDS: ATORVASTATIN CA 20 MG TABLET (FP) PO SCH (22:00)
[2019-07-21] MEDS: dilTIAZem HCL 30 MG TABLET (FP) PO SCH ×4 (00:10→17:06)
[2019-07-21] MEDS: methylPREDNISolone NA SUCC 40 MG/1 ML VIAL IVPB SCH ×3 (01:51→17:06)
[2019-07-21 07:17] LABS: BASO % 0.1 % (0-2.0); HEMATOCRIT 29.3 % (35.4-49); HEMOGLOBIN 9.8 GM/dL (11.7-16.9); LYMPH % 0.8 % (8-40); MCH 30.8 pg (25.7-33.7); MCHC 33.4 g/dl (32.0-35.9); MEAN CELL VOLUME 92.3 fl (80-96); MEAN PLT VOLUME 7.3 fl (7.5-11.1); MONO % 1.4 % (3.8-10.2); NEUT % 97.7 % (42.8-82.8); PLATELET COUNT 222 K/MM3 (134-434); RBC 3.18 M/mm3 (4.00-5.60); WHITE BLOOD COUNT 10.9 K/mm3 (4.0-10.0)
[2019-07-21 07:44] LABS: BLOOD UREA NITROGEN 21.3 mg/dL (7-18); CALCIUM 9.1 mg/dL (8.5-10.1); CREATININE 0.6 mg/dL (0.55-1.3); POTASSIUM 5.2 mmol/L (3.5-5.1)
--- NOTE | 2019-07-21 07:56 | PN ---
Progress Note, Physician Chief Complaint: Patient remained stable less shortness of breath, feeling weak and hopeless - Current Medication List Current Medications: Active Medications Acetaminophen (Tylenol -) 650 mg PO Q6H PRN PRN Reason: FEVER Albuterol/Ipratropium (Duoneb -) 1 amp NEB RQID [facility] Last Admin: 07/20/19 20:08 Dose: 1 amp Atorvastatin Calcium (Lipitor -) 20 mg PO HS [facility] Last Admin: 07/20/19 22:00 Dose: 20 mg Azithromycin (Zithromax -) 250 mg PO DAILY [facility] Last Admin: 07/20/19 10:29 Dose: 250 mg Budesonide/Formoterol Fumarate (Symbicort 160/4.5mcg -) 2 puff IH BID [facility] Last Admin: 07/20/19 22:00 Dose: 2 puff Clonazepam (Klonopin -) 0.5 mg PO BID [facility] Last Admin: 07/20/19 22:00 Dose: 0.5 mg Clopidogrel Bisulfate (Plavix -) 75 mg PO DAILY [facility] Last Admin: 07/20/19 10:28 Dose: 75 mg Diltiazem HCl (Cardizem -) 30 mg PO Q6HPO [facility] Last Admin: 07/21/19 05:46 Dose: 30 mg Enoxaparin Sodium (Lovenox -) 40 mg SQ DAILY [facility] Last Admin: 07/20/19 10:27 Dose: 40 mg Folic Acid (Folic Acid -) 1 mg PO DAILY [facility] Last Admin: 07/20/19 10:27 Dose: 1 mg Methotrexate (Mexate -) 7.5 mg PO We@1000 [facility] Last Admin: 07/19/19 10:43 Dose: 7.5 mg Methylprednisolone Sodium Succinate (Solu-Medrol -) 40 mg IVPB Q8H-IV [facility] Last Admin: 07/21/19 01:51 Dose: 40 mg Pantoprazole Sodium (Protonix -) 20 mg PO DAILY [facility] Last Admin: 07/20/19 10:28 Dose: 20 mg Tiotropium [place] (Spiriva Respimat) 2 puff IH DAILY [facility] Last Admin: 07/20/19 10:28 Dose: 2 puff - Objective Vital Signs: Vital Signs Temperature 98 F 07/21/19 05:43 Pulse Rate 90 07/21/19 05:43 Respiratory Rate 16 01/24/20 05:43 Blood Pressure 130/75 01/24/20 05:43 O2 Sat by Pulse Oximetry (%) 100 07/20/19 21:00 Middle aged sick looking man on BIPAP HEENT: Mm moist, no anemia, PERRLA EOMI NECK: No JVD No Bruit CHEST: B/L minimal wheezes CVS: S1S2 Tachycardia ABD: Non tender Bs + EXT: Trace edema 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 azithromycin follow-up pulmonary recommendations Code(s): J96.01 - ACUTE RESPIRATORY FAILURE WITH HYPOXIA; J96.02 - ACUTE RESPIRATORY FAILURE WITH HYPERCAPNIA (2) COPD exacerbation Assessment/Plan: cont IV asteroids taper Nebs and BiPAP Code(s): J44.1 - CHRONIC OBSTRUCTIVE PULMONARY DISEASE W (ACUTE) EXACERBATION (3) Respiratory acidosis Assessment/Plan: Due to Hypercarbia now improved Code(s): E87.2 - ACIDOSIS (4) Anxiety and depression Assessment/Plan: Cont Home meds Code(s): F41.9 - ANXIETY DISORDER, UNSPECIFIED; F32.9 - MAJOR DEPRESSIVE DISORDER, SINGLE EPISODE, UNSPECIFIED (5) Diastolic CHF Assessment/Plan: F/U BMP PRN Lasix and Ramipril Code(s): I50.30 - UNSPECIFIED DIASTOLIC (CONGESTIVE) HEART FAILURE Qualifiers: Heart failure chronicity: unspecified Qualified Code(s): I50.30 - Unspecified diastolic (congestive) heart failure (6) History of coronary artery bypass graft Assessment/Plan: Compensated Code(s): Z95.1 - PRESENCE OF AORTOCORONARY BYPASS GRAFT (7) Rheumatoid arthritis Assessment/Plan: Cont Methotrexate wkly and Folic acid Code(s): M06.9 - RHEUMATOID ARTHRITIS, UNSPECIFIED (8) Palliative care encounter Assessment/Plan: For goals of care Code(s): Z51.5 - ENCOUNTER FOR PALLIATIVE CARE
[2019-07-21] MEDS: ALBUTEROL SO4 2.5/IPRATROPIUM 0.5 INH SOL 3 ML VIAL.NEB. NEB SCH ×4 (08:07→21:25)
[2019-07-21 08:58] LABS: ANISOCYTOSIS 1+; MACROCYTOSIS 0; OVALOCYTE 1+; PLATELET ESTIMATE NORMAL; TEAR DROP CELLS 1+
[2019-07-21] MEDS: ENOXAPARIN NA (PORCINE) 40 MG/0.4 ML DISP.SYRIN SQ SCH (09:53)
[2019-07-21] MEDS: AZITHROMYCIN 250 MG TABLET PO SCH (09:53)
[2019-07-21] MEDS: PANTOPRAZOLE 20 MG TABLET PO SCH (09:53)
[2019-07-21] MEDS: clonazePAM 0.5 MG TABLET PO SCH ×2 (09:54→21:24)
[2019-07-21] MEDS: FOLIC ACID 1 MG TABLET (FP) PO SCH (09:54)
[2019-07-21] MEDS: TIOTROPIUM BROMIDE 2.5 MCG (SPIRIVA) RESPIMAT INHALER IH SCH (09:54)
[2019-07-21] MEDS: CLOPIDOGREL BISULFATE 75 MG TABLET (FP) PO SCH (09:54)
[2019-07-21] MEDS: BUDESONIDE/FORMETEROL FUMARATE 160/4.5 mcg INHALER IH SCH ×2 (09:54→21:24)
--- NOTE | 2019-07-21 11:02 | PN ---
Progress Note (short form) - Note Progress Note: Awake and alert on [place] O2. Used NIPPV from 2AM until about 7AM. Appears clinically better today, less SOB. No acute events overnight. Intake & Output 07/18/19 07/19/19 07/20/19 07/21/19 23:59 23:59 23:59 23:59 Intake Total 1200 480 890 10 Output Total 300 650 300 200 Balance 900 -170 590 -190 Weight 131 lb 11.2 oz 130 lb 3.2 oz Last Vital Signs Temp Pulse Resp BP Pulse Ox 98 F 90 16 130/75 96 07/21/19 05:43 07/21/19 05:43 07/21/19 05:43 07/21/19 05:43 07/21/19 08:07 Active Medications Acetaminophen (Tylenol -) 650 mg PO Q6H PRN PRN Reason: FEVER Albuterol/Ipratropium (Duoneb -) 1 amp NEB RQID [facility] Last Admin: 07/21/19 08:07 Dose: 1 amp Atorvastatin Calcium (Lipitor -) 20 mg PO HS [facility] Last Admin: 07/20/19 22:00 Dose: 20 mg Azithromycin (Zithromax -) 250 mg PO DAILY [facility] Last Admin: 07/21/19 09:53 Dose: 250 mg Budesonide/Formoterol Fumarate (Symbicort 160/4.5mcg -) 2 puff IH BID [facility] Last Admin: 07/21/19 09:54 Dose: 2 puff Clonazepam (Klonopin -) 0.5 mg PO BID [facility] Last Admin: 07/21/19 09:54 Dose: 0.5 mg Clopidogrel Bisulfate (Plavix -) 75 mg PO DAILY [facility] Last Admin: 07/21/19 09:54 Dose: 75 mg Diltiazem HCl (Cardizem -) 30 mg PO Q6HPO [facility] Last Admin: 07/21/19 05:46 Dose: 30 mg Enoxaparin Sodium (Lovenox -) 40 mg SQ DAILY [facility] Last Admin: 07/21/19 09:53 Dose: 40 mg Folic Acid (Folic Acid -) 1 mg PO DAILY [facility] Last Admin: 07/21/19 09:54 Dose: 1 mg Methotrexate (Mexate -) 7.5 mg PO We@1000 [facility] Last Admin: 07/19/19 10:43 Dose: 7.5 mg Methylprednisolone Sodium Succinate (Solu-Medrol -) 40 mg IVPB Q8H-IV [facility] Last Admin: 07/21/19 09:53 Dose: 40 mg Pantoprazole Sodium (Protonix -) 20 mg PO DAILY [facility] Last Admin: 07/21/19 09:53 Dose: 20 mg Tiotropium [place] (Spiriva Respimat) 2 puff IH DAILY [facility] Last Admin: 07/21/19 09:54 Dose: 2 puff Constitutional: Yes: Less tachypneic on [place] O2 Eyes: Yes: Conjunctiva Clear, EOM Intact HENT: Yes: Atraumatic, Normocephalic Neck: Yes: Supple, Trachea Midline Cardiovascular: Yes: Regular Rate and Rhythm Respiratory: Yes: Poor Air Entry ...Clubbing: No Gastrointestinal: Yes: Normal Bowel Sounds, Soft. No: Tenderness Edema: No Neurological: Yes: Alert, Oriented Labs: Laboratory Results - last 24 hr 07/21/19 07/21/19 05:58 05:58 WBC 10.9 H RBC 3.18 L Hgb 9.8 L Hct 29.3 L MCV 92.3 MCH 30.8 MCHC 33.4 RDW 17.0 H Plt Count 222 MPV 7.3 L Absolute Neuts (auto) 10.7 H Neutrophils % 97.7 H Neutrophils % (Manual) 97.0 H Band Neutrophils % 1.0 Lymphocytes % 0.8 L Lymphocytes % (Manual) 2.0 L Monocytes % 1.4 L Monocytes % (Manual) 0 L Eosinophils % 0.0 Eosinophils % (Manual) 0.0 Basophils % 0.1 Basophils % (Manual) 0.0 Myelocytes % (Man) 0 D Promyelocytes % (Man) 0 Blast Cells % (Manual) 0 Nucleated RBC % 0 Metamyelocytes 0 Hypochromia 0 Platelet Estimate Normal Platelet Comment Present Polychromasia 1+ Poikilocytosis 1+ Basophilic Stippling 1+ Anisocytosis 1+ Microcytosis 1+ Macrocytosis 0 Tear Drop Cells 1+ Ovalocytes 1+ Sodium 140 Potassium 5.2 H Chloride 99 Carbon Dioxide 38 H Anion Gap 2 L BUN 21.3 H Creatinine 0.6 Est GFR (CKD-EPI)AfAm 124.89 Est GFR (CKD-EPI)NonAf 107.76 Random Glucose 104 Calcium 9.1 Problem List - Problems (1) Acute on chronic respiratory failure with hypoxia and hypercapnia Code(s): J96.21 - ACUTE AND CHRONIC RESPIRATORY FAILURE WITH HYPOXIA; J96.22 - ACUTE AND CHRONIC RESPIRATORY FAILURE WITH HYPERCAPNIA (2) COPD exacerbation Code(s): J44.1 - CHRONIC OBSTRUCTIVE PULMONARY DISEASE W (ACUTE) EXACERBATION Assessment/Plan Acute on Chronic Hypoxic and Hypercapneic Respiratory Failure Acute COPD Exacerbation/End Stage COPD LV Diastolic Dysfunction Pulmonary HTN CAD s/p CABG HTN Hyperlipidemia Rheumatoid Arthritis - Will attempt wean IV Medrol tomorrow - inhaled bronchodilators - O2 to keep SpO2 >90% - must have NIPPV support at night and PRN during day - Zithromax - DVT prophylaxis - Prognosis guarded - Ongoing discussions for goals of care Dr Reynolds
[2019-07-21] MEDS: ATORVASTATIN CA 20 MG TABLET (FP) PO SCH (21:24)
[2019-07-22] MEDS: methylPREDNISolone NA SUCC 40 MG/1 ML VIAL IVPB SCH ×2 (01:20→10:15)
[2019-07-22] MEDS: dilTIAZem HCL 30 MG TABLET (FP) PO SCH ×4 (01:20→17:00)
[2019-07-22] MEDS: ALBUTEROL SO4 2.5/IPRATROPIUM 0.5 INH SOL 3 ML VIAL.NEB. NEB SCH ×4 (07:35→20:40)
--- NOTE | 2019-07-22 09:46 | PN ---
Progress Note, Physician Chief Complaint: Patient remained stable less shortness of breath, feeling weak and hopeless - Current Medication List Current Medications: Active Medications Acetaminophen (Tylenol -) 650 mg PO Q6H PRN PRN Reason: FEVER Albuterol/Ipratropium (Duoneb -) 1 amp NEB RQID [facility] Last Admin: 07/22/19 07:35 Dose: 1 amp Atorvastatin Calcium (Lipitor -) 20 mg PO HS [facility] Last Admin: 07/21/19 21:24 Dose: 20 mg Azithromycin (Zithromax -) 250 mg PO DAILY [facility] Last Admin: 07/21/19 09:53 Dose: 250 mg Budesonide/Formoterol Fumarate (Symbicort 160/4.5mcg -) 2 puff IH BID [facility] Last Admin: 07/21/19 21:24 Dose: 2 puff Clonazepam (Klonopin -) 0.5 mg PO BID [facility] Last Admin: 07/21/19 21:24 Dose: 0.5 mg Clopidogrel Bisulfate (Plavix -) 75 mg PO DAILY [facility] Last Admin: 07/21/19 09:54 Dose: 75 mg Diltiazem HCl (Cardizem -) 30 mg PO Q6HPO [facility] Last Admin: 07/22/19 05:56 Dose: 30 mg Enoxaparin Sodium (Lovenox -) 40 mg SQ DAILY [facility] Last Admin: 07/21/19 09:53 Dose: 40 mg Folic Acid (Folic Acid -) 1 mg PO DAILY [facility] Last Admin: 07/21/19 09:54 Dose: 1 mg Methotrexate (Mexate -) 7.5 mg PO We@1000 [facility] Last Admin: 07/19/19 10:43 Dose: 7.5 mg Methylprednisolone Sodium Succinate (Solu-Medrol -) 40 mg IVPB Q8H-IV [facility] Last Admin: 07/22/19 01:20 Dose: 40 mg Pantoprazole Sodium (Protonix -) 20 mg PO DAILY [facility] Last Admin: 07/21/19 09:53 Dose: 20 mg Tiotropium [place] (Spiriva Respimat) 2 puff IH DAILY [facility] Last Admin: 07/21/19 09:54 Dose: 2 puff - Objective Vital Signs: Vital Signs Temperature 97.9 F 07/22/19 06:00 Pulse Rate 103 H 07/22/19 06:00 Respiratory Rate 22 H 07/21/19 10:00 Blood Pressure 127/90 07/22/19 06:00 O2 Sat by Pulse Oximetry (%) 97 07/22/19 07:30 Middle aged sick looking man on BIPAP HEENT: Mm moist, no anemia, PERRLA EOMI NECK: No JVD No Bruit CHEST: B/L minimal wheezes CVS: S1S2 Tachycardia ABD: Non tender Bs + EXT: Trace edema 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 Non Focal Labs: CBC, BMP 07/21/19 05:58 07/21/19 05:58 Problem List - Problems (1) Acute respiratory failure with hypoxia and hypercarbia Assessment/Plan: Due to advanced COPD and non compliance with BIAPA, cont BIPAP, Pulmonary consult, on prednisone taper Duneb add Spiriva follow-up pulmonary recommendations Code(s): J96.01 - ACUTE RESPIRATORY FAILURE WITH HYPOXIA; J96.02 - ACUTE RESPIRATORY FAILURE WITH HYPERCAPNIA (2) COPD exacerbation Assessment/Plan: cont IV asteroids taper Nebs and BiPAP Code(s): J44.1 - CHRONIC OBSTRUCTIVE PULMONARY DISEASE W (ACUTE) EXACERBATION (3) Respiratory acidosis Assessment/Plan: Due to Hypercarbia now improved Code(s): E87.2 - ACIDOSIS (4) Anxiety and depression Assessment/Plan: Cont Home meds Code(s): F41.9 - ANXIETY DISORDER, UNSPECIFIED; F32.9 - MAJOR DEPRESSIVE DISORDER, SINGLE EPISODE, UNSPECIFIED (5) Diastolic CHF Assessment/Plan: F/U BMP PRN Lasix and Ramipril Code(s): I50.30 - UNSPECIFIED DIASTOLIC (CONGESTIVE) HEART FAILURE Qualifiers: Heart failure chronicity: unspecified Qualified Code(s): I50.30 - Unspecified diastolic (congestive) heart failure (6) History of coronary artery bypass graft Assessment/Plan: Compensated Code(s): Z95.1 - PRESENCE OF AORTOCORONARY BYPASS GRAFT (7) Rheumatoid arthritis Assessment/Plan: Cont Methotrexate wkly and Folic acid Code(s): M06.9 - RHEUMATOID ARTHRITIS, UNSPECIFIED (8) Palliative care encounter Assessment/Plan: For goals of care Code(s): Z51.5 - ENCOUNTER FOR PALLIATIVE CARE
[2019-07-22] MEDS: ENOXAPARIN NA (PORCINE) 40 MG/0.4 ML DISP.SYRIN SQ SCH (10:15)
[2019-07-22] MEDS: PANTOPRAZOLE 20 MG TABLET PO SCH (10:16)
[2019-07-22] MEDS: TIOTROPIUM BROMIDE 2.5 MCG (SPIRIVA) RESPIMAT INHALER IH SCH (10:16)
[2019-07-22] MEDS: clonazePAM 0.5 MG TABLET PO SCH ×2 (10:16→21:25)
[2019-07-22] MEDS: CLOPIDOGREL BISULFATE 75 MG TABLET (FP) PO SCH (10:16)
[2019-07-22] MEDS: FOLIC ACID 1 MG TABLET (FP) PO SCH (10:16)
[2019-07-22] MEDS: BUDESONIDE/FORMETEROL FUMARATE 160/4.5 mcg INHALER IH SCH ×2 (10:16→21:25)
[2019-07-22] MEDS: AZITHROMYCIN 250 MG TABLET PO SCH (10:16)
--- NOTE | 2019-07-22 12:32 | PN ---
Progress Note (short form) - Note Progress Note: PULMONARY Awake and alert on [place] O2. Used NIPPV HS VSS/AFEBRILE Constitutional: Yes: Less tachypneic on [place] O2 Eyes: Yes: Conjunctiva Clear, EOM Intact HENT: Yes: Atraumatic, Normocephalic Neck: Yes: Supple, Trachea Midline Cardiovascular: Yes: Regular Rate and Rhythm Respiratory: Yes: Poor Air Entry ...Clubbing: No Gastrointestinal: Yes: Normal Bowel Sounds, Soft. No: Tenderness Edema: No Neurological: Yes: Alert, Oriented Labs: NOTED Acute on Chronic Hypoxic and Hypercapneic Respiratory Failure Acute COPD Exacerbation/End Stage COPD LV Diastolic Dysfunction Pulmonary HTN CAD s/p CABG HTN Hyperlipidemia Rheumatoid Arthritis - Changed to prednisone - inhaled bronchodilators - O2 to keep SpO2 >90% - must have NIPPV support at night and PRN during day - Zithromax - DVT prophylaxis - Prognosis guarded - Ongoing discussions for goals of care Leo DAMON MD
[2019-07-22] MEDS: predniSONE 10 MG TABLET (UD) PO SCH (13:51)
[2019-07-22] MEDS: ATORVASTATIN CA 20 MG TABLET (FP) PO SCH (21:25)
[2019-07-23] MEDS: dilTIAZem HCL 30 MG TABLET (FP) PO SCH ×5 (00:10→23:52)
[2019-07-23 06:29] LABS: BASO % 0.1 % (0-2.0); HEMATOCRIT 29.4 % (35.4-49); HEMOGLOBIN 9.9 GM/dL (11.7-16.9); LYMPH % 1.1 % (8-40); MCH 31.2 pg (25.7-33.7); MCHC 33.5 g/dl (32.0-35.9); MEAN PLT VOLUME 7.2 fl (7.5-11.1); MONO % 2.3 % (3.8-10.2); NEUT % 96.5 % (42.8-82.8); PLATELET COUNT 219 K/MM3 (134-434); RBC 3.17 M/mm3 (4.00-5.60); RDW 16.9 % (11.9-15.9); WHITE BLOOD COUNT 12.2 K/mm3 (4.0-10.0)
[2019-07-23 06:54] LABS: BLOOD UREA NITROGEN 16.2 mg/dL (7-18); CALCIUM 9.2 mg/dL (8.5-10.1); CREATININE 0.7 mg/dL (0.55-1.3); POTASSIUM 5.4 mmol/L (3.5-5.1)
[2019-07-23] MEDS: ALBUTEROL SO4 2.5/IPRATROPIUM 0.5 INH SOL 3 ML VIAL.NEB. NEB SCH ×4 (07:30→20:37)
[2019-07-23 09:48] LABS: ANISOCYTOSIS 1+; MACROCYTOSIS 1+; OVALOCYTE 1+; PLATELET ESTIMATE NORMAL; TEAR DROP CELLS 1+
[2019-07-23] MEDS: predniSONE 10 MG TABLET (UD) PO SCH (10:17)
[2019-07-23] MEDS: PANTOPRAZOLE 20 MG TABLET PO SCH (10:17)
[2019-07-23] MEDS: clonazePAM 0.5 MG TABLET PO SCH ×2 (10:17→21:23)
[2019-07-23] MEDS: FOLIC ACID 1 MG TABLET (FP) PO SCH (10:17)
[2019-07-23] MEDS: AZITHROMYCIN 250 MG TABLET PO SCH (10:17)
[2019-07-23] MEDS: BUDESONIDE/FORMETEROL FUMARATE 160/4.5 mcg INHALER IH SCH ×2 (10:17→21:23)
[2019-07-23] MEDS: CLOPIDOGREL BISULFATE 75 MG TABLET (FP) PO SCH (10:17)
[2019-07-23] MEDS: TIOTROPIUM BROMIDE 2.5 MCG (SPIRIVA) RESPIMAT INHALER IH SCH (10:18)
[2019-07-23] MEDS: ENOXAPARIN NA (PORCINE) 40 MG/0.4 ML DISP.SYRIN SQ SCH (10:19)
[2019-07-23] MEDS ORDERED: SODIUM POLYSTYRENE SULFONATE 15 GM/60 ML BOTTLE PO ONE (14:20)
--- NOTE | 2019-07-23 14:20 | PN ---
Progress Note, Physician Chief Complaint: Patient remained stable less shortness of breath, feeling weak and exhausted - Current Medication List Current Medications: Active Medications Acetaminophen (Tylenol -) 650 mg PO Q6H PRN PRN Reason: FEVER Albuterol/Ipratropium (Duoneb -) 1 amp NEB RQID [facility] Last Admin: 07/23/19 11:25 Dose: 1 amp Atorvastatin Calcium (Lipitor -) 20 mg PO HS [facility] Last Admin: 07/22/19 21:25 Dose: 20 mg Azithromycin (Zithromax -) 250 mg PO DAILY [facility] Last Admin: 07/23/19 10:17 Dose: 250 mg Budesonide/Formoterol Fumarate (Symbicort 160/4.5mcg -) 2 puff IH BID [facility] Last Admin: 07/23/19 10:17 Dose: 2 puff Clonazepam (Klonopin -) 0.5 mg PO BID [facility] Last Admin: 07/23/19 10:17 Dose: 0.5 mg Clopidogrel Bisulfate (Plavix -) 75 mg PO DAILY [facility] Last Admin: 07/23/19 10:17 Dose: 75 mg Diltiazem HCl (Cardizem -) 30 mg PO Q6HPO [facility] Last Admin: 07/23/19 13:36 Dose: 30 mg Enoxaparin Sodium (Lovenox -) 40 mg SQ DAILY [facility] Last Admin: 07/23/19 10:19 Dose: 40 mg Folic Acid (Folic Acid -) 1 mg PO DAILY [facility] Last Admin: 07/23/19 10:17 Dose: 1 mg Methotrexate (Mexate -) 7.5 mg PO We@1000 [facility] Last Admin: 07/19/19 10:43 Dose: 7.5 mg Pantoprazole Sodium (Protonix -) 20 mg PO DAILY [facility] Last Admin: 07/23/19 10:17 Dose: 20 mg Prednisone (Deltasone -) 30 mg PO DAILY [facility] Last Admin: 07/23/19 10:17 Dose: 30 mg Tiotropium [place] (Spiriva Respimat) 2 puff IH DAILY [facility] Last Admin: 07/23/19 10:18 Dose: 2 puff - Objective Vital Signs: Vital Signs Temperature 98.3 F 07/23/19 09:00 Pulse Rate 94 H 07/23/19 09:00 Respiratory Rate 20 07/23/19 09:00 Blood Pressure 122/74 07/23/19 09:00 O2 Sat by Pulse Oximetry (%) 95 07/23/19 11:35 Middle aged sick looking man on BIPAP HEENT: Mm moist, no anemia, PERRLA EOMI NECK: No JVD No Bruit CHEST: B/L minimal wheezes CVS: S1S2 Tachycardia ABD: Non tender Bs + EXT: Trace edema 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 Labs: CBC, BMP 07/23/19 05:50 07/23/19 05:50 Problem List - Problems (1) Acute respiratory failure with hypoxia and hypercarbia Assessment/Plan: Due to advanced COPD and non compliance with BIAPA, cont BIPAP, Pulmonary consult, PO prednisone 30 mg daily, Duneb add Spiriva follow-up pulmonary recommendations Code(s): J96.01 - ACUTE RESPIRATORY FAILURE WITH HYPOXIA; J96.02 - ACUTE RESPIRATORY FAILURE WITH HYPERCAPNIA (2) COPD exacerbation Assessment/Plan: cont IV asteroids taper Nebs and BiPAP Code(s): J44.1 - CHRONIC OBSTRUCTIVE PULMONARY DISEASE W (ACUTE) EXACERBATION (3) Respiratory acidosis Assessment/Plan: Due to Hypercarbia now improved Code(s): E87.2 - ACIDOSIS (4) Anxiety and depression Assessment/Plan: Cont Home meds Code(s): F41.9 - ANXIETY DISORDER, UNSPECIFIED; F32.9 - MAJOR DEPRESSIVE DISORDER, SINGLE EPISODE, UNSPECIFIED (5) Diastolic CHF Assessment/Plan: F/U BMP PRN Lasix and Ramipril Code(s): I50.30 - UNSPECIFIED DIASTOLIC (CONGESTIVE) HEART FAILURE Qualifiers: Heart failure chronicity: unspecified Qualified Code(s): I50.30 - Unspecified diastolic (congestive) heart failure (6) History of coronary artery bypass graft Assessment/Plan: Compensated Code(s): Z95.1 - PRESENCE OF AORTOCORONARY BYPASS GRAFT (7) Rheumatoid arthritis Assessment/Plan: Cont Methotrexate wkly and Folic acid Code(s): M06.9 - RHEUMATOID ARTHRITIS, UNSPECIFIED (8) Palliative care encounter Assessment/Plan: For goals of care Code(s): Z51.5 - ENCOUNTER FOR PALLIATIVE CARE
[2019-07-23] MEDS ORDERED: FUROSEMIDE 20 MG TABLET (FP) PO ONE (15:19)
[2019-07-23] MEDS: ATORVASTATIN CA 20 MG TABLET (FP) PO SCH (21:23)
[2019-07-24] MEDS: dilTIAZem HCL 30 MG TABLET (FP) PO SCH ×3 (05:01→17:52)
[2019-07-24] MEDS: ALBUTEROL SO4 2.5/IPRATROPIUM 0.5 INH SOL 3 ML VIAL.NEB. NEB SCH ×4 (07:20→20:30)
--- NOTE | 2019-07-24 07:37 | PN ---
Progress Note, Physician Chief Complaint: Patient remained stable less shortness of breath, feeling weak and exhausted - Current Medication List Current Medications: Active Medications Acetaminophen (Tylenol -) 650 mg PO Q6H PRN PRN Reason: FEVER Albuterol/Ipratropium (Duoneb -) 1 amp NEB RQID [facility] Last Admin: 07/23/19 20:37 Dose: 1 amp Atorvastatin Calcium (Lipitor -) 20 mg PO HS [facility] Last Admin: 07/23/19 21:23 Dose: 20 mg Azithromycin (Zithromax -) 250 mg PO DAILY [facility] Last Admin: 07/23/19 10:17 Dose: 250 mg Budesonide/Formoterol Fumarate (Symbicort 160/4.5mcg -) 2 puff IH BID [facility] Last Admin: 07/23/19 21:23 Dose: 2 puff Clonazepam (Klonopin -) 0.5 mg PO BID [facility] Last Admin: 07/23/19 21:23 Dose: 0.5 mg Clopidogrel Bisulfate (Plavix -) 75 mg PO DAILY [facility] Last Admin: 07/23/19 10:17 Dose: 75 mg Diltiazem HCl (Cardizem -) 30 mg PO Q6HPO [facility] Last Admin: 07/24/19 05:01 Dose: 30 mg Enoxaparin Sodium (Lovenox -) 40 mg SQ DAILY [facility] Last Admin: 07/23/19 10:19 Dose: 40 mg Folic Acid (Folic Acid -) 1 mg PO DAILY [facility] Last Admin: 07/23/19 10:17 Dose: 1 mg Methotrexate (Mexate -) 7.5 mg PO We@1000 [facility] Last Admin: 07/19/19 10:43 Dose: 7.5 mg Pantoprazole Sodium (Protonix -) 20 mg PO DAILY [facility] Last Admin: 07/23/19 10:17 Dose: 20 mg Prednisone (Deltasone -) 30 mg PO DAILY [facility] Last Admin: 07/23/19 10:17 Dose: 30 mg Tiotropium [place] (Spiriva Respimat) 2 puff IH DAILY [facility] Last Admin: 07/23/19 10:18 Dose: 2 puff - Objective Vital Signs: Vital Signs Temperature 98.0 F 07/24/19 06:00 Pulse Rate 82 07/24/19 06:00 Respiratory Rate 20 07/24/19 06:00 Blood Pressure 108/69 07/24/19 06:00 O2 Sat by Pulse Oximetry (%) 98 07/24/19 03:20 Middle aged sick looking man on BIPAP HEENT: Mm moist, no anemia, PERRLA EOMI NECK: No JVD No Bruit CHEST: B/L minimal wheezes CVS: S1S2 Tachycardia ABD: Non tender Bs + EXT: Trace edema 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 Non 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 Labs: CBC, BMP 07/23/19 05:50 Problem List - Problems (1) Acute respiratory failure with hypoxia and hypercarbia Assessment/Plan: Due to advanced COPD and non compliance with BIAPA, cont BIPAP, Pulmonary consult, PO prednisone 30 mg daily, Duneb add Spiriva follow-up pulmonary recommendations Code(s): J96.01 - ACUTE RESPIRATORY FAILURE WITH HYPOXIA; J96.02 - ACUTE RESPIRATORY FAILURE WITH HYPERCAPNIA (2) COPD exacerbation Assessment/Plan: cont IV asteroids taper Nebs and BiPAP Code(s): J44.1 - CHRONIC OBSTRUCTIVE PULMONARY DISEASE W (ACUTE) EXACERBATION (3) Respiratory acidosis Assessment/Plan: Due to Hypercarbia now improved Code(s): E87.2 - ACIDOSIS (4) Anxiety and depression Assessment/Plan: Cont Home meds Code(s): F41.9 - ANXIETY DISORDER, UNSPECIFIED; F32.9 - MAJOR DEPRESSIVE DISORDER, SINGLE EPISODE, UNSPECIFIED (5) Diastolic CHF Assessment/Plan: F/U BMP PRN Lasix and Ramipril Code(s): I50.30 - UNSPECIFIED DIASTOLIC (CONGESTIVE) HEART FAILURE Qualifiers: Heart failure chronicity: unspecified Qualified Code(s): I50.30 - Unspecified diastolic (congestive) heart failure (6) History of coronary artery bypass graft Assessment/Plan: Compensated Code(s): Z95.1 - PRESENCE OF AORTOCORONARY BYPASS GRAFT (7) Rheumatoid arthritis Assessment/Plan: Cont Methotrexate wkly and Folic acid Code(s): M06.9 - RHEUMATOID ARTHRITIS, UNSPECIFIED (8) Palliative care encounter Assessment/Plan: For goals of care Code(s): Z51.5 - ENCOUNTER FOR PALLIATIVE CARE
[2019-07-24 08:03] LABS: BLOOD UREA NITROGEN 17.7 mg/dL (7-18); CREATININE 0.6 mg/dL (0.55-1.3); POTASSIUM 4.3 mmol/L (3.5-5.1)
[2019-07-24] MEDS: BUDESONIDE/FORMETEROL FUMARATE 160/4.5 mcg INHALER IH SCH ×2 (09:00→21:33)
[2019-07-24] MEDS: predniSONE 10 MG TABLET (UD) PO SCH (09:20)
[2019-07-24] MEDS: PANTOPRAZOLE 20 MG TABLET PO SCH (09:20)
[2019-07-24] MEDS: AZITHROMYCIN 250 MG TABLET PO SCH (09:20)
[2019-07-24] MEDS: ENOXAPARIN NA (PORCINE) 40 MG/0.4 ML DISP.SYRIN SQ SCH (09:20)
[2019-07-24] MEDS: FOLIC ACID 1 MG TABLET (FP) PO SCH (09:20)
[2019-07-24] MEDS: clonazePAM 0.5 MG TABLET PO SCH ×2 (09:20→21:32)
[2019-07-24] MEDS: CLOPIDOGREL BISULFATE 75 MG TABLET (FP) PO SCH (09:20)
[2019-07-24] MEDS: TIOTROPIUM BROMIDE 2.5 MCG (SPIRIVA) RESPIMAT INHALER IH SCH (09:31)
--- NOTE | 2019-07-24 10:11 | PN ---
Progress Note, Physician History of Present Illness: 64 yrs old man e advanced COPD , Pulmonary Fibrosis, Home O2 and BIPAP at Night and PRN, CAD s/p CABG, Rheumatoid arthritis, Pulmonary HTN<, HfpEF, recently discharged to [facility] on 07/11/2019 after prolonged hospitalization on Prednisone taper gradually improving, last night slept off BiPAP patient was found confused and SOB on arrival to ED O2 sat reported low with PCO2 98 patient was put on BIPAP rpt O2 sat ABG shows PCO2 59 patient patient denies any chest pain , fever or expectoration, feels weak saturating well on BIAPAP - Current Medication List Current Medications: Active Medications Acetaminophen (Tylenol -) 650 mg PO Q6H PRN PRN Reason: FEVER Albuterol/Ipratropium (Duoneb -) 1 amp NEB RQID [facility] Last Admin: 07/24/19 07:20 Dose: 1 amp Atorvastatin Calcium (Lipitor -) 20 mg PO HS [facility] Last Admin: 07/23/19 21:23 Dose: 20 mg Azithromycin (Zithromax -) 250 mg PO DAILY [facility] Last Admin: 07/24/19 09:20 Dose: 250 mg Budesonide/Formoterol Fumarate (Symbicort 160/4.5mcg -) 2 puff IH BID [facility] Last Admin: 07/24/19 09:00 Dose: 2 puff Clonazepam (Klonopin -) 0.5 mg PO BID [facility] Last Admin: 07/24/19 09:20 Dose: 0.5 mg Clopidogrel Bisulfate (Plavix -) 75 mg PO DAILY [facility] Last Admin: 07/24/19 09:20 Dose: 75 mg Diltiazem HCl (Cardizem -) 30 mg PO Q6HPO [facility] Last Admin: 07/24/19 05:01 Dose: 30 mg Enoxaparin Sodium (Lovenox -) 40 mg SQ DAILY [facility] Last Admin: 07/24/19 09:20 Dose: 40 mg Folic Acid (Folic Acid -) 1 mg PO DAILY [facility] Last Admin: 07/24/19 09:20 Dose: 1 mg Methotrexate (Mexate -) 7.5 mg PO We@1000 [facility] Last Admin: 07/19/19 10:43 Dose: 7.5 mg Pantoprazole Sodium (Protonix -) 20 mg PO DAILY [facility] Last Admin: 07/24/19 09:20 Dose: 20 mg Prednisone (Deltasone -) 30 mg PO DAILY [facility] Last Admin: 07/24/19 09:20 Dose: 30 mg Tiotropium [place] (Spiriva Respimat) 2 puff IH DAILY [facility] Last Admin: 07/24/19 09:31 Dose: 2 puff - Objective Vital Signs: Vital Signs Temperature 98 F 07/24/19 08:00 Pulse Rate 100 H 07/24/19 08:00 Respiratory Rate 20 07/24/19 08:00 Blood Pressure 102/67 07/24/19 08:00 O2 Sat by Pulse Oximetry (%) 97 07/24/19 08:14 Eyes: Yes: WNL, Conjunctiva Clear, EOM Intact HENT: Yes: WNL, Atraumatic, Normocephalic Neck: Yes: WNL, Supple, Trachea Midline Cardiovascular: Yes: WNL, Regular Rate and Rhythm Respiratory: Yes: Diminished Gastrointestinal: Yes: WNL, Normal Bowel Sounds Genitourinary: Yes: WNL Musculoskeletal: Yes: WNL Extremities: Yes: WNL Edema: No Integumentary: Yes: WNL Neurological: Yes: WNL, Alert, Oriented ...Motor Strength: WNL Psychiatric: Yes: WNL Labs: CBC, BMP 07/23/19 05:50 07/24/19 06:40 Problem List - Problems (1) Acute respiratory failure with hypoxia and hypercarbia Code(s): J96.01 - ACUTE RESPIRATORY FAILURE WITH HYPOXIA; J96.02 - ACUTE RESPIRATORY FAILURE WITH HYPERCAPNIA (2) Respiratory acidosis Code(s): E87.2 - ACIDOSIS (3) Abnormal LFTs Code(s): R79.89 - OTHER SPECIFIED ABNORMAL FINDINGS OF BLOOD CHEMISTRY (4) Abscess of calf Code(s): L02.419 - CUTANEOUS ABSCESS OF LIMB, UNSPECIFIED (5) Acute on chronic diastolic (congestive) heart failure Code(s): I50.33 - ACUTE ON CHRONIC DIASTOLIC (CONGESTIVE) HEART FAILURE (6) Acute on chronic respiratory failure with hypoxemia Code(s): J96.21 - ACUTE AND CHRONIC RESPIRATORY FAILURE WITH HYPOXIA (7) Acute on chronic respiratory failure with hypoxia and hypercapnia Code(s): J96.21 - ACUTE AND CHRONIC RESPIRATORY FAILURE WITH HYPOXIA; J96.22 - ACUTE AND CHRONIC RESPIRATORY FAILURE WITH HYPERCAPNIA (8) Acute respiratory failure Code(s): J96.00 - ACUTE RESPIRATORY FAILURE, UNSP W HYPOXIA OR HYPERCAPNIA (9) Anxiety and depression Code(s): F41.9 - ANXIETY DISORDER, UNSPECIFIED; F32.9 - MAJOR DEPRESSIVE DISORDER, SINGLE EPISODE, UNSPECIFIED (10) CAD (coronary artery disease) Code(s): I25.10 - ATHSCL HEART DISEASE OF [place] CORONARY ARTERY W/O ANG PCTRS Qualifiers: Coronary Disease-Associated Artery/Lesion type: [place] artery [place] vs. transplanted heart: [place] heart Associated angina: without angina Qualified Code(s): I25.10 - Atherosclerotic heart disease of [place] coronary artery without angina pectoris (11) COPD (chronic obstructive pulmonary disease) Code(s): J44.9 - CHRONIC OBSTRUCTIVE PULMONARY DISEASE, UNSPECIFIED Qualifiers: COPD type: emphysema Emphysema type: unspecified Qualified Code(s): J43.9 - Emphysema, unspecified (12) COPD exacerbation Code(s): J44.1 - CHRONIC OBSTRUCTIVE PULMONARY DISEASE W (ACUTE) EXACERBATION (13) Chronic pain Code(s): G89.29 - OTHER CHRONIC PAIN (14) Compression fracture of L1 lumbar vertebra Code(s): S32.010A - [place]GE COMPRESSION FRACTURE OF FIRST LUMBAR VERTEBRA, INIT Qualifiers: Encounter type: initial encounter (15) Congestive cardiac failure Code(s): I50.9 - HEART FAILURE, UNSPECIFIED (16) Cough Code(s): R05 - COUGH (17) Diastolic CHF Code(s): I50.30 - UNSPECIFIED DIASTOLIC (CONGESTIVE) HEART FAILURE Qualifiers: Heart failure chronicity: unspecified Qualified Code(s): I50.30 - Unspecified diastolic (congestive) heart failure (18) Edema Code(s): R60.9 - EDEMA, UNSPECIFIED Qualifiers: Edema type: unspecified Qualified Code(s): R60.9 - Edema, unspecified (19) Elevated WBC count Code(s): D72.829 - ELEVATED WHITE BLOOD CELL COUNT, UNSPECIFIED (20) Elevated brain natriuretic peptide (BNP) level Code(s): R79.89 - OTHER SPECIFIED ABNORMAL FINDINGS OF BLOOD CHEMISTRY (21) HTN (hypertension) Code(s): I10 - ESSENTIAL (PRIMARY) HYPERTENSION Qualifiers: Hypertension type: essential hypertension Qualified Code(s): I10 - Essential (primary) hypertension (22) History of coronary artery bypass graft Code(s): Z95.1 - PRESENCE OF AORTOCORONARY BYPASS GRAFT (23) History of percutaneous coronary intervention Code(s): Z98.89 - OTHER SPECIFIED POSTPROCEDURAL STATES * DO NOT USE * (24) Hypercarbia Code(s): R06.89 - OTHER ABNORMALITIES OF BREATHING (25) Hypercholesterolemia Code(s): E78.0 - PURE HYPERCHOLESTEROLEMIA * DO NOT USE * (26) Hyperkalemia Code(s): E87.5 - HYPERKALEMIA (27) Hyperkalemia Code(s): E87.5 - HYPERKALEMIA (28) Inguinal hernia Code(s): K40.90 - UNIL INGUINAL HERNIA, W/O OBST OR GANGR, NOT SPCF RECUR (29) Intractable pain Code(s): R52 - PAIN, UNSPECIFIED (30) LLQ pain Code(s): R10.32 - LEFT LOWER QUADRANT PAIN (31) Left groin pain Code(s): R10.32 - LEFT LOWER QUADRANT PAIN (32) Leg pain Code(s): M79.606 - PAIN IN LEG, UNSPECIFIED (33) Lower extremity edema Code(s): R60.0 - LOCALIZED EDEMA (34) Lumbar disc herniation Code(s): M51.26 - OTHER INTERVERTEBRAL DISC DISPLACEMENT, LUMBAR REGION (35) Nosebleed Code(s): R04.0 - EPISTAXIS (36) PSVT (paroxysmal supraventricular tachycardia) Code(s): I47.1 - SUPRAVENTRICULAR TACHYCARDIA (37) Pain and swelling of right lower leg Code(s): M79.661 - PAIN IN RIGHT LOWER LEG; M79.89 - OTHER SPECIFIED SOFT TISSUE DISORDERS (38) Pneumonia Code(s): J18.9 - PNEUMONIA, UNSPECIFIED ORGANISM (39) Radiculopathy Code(s): M54.10 - RADICULOPATHY, SITE UNSPECIFIED Qualifiers: Spinal region: lumbar Qualified Code(s): M54.16 - Radiculopathy, lumbar region (40) Rheumatoid arthritis Code(s): M06.9 - RHEUMATOID ARTHRITIS, UNSPECIFIED (41) Rheumatoid arthritis involving ankle with positive rheumatoid factor Code(s): M05.779 - RHEU ARTHRIT W RHEU FACTOR OF UNSP ANK/FT W/O ORG/SYS INVOLV Qualifiers: Laterality: bilateral Qualified Code(s): M05.771 - Rheumatoid arthritis with rheumatoid factor of right ankle and foot without organ or systems involvement; M05.772 - Rheumatoid arthritis with rheumatoid factor of left ankle and foot without organ or systems involvement (42) Rheumatoid arthritis of multiple sites without organ or system involvement with positive rheumatoid factor Code(s): M05.79 - RHEU ARTHRITIS W RHEU FACTOR MULT SITE W/O ORG/SYS INVOLV (43) Sinus tachycardia Code(s): R00.0 - TACHYCARDIA, UNSPECIFIED Assessment/Plan - Problems (1) Palliative care encounter Code(s): Z51.5 - ENCOUNTER FOR PALLIATIVE CARE (2) Acute on chronic diastolic (congestive) heart failure Assessment/Plan: on diltiazem F/u BUN/Cr Is and Os, daily weight, electrolytes. 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 Code(s): J96.21 - ACUTE AND CHRONIC RESPIRATORY FAILURE WITH HYPOXIA; J96.22 - ACUTE AND CHRONIC RESPIRATORY FAILURE WITH HYPERCAPNIA (4) Anxiety and depression Assessment/Plan: Pt request speaking with psychiatrist/psychologist. Code(s): F41.9 - ANXIETY DISORDER, UNSPECIFIED; F32.9 - MAJOR DEPRESSIVE DISORDER, SINGLE EPISODE, UNSPECIFIED (5) CAD (coronary artery disease) Assessment/Plan: ischemic inferior wall on stress MIBI 2013 LDL cholesteol 122 mg/dL on 05/2019. Continue atorvastatin, and keep LDL <70 mg/dL. On clopidogrel. Code(s): I25.10 - ATHSCL HEART DISEASE OF [place] CORONARY ARTERY W/O ANG PCTRS Qualifiers: Coronary Disease-Associated Artery/Lesion type: [place] artery [place] vs. transplanted heart: [place] heart Associated angina: without angina Qualified Code(s): I25.10 - Atherosclerotic heart disease of [place] coronary artery without angina pectoris (6) HTN (hypertension) Code(s): I10 - ESSENTIAL (PRIMARY) HYPERTENSION Qualifiers: Hypertension type: essential hypertension Qualified Code(s): I10 - Essential (primary) hypertension (7) History of coronary artery bypass graft Code(s): Z95.1 - PRESENCE OF AORTOCORONARY BYPASS GRAFT (8) Hypercholesterolemia Code(s): E78.0 - PURE HYPERCHOLESTEROLEMIA * DO NOT USE * (9) Depression Assessment/Plan: Code(s): F32.9 - MAJOR DEPRESSIVE DISORDER, SINGLE EPISODE, UNSPECIFIED
--- NOTE | 2019-07-24 14:35 | PN ---
Progress Note (short form) - Note Progress Note: PULMONARY Remains on BiPAP. Alert, awake, c/o diarrhea from medication. Vital Signs Period Temp Pulse Resp BP Sys/Ellison Pulse Ox Last 24 Hr 97.3 F-98.4 F 82-110 20-22 102-121/57-69 97-98 Gen: mildly tachypneic on BiPAP Heart: RRR Lung: decreased breath sounds at the bases Abd: soft, nontender Ext: no edema CBC, BMP 07/23/19 05:50 07/24/19 06:40 Active Medications Acetaminophen (Tylenol -) 650 mg PO Q6H PRN PRN Reason: FEVER Albuterol/Ipratropium (Duoneb -) 1 amp NEB RQID [facility] Last Admin: 07/24/19 11:40 Dose: 1 amp Atorvastatin Calcium (Lipitor -) 20 mg PO HS [facility] Last Admin: 07/23/19 21:23 Dose: 20 mg Azithromycin (Zithromax -) 250 mg PO DAILY [facility] Last Admin: 07/24/19 09:20 Dose: 250 mg Budesonide/Formoterol Fumarate (Symbicort 160/4.5mcg -) 2 puff IH BID [facility] Last Admin: 07/24/19 09:00 Dose: 2 puff Clonazepam (Klonopin -) 0.5 mg PO BID [facility] Last Admin: 07/24/19 09:20 Dose: 0.5 mg Clopidogrel Bisulfate (Plavix -) 75 mg PO DAILY [facility] Last Admin: 07/24/19 09:20 Dose: 75 mg Diltiazem HCl (Cardizem -) 30 mg PO Q6HPO [facility] Last Admin: 07/24/19 11:56 Dose: 30 mg Enoxaparin Sodium (Lovenox -) 40 mg SQ DAILY [facility] Last Admin: 07/24/19 09:20 Dose: 40 mg Folic Acid (Folic Acid -) 1 mg PO DAILY [facility] Last Admin: 07/24/19 09:20 Dose: 1 mg Methotrexate (Mexate -) 7.5 mg PO We@1000 [facility] Last Admin: 07/19/19 10:43 Dose: 7.5 mg Pantoprazole Sodium (Protonix -) 20 mg PO DAILY [facility] Last Admin: 07/24/19 09:20 Dose: 20 mg Prednisone (Deltasone -) 30 mg PO DAILY [facility] Last Admin: 07/24/19 09:20 Dose: 30 mg Tiotropium [place] (Spiriva Respimat) 2 puff IH DAILY [facility] Last Admin: 07/24/19 09:31 Dose: 2 puff A/P Acute on Chronic Hypoxic and Hypercapneic Respiratory Failure Acute COPD Exacerbation/End Stage COPD LV Diastolic Dysfunction Pulmonary HTN CAD s/p CABG HTN Hyperlipidemia Rheumatoid Arthritis - slow prednisone taper - inhaled bronchodilators - O2 to keep SpO2 >90% - must have BiPAP at night and PRN during day - DVT prophylaxis Problem List - Problems (1) Acute on chronic respiratory failure with hypoxia and hypercapnia Code(s): J96.21 - ACUTE AND CHRONIC RESPIRATORY FAILURE WITH HYPOXIA; J96.22 - ACUTE AND CHRONIC RESPIRATORY FAILURE WITH HYPERCAPNIA (2) COPD exacerbation Code(s): J44.1 - CHRONIC OBSTRUCTIVE PULMONARY DISEASE W (ACUTE) EXACERBATION
[2019-07-24] MEDS: ATORVASTATIN CA 20 MG TABLET (FP) PO SCH (21:32)
[2019-07-24 23:55] VITALS: BMI 21.2
[2019-07-25] MEDS: dilTIAZem HCL 30 MG TABLET (FP) PO SCH ×2 (02:44→07:30)
[2019-07-25] MEDS: ALBUTEROL SO4 2.5/IPRATROPIUM 0.5 INH SOL 3 ML VIAL.NEB. NEB SCH (08:24)
[2019-07-25 08:49] VITALS: BP 108/66; PULSE 85; TEMP 98
--- NOTE | 2019-07-25 08:57 | DS ---
Physical Examination Vital Signs: Vital Signs Temperature 98 F 07/25/19 08:47 Pulse Rate 85 07/25/19 08:47 Respiratory Rate 20 07/25/19 08:47 Blood Pressure 108/66 07/25/19 08:47 O2 Sat by Pulse Oximetry (%) 96 07/25/19 00:30 Labs: CBC, BMP 07/23/19 05:50 07/24/19 06:40 Discharge Summary Problems reviewed: Yes Reason For Visit: ACUTE ON CHRONIC RESPIRATORY FAILURE WITH HYPOXIA Current Active Problems Acute respiratory failure with hypoxia and hypercarbia (Acute) Anxiety about health (Acute) Depression (Acute) Major depress dis, severe (Acute) Palliative care encounter (Acute) Respiratory acidosis (Acute) Hospital Course: 64 yrs old man e advanced COPD , Pulmonary Fibrosis, Home O2 and BIPAP at Night and PRN, CAD s/p CABG, Rheumatoid arthritis, Pulmonary HTN, HfpEF, patient was admitted with severe respiratory status as is she slept off BiPAP due to hot weather, patient was found confused and SOB on arrival to ED O2 sat reported low with PCO2 98 patient was put on BIPAP rpt O2 sat ABG shows PCO2 59 patient patient denies any chest pain, fever or expectoration, feels weak saturating well on BIAPAP, during the course of hospitalization initially put on IV Solu- Medrol and IV antibiotics and then switched to p.o. prednisone, patient is gradually improving require pulmonary rehabilitation is being transferred to [place] for further management. Condition: Guarded - Instructions Diet, Activity, Other Instructions: Low-salt low-cholesterol diet Daily weight Patient needs BiPAP at night Patient needs slow tapering of prednisone Prednisone 30 mg daily for 2 days Prednisone 20 mg daily for 3 days Prednisone 15 mg daily for 3 days Prednisone 10 mg daily for 3 days Referrals: Yohana Hendrix MD [Primary Care Provider] - 1 Month Disposition: ALF FACILITY - Home Medications Comprehensive Discharge Medication List: Ambulatory Orders Clopidogrel Bisulfate [Plavix] 75 mg PO DAILY 05/25/18 Folic Acid 1 mg PO DAILY 05/25/18 Furosemide [Lasix] 40 mg PO DAILY 05/25/18 Methotrexate [Mexate -] 7.5 mg PO Q7D 05/25/18 Atorvastatin Calcium 20 mg PO HS 06/28/19 Fluticasone/Umeclidin/Vilanter [Trelegy Ellipta 100-62.5-25] 1 each ASDIR 07/17 Albuterol 2.5/Ipratropium 0.5 [Duoneb -] 1 amp NEB RQID amp 07/11/19 Clonazepam 0.5 mg PO BID #60 tablet MDD 2 07/11/19 Diltiazem [Cardizem -] 30 mg PO Q6HPO tablet 07/11/19 Enoxaparin [Lovenox -] 40 mg SQ DAILY disp.syrin 07/11/19 predniSONE [Deltasone -] 30 mg PO DAILY tablet 07/11/19 Acetaminophen [Tylenol .Regular Strength -] 650 mg PO Q6H PRN 07/16/19 Omeprazole 20 mg PO DAILY 07/16/19 Budesonide/Formeterol Fumarate [SYMBICORT 160/4.5mcg -] 2 puff IH BID inhaler 07/25/19 Tiotropium [place] [Spiriva Respimat] 2 puff IH DAILY inhaler 07/25/19 predniSONE [Deltasone -] 30 mg PO DAILY tablet 07/25/19 Prescription Drug Monitoring Program (I-STOP) results: I-STOP reviewed and no issues identified
[2019-07-25] MEDS ORDERED: PT OWN MED DRAWER 7, Y5N ONE (09:05)
[2019-07-25] MEDS: CLOPIDOGREL BISULFATE 75 MG TABLET (FP) PO SCH (09:07)
[2019-07-25] MEDS: predniSONE 10 MG TABLET (UD) PO SCH (09:07)
[2019-07-25] MEDS: clonazePAM 0.5 MG TABLET PO SCH (09:07)
[2019-07-25] MEDS: ENOXAPARIN NA (PORCINE) 40 MG/0.4 ML DISP.SYRIN SQ SCH (09:08)
[2019-07-25] MEDS: BUDESONIDE/FORMETEROL FUMARATE 160/4.5 mcg INHALER IH SCH (09:08)
[2019-07-25] MEDS: AZITHROMYCIN 250 MG TABLET PO SCH (09:08)
[2019-07-25] MEDS: TIOTROPIUM BROMIDE 2.5 MCG (SPIRIVA) RESPIMAT INHALER IH SCH (09:08)
[2019-07-25] MEDS: FOLIC ACID 1 MG TABLET (FP) PO SCH (09:08)
[2019-07-25] MEDS: PANTOPRAZOLE 20 MG TABLET PO SCH (09:08)
[2019-07-25] MEDS ORDERED: FUROSEMIDE 20 MG TABLET (FP) PO ONE (09:30)
--- NOTE | 2019-07-25 10:32 | PN ---
Progress Note (short form) - Note Progress Note: The patient was seen briefly. He still was feeling depredate assistance ssed and frustrated about his declining health. The patient still needs paperwork to be completed with assistance in order to be considered for he lung transplant. He is apparently being transferred to [facility]. Problem List - Problems (1) Major depress dis, severe Code(s): F32.2 - MAJOR DEPRESSV DISORD, SINGLE EPSD, SEV W/O PSYCH FEATURES (2) Anxiety about health Code(s): F41.8 - OTHER SPECIFIED ANXIETY DISORDERS
== END 2019-07-25 11:01 | DRG 189 ==
LOC: JER 05:44 → JERBED 12:25 → J4W 22:07
PROVIDERS: ADMIT Internal Medicine; ATTEND Internal Medicine
PROC: 5A09557 Assistance with Respiratory Ventilation, Greater than 96 Consecutive Hours, Continuous Positive Airway Pressure (ICD-10-PCS; principal; 2019-07-16)
DX: J96.21 Acute and chronic respiratory failure with hypoxia (principal); I50.30 Unspecified diastolic (congestive) heart failure; F32.2 Major depressive disorder, single episode, severe without psychotic features; E87.2 Acidosis; J44.1 Chronic obstructive pulmonary disease with (acute) exacerbation; I11.0 Hypertensive heart disease with heart failure; J44.9 Chronic obstructive pulmonary disease, unspecified; J96.22 Acute and chronic respiratory failure with hypercapnia; I25.10 Atherosclerotic heart disease of native coronary artery without angina pectoris; F41.8 Other specified anxiety disorders; I27.20 Pulmonary hypertension, unspecified; Z95.1 Presence of aortocoronary bypass graft; D72.829 Elevated white blood cell count, unspecified; Z21 Asymptomatic human immunodeficiency virus [HIV] infection status; E78.5 Hyperlipidemia, unspecified
CPT/HCPCS: 36415; 36600; 71045-TC-FY; 80048; 80053; 82308; 82375; 82803; 83050; 83735; 83880; 84484; 85025; 87040; 93005; 93010; 94640; 94660; 97116-GP; 97161-GP; 99285-25; J8610

== ENCOUNTER 2019-12-02 14:57 | Inpatient (IN) | payer OTHER ==
[2019-12-02 15:14] VITALS: BMI 21.6
[2019-12-02] MEDS ORDERED: ALBUTEROL SO4 HFA INHALER IH ONE ×2 (16:01→16:27)
[2019-12-02] MEDS ORDERED: ACETAMINOPHEN 1000 MG/100 ML VIAL (NON FORMULARY) IVPB ONE (16:05)
[2019-12-02] MEDS ORDERED: methylPREDNISolone NA SUCC 125 MG/2 ML VIAL IVPB ONE (16:05)
[2019-12-02 16:25] LABS: HEMATOCRIT 41.6 % (35.4-49); HEMOGLOBIN 13.7 GM/dL (11.7-16.9); MCHC 32.8 g/dl (32.0-35.9); MEAN CELL VOLUME 88.5 fl (80-96); MEAN PLT VOLUME 7.7 fl (7.5-11.1); PLATELET COUNT 468 K/MM3 (134-434); RBC 4.71 M/mm3 (4.00-5.60); RDW 15.1 % (11.9-15.9); WHITE BLOOD COUNT 18.3 K/mm3 (4.0-10.0)
[2019-12-02 16:27] LABS: VENOUS PC02 63.1 mmHg (38-52); VENOUS PH 7.31 (7.31-7.41); VENOUS PO2 < 49 mmHg (28-48)
[2019-12-02 16:28] LABS: VENOUS BASE EXCESS 3.1 mmol/L (-2-2)
[2019-12-02] MEDS ORDERED: ACETAMINOPHEN INJECTION 100 ML IVPB ONE (16:28)
[2019-12-02] MEDS ORDERED: methylPREDNISolone NA SUCC 125 MG/2 ML VIAL ONE (16:28)
[2019-12-02 16:36] LABS: INR 0.97 (0.83-1.09); PROTHROMBIN TIME (PATIENT) 11.4 SEC (9.7-13.0)
[2019-12-02 16:38] LABS: ACTIVATED PTT 32.6 SECONDS (25.2-36.5)
[2019-12-02 16:56] LABS: LIPASE 68 U/L (73-393); MAGNESIUM 2.3 mg/dL (1.8-2.4); N-TERMINAL BNP 113.1 pg/ml (5-125)
[2019-12-02 17:00] LABS: BILIRUBIN,TOTAL 1.1 mg/dL (0.2-1); BLOOD UREA NITROGEN 16.8 mg/dL (7-18); CALCIUM 9.8 mg/dL (8.5-10.1); POTASSIUM 5.1 mmol/L (3.5-5.1); TOT PROT 7.8 g/dl (6.4-8.2)
[2019-12-02] MEDS ORDERED: HYDROmorphone HCL CARPU-JECT 2 MG/1 ML DISP.SYRIN IVPUSH ONE (20:26)
[2019-12-02] MEDS ORDERED: SODIUM CHLORIDE 0.9% 500 ML INFUS.BAG IV ONE (20:29)
[2019-12-02] MEDS ORDERED: HYDROmorphone HCl 2 MG/ML VIAL ONE (20:30)
[2019-12-02] MEDS ORDERED: CEFTRIAXONE 1,000 MG in DEXTROSE 5%-WATER - 50 ML IVPB ONE (21:23)
[2019-12-02] MEDS ORDERED: AZITHROMYCIN 500 MG TABLET PO ONE (21:24)
[2019-12-02] MEDS ORDERED: AZITHROMYCIN 250 MG TABLET ONE (21:28)
[2019-12-02] MEDS ORDERED: CEFTRIAXONE 1 GM/50 ML BAG ONE (21:28)
[2019-12-02] MEDS: LACTATED RINGERS SOLUTION 1,000 ML/1,000 ML INFUS.BAG IV SCH (21:36)
[2019-12-02 23:59] LABS: URINE COLOR YELLOW
[2019-12-03] LABS: URINE APPEARANCE CLEAR; URINE BILIRUBIN NEGATIVE (NEGATIVE); URINE GLUCOSE (UA) NEGATIVE (NEGATIVE); URINE KETONE 1+ (NEGATIVE)
[2019-12-03 00:01] LABS: EPI CELLS 3.9 /uL (0-25.1); HYALINE CASTS 0.64 /uL (0-3.1); URINE BACTERIA 29.6 /uL (0-1359); URINE LEUK ESTERASE NEGATIVE (NEGATIVE); URINE NITRITE NEGATIVE (NEGATIVE); URINE PROTEIN TRACE (NEGATIVE); URINE RBC 4.2 /uL (0-23.9); URINE WBC 6.1 /uL (0-25.8)
[2019-12-03] MEDS: LACTATED RINGERS SOLUTION 1,000 ML/1,000 ML INFUS.BAG IV SCH (04:32)
[2019-12-03] MEDS: CLOPIDOGREL BISULFATE 75 MG TABLET (FP) PO SCH (09:30)
[2019-12-03] MEDS: FOLIC ACID 1 MG TABLET (FP) PO SCH (09:30)
[2019-12-03] MEDS: FUROSEMIDE 40 MG TABLET (FP) PO SCH (09:30)
[2019-12-03] MEDS: clonazePAM 0.5 MG TABLET PO SCH ×2 (09:30→21:59)
[2019-12-03] MEDS: TIOTROPIUM BROMIDE 2.5 MCG (SPIRIVA) RESPIMAT INHALER IH SCH (09:31)
[2019-12-03] MEDS: BUDESONIDE/FORMETEROL FUMARATE 160/4.5 mcg INHALER IH SCH ×2 (09:31→21:59)
[2019-12-03] MEDS ORDERED: predniSONE 5 MG TABLET (UD) PO SCH (10:00)
[2019-12-03] MEDS ORDERED: cefTRIAXone SODIUM 1 GM VIAL ONE (13:06)
[2019-12-03] MEDS ORDERED: DEXTROSE 5%-WATER - 50 ML IVPB ONE (13:07)
[2019-12-03] MEDS: CEFTRIAXONE 1 GM in DEXTROSE 5%-WATER - 50 ML IVPB SCH (13:08)
[2019-12-03] MEDS: methylPREDNISolone NA SUCC 40 MG/1 ML VIAL IVPUSH SCH (17:11)
[2019-12-03] MEDS: ALBUTEROL SO4 2.5/IPRATROPIUM 0.5 INH SOL 3 ML VIAL.NEB. NEB SCH (20:13)
[2019-12-03] MEDS: ATORVASTATIN CA 20 MG TABLET (FP) PO SCH (21:59)
[2019-12-04] MEDS: methylPREDNISolone NA SUCC 40 MG/1 ML VIAL IVPUSH SCH ×3 (01:10→17:23)
[2019-12-04] MEDS: ALBUTEROL SO4 2.5/IPRATROPIUM 0.5 INH SOL 3 ML VIAL.NEB. NEB SCH ×4 (08:05→20:17)
[2019-12-04] MEDS ORDERED: cefTRIAXone SODIUM 1 GM VIAL ONE (09:21)
[2019-12-04] MEDS ORDERED: DEXTROSE 5%-WATER - 50 ML IVPB ONE (09:21)
[2019-12-04] MEDS: ACETAMINOPHEN WITH CODEINE 300MG/30MG TABLET PO PRN ×2 (09:24→16:50)
[2019-12-04] MEDS: CEFTRIAXONE 1 GM in DEXTROSE 5%-WATER - 50 ML IVPB SCH (09:25)
[2019-12-04] MEDS: clonazePAM 0.5 MG TABLET PO SCH ×2 (09:25→21:29)
[2019-12-04] MEDS: CLOPIDOGREL BISULFATE 75 MG TABLET (FP) PO SCH (09:25)
[2019-12-04] MEDS: FUROSEMIDE 40 MG TABLET (FP) PO SCH (09:25)
[2019-12-04] MEDS: TIOTROPIUM BROMIDE 2.5 MCG (SPIRIVA) RESPIMAT INHALER IH SCH (09:25)
[2019-12-04] MEDS: FOLIC ACID 1 MG TABLET (FP) PO SCH (09:25)
[2019-12-04] MEDS: BUDESONIDE/FORMETEROL FUMARATE 160/4.5 mcg INHALER IH SCH ×2 (09:26→21:28)
[2019-12-04] MEDS: ATORVASTATIN CA 20 MG TABLET (FP) PO SCH (21:29)
[2019-12-05] MEDS: methylPREDNISolone NA SUCC 40 MG/1 ML VIAL IVPUSH SCH ×3 (02:37→17:12)
[2019-12-05] MEDS: ALBUTEROL SO4 2.5/IPRATROPIUM 0.5 INH SOL 3 ML VIAL.NEB. NEB SCH ×4 (08:00→20:25)
[2019-12-05] MEDS ORDERED: DEXTROSE 5%-WATER - 50 ML IVPB ONE (09:11)
[2019-12-05] MEDS ORDERED: cefTRIAXone SODIUM 1 GM VIAL ONE (09:11)
[2019-12-05] MEDS: clonazePAM 0.5 MG TABLET PO SCH ×2 (09:21→21:40)
[2019-12-05] MEDS: CLOPIDOGREL BISULFATE 75 MG TABLET (FP) PO SCH (09:21)
[2019-12-05] MEDS: CEFTRIAXONE 1 GM in DEXTROSE 5%-WATER - 50 ML IVPB SCH (09:21)
[2019-12-05] MEDS: FOLIC ACID 1 MG TABLET (FP) PO SCH (09:21)
[2019-12-05] MEDS: FUROSEMIDE 40 MG TABLET (FP) PO SCH (09:21)
[2019-12-05] MEDS: ACETAMINOPHEN WITH CODEINE 300MG/30MG TABLET PO PRN ×2 (09:23→16:32)
[2019-12-05] MEDS: TIOTROPIUM BROMIDE 2.5 MCG (SPIRIVA) RESPIMAT INHALER IH SCH (09:24)
[2019-12-05] MEDS: BUDESONIDE/FORMETEROL FUMARATE 160/4.5 mcg INHALER IH SCH ×2 (09:24→21:40)
[2019-12-05] MEDS: ATORVASTATIN CA 20 MG TABLET (FP) PO SCH (21:40)
[2019-12-06] MEDS: methylPREDNISolone NA SUCC 40 MG/1 ML VIAL IVPUSH SCH ×2 (02:44→09:36)
[2019-12-06 05:05] VITALS: BP 114/73; PULSE 97; TEMP 97.4
[2019-12-06] MEDS: ACETAMINOPHEN WITH CODEINE 300MG/30MG TABLET PO PRN ×2 (07:46→13:22)
[2019-12-06] MEDS: ALBUTEROL SO4 2.5/IPRATROPIUM 0.5 INH SOL 3 ML VIAL.NEB. NEB SCH ×2 (08:00→11:57)
[2019-12-06] MEDS ORDERED: cefTRIAXone SODIUM 1 GM VIAL ONE (09:24)
[2019-12-06] MEDS ORDERED: DEXTROSE 5%-WATER - 50 ML IVPB ONE (09:24)
[2019-12-06] MEDS: clonazePAM 0.5 MG TABLET PO SCH (09:36)
[2019-12-06] MEDS: CEFTRIAXONE 1 GM in DEXTROSE 5%-WATER - 50 ML IVPB SCH (09:36)
[2019-12-06] MEDS: FUROSEMIDE 40 MG TABLET (FP) PO SCH (09:36)
[2019-12-06] MEDS: TIOTROPIUM BROMIDE 2.5 MCG (SPIRIVA) RESPIMAT INHALER IH SCH (09:36)
[2019-12-06] MEDS: BUDESONIDE/FORMETEROL FUMARATE 160/4.5 mcg INHALER IH SCH (09:36)
[2019-12-06] MEDS: FOLIC ACID 1 MG TABLET (FP) PO SCH (09:36)
[2019-12-06] MEDS: CLOPIDOGREL BISULFATE 75 MG TABLET (FP) PO SCH (09:36)
== END 2019-12-06 14:43 | disposition home or self-care (01) | DRG 189 ==
LOC: JER 14:57 → J6S 20:56 → UNDOADMIN 21:45 → J6S 21:45
PROVIDERS: ADMIT Internal Medicine; ATTEND Internal Medicine
DX: J96.21 Acute and chronic respiratory failure with hypoxia (principal); J44.1 Chronic obstructive pulmonary disease with (acute) exacerbation; S32.050A Wedge compression fracture of fifth lumbar vertebra, initial encounter for closed fracture; K86.1 Other chronic pancreatitis; J45.901 Unspecified asthma with (acute) exacerbation; D72.829 Elevated white blood cell count, unspecified; F41.8 Other specified anxiety disorders; I25.10 Atherosclerotic heart disease of native coronary artery without angina pectoris; Z95.1 Presence of aortocoronary bypass graft; E78.5 Hyperlipidemia, unspecified; M06.9 Rheumatoid arthritis, unspecified; Z95.5 Presence of coronary angioplasty implant and graft
CPT/HCPCS: 36415; 71045-TC-FY; 71275-TC; 74177-TC; 80053; 81003; 82550; 82728; 82803; 83605; 83615; 83690; 83735; 83880; 84100; 84484; 85027; 85379; 85610; 85730; 86140; 86850; 86900; 86901; 87040; 87086; 93005; 93010; 94640; 94660; 99285-25; J0131; Q9967; U0003